=== PATIENT | male | born 1950 | race Caucasian/White ===

== ENCOUNTER → 2017-07-15 10:23 | Outpatient (CLI) | payer OTHER, SELFPAY ==
[2017-07-15 10:31] LABS: Squamous Epithelial Cells - UA 0 SEEN /hpf (0-5)
[2017-07-15 11:38] LABS: Color, Urine Yellow (Yellow); Glucose, Dipstick Normal (Normal); Ketone-Dipstick Negative (Negative); Leukocyte Esterase-Dipstick 25 /ul (Negative); Nitrite-Dipstick Negative (Negative); Occult Blood-Urine 25 /ul (Negative); Protein-Dipstick Negative (Negative); Specific Gravity, Urine 1.025 (1.002-1.030); Urine Bilirubin Dipstick Negative (Negative); Urine Clarity Clear (Clear); Urine Urobilinogen Normal (Normal)
[2017-07-15 11:45] LABS: Bacteria 1+ /hpf (None Seen); Red Blood Cells-Urine 0-5 SEEN /hpf (0-5); White Blood Cells 0-5 SEEN /hpf (0-5)
[2017-07-15 11:46] LABS: Calcium Oxalate Crystals Ur RARE /hpf (<or=2+); Mucous, Urine 1+ /hpf (<or=2+)
[2017-07-15 11:50] LABS: Absolute Lymphocyte Count 2.68 X10^3/ul (0.83-4.51); Absolute Neutrophil Count 5.8 X10^3/uL (2.0-7.7); Basophil# 0.01 X10^3/uL; Basophil% 0.1 % (0-1); Eosinophils% 3.2 % (0-5); Hematocrit 47.1 % (40-54); Hemoglobin 15.8 g/dl (13.0-16.5); Lymphocyte # 2.68 X10^3/ul (4.0); Lymphocyte % 28.5 % (19-41); Mean Corp Hgb Conc 33.5 g/gl (32-36); Mean Corpuscular Hgb 31.8 pg (27.0-32.0); Mean Corpuscular Volume 94.8 fL (80-94); Mean Platelet Vol. 9.3 fl (6.2-12.0); Monocyte# 0.57 X10^3/uL; Monocyte% 6.1 % (0-10); Neutrophil # 5.81 X10^3/uL (2.7-7.7); Neutrophil % 61.9 % (47-70); Platelet Count 250 K/mm3 (150-450); RBC Distribution Width CV 12.6 % (11.6-14.6); Red Blood Count 4.97 M/mm3 (4.6-6.2); White Blood Count 9.4 K/mm3 (4.4-11.0)
[2017-07-15 11:58] LABS: Microalbumin,Random Urine 19.5 mg/L (NO RANGE EST.); Microalbumin:Creatinine Ratio 9.1 mg/g CRE (<30 mg/g CRE)
[2017-07-15 12:02] LABS: Vitamin D,25 Hydroxy 52.3 ng/mL (29.95-100.01)
[2017-07-15 12:03] LABS: POSITIVE COUNT NO; POSITIVE DIFFERENTIAL NO; POSITIVE MORPHOLOGY NO
[2017-07-15 12:05] LABS: AST(SGOT) 16 U/L (15-37); Alanine Aminotransfer ALT/SGPT 26 U/L (16-61); Albumin, Serum 3.5 g/dL (3.2-5.0); Alkaline Phosphatase 49 U/L (45-117); Anion Gap 5 (5-15); BUN 13 mg/dL (7-18); BUN/Creat Ratio 17.7 RATIO (10-20); Calcium,Total 9.4 mg/dL (8.5-10.1); Chloride 100 mmol/L (98-107); Cholesterol 122 mg/dL (200); Creatinine, Serum 0.73 mg/dL (0.70-1.30); EST Glomerular Filtration Rate 113 mL/min (>60); Est Glom Filt Rate - Afr Amer 137 mL/min (>60); Globulin 3.4 g/dL (2.2-4.2); Glucose 110 mg/dL (74-106); High Density Lipoprotein 32 mg/dL; PSA,Total - Annual Screen 0.82 ng/mL (0.00-4.00); Potassium 4.2 mmol/L (3.5-5.1); Protein, Total 6.9 g/dL (6.4-8.2); Sodium Level 140 mmol/L (136-145); Thyroid Stim Hormone (TSH) 2.14 uIU/mL (0.358-3.74); Triglycerides 143 mg/dL; Very Low Density Lipoprotein 29 mg/dL (5-40)
== END ==
PROVIDERS: Family Provider Internal Medicine; PCP Internal Medicine; Visit Provider Internal Medicine
DX: E11.9 Type 2 diabetes mellitus without complications (principal); E55.9 Vitamin D deficiency, unspecified; Z12.5 Encounter for screening for malignant neoplasm of prostate
CPT/HCPCS: 36415; 80053; 80061; 81001; 82043; 82306; 82570; 84153; 84443; 85025; G0103

== ENCOUNTER → 2018-02-11 10:17 | Outpatient (CLI) | payer OTHER, SELFPAY ==
[2018-02-11 10:43] LABS: Absolute Neutrophil Count 5.1 X10^3/uL (2.0-7.7); Basophil# 0.02 X10^3/uL; Basophil% 0.2 % (0-1); Color, Urine Yellow (Yellow); Eosinophil# 0.34 X10^3/uL; Glucose, Dipstick Normal (Normal); Hematocrit 47.4 % (40-54); Hemoglobin 15.8 g/dl (13.0-16.5); Ketone-Dipstick Negative (Negative); Leukocyte Esterase-Dipstick Negative /ul (Negative); Lymphocyte % 30.3 % (19-41); Mean Corp Hgb Conc 33.3 g/gl (32-36); Mean Corpuscular Hgb 31.6 pg (27.0-32.0); Mean Corpuscular Volume 94.8 fL (80-94); Mean Platelet Vol. 8.7 fl (6.2-12.0); Monocyte# 0.53 X10^3/uL; Monocyte% 6.2 % (0-10); Neutrophil # 5.09 X10^3/uL (2.7-7.7); Neutrophil % 59.2 % (47-70); Nitrite-Dipstick Negative (Negative); Occult Blood-Urine 10 /ul (Negative); Platelet Count 184 K/mm3 (150-450); Protein-Dipstick Negative (Negative); RBC Distribution Width CV 13.5 % (11.6-14.6); RBC Distribution Width SD 46.6 fl (35.1-43.9); Specific Gravity, Urine 1.015 (1.002-1.030); Urine Bilirubin Dipstick Negative (Negative); Urine Clarity Clear (Clear); Urine Urobilinogen Normal (Normal); Urine pH 6.5 (5.0 - 8.0); White Blood Count 8.6 K/mm3 (4.4-11.0)
[2018-02-11 10:44] LABS: POSITIVE COUNT NO; POSITIVE DIFFERENTIAL NO; POSITIVE MORPHOLOGY NO
[2018-02-11 11:08] LABS: Microalbumin,Random Urine 5.9 mg/L (NO RANGE EST.); Microalbumin:Creatinine Ratio 5.3 mg/g CRE (<30 mg/g CRE)
[2018-02-11 11:16] LABS: Vitamin D,25 Hydroxy 58.8 ng/mL (29.95-100.01)
[2018-02-11 11:21] LABS: ALB/GLOB Ratio 1.2 RATIO (0.9-2.4); AST(SGOT) 19 U/L (15-37); Alanine Aminotransfer ALT/SGPT 28 U/L (16-61); Albumin, Serum 3.5 g/dL (3.2-5.0); Alkaline Phosphatase 44 U/L (45-117); Anion Gap 4 (5-15); BUN 12 mg/dL (7-18); BUN/Creat Ratio 16.1 RATIO (10-20); Calcium,Total 8.3 mg/dL (8.5-10.1); Chloride 107 mmol/L (98-107); Cholesterol 134 mg/dL (200); Creatinine, Serum 0.75 mg/dL (0.70-1.30); EST Glomerular Filtration Rate 111 mL/min (>60); Est Glom Filt Rate - Afr Amer 134 mL/min (>60); Glucose 100 mg/dL (74-106); High Density Lipoprotein 35 mg/dL; Potassium 4.5 mmol/L (3.5-5.1); Protein, Total 6.5 g/dL (6.4-8.2); Sodium Level 141 mmol/L (136-145); Thyroid Stim Hormone (TSH) 1.87 uIU/mL (0.358-3.74); Triglycerides 126 mg/dL; Very Low Density Lipoprotein 25 mg/dL (5-40)
== END ==
PROVIDERS: Family Provider Internal Medicine; PCP Internal Medicine; Referring Provider Internal Medicine; Visit Provider Internal Medicine
DX: I10 Essential (primary) hypertension (principal); E11.9 Type 2 diabetes mellitus without complications; E78.5 Hyperlipidemia, unspecified; E55.9 Vitamin D deficiency, unspecified
CPT/HCPCS: 36415; 80053; 80061; 81002; 82043; 82306; 82570; 83036; 84443; 85025

== ENCOUNTER → 2018-08-26 15:18 | Outpatient (CLI) | payer OTHER, SELFPAY ==
[2018-08-26 15:27] LABS: Bacteria 0 SEEN /hpf (None Seen); Squamous Epithelial Cells - UA 0 SEEN /hpf (0-5)
[2018-08-26 16:50] LABS: Absolute Lymphocyte Count 2.88 X10^3/ul (0.83-4.51); Absolute Neutrophil Count 4.8 X10^3/uL (2.0-7.7); Basophil# 0.02 X10^3/uL; Basophil% 0.2 % (0-1); Eosinophils% 2.4 % (0-5); Hematocrit 46.1 % (40-54); Hemoglobin 15.9 g/dl (13.0-16.5); Lymphocyte # 2.88 X10^3/ul (4.0); Lymphocyte % 33.8 % (19-41); Mean Corp Hgb Conc 34.5 g/gl (32-36); Mean Corpuscular Hgb 32.2 pg (27.0-32.0); Mean Corpuscular Volume 93.3 fL (80-94); Mean Platelet Vol. 9.1 fl (6.2-12.0); Monocyte# 0.59 X10^3/uL; Monocyte% 6.9 % (0-10); Neutrophil # 4.81 X10^3/uL (2.7-7.7); Neutrophil % 56.6 % (47-70); Platelet Count 232 K/mm3 (150-450); RBC Distribution Width CV 13.6 % (11.6-14.6); RBC Distribution Width SD 45.2 fl (35.1-43.9); Red Blood Count 4.94 M/mm3 (4.6-6.2); White Blood Count 8.5 K/mm3 (4.4-11.0)
[2018-08-26 16:51] LABS: POSITIVE COUNT NO; POSITIVE DIFFERENTIAL NO; POSITIVE MORPHOLOGY NO
[2018-08-26 17:08] LABS: Color, Urine Yellow (Yellow); Glucose, Dipstick Normal (Normal); Ketone-Dipstick 15 mg/dl (Negative); Leukocyte Esterase-Dipstick 25 /ul (Negative); Nitrite-Dipstick Negative (Negative); Occult Blood-Urine 25 /ul (Negative); Protein-Dipstick 15 mg/dl (Negative); Urine Bilirubin Dipstick Negative (Negative); Urine Clarity Clear (Clear); Urine Urobilinogen 1 mg/dl (Normal)
[2018-08-26 17:14] LABS: Microalbumin,Random Urine 31.1 mg/L (NO RANGE EST.); Microalbumin:Creatinine Ratio 13.9 mg/g CRE (<30 mg/g CRE)
[2018-08-26 17:29] LABS: ALB/GLOB Ratio 1.2 RATIO (0.9-2.4); AST(SGOT) 22 U/L (15-37); Alanine Aminotransfer ALT/SGPT 31 U/L (16-61); Albumin, Serum 3.7 g/dL (3.2-5.0); Alkaline Phosphatase 43 U/L (45-117); Anion Gap 6 (5-15); BUN 14 mg/dL (7-18); BUN/Creat Ratio 19.8 RATIO (10-20); Calcium,Total 8.4 mg/dL (8.5-10.1); Chloride 107 mmol/L (98-107); Creatinine, Serum 0.71 mg/dL (0.70-1.30); EST Glomerular Filtration Rate 117 mL/min (>60); Est Glom Filt Rate - Afr Amer 142 mL/min (>60); Globulin 3.2 g/dL (2.2-4.2); Glucose 91 mg/dL (74-106); Mucous, Urine 2+ /hpf (<or=2+); Potassium 3.9 mmol/L (3.5-5.1); Protein, Total 6.9 g/dL (6.4-8.2); Red Blood Cells-Urine 0-5 SEEN /hpf (0-5); Sodium Level 140 mmol/L (136-145); Thyroid Stim Hormone (TSH) 1.55 uIU/mL (0.358-3.74); White Blood Cells 0-5 SEEN /hpf (0-5)
[2018-08-26 17:32] LABS: Vitamin D,25 Hydroxy 64.8 ng/mL (29.95-100.01)
[2018-08-28 16:07] LABS: CHOLESTEROL TOTAL 170 mg/dL (100-199); HDL-C 41 mg/dL (>39); SMALL LDL-P 578 nmol/L (<=527); TRIGLYCERIDES 140 mg/dL (0-149)
[2018-08-29 11:56] LABS: INSULIN RESISTANCE SCORE 66 (<=45); LDL SIZE 20.3 nm (>20.5); LDL-C 101 mg/dL (0-99); LDL-P 1101 nmol/L (<1000)
== END ==
PROVIDERS: Family Provider Internal Medicine; PCP Internal Medicine; Referring Provider Internal Medicine; Visit Provider Internal Medicine
DX: I10 Essential (primary) hypertension (principal); E11.9 Type 2 diabetes mellitus without complications; E78.5 Hyperlipidemia, unspecified; E55.9 Vitamin D deficiency, unspecified
CPT/HCPCS: 36415; 80053; 80061; 81001; 82043; 82306; 82570; 83704; 84443; 85025

== ENCOUNTER 2019-03-28 19:12 | Emergency (ER) | payer OTHER, SELFPAY ==
[2019-03-28 19:14] VITALS: BP 167/95; PULSE 95; RESP 14; TEMP 36.4; O2SAT 97; O2SAT 98; BMI 27.7
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
--- NOTE | 2019-03-28 19:22 | ED.RN ---
family contacted left message at this time
[2019-03-28 19:24] VITALS: PULSE 98; RESP 17; O2SAT 98
[2019-03-28 19:27] LABS: Absolute Lymphocyte Count 8.03 X10^3/uL (0.83-4.51); Absolute Neutrophil Count 6.1 X10^3/uL (2.0-7.7); Basophil# 0.06 X10^3/uL; Basophil% 0.4 % (0-1); Eosinophil# 0.31 X10^3/uL; Hematocrit 46.5 % (40-54); Hemoglobin 15.8 g/dL (13.0-16.5); Lymphocyte # 8.03 X10^3/ul (4.0); Lymphocyte % 51.3 % (19-41); Mean Corpuscular Hgb 32.6 pg (27.0-32.0); Mean Corpuscular Volume 96.1 fL (80-94); Mean Platelet Vol. 8.8 fl (6.2-12.0); Monocyte# 1.09 X10^3/uL; NRBC Flagged by Analyzer 0 % (0-5); Neutrophil # 6.08 X10^3/uL (2.7-7.7); Neutrophil % 38.8 % (47-70); POSITIVE DIFFERENTIAL YES; POSITIVE MORPHOLOGY YES; Platelet Count 287 K/mm3 (150-450); RBC Distribution Width CV 12.8 % (11.6-14.6); RBC Distribution Width SD 45.4 fl (35.1-43.9); Red Blood Count 4.84 M/mm3 (4.6-6.2); White Blood Count 15.7 K/mm3 (4.4-11.0)
[2019-03-28] MEDS: 0.9% Normal Saline 1,000 ML 1000 ML IV (19:28)
[2019-03-28] MEDS: fentaNYL 100 MCG/2 ML Ampul 50 MCG IV (19:28)
[2019-03-28 19:29] LABS: Differential Indicated SCAN CRITERIA MET
[2019-03-28] MEDS: Diphth,Pertuss(Acell),Tet Vac 0.5 ML Vial IM (19:29)
[2019-03-28] MEDS: Ondansetron 4 MG/2 ML Vial IV (19:29)
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
[2019-03-28 19:40] VITALS: BP 195/100; PULSE 105; RESP 22; O2SAT 97
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
[2019-03-28 19:48] LABS: Differential Comment SCANNED
[2019-03-28 19:59] LABS: ALB/GLOB Ratio 1.3 RATIO (0.9-2.4); AST(SGOT) 88 U/L (15-37); Alanine Aminotransfer ALT/SGPT 82 U/L (16-61); Albumin, Serum 3.9 g/dL (3.2-5.0); Alkaline Phosphatase 52 U/L (45-117); Anion Gap 6 (5-15); BUN 18 mg/dL (7-18); BUN/Creat Ratio 18.5 RATIO (10-20); Calcium,Total 9.1 mg/dL (8.5-10.1); Chloride 107 mmol/L (98-107); Creatinine, Serum 0.97 mg/dL (0.70-1.30); EST Glomerular Filtration Rate 81 mL/min (>60); Est Glom Filt Rate - Afr Amer 98 mL/min (>60); Estimated Creatinine Clearance 76.55 ml/min; Glucose 150 mg/dL (74-106); Potassium 3.7 mmol/L (3.5-5.1); Protein, Total 6.9 g/dL (6.4-8.2); Sodium Level 141 mmol/L (136-145)
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
--- NOTE | 2019-03-28 20:04 | ED.RN ---
All belongings given to , Ar. Cell phone was on found in belongings or on pt.
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
== END 2019-03-28 20:04 | disposition short-term general hospital (02) ==
PROVIDERS: Emergency Provider Emergency Medicine; Family Provider Internal Medicine; PCP Internal Medicine
DX: S82.251A Displaced comminuted fracture of shaft of right tibia, initial encounter for closed fracture (principal); S06.9X9A Unspecified intracranial injury with loss of consciousness of unspecified duration, initial encounter; S00.01XA Abrasion of scalp, initial encounter; V03.00XA Pedestrian on foot injured in collision with car, pick-up truck or van in nontraffic accident, initial encounter; Y93.01 Activity, walking, marching and hiking; Y92.481 Parking lot as the place of occurrence of the external cause; Y99.9 Unspecified external cause status; E11.9 Type 2 diabetes mellitus without complications; I10 Essential (primary) hypertension; E78.5 Hyperlipidemia, unspecified; Z79.01 Long term (current) use of anticoagulants; Z79.84 Long term (current) use of oral hypoglycemic drugs; Z79.899 Other long term (current) drug therapy; F17.200 Nicotine dependence, unspecified, uncomplicated
CPT/HCPCS: 29515; 70450; 71045; 72125; 72170; 73590; 80053; 85025; 90715; 96361; 96374; 96375; 99285; J7030; A4216; J2405

== ENCOUNTER 2019-03-31 15:30 | Inpatient (IN) | payer OTHER, MEDICARE, SELFPAY ==
[2019-03-31 15:45] VITALS: BP 147/88; PULSE 85; RESP 16; TEMP 36.6; O2SAT 96; BMI 25.5
[2019-03-31 17:46] LABS: Bedside Glucose 151 mg/dL (70-110)
--- NOTE | 2019-03-31 19:34 | NURSING ---
Pt states he took scopolamine patch off once he got here.
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
[2019-03-31 22:00] VITALS: BP 137/83; PULSE 88; RESP 18; TEMP 36.6; O2SAT 97
[2019-03-31] MEDS: MELATONIN 3 MG TABLET PO (22:09)
[2019-03-31] MEDS: BACITRACIN/POLYMYXIN B 15 GM Tube 1 APPLIC TOPICAL (22:10)
[2019-03-31] MEDS: Famotidine 20 MG Tablet PO (22:10)
[2019-03-31] MEDS: Senna/Docusate Sodium 1 Tablet 2 TABLET PO (22:11)
[2019-03-31] MEDS: oxyCODONE 5 MG Tablet PO (22:11)
[2019-03-31] MEDS: Pravastatin 20 MG Tablet 10 MG PO (22:11)
[2019-03-31 22:26] LABS: Bedside Glucose 118 mg/dL (70-110)
--- NOTE | 2019-04-01 03:26 | NURSING ---
Reviewed and agree with LPNs handoff
[2019-04-01 05:53] LABS: Absolute Lymphocyte Count 2.29 X10^3/uL (0.83-4.51); Absolute Neutrophil Count 4.1 X10^3/uL (2.0-7.7); Basophil# 0.04 X10^3/uL; Basophil% 0.6 % (0-1); Eosinophil# 0.17 X10^3/uL; Eosinophils% 2.3 % (0-5); Hematocrit 25.9 % (40-54); Hemoglobin 8.3 g/dL (13.0-16.5); Lymphocyte # 2.29 X10^3/ul (4.0); Lymphocyte % 31.6 % (19-41); Mean Corpuscular Hgb 31.7 pg (27.0-32.0); Mean Corpuscular Volume 98.9 fL (80-94); Mean Platelet Vol. 8.8 fl (6.2-12.0); Monocyte# 0.61 X10^3/uL; Monocyte% 8.4 % (0-10); NRBC Flagged by Analyzer 0.3 % (0-5); Neutrophil % 56.7 % (47-70); Platelet Count 188 K/mm3 (150-450); RBC Distribution Width CV 13.3 % (11.6-14.6); RBC Distribution Width SD 48.3 fl (35.1-43.9); Red Blood Count 2.62 M/mm3 (4.6-6.2); White Blood Count 7.2 K/mm3 (4.4-11.0)
[2019-04-01] MEDS: oxyCODONE 5 MG Tablet PO (06:11)
[2019-04-01] MEDS: Enoxaparin 40 MG/0.4 ML Syringe SC (06:11)
[2019-04-01] MEDS: Magnesium Hydroxide 30 ML UDC PO (06:12)
[2019-04-01 06:15] LABS: Bedside Glucose 125 mg/dL (70-110)
[2019-04-01 06:19] LABS: Anion Gap 6 (5-15); BUN 11 mg/dL (7-18); BUN/Creat Ratio 20.2 RATIO (10-20); Calcium,Total 7.6 mg/dL (8.5-10.1); Chloride 109 mmol/L (98-107); Creatinine, Serum 0.54 mg/dL (0.70-1.30); EST Glomerular Filtration Rate 158 mL/min (>60); Est Glom Filt Rate - Afr Amer 192 mL/min (>60); Estimated Creatinine Clearance 74.25 ml/min; Glucose 123 mg/dL (74-106); Potassium 3.8 mmol/L (3.5-5.1); Sodium Level 144 mmol/L (136-145)
[2019-04-01 06:40] VITALS: O2SAT 98
[2019-04-01] MEDS: Famotidine 20 MG Tablet PO ×2 (08:05→21:29)
[2019-04-01] MEDS: Lisinopril 20 MG Tablet PO (08:05)
[2019-04-01] MEDS: LINAGLIPTIN 5 MG TABLET PO (08:05)
[2019-04-01] MEDS: metFORMIN HCl 500 MG Tablet PO ×2 (08:05→16:47)
[2019-04-01] MEDS: Senna/Docusate Sodium 1 Tablet 2 TABLET PO ×2 (08:05→21:39)
[2019-04-01 08:07] VITALS: BP 140/77; PULSE 80; RESP 18; TEMP 36.9; O2SAT 97
[2019-04-01] MEDS: BACITRACIN/POLYMYXIN B 15 GM Tube 1 APPLIC TOPICAL ×2 (09:09→21:39)
[2019-04-01 11:21] LABS: Bedside Glucose 110 mg/dL (70-110)
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
--- NOTE | 2019-04-01 16:08 | CHAPLAIN ---
Type of Pastoral Visit _x__ Initial Visit ___ Follow-up Visit ___ On-call Visit ___ General Patient Visit ___ Spiritual Assessment ___ Family Conference ___ Bereavement ___ Rapid Response ___ Code Blue ___ Other (describe below) Pastoral Care Referral From _x__ Patient ___ Family ___ Nurse ___ Physician ___ Marble Cutter ___ Bulker ___ Other (describe below) Sacrament/Intervention _x__ Active listening ___ Anointing ___ Restoration ___ Bereavement ___ Communion ___ Elvia exploration ___ _x__ Life review ___ Prayer ___ Reconciliation ___ Sacrament of Sick _x__ Supportive presence ___ Wedding ___ Other (describe below) Pastoral Comments
[2019-04-01 17:06] LABS: Bedside Glucose 122 mg/dL (70-110)
[2019-04-01 20:33] VITALS: BP 139/83; PULSE 90; RESP 16; TEMP 36.7; O2SAT 98
[2019-04-01] MEDS: MELATONIN 3 MG TABLET PO (21:28)
[2019-04-01] MEDS: Pravastatin 20 MG Tablet 10 MG PO (21:39)
[2019-04-01] MEDS: Bisacodyl 10 MG Suppository RECTAL (21:40)
[2019-04-01 21:46] LABS: Bedside Glucose 121 mg/dL (70-110)
--- NOTE | 2019-04-02 05:08 | NURSING ---
Reviewed and agree with LPNs handoff
[2019-04-02] MEDS: Enoxaparin 40 MG/0.4 ML Syringe SC (06:09)
[2019-04-02] MEDS: oxyCODONE 5 MG Tablet PO (06:09)
[2019-04-02 06:41] LABS: Bedside Glucose 120 mg/dL (70-110)
[2019-04-02 07:09] VITALS: O2SAT 94
[2019-04-02 07:31] VITALS: BP 153/80; PULSE 83; RESP 18; TEMP 36.8; O2SAT 100
[2019-04-02] MEDS: Famotidine 20 MG Tablet PO ×2 (09:20→21:45)
[2019-04-02] MEDS: Lisinopril 20 MG Tablet PO (09:20)
[2019-04-02] MEDS: metFORMIN HCl 500 MG Tablet PO ×2 (09:20→17:27)
[2019-04-02] MEDS: BACITRACIN/POLYMYXIN B 15 GM Tube 1 APPLIC TOPICAL ×2 (09:20→21:46)
[2019-04-02] MEDS: LINAGLIPTIN 5 MG TABLET PO (09:20)
[2019-04-02] MEDS: Senna/Docusate Sodium 1 Tablet 2 TABLET PO ×2 (09:21→21:47)
[2019-04-02 11:26] LABS: Bedside Glucose 131 mg/dL (70-110)
[2019-04-02] MEDS: Acetaminophen 500 MG Tablet 1000 MG PO ×2 (13:00→21:45)
[2019-04-02 16:06] LABS: Bedside Glucose 105 mg/dL (70-110)
[2019-04-02 19:36] VITALS: BP 100/86; PULSE 87; RESP 16; TEMP 36.7; O2SAT 99
[2019-04-02 21:11] LABS: Bedside Glucose 106 mg/dL (70-110)
[2019-04-02] MEDS: MELATONIN 3 MG TABLET PO (21:45)
[2019-04-02] MEDS: Pravastatin 20 MG Tablet 10 MG PO (21:46)
[2019-04-03] MEDS: Enoxaparin 40 MG/0.4 ML Syringe SC (06:16)
[2019-04-03 06:46] LABS: Bedside Glucose 118 mg/dL (70-110)
[2019-04-03 07:10] VITALS: O2SAT 98
[2019-04-03] MEDS: Senna/Docusate Sodium 1 Tablet 2 TABLET PO ×2 (07:49→20:56)
[2019-04-03] MEDS: LINAGLIPTIN 5 MG TABLET PO (07:49)
[2019-04-03] MEDS: Famotidine 20 MG Tablet PO ×2 (07:49→20:56)
[2019-04-03] MEDS: Lisinopril 20 MG Tablet PO (07:49)
[2019-04-03] MEDS: metFORMIN HCl 500 MG Tablet PO ×2 (07:49→17:16)
[2019-04-03] MEDS: BACITRACIN/POLYMYXIN B 15 GM Tube 1 APPLIC TOPICAL ×2 (07:50→20:55)
[2019-04-03 07:53] VITALS: BP 133/71; PULSE 79; RESP 16; TEMP 36.6; O2SAT 98
[2019-04-03] MEDS: Acetaminophen 500 MG Tablet 1000 MG PO ×2 (11:17→21:06)
[2019-04-03 11:31] LABS: Bedside Glucose 98 mg/dL (70-110)
[2019-04-03 16:51] LABS: Bedside Glucose 127 mg/dL (70-110)
[2019-04-03 19:00] VITALS: BP 119/85; BP 122/70; BP 135/68; PULSE 100; PULSE 89; PULSE 90
[2019-04-03 19:41] VITALS: BP 122/70; PULSE 89; RESP 16; TEMP 36.7; O2SAT 98
[2019-04-03 20:51] LABS: Bedside Glucose 108 mg/dL (70-110)
[2019-04-03] MEDS: MELATONIN 3 MG TABLET PO (20:56)
[2019-04-03] MEDS: Pravastatin 20 MG Tablet 10 MG PO (20:56)
[2019-04-03] MEDS: Bisacodyl 10 MG Suppository RECTAL (20:57)
[2019-04-03] MEDS: Meclizine 12.5 MG Tablet PO (20:57)
[2019-04-03 21:00] VITALS: PULSE 89; RESP 16; O2SAT 98
--- NOTE | 2019-04-04 02:10 | NURSING ---
Reviewed and agree with CLOTH LAYER documentation and charting.
[2019-04-04] MEDS: Enoxaparin 40 MG/0.4 ML Syringe SC (05:02)
[2019-04-04] MEDS: oxyCODONE 5 MG Tablet PO (05:02)
[2019-04-04 06:15] LABS: Bedside Glucose 115 mg/dL (70-110)
[2019-04-04 06:28] LABS: Absolute Lymphocyte Count 1.64 X10^3/uL (0.83-4.51); Absolute Neutrophil Count 4.3 X10^3/uL (2.0-7.7); Basophil# 0.03 X10^3/uL; Basophil% 0.4 % (0-1); Eosinophil# 0.28 X10^3/uL; Hematocrit 27.6 % (40-54); Lymphocyte # 1.64 X10^3/ul (4.0); Lymphocyte % 23.2 % (19-41); Mean Corp Hgb Conc 32.6 g/dL (32-36); Mean Corpuscular Volume 98.2 fL (80-94); Mean Platelet Vol. 8.3 fl (6.2-12.0); Monocyte# 0.73 X10^3/uL; Monocyte% 10.3 % (0-10); NRBC Flagged by Analyzer 0.7 % (0-5); Neutrophil # 4.34 X10^3/uL (2.7-7.7); Neutrophil % 61.4 % (47-70); POSITIVE MORPHOLOGY YES; Platelet Count 292 K/mm3 (150-450); RBC Distribution Width CV 13.5 % (11.6-14.6); RBC Distribution Width SD 47.1 fl (35.1-43.9); Red Blood Count 2.81 M/mm3 (4.6-6.2); White Blood Count 7.1 K/mm3 (4.4-11.0)
[2019-04-04 07:03] LABS: Differential Indicated SCAN CRITERIA MET
[2019-04-04 07:24] LABS: Hypochromasia RARE; Platelet Estimate ADEQUATE (ADEQ); Polychromasia RARE; Reactive Lymphocyte RARE
[2019-04-04] MEDS: LINAGLIPTIN 5 MG TABLET PO (07:54)
[2019-04-04] MEDS: Lisinopril 20 MG Tablet PO (07:54)
[2019-04-04] MEDS: Senna/Docusate Sodium 1 Tablet 2 TABLET PO ×2 (07:54→20:15)
[2019-04-04] MEDS: metFORMIN HCl 500 MG Tablet PO ×2 (07:55→17:05)
[2019-04-04] MEDS: Famotidine 20 MG Tablet PO ×2 (07:55→20:15)
[2019-04-04] MEDS: BACITRACIN/POLYMYXIN B 15 GM Tube 1 APPLIC TOPICAL ×2 (07:56→20:16)
[2019-04-04 08:37] VITALS: BP 121/65; PULSE 81; RESP 16; TEMP 36.6; O2SAT 98
[2019-04-04] MEDS: Meclizine 12.5 MG Tablet PO ×2 (09:32→20:15)
[2019-04-04 12:15] LABS: Bedside Glucose 115 mg/dL (70-110)
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
--- NOTE | 2019-04-04 13:17 | PCM.RU.PYE ---
Admission Information Status Changes from Prescreening?: No changes Identified Actual Problem List:: Falls, Mobility Impaired, Self Care Deficit Potential Problem List:: DVT, Bleeding, Infection, UTI, Aspiration, Falls, Skin Integrity, Depression Risk of Complications DVT: LMWH, MIHAI Hose, Sequential Compression Device Bleeding: Monitor Lab Values, Nursing to Teach Precautions for anti-coagulation therapy., Wound, if applicable, to be assessed every shift., Stroke patients assessed for lethargy or change in status. Infection: Clinical Staff to Monitor for S/S of infection:, S/S of infection include fever, redness, warmth, etc. Urinary Tract Infection: Monitor for frequency, burning, discomfort, or incontinence., Nursing will obtain urine sample for urinalysis and C&S when ordered. Aspiration: Clinical staff will monitor for coughing, drooling, congestion., Speech will evaluate swallowing and dsyphasia., Nursing will monitor patient swallowing during meals. Falls: Patient will be evaluated for Fall Precautions, Patient will be placed on Fall Precautions as indicated per protocol. Skin Breakdown: Nursing will assess skin daily using assessment tool., Nursing will place on Skin Breakdown Precautions as indicated. Pain: Clinical staff will assess patient's pain level per protocol., Medications will be given, if needed, and the pain level reassessed., Other methods: Massage, distraction, decrease stimulus, etc. used PRN. Plan of Care Patient requires physician specializing in physical medicine and rehab oversight to provide close medical supervision of rehab issues including: Pain Management, Sleep Problems, Bowel and Bladder, Medical and co-morbidity Management, DVT prophylaxis, Rehabilitation Leadership, Coordination of treatment team Patient needs Physical Therapy: For a minimum of 1 hour, At least 5 out of 7 days Patient needs Physical Therapy to improve:: Mobility, Mobility, Mobility, Strengthening, Transfers, Stretching, ROM, Endurance, Stairs, Gait, Balance Patient needs Occupational Therapy: For a minimum of 1 hour, At least 5 out of 7 days Patient needs Occupational Therapy to improve ADL's incl.: Eating, Grooming, Bathing, Dressing, Toileting, Toilet transfers, Community Reintegration, Higher functioning activities, Household tasks, Adaptive Equipment, Splinting, Other activities as determined Patient requires speech therapy: For a minimum of 1 hour, At least 5 out of 7 days Patient requires speech therapy for: Swallowing, Cognition, Language Skills, Compensatory Strategies Patient requires / Rehabilitation Nursing for: Pain Issues, Identifying and preventing risk factors, Monitoring and reporting current medical conditions, Assisting with ambulation, transfer, and all ADL's, Teaching patients about disease process and medications, Family teaching, Providing safe environment, Bowel and Bladder Issues, Skin integrity, Medication Management Patient needs Polytechnic Registrar/ Case Management for: Discharge Planning, Arranging Home Equipment or Services, Family Interventions Patient needs Dietary and Nutrition Services for: Adequate Nutrition, Nutritional Supplements, Nutritional Education Goals Patient will remain: free from falls, or injury at time of discharge. Patient will perform bed mobility at: MOD I level of assist. Patient will complete transfers from bed to chair at: MOD I level of assist. Patient will ambulate: 100 feet, with MOD I assist, with LRD Patient will complete upper body dressing at: MOD I level of assist. Patient will complete lower body dressing at: MOD I level of assist. Patient will complete toileting at: MOD I level of assist. Patient will perform bathing at: MOD I level of assist. Patient will complete grooming at: MOD I level of assist. Patient will complete home management skills at: MOD I level of assist. Patient will achieve: 12 stairs, at MOD I assist Patient will have pain level of: of 3 or less Patient's skin will: remain intact, free from infection. Patient will receive: adequate nutrition. Discharge Planning Pt Prognosis for Sig. Practical Improv. w/in Reasonable Time: Good Estimated Length of stay (days): 16 Anticipated D/C Destination: Home with Outpt Therapy Was Preadmission Assessment Accurate?: Yes
--- NOTE | 2019-04-04 16:47 | CASEMGMT ---
Social Work Spoke with patient about DME needs, ramp and discharge plans. Pt is NWB to right LE for 4-6 weeks and will be discharging home at w/c level. Therapy will work with pt on making that a safe transition. LATRICE collaborating with Oliver [facility], [place] [phone], to get DME and ramp paid for and ordered for pt at [place]. [place] will be requesting for extension for pt to DC mid-next week, if pt is ready. Coordinating to get proper paperwork in order and DME in place. Will continue to follow. LIBRADO FontanezW
[2019-04-04 17:16] LABS: Bedside Glucose 85 mg/dL (70-110)
[2019-04-04 19:37] VITALS: BP 121/68; PULSE 85; RESP 16; TEMP 36.7; O2SAT 95
[2019-04-04 20:00] VITALS: PULSE 85; RESP 16
[2019-04-04] MEDS: Pravastatin 20 MG Tablet 10 MG PO (20:15)
[2019-04-04] MEDS: MELATONIN 3 MG TABLET PO (20:15)
[2019-04-04] MEDS: Acetaminophen 500 MG Tablet 1000 MG PO (20:16)
[2019-04-04 21:20] LABS: Bedside Glucose 129 mg/dL (70-110)
--- NOTE | 2019-04-05 02:05 | NURSING ---
Reviewed and agree with COMPUTING TUTOR documentation and charting.
[2019-04-05] MEDS: Bisacodyl 10 MG Suppository RECTAL (04:31)
[2019-04-05] MEDS: Enoxaparin 40 MG/0.4 ML Syringe SC (06:20)
[2019-04-05 06:45] LABS: Bedside Glucose 122 mg/dL (70-110)
[2019-04-05 07:20] VITALS: BP 110/68; PULSE 85; RESP 16; TEMP 36.6; O2SAT 98
[2019-04-05] MEDS: BACITRACIN/POLYMYXIN B 15 GM Tube 1 APPLIC TOPICAL ×2 (07:54→21:47)
[2019-04-05] MEDS: Famotidine 20 MG Tablet PO ×2 (07:55→21:48)
[2019-04-05] MEDS: Senna/Docusate Sodium 1 Tablet 2 TABLET PO ×2 (07:55→21:48)
[2019-04-05] MEDS: LINAGLIPTIN 5 MG TABLET PO (07:55)
[2019-04-05] MEDS: Lisinopril 20 MG Tablet PO (07:55)
[2019-04-05] MEDS: metFORMIN HCl 500 MG Tablet PO ×2 (07:55→16:53)
[2019-04-05] MEDS: Meclizine 12.5 MG Tablet PO (08:32)
[2019-04-05] MEDS: oxyCODONE 5 MG Tablet PO (08:32)
[2019-04-05 11:51] LABS: Bedside Glucose 113 mg/dL (70-110)
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
[2019-04-05 16:01] LABS: Albumin, Serum 3.4 g/dL (3.2-5.0); Calcium,Total 8.9 mg/dL (8.5-10.1)
--- NOTE | 2019-04-05 19:25 | NURSING ---
Pt ambulating around unit in wheelchair with visitors.
[2019-04-05 21:45] VITALS: BP 129/68; PULSE 96; RESP 18; TEMP 36.6; O2SAT 96
[2019-04-05] MEDS: MELATONIN 3 MG TABLET PO (21:48)
[2019-04-05] MEDS: Pravastatin 20 MG Tablet 10 MG PO (21:48)
--- NOTE | 2019-04-06 02:54 | NURSING ---
Reviewed and agree with BAKING POWDER MIXER documentation and charting.
[2019-04-06] MEDS: Bisacodyl 10 MG Suppository RECTAL (05:09)
[2019-04-06] MEDS: Acetaminophen 500 MG Tablet 1000 MG PO ×2 (05:11→21:59)
[2019-04-06] MEDS: Enoxaparin 40 MG/0.4 ML Syringe SC (05:11)
[2019-04-06] MEDS: LINAGLIPTIN 5 MG TABLET PO ×3 (08:25)
[2019-04-06] MEDS: BACITRACIN/POLYMYXIN B 15 GM Tube 1 APPLIC TOPICAL ×2 (08:25→21:58)
[2019-04-06] MEDS: Senna/Docusate Sodium 1 Tablet 2 TABLET PO ×2 (08:25→21:59)
[2019-04-06] MEDS: Famotidine 20 MG Tablet PO ×2 (08:25→21:58)
[2019-04-06] MEDS: Lisinopril 20 MG Tablet PO (08:25)
[2019-04-06] MEDS: metFORMIN HCl 500 MG Tablet PO ×2 (08:25→17:03)
[2019-04-06] MEDS: Meclizine 12.5 MG Tablet PO (08:26)
[2019-04-06 09:02] VITALS: BP 123/69; PULSE 75; RESP 16; TEMP 36.7; O2SAT 97
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
[2019-04-06] MEDS: Polyethylene Glycol 3350 17 GM PACKET PO (14:54)
[2019-04-06 20:13] VITALS: BP 111/60; PULSE 89; RESP 16; TEMP 36.9; O2SAT 99
[2019-04-06] MEDS: MELATONIN 3 MG TABLET PO (21:58)
[2019-04-06] MEDS: Pravastatin 20 MG Tablet 10 MG PO (21:59)
--- NOTE | 2019-04-07 00:48 | NURSING ---
REVIEWED AND AGREE WITH PHARMACY GRADUATE INTERN'S FUNCTIONAL ASSESSMENT AND HANDOFF CHARTING.
[2019-04-07] MEDS: Enoxaparin 40 MG/0.4 ML Syringe SC (06:19)
[2019-04-07] MEDS: Acetaminophen 500 MG Tablet 1000 MG PO ×3 (06:19→22:03)
[2019-04-07 07:00] VITALS: BP 144/78; PULSE 79; RESP 16; TEMP 36.5; O2SAT 97
[2019-04-07] MEDS: Famotidine 20 MG Tablet PO ×2 (07:51→21:59)
[2019-04-07] MEDS: metFORMIN HCl 500 MG Tablet PO ×2 (07:51→17:52)
[2019-04-07] MEDS: Senna/Docusate Sodium 1 Tablet 2 TABLET PO ×2 (07:51→22:00)
[2019-04-07] MEDS: Lisinopril 20 MG Tablet PO (07:51)
[2019-04-07] MEDS: Polyethylene Glycol 3350 17 GM PACKET PO (07:51)
[2019-04-07] MEDS: BACITRACIN/POLYMYXIN B 15 GM Tube 1 APPLIC TOPICAL ×2 (07:51→21:59)
--- NOTE | 2019-04-07 09:52 | CASEMGMT ---
Social Work IDT met with patient and for Team Meeting. Discussed patient's progress in therapy. Pt is NWB to left LE. Pt is min to CGA for sit to stand, CGA hopping 80 ft with FWW, 12 steps going backward SBA, SBA for all ADLs. PT completed car transfer is CGA to SBA. Stitches in head to be removed on this day. Pt is under worker's comp insurance. [employer] has been collaborating with [employer] to get all DME and HHC approved - submitted for ramp, transport w/c, tub bench, FWW, hospital bed and HHC PT/OT3x/wk and SN 1x/wk for 6-8 weeks. Submitting update on progress on this day and requesting DC 04/13 to allow DME and ramp to be in placed to ensure pt safety returning home. Will continue to follow. Nicki Lee, [employer]
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
[2019-04-07] MEDS: LINAGLIPTIN 5 MG TABLET PO (13:35)
[2019-04-07] MEDS: Capsaicin 0.025% 1 APPLIC Tube TOPICAL (13:35)
[2019-04-07] MEDS: Meclizine 12.5 MG Tablet PO (21:58)
[2019-04-07] MEDS: APIXABAN 2.5 MG TABLET PO (21:58)
[2019-04-07] MEDS: Pravastatin 20 MG Tablet 10 MG PO (21:59)
[2019-04-07] MEDS: MELATONIN 3 MG TABLET PO (21:59)
[2019-04-07 22:00] VITALS: BP 115/66; PULSE 91; RESP 18; TEMP 36.7; O2SAT 97
--- NOTE | 2019-04-08 01:37 | NURSING ---
REVIEWED AND AGREE WITH SILK FOLDER'S FUNCTIONAL AND HANDOFF CHARTING.
[2019-04-08 07:16] VITALS: BP 121/68; PULSE 89; RESP 16; TEMP 36.6; O2SAT 97
[2019-04-08] MEDS: BACITRACIN/POLYMYXIN B 15 GM Tube 1 APPLIC TOPICAL ×2 (07:57→22:16)
[2019-04-08] MEDS: metFORMIN HCl 500 MG Tablet PO ×2 (07:58→16:57)
[2019-04-08] MEDS: Senna/Docusate Sodium 1 Tablet 2 TABLET PO ×2 (07:58→22:16)
[2019-04-08] MEDS: LINAGLIPTIN 5 MG TABLET PO (07:58)
[2019-04-08] MEDS: Lisinopril 20 MG Tablet PO (07:58)
[2019-04-08] MEDS: Famotidine 20 MG Tablet PO ×2 (07:58→22:16)
[2019-04-08] MEDS: APIXABAN 2.5 MG TABLET PO ×2 (07:58→22:15)
[2019-04-08] MEDS: Polyethylene Glycol 3350 17 GM PACKET PO (07:58)
[2019-04-08] MEDS: Acetaminophen 500 MG Tablet 1000 MG PO ×2 (07:59→16:57)
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
[2019-04-08 17:08] LABS: Vitamin D 1,25-Dihydroxy 25.2 pg/mL (19.9-79.3)
[2019-04-08 21:49] VITALS: BP 135/71; PULSE 87; RESP 16; TEMP 36.7; O2SAT 99
[2019-04-08] MEDS: Pravastatin 20 MG Tablet 10 MG PO (22:16)
[2019-04-08] MEDS: MELATONIN 3 MG TABLET PO (22:16)
[2019-04-09] MEDS: Acetaminophen 500 MG Tablet 1000 MG PO ×3 (03:51→21:58)
[2019-04-09 08:00] VITALS: BP 149/98; PULSE 72; RESP 18; TEMP 36.6; O2SAT 100
[2019-04-09] MEDS: APIXABAN 2.5 MG TABLET PO ×2 (08:04→20:32)
[2019-04-09] MEDS: metFORMIN HCl 500 MG Tablet PO ×2 (08:04→16:28)
[2019-04-09] MEDS: Lisinopril 20 MG Tablet PO (08:05)
[2019-04-09] MEDS: Polyethylene Glycol 3350 17 GM PACKET PO (08:11)
[2019-04-09] MEDS: LINAGLIPTIN 5 MG TABLET PO (08:11)
[2019-04-09] MEDS: Senna/Docusate Sodium 1 Tablet 2 TABLET PO ×2 (08:11→20:31)
[2019-04-09] MEDS: Famotidine 20 MG Tablet PO ×2 (08:11→20:32)
[2019-04-09] MEDS: BACITRACIN/POLYMYXIN B 15 GM Tube 1 APPLIC TOPICAL ×2 (08:16→20:33)
[2019-04-09 18:35] VITALS: BP 126/62; PULSE 80; RESP 16; TEMP 36.6; O2SAT 98
[2019-04-09] MEDS: Pravastatin 20 MG Tablet 10 MG PO (20:32)
[2019-04-09] MEDS: MELATONIN 3 MG TABLET PO (20:32)
[2019-04-10] MEDS: Acetaminophen 500 MG Tablet 1000 MG PO ×3 (07:07→21:20)
[2019-04-10 07:10] LABS: Bedside Glucose 112 mg/dL (70-110)
[2019-04-10 07:38] VITALS: BP 123/75; PULSE 81; RESP 16; TEMP 36.8; O2SAT 98
[2019-04-10] MEDS: LINAGLIPTIN 5 MG TABLET PO (09:01)
[2019-04-10] MEDS: Senna/Docusate Sodium 1 Tablet 2 TABLET PO ×2 (09:01→21:20)
[2019-04-10] MEDS: BACITRACIN/POLYMYXIN B 15 GM Tube 1 APPLIC TOPICAL ×2 (09:01→21:21)
[2019-04-10] MEDS: metFORMIN HCl 500 MG Tablet PO ×2 (09:01→16:15)
[2019-04-10] MEDS: APIXABAN 2.5 MG TABLET PO ×2 (09:01→21:21)
[2019-04-10] MEDS: Famotidine 20 MG Tablet PO ×2 (09:01→21:21)
[2019-04-10] MEDS: Lisinopril 20 MG Tablet PO (09:01)
[2019-04-10] MEDS: Pravastatin 20 MG Tablet 10 MG PO (21:20)
[2019-04-10] MEDS: MELATONIN 3 MG TABLET PO (21:21)
[2019-04-10 22:00] VITALS: BP 108/69; PULSE 85; RESP 16; TEMP 36.6; O2SAT 100
[2019-04-11 07:37] VITALS: BP 127/80; PULSE 87; RESP 16; TEMP 36.5; O2SAT 99
[2019-04-11] MEDS: BACITRACIN/POLYMYXIN B 15 GM Tube 1 APPLIC TOPICAL ×2 (07:57→21:48)
[2019-04-11] MEDS: metFORMIN HCl 500 MG Tablet PO ×2 (07:57→17:56)
[2019-04-11] MEDS: APIXABAN 2.5 MG TABLET PO ×2 (07:57→21:47)
[2019-04-11] MEDS: Famotidine 20 MG Tablet PO ×2 (07:57→21:48)
[2019-04-11] MEDS: LINAGLIPTIN 5 MG TABLET PO (07:57)
[2019-04-11] MEDS: Senna/Docusate Sodium 1 Tablet 2 TABLET PO ×2 (07:57→21:48)
[2019-04-11] MEDS: Polyethylene Glycol 3350 17 GM PACKET PO (07:57)
[2019-04-11] MEDS: Lisinopril 20 MG Tablet PO (07:57)
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
[2019-04-11] MEDS: Acetaminophen 500 MG Tablet 1000 MG PO ×2 (14:30→21:48)
[2019-04-11 21:23] VITALS: BP 124/66; PULSE 87; RESP 17; TEMP 36.4; O2SAT 99
[2019-04-11] MEDS: Pravastatin 20 MG Tablet 10 MG PO (21:47)
[2019-04-11] MEDS: MELATONIN 3 MG TABLET PO (21:48)
[2019-04-11 22:00] VITALS: PULSE 87; RESP 17; O2SAT 99
[2019-04-12] MEDS: Acetaminophen 500 MG Tablet 1000 MG PO ×2 (03:45→21:50)
[2019-04-12] MEDS: Lisinopril 20 MG Tablet PO (08:26)
[2019-04-12] MEDS: LINAGLIPTIN 5 MG TABLET PO ×2 (08:26)
[2019-04-12] MEDS: Senna/Docusate Sodium 1 Tablet 2 TABLET PO (08:26)
[2019-04-12] MEDS: metFORMIN HCl 500 MG Tablet PO ×2 (08:26→17:07)
[2019-04-12] MEDS: Famotidine 20 MG Tablet PO ×2 (08:27→21:49)
[2019-04-12] MEDS: BACITRACIN/POLYMYXIN B 15 GM Tube 1 APPLIC TOPICAL ×2 (08:27→21:49)
[2019-04-12] MEDS: APIXABAN 2.5 MG TABLET PO ×2 (08:27→21:49)
[2019-04-12 08:34] VITALS: BP 118/74; PULSE 89; RESP 18; TEMP 36.7; O2SAT 97
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
--- NOTE | 2019-04-12 17:04 | CASEMGMT ---
Social Work Spoke with worker's doroteo C.M. whom stated the ramp will be in place tomorrow, but unsure if DME will be delivered. Pt has 's appt tomorrow and needs DME to go home safely. Spoke with pt and and requesting to DC 04/15 once all DME is in place. C.M. agreeable. Plan: DC home 04/15 with DME and [facility] PT/OT/SN. Nicki Lee, [employer]
[2019-04-12] MEDS: MELATONIN 3 MG TABLET PO (21:48)
[2019-04-12] MEDS: Pravastatin 20 MG Tablet 10 MG PO (21:49)
[2019-04-12] MEDS: Senna/Docusate Sodium 1 Tablet PO (21:50)
[2019-04-12 21:59] VITALS: BP 116/62; PULSE 88; RESP 16; TEMP 36.8; O2SAT 97
[2019-04-12 22:00] VITALS: PULSE 88; RESP 16; O2SAT 97
[2019-04-13] MEDS: Polyethylene Glycol 3350 17 GM PACKET PO (05:19)
[2019-04-13] MEDS: BACITRACIN/POLYMYXIN B 15 GM Tube 1 APPLIC TOPICAL (05:24)
[2019-04-13] MEDS: Senna/Docusate Sodium 1 Tablet PO (05:25)
[2019-04-13] MEDS: Lisinopril 20 MG Tablet PO (05:25)
[2019-04-13] MEDS: Famotidine 20 MG Tablet PO (05:25)
[2019-04-13] MEDS: metFORMIN HCl 500 MG Tablet PO ×2 (05:25→16:15)
[2019-04-13] MEDS: APIXABAN 2.5 MG TABLET PO (05:25)
[2019-04-13] MEDS: Ondansetron ODT 4 MG Tablet PO (07:21)
[2019-04-13] MEDS: Acetaminophen 500 MG Tablet 1000 MG PO ×2 (07:21→16:18)
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
[2019-04-13 10:00] VITALS: BP 120/70; PULSE 72; RESP 14; TEMP 36.3; O2SAT 94
--- NOTE | 2019-04-13 13:39 | CASEMGMT ---
Social Work Received call from worker's comp [employer] Grover that DME is scheduled to be delivered to patient's house on this date and insurance is not agreeable to paying additional time. Spoke with IDT, pt and - all agreeable to DC home on this date after DME is in place. Plan: DC home 04/13. LIBRADO FontanezW
--- NOTE | 2019-04-13 17:18 | PCM.DC ---
- Discharge Diagnoses Current Active Problems: Current Active and Chronic Problems Debility (Acute) HTN (hypertension) (Chronic) HLD (hyperlipidemia) (Chronic) Diabetes II (Chronic) Fracture of right tibia and fibula (Acute) with ORIF Tobacco dependence Macrocytic anemia - likely due to recent acute blood loss related to fracture, surgery to repair fracture, ecchymosis and lacerations You will use the following diet at home:: Calorie/Carbohydrate Controlled (specify 1200, 1400, etc), Cardiac - low fat and low salt along with carb control Your food should be the consistency of: Regular Your liquids should be the consistency of: Regular/Thin Discharge Activity: May Not Drive, Use Walker, - - activity as instructed by PT and OT Weight Bearing Status: No weight bearing - Right leg Call your doctor if your incision/area has: Continuous Slow Oozing, Sudden Increased Bleeding, Increased Pain/ Swelling, Increased Redness, Foul Smelling Discharge, Swelling at the incision site Call your doctor if you observe: Fever of 101 or Higher, Numbness or Tingling, Change in Color, Inability to urinate, Inability to have a bowel movement, Shortness of breath, Dizziness, Fainting spells, Swelling in the ankles, Chest pain, Calf discomfort, Uncontrolled pain Cleanse incision/area with: Soap & Water Additional Instructions: 1. My cell phone number is [phone]. Please feel free to call me over the next 5 days if you have problems or questions since most physician offices will not be open and neither are the insurance company offices. 2. If you need to take the Oxycodone it may bind you up again so you may need a stool softener......I recommend Miralax, Citracil or Metamucil. Whole grains, fruit, vegetables and prune juice also help. 3. Pleasure to meet you Naeem and Happy Thanksgiving to you and Ar. Allergies/Adverse Reactions: Allergies No Known Allergies Allergy (Verified 03/28/19 19:13) Medications to take at Discharge Lisinopril 1 tab PO DAILY 03/28/19 Metformin HCl 500 mg PO DAILY 03/28/19 Sitagliptin Phosphate [Januvia] 1 tab PO BID 03/28/19 Acetaminophen [Tylenol] 2 tab PO TID PRN 03/31/19 Bacitracin/Polymyxin B Ointmen [Polysporin Ointment] 1 applic TOPICAL BID 03/31/19 Famotidine [Pepcid] 20 mg PO BID 03/31/19 Melatonin/Pyridoxine HCl (B6) [Melatonin 3 mg Tablet] 3 mg PO QHS 03/31/19 Ondansetron HCl [Zofran] 4 mg PO Q6H PRN PRN 03/31/19 Pravastatin [Pravachol] 10 mg PO QHS 03/31/19 Apixaban [Eliquis] 2.5 mg PO BID #28 tab 04/13/19 Meclizine HCl [Antivert] 12.5 mg PO TID PRN PRN #20 tab 04/13/19 Oxycodone [Oxyir] 5 mg PO Q4H PRN PRN 7 Days #20 tab 04/13/19 The following prescriptions were given: Meclizine HCl [Antivert] 12.5 mg PO TID PRN PRN #20 tab PRN Reason: Dizziness Transmission Status: Received by [facility] Apixaban [Eliquis] 2.5 mg PO BID #28 tab Transmission Status: Received by [facility] Oxycodone [Oxyir] 5 mg PO Q4H PRN PRN 7 Days #20 tab PRN Reason: pain Transmission Status: Received by [facility] Primary Care Physician: Antonia Ibrahim DO [Primary Care Provider] - Please follow up with your Primary Care Physician in: 1 week Test Results: Test results from this visit will be discussed in further detail at your follow-up appointment, if applicable. Please Follow Up With: Orthopedics - Dr. Wahl When: as arranged with them Proposed Discharge Date: 04/13/19
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
[2019-04-13 18:00] VITALS: BP 120/68; PULSE 82; RESP 18; TEMP 36.8; O2SAT 100
--- NOTE | 2019-04-13 18:12 | NURSING ---
discharged home with family. Discharged instructions and medications reviewed with pt and family. denies questions or concerns
== END 2019-04-13 18:00 | disposition home health service (06) | DRG 561 ==
PROVIDERS: Family Medicine; Admitting Provider Psychiatry & Neurology Neurology; Family Provider Internal Medicine; PCP Internal Medicine; Referring Provider Psychiatry & Neurology Neurology; Visit Provider Internal Medicine
DX: S82.201D Unspecified fracture of shaft of right tibia, subsequent encounter for closed fracture with routine healing (principal); S82.401D Unspecified fracture of shaft of right fibula, subsequent encounter for closed fracture with routine healing; V03.10XD Pedestrian on foot injured in collision with car, pick-up truck or van in traffic accident, subsequent encounter; E11.9 Type 2 diabetes mellitus without complications; E78.5 Hyperlipidemia, unspecified; I10 Essential (primary) hypertension; F17.290 Nicotine dependence, other tobacco product, uncomplicated; D50.0 Iron deficiency anemia secondary to blood loss (chronic); S01.01XD Laceration without foreign body of scalp, subsequent encounter
CPT/HCPCS: 36415; 80048; 82040; 82310; 82652; 82962; 85025; 92523; 97110; 97116; 97162; 97166; 97530; 97535; 97542; 97802; 99406

== ENCOUNTER → 2019-04-27 10:24 | Outpatient (CLI) | payer OTHER, SELFPAY ==
[2019-03-31 15:45] VITALS: BMI 25.5
[2019-04-27 10:34] LABS: Bacteria 0 SEEN /hpf (None Seen); White Blood Cells 0 SEEN /hpf (0-5)
[2019-04-27 11:11] LABS: Color, Urine Yellow (Yellow); Glucose, Dipstick Normal (Normal); Ketone-Dipstick Negative (Negative); Leukocyte Esterase-Dipstick Negative /ul (Negative); Nitrite-Dipstick Negative (Negative); Occult Blood-Urine 10 /ul (Negative); Protein-Dipstick Negative (Negative); Urine Bilirubin Dipstick Negative (Negative); Urine Clarity Sl. Cloudy (Clear); Urine Urobilinogen Normal (Normal)
[2019-04-27 11:13] LABS: Absolute Lymphocyte Count 2.04 X10^3/uL (0.83-4.51); Basophil# 0.05 X10^3/uL; Basophil% 0.7 % (0-1); Eosinophil# 0.79 X10^3/uL; Eosinophils% 10.6 % (0-5); Hematocrit 38.4 % (40-54); Hemoglobin 12.1 g/dL (13.0-16.5); Lymphocyte # 2.04 X10^3/ul (4.0); Lymphocyte % 27.4 % (19-41); Mean Corp Hgb Conc 31.5 g/dL (32-36); Mean Corpuscular Volume 98.5 fL (80-94); Mean Platelet Vol. 8.6 fl (6.2-12.0); Monocyte# 0.55 X10^3/uL; Monocyte% 7.4 % (0-10); NRBC Flagged by Analyzer 0 % (0-5); Neutrophil % 53.6 % (47-70); Platelet Count 325 K/mm3 (150-450); RBC Distribution Width CV 13.8 % (11.6-14.6); RBC Distribution Width SD 49.5 fl (35.1-43.9); White Blood Count 7.5 K/mm3 (4.4-11.0)
[2019-04-27 11:23] LABS: Mucous, Urine 2+ /hpf (<or=2+); Red Blood Cells-Urine 0-5 SEEN /hpf (0-5); Squamous Epithelial Cells - UA 0-5 SEEN /hpf (0-5)
[2019-04-27 11:29] LABS: Microalbumin,Random Urine 6.7 mg/L (NO RANGE EST.); Microalbumin:Creatinine Ratio 5.9 mg/g CRE (<30 mg/g CRE)
[2019-04-27 11:42] LABS: Vitamin D,25 Hydroxy 42.1 ng/mL (29.95-100.01)
[2019-04-27 11:52] LABS: ALB/GLOB Ratio 1.2 RATIO (0.9-2.4); AST(SGOT) 19 U/L (15-37); Alanine Aminotransfer ALT/SGPT 33 U/L (16-61); Albumin, Serum 3.7 g/dL (3.2-5.0); Alkaline Phosphatase 111 U/L (45-117); Anion Gap 5 (5-15); BUN 12 mg/dL (7-18); BUN/Creat Ratio 18.9 RATIO (10-20); Calcium,Total 8.8 mg/dL (8.5-10.1); Chloride 102 mmol/L (98-107); Creatinine, Serum 0.64 mg/dL (0.70-1.30); EST Glomerular Filtration Rate 132 mL/min (>60); Est Glom Filt Rate - Afr Amer 160 mL/min (>60); Globulin 3.1 g/dL (2.2-4.2); Glucose 115 mg/dL (74-106); Potassium 4.2 mmol/L (3.5-5.1); Protein, Total 6.8 g/dL (6.4-8.2); Sodium Level 139 mmol/L (136-145); Thyroid Stim Hormone (TSH) 1.88 uIU/mL (0.358-3.74)
[2019-04-28 16:07] LABS: CHOLESTEROL TOTAL 135 mg/dL (100-199); HDL-C 38 mg/dL (>39); HDL-P TOTAL 28.7 umol/L (>=30.5); SMALL LDL-P 607 nmol/L (<=527); TRIGLYCERIDES 163 mg/dL (0-149)
[2019-04-28 17:01] LABS: INSULIN RESISTANCE SCORE 45 (<=45); LDL SIZE 19.8 nm (>20.5); LDL-C 64 mg/dL (0-99); LDL-P 810 nmol/L (<1000)
== END ==
PROVIDERS: Family Provider Internal Medicine; PCP Internal Medicine; Referring Provider Internal Medicine; Visit Provider Internal Medicine
DX: E11.9 Type 2 diabetes mellitus without complications (principal); E55.9 Vitamin D deficiency, unspecified
CPT/HCPCS: 36415; 80053; 80061; 81001; 82043; 82306; 82570; 83704; 84443; 85025

== ENCOUNTER 2019-07-29 10:30 | Outpatient (RCR) | payer OTHER, SELFPAY ==
[2019-03-31 15:45] VITALS: BMI 25.5
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
--- NOTE | 2019-10-07 13:56 | HP.PT.NRP ---
LETY STOUT was seen in my office for initial evaluation on 06/22/19. The following Plan of Care was established for this patient: Initial Frequency: 3x /Week Initial Duration: 4 Weeks Patient/Client Instruction: Educate patient on: Condition, Plan of Care For the Purpose of:: To decrease pain, To increase ROM, To improve muscle performance and motor function, To improve ability to perform ADL's, To increase tolerance to activity/condition/position, To improve performance and independence with ADL's, To improve ability of physical actions for home/community/work/leisure, To improve gait and locomotor functions, To improve endurance, To improve balance, To improve safety with gait, To reduce risk of recurrence, To improve ability to perform tasks related to life management Therapeutic Exercise to Include: Strength training, Endurance training, Balance training, Flexibilty training, Gait and locomotor training, Active ROM For the Purpose of:: To decrease pain, To increase ROM, To improve muscle performance and motor function, To improve ability to perform ADL's, To increase tolerance to activity/condition/position, To improve performance and independence with ADL's, To improve ability of physical actions for home/community/work/leisure, To improve gait and locomotor functions, To increase flexibility/ROM, To assume or resume ADL's, To reduce risk of recurrence, To improve ability to perform tasks related to life management TENS: Yes IF ES: Yes Cryotherapy (ice pack, ice massage): Yes Vasopneumatic device: Yes For the Purpose of:: To decrease pain, To increase ROM, To improve nutrient delivery to tissue, To improve health of tissue, To decrease soft tissue restriction This patient was last seen in our office 07/29/19. Pertinent comments regarding their Physical therapy will appear below: Patient had ankle fx with s/p ORIF with tx focusing on ROM,strengthneing ankle but cont to wear Boot with gait ,patient stop coming to be due to COVID 19.Patient was to see DR for progression to shoe. At this point I will be discontinuing this patient from physical therapy. I would be happy to see this patient again in the future if found appropriate by the physician. Thank you! Feng Mosqueda, PT, Cert MDT, OCS
== END 2019-07-29 19:00 | disposition home or self-care (01) ==
LOC: PT 10:30
PROVIDERS: PCP Internal Medicine
DX: S82.201D Unspecified fracture of shaft of right tibia, subsequent encounter for closed fracture with routine healing (principal); S82.401D Unspecified fracture of shaft of right fibula, subsequent encounter for closed fracture with routine healing; Z98.890 Other specified postprocedural states; Z87.81 Personal history of (healed) traumatic fracture
CPT/HCPCS: 97110; 97162

== ENCOUNTER → 2019-10-31 08:34 | Outpatient (CLI) | payer OTHER, SELFPAY ==
[2019-03-31 15:45] VITALS: BMI 25.5
[2019-10-31 09:14] LABS: Bacteria 0 SEEN /hpf (None Seen); Squamous Epithelial Cells - UA 0 SEEN /hpf (0-5); White Blood Cells 0 SEEN /hpf (0-5)
[2019-10-31 09:46] LABS: Color, Urine Yellow (Yellow); Glucose, Dipstick Normal (Normal); Ketone-Dipstick Negative (Negative); Leukocyte Esterase-Dipstick Negative /ul (Negative); Nitrite-Dipstick Negative (Negative); Occult Blood-Urine 10 /ul (Negative); Protein-Dipstick Negative (Negative); Specific Gravity, Urine 1.015 (1.002-1.030); Urine Bilirubin Dipstick Negative (Negative); Urine Clarity Sl. Cloudy (Clear); Urine Urobilinogen Normal (Normal)
[2019-10-31 09:49] LABS: Absolute Lymphocyte Count 2.66 X10^3/uL (0.83-4.51); Absolute Neutrophil Count 4.1 X10^3/uL (2.0-7.7); Basophil# 0.03 X10^3/uL; Basophil% 0.4 % (0-1); Eosinophil# 0.45 X10^3/uL; Eosinophils% 5.8 % (0-5); Hematocrit 45.3 % (40-54); Hemoglobin 14.5 g/dL (13.0-16.5); Lymphocyte # 2.66 X10^3/ul (4.0); Lymphocyte % 34.1 % (19-41); Mean Corpuscular Hgb 30.3 pg (27.0-32.0); Mean Corpuscular Volume 94.6 fL (80-94); Mean Platelet Vol. 8.9 fl (6.2-12.0); Monocyte# 0.58 X10^3/uL; Monocyte% 7.4 % (0-10); NRBC Flagged by Analyzer 0 % (0-5); Neutrophil # 4.05 X10^3/uL (2.7-7.7); Neutrophil % 51.9 % (47-70); Platelet Count 233 K/mm3 (150-450); RBC Distribution Width CV 14.5 % (11.6-14.6); RBC Distribution Width SD 50.4 fl (35.1-43.9); Red Blood Count 4.79 M/mm3 (4.6-6.2); White Blood Count 7.8 K/mm3 (4.4-11.0)
[2019-10-31 09:54] LABS: Mucous, Urine 1+ /hpf (<or=2+); Red Blood Cells-Urine 0-5 SEEN /hpf (0-5)
[2019-10-31 10:12] LABS: Microalbumin,Random Urine 12.9 mg/L (NO RANGE EST.); Microalbumin:Creatinine Ratio 6.9 mg/g CRE (<30 mg/g CRE)
[2019-10-31 10:43] LABS: ALB/GLOB Ratio 1.1 RATIO (0.9-2.4); AST(SGOT) 20 U/L (15-37); Alanine Aminotransfer ALT/SGPT 24 U/L (16-61); Albumin, Serum 3.4 g/dL (3.2-5.0); Alkaline Phosphatase 89 U/L (45-117); Anion Gap 4 (5-15); BUN 13 mg/dL (7-18); BUN/Creat Ratio 18.4 RATIO (10-20); Calcium,Total 8.4 mg/dL (8.5-10.1); Chloride 108 mmol/L (98-107); Cholesterol 140 mg/dL (200); Creatinine, Serum 0.71 mg/dL (0.70-1.30); EST Glomerular Filtration Rate 117 mL/min (>60); Est Glom Filt Rate - Afr Amer 142 mL/min (>60); Globulin 3.1 g/dL (2.2-4.2); Glucose 107 mg/dL (74-106); High Density Lipoprotein 38 mg/dL; Protein, Total 6.5 g/dL (6.4-8.2); Sodium Level 142 mmol/L (136-145); Thyroid Stim Hormone (TSH) 1.75 uIU/mL (0.358-3.74); Triglycerides 109 mg/dL; Very Low Density Lipoprotein 22 mg/dL (5-40)
[2019-10-31 10:45] LABS: Vitamin D,25 Hydroxy 55.5 ng/mL
== END ==
PROVIDERS: PCP Internal Medicine; Referring Provider Internal Medicine; Visit Provider Internal Medicine
DX: I10 Essential (primary) hypertension (principal); E55.9 Vitamin D deficiency, unspecified; E78.5 Hyperlipidemia, unspecified
CPT/HCPCS: 36415; 80053; 80061; 81001; 82043; 82306; 82570; 84443; 85025

== ENCOUNTER → 2020-03-15 15:31 | Outpatient (CLI) | payer OTHER, SELFPAY ==
[2020-02-09 10:41] VITALS: BMI 25.5
--- NOTE | 2020-03-15 15:34 | US_ITS ---
STUDY: SUPERFICIAL ULTRASOUND - LEFT KNEE REASON FOR EXAM: Male, 69 years old. PAIN POSTERIOR LEFT KNEE TECHNIQUE: A superficial ultrasound was performed with real-time and static hope-scale imaging. COMPARISON: None. FINDINGS: Multiple longitudinal and transverse ultrasound images of the left popliteal fossa demonstrate a cystic mass most consistent with a Johnston''s cyst. 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 MRI may be useful. Electronically Signed: Srikanth Quevedo MD at 16:46 EDT Tel , Service support ,
== END ==
PROVIDERS: PCP Internal Medicine; Referring Provider Internal Medicine; Visit Provider Internal Medicine
DX: M79.605 Pain in left leg (principal)
CPT/HCPCS: 76882

== ENCOUNTER → 2020-05-01 09:56 | Outpatient (CLI) | payer OTHER, SELFPAY ==
[2020-02-09 10:41] VITALS: BMI 25.5
[2020-05-01 10:05] LABS: Bacteria 0 SEEN /hpf (None Seen); Squamous Epithelial Cells - UA 0 SEEN /hpf (0-5); White Blood Cells 0 SEEN /hpf (0-5)
[2020-05-01 10:45] LABS: Absolute Lymphocyte Count 3.14 X10^3/uL (0.83-4.51); Absolute Neutrophil Count 4.3 X10^3/uL (2.0-7.7); Basophil# 0.04 X10^3/uL; Basophil% 0.5 % (0-1); Eosinophils% 5.8 % (0-5); Hematocrit 46.7 % (40-54); Hemoglobin 15.4 g/dL (13.0-16.5); Lymphocyte # 3.14 X10^3/ul (4.0); Lymphocyte % 36.6 % (19-41); Mean Corpuscular Hgb 31.5 pg (27.0-32.0); Mean Corpuscular Volume 95.5 fL (80-94); Mean Platelet Vol. 8.8 fl (6.2-12.0); Monocyte# 0.59 X10^3/uL; Monocyte% 6.9 % (0-10); NRBC Flagged by Analyzer 0 % (0-5); Platelet Count 225 K/mm3 (150-450); RBC Distribution Width CV 13.1 % (11.6-14.6); RBC Distribution Width SD 46.8 fl (35.1-43.9); Red Blood Count 4.89 M/mm3 (4.6-6.2); White Blood Count 8.6 K/mm3 (4.4-11.0)
[2020-05-01 10:46] LABS: Color, Urine Straw (Yellow); Glucose, Dipstick Normal (Normal); Ketone-Dipstick Negative (Negative); Leukocyte Esterase-Dipstick Negative /ul (Negative); Nitrite-Dipstick Negative (Negative); Occult Blood-Urine 10 /ul (Negative); Protein-Dipstick Negative (Negative); Urine Bilirubin Dipstick Negative (Negative); Urine Clarity Sl. Cloudy (Clear); Urine Urobilinogen Normal (Normal)
[2020-05-01 11:05] LABS: Microalbumin,Random Urine 9.1 mg/L (NO RANGE EST.); Microalbumin:Creatinine Ratio 7.7 mg/g CRE (<30 mg/g CRE)
[2020-05-01 11:12] LABS: Mucous, Urine 2+ /hpf (<or=2+)
[2020-05-01 11:13] LABS: Red Blood Cells-Urine 0-5 SEEN /hpf (0-5)
[2020-05-01 11:14] LABS: Vitamin D,25 Hydroxy 45.8 ng/mL
[2020-05-01 11:23] LABS: ALB/GLOB Ratio 1.1 RATIO (0.9-2.4); AST(SGOT) 17 U/L (15-37); Alanine Aminotransfer ALT/SGPT 32 U/L (16-61); Albumin, Serum 3.5 g/dL (3.2-5.0); Alkaline Phosphatase 64 U/L (45-117); Anion Gap 3 (5-15); BUN 18 mg/dL (7-18); Calcium,Total 8.9 mg/dL (8.5-10.1); Chloride 108 mmol/L (98-107); Cholesterol 173 mg/dL (200); Creatinine, Serum 0.82 mg/dL (0.70-1.30); EST Glomerular Filtration Rate 99 mL/min (>60); Est Glom Filt Rate - Afr Amer 119 mL/min (>60); Globulin 3.2 g/dL (2.2-4.2); Glucose 103 mg/dL (74-106); High Density Lipoprotein 44 mg/dL; Potassium 4.1 mmol/L (3.5-5.1); Protein, Total 6.7 g/dL (6.4-8.2); Sodium Level 143 mmol/L (136-145); Thyroid Stim Hormone (TSH) 2.81 uIU/mL (0.358-3.74); Triglycerides 186 mg/dL; Very Low Density Lipoprotein 37 mg/dL (5-40)
[2020-05-04 16:45] LABS: Hemoglobin A1c 6.1 % (3.8-5.6)
== END ==
PROVIDERS: PCP Internal Medicine; Referring Provider Internal Medicine; Visit Provider Internal Medicine
DX: E11.9 Type 2 diabetes mellitus without complications (principal); E55.9 Vitamin D deficiency, unspecified
CPT/HCPCS: 36415; 80053; 80061; 81001; 82043; 82306; 82570; 83036; 84443; 85025

== ENCOUNTER → 2021-01-03 12:34 | Outpatient (CLI) | payer OTHER, SELFPAY ==
[2021-01-03 12:43] LABS: Bacteria 0 SEEN /hpf (None Seen); Mucous, Urine 0 SEEN /hpf (<or=2+); Red Blood Cells-Urine 0 SEEN /hpf (0-5); Squamous Epithelial Cells - UA 0 SEEN /hpf (0-5); White Blood Cells 0 SEEN /hpf (0-5)
[2021-01-03 14:08] LABS: Absolute Neutrophil Count 4.3 X10^3/uL (2.0-7.7); Basophil# 0.04 X10^3/uL; Basophil% 0.5 % (0-1); Eosinophil# 0.32 X10^3/uL; Hematocrit 46.4 % (40-54); Hemoglobin 15.2 g/dL (13.0-16.5); Lymphocyte % 35.9 % (19-41); Mean Corp Hgb Conc 32.8 g/dL (32-36); Mean Corpuscular Hgb 31.3 pg (27.0-32.0); Mean Corpuscular Volume 95.5 fL (80-94); Mean Platelet Vol. 9.1 fl (6.2-12.0); Monocyte# 0.54 X10^3/uL; Monocyte% 6.7 % (0-10); NRBC Flagged by Analyzer 0 % (0-5); Neutrophil # 4.26 X10^3/uL (2.7-7.7); Neutrophil % 52.7 % (47-70); Platelet Count 247 K/mm3 (150-450); RBC Distribution Width CV 13.1 % (11.6-14.6); RBC Distribution Width SD 46.4 fl (35.1-43.9); Red Blood Count 4.86 M/mm3 (4.6-6.2); White Blood Count 8.1 K/mm3 (4.4-11.0)
[2021-01-03 14:17] LABS: Color, Urine Yellow (Yellow); Glucose, Dipstick Normal (Normal); Ketone-Dipstick Negative (Negative); Leukocyte Esterase-Dipstick Negative /ul (Negative); Nitrite-Dipstick Negative (Negative); Occult Blood-Urine Negative /ul (Negative); Protein-Dipstick Negative (Negative); Specific Gravity, Urine 1.015 (1.002-1.030); Urine Bilirubin Dipstick Negative (Negative); Urine Clarity Clear (Clear); Urine Urobilinogen Normal (Normal)
[2021-01-03 14:31] LABS: Microalbumin,Random Urine 8.3 mg/L (NO RANGE EST.)
[2021-01-03 14:35] LABS: Vitamin D,25 Hydroxy 77.6 ng/mL
[2021-01-03 14:46] LABS: ALB/GLOB Ratio 1.1 RATIO (0.9-2.4); AST(SGOT) 26 U/L (15-37); Alanine Aminotransfer ALT/SGPT 38 U/L (16-61); Albumin, Serum 3.5 g/dL (3.2-5.0); Alkaline Phosphatase 53 U/L (45-117); Anion Gap 3 (5-15); BUN 12 mg/dL (7-18); BUN/Creat Ratio 16.8 RATIO (10-20); Calcium,Total 8.3 mg/dL (8.5-10.1); Chloride 104 mmol/L (98-107); Cholesterol 156 mg/dL (200); Creatinine, Serum 0.72 mg/dL (0.70-1.30); EST Glomerular Filtration Rate 115 mL/min (>60); Est Glom Filt Rate - Afr Amer 139 mL/min (>60); Globulin 3.3 g/dL (2.2-4.2); Glucose 106 mg/dL (74-106); High Density Lipoprotein 41 mg/dL; PSA,Total - Annual Screen 0.84 ng/mL (0.00-4.00); Potassium 4.4 mmol/L (3.5-5.1); Protein, Total 6.8 g/dL (6.4-8.2); Sodium Level 137 mmol/L (136-145); Thyroid Stim Hormone (TSH) 2.16 uIU/mL (0.358-3.74); Triglycerides 153 mg/dL; Very Low Density Lipoprotein 31 mg/dL (5-40)
== END ==
PROVIDERS: PCP Internal Medicine; Referring Provider Internal Medicine; Visit Provider Internal Medicine
DX: E11.9 Type 2 diabetes mellitus without complications (principal); I10 Essential (primary) hypertension; E55.9 Vitamin D deficiency, unspecified; Z12.5 Encounter for screening for malignant neoplasm of prostate
CPT/HCPCS: 36415; 80053; 80061; 81001; 82043; 82306; 82570; 84153; 84443; 85025; G0103

== ENCOUNTER 2021-08-05 11:51 | Outpatient (CLI) | payer OTHER, SELFPAY ==
[2021-08-05 11:59] LABS: Bacteria 0 SEEN /hpf (None Seen); Mucous, Urine 0 SEEN /hpf (<or=2+); Squamous Epithelial Cells - UA 0 SEEN /hpf (0-5)
[2021-08-05 12:17] LABS: Absolute Lymphocyte Count 3.32 X10^3/uL (0.83-4.51); Absolute Neutrophil Count 4.9 X10^3/uL (2.0-7.7); Basophil# 0.05 X10^3/uL; Basophil% 0.5 % (0-1); Eosinophil# 0.34 X10^3/uL; Eosinophils% 3.6 % (0-5); Hematocrit 44.8 % (40-54); Hemoglobin 15.7 g/dL (13.0-16.5); Lymphocyte # 3.32 X10^3/ul (0.83-4.51); Lymphocyte % 35.4 % (19-41); Mean Corpuscular Hgb 32.6 pg (27.0-32.0); Mean Corpuscular Volume 92.9 fL (80-94); Mean Platelet Vol. 8.6 fl (6.2-12.0); Monocyte# 0.73 X10^3/uL; Monocyte% 7.8 % (0-10); NRBC Flagged by Analyzer 0 % (0-5); Neutrophil # 4.94 X10^3/uL (2.7-7.7); Neutrophil % 52.6 % (47-70); POSITIVE MORPHOLOGY YES; Platelet Count 232 K/mm3 (150-450); RBC Distribution Width CV 13.6 % (11.6-14.6); RBC Distribution Width SD 46.2 fl (35.1-43.9); Red Blood Count 4.82 M/mm3 (4.6-6.2); White Blood Count 9.4 K/mm3 (4.4-11.0)
[2021-08-05 12:18] LABS: Color, Urine Yellow (Yellow); Differential Indicated SCAN CRITERIA MET; Glucose, Dipstick Normal (Normal); Ketone-Dipstick Negative (Negative); Leukocyte Esterase-Dipstick 25 /ul (Negative); Nitrite-Dipstick Negative (Negative); Occult Blood-Urine 25 /ul (Negative); Protein-Dipstick Negative (Negative); Urine Bilirubin Dipstick Negative (Negative); Urine Clarity Sl. Cloudy (Clear); Urine Urobilinogen Normal (Normal); Urine pH 6.5 (5.0 - 8.0)
[2021-08-05 12:24] LABS: Red Blood Cells-Urine 0-5 SEEN /hpf (0-5); White Blood Cells 0-5 SEEN /hpf (0-5)
[2021-08-05 12:48] LABS: Reactive Lymphocyte RARE
[2021-08-05 12:51] LABS: Microalbumin,Random Urine 7.5 mg/L (NO RANGE EST.)
[2021-08-05 13:00] LABS: Vitamin D,25 Hydroxy 82.3 ng/mL
[2021-08-05 13:05] LABS: ALB/GLOB Ratio 1.2 RATIO (0.9-2.4); AST(SGOT) 25 U/L (15-37); Alanine Aminotransfer ALT/SGPT 36 U/L (16-61); Albumin, Serum 3.5 g/dL (3.2-5.0); Alkaline Phosphatase 49 U/L (45-117); Anion Gap 1 (5-15); BUN 12 mg/dL (7-18); Calcium,Total 8.7 mg/dL (8.5-10.1); Chloride 108 mmol/L (98-107); Cholesterol 129 mg/dL (200); Creatinine, Serum 0.92 mg/dL (0.70-1.30); EST Glomerular Filtration Rate 86 mL/min (>60); Est Glom Filt Rate - Afr Amer 103 mL/min (>60); Glucose 120 mg/dL (74-106); High Density Lipoprotein 34 mg/dL; Protein, Total 6.5 g/dL (6.4-8.2); Sodium Level 140 mmol/L (136-145); Thyroid Stim Hormone (TSH) 3.71 uIU/mL (0.358-3.74); Triglycerides 155 mg/dL; Very Low Density Lipoprotein 31 mg/dL (5-40)
== END 2021-08-05 23:59 | disposition home or self-care (01) ==
LOC: LAB 11:55
PROVIDERS: PCP Internal Medicine; Visit Provider Internal Medicine
DX: E78.5 Hyperlipidemia, unspecified (principal); E11.9 Type 2 diabetes mellitus without complications; E55.9 Vitamin D deficiency, unspecified
CPT/HCPCS: 36415; 80053; 80061; 81001; 82043; 82306; 82570; 84443; 85025

== ENCOUNTER → 2022-03-11 | Outpatient (CLI) | payer OTHER, SELFPAY ==
[2022-03-11 15:12] LABS: Color, Urine Yellow (Yellow); Glucose, Dipstick Normal (Normal); Ketone-Dipstick Negative (Negative); Leukocyte Esterase-Dipstick Negative /ul (Negative); Nitrite-Dipstick Negative (Negative); Occult Blood-Urine 25 /ul (Negative); Protein-Dipstick 15 mg/dl (Negative); Specific Gravity, Urine 1.015 (1.002-1.030); Urine Bilirubin Dipstick Negative (Negative); Urine Clarity Sl. Cloudy (Clear); Urine Urobilinogen Normal (Normal); Urine pH 6.5 (5.0 - 8.0)
[2022-03-11 15:13] LABS: Absolute Lymphocyte Count 1.89 X10^3/uL (0.83-4.51); Absolute Neutrophil Count 5.9 X10^3/uL (2.0-7.7); Basophil# 0.04 X10^3/uL; Basophil% 0.5 % (0-1); Eosinophil# 0.14 X10^3/uL; Eosinophils% 1.6 % (0-5); Hematocrit 45.9 % (40-54); Hemoglobin 15.3 g/dL (13.0-16.5); Lymphocyte # 1.89 X10^3/ul (0.83-4.51); Mean Corp Hgb Conc 33.3 g/dL (32-36); Mean Corpuscular Hgb 31.5 pg (27.0-32.0); Mean Corpuscular Volume 94.4 fL (80-94); Mean Platelet Vol. 9.2 fl (6.2-12.0); Monocyte# 0.56 X10^3/uL; Monocyte% 6.5 % (0-10); NRBC Flagged by Analyzer 0 % (0-5); Neutrophil # 5.92 X10^3/uL (2.7-7.7); Neutrophil % 69.1 % (47-70); Platelet Count 259 K/mm3 (150-450); RBC Distribution Width CV 13.5 % (11.6-14.6); Red Blood Count 4.86 M/mm3 (4.6-6.2); White Blood Count 8.6 K/mm3 (4.4-11.0)
[2022-03-11 15:48] LABS: ALB/GLOB Ratio 1.2 RATIO (0.9-2.4); AST(SGOT) 20 U/L (15-37); Alanine Aminotransfer ALT/SGPT 33 U/L (16-61); Albumin, Serum 3.7 g/dL (3.2-5.0); Alkaline Phosphatase 49 U/L (45-117); Anion Gap 0 (5-15); BUN 14 mg/dL (7-18); BUN/Creat Ratio 18.1 RATIO (10-20); Calcium,Total 8.7 mg/dL (8.5-10.1); Chloride 107 mmol/L (98-107); Cholesterol 153 mg/dL (200); Creatinine, Serum 0.77 mg/dL (0.70-1.30); EST Glomerular Filtration Rate 105 mL/min (>60); Est Glom Filt Rate - Afr Amer 127 mL/min (>60); Glucose 132 mg/dL (74-106); High Density Lipoprotein 46 mg/dL; PSA,Total - Annual Screen 0.93 ng/mL (0.00-4.00); Potassium 4.1 mmol/L (3.5-5.1); Protein, Total 6.7 g/dL (6.4-8.2); Sodium Level 137 mmol/L (136-145); Thyroid Stim Hormone (TSH) 1.74 uIU/mL (0.358-3.74); Triglycerides 121 mg/dL; Very Low Density Lipoprotein 24 mg/dL (5-40)
[2022-03-11 16:00] LABS: Microalbumin,Random Urine 24.1 mg/L (NO RANGE EST.); Microalbumin:Creatinine Ratio 19.9 mg/g CRE (<30 mg/g CRE)
[2022-03-11 17:54] LABS: Hepatitis C Antibody Non-Reactive (Nonreactive); Vitamin D,25 Hydroxy 51.1 ng/mL
== END | disposition home or self-care (01) ==
LOC: LAB 13:52
PROVIDERS: PCP Internal Medicine; Referring Provider Internal Medicine; Visit Provider Internal Medicine
DX: E87.5 Hyperkalemia (principal); E11.9 Type 2 diabetes mellitus without complications; I10 Essential (primary) hypertension; E55.9 Vitamin D deficiency, unspecified; Z12.5 Encounter for screening for malignant neoplasm of prostate
CPT/HCPCS: 36415; 80053; 80061; 81002; 82043; 82306; 82570; 84153; 84443; 85025; 86803; G0103

== ENCOUNTER → 2022-09-30 | Outpatient (CLI) | payer OTHER, SELFPAY ==
[2022-09-30 14:19] LABS: Bacteria 0 SEEN /hpf (None Seen); Mucous, Urine 0 SEEN /hpf (<or=2+); Red Blood Cells-Urine 0 SEEN /hpf (0-5); White Blood Cells 0 SEEN /hpf (0-5)
[2022-09-30 15:26] LABS: Color, Urine Yellow (Yellow); Glucose, Dipstick Normal (Normal); Ketone-Dipstick Negative (Negative); Leukocyte Esterase-Dipstick Negative /ul (Negative); Nitrite-Dipstick Negative (Negative); Occult Blood-Urine Negative /ul (Negative); Protein-Dipstick Negative (Negative); Urine Bilirubin Dipstick Negative (Negative); Urine Clarity Sl. Cloudy (Clear); Urine Urobilinogen Normal (Normal)
[2022-09-30 15:29] LABS: Absolute Lymphocyte Count 3.03 X10^3/uL (0.83-4.51); Absolute Neutrophil Count 4.6 X10^3/uL (2.0-7.7); Basophil# 0.03 X10^3/uL; Basophil% 0.4 % (0-1); Eosinophils% 2.4 % (0-5); Hematocrit 48.3 % (40-54); Lymphocyte # 3.03 X10^3/ul (0.83-4.51); Lymphocyte % 35.9 % (19-41); Mean Corp Hgb Conc 33.1 g/dL (32-36); Mean Corpuscular Hgb 31.6 pg (27.0-32.0); Mean Corpuscular Volume 95.3 fL (80-94); Mean Platelet Vol. 9.1 fl (6.2-12.0); Monocyte# 0.52 X10^3/uL; Monocyte% 6.2 % (0-10); NRBC Flagged by Analyzer 0 % (0-5); Neutrophil # 4.64 X10^3/uL (2.7-7.7); Neutrophil % 54.9 % (47-70); Platelet Count 255 K/mm3 (150-450); RBC Distribution Width CV 13.3 % (11.6-14.6); RBC Distribution Width SD 47.1 fl (35.1-43.9); Red Blood Count 5.07 M/mm3 (4.6-6.2); White Blood Count 8.4 K/mm3 (4.4-11.0)
[2022-09-30 15:46] LABS: Microalbumin,Random Urine 5.1 mg/L (NO RANGE EST.); Microalbumin:Creatinine Ratio 6.2 mg/g CRE (<30 mg/g CRE)
[2022-09-30 16:27] LABS: Vitamin D,25 Hydroxy 107.2 ng/mL
[2022-09-30 16:39] LABS: ALB/GLOB Ratio 1.2 RATIO (0.9-2.4); AST(SGOT) 25 U/L (15-37); Alanine Aminotransfer ALT/SGPT 33 U/L (16-61); Albumin, Serum 3.7 g/dL (3.2-5.0); Alkaline Phosphatase 49 U/L (45-117); Anion Gap 4 (5-15); BUN 11 mg/dL (7-18); BUN/Creat Ratio 14.3 RATIO (10-20); Calcium,Total 9.1 mg/dL (8.5-10.1); Chloride 105 mmol/L (98-107); Cholesterol 134 mg/dL (200); Creatinine, Serum 0.77 mg/dL (0.70-1.30); EST Glomerular Filtration Rate 105 mL/min (>60); Est Glom Filt Rate - Afr Amer 127 mL/min (>60); Glucose 112 mg/dL (74-106); High Density Lipoprotein 38 mg/dL; Potassium 4.1 mmol/L (3.5-5.1); Protein, Total 6.7 g/dL (6.4-8.2); Sodium Level 139 mmol/L (136-145); Thyroid Stim Hormone (TSH) 1.92 uIU/mL (0.358-3.74); Triglycerides 127 mg/dL; Very Low Density Lipoprotein 25 mg/dL (5-40)
[2022-09-30 16:44] LABS: Squamous Epithelial Cells - UA 0-5 SEEN /hpf (0-5)
== END | disposition home or self-care (01) ==
LOC: LAB 14:16
PROVIDERS: PCP Internal Medicine; Referring Provider Internal Medicine; Visit Provider Internal Medicine
DX: E55.9 Vitamin D deficiency, unspecified (principal); E78.5 Hyperlipidemia, unspecified; I10 Essential (primary) hypertension
CPT/HCPCS: 36415; 80053; 80061; 81001; 82043; 82306; 82570; 84443; 85025

== ENCOUNTER → 2023-02-06 | Outpatient (CLI) | payer OTHER, SELFPAY ==
[2023-02-06 15:00] LABS: PSA,Total - Annual Screen 1.17 ng/mL (0.00-4.00)
== END | disposition home or self-care (01) ==
LOC: LAB 13:53
PROVIDERS: PCP Internal Medicine; Referring Provider Internal Medicine; Visit Provider Internal Medicine
DX: Z12.5 Encounter for screening for malignant neoplasm of prostate (principal)
CPT/HCPCS: 36415; 84153; G0103

== ENCOUNTER → 2023-05-22 | Outpatient (CLI) | payer OTHER, SELFPAY ==
[2023-05-22 11:55] LABS: Bacteria 0 SEEN /hpf (None Seen); Mucous, Urine 0 SEEN /hpf (<or=2+); Red Blood Cells-Urine 0 SEEN /hpf (0-5); White Blood Cells 0 SEEN /hpf (0-5)
[2023-05-22 12:17] LABS: Absolute Lymphocyte Count 3.25 X10^3/uL (0.83-4.51); Absolute Neutrophil Count 4.9 X10^3/uL (2.0-7.7); Basophil# 0.04 X10^3/uL; Basophil% 0.4 % (0-1); Color, Urine Yellow (Yellow); Eosinophil# 0.34 X10^3/uL; Eosinophils% 3.7 % (0-5); Glucose, Dipstick Normal (Normal); Hematocrit 46.4 % (40-54); Hemoglobin 15.2 g/dL (13.0-16.5); Ketone-Dipstick Negative (Negative); Leukocyte Esterase-Dipstick Negative /ul (Negative); Lymphocyte # 3.25 X10^3/ul (0.83-4.51); Lymphocyte % 35.5 % (19-41); Mean Corp Hgb Conc 32.8 g/dL (32-36); Mean Corpuscular Hgb 31.3 pg (27.0-32.0); Mean Corpuscular Volume 95.7 fL (80-94); Mean Platelet Vol. 8.6 fl (6.2-12.0); Monocyte# 0.63 X10^3/uL; Monocyte% 6.9 % (0-10); NRBC Flagged by Analyzer 0 % (0-5); Neutrophil # 4.87 X10^3/uL (2.7-7.7); Neutrophil % 53.2 % (47-70); Nitrite-Dipstick Negative (Negative); Occult Blood-Urine 10 /ul (Negative); Platelet Count 248 K/mm3 (150-450); Protein-Dipstick Negative (Negative); RBC Distribution Width CV 13.2 % (11.6-14.6); RBC Distribution Width SD 46.4 fl (35.1-43.9); Red Blood Count 4.85 M/mm3 (4.6-6.2); Specific Gravity, Urine 1.015 (1.002-1.030); Urine Bilirubin Dipstick Negative (Negative); Urine Clarity Clear (Clear); Urine Urobilinogen Normal (Normal); Urine pH 6.5 (5.0 - 8.0); White Blood Count 9.2 K/mm3 (4.4-11.0)
[2023-05-22 12:26] LABS: Squamous Epithelial Cells - UA 0-5 SEEN /hpf (0-5)
[2023-05-22 12:36] LABS: Microalbumin,Random Urine 8.3 mg/L (NO RANGE EST.)
[2023-05-22 12:37] LABS: Hemoglobin A1c 6.1 % (3.8-5.6)
[2023-05-22 13:13] LABS: Vitamin D,25 Hydroxy 114.3 ng/mL
[2023-05-22 13:17] LABS: ALB/GLOB Ratio 1.1 RATIO (0.9-2.4); AST(SGOT) 20 U/L (15-37); Alanine Aminotransfer ALT/SGPT 35 U/L (16-61); Albumin, Serum 3.7 g/dL (3.2-5.0); Alkaline Phosphatase 47 U/L (45-117); Anion Gap 4 (5-15); BUN 15 mg/dL (7-18); BUN/Creat Ratio 18.9 RATIO (10-20); Calcium,Total 8.5 mg/dL (8.5-10.1); Chloride 107 mmol/L (98-107); Cholesterol 151 mg/dL (200); EST Glomerular Filtration Rate 101 mL/min (>60); Est Glom Filt Rate - Afr Amer 122 mL/min (>60); Globulin 3.3 g/dL (2.2-4.2); Glucose 124 mg/dL (74-106); High Density Lipoprotein 42 mg/dL; Potassium 4.1 mmol/L (3.5-5.1); Sodium Level 141 mmol/L (136-145); Thyroid Stim Hormone (TSH) 2.01 uIU/mL (0.358-3.74); Triglycerides 155 mg/dL; Very Low Density Lipoprotein 31 mg/dL (5-40)
== END | disposition home or self-care (01) ==
PROVIDERS: PCP Internal Medicine; Referring Provider Internal Medicine; Visit Provider Internal Medicine
DX: I10 Essential (primary) hypertension (principal); E11.9 Type 2 diabetes mellitus without complications; E55.9 Vitamin D deficiency, unspecified
CPT/HCPCS: 36415; 80053; 80061; 81001; 82043; 82306; 82570; 83036; 84443; 85025; 87086

== ENCOUNTER → 2023-12-30 | Outpatient (CLI) | payer OTHER, SELFPAY ==
[2023-12-30 13:38] LABS: Bacteria 0 SEEN /hpf (None Seen); Mucous, Urine 0 SEEN /hpf (<or=2+); Red Blood Cells-Urine 0 SEEN /hpf (0-5); Squamous Epithelial Cells - UA 0 SEEN /hpf (0-5); White Blood Cells 0 SEEN /hpf (0-5)
[2023-12-30 14:04] LABS: Hemoglobin 15.6 g/dL (13.0-16.5); Mean Corp Hgb Conc 33.9 g/dL (32-36); Mean Corpuscular Hgb 32.4 pg (27.0-32.0); Mean Corpuscular Volume 95.4 fL (80-94); Mean Platelet Vol. 8.8 fl (6.2-12.0); Platelet Count 242 K/mm3 (150-450); RBC Distribution Width CV 13.4 % (11.6-14.6); RBC Distribution Width SD 47.3 fl (35.1-43.9); Red Blood Count 4.82 M/mm3 (4.6-6.2); White Blood Count 9.7 K/mm3 (4.4-11.0)
[2023-12-30 14:06] LABS: Color, Urine Yellow (Yellow); Glucose, Dipstick Normal (Normal); Ketone-Dipstick Negative (Negative); Leukocyte Esterase-Dipstick Negative /ul (Negative); Nitrite-Dipstick Negative (Negative); Occult Blood-Urine Negative /ul (Negative); Protein-Dipstick Negative (Negative); Urine Bilirubin Dipstick Negative (Negative); Urine Clarity Clear (Clear); Urine Urobilinogen Normal (Normal)
[2023-12-30 14:13] LABS: Amorphous Sediment 2+
[2023-12-30 14:25] LABS: Vitamin D,25 Hydroxy 101.8 ng/mL
[2023-12-30 14:27] LABS: Microalbumin,Random Urine < 5.0 mg/L (NO RANGE EST.)
[2023-12-30 14:35] LABS: ALB/GLOB Ratio 1.2 RATIO (0.9-2.4); AST(SGOT) 22 U/L (15-37); Alanine Aminotransfer ALT/SGPT 39 U/L (16-61); Albumin, Serum 3.6 g/dL (3.2-5.0); Alkaline Phosphatase 42 U/L (45-117); Anion Gap 4 (5-15); BUN 11 mg/dL (7-18); BUN/Creat Ratio 12.5 RATIO (10-20); Calcium,Total 8.9 mg/dL (8.5-10.1); Chloride 105 mmol/L (98-107); Cholesterol 157 mg/dL (200); Creatinine, Serum 0.88 mg/dL (0.70-1.30); EST Glomerular Filtration Rate 90 mL/min (>60); Est Glom Filt Rate - Afr Amer 109 mL/min (>60); Globulin 3.1 g/dL (2.2-4.2); Glucose 122 mg/dL (74-106); High Density Lipoprotein 39 mg/dL; Potassium 4.3 mmol/L (3.5-5.1); Protein, Total 6.7 g/dL (6.4-8.2); Sodium Level 140 mmol/L (136-145); Triglycerides 157 mg/dL; Very Low Density Lipoprotein 31 mg/dL (5-40)
[2024-01-01 16:10] LABS: PSA, Total 0.8 ng/mL (0.0-4.0)
== END | disposition home or self-care (01) ==
LOC: LAB 13:19
PROVIDERS: PCP Internal Medicine; Referring Provider Internal Medicine; Visit Provider Internal Medicine
DX: E78.5 Hyperlipidemia, unspecified (principal); E11.9 Type 2 diabetes mellitus without complications; E55.9 Vitamin D deficiency, unspecified; Z12.5 Encounter for screening for malignant neoplasm of prostate
CPT/HCPCS: 36415; 80053; 80061; 81001; 82043; 82306; 82570; 84153; 84443; 85027

== ENCOUNTER → 2024-02-25 | Outpatient (CLI) | payer OTHER, SELFPAY ==
[2024-02-25 15:42] LABS: Absolute Lymphocyte Count 2.64 X10^3/uL (0.83-4.51); Absolute Neutrophil Count 5.6 X10^3/uL (2.0-7.7); Basophil# 0.04 X10^3/uL; Basophil% 0.4 % (0-1); Eosinophil# 0.17 X10^3/uL; Eosinophils% 1.9 % (0-5); Hematocrit 43.8 % (40-54); Hemoglobin 14.5 g/dL (13.0-16.5); Lymphocyte # 2.64 X10^3/ul (0.83-4.51); Lymphocyte % 29.5 % (19-41); Mean Corp Hgb Conc 33.1 g/dL (32-36); Mean Corpuscular Hgb 31.8 pg (27.0-32.0); Mean Corpuscular Volume 96.1 fL (80-94); Mean Platelet Vol. 8.5 fl (6.2-12.0); Monocyte# 0.46 X10^3/uL; Monocyte% 5.1 % (0-10); NRBC Flagged by Analyzer 0 % (0-5); Neutrophil # 5.61 X10^3/uL (2.7-7.7); Neutrophil % 62.9 % (47-70); Platelet Count 233 K/mm3 (150-450); RBC Distribution Width CV 13.1 % (11.6-14.6); RBC Distribution Width SD 46.5 fl (35.1-43.9); Red Blood Count 4.56 M/mm3 (4.6-6.2); White Blood Count 8.9 K/mm3 (4.4-11.0)
[2024-02-25 15:57] LABS: ALB/GLOB Ratio 1.2 RATIO (0.9-2.4); AST(SGOT) 20 U/L (15-37); Alanine Aminotransfer ALT/SGPT 36 U/L (16-61); Albumin, Serum 3.6 g/dL (3.2-5.0); Alkaline Phosphatase 51 U/L (45-117); Anion Gap 3 (5-15); BUN 15 mg/dL (7-18); BUN/Creat Ratio 16.3 RATIO (10-20); Calcium,Total 9.4 mg/dL (8.5-10.1); Chloride 110 mmol/L (98-107); Creatinine, Serum 0.92 mg/dL (0.70-1.30); EST Glomerular Filtration Rate 85 mL/min (>60); Est Glom Filt Rate - Afr Amer 103 mL/min (>60); Globulin 3.1 g/dL (2.2-4.2); Glucose 113 mg/dL (74-106); Potassium 4.1 mmol/L (3.5-5.1); Protein, Total 6.7 g/dL (6.4-8.2); Sodium Level 143 mmol/L (136-145)
[2024-03-09 10:42] LABS: Miscellaneous Lab Procedure E
== END | disposition home or self-care (01) ==
LOC: LABSPEC 15:13 → LAB 15:14
PROVIDERS: PCP Internal Medicine; Referring Provider Nurse Practitioner Family; Visit Provider Nurse Practitioner Family
DX: R19.7 Diarrhea, unspecified (principal)
CPT/HCPCS: 36415; 80053; 83630; 83993; 85025; 87177; 87209; 87493

== ENCOUNTER → 2024-03-22 | Outpatient (CLI) | payer OTHER, SELFPAY ==
[2024-03-22 14:56] LABS: Cholesterol 186 mg/dL (200); High Density Lipoprotein 43 mg/dL; Triglycerides 170 mg/dL; Very Low Density Lipoprotein 34 mg/dL (5-40)
[2024-03-22 14:58] LABS: Vitamin B12 > 2000 pg/mL (211-911)
== END | disposition home or self-care (01) ==
LOC: LAB 13:37
PROVIDERS: PCP Internal Medicine; Referring Provider Internal Medicine; Visit Provider Internal Medicine
DX: E78.5 Hyperlipidemia, unspecified (principal); D75.89 Other specified diseases of blood and blood-forming organs
CPT/HCPCS: 36415; 80061; 82607

== ENCOUNTER → 2024-11-04 | Outpatient (CLI) | payer OTHER, SELFPAY ==
[2024-11-04 12:08] LABS: Bacteria 0 SEEN /hpf (None Seen); Mucous, Urine 0 SEEN /hpf (<or=2+); Squamous Epithelial Cells - UA 0 SEEN /hpf (0-5); White Blood Cells 0 SEEN /hpf (0-5)
[2024-11-04 12:36] LABS: Color, Urine Yellow (Yellow); Glucose, Dipstick Normal (Normal); Ketone-Dipstick Negative (Negative); Leukocyte Esterase-Dipstick Negative /ul (Negative); Nitrite-Dipstick Negative (Negative); Occult Blood-Urine 10 /ul (Negative); Protein-Dipstick Negative (Negative); Specific Gravity, Urine 1.015 (1.002-1.030); Urine Bilirubin Dipstick Negative (Negative); Urine Clarity Clear (Clear); Urine Urobilinogen Normal (Normal)
[2024-11-04 12:43] LABS: Absolute Lymphocyte Count 1.95 X10^3/uL (0.83-4.51); Absolute Neutrophil Count 5.6 X10^3/uL (2.0-7.7); Basophil# 0.05 X10^3/uL; Basophil% 0.6 % (0-1); Eosinophil# 0.19 X10^3/uL; Eosinophils% 2.3 % (0-5); Hematocrit 44.1 % (40-54); Hemoglobin 15.3 g/dL (13.0-16.5); Lymphocyte # 1.95 X10^3/ul (0.83-4.51); Lymphocyte % 23.6 % (19-41); Mean Corp Hgb Conc 34.7 g/dL (32-36); Mean Corpuscular Hgb 32.6 pg (27.0-32.0); Mean Platelet Vol. 9.3 fl (6.2-12.0); Monocyte# 0.51 X10^3/uL; Monocyte% 6.2 % (0-10); NRBC Flagged by Analyzer 0 % (0-5); Neutrophil # 5.55 X10^3/uL (2.7-7.7); Neutrophil % 67.1 % (47-70); Platelet Count 238 K/mm3 (150-450); RBC Distribution Width CV 13.9 % (11.6-14.6); RBC Distribution Width SD 47.7 fl (35.1-43.9); Red Blood Count 4.69 M/mm3 (4.6-6.2); White Blood Count 8.3 K/mm3 (4.4-11.0)
[2024-11-04 12:51] LABS: Red Blood Cells-Urine 0-5 SEEN /hpf (0-5)
[2024-11-04 13:33] LABS: Microalbumin,Random Urine < 12.0 mg/L (NO RANGE EST.); Microalbumin:Creatinine Ratio UNABLE TO CALCULATE mg/g CRE
[2024-11-04 15:45] LABS: ALB/GLOB Ratio 1.8 RATIO (0.9-2.4); AST(SGOT) 27 U/L (<=37); Alanine Aminotransfer ALT/SGPT 30 U/L (<=46); Albumin, Serum 4.2 g/dL (3.4-4.8); Alkaline Phosphatase 45 U/L (40-129); Anion Gap 11 (5-15); BUN 15 mg/dL (4-19); BUN/Creat Ratio 19.2 RATIO (10-20); Calcium,Total 9.2 mg/dL (7.6-11.0); Carbon Dioxide 26.2 mmol/L (21.0-32.0); Chloride 105 mmol/L (98-108); Cholesterol 143 mg/dL (<=200); Creatinine, Serum 0.77 mg/dL (0.70-1.20); EST Glomerular Filtration Rate 93 (>60); Globulin 2.3 g/dL (2.2-4.2); Glucose 125 mg/dL (70-99); High Density Lipoprotein 43 mg/dL; Low Density Lipoprotein Calc. 83 mg/dL; Protein, Total 6.5 g/dL (5.9-8.4); Sodium Level 142 mmol/L (133-145); Triglycerides 88 mg/dL; Very Low Density Lipoprotein 18 mg/dL (5-40); cholesterol:hdl ratio screen 3.36
== END | disposition home or self-care (01) ==
LOC: LAB 11:59
PROVIDERS: PCP Internal Medicine; Referring Provider Internal Medicine; Visit Provider Internal Medicine
DX: E11.9 Type 2 diabetes mellitus without complications (principal); E55.9 Vitamin D deficiency, unspecified; E78.5 Hyperlipidemia, unspecified
CPT/HCPCS: 36415; 80053; 80061; 81001; 82043; 82306; 82570; 84443; 85025

== ENCOUNTER → 2024-11-30 | Outpatient (CLI) | payer OTHER, SELFPAY ==
--- NOTE | 2024-11-30 18:37 | CT_ITS ---
PROCEDURE: LOW DOSE CT LUNG SCREENING 11/30/2024 REASON FOR EXAM: SMOKER TECHNIQUE: LOW DOSE CT LUNG SCREENING Coronal and Sagittal reconstruction series were provided. One or more dose reduction techniques were used (e.g., Automated exposure control, adjustment of the mA and/or kV according to patient size, use of iterative reconstruction technique). REFERENCE LINK: [facility] Lung-RADS RADIATION DOSE SUMMARY: CTDlvol: 3 mGy DLP: 117 mGycm COMPARISON: No FINDINGS: Central airways are patent. Mild bronchial wall thickening. Moderate emphysema. Small apical scarring. Slight dependent atelectasis. No consolidation, effusion, or pneumothorax. On the left, series 2, image 154, 6 mm pleural-based noncalcified lower lobe nodular density. On the right, calcified lower lobe nodule. Series 2, image 47, 4 mm noncalcified apical nodular, favoring nodular scarring. Unremarkable base of neck and axilla. Thoracic spine degeneration. Normal esophagus. Normal heart size. No acute vascular pathology. No acute chest wall findings. Diverticulosis. No acute upper abdominal findings. CT/Low Dose CT Lung Screening IMPRESSION: Bilateral noncalcified lung nodules. Lung-RADS Category: 3 Other Significant Findings: Reading Location: [facility]
--- NOTE | 2024-11-30 18:37 | CT_ITS ---
PROCEDURE: LOW DOSE CT LUNG SCREENING 11/30/2024 REASON FOR EXAM: SMOKER TECHNIQUE: LOW DOSE CT LUNG SCREENING Coronal and Sagittal reconstruction series were provided. One or more dose reduction techniques were used (e.g., Automated exposure control, adjustment of the mA and/or kV according to patient size, use of iterative reconstruction technique). REFERENCE LINK: [email or web address] Lung-RADS RADIATION DOSE SUMMARY: CTDlvol: 3 mGy DLP: 117 mGycm COMPARISON: No FINDINGS: Central airways are patent. Mild bronchial wall thickening. Moderate emphysema. Small apical scarring. Slight dependent atelectasis. No consolidation, effusion, or pneumothorax. On the left, series 2, image 154, 6 mm pleural-based noncalcified lower lobe nodular density. On the right, calcified lower lobe nodule. Series 2, image 47, 4 mm noncalcified apical nodular, favoring nodular scarring. Unremarkable base of neck and axilla. Thoracic spine degeneration. Normal esophagus. Normal heart size. No acute vascular pathology. No acute chest wall findings. Diverticulosis. No acute upper abdominal findings. CT/Low Dose CT Lung Screening IMPRESSION: Bilateral noncalcified lung nodules. Lung-RADS Category: 3 Other Significant Findings: Reading Location: [facility]
== END | disposition home or self-care (01) ==
PROVIDERS: PCP Internal Medicine; Referring Provider Internal Medicine; Visit Provider Internal Medicine
DX: Z12.2 Encounter for screening for malignant neoplasm of respiratory organs (principal); R91.8 Other nonspecific abnormal finding of lung field; F17.200 Nicotine dependence, unspecified, uncomplicated
CPT/HCPCS: 71271

== ENCOUNTER 2024-12-15 12:19 | Outpatient (CLI) | payer OTHER, SELFPAY ==
--- OUTSIDE RECORDS SUMMARY | 2024-12-06 21:27 | XMS RPT_ITS | CCD ---
Author Organization [facility] Care Team Providers Care Publicity Expert Name Role Phone Antonia Jeffers Unavailable Cyrus Miramontes Unavailable Dov Ace Unavailable Osmani Olivo Unavailable Reji Patel Unavailable Mi Burrell Unavailable Carol, Antonette Unavailable Unavailable Messenger, Verna Unavailable Unavailable Unavailable Unavailable Jennifer Pina Unavailable Unavailable Antonia Jeffers Unavailable Cyrus Miramontes Unavailable Dov Ace Unavailable Osmani Olivo Unavailable Reji Patle Unavailable Mi Burrell Unavailable Gravius, Antonette Unavailable Unavailable Messenger, Verna Unavailable Unavailable Unavailable Unavailable Gravius, Antonette Unavailable Unavailable Messenger, Verna Unavailable Unavailable Unavailable Unavailable Michelet Oropeza Unavailable Toya Heart Unavailable Unavailable Matthieu Hanson Unavailable Unavailable Unavailable Primary Care Provider Unavailabl e Michelet Oropeza Unavailable Antonia Jeffers DO Unavailable Michelet Oropeza MD Unavailable Dr. Cyrus Miramontes Unavailable Dr. Dov Ace Unavailable Osmani Olivo MD Unavailable Dr. Reji Patel Unavailable Mi Burrell MD Unavailable Gravius ELECTRICAL ENGINEERING DRAFTING OFFICER, Antonette Unavailable Unavailable Cross PLUG MACHINE OPERATOR, Toya Unavailable Unavailable Valentin PLUG MACHINE OPERATOR, Matthieu Unavailable Unavailable Unavailable Unavailable Rancho Leann Ashlyn Unavailable Patrice DOJanisAntonia Unavailable Chava PLUG MACHINE OPERATOR, Esmer Unavailable Unavailable Patrice DOJanisAntonia Unavailable Johnna BURGOS, Michelet Gomez Unavailable Dr. Cyrus Miramontes Unavailable Dr. Dov Ace Unavailable HornLeann Ashlyn Unavailable Jovana OGLDBERG MD, Osmani Nuno Unavailable Dr. Reji Patel Unavailable Mi Burrell MD Unavailable Chava PLUG MACHINE OPERATOR, Esmer Unavailable Unavailable Gravius ELECTRICAL ENGINEERING DRAFTING OFFICER, Antonette Unavailable Unavailable Cross PLUG MACHINE OPERATOR, Toya Unavailable Unavailable Valentin PLUG MACHINE OPERATOR, Matthieu Unavailable Unavailable Unavailable Unavailable Antonia Jeffers DO Unavailable Maryjo Tsang MA Unavailable Unavailable Antonia Jeffers DO Primary Care Provider [facility], Kayela Unavailable Unavailable ANTONIA JEFFERS Primary Care Unavailab angel luis Mckeon MD, Dr. Kirit Roth Unavailable [facility], Alexa Unavailable Unavailable Antonia Jeffers DO Attending Unavailable Mi Burrell MD Referring Unavailable Antonia Jeffers DO Consulting Unavailable Dennehotso PLUG MACHINE OPERATOR, Jorden Unavailable Unavailable Josh PLUG MACHINE OPERATOR, LIUDMILA Unavailable Unavailable Patrice MEJIA, Dr. Knight Primary Care Provider Dr. Antonia Jeffers DO Attending Provider Patrice MEIJA, Dr. Knight Referring Provider Antonia Jeffers Primary Care Unavailable Patrice, Antonia Attending Unavailable Patrice, Antonia Referring Unavailable Patrice, Antonia Primary Care Unavailable Patrice, Antonia Attending Unavailable Patrice, Antonia Referring Unavailable Patrice, Antonia Primary Care Unavailable Patrice, Antonia Attending Unavailable Patrice, Antonia Referring Unavailable Patrice, Antonia Primary Care Unavailable Laura Schwartz Attending Unavailable EfrenChloeyn Referring Unavailable Patrice, Antonia Referring Unavailable Patrice, Antonia Primary Care Unavailable Patrice, Antonia Attending Unavailable Allergies Allergy Classification Reported Allergen(s) Allergy Type Date of Onset Reaction(s) Facility Dust (4 sources) Dust; Translations: [Dust] Substance [facility]ergy [facility] Work Phone: Pollen (4 sources) Pollen; Translations: [Pollens] Substance Allergy [facility]; [facility] Work Phone: (20 sources) Dust; Translations: [Dust] allergy to substance [facility] Work Phone: (20 sources) Pollen; Translations: [Pollens] allergy to substance [facility] Work Phone: (1 source) Tree and shrub pollen Drug allergy (disorder) 1 [facility] Medications Current Medications Medication Drug Class(es) Dates Sig (Normalized) Sig (Original) calcium ascorbate 500 mg oral tablet (5 sources) Start: 02-09-2020 take 1 tablet by mouth once daily Ascorbate Calcium (Vitamin C) 500 mg tablet Active 500 mg PO DAILY February 09, 2020 12:00am calcium carbonate 1250 mg oral tablet (14 sources) Start: 01-04-2021 take 1 tablet by mouth once daily Calcium Carbonate (Calcium 500) 500 mg calcium (1,250 mg) tablet Active 500 mg PO DAILY January 04, 2021 12:00am End: 05-09-2008 cholecalciferol 0.01 mg oral capsule (5 sources) Vitamin D Start: 02-09-2020 take 1 capsule by mouth once daily Cholecalciferol (Vitamin D3) 10 mcg (400 unit) capsule Active 10 ug PO DAILY February 09, 2020 12:00am Justxayhz-Qivtebgi-Ixa b-Hb112 (Bio-Immunex) 500 mg capsule (5 sources) Start: 02-09-2020 take 1 capsule by mouth once daily Ccuqtnxip-Zzyvofvq-Nra b-Hb112 (Bio-Immunex) 500 mg capsule Active 1 CAP PO daily February 09, 2020 10:45am Start: 02-09-2020 take 1 capsule by mo uth once daily Jmdbmdoqa-Qgtzchpt-Whxn-Hb112 (Bio-Immun ex) 500 mg capsule Active 1 NMA PO daily February 09, 2020 12:00am Start: 02-09-2020 take 1 capsule by mo uth once daily Pvtwomkyb-Odieptec-Unyc-Hb112 (Bio-Immun ex) 500 mg capsule Active 1 CAP PO daily February 08, 2020 11:00pm Start: 02-09-2020 take 1 capsule by mo uth once daily Ofcquddio-Fxlfqbgf-Fqiq-Hb112 (Bio-Immun ex) 500 mg capsule Active 1 CAP PO daily February 09, 2020 12:00am docusate sodium 100 mg oral capsule (2 sources) Start: 03-29-2019 take 1 capsule by mouth twice daily docusate sodium (COLACE, DULCOLAX) 100 MG CAPS Take 100 mg by mouth 2 times daily 0 03/31/2019 Active glucagon (rdna) 1 mg injection (1 source) Antihypoglycemic Agent Start: 03-29-2019 take 1 mL intravenous route every hour 1 mg, Intramuscular, PRN, Low blood sugar, Blood glucose less than 70 mg/dL and patient NOT ALERT or NPO and does not have IV access., Starting Thu03/29/19 at 0105 After administration, attempt intravenous access and start D5W at 100 mL/hr. Repeat blood glucose in 15 minutes x2 and notify provider. glucose 0.4 mg/mg oral gel (3 sources) Start: 03-29-2019 15 g, Oral, PRN, Low blood sugar, Starting Thu03/29/19 at 0105 If blood glucose less than 50 mg/dL and patient ALERT and TOLERATING PO, give 2 tubes glucose gel. If blood glucose less than 70 mg/dL and patient ALERT and TOLERATING PO, give 1 tube glucose gel. Repea t blood glucose in 15 minutes. If blood glucose is less than 70 mg/dL, repeat treatment and recheck blood glucose in 15 minutes x2 and notify provider. Start: 03-29-2019 12.5 g, Intrav enous, PRN, Low blood sugar, Blood glucose less than 70 mg/dL and patient NOT ALERT or NPO., Starting Thu03/29/19 at 0105 If patient does not respond within 5 minutes, repeat dose x1. Start D5W at 100 mL/hour until ordering provider can be reached. Repeat blood glucose in 15 minutes. If blood glucose is less than 70 mg/dL, repeat treatment and recheck blood glucose in 15 minutes x2. If using Glucostabilizer, dose as instructed per system. Start: 03-29-2019 100 mL/hr, Int ravenous, at 100 mL/hr, PRN, Low blood sugar, Starting Thu03/29/19 at 0105 Start infusion following administration of dextrose 50% or glucagon. insulin lispro 100 unt/ml injectable solution (2 sources) Insulin Analog Start: 03-30-2019 insulin lispro (HUMALOG) injection vial 0-6 Units Start: 03-29-2019 End: 03-29-2019 0-6 Units, Subcutaneous, FILEMON RY 6 HOURS, First dose on Thu03/29/19 at 0130 Corrective Low Dose Algorithm Glucose: Dose: 70- 139 No Insulin 140-199 1 Unit 200-249 2 Units 250-299 3 Units 300- 349 4 Units 350-399 5 Units Over 399 6 Units linagliptin 5 mg oral tablet (1 source) Dipeptidyl Peptidase 4 Inhibitor Start: 03-31-2019 linagliptin (TRADJENTA) tablet 5 mg lisinopril 20 mg oral tablet (20 sources) Angiotensin Converting Enzyme Inhibitor Start: 12-30-2019 take 1 tablet by mouth twice daily Lisinopril 20 mg tablet Active 20 mg PO TWICE A DAY February 09, 2020 10:32am BP Start: 08-04-2019 take 1 tablet by minal th twice daily Prinivil 20 MG Oral Tablet 1 Tablet bid for 0 days Quantity: 60 {Tablet} Refills: 3 Ordered: 04-Aug-2019 Antonia Jeffers DO, DO, Kathleen Start : 04-Aug-2019 Active Start: 03-28-2019 End: 02-09-2020 Lisinopril 20 MG tablet Disc ontinued 1 {tbl} PO DAILY March 28, 2019 1:00am February 09, 2020 10:35am BP Start: 12-07-2018 take 1 tablet by minal th twice daily lisinopril (PRINIVIL;ZESTRIL) 20 MG tablet Take 1 tablet by mouth 2 times daily 30 tablet 0 03/31/2019 Active Start: 08-30-2018 take 1 tablet by minal th twice daily Prinivil 20 MG Oral Tablet 1 Tablet bid for 0 days Quantity: 60 {Tablet} Refills: 3 Ordered: 30-Aug-2018 Antonette Medina Start : 30-Aug-2018 Active Start: 05-04-2018 take 1 tablet by minal th twice daily Prinivil 20 MG Oral Tablet 1 Tablet bid for 0 days Quantity: 60 {Tablet} Refills: 3 Ordered: 04-May-2018 Antonia Jeffers DO, DO, Kathleen Start : 04-May-2018 Active End: 03-31-2019 LISINOPRIL PO Take by mouth 2 times daily 0 03/31/2019 Discontinued (Stop Taking at Discharge) Comment on above: Take 20 mg by mouth twice daily. Melatonin (1 source) Start: 9 melatonin ER tablet 2 mg polyethylene glycol 3350 [id number] mg powder for oral solution (2 sources) Osmotic Laxative Start: 9 End: 9 take 17 g by mouth once daily polyethylene glycol (GLYCOLAX) packet Take 17 g by mouth daily 527 g 1 04/01/2019 05/01/2019 Active pravastatin sodium 40 mg oral tablet (20 sources) HMG-CoA Reductase Inhibitor Start: 0 take 1 tablet by mouth once daily Pravastatin 40 mg tablet Active 40 mg PO DAILY February 09, 2020 12:00am Start: 12-09-2019 take 1 tablet by minal th once daily Pravachol 40 MG Oral Tablet 1 Tablet daily for 0 days Quantity: 30 {Tablet} Refills: 3 Ordered: 09-Dec-2019 Areli Najera CNP Start : 09-Dec-2019 Active Start: 03-31-2019 End: 02-09-2020 take 10 mg by mouth at bedtime Pravastatin 20 MG table t Discontinued 10 mg PO AT BEDTIME March 31, 2019 1:00am February 09, 2020 9:55am Check with primary doctor Start: 03-31-2019 End: 02-09-2020 take 10 mg by mouth at bedtime Pravastatin Discontinue d 10 MG PO AT BEDTIME March 31, 2019 12:00am February 09, 2020 8:55am Start: 03-29-2019 pravastatin (P RAVACHOL) 10 mg tablet Take 10 mg by mouth. 0 03/31/2019 Active Start: 08-30-2018 take 1 tablet by minal th once daily Pravachol 40 MG Oral Tablet 1 Tablet daily for 0 days Quantity: 30 {Tablet} Refills: 3 Ordered: 30-Aug-2018 Antonette Medina CMA Start : 30-Aug-2018 Active Start: 05-04-2018 take 1 tablet by minal th once daily Pravachol 40 MG Oral Tablet 1 Tablet daily for 0 days Quantity: 30 {Tablet} Refills: 3 Ordered: 04-May-2018 Antonia Jeffers DO, DO, Kathleen Start : 04-May-2018 Active End: 03-31-2019 PRAVASTATIN SODIUM PO Take b y mouth 0 03/31/2019 Discontinued (Stop Taking at Discharge) Comment on above: Take 10 mg by mouth. 72 hr scopolamine 0.0139 mg/hr transdermal system (1 source) Anticholinergic Start: 9 scopolamine (TRANSDERM-SCOP) transdermal patch 1 patch sennosides, skilled nursing 8.6 mg oral tablet (2 sources) Start: 9 End: 9 take 1 tablet by mouth once daily senna (SENOKOT) 8.6 MG tablet Take 1 tablet by mouth nightly 30 tablet 0 03/31/2019 04/30/2019 Active 3 ml sodium chloride 9 mg/ml injection (3 sources) Start: 9 10 mL, Intravenous, EVERY 12 HOURS SCHEDULED (2 times per day), First dose on Thu03/29/19 at 0900 Start: 03-29-2019 take 10 mL intraveno us route once as needed 10 mL, Intravenous, PRN, Line Care, After every IV line use, Starting Thu03/29/19 at 0105 Start: 03-28-2019 End: 03-30-2019 0.9 % sodium chloride infusi on Completed/Discontinued Medications Medication Drug Class(es) Dates Sig (Normalized) Sig (Original) acetaminophen 500 mg oral tablet (7 sources) Start: 03-31-2019 End: 01-04-2021 Acetaminophen 500 MG tablet Discontinued 2 {tbl} PO THREE TIMES A DAY as needed for pain March 31, 2019 1:00am January 04, 2021 12:43pm Start: 03-29-2019 acetaminophen (TYLENOL) tablet 1,000 mg Start: 03-29-2019 End: 03-29-2019 take 650 mg by mouth every four hours as needed for pain, then take 4000 mg by mouth every twenty-four hours as needed for pain 650 mg, Oral, EVERY 4 HOURS PRN, Pain Mild (1-3), Starting Thu03/29/19 at 0105 Maximum dose of acetaminophen is 4000 mg from all sources in 24 hours. [id number] 200 actuat albuter ol 0.09 mg/actuat metered dose inhaler (20 sources) beta2-Adrenergic Agonist Start: 04-22-2016 End: 02-02-2020 Start: 04-22-2016 End: 02-02-2020 take 2 puff(s) by inhalation three times daily ProAir HFA 108 (90 Base) MCG/ACT Inhalation Aerosol Solution 2 (two) Puff Puff tid for 0 days Quantity: 1 {Inhaler} Refills: 0 Ordered: 02-Feb-2020 Toya Heart LPN Start : 22-Apr-2016 End : 02-Feb-2020 Inactive Start: 04-22-2016 End: 02-02-2020 take 2 puff(s) by inhalation three times daily ProAir HFA 108 (90 Base) MCG/ACT Inhalation Aerosol Solution 2 (two) Puff Puff tid for 0 days Quantity: 1 {Inhaler} Refills: 0 Ordered: 02-Feb-2020 Toya Heart LPN Start : 22-Apr-2016 End : 02-Feb-2020 Inactive Start: 04-22-2016 ProAir HFA 108 (90 Base) MCG/ACT Inhalation Aerosol Solution 2 (two) Puff Puff tid for 0 days Quantity: 1 {Inhaler} Refills: 0 Ordered: 11-Jun-2016 Alexa Rivera Start : 22-Apr-2016 Active amoxicillin 875 mg / clavula viraj 125 mg oral tablet (20 sources) Penicillin-class Antibacterial Start: 10-20-2011 End: 10-30-2011 Start: 10-20-2011 End: 10-30-2011 take 1 tablet by mouth twice daily AUGMENTIN, 875-125MG (Oral Tablet) 1 Tablet bid for 10 days Quantity: 20 {Tablet} Refills: 0 Ordered: 20-Oct-2011 Mi Burrell MD Start : 20-Oct-2011 End : 30-Oct-2011 Inactive apixaban 2.5 mg oral tablet (5 sources) Factor Xa Inhibitor Start: 04-13-2019 End: 02-09-2020 take 1 tablet by mouth twice daily Apixaban 2.5 MG tablet Discontinued 2.5 mg PO TWICE A DAY 28 0 April 13, 2019 1:00am February 09, 2020 10:31am ascorbic acid 1000 mg oral tablet (20 sources) Vitamin C End: 11-17-2006 aspirin 81 mg chewable tablet (20 sources) Platelet Aggregation Inhibitor, Nonsteroidal Anti-inflammatory Drug atorvastatin 10 mg oral tablet (20 sources) HMG-CoA Reductase Inhibitor Start: 11-10-2011 End: 11-10-2011 azithromycin 250 mg oral tablet (20 sources) Macrolide Antimicrobial Start: 05-24-2021 End: 08-07-2021 Start: 07-10-2017 End: 07-17-2017 Start: 04-22-2016 End: 06-11-2016 Zithromax Z-Oleksandr 250 MG Oral Tablet 1 (one) Tablet Tablet TAD for 0 days Quantity: 1 {Package} Refills: 0 Ordered: 11-Jun-2016 Alexa Rivera CMA Start : 22-Apr-2016 End : 11-Jun-2016 Inactive Comment on above: dispense one package bacitracin 0.5 unt/mg / polymyxin b 10 unt/mg topical ointment (7 sources) Polymyxin-class Antibacterial Start: 03-31-2019 End: 04-10-2019 bacitracin-polymyxin b (POLYSPORIN) [id number] UNIT/GM ophthalmic ointment Every 12 hours. 0 03/31/2019 04/10/2019 Active Start: 03-31-2019 End: 02-09-2020 Bacitracin-Polymyxin B 1 CYRIL LIC ointment Discontinued 1 NMA TOPICAL TWICE A DAY March 31, 2019 1:00am February 09, 2020 10:31am laceration scaple Start: 03-31-2019 End: 02-09-2020 Bacitracin-Polymyxin B Disco ntinued 1 APPLIC TOPICAL TWICE A DAY March 31, 2019 12:00am February 09, 2020 9:31am scaple Start: 03-28-2019 bacitracin-radha ymyxin b (POLYSPORIN) ophthalmic ointment benzonatate 100 mg oral capsule (20 sources) Non-narcotic Antitussive Start: 04-22-2016 End: 06-11-2016 biotin 1 mg oral capsule (14 sources) Start: 02-09-2020 End: 01-04-2021 take 1 capsule by mouth once daily Biotin 1 mg capsule Discontinued 1 mg PO DAILY February 09, 2020 12:00am January 04, 2021 12:43pm Biotin 100 MG/GM Oral Powder (20 sources) Biotin 100 MG/GM Oral Powder 1 daily (100 MG/GM) Inactive Biotin 100 MG/GM Oral Powder 1 daily (100 MG/GM) Active Calcium (20 sources) Phosphate Binder, Calcium End: 05-09-2008 End: 05-09-2008 take 1 tablet by mouth once daily CALCIUM, 500MG (Oral Tablet) 1 qd for 0 days Refills: 0 Ordered: 09-May-2008 LIUDMILA Moreno LPN End : 09-May-2008 Inactive End: 05-09-2008 take 1 tablet by mouth once daily CALCIUM, 500MG (Oral Tablet) 1 qd for 0 days Refills: 0 Ordered: 09-May-2008 LIUDMILA Moreno End : 09-May-2008 Inactive calcium citrate 1190 mg / ch olecalciferol 0.005 mg oral tablet (20 sources) Vitamin D Start: 05-15-2014 Start: 05-15-2014 take 2 tablets by mo [facility] once daily CITRACAL/VITAMIN D, [id number] (Oral Tablet) 2 (two) Tablet Daily for 90 days Refills: 0 Ordered: 15-May-2014 Areli Najera Start : 15-May-2014 Active calcium citrate 1190 mg / vitamin d 200 unt oral tablet (17 sources) Start: 05-15-2014 take 2 tablets by mouth once daily CITRACAL/VITAMIN D, [id number] (Oral Tablet) 2 (two) Tablet Daily for 90 days Refills: 0 Ordered: 15-May-2014 Areli Najera CNP Start : 15-May-2014 Active ceFAZolin 2000 mg injection (1 source) Cephalosporin Antibacterial Start: 03-29-2019 End: 03-30-2019 2 g, Intravenous, EVERY 8 HOURS, 2 doses, First dose on Tu03/29/19 at 2200, Last dose on Thu03/30/19 at 0600 clarithromycin 500 mg oral tablet (20 sources) Macrolide Antimicrobial Start: 07-27-2009 0.4 ml enoxaparin sodium 100 mg/ml prefilled syringe (7 sources) Low Molecular Weight Heparin Start: 03-31-2019 enoxaparin (LOVENOX) 30 MG/0.3ML injection Inject 0.3 mLs into the skin 2 times daily Please continue at facility and on discharge to home. Must be continued while he is non weightbearing to RLE 0 03/31/2019 Active Start: 03-31-2019 End: 04-13-2019 inject 40 mg by subcutaneous injection once daily Enoxaparin 40 MG/0.4 ML syringe Discontinued 40 mg SQ DAILY March 31, 2019 1:00am April 13, 2019 6:09pm Check with primary doctor Start: 03-30-2019 enoxaparin (LO VENOX) injection 30 mg famotidine 20 mg oral tablet (5 sources) Histamine-2 Receptor Antagonist Start: 03-31-2019 End: 02-09-2020 take 1 tablet by mouth twice daily Famotidine 20 MG tablet Discontinued 20 mg PO TWICE A DAY March 31, 2019 1:00am February 09, 2020 10:31am Check with primary doctor 2 ml fentaNYL 0.05 mg/ml injection (1 source) Opioid Agonist Start: 03-29-2019 End: 03-29-2019 fentaNYL (SUBLIMAZE) 100 MCG/2ML injection Fenugreek Seed Extract (3 sources) Start: 02-09-2020 End: 01-04-2021 Fenugreek Seed Extract Discontinued MG PO February 09, 2020 10:46am January 04, 2021 12:43pm Start: 02-09-2020 End: 01-04-2021 Fenugreek Seed Extract Disco ntinued MG PO February 08, 2020 11:00pm January 04, 2021 11:43am Start: 02-09-2020 End: 01-04-2021 Fenugreek Seed Extract Disco ntinued MG PO February 09, 2020 12:00am January 04, 2021 12:43pm Fenugreek Seed Extract 500 m g capsule (2 sources) Start: 02-09-2020 End: 01-04-2021 Fenugreek Seed Extract 500 m g capsule Discontinued mg PO February 09, 2020 12:00am January 04, 2021 12:43pm fenugreek seed meal (20 sources) take 1 mg by mouth once daily Fe nugreek 500 MG Oral Capsule daily (500 MG) Active fexofenadine hydrochloride 1 80 mg oral tablet (20 sources) Histamine-1 Receptor Antagonist Start: 05-30-2015 End: 07-16-2015 fluvoxaMINE maleate 50 mg or al tablet (17 sources) Serotonin Reuptake Inhibitor Start: 05-24-2021 End: 06-03-2021 Glucosamine Chondr 500 Compl ex (6 sources) Start: 05-09-2008 Start: 05-09-2008 take 2 capsules by m outh once daily GLUCOSAMINE CHONDR 500 COMPLEX (Oral Capsule) 2 (two) Capsule qd for 0 days Refills: 0 Ordered: 11-Jun-2016 Alexa Rivera Start : 09-May-2008 Active GLUCOSAMINE CHONDR 500 COMPL EX (Oral Capsule) (20 sources) Start: 05-09-2008 GLUCOSAMINE CH ONDR 500 COMPLEX (Oral Capsule) 2 (two) Capsule qd for 0 days Refills: 0 Ordered: 11-Jun-2016 Alexa Rivera CMA Start : 09-May-2008 Active Start: 05-09-2008 GLUCOSAMINE CH ONDR 500 COMPLEX (Oral Capsule) 2 (two) Capsule qd for 0 days Refills: 0 Ordered: 11-Jun-2016 Alexa Rivera Start : 09-May-2008 Active Glucosamine-Chondroitin Complx (9 sources) Start: 05-09-2008 hydroCHLOROthiazide 25 mg oral tablet (20 sources) Thiazide Diuretic Start: 12-31-2010 End: 05-20-2011 meclizine hydrochloride 12.5 mg oral tablet (5 sources) Antiemetic Start: 04-13-2019 End: 02-09-2020 take 1 tablet by mouth three times daily as needed for dizziness Meclizine 12.5 MG tablet Discontinued 12.5 mg PO 3 TIMES DAILY NEEDED as needed for Dizziness 20 0 April 13, 2019 1:00am February 09, 2020 10:32am melatonin 3 mg / vitamin b6 10 mg oral tablet (5 sources) Start: 03-31-2019 End: 01-04-2021 Melatonin-Pyrido xine Hcl (B6) 1 EACH tablet Discontinued 3 mg PO AT BEDTIME March 31, 2019 1:00am January 04, 2021 12:43pm sleep metaxalone 800 mg oral tablet (20 sources) Start: 11-10-2008 End: 12-01-2008 metFORMIN hydrochloride 500 mg oral tablet (20 sources) Biguanide Start: 02-20-2023 Start: 10-31-2022 Start: 06-06-2022 Start: 01-13-2022 take 1 tablet by minal th twice daily metFORMIN (GLUCOPHAGE) 500 mg tablet Take 500 mg by mouth twice daily. 0 03/25/2022 Active Start: 08-07-2021 take 1 tablet by minal th twice daily metFORMIN HCl 500 MG Oral Tablet 1 Tablet bid for 0 days Quantity: 60 {Tablet} Refills: 3 Ordered: 07-Aug-2021 Antonette Medina CMA Start : 07-Aug-2021 Active Start: 01-22-2021 take 1 tablet by minal twice daily metFORMIN HCl 500 MG Oral Tablet 1 Tablet bid for 0 days Quantity: 60 {Tablet} Refills: 3 Ordered: 22-Jan-2021 Antonia Jeffers DO, DO, Kathleen Start : 22-Jan-2021 Active Start: 10-22-2020 take 1 tablet by minal th twice daily metFORMIN HCl 500 MG Oral Tablet 1 Tablet bid for 0 days Quantity: 60 {Tablet} Refills: 3 Ordered: 22-Oct-2020 Antonia Jeffers DO, DO, Kathleen Start : 22-Oct-2020 Active Start: 01-06-2020 take 1 tablet by minal th twice daily Metformin 500 mg tablet Active 500 mg PO TWICE A DAY February 09, 2020 10:32am Check with primary doctor Start: 12-09-2019 take 1 tablet by minal th twice daily metFORMIN HCl 500 MG Oral Tablet 1 Tablet bid for 0 days Quantity: 60 {Tablet} Refills: 3 Ordered: 09-Dec-2019 Areli Najera CNP Start : 09-Dec-2019 Active Start: 03-28-2019 End: 02-09-2020 take 1 tablet by mouth once daily Metformin 500 MG tablet Discontinued 500 mg PO DAILY March 28, 2019 1:00am February 09, 2020 10:35am Check with primary doctor Start: 08-30-2018 take 1 tablet by minal th twice daily at mealtime metFORMIN (GLUCOPHAGE) 500 MG tablet Take 1 tablet by mouth 2 times daily (with meals) 60 tablet 3 03/31/2019 Active Start: 05-17-2018 take 1 tablet by minal th twice daily MetFORMIN HCl 500 MG Oral Tablet 1 Tablet bid for 0 days Quantity: 60 {Tablet} Refills: 3 Ordered: 17-May-2018 Antonia Jeffers DO, DO, Kathleen Start : 17-May-2018 Active Start: 01-27-2018 take 1 tablet by minal th twice daily MetFORMIN HCl 500 MG Oral Tablet 1 Tablet bid for 0 days Quantity: 60 {Tablet} Refills: 3 Ordered: 27-Jan-2018 Antonia Jeffers DO, DO, Kathleen Start : 27-Jan-2018 Active End: 03-31-2019 METFORMIN HCL PO Take by minal th 2 times daily 0 03/31/2019 Discontinued (Stop Taking at Discharge) Comment on above: Take 500 mg by mouth twice daily. 2 ml midazolam 1 mg/ml injection (1 source) Benzodiazepine Start: 03-29-2019 End: 03-29-2019 midazolam (VERSED) 2 MG/2ML injection 1 ml morphine sulfate 10 mg/ml cartridge (1 source) Opioid Agonist Start: 03-28-2019 End: 03-29-2019 morphine (PF) injection 6 mg Multi-Vitamins (15 sources) Start: 05-09-2008 End: 05-09-2008 Start: 05-09-2008 End: 05-09-2008 take 1 tablet intravenous route once daily MULTI-VITAMINS (IV Injectable) 1 tab qd for 0 days Refills: 0 Ordered: 09-May-2008 LIUDMILA Moreno Start : 09-May-2008 End : 09-May-2008 Discontinued Comments: This order discontinued per [facility]. Comment on above: This order discontinued per [facility]. MULTI-VITAMINS (IV Injectable) (20 sources) Start: 8 End: 8 inject 1 tablet intravenous route once daily MULTI-VITAMINS (IV Injectable) 1 tab qd for 0 days Refills: 0 Ordered: 09-May-2008 LIUDMILA Moreno LPN Start : 09-May-2008 End : 09-May-2008 Discontinued Comments: This order discontinued per [facility]. Start: 05-09-2008 End: 05-09-2008 inject 1 tablet intravenous route once daily MULTI-VITAMINS (IV Injectable) 1 tab qd for 0 days Refills: 0 Ordered: 09-May-2008 LIUDMILA Moreno Start : 09-May-2008 End : 09-May-2008 Discontinued Comments: This order discontinued per [facility]. Comment on above: This order discontin ued per -[facility]. Multivitamin preparation (20 sources) take 1 tablet by mouth once nga y MULTI-VITAMIN (Oral Tablet) 1 qd Inactive take 1 tablet by mouth once nga y MULTI-VITAMIN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 Bilirubin Test strip Ql (U)O rdered By: Antonia Jeffers on 11-04-2024 Bilirubin Ql (U) Negative Negative [facility] Bilirubin, totalOrdered By: Antonia Jeffers on 11-04-2024 Bilirubin [Mass/Vol] 0.30 mg/dL 0.00-1.30 [facility] CBC W/Diff, Automatedon 10-17 Absolute Lymph 1.95 X10 3/uL Normal 0.83-4.51 [facility] Comment on above: Performed By: #### L 400.0001, L502.0250, L500.4050, L506.1001, L500.4100, L100.0100, L501.9520 #### [facility] [address] [place], [place] [address]carol. [place], [place], [id number] Absolute Neut 5.6 X10 3/uL Normal 2.0-7.7 [facility] Comment on above: Performed By: #### L 400.0001, L502.0250, L500.4050, L506.1001, L500.4100, L100.0100, L501.9520 #### [facility] [address] [place], [address] Basophils/100 WBC (Bld) 0.6 % Normal 0-1 [facility] Comment on above: Performed By: #### L 400.0001, L502.0250, L500.4050, L506.1001, L500.4100, L100.0100, L501.9520 #### [facility] [address] [place], [address] Eosinophils/100 WBC (Bld) 2.3 % Normal 0-5 [facility] Comment on above: Performed By: #### L 400.0001, L502.0250, L500.4050, L506.1001, L500.4100, L100.0100, L501.9520 #### [facility] [address] [place], [address] Erythrocyte distribution width (RBC) [Ratio] 13.9 % Normal 11.6-14.6 [facility] Comment on above: Performed By: #### L 400.0001, L502.0250, L500.4050, L506.1001, L500.4100, L100.0100, L501.9520 #### [facility] [address] [place], [address] Hematocrit (Bld) [Volume fraction] 44.1 % Normal 40-54 [facility] Comment on above: Performed By: #### L 400.0001, L502.0250, L500.4050, L506.1001, L500.4100, L100.0100, L501.9520 #### [facility] [address] [place], [address] Hemoglobin (Bld) [Mass/Vol] 15.3 g/dL Normal 13.0-16.5 [facility] Comment on above: Performed By: #### L 400.0001, L502.0250, L500.4050, L506.1001, L500.4100, L100.0100, L501.9520 #### [facility] [address] [place], [address] IG% 0.200 Normal 0.0-0.9 [facility] Comment on above: Result Comment: IG% - Immature Granulocytes (promyelocytes, myelocytes and metamyelocytes) > 1% indicates that a LEFT SHIFT is Present. Performed By: #### L 400.0001, L502.0250, L500.4050, L506.1001, L500.4100, L100.0100, L501.9520 #### [facility] [address] [place], [address] Lymphocytes/100 WBC (Bld) 23.6 % Normal 19-41 [facility] Comment on above: Performed By: #### L 400.0001, L502.0250, L500.4050, L506.1001, L500.4100, L100.0100, L501.9520 #### [facility] [address] [place], [address] MCH (RBC) [Entitic mass] 32.6 pg High 27.0-32.0 [facility] Comment on above: Performed By: #### L 400.0001, L502.0250, L500.4050, L506.1001, L500.4100, L100.0100, L501.9520 #### [facility] [address] [place], [address] MCHC (RBC) [Mass/Vol] 34.7 g/dL Normal 32-36 [facility] Comment on above: Performed By: #### L 400.0001, L502.0250, L500.4050, L506.1001, L500.4100, L100.0100, L501.9520 #### [facility] [address] [place], [address] MCV (RBC) [Entitic vol] 94.0 fL Normal 80-94 [facility] Comment on above: Performed By: #### L 400.0001, L502.0250, L500.4050, L506.1001, L500.4100, L100.0100, L501.9520 #### [facility] [address] [place], [address] Monocytes/100 WBC (Bld) 6.2 % Normal 0-10 [facility] Comment on above: Performed By: #### L 400.0001, L502.0250, L500.4050, L506.1001, L500.4100, L100.0100, L501.9520 #### [facility] [address] [place], [address] Neutrophils/100 WBC (Bld) 67.1 % Normal 47-70 [facility] Comment on above: Performed By: #### L 400.0001, L502.0250, L500.4050, L506.1001, L500.4100, L100.0100, L501.9520 #### [facility] [address] [place], [address] Nucleated RBC (Bld) [#/Vol] 0 10*3/uL Normal 0-5 [facility] Comment on above: Performed By: #### L 400.0001, L502.0250, L500.4050, L506.1001, L500.4100, L100.0100, L501.9520 #### [facility] [address] [place], [address] Platelet mean volume (Bld) [Entitic vol] 9.3 fL Normal 6.2-12.0 [facility] Comment on above: Performed By: #### L 400.0001, L502.0250, L500.4050, L506.1001, L500.4100, L100.0100, L501.9520 #### [facility] [address] [place], [address] Platelets (Bld) [#/Vol] 238 10*3/uL Normal 150-450 [facility] Comment on above: Performed By: #### L 400.0001, L502.0250, L500.4050, L506.1001, L500.4100, L100.0100, L501.9520 #### [facility] [address] [place], [address] RBC (Bld) [#/Vol] 4.69 10*6/uL Normal 4.6-6.2 [facility] Comment on above: Performed By: #### L 400.0001, L502.0250, L500.4050, L506.1001, L500.4100, L100.0100, L501.9520 #### [facility] [address] [place], [address] RDW SD 47.7 fl High 35.1-43.9 [facility] Comment on above: Performed By: #### L 400.0001, L502.0250, L500.4050, L506.1001, L500.4100, L100.0100, L501.9520 #### [facility] [address] [place], [address] WBC (Bld) [#/Vol] 8.3 10*3/uL Normal 4.4-11.0 [facility] Comment on above: Performed By: #### L 400.0001, L502.0250, L500.4050, L506.1001, L500.4100, L100.0100, L501.9520 #### [facility] [address] [place], [address] Calculated very low density lipoprotein (VLDL) cholesterol measurementOrdered By: Antonia Jeffers on 11-04-2024 Calculated very low density lipoprotein (VLDL) cholesterol measurement 18 mg/dL 5-40 [facility] Carbon dioxide, total [Moles /volume] in Central venous bloodOrdered By: Antonia Jeffers on 11-04-2024 CO2 [Moles/Vol] 26.2 mmol/L 21.0-32.0 [facility] Chloride assayOrdered By: Augusto Jeffers on 11-04-2024 Chloride [Moles/Vol] 105 mmol/L 98-108 [facility] Comprehensive Metabolic Prof ilon 11-04-2024 Albumin [Mass/Vol] 4.2 g/dL Normal 3.4-4.8 [facility] Comment on above: Performed By: #### L 400.0001, L502.0250, L500.4050, L506.1001, L500.4100, L100.0100, L501.9520 #### [facility] [address] [facility] [place], [address] Albumin/Globulin [Mass ratio] 1.8 {ratio} Normal 0.9-2.4 [facility] Comment on above: Performed By: #### L 400.0001, L502.0250, L500.4050, L506.1001, L500.4100, L100.0100, L501.9520 #### [facility] [address] [place], [address] ALK PHOS 45 U/L Normal 40-129 [facility] Comment on above: Performed By: #### L 400.0001, L502.0250, L500.4050, L506.1001, L500.4100, L100.0100, L501.9520 #### [facility] [address] [place], [address] ALT [Catalytic activity/Vol] 30 U/L Normal <=46 [facility] Comment on above: Performed By: #### L 400.0001, L502.0250, L500.4050, L506.1001, L500.4100, L100.0100, L501.9520 #### [facility] [address] [place], [address] AST [Catalytic activity/Vol] 27 U/L Normal <=37 [facility] Comment on above: Performed By: #### L 400.0001, L502.0250, L500.4050, L506.1001, L500.4100, L100.0100, L501.9520 #### [facility] [address] [place], [address] Bilirubin [Mass/Vol] 0.30 mg/dL Normal 0.00-1.30 [facility] Comment on above: Performed By: #### L 400.0001, L502.0250, L500.4050, L506.1001, L500.4100, L100.0100, L501.9520 #### [facility] [address] [place], [address] BUN/CRE 19.2 RATIO Normal 10-20 [facility] Comment on above: Performed By: #### L 400.0001, L502.0250, L500.4050, L506.1001, L500.4100, L100.0100, L501.9520 #### [facility] [address] [place], [address] Calcium [Mass/Vol] 9.2 mg/dL Normal 7.6-11.0 [facility] Comment on above: Performed By: #### L 400.0001, L502.0250, L500.4050, L506.1001, L500.4100, L100.0100, L501.9520 #### [facility] [address] [place], [address] Chloride [Moles/Vol] 105 mmol/L Normal 98-108 [facility] Comment on above: Performed By: #### L 400.0001, L502.0250, L500.4050, L506.1001, L500.4100, L100.0100, L501.9520 #### [facility] [address] [place], [address] CO2 [Moles/Vol] 26.2 mmol/L Normal 21.0-32.0 [facility] Comment on above: Performed By: #### L 400.0001, L502.0250, L500.4050, L506.1001, L500.4100, L100.0100, L501.9520 #### [facility] [address] [place], [address] Creatinine [Mass/Vol] 0.77 mg/dL Normal 0.70-1.20 [facility] Comment on above: Performed By: #### L 400.0001, L502.0250, L500.4050, L506.1001, L500.4100, L100.0100, L501.9520 #### [facility] [address] [place], [address] GAP 11 Normal 5-15 [facility] Comment on above: Performed By: #### L 400.0001, L502.0250, L500.4050, L506.1001, L500.4100, L100.0100, L501.9520 #### [facility] [address] [place], [address] GFR/1.73 sq M.predicted among non-blacks MDRD (S/P/Bld) [Vol rate/Area] 93 mL/min/{1.73_m2} Normal >60 [facility] Comment on above: Result Comment: mL/m in/1.73m2 CKD-EPI Creatinine Equation (2020) Performed By: #### L 400.0001, L502.0250, L500.4050, L506.1001, L500.4100, L100.0100, L501.9520 #### [facility] [address] [place], [address] Globulin (S) [Mass/Vol] 2.3 g/dL Normal 2.2-4.2 [facility] Comment on above: Performed By: #### L 400.0001, L502.0250, L500.4050, L506.1001, L500.4100, L100.0100, L501.9520 #### [facility] [address] [place], [address] Glucose [Mass/Vol] 125 mg/dL High 70-99 [facility] Comment on above: Performed By: #### L 400.0001, L502.0250, L500.4050, L506.1001, L500.4100, L100.0100, L501.9520 #### [facility] [address] [place], [address] Potassium [Moles/Vol] 4.0 mmol/L Normal 3.3-5.1 [facility] Comment on above: Performed By: #### L 400.0001, L502.0250, L500.4050, L506.1001, L500.4100, L100.0100, L501.9520 #### [facility] [address] [place], [address] Sodium [Moles/Vol] 142 mmol/L Normal 133-145 [facility] Comment on above: Performed By: #### L 400.0001, L502.0250, L500.4050, L506.1001, L500.4100, L100.0100, L501.9520 #### [facility] [address] [place], [address] T PROT 6.5 g/dL Normal 5.9-8.4 [facility] Comment on above: Performed By: #### L 400.0001, L502.0250, L500.4050, L506.1001, L500.4100, L100.0100, L501.9520 #### [facility] [address] [place], [address] Urea nitrogen [Mass/Vol] 15 mg/dL Normal 4-19 [facility] Comment on above: Performed By: #### L 400.0001, L502.0250, L500.4050, L506.1001, L500.4100, L100.0100, L501.9520 #### [facility] [address] [place], [place], [address] Eosinophil percentageOrdered By: Antonia Jeffers on 11-04-2024 Eosinophils/100 WBC (Bld) 2.3 % 0-5 [facility] Erythrocyte distribution wid th ratioOrdered By: Antonia Jeffers on 11-04-2024 Erythrocyte distribution width (RBC) [Ratio] 13.9 % 11.6-14.6 [facility] Erythrocyte distribution wid th standard deviationOrdered By: Antonia Jeffers on 11-04-2024 Erythrocyte distribution width (RBC) [Ratio] 47.7 fl High 35.1-43.9 [facility] Glomerular filtration rate ( GFR) estimation/1.73 sq m using serum, plasma, or whole bOrdered By: Antonia Jeffers on 11-04-2024 GFR/1.73 sq M.predicted among non-blacks MDRD (S/P/Bld) [Vol rate/Area] 93 mL/min/{1.73_m2} >60 [facility] Comment on above: mL/min/1.73m2 CKD-EP I Creatinine Equation (2020) Hematocrit Auto (Bld) [Volum e fraction]Ordered By: Antonia Jeffers on 11-04-2024 Hematocrit (Bld) [Volume fraction] 44.1 % 40-54 [facility] Hemoglobin measurementOrdere d By: Antonia Jeffers on 11-04-2024 Hemoglobin (Bld) [Mass/Vol] 15.3 g/dL 13.0-16.5 [facility] Immature granulocytes/100 WB C Auto (Bld)Ordered By: Antonia Jeffers on 11-04-2024 Immature granulocytes/100 WBC (Bld) 0.200 % 0.0-0.9 [facility] Comment on above: IG% - Immature Granu locytes (promyelocytes, myelocytes and metamyelocytes) > 1% indicates that a LEFT SHIFT is Present. Ketones Test strip Ql (U)Ord ered By: Antonia Jeffers on 11-04-2024 Ketones Ql (U) Negative Negative [facility] LDL calc ser/plasOrdered By: Antonia Jeffers on 11-04-2024 Cholesterol in LDL [Mass/Vol] 83 mg/dL [facility] Comment on above: Ikuatfsldg=434-097 m g/dL & Higher Kcci=014 mg/dL or greater Laboratory - Chemistry and C hemistry - challengeOrdered By: Antonia Jeffers on 11-04-2024 AST [Catalytic activity/Vol] 27 U/L <38 [facility] Lipid Profileon 11-04-2024 CHOL:HDL 3.36 Normal [facility] Comment on above: Performed By: #### L 400.0001, L502.0250, L500.4050, L506.1001, L500.4100, L100.0100, L501.9520 #### [facility] [address] [place], [address] Cholesterol [Mass/Vol] 143 mg/dL Normal <=200 [facility] Comment on above: Result Comment: Chol esterol level, Desirable <200 mg/dL Borderline high cholesterol 200-239 mg/dL High cholesterol >=240 mg/dL Recommendations of the NCEP Adult Treatment Panel for the following risk-cutoff thresholds for the [place] population. Performed By: #### L 400.0001, L502.0250, L500.4050, L506.1001, L500.4100, L100.0100, L501.9520 #### [facility] [address] [place], [address] Cholesterol in HDL [Mass/Vol] 43 mg/dL Normal [facility] Comment on above: Result Comment: [place]ior onal Cholesterol Education Program (NCEP) guidelines: <40 mg/dL: Low HDL-cholesterol (major risk factor for CHD) >= 60 mg/dL: High HDL-cholesterol (negative risk factor for CHD) HDL-cholesterol is affected by a number of factors, e.g. smoking, exercise, hormones, sex and age. Performed By: #### L 400.0001, L502.0250, L500.4050, L506.1001, L500.4100, L100.0100, L501.9520 #### [facility] [address] [place], [address] Cholesterol in LDL [Mass/Vol] 83 mg/dL Normal [facility] Comment on above: Result Comment: Bord pnctjo=651-624 mg/dL Higher Mkbd=982 mg/dL or greater Performed By: #### L 400.0001, L502.0250, L500.4050, L506.1001, L500.4100, L100.0100, L501.9520 #### [facility] [address] [place], [address] Cholesterol in VLDL [Mass/Vol] 18 mg/dL Normal 5-40 [facility] Comment on above: Performed By: #### L 400.0001, L502.0250, L500.4050, L506.1001, L500.4100, L100.0100, L501.9520 #### [facility] [address] [place], [address] Triglyceride [Mass/Vol] 88 mg/dL Normal [facility] Comment on above: Result Comment: The drugs N-Acetylcysteine and Metamizole may falsely depress this assay. Normal range: <150 mg/dL Borderline High: 150-199 mg/dL High: 200-499 mg/dL Very High: >500 mg/dL Performed By: #### L 400.0001, L502.0250, L500.4050, L506.1001, L500.4100, L100.0100, L501.9520 #### [facility] [address] [place], [address] MCV (mean corpuscular volume ) determinationOrdered By: Antonia Jeffers on 11-04-2024 MCV (RBC) [Entitic vol] 94.0 fL 80-94 [facility] Mean corpuscular hemoglobin (MCH) determinationOrdered By: Antonia eJffers on 11-04-2024 MCH (RBC) [Entitic mass] 32.6 pg High 27.0-32.0 [facility] Mean corpuscular hemoglobin concentration (MCHC) determinationOrdered By: Antonia Jeffers on 11-04-2024 MCHC (RBC) [Mass/Vol] 34.7 g/dL 32-36 [facility] Mean platelet volume determi nationOrdered By: Antonia Jeffers on 11-04-2024 Platelet mean volume (Bld) [Entitic vol] 9.3 fL 6.2-12.0 [facility] Microalb:Creat Ratio,Random URon 11-04-2024 Creatinine [Mass/Vol] 72.70 mg/dL Normal 39.00-259.00 [facility] Comment on above: Performed By: #### L 400.0001, L502.0250, L500.4050, L506.1001, L500.4100, L100.0100, L501.9520 #### [facility] [address] [place], [address] MALB:CREAT UNABLE TO CALCULATE Normal [facility] Comment on above: Performed By: #### L 400.0001, L502.0250, L500.4050, L506.1001, L500.4100, L100.0100, L501.9520 #### [facility] [address] [place], [address] MICROALBUMIN,UR < 12.0 Normal NO RANGE EST. [facility] Comment on above: Performed By: #### L 400.0001, L502.0250, L500.4050, L506.1001, L500.4100, L100.0100, L501.9520 #### [facility] [place], [address] Microalbumin/creat ratio urO rdered By: Antonia Jeffers on 11-04-2024 Urine microalbumin/creatini ne ratio measurement UNABLE TO CALCULATE mg/g CRE [facility] Microscopic analysis of urin e for red blood cells (RBC)Ordered By: Antonia Jeffers on 11-04-2024 Microscopic analysis of urine for red blood cells (RBC) 0-5 SEEN /hpf 0-5 [facility] Monocyte percentageOrdered B y: Antonia Jeffers on 11-04-2024 Monocytes/100 WBC (Bld) 6.2 % 0-10 [facility] Mucus LM Ql (Urine sed)Order ed By: Antonia Jeffers on 11-04-2024 Mucus Ql (Urine sed) 0 SEEN /hpf [facility] Neutrophil percentageOrdered By: Antonia Jeffesr on 11-04-2024 Neutrophils/100 WBC (Bld) 67.1 % 47-70 [facility] Nitrite Test strip Ql (U)Ord ered By: Antonia Jeffers on 11-04-2024 Nitrite Ql (U) Negative Negative [facility] Nucleated red blood cell per centageOrdered By: Antonia Jeffers on 11-04-2024 Nucleated RBC/100 WBC (Bld) [Ratio] 0 % 0-5 [facility] Platelet countOrdered By: Augusto Jeffers on 11-04-2024 Platelets (Bld) [#/Vol] 238 10*3/uL 150-450 [facility] Potassium measurement (mass/ volume)Ordered By: Antonia Jeffers on 11-04-2024 Potassium (Unsp spec) [Mass/Vol] 4.0 mmol/L 3.3-5.1 [facility] Protein Test strip Ql (U)Ord ered By: Antonia Jeffers on 11-04-2024 Protein Ql (U) Negative Negative [facility] RBC Auto (Bld) [#/Vol]Ordere d By: Antonia Jeffers on 11-04-2024 RBC (Bld) [#/Vol] 4.69 10*6/uL 4.6-6.2 [facility] Random urine creatinine lucero urement (mass/volume)Ordered By: Antonia Jeffers on 11-04-2024 Creatinine Unsp time (U) [Mass/Vol] 72.70 mg/dL 39.00-259.00 [facility] Screening total cholesterol/ high density lipoprotein (HDL) cholesterol ratioOrdered By: Antonia Jeffers on 11-04-2024 Cholesterol.total/Cho lesterol in HDL [Mass ratio] 3.36 {ratio} [facility] Serum creatinine measurement (mass/volume)Ordered By: Antonia Jeffers on 11-04-2024 Creatinine [Mass/Vol] 0.77 mg/dL 0.70-1.20 [facility] Serum globulin measurementOr dered By: Antonia Jeffers on 11-04-2024 Globulin (S) [Mass/Vol] 2.3 g/dL 2.2-4.2 [facility] Serum glucose measurement (m ass/volume)Ordered By: Antonia Jeffers on 11-04-2024 Glucose [Mass/Vol] 125 mg/dL High 70-99 [facility] Serum or plasma alanine hughes otransferase (ALT) measurementOrdered By: Antonia Jeffers on 11-04-2024 ALT [Catalytic activity/Vol] 30 U/L <47 [facility] Serum or plasma albumin lucero urement (mass/volume)Ordered By: Antonia Jeffers on 11-04-2024 Albumin [Mass/Vol] 4.2 g/dL 3.4-4.8 [facility] Serum or plasma albumin/glob ulin mass ratioOrdered By: Antonia Jeffers on 11-04-2024 Albumin/Globulin [Mass ratio] 1.8 {ratio} 0.9-2.4 [facility] Serum or plasma alkaline juan sphatase measurementOrdered By: Antonia Jeffers on 11-04-2024 ALP [Catalytic activity/Vol] 45 U/L 40-129 [facility] Serum or plasma calcium lucero urement (mass/volume)Ordered By: Antonia Jeffers on 11-04-2024 Calcium [Mass/Vol] 9.2 mg/dL 7.6-11.0 [facility] Serum or plasma cholesterol in HDL measurement (mass/volume)Ordered By: Antonia Jeffers on 11-04-2024 Cholesterol in HDL [Mass/Vol] 43 mg/dL >40 [facility] Comment on above: National Cholesterol Education Program (NCEP) guidelines:<40 mg/dL: Low HDL-cholesterol (major risk factor for CHD)>= 60 mg/dL: High HDL-cholesterol (negative risk factor for CHD)HDL-cholesterol is affected by a number of factors, e.g. smoking, exercise, hormones, sex and age. Serum or plasma cholesterol measurement (mass/volume)Ordered By: Antonia Jeffers on 11-04-2024 Cholesterol [Mass/Vol] 143 mg/dL <201 [facility] Comment on above: Cholesterol level, D esirable <200 mg/dLBorderline high cholesterol 200-239 mg/dLHigh cholesterol >=240 mg/dLRecommendations of the NCEP Adult Treatment Panel for the following risk-cutoff thresholds for the [place] population. Serum or plasma urea nitroge n measurement (mass/volume)Ordered By: Antonia Jeffers on 11-04-2024 Urea nitrogen [Mass/Vol] 15 mg/dL 4-19 [facility] Sodium levelOrdered By: Yelena Jeffers on 11-04-2024 Sodium [Moles/Vol] 142 mmol/L 133-145 [facility] Squamous epithelial cells de tection in urine sediment by light microscopyOrdered By: Antonia Jeffers on 11-04-2024 Epithelial cells.squamous LM Ql (Urine sed) 0 SEEN /hpf 0-5 [facility] TSH DL <= 0.005 mIU/L QnOrde red By: Antonia Jeffers on 11-04-2024 TSH Qn 2.030 uIU/mL 0.300-4.200 [facility] Thyroid Stim Hormone (TSH)on 11-04-2024 TSH 2.030 uIU/mL Normal 0.300-4.200 [facility] Comment on above: Performed By: #### L 400.0001, L502.0250, L500.4050, L506.1001, L500.4100, L100.0100, L501.9520 #### [facility] [address] [place], [address] Total proteinOrdered By: Janis Jeffers on 11-04-2024 Protein [Mass/Vol] 6.5 g/dL 5.9-8.4 [facility] Triglycerides measurementOrd ered By: Antonia Jeffers on 11-04-2024 Triglyceride [Mass/Vol] 88 mg/dL <199 [facility] Comment on above: The drugs N-Acetylcy steine and Metamizole may falsely depress this assay. Normal range: <150 mg/dLBorderline High: 150-199 mg/dLHigh: 200-499 mg/dLVery High: >500 mg/dL Urinalysis, Completeon 11-04 RBC 0-5 SEEN Normal 0-5 [facility] Comment on above: Order Comment: Urine , Random Performed By: #### L 400.0001, L502.0250, L500.4050, L506.1001, L500.4100, L100.0100, L501.9520 #### [facility] [address] [place], [address] BACTERIA 0 SEEN Normal None Seen [facility] Comment on above: Order Comment: Urine , Random Performed By: #### L 400.0001, L502.0250, L500.4050, L506.1001, L500.4100, L100.0100, L501.9520 #### [facility] [address] [place], [address] EPI,SQUAMOUS 0 SEEN Normal 0-5 [facility] Comment on above: Order Comment: Urine , Random Performed By: #### L 400.0001, L502.0250, L500.4050, L506.1001, L500.4100, L100.0100, L501.9520 #### [facility] [address] [place], [address] Mucus Ql (Urine sed) 0 SEEN Normal [facility] Comment on above: Order Comment: Urine , Random Performed By: #### L 400.0001, L502.0250, L500.4050, L506.1001, L500.4100, L100.0100, L501.9520 #### [facility] [address] [place], [place], [id number] WBC 0 SEEN Normal 0-5 [facility] Comment on above: Order Comment: Urine , Random Performed By: #### L 400.0001, L502.0250, L500.4050, L506.1001, L500.4100, L100.0100, L501.9520 #### [facility] [address] [place], [place], [id number] Urine albumin measurement wi detection limit of 20 mg/L or less (mass/volume)Ordered By: Antonia Jeffers on 11-04-2024 Albumin DL <= 20 mg/L (U) [Mass/Vol] < 12.0 mg/L NO RANGE EST. [facility] Urine clarityOrdered By: Janis Jeffers on 11-04-2024 Clarity (U) Clear Clear [facility] Urine color determinationOrd ered By: Antonia Jeffers on 11-04-2024 Color (U) Yellow Yellow [facility] Urine glucose detectionOrder ed By: Antonia Jeffers on 11-04-2024 Glucose Ql (U) Normal mg/dl Normal [facility] Urine leukocyte esterase det ection by dipstickOrdered By: Antonia Jeffers on 11-04-2024 Leukocyte esterase Test strip Ql (U) Negative Negative [facility] Urine pHOrdered By: Antonia Jeffers on 11-04-2024 pH (U) 6.0 [pH] 5.0 - 8.0 [facility] Urine sediment bacteria coun t by microscopy (number/high power field)Ordered By: Antonia Jeffers on 11-04-2024 Bacteria LM.HPF (Urine sed) [#/Area] 0 /[HPF] None Seen [facility] Urine specific gravity measu rementOrdered By: Antonia Jeffers on 11-04-2024 Specific gravity (U) [Rel density] 1.015 1.002-1.030 [facility] Urine urobilinogen measureme ntOrdered By: Antonia Jeffers on 11-04-2024 Urobilinogen Ql (U) Normal mg/dl Normal [facility] Vitamin D,25 Hydroxyon 11-04 Vitamin D 25-OH 63.0 ng/mL Normal 30-100 [facility] Comment on above: Result Comment: Jasmin min D Status Deficiency: <20 ng/mL (50nmol/L) Insufficiency: 20-30 ng/mL (50-75 nmol/L) Sufficiency: 30-100 ng/mL (75-250 nmol/L) Toxicity: >100 ng/mL (>250 nmol/L) Performed By: #### L 400.0001, L502.0250, L500.4050, L506.1001, L500.4100, L100.0100, L501.9520 #### [facility] [address] [place], [address] White blood cell (WBC) count Ordered By: Antonia Jeffers on 11-04-2024 WBC (Bld) [#/Vol] 8.3 10*3/uL 4.4-11.0 [facility] White blood cell countOrdere d By: Antonia Jeffers on 11-04-2024 White blood cell count 0 SEEN /hpf 0-5 [facility] Lipid Profileon 03-22-2024 Cholesterol [Mass/Vol] 186 mg/dL Normal 200 [facility] Comment on above: Result Comment: <200 mg/dL Desirable 200-240 mg/dL Borderline >240 mg/dL High Risk Performed By: #### L 500.4100, L503.0105 #### [facility] [address] [place], [address] Cholesterol in HDL [Mass/Vol] 43 mg/dL Normal [facility] Comment on above: Result Comment: The drugs N-Acetylcysteine and Metamizole may falsely depress this assay. Reference Range HDL <40 mg/dL Low HDL Cholesterol HDL >or= 60 mg/dL High HDL Cholesterol Performed By: #### L 500.4100, L503.0105 #### [facility] [address] [place], [address] Cholesterol in LDL [Mass/Vol] 109 mg/dL Normal 0-130 [facility] Comment on above: Performed By: #### L 500.4100, L503.0105 #### [facility] [address] [place], [address] Cholesterol in VLDL [Mass/Vol] 34 mg/dL Normal 5-40 [facility] Comment on above: Performed By: #### L 500.4100, L503.0105 #### [facility] [address] [place], [address] Triglyceride [Mass/Vol] 170 mg/dL Normal [facility] Comment on above: Result Comment: The drugs N-Acetylcysteine and Metamizole may falsely depress this assay. Serum Triglycerides Reference Interval Normal <150 mg/dL Borderline high 150 - 199 mg/dL High 200 - 499 mg/dL Very High > or = 500 mg/dL Performed By: #### L 500.4100, L503.0105 #### [facility] [address] [place], [address] Vitamin B12on 03-22-2024 Cobalamin (Vitamin B12) [Mass/Vol] pg/mL High 211-911 [facility] Comment on above: Performed By: #### L 500.4100, L503.0105 #### [facility] [address] [place], [address] Calprotectin, Stoolon [address] Normal [facility] Comment on above: Result Comment: TEST RESULTS LIMITS Calprotectin, Fecal 19 ug/g 0-120 Concentration Interpretation Follow-Up < 5 - 50 ug/g Normal None >50 -120 ug/g Borderline Re-evaluate in 4-6 weeks >120 ug/g Abnormal Repeat as clinically indicated TESTING PERFORMED AT [facility]. ORIGINAL REPORT ON FILE IN LAB CONTAINS ADDITIONAL TEST SITE INFORMATION. Performed By: #### L 400.0001, L502.0250, L500.4050, L506.1001, L500.4100, L100.0100, L501.9520 #### [facility] [address] [place], [place], [id number] Miscellaneous Lab Procedureo n 03-09-2024 [facility] LAB TEST E Normal [facility] Comment on above: Order Comment: STOOL CULTURE [id number] Result Comment: Stoo l Culture Final Report Salmonella/Shigella Screen No Salmonella/Shigella isolated. Campylobacter Culture No Campylobacter isolated. E coli Shiga Toxin EIA Negative TESTING PERFORMED AT [facility]. ORIGINAL REPORT ON FILE IN LAB CONTAINS ADDITIONAL TEST SITE INFORMATION. Performed By: #### L 500.4100, L503.0105 #### [facility] [address] [place], [place], [address] Ova and Parasites 8623on OP OVA AND PARASITES EX AM, ROUTINE These results were obtained using wet preparation(s) and trichrome stained smear. This test does not include testing for Crytosporidium parvum, Cyclospora, or Microsporidia. One negative specimen does not rule out the possibility of a parasitic infection. TESTING PERFORMED AT [facility]. ORIGINAL REPORT ON FILE IN LAB CONTAINS ADDITIONAL TEST SITE INFORMATION. Ova/Parasite Exam NO OVA, CYSTS, OR PARASITES FOUND. Normal [facility] Comment on above: Performed By: #### L 400.0001, L502.0250, L500.4050, L506.1001, L500.4100, L100.0100, L501.9520 #### [facility] [address] [place], [address] (257) CBC W/Diff, Automatedon 10-1 0-2024 Absolute Lymph 2.64 X10 3/uL Normal 0.83-4.51 [facility] Comment on above: Performed By: #### L 400.0001, L502.0250, L500.4050, L506.1001, L500.4100, L100.0100, L501.9520 #### [facility] [address] [place], [address] (729) Absolute Neut 5.6 X10 3/uL Normal 2.0-7.7 [facility] Comment on above: Performed By: #### L 400.0001, L502.0250, L500.4050, L506.1001, L500.4100, L100.0100, L501.9520 #### [facility] [address] [place], [place], [phone] (667 Basophils/100 WBC (Bld) 0.4 % Normal 0-1 [facility] Comment on above: Performed By: #### L 400.0001, L502.0250, L500.4050, L506.1001, L500.4100, L100.0100, L501.9520 #### [facility] [address], [address] Eosinophils/100 WBC (Bld) 1.9 % Normal 0-5 [facility] Comment on above: Performed By: #### L 400.0001, L502.0250, L500.4050, L506.1001, L500.4100, L100.0100, L501.9520 #### [facility] [address], [address] Erythrocyte distribution width (RBC) [Ratio] 13.1 % Normal 11.6-14.6 [facility] Comment on above: Performed By: #### L 400.0001, L502.0250, L500.4050, L506.1001, L500.4100, L100.0100, L501.9520 #### [facility] [address], [address] Hematocrit (Bld) [Volume fraction] 43.8 % Normal 40-54 [facility] Comment on above: Performed By: #### L 400.0001, L502.0250, L500.4050, L506.1001, L500.4100, L100.0100, L501.9520 #### [facility] [address], [address] Hemoglobin (Bld) [Mass/Vol] 14.5 g/dL Normal 13.0-16.5 [facility] Comment on above: Performed By: #### L 400.0001, L502.0250, L500.4050, L506.1001, L500.4100, L100.0100, L501.9520 #### [facility] [address] [place], [address] IG% 0.200 Normal 0.0-0.9 [facility] Comment on above: Result Comment: IG% - Immature Granulocytes (promyelocytes, myelocytes and metamyelocytes) > 1% indicates that a LEFT SHIFT is Present. Performed By: #### L 400.0001, L502.0250, L500.4050, L506.1001, L500.4100, L100.0100, L501.9520 #### [facility] [address] [place], [address] Lymphocytes/100 WBC (Bld) 29.5 % Normal 19-41 [facility] Comment on above: Performed By: #### L 400.0001, L502.0250, L500.4050, L506.1001, L500.4100, L100.0100, L501.9520 #### [facility] [address] [place], [address] MCH (RBC) [Entitic mass] 31.8 pg Normal 27.0-32.0 [facility] Comment on above: Performed By: #### L 400.0001, L502.0250, L500.4050, L506.1001, L500.4100, L100.0100, L501.9520 #### [facility] [address] [place], [address] MCHC (RBC) [Mass/Vol] 33.1 g/dL Normal 32-36 [facility] Comment on above: Performed By: #### L 400.0001, L502.0250, L500.4050, L506.1001, L500.4100, L100.0100, L501.9520 #### [facility] [address] [place], [address] MCV (RBC) [Entitic vol] 96.1 fL High 80-94 [facility] Comment on above: Performed By: #### L 400.0001, L502.0250, L500.4050, L506.1001, L500.4100, L100.0100, L501.9520 #### [facility] [address] [place], [address] Monocytes/100 WBC (Bld) 5.1 % Normal 0-10 [facility] Comment on above: Performed By: #### L 400.0001, L502.0250, L500.4050, L506.1001, L500.4100, L100.0100, L501.9520 #### [facility] [address] [place], [address] Neutrophils/100 WBC (Bld) 62.9 % Normal 47-70 [facility] Comment on above: Performed By: #### L 400.0001, L502.0250, L500.4050, L506.1001, L500.4100, L100.0100, L501.9520 #### [facility] [address] [place], [address] Nucleated RBC (Bld) [#/Vol] 0 10*3/uL Normal 0-5 [facility] Comment on above: Performed By: #### L 400.0001, L502.0250, L500.4050, L506.1001, L500.4100, L100.0100, L501.9520 #### [facility] [address] [place], [address] Platelet mean volume (Bld) [Entitic vol] 8.5 fL Normal 6.2-12.0 [facility] Comment on above: Performed By: #### L 400.0001, L502.0250, L500.4050, L506.1001, L500.4100, L100.0100, L501.9520 #### [facility] [address] [place], [address] Platelets (Bld) [#/Vol] 233 10*3/uL Normal 150-450 [facility] Comment on above: Performed By: #### L 400.0001, L502.0250, L500.4050, L506.1001, L500.4100, L100.0100, L501.9520 #### [facility] [address] [place], [address] RBC (Bld) [#/Vol] 4.56 10*6/uL Low 4.6-6.2 [facility] Comment on above: Performed By: #### L 400.0001, L502.0250, L500.4050, L506.1001, L500.4100, L100.0100, L501.9520 #### [facility] [address] [place], [address] RDW SD 46.5 fl High 35.1-43.9 [facility] Comment on above: Performed By: #### L 400.0001, L502.0250, L500.4050, L506.1001, L500.4100, L100.0100, L501.9520 #### [facility] [address] [place], [address] WBC (Bld) [#/Vol] 8.9 10*3/uL Normal 4.4-11.0 [facility] Comment on above: Performed By: #### L 400.0001, L502.0250, L500.4050, L506.1001, L500.4100, L100.0100, L501.9520 #### [facility] [address] [place], [address] CDIFF (PCR)on 02-25-2024 CDIFF Pending 027 027 NAP1-B1 Presumptive Negative *for epidemiolologic???use C. Diff PCR Negative- No toxigenic C. Diff Detected Normal [facility] Comment on above: Performed By: #### L 500.4100, L503.0105 #### [facility] [address] [place], [address] Comprehensive Metabolic Prof ilon 10-10-2024 Albumin [Mass/Vol] 3.6 g/dL Normal 3.2-5.0 [facility] Comment on above: Performed By: #### L 400.0001, L502.0250, L500.4050, L506.1001, L500.4100, L100.0100, L501.9520 #### [facility] [address] [place], [address] Albumin/Globulin [Mass ratio] 1.2 {ratio} Normal 0.9-2.4 [facility] Comment on above: Performed By: #### L 400.0001, L502.0250, L500.4050, L506.1001, L500.4100, L100.0100, L501.9520 #### [facility] [address] [place], [address] ALK P 51 U/L Normal 45-117 [facility] Comment on above: Performed By: #### L 400.0001, L502.0250, L500.4050, L506.1001, L500.4100, L100.0100, L501.9520 #### [facility] [address] [place], [address] ALT [Catalytic activity/Vol] 36 U/L Normal 16-61 [facility] Comment on above: Performed By: #### L 400.0001, L502.0250, L500.4050, L506.1001, L500.4100, L100.0100, L501.9520 #### [facility] [address] [place], [address] AST [Catalytic activity/Vol] 20 U/L Normal 15-37 [facility] Comment on above: Performed By: #### L 400.0001, L502.0250, L500.4050, L506.1001, L500.4100, L100.0100, L501.9520 #### [facility] [address] [place], [address] Bilirubin [Mass/Vol] 0.40 mg/dL Normal 0.20-1.00 [facility] Comment on above: Result Comment: For patients on eltrombopag therapy, use of Dimension [place] TBIL is not recommended. Performed By: #### L 400.0001, L502.0250, L500.4050, L506.1001, L500.4100, L100.0100, L501.9520 #### [facility] [address] [place], [address] BUN/CRE 16.3 RATIO Normal 10-20 [facility] Comment on above: Performed By: #### L 400.0001, L502.0250, L500.4050, L506.1001, L500.4100, L100.0100, L501.9520 #### [facility] [address] [place], [address] CA,Total 9.4 mg/dL Normal 8.5-10.1 [facility] Comment on above: Performed By: #### L 400.0001, L502.0250, L500.4050, L506.1001, L500.4100, L100.0100, L501.9520 #### [facility] [address] [place], [address] Chloride [Moles/Vol] 110 mmol/L High 98-107 [facility] Comment on above: Performed By: #### L 400.0001, L502.0250, L500.4050, L506.1001, L500.4100, L100.0100, L501.9520 #### [facility] [address] [place], [address] CO2 [Moles/Vol] 31.0 mmol/L Normal 21.0-32.0 [facility] Comment on above: Performed By: #### L 400.0001, L502.0250, L500.4050, L506.1001, L500.4100, L100.0100, L501.9520 #### [facility] [address] [place], [place], [id number] Creatinine [Mass/Vol] 0.92 mg/dL Normal 0.70-1.30 [facility] Comment on above: Result Comment: The validity of the calculated GFR GFRAA in patients over 70 years has not been determined. Clinical correlation is essential. Performed By: #### L 400.0001, L502.0250, L500.4050, L506.1001, L500.4100, L100.0100, L501.9520 #### [facility] [address] [place], [place], [id number] EST GFR - AA 103 mL/min Normal >60 [facility] Comment on above: Result Comment: Afri can [place] GFR Calc Performed By: #### L 400.0001, L502.0250, L500.4050, L506.1001, L500.4100, L100.0100, L501.9520 #### [facility] [address] [place], [place], [id number] GAP 3 Low 5-15 [facility] Comment on above: Performed By: #### L 400.0001, L502.0250, L500.4050, L506.1001, L500.4100, L100.0100, L501.9520 #### [facility] [address] [place], [place], [id number] GFR/1.73 sq M.predicted among non-blacks MDRD (S/P/Bld) [Vol rate/Area] 85 mL/min/{1.73_m2} Normal >60 [facility] Comment on above: Result Comment: Non- GFR Calc Performed By: #### L 400.0001, L502.0250, L500.4050, L506.1001, L500.4100, L100.0100, L501.9520 #### [facility] [address] [place], [address] Globulin (S) [Mass/Vol] 3.1 g/dL Normal 2.2-4.2 [facility] Comment on above: Performed By: #### L 400.0001, L502.0250, L500.4050, L506.1001, L500.4100, L100.0100, L501.9520 #### [facility] [address] [place], [address] Glucose [Mass/Vol] 113 mg/dL High 74-106 [facility] Comment on above: Result Comment: Fast ing Glucose result from 100 to 125 mg/dL suggests IMPAIRED HOMEOSTASIS per A.D.A. criteria. Performed By: #### L 400.0001, L502.0250, L500.4050, L506.1001, L500.4100, L100.0100, L501.9520 #### [facility] [address] [place], [address] Potassium [Moles/Vol] 4.1 mmol/L Normal 3.5-5.1 [facility] Comment on above: Performed By: #### L 400.0001, L502.0250, L500.4050, L506.1001, L500.4100, L100.0100, L501.9520 #### [facility] [address] [place], [address] Sodium [Moles/Vol] 143 mmol/L Normal 136-145 [facility] Comment on above: Performed By: #### L 400.0001, L502.0250, L500.4050, L506.1001, L500.4100, L100.0100, L501.9520 #### [facility] [address] [place], [address] T PROT 6.7 g/dL Normal 6.4-8.2 [facility] Comment on above: Performed By: #### L 400.0001, L502.0250, L500.4050, L506.1001, L500.4100, L100.0100, L501.9520 #### [facility] [address] [place], [address] Urea nitrogen [Mass/Vol] 15 mg/dL Normal 7-18 [facility] Comment on above: Performed By: #### L 400.0001, L502.0250, L500.4050, L506.1001, L500.4100, L100.0100, L501.9520 #### [facility] [address] [place], [address] Stool Lactoferrin/WBCon 02-15 WBCST Normal Reference Ran ge = Negative Fecal WBC Lactoferrin Negative: No Fecal WBC Lactoferrin present Normal [facility] Comment on above: Performed By: #### L 500.4100, L503.0105 #### [facility] [address] [place], [address] PSA Total (Rflx Free)on 12-16 COMMENT Comment Normal . [facility] Comment on above: Result Comment: The percent free PSA is performed on a reflex basis only when the total PSA is between 4.0 and 10.0 ng/mL. Performed at: [address] [id number] Care Consultant: Cyrus Bean PhD, Phone: [phone] Performed By: #### L 500.4100, L503.0105 #### [facility] [address] [place], [address] PSA, TOTAL 0.8 ng/mL Normal 0.0-4.0 [facility] Comment on above: Result Comment: Beveryl rdz ECLIA methodology. According to the [place] [employer], Serum PSA should decrease and remain at undetectable levels after radical prostatectomy. The AUA defines biochemical recurrence as an initial PSA value 0.2 ng/mL or greater followed by a subsequent confirmatory PSA value 0.2 ng/mL or greater. Values obtained with different assay methods or kits cannot be used interchangeably. Results cannot be interpreted as absolute evidence of the presence or absence of malignant disease. Performed By: #### L 500.4100, L503.0105 #### [facility] [address] [place], [address] CBC-Complete Blood Cnt No Di ffon 12-30-2023 Erythrocyte distribution width (RBC) [Ratio] 13.4 % Normal 11.6-14.6 [facility] Comment on above: Performed By: #### L 500.4100, L500.4050, L3110.0100, L506.1000, L502.0250, L100.0500, L501.9520, L400.0001 #### [facility] [address] [facility] [place], [address] Hematocrit (Bld) [Volume fraction] 46.0 % Normal 40-54 [facility] Comment on above: Performed By: #### L 500.4100, L500.4050, L3110.0100, L506.1000, L502.0250, L100.0500, L501.9520, L400.0001 #### [facility] [address], [address] Hemoglobin (Bld) [Mass/Vol] 15.6 g/dL Normal 13.0-16.5 [facility] Comment on above: Performed By: #### L 500.4100, L500.4050, L3110.0100, L506.1000, L502.0250, L100.0500, L501.9520, L400.0001 #### [facility] [address] [place], [address] MCH (RBC) [Entitic mass] 32.4 pg High 27.0-32.0 [facility] Comment on above: Performed By: #### L 500.4100, L500.4050, L3110.0100, L506.1000, L502.0250, L100.0500, L501.9520, L400.0001 #### [facility] [address] [place], [address] MCHC (RBC) [Mass/Vol] 33.9 g/dL Normal 32-36 [facility] Comment on above: Performed By: #### L 500.4100, L500.4050, L3110.0100, L506.1000, L502.0250, L100.0500, L501.9520, L400.0001 #### [facility] [address] [place], [address] MCV (RBC) [Entitic vol] 95.4 fL High 80-94 [facility] Comment on above: Performed By: #### L 500.4100, L500.4050, L3110.0100, L506.1000, L502.0250, L100.0500, L501.9520, L400.0001 #### [facility] [address] [place], [address] Platelet mean volume (Bld) [Entitic vol] 8.8 fL Normal 6.2-12.0 [facility] Comment on above: Performed By: #### L 500.4100, L500.4050, L3110.0100, L506.1000, L502.0250, L100.0500, L501.9520, L400.0001 #### [facility] [address] [place], [address] Platelets (Bld) [#/Vol] 242 10*3/uL Normal 150-450 [facility] Comment on above: Performed By: #### L 500.4100, L500.4050, L3110.0100, L506.1000, L502.0250, L100.0500, L501.9520, L400.0001 #### [facility] [address] [place], [address] RBC (Bld) [#/Vol] 4.82 10*6/uL Normal 4.6-6.2 [facility] Comment on above: Performed By: #### L 500.4100, L500.4050, L3110.0100, L506.1000, L502.0250, L100.0500, L501.9520, L400.0001 #### [facility] [address] [place], [address] RDW SD 47.3 fl High 35.1-43.9 [facility] Comment on above: Performed By: #### L 500.4100, L500.4050, L3110.0100, L506.1000, L502.0250, L100.0500, L501.9520, L400.0001 #### [facility] [address] [place], [address] WBC (Bld) [#/Vol] 9.7 10*3/uL Normal 4.4-11.0 [facility] Comment on above: Performed By: #### L 500.4100, L500.4050, L3110.0100, L506.1000, L502.0250, L100.0500, L501.9520, L400.0001 #### [facility] [address] [place], [address] Comprehensive Metabolic Prof [facility] 12-30-2023 Albumin [Mass/Vol] 3.6 g/dL Normal 3.2-5.0 [facility] Comment on above: Performed By: #### L 500.4100, L503.0105 #### [facility] [address] [place], [address] Albumin/Globulin [Mass ratio] 1.2 {ratio} Normal 0.9-2.4 [facility] Comment on above: Performed By: #### L 500.4100, L503.0105 #### [facility] [address] [place], [address] ALK P 42 U/L Low 45-117 [facility] Comment on above: Performed By: #### L 500.4100, L503.0105 #### [facility] [address] [place], [address] ALT [Catalytic activity/Vol] 39 U/L Normal 16-61 [facility] Comment on above: Performed By: #### L 500.4100, [id number] #### [facility] [address] [place], [address] AST [Catalytic activity/Vol] 22 U/L Normal 15-37 [facility] Comment on above: Performed By: #### L 500.4100, [id number] #### [facility] [address] [place], [address] Bilirubin [Mass/Vol] 0.50 mg/dL Normal 0.20-1.00 [facility] Comment on above: Result Comment: For patients on eltrombopag therapy, use of Dimension [place] TBIL is not recommended. Performed By: #### L 500.4100, [id number] #### [facility] [address] [place], [address] BUN/CRE 12.5 RATIO Normal 10-20 [facility] Comment on above: Performed By: #### L 500.4100, [id number] #### [facility] [address] [place], [address] CA,Total 8.9 mg/dL Normal 8.5-10.1 [facility] Comment on above: Performed By: #### L 500.4100, [id number] #### [facility] [address] [place], [address] Chloride [Moles/Vol] 105 mmol/L Normal 98-107 [facility] Comment on above: Performed By: #### L 500.4100, [id number] #### [facility] [address] [place], [address] CO2 [Moles/Vol] 31.0 mmol/L Normal 21.0-32.0 [facility] Comment on above: Performed By: #### L 500.4100, [id number] #### [facility] [address] [place], [address] Creatinine [Mass/Vol] 0.88 mg/dL Normal 0.70-1.30 [facility] Comment on above: Result Comment: The validity of the calculated GFR GFRAA in patients over 70 years has not been determined. Clinical correlation is essential. Performed By: #### L 500.4100, L503.0105 #### [facility] [address] [place], [address] EST GFR - AA 109 mL/min Normal >60 [facility] Comment on above: Result Comment: Afri can [place] GFR Calc Performed By: #### L 500.4100, [id number] #### [facility] [address] [place], [address] GAP 4 Low 5-15 [facility] Comment on above: Performed By: #### L 500.4100, [id number] #### [facility] [address] [place], [address] GFR/1.73 sq M.predicted among non-blacks MDRD (S/P/Bld) [Vol rate/Area] 90 mL/min/{1.73_m2} Normal >60 [facility] Comment on above: Result Comment: Non- GFR Calc Performed By: #### L 500.4100, [id number] #### [facility] [address] [place], [address] Globulin (S) [Mass/Vol] 3.1 g/dL Normal 2.2-4.2 [facility] Comment on above: Performed By: #### L 500.4100, [id number] #### [facility] [address] [place], [address] Glucose [Mass/Vol] 122 mg/dL High 74-106 [facility] Comment on above: Result Comment: Fast ing Glucose result from 100 to 125 mg/dL suggests IMPAIRED HOMEOSTASIS per A.D.A. criteria. Performed By: #### L 500.4100, [id number] #### [facility] [address] [place], [address] Potassium [Moles/Vol] 4.3 mmol/L Normal 3.5-5.1 [facility] Comment on above: Performed By: #### L 500.4100, [id number] #### [facility] [address] [place], [address] Sodium [Moles/Vol] 140 mmol/L Normal 136-145 [facility] Comment on above: Performed By: #### L 500.4100, [id number] #### [facility] [address] [place], [address] T PROT 6.7 g/dL Normal 6.4-8.2 [facility] Comment on above: Performed By: #### L 500.4100, [id number] #### [facility] [address] [place], [address] Urea nitrogen [Mass/Vol] 11 mg/dL Normal 7-18 [facility] Comment on above: Performed By: #### L 500.4100, [id number] #### [facility] [address] [place], [address] Lipid Profileon 12-30-2023 Cholesterol [Mass/Vol] 157 mg/dL Normal 200 [facility] Comment on above: Result Comment: <200 mg/dL Desirable 200-240 mg/dL Borderline >240 mg/dL High Risk Performed By: #### L 500.4100, [id number] #### [facility] [address] [place], [address] Cholesterol in HDL [Mass/Vol] 39 mg/dL Low [facility] Comment on above: Result Comment: The drugs N-Acetylcysteine and Metamizole may falsely depress this assay. Reference Range HDL <40 mg/dL Low HDL Cholesterol HDL >or= 60 mg/dL High HDL Cholesterol Performed By: #### L 500.4100, [id number] #### [facility] [address] [place], [address] Cholesterol in LDL [Mass/Vol] 87 mg/dL Normal 0-130 [facility] Comment on above: Performed By: #### L 500.4100, [id number] #### [facility] [address] [place], [address] Cholesterol in VLDL [Mass/Vol] 31 mg/dL Normal 5-40 [facility] Comment on above: Performed By: #### L 500.4100, [id number] #### [facility] [address] [place], [address] Triglyceride [Mass/Vol] 157 mg/dL Normal [facility] Comment on above: Result Comment: The drugs N-Acetylcysteine and Metamizole may falsely depress this assay. Serum Triglycerides Reference Interval Normal <150 mg/dL Borderline high 150 - 199 mg/dL High 200 - 499 mg/dL Very High > or = 500 mg/dL Performed By: #### L 500.4100, L503.0105 #### [facility] [address] [place], [address] Microalb:Creat Ratio,Random URon 12-30-2023 Creatinine [Mass/Vol] 88.80 mg/dL Normal NO RAN GE EST. [facility] Comment on above: Performed By: #### L 500.4100, L503.0105 #### [facility] [address] [place], [address] MALB:CRE TNP Normal <30 mg/g CRE [facility] Comment on above: Performed By: #### L 500.4100, [id number] #### [facility] [address] [place], [address] MICROALBUMIN,UR < 5.0 Normal NO RANGE EST. [facility] Comment on above: Performed By: #### L 500.4100, [id number] #### [facility] [address] [place], [address] Thyroid Stim Hormone (TSH)on 12-30-2023 TSH 1.810 uIU/mL Normal 0.358-3.740 [facility] Comment on above: Performed By: #### L 500.4100, [id number] #### [facility] [address] [place], [address] Urinalysis, Completeon 12-29 AMORPHOUS 2+ Normal [facility] Comment on above: Order Comment: Urine , Random Performed By: #### L 500.4100, [id number] #### [facility] [address] [place], [address] BACTERIA 0 SEEN Normal None Seen [facility] Comment on above: Order Comment: Urine , Random Performed By: #### L 500.4100, [id number] #### [facility] [address] [place], [address] EPI,SQUAMOUS 0 SEEN Normal 0-5 [facility] Comment on above: Order Comment: Urine , Random Performed By: #### L 500.4100, [id number] #### [facility] [address] [place], [address] Mucus Ql (Urine sed) 0 SEEN Normal [facility] Comment on above: Order Comment: Urine , Random Performed By: #### L 500.4100, [id number] #### [facility] [address] [place], [address] RBC 0 SEEN Normal 0-5 [facility] Comment on above: Order Comment: Urine , Random Performed By: #### L 500.4100, [id number] #### [facility] [address] [place], [address] WBC 0 SEEN Normal 0-5 [facility] Comment on above: Order Comment: Urine , Random Performed By: #### L 500.4100, [id number] #### [facility] [address] [place], [address] Vitamin D,25 Hydroxyon 12-29 Vitamin D 25-OH 101.8 ng/mL Normal [facility] Comment on above: Result Comment: Jasmin min D 25(OH) Status Range Deficiency <20 ng/mL (50nmol/L) Insufficiency 20 - 30 ng/mL (50 - 75 nmol/L) Sufficiency 30 - 100 ng/mL (75 - 250 nmol/L) Toxicity >100 ng/mL (>250 nmol/L) Evidence suggests that patients undergoing fluorescein dye angiography can retain small amounts of fluorescein in the body for up to 48 to 72 hours post-treatment. In the cases of patients with renal insufficiency, retention could be much longer. Samples containing fluorescein can produce falsely elevated values when tested with the Advia Centaur Vitamin D assay. With fluorescein interference, observed Vitamin D values can be as high as >150 ng/mL (>375 nmol/L). Samples should be resubmitted post fluorescein clearance to ensure there is no interference with Vitamin D test results. Performed By: #### L 500.4100, L503.0105 #### [facility] [address] [place], [address] Absolute lymphocyte countOrd ered By: Antonia Jeffers on 05-22-2023 Lymphocytes Auto (Unsp spec) [#/Vol] 3.25 10*3/uL 0.83-4.51 [facility] Basophil percentageOrdered B y: Antonia Jeffers on 05-22-2023 Basophil percentage 0 SEEN /hpf 0-5 [facility] Basophils/100 WBC (Bld) 0.4 % 0-1 [facility] Bilirubin [Mass/Vol] 0.40 mg/dL 0.20-1.00 [facility] Comment on above: For patients on eltr ombopag therapy, use of Dimension [place] TBIL is not recommended. Chloride [Moles/Vol] 107 mmol/L 98-107 [facility] Cholesterol [Mass/Vol] 151 mg/dL <200 [facility] Comment on above: <200 mg/dL Desirable 200-240 mg/dL Borderline >240 mg/dL High Risk Eosinophils/100 WBC (Bld) 3.7 % 0-5 [facility] Glucose [Mass/Vol] 124 mg/dL 74-106 [facility] Comment on above: Fasting Glucose resu lt from 100 to 125 mg/dL suggests IMPAIRED HOMEOSTASIS per A.D.A. criteria. Neutrophils (Bld) [#/Vol] 4.9 10*3/uL 2.0-7.7 [facility] Neutrophils/100 WBC (Bld) 53.2 % 47-70 [facility] Potassium [Moles/Vol] 4.1 mmol/L 3.5-5.1 [facility] Protein [Mass/Vol] 7.0 g/dL 6.4-8.2 [facility] Sodium [Moles/Vol] 141 mmol/L 136-145 [facility] Triglyceride [Mass/Vol] 155 mg/dL <199 [facility] Comment on above: The drugs N-Acetylcy steine and Metamizole may falsely depress this assay.Serum Triglycerides Reference Interval Normal <150 mg/dL Borderline high 150 - 199 mg/dL High 200 - 499 mg/dL Very High > or = 500 mg/dL WBC (Bld) [#/Vol] 9.2 10*3/uL 4.4-11.0 [facility] Bilirubin Test strip Ql (U)O rdered By: Antonia Jeffers on 05-22-2023 Bilirubin Ql (U) Negative Negative [facility] Blood erythrocytes count (nu mber/volume)Ordered By: Antonia Jeffers on 05-22-2023 RBC (Bld) [#/Vol] 4.85 10*6/uL 4.6-6.2 [facility] Blood hemoglobin measurement (mass/volume)Ordered By: Antonia Jeffers on 05-22-2023 Hemoglobin (Bld) [Mass/Vol] 15.2 g/dL 13.0-16.5 [facility] Blood lymphocytes/100 leukoc ytesOrdered By: Antonia Jeffers on 05-22-2023 Lymphocytes/100 WBC (Bld) 35.5 % 19-41 [facility] Blood monocytes/100 leukocyt esOrdered By: Antonia Jeffers on 05-22-2023 Monocytes/100 WBC (Bld) 6.9 % 0-10 [facility] Blood platelet mean volumeOr dered By: Antonia Jeffers on 05-22-2023 Platelet mean volume (Bld) [Entitic vol] 8.6 fL 6.2-12.0 [facility] Determination of erythrocyte mean corpuscular volume (MCV)Ordered By: Antonia Jeffers on 05-22-2023 MCV (RBC) [Entitic vol] 95.7 fL 80-94 [facility] Hematocrit Auto (Bld) [Volum e fraction]Ordered By: Antonia Jeffers on 05-22-2023 Hematocrit (Bld) [Volume fraction] 46.4 % 40-54 [facility] Ketones Test strip Ql (U)Ord ered By: Antonia Jeffers on 05-22-2023 Ketones Ql (U) Negative Negative [facility] - Chemistry and C hemistry - challengeOrdered By: Antonia Jeffers on 05-22-2023 ALP [Catalytic activity/Vol] 47 U/L 45-117 [facility] ALT [Catalytic activity/Vol] 35 U/L 16-61 [facility] CO2 [Moles/Vol] 30.0 mmol/L 21.0-32.0 [facility] Globulin (S) [Mass/Vol] 3.3 g/dL 2.2-4.2 [facility] Urea nitrogen/Creatinine [Mass ratio] 18.9 mg/mg 10-20 [facility] - Hematology and Cell countsOrdered By: Antonia Jeffers on 05-22-2023 Erythrocyte distribution width (RBC) [Entitic vol] 46.4 fL 35.1-43.9 [facility] Erythrocyte distribution width (RBC) [Ratio] 13.2 % 11.6-14.6 [facility] Immature granulocytes/100 WBC (Bld) 0.300 % 0.0-0.9 [facility] Comment on above: IG% - Immature Granu locytes (promyelocytes, myelocytes and metamyelocytes) > 1% indicates that a LEFT SHIFT is Present. MCH (RBC) [Entitic mass] 31.3 pg 27.0-32.0 [facility] Nucleated RBC/100 WBC (Bld) [Ratio] 0 % 0-5 [facility] MCHC Auto (RBC) [Mass/Vol]Or dered By: Antonia Jeffers on 05-22-2023 MCHC (RBC) [Mass/Vol] 32.8 g/dL 32-36 [facility] Mucus LM Ql (Urine sed)Order ed By: Antonia Jeffers on 05-22-2023 Mucus Ql (Urine sed) 0 SEEN /hpf [facility] Nitrite Test strip Ql (U)Ord ered By: Antonia Jeffers on 05-22-2023 Nitrite Ql (U) Negative Negative [facility] No Panel InformationOrdered By: Antonia Jeffers on 05-22-2023 Estimated GFR (MDRD) Amer 122 mL/min >60 [facility] Comment on above: GFR Calc Estimated GFR (MDRD) Non-Af Amer 101 mL/min >60 [facility] Comment on above: Non- GFR Calc Thyroid Stimulating Hormone (TSH) 2.01 uIU/mL 0.358-3.74 [facility] Urine Microalbumin/Creatini ne Ratio 7.0 mg/g CRE <30 [facility] Vitamin D 25-Hydroxy 114.3 ng/mL [facility] Comment on above: Vitamin D 25(OH) Sta tus Range Deficiency <20 ng/mL (50nmol/L) Insufficiency 20 - 30 ng/mL (50 - 75 nmol/L) Sufficiency 30 - 100 ng/mL (75 - 250 nmol/L) Toxicity >100 ng/mL (>250 nmol/L)Evidence suggests that patients undergoing fluorescein dye angiography can retain small amounts of fluorescein in the body for up to 48 to 72 hours post-treatment. In the cases of patients with renal insufficiency, retention could be much longer. Samples containing fluorescein can produce falsely elevated values when tested with the Advia Centaur Vitamin D assay. With fluorescein interference, observed Vitamin D values can be as high as >150 ng/mL (>375 nmol/L). Samples should be resubmitted post fluorescein clearance to ensure there is no interference with Vitamin D test results. Platelets bldOrdered By: Janis Jeffers on 05-22-2023 Platelets (Bld) [#/Vol] 248 10*3/uL 150-450 [facility] Protein Test strip Ql (U)Ord ered By: Antonia Jeffers on 05-22-2023 Protein Ql (U) Negative Negative [facility] Serum or plasma albumin lucero urement (mass/volume)Ordered By: Antonia Jeffers on 05-22-2023 Albumin [Mass/Vol] 3.7 g/dL 3.2-5.0 [facility] Serum or plasma albumin/glob ulin mass ratioOrdered By: Antonia Jeffers on 05-22-2023 Albumin/Globulin [Mass ratio] 1.1 {ratio} 0.9-2.4 [facility] Serum or plasma calcium lucero urement (mass/volume)Ordered By: Antonia Jeffers on 05-22-2023 Calcium [Mass/Vol] 8.5 mg/dL 8.5-10.1 [facility] Serum or plasma cholesterol in HDL measurement (mass/volume)Ordered By: Antonia Jeffers on 05-22-2023 Cholesterol in HDL [Mass/Vol] 42 mg/dL >40 [facility] Comment on above: The drugs N-Acetylcy steine and Metamizole may falsely depress this assay. Reference Range HDL <40 mg/dL Low HDL Cholesterol HDL >or= 60 mg/dL High HDL Cholesterol Serum or plasma cholesterol in VLDL measurement (mass/volume)Ordered By: Antonia Jeffers on 05-22-2023 Cholesterol in VLDL [Mass/Vol] 31 mg/dL 5-40 [facility] Serum or plasma creatinine m easurement (mass/volume)Ordered By: Antonia Jeffers on 05-22-2023 Creatinine [Mass/Vol] 0.80 mg/dL 0.70-1.30 [facility] Comment on above: The validity of the calculated GFR & GFRAA in patients over 70 years has not been determined. Clinical correlation is essential. Serum or plasma low density lipoprotein (LDL) cholesterol measurement (mass/volume)Ordered By: Antonia Jeffers on 05-22-2023 Cholesterol in LDL [Mass/Vol] 78 mg/dL 0-130 [facility] Serum or plasma urea nitroge n measurement (mass/volume)Ordered By: Antonia Jeffers on 05-22-2023 Urea nitrogen [Mass/Vol] 15 mg/dL 7-18 [facility] Squamous epithelial cells de tection in urine sediment by light microscopyOrdered By: Antonia Jeffers on 05-22-2023 Epithelial cells.squamous LM Ql (Urine sed) 0-5 SEEN /hpf 0-5 [facility] Thin prep Papanicolaou smear with manual screeningOrdered By: Antonia Jeffers on 05-22-2023 Thin prep Papanicolaou smear with manual screening 20 U/L 15-37 [facility] Thin prep Papanicolaou smear with manual screening 4 5-15 [facility] Thin prep Papanicolaou smear with manual screening 8.3 mg/L NO RANGE EST. [facility] Urine blood detectionOrdered By: Antonia Jeffers on 05-22-2023 RBC Ql (U) 10 /ul Negative [facility] RBC Ql (U) 0 SEEN /hpf 0-5 [facility] Urine clarityOrdered By: Janis Jeffers on 05-22-2023 Clarity (U) Clear Clear [facility] Urine color determinationOrd ered By: Antonia Jeffers on 05-22-2023 Color (U) Yellow Yellow [facility] Urine creatinine measurement (mass/volume)Ordered By: Antonia Jeffers on 05-22-2023 Creatinine (U) [Mass/Vol] 118.00 mg/dL NO RANGE EST. [facility] Urine glucose detectionOrder ed By: Antonia Jeffers on 05-22-2023 Glucose Ql (U) Normal mg/dl Normal [facility] Urine leukocyte esterase det ection by dipstickOrdered By: Antonia Jeffers on 05-22-2023 Leukocyte esterase Test strip Ql (U) Negative Negative [facility] Urine pHOrdered By: Antonia Jeffers on 05-22-2023 pH (U) 6.5 [pH] 5.0 - 8.0 [facility] Urine sediment bacteria coun t by microscopy (number/high power field)Ordered By: Antonia Jeffers on 05-22-2023 Bacteria LM.HPF (Urine sed) [#/Area] 0 /[HPF] None Seen [facility] Urine specific gravity measu rementOrdered By: Antonia Jeffers on 05-22-2023 Specific gravity (U) [Rel density] 1.015 1.002-1.030 [facility] Urobilinogen Auto test strip Ql (U)Ordered By: Antonia Jeffers on 05-22-2023 Urobilinogen Ql (U) Normal mg/dl Normal [facility] Whole blood hemoglobin A1c/t otal hemoglobin ratio (mass fraction)Ordered By: Antonia Jeffers on 05-22-2023 HbA1c (Bld) [Mass fraction] 6.1 % 3.8-5.6 [facility] Comment on above: Normal < 5.7 % Predi abetic 5.7 - 6.4 % Diabetic >or= 6.5 % Please note range changes. Blood Glucose , Office ([phone])Ordered By: LIUDMILA Moreno on 02-20-2023 Glucose Glucometer (BldC) [Moles/Vol] 89 1 Normal [facility] Work Phone: HGB A1C ([phone])Ordered By: Carol Moreno on 02-20-2023 HbA1c (Bld) [Mass fraction] 6.3 % Normal 4.6 - 7.1 [facility] Work Phone: No Panel InformationOrdered By: Antonia Jeffers on 02-06-2023 Prostate Specific Antigen Screen 1.17 ng/mL 0.00-4.00 [facility] Comment on above: This test was perfor med using the TPSA assay method for the[employer]lowtorchMod[employer] chemistry system. Values obtained with differentassay methods cannot be used interchangably.When changing PSA assays in the course of monitoring apatient, additional sequential testing should be carriedout to confirm baseline values. Blood Glucose , Office ([phone])Ordered By: Jorden Lacy on 10-01-2022 Glucose Glucometer (BldC) [Moles/Vol] 122 1 Normal [facility]; [facility] Work Phone: HgA1C , Office ([phone])Ordere d By: Jorden Lacy on 10-01-2022 HbA1c (Bld) [Mass fraction] 6.6 % Normal 4.6 - 7.1 [facility] Work Phone: Blood Glucose , Office ([phone])Ordered By: Alexa Rivera on 06-27-2022 Glucose Glucometer (BldC) [Moles/Vol] 123 1 Normal [facility]; [facility] Work Phone: HgA1C , Office ([phone])Ordere d By: Antonia Jeffers on 06-27-2022 HbA1c (Bld) [Mass fraction] 6.5 % Normal 4.6 - 7.1 [facility] Work Phone: INHOUSE COVID 19 (ONLY) RAPI D ([id number])Ordered By: Mulugeta Robbins on 03-28-2022 INHOUSE COVID 19 (ONLY) RAPID ([id number]) Negative Normal [facility] Work Phone: Inhouse FLU A+B DIRECT AG, ( RAPID) ([id number])Ordered By: Mulugeta Robbins on 03-28-2022 FLUAV+FLUBV Ag Ql (Unsp spec) Negative Normal [facility]; [facility] Work Phone: CNOVon 03-27-2022 CNOV Office Visit (UCWSTR ) FERNY STOUT ([id number]) 1950 M Date Time Provider Department 03/27/22 5:45 PM [facility]IN [facility]ICH[facility]ON [facility] During your visit today, we recorded the following information about you: Temperature Pulse Respiration Blood pressure 98.2 degrees 81/minute 18/minute 144/84 Weight 87.5 kg Kirstin Richardson APRN.CNP 03/27/2022 6:19 PM Signed Subjective HPI HPI Ferny Stout is a 71 year old male who presents today for CC of diarrhea X1 2 days ago, upper abd discomfort 4/10. This started 2 days ago. Has tried nothing for relief. Symptoms are worsened by nothing. Risk factors lifted heavy books few days ago. Denies vomiting, blood in stool, fever. No sick exposures. Hx of appendix removal. .Patient presents with: Diarrhea: Diarrhea and stomach cramping x 2 days History reviewed. No pertinent past medical history. No past surgical history on file. ALLERGIES Patient has no known allergies. MEDICATIONS lisinopril (ZESTRIL, PRINIVIL) 20 mg tablet Take 20 mg by mouth twice daily. metFORMIN (GLUCOPHAGE) 500 mg tablet Take 500 mg by mouth twice daily. pravastatin (PRAVACHOL) 10 mg tablet Take 10 mg by mouth. JANUVIA 100 mg tablet Take 100 mg by mouth once daily. No family history on file. Social History Tobacco Use Smoking status: Every Day Types: Cigarettes Smokeless tobacco: Never ROS Objective Blood pressure 144/84, pulse 81, temperature 36.8 ?C (98.2 ?F), temperature source Tympanic, resp. rate 18, weight 87.5 kg (192 lb 12.8 oz), SpO2 96 %. Physical Exam Constitutional: General: He is not in acute distress. Appearance: He is not toxic-appearing or diaphoretic. HENT: Head: Normocephalic and atraumatic. Cardiovascular: Rate and Rhythm: Normal rate and regular rhythm. Heart sounds: Normal heart sounds, S1 normal and S2 normal. Pulmonary: Effort: Pulmonary effort is normal. Breath sounds: Normal breath sounds. Abdominal: General: Abdomen is flat. Bowel sounds are normal. Palpations: Abdomen is soft. There is no hepatomegaly or splenomegaly. Tenderness: There is abdominal tenderness (slight) in the right upper quadrant, epigastric area and left upper quadrant. There is no guarding. Neurological: Mental Status: He is alert and oriented to person, place, and time. Gait: Gait is intact. ASSESSMENT/PLAN: 1. Upper abdominal pain - ICD9: 789.09, ICD10: R10.10 Stable tonight, discussed bland diet, push fluids, f/u with pcp in AM. Go to ER for severe/worsening s/s tonight. Kirstin Richardson APRN.MANAGER VIDEO Allergies As of Date: 03/27/2022 (No Known Allergies) Date Reviewed: 03/27/2022 Reviewed by: Kirstin Richardson APRN.MANAGER VIDEO - Fully Assessed Reason for Visit: Diarrhea [35] Cmt: Diarrhea and stomach cramping x 2 days Primary Visit Diagnosis:Upper abdominal pain [R10.10] Prescriptions as of 03/27/2022 - lisinopril (ZESTRIL, PRINIVIL) 20 mg tablet Take 20 mg by mouth twice daily. - metFORMIN (GLUCOPHAGE) 500 mg tablet Take 500 mg by mouth twice daily. - pravastatin (PRAVACHOL) 10 mg tablet Take 10 mg by mouth. - JANUVIA 100 mg tablet Take 100 mg by mouth once daily. Problem List As Of Date: 03/27/2022 (None) Encounter Status:Closed by KIRSTIN RICHARDSON on 03/27/22 Normal [facility] Blood Glucose , Office [phone] By: Antonia Jeffers on 03-14-2022 Glucose Glucometer (BldC) [Moles/Vol] 93 1 Normal [facility] Work Phone: HgA1C , Office [phone])Ordere d By: Antonia Jeffers on 03-14-2022 HbA1c (Bld) [Mass fraction] 6.5 % Normal 4.6 - 7.1 [facility] Work Phone: Absolute lymphocyte counton 03-11-2022 Lymphocytes Auto (Unsp spec) [#/Vol] 1.89 10*3/uL 0.83-4.51 [facility] Work Phone: Basophil percentageon 2021 Basophils/100 WBC (Bld) 0.5 % 0-1 [facility] Work Phone: Bilirubin [Mass/Vol] 0.30 mg/dL 0.20-1.00 [facility] Work Phone: Comment on above: For patients on eltr ombopag therapy, use of Dimension [place] TBIL is not recommended. Chloride [Moles/Vol] 107 mmol/L 98-107 [facility] Work Phone: Cholesterol [Mass/Vol] 153 mg/dL <200 [facility] Work Phone: Comment on above: <200 mg/dL Desirable 200-240 mg/dL Borderline >240 mg/dL High Risk Eosinophils/100 WBC (Bld) 1.6 % 0-5 [facility] Work Phone: Glucose [Mass/Vol] 132 mg/dL 74-106 [facility] Work Phone: Comment on above: Fasting Glucose resu lt greater than or equal to 126 mg/dL suggests DIABETES MELLITUS per A.D.A. criteria. Neutrophils (Bld) [#/Vol] 5.9 10*3/uL 2.0-7.7 [facility] Work Phone: Neutrophils/100 WBC (Bld) 69.1 % 47-70 [facility] Work Phone: Potassium [Moles/Vol] 4.1 mmol/L 3.5-5.1 [facility] Work Phone: Protein [Mass/Vol] 6.7 g/dL 6.4-8.2 [facility] Work Phone: Sodium [Moles/Vol] 137 mmol/L 136-145 [facility] Work Phone: Triglyceride [Mass/Vol] 121 mg/dL <199 [facility] Work Phone: Comment on above: The drugs N-Acetylcy steine and Metamizole may falsely depress this assay.Serum Triglycerides Reference Interval Normal <150 mg/dL Borderline high 150 - 199 mg/dL High 200 - 499 mg/dL Very High > or = 500 mg/dL WBC (Bld) [#/Vol] 8.6 10*3/uL 4.4-11.0 [facility] Work Phone: Bilirubin Test strip Ql (U)o n 03-11-2022 Bilirubin Ql (U) Negative Negative [facility] Work Phone: Blood erythrocytes count (nu mber/volume)on 03-11-2022 RBC (Bld) [#/Vol] 4.86 10*6/uL 4.6-6.2 [facility] Work Phone: Blood hemoglobin measurement (mass/volume)on 03-11-2022 Hemoglobin (Bld) [Mass/Vol] 15.3 g/dL 13.0-16.5 [facility] Work Phone: Blood lymphocytes/100 leukoc yteson 03-11-2022 Lymphocytes/100 WBC (Bld) 22.0 % 19-41 [facility] Work Phone: Blood monocytes/100 leukocyt eson 03-11-2022 Monocytes/100 WBC (Bld) 6.5 % 0-10 [facility] Work Phone: Blood platelet mean volumeon 03-11-2022 Platelet mean volume (Bld) [Entitic vol] 9.2 fL 6.2-12.0 [facility] Work Phone: Determination of erythrocyte mean corpuscular volume (MCV)on 03-11-2022 MCV (RBC) [Entitic vol] 94.4 fL 80-94 [facility] Work Phone: Hematocrit Auto (Bld) [Volum e fraction]on 03-11-2022 Hematocrit (Bld) [Volume fraction] 45.9 % 40-54 [facility] Work Phone: Ketones Test strip Ql (U)on 03-11-2022 Ketones Ql (U) Negative Negative [facility] Work Phone: Laboratory - Chemistry and C hemistry - challengeon 03-11-2022 ALP [Catalytic activity/Vol] 49 U/L 45-117 [facility] Work Phone: ALT [Catalytic activity/Vol] 33 U/L 16-61 [facility] Work Phone: CO2 [Moles/Vol] 30.0 mmol/L 21.0-32.0 [facility] Work Phone: Globulin (S) [Mass/Vol] 3.0 g/dL 2.2-4.2 [facility] Work Phone: Urea nitrogen/Creatinine [Mass ratio] 18.1 mg/mg 10-20 [facility] Work Phone: Laboratory - Hematology and Cell countson 03-11-2022 Erythrocyte distribution width (RBC) [Entitic vol] 47.0 fL 35.1-43.9 [facility] Work Phone: Erythrocyte distribution width (RBC) [Ratio] 13.5 % 11.6-14.6 [facility] Work Phone: Immature granulocytes/100 WBC (Bld) 0.300 % 0.0-0.9 [facility] Work Phone: Comment on above: IG% - Immature Granu locytes (promyelocytes, myelocytes and metamyelocytes) > 1% indicates that a LEFT SHIFT is Present. MCH (RBC) [Entitic mass] 31.5 pg 27.0-32.0 [facility] Work Phone: Nucleated RBC/100 WBC (Bld) [Ratio] 0 % 0-5 [facility] Work Phone: MCHC Auto (RBC) [Mass/Vol]on 03-11-2022 MCHC (RBC) [Mass/Vol] 33.3 g/dL 32-36 [facility] Work Phone: Nitrite Test strip Ql (U)on 03-11-2022 Nitrite Ql (U) Negative Negative [facility] Work Phone: No Panel Informationon 03-11 Estimated GFR (MDRD) Amer 127 mL/min >60 [facility] Work Phone: Comment on above: GFR Calc Estimated GFR (MDRD) Non-Af Amer 105 mL/min >60 [facility] Work Phone: Comment on above: Non- GFR Calc Hepatitis C Antibody Non-Reactive Nonreactive [facility] Work Phone: Comment on above: Non Reactive: < 0.8 Equivocal: >/= 0.8 to < 1.0 Reactive: >/= 1.0The [facility] recommends that a reactive/equivocal HCV antibody result be followed up by the HCV Nucleic Acid Amplificationtest ([id number]) Prostate Specific Antigen Screen 0.93 ng/mL 0.00-4.00 [facility] Work Phone: Comment on above: This test was perfor med using the TPSA assay method for [employer] chemistry system. Values obtained with differentassay methods cannot be used interchangably.When changing PSA assays in the course of monitoring apatient, additional sequential testing should be carriedout to confirm baseline values. Thyroid Stimulating Hormone (TSH) 1.74 uIU/mL 0.358-3.74 [facility] Work Phone: Urine Microalbumin/Creatini ne Ratio 19.9 mg/g CRE <30 [facility] Work Phone: Vitamin D 25-Hydroxy 51.1 ng/mL [facility] Work Phone: Comment on above: Vitamin D 25(OH) Sta tus Range Deficiency <20 ng/mL (50nmol/L) Insufficiency 20 - 30 ng/mL (50 - 75 nmol/L) Sufficiency 30 - 100 ng/mL (75 - 250 nmol/L) Toxicity >100 ng/mL (>250 nmol/L) Platelets bldon 03-11-2022 Platelets (Bld) [#/Vol] 259 10*3/uL 150-450 [facility] Work Phone: Protein Test strip Ql (U)on 03-11-2022 Protein Ql (U) 15 mg/dl Negative [facility] Work Phone: Serum or plasma albumin lucero urement (mass/volume)on 03-11-2022 Albumin [Mass/Vol] 3.7 g/dL 3.2-5.0 [facility] Work Phone: Serum or plasma albumin/glob ulin mass ratioon 03-11-2022 Albumin/Globulin [Mass ratio] 1.2 {ratio} 0.9-2.4 [facility] Work Phone: Serum or plasma calcium lucero urement (mass/volume)on 03-11-2022 Calcium [Mass/Vol] 8.7 mg/dL 8.5-10.1 [facility] Work Phone: Serum or plasma cholesterol in HDL measurement (mass/volume)on 03-11-2022 Cholesterol in HDL [Mass/Vol] 46 mg/dL >40 [facility] Work Phone: Comment on above: The drugs N-Acetylcy steine and Metamizole may falsely depress this assay. Reference Range HDL <40 mg/dL Low HDL Cholesterol HDL >or= 60 mg/dL High HDL Cholesterol Serum or plasma cholesterol in VLDL measurement (mass/volume)on 03-11-2022 Cholesterol in VLDL [Mass/Vol] 24 mg/dL 5-40 [facility] Work Phone: Serum or plasma creatinine m easurement (mass/volume)on 03-11-2022 Creatinine [Mass/Vol] 0.77 mg/dL 0.70-1.30 [facility] Work Phone: Comment on above: The validity of the calculated GFR & GFRAA in patients over 70 years has not been determined. Clinical correlation is essential. Serum or plasma low density lipoprotein (LDL) cholesterol measurement (mass/volume)on 03-11-2022 Cholesterol in LDL [Mass/Vol] 83 mg/dL 0-130 [facility] Work Phone: Serum or plasma urea nitroge n measurement (mass/volume)on 03-11-2022 Urea nitrogen [Mass/Vol] 14 mg/dL 7-18 [facility] Work Phone: Thin prep Papanicolaou smear with manual screeningon 03-11-2022 Thin prep Papanicolaou smear with manual screening 20 U/L 15-37 [facility] Work Phone: Thin prep Papanicolaou smear with manual screening 0 5-15 [facility] Work Phone: Thin prep Papanicolaou smear with manual screening 24.1 mg/L NO RANGE EST. [facility] Work Phone: Urine blood detectionon 02-16 RBC Ql (U) 25 /ul Negative [facility] Work Phone: Urine clarityon 03-11-2022 Clarity (U) Sl. Cloudy Clear [facility] Work Phone: Urine color determinationon 03-11-2022 Color (U) Yellow Yellow [facility] Work Phone: Urine creatinine measurement (mass/volume)on 03-11-2022 Creatinine (U) [Mass/Vol] 121.00 mg/dL NO RANGE EST. [facility] Work Phone: Urine glucose detectionon Glucose Ql (U) Normal mg/dl Normal [facility] Work Phone: Urine leukocyte esterase det ection by dipstickon 03-11-2022 Leukocyte esterase Test strip Ql (U) Negative Negative [facility] Work Phone: Urine pHon 03-11-2022 pH (U) 6.5 [pH] 5.0 - 8.0 [facility] Work Phone: Urine specific gravity measu rementon 03-11-2022 Specific gravity (U) [Rel density] 1.015 1.002-1.030 [facility] Work Phone: Urobilinogen Auto test strip Ql (U)on 03-11-2022 Urobilinogen Ql (U) Normal mg/dl Normal [facility] Work Phone: Blood Glucose , Office [phone])Ordered By: Esmer Larsen on 11-11-2021 Glucose Glucometer (BldC) [Moles/Vol] 110 1 Normal [facility] Work Phone: HgA1C , Office ([phone])Ordere d By: Esmer Larsen on 11-11-2021 HbA1c (Bld) [Mass fraction] 6.5 % Normal 4.6 - 7.1 [facility] Work Phone: Blood Glucose , Office [phone])Ordered By: Antonette Medina on 08-07-2021 Glucose Glucometer (BldC) [Moles/Vol] 125 1 Normal [facility] Work Phone: HgA1C , Office ([phone])Ordere d By: Antonette Medina on 08-07-2021 HbA1c (Bld) [Mass fraction] 6.4 % Normal 4.6 - 7.1 [facility] Work Phone: Absolute lymphocyte counton 08-05-2021 Lymphocytes Auto (Unsp spec) [#/Vol] 3.32 10*3/uL 0.83-4.51 [facility] Work Phone: Basophil percentageon 2021 Basophil percentage 0-5 SEEN /hpf [facility] Work Phone: Basophils/100 WBC (Bld) 0.5 % 0-1 [facility] Work Phone: Bilirubin [Mass/Vol] 0.40 mg/dL 0.20-1.00 [facility] Work Phone: Comment on above: For patients on eltr ombopag therapy, use of Dimension [place] TBIL is not recommended. Chloride [Moles/Vol] 108 mmol/L 98-107 [facility] Work Phone: Cholesterol [Mass/Vol] 129 mg/dL <200 [facility] Work Phone: Comment on above: <200 mg/dL Desirable 200-240 mg/dL Borderline >240 mg/dL High Risk Eosinophils/100 WBC (Bld) 3.6 % 0-5 [facility] Work Phone: Glucose [Mass/Vol] 120 mg/dL 74-106 [facility] Work Phone: Comment on above: Fasting Glucose resu lt from 100 to 125 mg/dL suggests IMPAIRED HOMEOSTASIS per A.D.A. criteria. Neutrophils (Bld) [#/Vol] 4.9 10*3/uL 2.0-7.7 [facility] Work Phone: Neutrophils/100 WBC (Bld) 52.6 % 47-70 [facility] Work Phone: Potassium [Moles/Vol] 4.0 mmol/L 3.5-5.1 [facility] Work Phone: Protein [Mass/Vol] 6.5 g/dL 6.4-8.2 [facility] Work Phone: Sodium [Moles/Vol] 140 mmol/L 136-145 [facility] Work Phone: Triglyceride [Mass/Vol] 155 mg/dL [facility] Work Phone: Comment on above: The drugs N-Acetylcy steine and Metamizole may falsely depress this assay.Serum Triglycerides Reference Interval Normal <150 mg/dL Borderline high 150 - 199 mg/dL High 200 - 499 mg/dL Very High > or = 500 mg/dL WBC (Bld) [#/Vol] 9.4 10*3/uL 4.4-11.0 [facility] Work Phone: Bilirubin Test strip Ql (U)o n 08-05-2021 Bilirubin Ql (U) Negative Negative [facility] Work Phone: Blood erythrocytes count (nu mber/volume)on 08-05-2021 RBC (Bld) [#/Vol] 4.82 10*6/uL 4.6-6.2 [facility] Work Phone: Blood hemoglobin measurement (mass/volume)on 08-05-2021 Hemoglobin (Bld) [Mass/Vol] 15.7 g/dL 13.0-16.5 [facility] Work Phone: Blood lymphocytes/100 leukoc yteson 08-05-2021 Lymphocytes/100 WBC (Bld) 35.4 % 19-41 [facility] Work Phone: Blood monocytes/100 leukocyt eson 08-05-2021 Monocytes/100 WBC (Bld) 7.8 % 0-10 [facility] Work Phone: Blood platelet mean volumeon 08-05-2021 Platelet mean volume (Bld) [Entitic vol] 8.6 fL 6.2-12.0 [facility] Work Phone: Determination of erythrocyte mean corpuscular volume (MCV)on 08-05-2021 MCV (RBC) [Entitic vol] 92.9 fL 80-94 [facility] Work Phone: Hematocrit Auto (Bld) [Volum e fraction]on 08-05-2021 Hematocrit (Bld) [Volume fraction] 44.8 % 40-54 [facility] Work Phone: Ketones Test strip Ql (U)on 08-05-2021 Ketones Ql (U) Negative Negative [facility] Work Phone: Laboratory - Chemistry and C hemistry - challengeon 08-05-2021 ALP [Catalytic activity/Vol] 49 U/L 45-117 [facility] Work Phone: ALT [Catalytic activity/Vol] 36 U/L 16-61 [facility] Work Phone: CO2 [Moles/Vol] 31.0 mmol/L 21.0-32.0 [facility] Work Phone: Globulin (S) [Mass/Vol] 3.0 g/dL 2.2-4.2 [facility] Work Phone: Urea nitrogen/Creatinine [Mass ratio] 13.0 mg/mg 10-20 [facility] Work Phone: Laboratory - Hematology and Cell countson 08-05-2021 Erythrocyte distribution width (RBC) [Entitic vol] 46.2 fL 35.1-43.9 [facility] Work Phone: Erythrocyte distribution width (RBC) [Ratio] 13.6 % 11.6-14.6 [facility] Work Phone: Immature granulocytes/100 WBC (Bld) 0.100 % 0.0-0.9 [facility] Work Phone: Comment on above: IG% - Immature Granu locytes (promyelocytes, myelocytes and metamyelocytes) > 1% indicates that a LEFT SHIFT is Present. MCH (RBC) [Entitic mass] 32.6 pg 27.0-32.0 [facility] Work Phone: Nucleated RBC/100 WBC (Bld) [Ratio] 0 % 0-5 [facility] Work Phone: MCHC Auto (RBC) [Mass/Vol]on 08-05-2021 MCHC (RBC) [Mass/Vol] 35.0 g/dL 32-36 [facility] Work Phone: Mucus LM Ql (Urine sed)on Mucus Ql (Urine sed) 0 SEEN /hpf [facility] Work Phone: Nitrite Test strip Ql (U)on 08-05-2021 Nitrite Ql (U) Negative Negative [facility] Work Phone: No Panel Informationon 08-05 Estimated GFR (MDRD) Amer 103 mL/min >60 [facility] Work Phone: Comment on above: GFR Calc Estimated GFR (MDRD) Non-Af Amer 86 mL/min >60 [facility] Work Phone: Comment on above: Non- GFR Calc Reactive Lymphocytes RARE [facility] Work Phone: Thyroid Stimulating Hormone (TSH) 3.71 uIU/mL 0.358-3.74 [facility] Work Phone: Urine Microalbumin/Creatini ne Ratio 6.0 mg/g CRE <30 [facility] Work Phone: Vitamin D 25-Hydroxy 82.3 ng/mL [facility] Work Phone: Comment on above: Vitamin D 25(OH) Sta tus Range Deficiency <20 ng/mL (50nmol/L) Insufficiency 20 - 30 ng/mL (50 - 75 nmol/L) Sufficiency 30 - 100 ng/mL (75 - 250 nmol/L) Toxicity >100 ng/mL (>250 nmol/L) Platelets bldon 08-05-2021 Platelets (Bld) [#/Vol] 232 10*3/uL 150-450 [facility] Work Phone: Protein Test strip Ql (U)on 08-05-2021 Protein Ql (U) Negative Negative [facility] Work Phone: Serum or plasma albumin lucero urement (mass/volume)on 08-05-2021 Albumin [Mass/Vol] 3.5 g/dL 3.2-5.0 [facility] Work Phone: Serum or plasma albumin/glob ulin mass ratioon 08-05-2021 Albumin/Globulin [Mass ratio] 1.2 {ratio} 0.9-2.4 [facility] Work Phone: Serum or plasma calcium lucero urement (mass/volume)on 08-05-2021 Calcium [Mass/Vol] 8.7 mg/dL 8.5-10.1 [facility] Work Phone: Serum or plasma cholesterol in HDL measurement (mass/volume)on 08-05-2021 Cholesterol in HDL [Mass/Vol] 34 mg/dL [facility] Work Phone: Comment on above: The drugs N-Acetylcy steine and Metamizole may falsely depress this assay. Reference Range HDL <40 mg/dL Low HDL Cholesterol HDL >or= 60 mg/dL High HDL Cholesterol Serum or plasma cholesterol in VLDL measurement (mass/volume)on 08-05-2021 Cholesterol in VLDL [Mass/Vol] 31 mg/dL 5-40 [facility] Work Phone: Serum or plasma creatinine m easurement (mass/volume)on 08-05-2021 Creatinine [Mass/Vol] 0.92 mg/dL 0.70-1.30 [facility] Work Phone: Comment on above: The validity of the calculated GFR & GFRAA in patients over 70 years has not been determined. Clinical correlation is essential. Serum or plasma low density lipoprotein (LDL) cholesterol measurement (mass/volume)on 08-05-2021 Cholesterol in LDL [Mass/Vol] 64 mg/dL 0-130 [facility] Work Phone: Serum or plasma urea nitroge n measurement (mass/volume)on 08-05-2021 Urea nitrogen [Mass/Vol] 12 mg/dL 7-18 [facility] Work Phone: Squamous epithelial cells de tection in urine sediment by light microscopyon 08-05-2021 Epithelial cells.squamous LM Ql (Urine sed) 0 SEEN /hpf [facility] Work Phone: Thin prep Papanicolaou smear with manual screeningon 08-05-2021 Thin prep Papanicolaou smear with manual screening 25 U/L 15-37 [facility] Work Phone: Thin prep Papanicolaou smear with manual screening 1 5-15 [facility] Work Phone: Thin prep Papanicolaou smear with manual screening 7.5 mg/L NO RANGE EST. [facility] Work Phone: Urine blood detectionon - RBC Ql (U) 25 /ul Negative [facility] Work Phone: RBC Ql (U) 0-5 SEEN /hpf [facility] Work Phone: Urine clarityon 08-05-2021 Clarity (U) Sl. Cloudy Clear [facility] Work Phone: Urine color determinationon 08-05-2021 Color (U) Yellow Yellow [facility] Work Phone: Urine creatinine measurement (mass/volume)on 08-05-2021 Creatinine (U) [Mass/Vol] 125.00 mg/dL NO RANGE EST. [facility] Work Phone: Urine glucose detectionon Glucose Ql (U) Normal mg/dl Normal [facility] Work Phone: Urine leukocyte esterase det ection by dipstickon 08-05-2021 Leukocyte esterase Test strip Ql (U) 25 /ul Negative [facility] Work Phone: Urine pHon 08-05-2021 pH (U) 6.5 [pH] [facility] Work Phone: Urine sediment bacteria coun t by microscopy (number/high power field)on 08-05-2021 Bacteria LM.HPF (Urine sed) [#/Area] 0 /[HPF] None Seen [facility] Work Phone: Urine specific gravity measu rementon 08-05-2021 Specific gravity (U) [Rel density] 1.010 [facility] Work Phone: Urobilinogen Auto test strip Ql (U)on 08-05-2021 Urobilinogen Ql (U) Normal mg/dl Normal [facility] Work Phone: Blood Glucose , Office ([phone])on 05-08-2021 Glucose Glucometer (BldC) [Moles/Vol] 88 1 Normal [facility] Work Phone: HgA1C , Office ([phone])on HbA1c (Bld) [Mass fraction] 6.5 % Normal 4.6 - 7.1 [facility] Work Phone: Blood Glucose , Office ([phone])Ordered By: Antonette Medina on 01-07-2021 Glucose Glucometer (BldC) [Moles/Vol] 115 1 Normal [facility] Work Phone: HgA1C , Office ([phone])Ordere d By: Antonette Medina on 01-07-2021 HbA1c (Bld) [Mass fraction] 6.3 % Normal 4.6 - 7.1 [facility] Work Phone: Blood Glucose , Office ([phone])Ordered By: Antonette Medina on 09-03-2020 Glucose Glucometer (BldC) [Moles/Vol] 181 1 Normal [facility] Work Phone: HgA1C , Office ([phone])Ordere d By: Antonette Carol on 09-03-2020 HbA1c (Bld) [Mass fraction] 6.1 % Normal 4.6 - 7.1 [facility] Work Phone: Blood Glucose , Office ([phone])Ordered By: Toya Heart on 02-02-2020 Glucose Glucometer (BldC) [Moles/Vol] 119 1 Normal [facility] Work Phone: HgA1C , Office ([phone])Ordere d By: Toya Heart on 02-02-2020 HbA1c (Bld) [Mass fraction] 6.2 % Normal 4.6 - 7.1 [facility] Work Phone: Blood Glucose , Office ([phone])Ordered By: Antonette Medina on 11-02-2019 Glucose Glucometer (BldC) [Moles/Vol] 77 1 Normal [facility] Work Phone: HgA1C , Office ([phone])Ordere d By: Verna Canchola on 11-02-2019 HbA1c (Bld) [Mass fraction] 6.0 % Normal 4.6 - 7.1 [facility] Work Phone: Blood Glucose , Office ([phone])Ordered By: Antonette Medina on 04-28-2019 Glucose Glucometer (BldC) [Moles/Vol] 104 1 Normal [facility] Work Phone: HgA1C , Office ([phone])Ordere d By: Antonia Jeffers on 04-28-2019 HbA1c (Bld) [Mass fraction] 5.0 % Normal 4.6 - 7.1 [facility] Work Phone: Basic Metabolic Panelon 03-18 Calcium [Mass/Vol] 7.6 mg/dL Low 8.4-10.4 [facility] Comment on above: Performed By: #### P T, LACT3, BMP3, HEMOG #### [address] Anion gap [Moles/Vol] 1 Normal [facility] Comment on above: Performed By: #### P T, LACT3, BMP3, HEMOG #### [facility] [address], [place] CO2 [Moles/Vol] 29 mmol/L Normal 22-30 [facility] Comment on above: Performed By: #### P T, LACT3, BMP3, HEMOG #### [place] [address] [address], [place] Creatinine [Mass/Vol] 0.61 mg/dL Normal 0.52-1.25 [facility] Comment on above: Performed By: #### P T, LACT3, BMP3, HEMOG #### [facility] [address] [place] [id number] GFR/1.73 sq M predicted among blacks MDRD (S/P/Bld) [Vol rate/Area] mL/min/{1.73_m2} Normal >60 [facility] Comment on above: Performed By: #### P T, LACT3, BMP3, HEMOG #### [place] [address] [address], [place] GFR/1.73 sq M predicted among non-blacks MDRD (S/P/Bld) [Vol rate/Area] mL/min/{1.73_m2} Normal >60 [facility] Comment on above: Result Comment: Sour ce- MDRD equation with creatinine calibration to IDMS(NKDEP) eGFR not recommended for drug dose adjustment Performed By: #### P T, LACT3, BMP3, HEMOG #### [place] [address] [address], [place] Glucose [Mass/Vol] 152 mg/dL High 70-100 [facility] Comment on above: Performed By: #### P T, LACT3, BMP3, HEMOG #### [address] [address] [address], [place] Urea nitrogen [Mass/Vol] 17 mg/dL Normal 7-20 [facility] Comment on above: Performed By: #### P T, LACT3, BMP3, HEMOG #### [address] [place] [address] Chloride [Moles/Vol] 108 mmol/L High 98-107 [facility] Comment on above: Performed By: #### P T, LACT3, BMP3, HEMOG #### [address] [address] [address], [place] Potassium [Moles/Vol] 3.7 mmol/L Normal 3.5-5.1 [facility] Comment on above: Performed By: #### P T, LACT3, BMP3, HEMOG #### [facility] [address] [place] [address] Sodium [Moles/Vol] 138 mmol/L Normal 135-145 [facility] Comment on above: Performed By: #### P T, LACT3, BMP3, HEMOG #### [facility] [address] [place] [address] Anion gap [Moles/Vol] 1 mmol/L [place], [place] Calcium [Mass/Vol] 7.6 mg/dL Low 8.4 - 10. 4 mg/dL [place] Chloride [Moles/Vol] 108 mmol/L High 98 - 10 7 mmol/L [place] CO2 [Moles/Vol] 29 mmol/L 22 - 30 mmol/L [place] Creatinine [Mass/Vol] 0.61 mg/dL 0.52 - 1.25 mg/dL [place] EGFR IF NonAfrican [place]ian >60.0 >60 mL/min [place] Comment on above: Source- MDRD equatio n with creatinine calibration to IDMS(NKDEP) eGFR not recommended for drug dose adjustment GFR/1.73 sq M predicted among blacks MDRD (S/P/Bld) [Vol rate/Area] mL/min/{1.73_m2} >60 mL/min [place] Glucose [Mass/Vol] 152 mg/dL High 70 - 100 mg/dL [place] Interpretation and review of laboratory results Abnormal [place] Potassium [Moles/Vol] 3.7 mmol/L 3.5 - 5.1 mmol/L [place] Sodium [Moles/Vol] 138 mmol/L 135 - 145 mmol/L [place] Urea nitrogen [Mass/Vol] 17 mg/dL 7 - 20 mg/dL [place] Test Performed by [facility], [address] [place] [address] [place], [place] CBCon 03-31-2019 Erythrocyte distribution width (RBC) [Ratio] 13.5 % 11.5 - 14.5 % [place] Hematocrit (Bld) [Volume fraction] 23.9 % Low 40 - 52 % [place] Hemoglobin (Bld) [Mass/Vol] 8.3 g/dL Low 13 - 18 g/dL [place] Interpretation and review of laboratory results Abnormal [place] MCH (RBC) [Entitic mass] 33.3 pg 26 - 34 pg [place] MCHC (RBC) [Mass/Vol] 34.6 % 32 - 36 % [place] MCV (RBC) [Entitic vol] 96.3 fL 80 - 98 fL [place] Platelet mean volume (Bld) [Entitic vol] 7.0 fL Low 7.4 - 10.4 fL [place] Platelets (Bld) [#/Vol] 176 10*3/uL 140 - 440 10*3/uL [place] RBC (Bld) [#/Vol] 2.49 10*6/uL Low 4.4 - 5.9 10*6/uL [place] WBC (Bld) [#/Vol] 8.5 10*3/uL 3.6 - 10.7 10*3/uL [place] Test Performed by [facility], [address] [place] [id number] [place] [address] Glucose,Bedsideon 03-31-2019 Glucose [Mass/Vol] 124 mg/dL High 70-100 [facility] Comment on above: Result Comment: Test performed by glucose meter. Results may be 10%-15% lower than serum/plasma values. (CLIA ID [id number]) Performed By: #### P T, LACT3, BMP3, HEMOG #### [address] [address] Glucose [Mass/Vol] 138 mg/dL High 70-100 [facility] Comment on above: Result Comment: Test performed by glucose meter. Results may be 10%-15% lower than serum/plasma values. (CLIA ID [id number]) Performed By: #### P T, LACT3, BMP3, HEMOG #### [address] [address] [address], [place] Hemogramon 03-31-2019 Erythrocyte distribution width (RBC) [Ratio] 13.5 % Normal 11.5-14.5 [facility] Comment on above: Performed By: #### P T, LACT3, BMP3, HEMOG #### [address] [address] [address] Hematocrit (Bld) [Volume fraction] 23.9 % Low 40.0-52.0 [facility] Comment on above: Performed By: #### P T, LACT3, BMP3, HEMOG #### [address] [address] [address] Hemoglobin (Bld) [Mass/Vol] 8.3 g/dL Low 13.0-18.0 [facility] Comment on above: Performed By: #### P T, LACT3, BMP3, HEMOG #### [address] [address] [address] MCH (RBC) [Entitic mass] 33.3 pg Normal 26.0-34.0 [facility] Comment on above: Performed By: #### P T, LACT3, BMP3, HEMOG #### [address] [address] MCHC (RBC) [Mass/Vol] 34.6 % Normal 32.0-36.0 [facility] Comment on above: Performed By: #### P T, LACT3, BMP3, HEMOG #### [address] [address] MCV (RBC) [Entitic vol] 96.3 fL Normal 80.0-98.0 [facility] Comment on above: Performed By: #### P T, LACT3, BMP3, HEMOG #### [address] [address] [address] Platelet mean volume (Bld) [Entitic vol] 7.0 fL Low 7.4-10.4 [facility] Comment on above: Performed By: #### P T, LACT3, BMP3, HEMOG #### [facility] [address], [place] Platelets (Bld) [#/Vol] 176 10*3/uL Normal 140-440 [facility] Comment on above: Performed By: #### P T, LACT3, BMP3, HEMOG #### [facility] [address], [place] RBC (Bld) [#/Vol] 2.49 10*6/uL Low 4.40-5.90 [facility] Comment on above: Performed By: #### P T, LACT3, BMP3, HEMOG #### [facility] [address], [place] WBC (Bld) [#/Vol] 8.5 10*3/uL Normal 3.6-10.7 [facility] Comment on above: Performed By: #### P T, LACT3, BMP3, HEMOG #### [facility] [address], [place] POCT Glucoseon 03-31-2019 Glucose [Mass/Vol] 124 mg/dL High 70 - 100 mg/dL [place] Comment on above: Test performed by gl ucose meter. Results may be 10%-15% lower than serum/plasma values. (CLIA ID [id number]) Interpretation and review of laboratory results Abnormal [facility] [place] [employer] [facility] Test Performed by [facility], [address] [place] [address] [place], [place] Glucose [Mass/Vol] 138 mg/dL High 70 - 100 mg/dL [place] Comment on above: Test performed by gl ucose meter. Results may be 10%-15% lower than serum/plasma values. (CLIA ID [id number]) Interpretation and review of laboratory results Abnormal [facility] [place] [place] Test Performed by [facility], [facility] [place] [address] [place] VL DUP LOWER EXTREMITY VENOU S BILATERALon 03-31-2019 [facility] -- Lower Extremity Venous Duplex Report Ordering Physician: Delia Mathew Coremaker Pipe: Yari Sellers [facility], T Interpreting Physician: Jarad Santamaria -- Location: [facility] -- Indications: Edema right calf. Edema left calf. Trauma patient. -- Conclusions 1. There is no evidence of acute deep or superficial venous thrombosis noted in the right lower extremity. 2. There is no evidence of acute deep or superficial venous thrombosis noted in the left lower extremity. 3. Large complex fluid collection seen medially in the left popliteal fossa. 4. Limited study below knee on right -- Study data: Complete lower extremity venous duplex evaluation. Grayscale 2D imaging, color Doppler imaging, and spectral Doppler analysis. Location: Vascular laboratory. Procedure: A vascular evaluation was performed. Images were obtained using a Adiana E9 vascular ultrasound machine. -- Venous flow and imaging: + +----- ---------+ -------+ -+ +Location +Overall +Properties +Comments + + +----- ---------+ -------+ -+ +R CFV +Patent +Normal phasicity; + + + + +spontaneous; normal + + + + +augmentation; + + + + +compressible + + + +----- ---------+ -------+ -+ +R saphenofemoral+Patent +Compressible + + +junction + + + + + +----- ---------+ -------+ -+ +R profunda +Patent +Normal phasicity; + + +femoral + +spontaneous; normal + + + + +augmentation + + + +----- ---------+ -------+ -+ +R FV - prox. +Patent +Compressible + + + +----- ---------+ -------+ -+ +R FV - mid +Patent +Normal phasicity; + + + + +spontaneous; normal + + + + +augmentation; + + + + +compressible + + + +----- ---------+ -------+ -+ +R FV - distal +Patent +Compressible + + + +----- ---------+ -------+ -+ +R popliteal +Patent +Normal phasicity; + + + + +spontaneous; normal + + + + +augmentation; + + + + +compressible + + + +----- ---------+ -------+ -+ +R gastrocnemius +Patent +Compressible + + + +----- ---------+ -------+ -+ +R PTV +Not visualized+ --------+Not seen due to + + + + +cast. + + +----- ---------+ -------+ -+ +R peroneal +Not visualized+ --------+Not seen due to + + + + +cast. + + +----- ---------+ -------+ -+ +R soleol +Not visualized+ --------+Not seen due to + + + + +cast. + + +----- ---------+ -------+ -+ +R GSV +Patent +Compressible + + + +----- ---------+ -------+ -+ +L CFV +Patent +Normal phasicity; + + + + +spontaneous; normal + + + + +augmentation; + + + + +compressible + + + +----- ---------+ -------+ -+ +L saphenofemoral+Patent +Compressible + + +junction + + + + + +----- ---------+ -------+ -+ +L profunda +Patent +Normal phasicity; + + +femoral + +spontaneous; normal + + + + +augmentation + + + +----- ---------+ -------+ -+ +L FV - prox. +Patent +Compressible + + + +----- ---------+ -------+ -+ +L FV - mid +Patent +Normal phasicity; + + + + +spontaneous; normal + + + + +augmentation; + + + + +compressible + + + +----- ---------+ -------+ -+ +L FV - distal +Patent +Compressible + + + +----- ---------+ -------+ -+ +L popliteal +Patent +Normal phasicity; +Large complex + + + +spontaneous; normal +fluid collection+ + + +augmentation; +seen medially in+ + + +compressible +the left + + + + +popliteal fossa.+ + +----- ---------+ -------+ -+ +L gastrocnemius +Patent +Compressible + + + +----- ---------+ -------+ -+ +L PTV +Patent +Compressible + + + +----- ---------+ -------+ -+ +L peroneal +Patent +Compressible + + + +----- ---------+ -------+ -+ +L soleol +Patent +Compressible + + + +----- ---------+ -------+ -+ +L GSV +Patent +Compressible + + + +----- ---------+ -------+ -+ Prepared and electronically signed by Jarad Santamaria 03/31/2019 13:11 [facility] [place], Ruel Banuelos Incoming Cardiology Results From Monique/Dianelys - 03/31/2019 1:11 PM EST [facility] -- Lower Extremity Venous Duplex Report Ordering Physician: Delia Mathew Coremaker Pipe: Yari Sellers RDMS, RVT Interpreting Physician: Jarad Santamaria -- Location: [facility] -- Indications: Edema right calf. Edema left calf. Trauma patient. -- Conclusions 1. There is no evidence of acute deep or superficial venous thrombosis noted in the right lower extremity. 2. There is no evidence of acute deep or superficial venous thrombosis noted in the left lower extremity. 3. Large complex fluid collection seen medially in the left popliteal fossa. 4. Limited study below knee on right -- Study data: Complete lower extremity venous duplex evaluation. Grayscale 2D imaging, color Doppler imaging, and spectral Doppler analysis. Location: Vascular laboratory. Procedure: A vascular evaluation was performed. Images were obtained using a Adiana E9 vascular ultrasound machine. -- Venous flow and imaging: + +----- ---------+ -------+ -+ +Location +Overall +Properties +Comments + + +----- ---------+ -------+ -+ +R CFV +Patent +Normal phasicity; + + + + +spontaneous; normal + + + + +augmentation; + + + + +compressible + + + +----- ---------+ -------+ -+ +R saphenofemoral+Patent +Compressible + + +junction + + + + + +----- ---------+ -------+ -+ +R profunda +Patent +Normal phasicity; + + +femoral + +spontaneous; normal + + + + +augmentation + + + +----- ---------+ -------+ -+ +R FV - prox. +Patent +Compressible + + + +----- ---------+ -------+ -+ +R FV - mid +Patent +Normal phasicity; + + + + +spontaneous; normal + + + + +augmentation; + + + + +compressible + + + +----- ---------+ -------+ -+ +R FV - distal +Patent +Compressible + + + +----- ---------+ -------+ -+ +R popliteal +Patent +Normal phasicity; + + + + +spontaneous; normal + + + + +augmentation; + + + + +compressible + + + +----- ---------+ -------+ -+ +R gastrocnemius +Patent +Compressible + + + +----- ---------+ -------+ -+ +R PTV +Not visualized+ --------+Not seen due to + + + + +cast. + + +----- ---------+ -------+ -+ +R peroneal +Not visualized+ --------+Not seen due to + + + + +cast. + + +----- ---------+ -------+ -+ +R soleol +Not visualized+ --------+Not seen due to + + + + +cast. + + +----- ---------+ -------+ -+ +R GSV +Patent +Compressible + + + +----- ---------+ -------+ -+ +L CFV +Patent +Normal phasicity; + + + + +spontaneous; normal + + + + +augmentation; + + + + +compressible + + + +----- ---------+ -------+ -+ +L saphenofemoral+Patent +Compressible + + +junction + + + + + +----- ---------+ -------+ -+ +L profunda +Patent +Normal phasicity; + + +femoral + +spontaneous; normal + + + + +augmentation + + + +----- ---------+ -------+ -+ +L FV - prox. +Patent +Compressible + + + +----- ---------+ -------+ -+ +L FV - mid +Patent +Normal phasicity; + + + + +spontaneous; normal + + + + +augmentation; + + + + +compressible + + + +----- ---------+ -------+ -+ +L FV - distal +Patent +Compressible + + + +----- ---------+ -------+ -+ +L popliteal +Patent +Normal phasicity; +Large complex + + + +spontaneous; normal +fluid collection+ + + +augmentation; +seen medially in+ + + +compressible +the left + + + + +popliteal fossa.+ + +----- ---------+ -------+ -+ +L gastrocnemius +Patent +Compressible + + + +----- ---------+ -------+ -+ +L PTV +Patent +Compressible + + + +----- ---------+ -------+ -+ +L peroneal +Patent +Compressible + + + +----- ---------+ -------+ -+ +L soleol +Patent +Compressible + + + +----- ---------+ -------+ -+ +L GSV +Patent +Compressible + + + +----- ---------+ -------+ -+ Prepared and electronically signed by Jarad Santamaria 03/31/2019 13:11 [place] VL Venous Duplex US Lower Ex t Bilateralon 03-31-2019 VL Venous Duplex US Lower Ext Bilateral Patient Name: FERNY STOUT Ultrasound Exam Date/Time 03/31/2019 09:21:46 EST Exam VL Venous Duplex US Lower Ext Bilateral Ordering Physician DELIA MATHEW Accession Number [id number] CPT4 Codes [id number] () Reason For Exam edema Report [facility] -- Lower Extremity Venous Duplex Report Ordering Physician: Delia Mathew Coremaker Pipe: Yari Sellers RDMS, RVT Interpreting Physician: Jarad Santamaria -- Location: [facility] -- Indications: Edema right calf. Edema left calf. Trauma patient. -- Conclusions 1. There is no evidence of acute deep or superficial venous thrombosis noted in the right lower extremity. 2. There is no evidence of acute deep or superficial venous thrombosis noted in the left lower extremity. 3. Large complex fluid collection seen medially in the left popliteal fossa. 4. Limited study below knee on right -- Study data: Complete lower extremity venous duplex evaluation. Grayscale 2D imaging, color Doppler imaging, and spectral Doppler analysis. Location: Vascular laboratory. Procedure: A vascular evaluation was performed. Images were obtained using a Adiana E9 vascular ultrasound machine. -- Venous flow and imaging: + +----- ---------+ -------+ -+ +Location +Overall +Properties +Comments + + +----- ---------+ -------+ -+ +R CFV +Patent +Normal phasicity; + + + + +spontaneous; normal + + + + +augmentation; + + + + +compressible + + + +----- ---------+ -------+ -+ +R saphenofemoral+Patent +Compressible + + +junction + + + + + +----- ---------+ -------+ -+ +R profunda +Patent +Normal phasicity; + + +femoral + +spontaneous; normal + + + + +augmentation + + + +----- ---------+ -------+ -+ +R FV - prox. +Patent +Compressible + + + +----- ---------+ -------+ -+ +R FV - mid +Patent +Normal phasicity; + + + + +spontaneous; normal + + + + +augmentation; + + + + +compressible + + + +----- ---------+ -------+ -+ +R FV - distal +Patent +Compressible + + + +----- ---------+ -------+ -+ +R popliteal +Patent +Normal phasicity; + + + + +spontaneous; normal + + + + +augmentation; + + + + +compressible + + + +----- ---------+ -------+ -+ +R gastrocnemius +Patent +Compressible + + + +----- ---------+ -------+ -+ +R PTV +Not visualized+ --------+Not seen due to + + + + +cast. + + +----- ---------+ -------+ -+ +R peroneal +Not visualized+ --------+Not seen due to + + + + +cast. + + +----- ---------+ -------+ -+ +R soleol +Not visualized+ --------+Not seen due to + + + + +cast. + + +----- ---------+ -------+ -+ +R GSV +Patent +Compressible + + + +----- ---------+ -------+ -+ +L CFV +Patent +Normal phasicity; + + + + +spontaneous; normal + + + + +augmentation; + + + + +compressible + + + +----- ---------+ -------+ -+ +L saphenofemoral+Patent +Compressible + + +junction + + + + + +----- ---------+ -------+ -+ +L profunda +Patent +Normal phasicity; + + +femoral + +spontaneous; normal + + + + +augmentation + + + +----- ---------+ -------+ -+ +L FV - prox. +Patent +Compressible + + + +----- ---------+ -------+ -+ +L FV - mid +Patent +Normal phasicity; + + + + +spontaneous; normal + + + + +augmentation; + + + + +compressible + + + +----- ---------+ -------+ -+ +L FV - distal +Patent +Compressible + + + +----- ---------+ -------+ -+ +L popliteal +Patent +Normal phasicity; +Large complex + + + +spontaneous; normal +fluid collection+ + + +augmentation; +seen medially in+ + + +compressible +the left + + + + +popliteal fossa.+ + +----- ---------+ -------+ -+ +L gastrocnemius +Patent +Compressible + + + +----- ---------+ -------+ -+ +L PTV +Patent +Compressible + + + +----- ---------+ -------+ -+ +L peroneal +Patent +Compressible + + + +----- ---------+ -------+ -+ +L soleol +Patent +Compressible + + + +----- ---------+ -------+ -+ +L GSV +Patent +Compressible + + + +----- ---------+ -------+ -+ Prepared and electronically signed by Jarad Santamaria 03/31/2019 13:11 Final Dictated: 03/31/2019 1:11 pm Dictating Physician: JARAD SANTAMARIA Signed Date and Time: 03/31/2019 1:11 pm Signed by: JARAD SANTAMARIA Normal [facility] Basic Metabolic Panelon 03-18 Anion gap [Moles/Vol] 2 Normal [facility] Comment on above: Performed By: #### P T, LACT3, BMP3, HEMOG #### [facility] [address] [place] [address] Calcium [Mass/Vol] 7.5 mg/dL Low 8.4-10.4 [facility] Comment on above: Performed By: #### P T, LACT3, BMP3, HEMOG #### [facility] [address] [place] [address] CO2 [Moles/Vol] 27 mmol/L Normal 22-30 [facility] Comment on above: Performed By: #### P T, LACT3, BMP3, HEMOG #### [facility] [address] [place] [address] Creatinine [Mass/Vol] 0.65 mg/dL Normal 0.52-1.25 [facility] Comment on above: Performed By: #### P T, LACT3, BMP3, HEMOG #### [facility] [address] [place] [address] GFR/1.73 sq M predicted among blacks MDRD (S/P/Bld) [Vol rate/Area] mL/min/{1.73_m2} Normal >60 [facility] Comment on above: Performed By: #### P T, LACT3, BMP3, HEMOG #### [address] [place] [address] GFR/1.73 sq M predicted among non-blacks MDRD (S/P/Bld) [Vol rate/Area] mL/min/{1.73_m2} Normal >60 [facility] Comment on above: Result Comment: Sour ce- MDRD equation with creatinine calibration to IDMS(NKDEP) eGFR not recommended for drug dose adjustment Performed By: #### P T, LACT3, BMP3, HEMOG #### [address] Glucose [Mass/Vol] 196 mg/dL High 70-100 [facility] Comment on above: Performed By: #### P T, LACT3, BMP3, HEMOG #### [address] [address] Urea nitrogen [Mass/Vol] 18 mg/dL Normal 7-20 [facility] Comment on above: Performed By: #### P T, LACT3, BMP3, HEMOG #### [address] [place] [address] Chloride [Moles/Vol] 109 mmol/L High 98-107 [facility] Comment on above: Performed By: #### P T, LACT3, BMP3, HEMOG #### [address] [place] [address] Potassium [Moles/Vol] 4.0 mmol/L Normal 3.5-5.1 [facility] Comment on above: Performed By: #### P T, LACT3, BMP3, HEMOG #### [facility] [address] [place] [address] Sodium [Moles/Vol] 138 mmol/L Normal 135-145 [facility] Comment on above: Performed By: #### P T, LACT3, BMP3, HEMOG #### [facility] [address] [place] [address] Anion gap [Moles/Vol] 2 mmol/L [place] Calcium [Mass/Vol] 7.5 mg/dL Low 8.4 - 10. 4 mg/dL [place] Chloride [Moles/Vol] 109 mmol/L High 98 - 10 7 mmol/L [place] CO2 [Moles/Vol] 27 mmol/L 22 - 30 mmol/L [place] Creatinine [Mass/Vol] 0.65 mg/dL 0.52 - 1.25 mg/dL [place] EGFR IF NonAfrican [place] >60.0 >60 mL/min [place] Comment on above: Source- MDRD equatio n with creatinine calibration to IDMS(NKDEP) eGFR not recommended for drug dose adjustment GFR/1.73 sq M predicted among blacks MDRD (S/P/Bld) [Vol rate/Area] mL/min/{1.73_m2} >60 mL/min [place] Glucose [Mass/Vol] 196 mg/dL High 70 - 100 mg/dL [place] Interpretation and review of laboratory results Abnormal [place] Potassium [Moles/Vol] 4.0 mmol/L 3.5 - 5.1 mmol/L [place] Sodium [Moles/Vol] 138 mmol/L 135 - 145 mmol/L [place] Urea nitrogen [Mass/Vol] 18 mg/dL 7 - 20 mg/dL [place] Test Performed by [facility], [address] [place] [address] [place] CBCon 03-30-2019 Erythrocyte distribution width (RBC) [Ratio] 13.1 % 11.5 - 14.5 % [place] Hematocrit (Bld) [Volume fraction] 27.9 % Low 40 - 52 % [place] Hemoglobin (Bld) [Mass/Vol] 9.6 g/dL Low 13 - 18 g/dL [place] Comment on above: repeated Interpretation and review of laboratory results Abnormal [place] MCH (RBC) [Entitic mass] 33.2 pg 26 - 34 pg [place] MCHC (RBC) [Mass/Vol] 34.4 % 32 - 36 % [place] MCV (RBC) [Entitic vol] 96.6 fL 80 - 98 fL [place] Platelet mean volume (Bld) [Entitic vol] 7.7 fL 7.4 - 10.4 fL [place] Platelets (Bld) [#/Vol] 201 10*3/uL 140 - 440 10*3/uL [place] RBC (Bld) [#/Vol] 2.89 10*6/uL Low 4.4 - 5.9 10*6/uL [place] WBC (Bld) [#/Vol] 8.5 10*3/uL 3.6 - 10.7 10*3/uL [place] Test Performed by [facility], [address] [place] [id number] [place] [address] Glucose,Bedsideon 03-30-2019 Glucose [Mass/Vol] 144 mg/dL High 70-100 [facility] Comment on above: Result Comment: Test performed by glucose meter. Results may be 10%-15% lower than serum/plasma values. (CLIA ID [id number]) Performed By: #### P T, LACT3, BMP3, HEMOG #### [address] [address] Glucose [Mass/Vol] 168 mg/dL High 70-100 [facility] Comment on above: Result Comment: Test performed by glucose meter. Results may be 10%-15% lower than serum/plasma values. (CLIA ID [id number]) Performed By: #### P T, LACT3, BMP3, HEMOG #### [address] Glucose [Mass/Vol] 135 mg/dL High 70-100 [facility] Comment on above: Result Comment: Test performed by glucose meter. Results may be 10%-15% lower than serum/plasma values. (CLIA ID [id number]) Performed By: #### P T, LACT3, BMP3, HEMOG #### [address] [place] Glucose [Mass/Vol] 164 mg/dL High 70-100 [facility] Comment on above: Result Comment: Test performed by glucose meter. Results may be 10%-15% lower than serum/plasma values. (CLIA ID [id number]) Performed By: #### P T, LACT3, BMP3, HEMOG #### [address] Hemogramon 03-30-2019 Erythrocyte distribution width (RBC) [Ratio] 13.1 % Normal 11.5-14.5 [facility] Comment on above: Performed By: #### P T, LACT3, BMP3, HEMOG #### [address] [place] Hematocrit (Bld) [Volume fraction] 27.9 % Low 40.0-52.0 [facility] Comment on above: Performed By: #### P T, LACT3, BMP3, HEMOG #### [address] [place] Hemoglobin (Bld) [Mass/Vol] 9.6 g/dL Low 13.0-18.0 [facility] Comment on above: Result Comment: repe ated Performed By: #### P T, LACT3, BMP3, HEMOG #### [address] [place] MCH (RBC) [Entitic mass] 33.2 pg Normal 26.0-34.0 [facility] Comment on above: Performed By: #### P T, LACT3, BMP3, HEMOG #### [address] MCHC (RBC) [Mass/Vol] 34.4 % Normal 32.0-36.0 [facility] Comment on above: Performed By: #### P T, LACT3, BMP3, HEMOG #### [address] MCV (RBC) [Entitic vol] 96.6 fL Normal 80.0-98.0 [facility] Comment on above: Performed By: #### P T, LACT3, BMP3, HEMOG #### [address] Platelet mean volume (Bld) [Entitic vol] 7.7 fL Normal 7.4-10.4 [facility] Comment on above: Performed By: #### P T, LACT3, BMP3, HEMOG #### [address] Platelets (Bld) [#/Vol] 201 10*3/uL Normal 140-440 [facility] Comment on above: Performed By: #### P T, LACT3, BMP3, HEMOG #### [address] RBC (Bld) [#/Vol] 2.89 10*6/uL Low 4.40-5.90 [facility] Comment on above: Performed By: #### P T, LACT3, BMP3, HEMOG #### [address] WBC (Bld) [#/Vol] 8.5 10*3/uL Normal 3.6-10.7 [facility] Comment on above: Performed By: #### P T, LACT3, BMP3, HEMOG #### [address] Otheron 03-30-2019 Test Performed by [facility], [address] [place] [address] [facility] [place], [place] POCT Glucoseon 03-30-2019 Glucose [Mass/Vol] 144 mg/dL High 70 - 100 mg/dL [facility]- [place], [place] Comment on above: Test performed by gl ucose meter. Results may be 10%-15% lower than serum/plasma values. (CLIA ID [id number]) Interpretation and review of laboratory results Abnormal [facility] [place] [place] Test Performed by [facility], [address] [place] [address] [facility] [place] Glucose [Mass/Vol] 168 mg/dL High 70 - 100 mg/dL [facility] [place] Comment on above: Test performed by gl ucose meter. Results may be 10%-15% lower than serum/plasma values. (CLIA ID [id number]) Interpretation and review of laboratory results Abnormal [facility] [place] Test Performed by [facility], [address] [place] [address] [facility], [place] Glucose [Mass/Vol] 135 mg/dL High 70 - 100 mg/dL [facility]- [place], [place] Comment on above: Test performed by gl ucose meter. Results may be 10%-15% lower than serum/plasma values. (CLIA ID [id number]) Interpretation and review of laboratory results Abnormal [facility] [place] [place] Test Performed by [facility], [address] [place] [address] [facility]- [place], [place] Glucose [Mass/Vol] 164 mg/dL High 70 - 100 mg/dL [facility] [place] Comment on above: Test performed by gl ucose meter. Results may be 10%-15% lower than serum/plasma values. (CLIA ID [id number]) Interpretation and review of laboratory results Abnormal [facility] [employer] [place], [place] TSH without Reflexon 019 Interpretation and review of laboratory results Abnormal [facility] [place] TSH Qn 0.371 u[IU]/mL Low 0.465 - 4.68 u[IU]/mL [facility] [employer]- [place], [place] Test Performed by [facility], [address] [place] [address] [facility], [place] Thyroid Stim. Hormoneon 03-18 Thyroid Stim. Hormone 0.371 u[IU]/mL Low 0.465-4.68 0 [facility] Comment on above: Performed By: #### P T, LACT3, BMP3, HEMOG #### [facility] [address] [place] [address] Vit D 25-OH, Totalon 019 Vit D 25-OH, Total 67 ng/mL Normal 30-100 [facility] Comment on above: Result Comment: Ther apy is based on measurement of Total 25- OHD with the following classification levels: Less than 20 ng/mL: Indicative of Vit D deficiency 20-30 ng/mL: Suggests Vit D insufficiency Optimal: Greater than or equal to 30 ng/mL Test performed by [employer] Competitive Immunoassay, measuring Total Vitamin D, not individual fractions. Performed By: #### P T, LACT3, BMP3, HEMOG #### [facility] [address] [place] [address] Vitamin B12on 03-30-2019 Cobalamin (Vitamin B12) [Mass/Vol] 477 pg/mL Normal 239-931 [place], [place] Comment on above: Performed By: #### P T, LACT3, BMP3, HEMOG #### [facility] [address] [place] [address] Vitamin D 25 Hydroxyon 03-30 Vit D, 25-Hydroxy 67 ng/mL 30 - 100 ng/mL [facility], [place] Comment on above: Therapy is based on measurement of Total 25-OHD with the following classification levels: Less than 20 ng/mL: Indicative of Vit D deficiency 20-30 ng/mL: Suggests Vit D insufficiency Optimal: Greater than or equal to 30 ng/mL Test performed by [employer] Competitive Immunoassay, measuring Total Vitamin D, not individual fractions. Test Performed by [facility], [address], [place], [place] [address] [facility], [place] Add on test from HISon 03-29 Add on test from HIS Accepted Normal [facility] Comment on above: Result Comment: Spec imen available & acceptable for analysis. Performed By: #### A DDON #### [facility] [address] [place] [address] Basic Metabolic Panelon 03-18 Calcium [Mass/Vol] 8.3 mg/dL Low 8.4-10.4 [place] Comment on above: Performed By: #### P T, LACT3, BMP3, HEMOG #### [place] [address] [address], [place] Glucose [Mass/Vol] 158 mg/dL High 70-100 [place] Comment on above: Performed By: #### P T, LACT3, BMP3, HEMOG #### [place] [address] [address], [place] Urea nitrogen [Mass/Vol] 18 mg/dL Normal 7-20 [place] Comment on above: Performed By: #### P T, LACT3, BMP3, HEMOG #### [place] [address] [address], [place] Anion gap [Moles/Vol] 6 Normal [facility] Comment on above: Performed By: #### P T, LACT3, BMP3, HEMOG #### [place] [address] [address], [place] CO2 [Moles/Vol] 26 mmol/L Normal 22-30 [place], [place] Comment on above: Performed By: #### P T, LACT3, BMP3, HEMOG #### [place] [address] [address], [place] Creatinine [Mass/Vol] 0.63 mg/dL Normal 0.52-1.25 [place], [place] Comment on above: Performed By: #### P T, LACT3, BMP3, HEMOG #### [place] [address] [address], [place] GFR/1.73 sq M predicted among blacks MDRD (S/P/Bld) [Vol rate/Area] mL/min/{1.73_m2} Normal >60 [place], [place] Comment on above: Performed By: #### P T, LACT3, BMP3, HEMOG #### [place] [address] [address], [place] GFR/1.73 sq M predicted among non-blacks MDRD (S/P/Bld) [Vol rate/Area] mL/min/{1.73_m2} Normal >60 [facility] Comment on above: Result Comment: Sour ce- MDRD equation with creatinine calibration to IDMS(NKDEP) eGFR not recommended for drug dose adjustment Performed By: #### P T, LACT3, BMP3, HEMOG #### [facility] [address], [place] Potassium [Moles/Vol] 4.3 mmol/L Normal 3.5-5.1 [place], [place] Comment on above: Performed By: #### P T, LACT3, BMP3, HEMOG #### [place] [address] [address], [place] Chloride [Moles/Vol] 108 mmol/L High 98-107 [place], [place] Comment on above: Performed By: #### P T, LACT3, BMP3, HEMOG #### [place] [address] [address], [place] Sodium [Moles/Vol] 140 mmol/L Normal 135-145 [place] Comment on above: Performed By: #### P T, LACT3, BMP3, HEMOG #### [place] [address] [address], [place] Anion gap [Moles/Vol] 6 mmol/L [place], [place] EGFR IF NonAfrican Burundian >60.0 >60 mL/min [place], [place] Comment on above: Source- MDRD equatio n with creatinine calibration to IDMS(NKDEP) eGFR not recommended for drug dose adjustment Anion gap [Moles/Vol] 7 Normal [facility] Comment on above: Performed By: #### P T, LACT3, BMP3, HEMOG #### [facility] [address], [place] Calcium [Mass/Vol] 8.1 mg/dL Low 8.4-10.4 [facility] Comment on above: Performed By: #### P T, LACT3, BMP3, HEMOG #### [place] [address] [address], [place] CO2 [Moles/Vol] 25 mmol/L Normal 22-30 [facility] Comment on above: Performed By: #### P T, LACT3, BMP3, HEMOG #### [place] [address] [address], [place] Glucose [Mass/Vol] 160 mg/dL High 70-100 [facility] Comment on above: Performed By: #### P T, LACT3, BMP3, HEMOG #### [place] [address] [address], [place] Urea nitrogen [Mass/Vol] 19 mg/dL Normal 7-20 [facility] Comment on above: Performed By: #### P T, LACT3, BMP3, HEMOG #### [place] [address] [place], [place] Creatinine [Mass/Vol] 0.71 mg/dL Normal 0.52-1.25 [facility] Comment on above: Performed By: #### P T, LACT3, BMP3, HEMOG #### [place] [address] [address] [place], [place] GFR/1.73 sq M predicted among blacks MDRD (S/P/Bld) [Vol rate/Area] mL/min/{1.73_m2} Normal >60 [facility] Comment on above: Performed By: #### P T, LACT3, BMP3, HEMOG #### [place] [address] [address] [place], [place] GFR/1.73 sq M predicted among non-blacks MDRD (S/P/Bld) [Vol rate/Area] mL/min/{1.73_m2} Normal >60 [facility] Comment on above: Result Comment: Sour ce- MDRD equation with creatinine calibration to IDMS(NKDEP) eGFR not recommended for drug dose adjustment Performed By: #### P T, LACT3, BMP3, HEMOG #### [place] [address] [address] [place], [place] Potassium [Moles/Vol] 4.1 mmol/L Normal 3.5-5.1 [facility] Comment on above: Performed By: #### P T, LACT3, BMP3, HEMOG #### [facility] [address] [place] [address] Sodium [Moles/Vol] 142 mmol/L Normal 135-145 [facility] Comment on above: Performed By: #### P T, LACT3, BMP3, HEMOG #### [facility] [address] [place] [address] Chloride [Moles/Vol] 111 mmol/L High 98-107 [facility] Comment on above: Performed By: #### P T, LACT3, BMP3, HEMOG #### [facility] [address] [place] [address] [facility]Con 03-29-2019 Erythrocyte distribution width (RBC) [Ratio] 13.0 % 11.5 - 14.5 % [place] Hematocrit (Bld) [Volume fraction] 38.9 % Low 40 - 52 % [place] Hemoglobin (Bld) [Mass/Vol] 13.2 g/dL 13 - 18 g/dL [place] Interpretation and review of laboratory results Abnormal [place] MCH (RBC) [Entitic mass] 32.7 pg 26 - 34 pg [place] MCHC (RBC) [Mass/Vol] 34.1 % 32 - 36 % [place] MCV (RBC) [Entitic vol] 96.1 fL 80 - 98 fL [place] Platelet mean volume (Bld) [Entitic vol] 7.0 fL Low 7.4 - 10.4 fL [place] Platelets (Bld) [#/Vol] 257 10*3/uL 140 - 440 10*3/uL [place] RBC (Bld) [#/Vol] 4.05 10*6/uL Low 4.4 - 5.9 10*6/uL [place] WBC (Bld) [#/Vol] 12.4 10*3/uL High 3.6 - 10.7 10*3/uL [place] Test Performed by [facility], [address] [place] [address] [facility] [place], [place] CR Ankle 3+ Views Righton CR Ankle 3+ Views Right Patient Name: FERNY STOUT Diagnostic Radiology Exam Date/Time 03/28/2019 23:33:09 EST Exam CR Ankle 3+ Views Right Ordering Physician [id number] DAMIEN, RANDY Accession Number [id number] CPT4 Codes 61504 () Reason For Exam pain Report RIGHT ANKLE: Indication: Traumatic fracture of the tibia and fibula. Views: Oblique and lateral (AP view included with right knee images) Comparison: Right knee same day; CT of the right lower extremity same day FINDINGS AND IMPRESSION: Casting material limits evaluation. The ankle mortise appears intact. Previously described complex fractures involving the tibia and fibula shaft(s) with surrounding soft tissue edema and swelling. Report Dictated on Final Dictated: 03/28/2019 11:47 pm Dictating Physician: MD RUSH JENNIFER R Signed Date and Time: 03/28/2019 11:49 pm Signed by: MD RUSH JENNIFER R Transcribed Date and Time: 03/28/2019 11:47 Normal [facility] CR Chest Portableon 03-29-20 19 CR Chest Portable Patient Name: FERNY STOUT Diagnostic Radiology Exam Date/Time 03/28/2019 23:36:40 EST Exam CR Chest Portable Ordering Physician [id number] DAMIEN, RANDY Accession Number [id number] CPT4 Codes 22907 () Reason For Exam pre-op Report CHEST PORTABLE: Indication: Preop Views: Portable frontal Comparison: None Time: 23:13 on 03/28/2019 FINDINGS: The trachea is midline. The cardiomediastinal silhouette is within normal limits. The lung volumes are low without confluent consolidation, pneumothorax, or pleural effusion. A right lower lung 5 mm nodule is present, possibly representing a calcified granuloma, recommend comparison to prior exams if available. IMPRESSION: No acute radiographic cardiopulmonary process. Report Dictated on Final Dictated: 03/28/2019 11:26 pm Dictating Physician: MD RUSH JENNIFER R Signed Date and Time: 03/28/2019 11:28 pm Signed by: MD RUSH JENNIFER R Transcribed Date and Time: 03/28/2019 11:26 Normal [facility] CR Knee 3 Views Righton 03-18 CR Knee 3 Views Right Patient Name: FERNY STOUT Diagnostic Radiology Exam Date/Time 03/28/2019 23:33:09 EST Exam CR Knee 3 Views Right Ordering Physician [id number] -GRACIELA, RANDY Accession Number [id number] CPT4 Codes 07795 () Reason For Exam pain Report RIGHT KNEE: Indication: Traumatic fracture of the tibia and fibula. Views: Lateral and AP Comparison: CT right lower extremity same day FINDINGS AND IMPRESSION: The tibial plateau appears smooth. The medial and femoral condyle appear intact. There is no sizable joint effusion. Previously described complex fractures involving the tibia and fibula shaft(s) with surrounding soft tissue edema and swelling. Report Dictated on Final Dictated: 03/28/2019 11:46 pm Dictating Physician: MD RUSH JENNIFER R Signed Date and Time: 03/28/2019 11:47 pm Signed by: MD RUSH JENNIFER R Transcribed Date and Time: 03/28/2019 11:46 Normal [facility] CR Tibia/Fibula 2 Views Righ ton 03-29-2019 CR Tibia/Fibula 2 Views Right Patient Name: FERNY STOUT Diagnostic Radiology Exam Date/Time 03/29/2019 20:09:46 EST Exam CR Tibia/Fibula 2 Views Right Ordering Physician MD RENEE ANDREW P. Accession Number [id number] CPT4 Codes 18857 () Reason For Exam post op Report RIGHT TIBIA AND FIBULA: Indication: Postop Views: AP and Lateral Comparison: CT right lower extremity prior day FINDINGS AND IMPRESSION: There has been interval placement of an intramedullary alena which traverses the complex tibial shaft fractures with 2 proximal transverse stabilization screws and 2 distal transverse stabilization screws. Postsurgical skin angelia are present. There is improved anatomical alignment of the transverse mid fibular shaft fracture with half shaft width overlap. Report Dictated on Final Dictated: 03/29/2019 8:56 pm Dictating Physician: MD RUSH JENNIFER R Signed Date and Time: 03/29/2019 8:59 pm Signed by: MD RUSH JENNIFER R Transcribed Date and Time: 03/29/2019 8:56 Normal [facility] CT Low Ext w/o Contrast Righ ton 03-29-2019 CT Low Ext w/o Contrast Right Patient Name: FERNY STOUT CT Exam Date/Time 03/28/2019 22:49:[address] Low Ext w/o Contrast Right Ordering Physician [id number] -GRACIELA, RANDY Accession Number [id number] CPT4 Codes 50538 () Reason For Exam tib fib fracture Report CT RIGHT LOWER EXTREMITY Indication: Trauma, tib-fib fracture Comparison: Imported right tibia-fibula radiograph dated 03/28/2019 at 7:33PM Technique: Multiple axial [address] images were obtained from the level of the distal femur to the level of the foot/toes without IV contrast and with coronal and sagittal reconstructs. FINDINGS: Traumatic multi-partate complex fracture through the proximal and mid shaft of the tibia. The distal tibia appears intact. Traumatic transverse fracture through the mid shaft of the fibula with fracture fragment overlap one shaft width (approximately 1.6 cm on coronal view). The ankle mortise appears intact. The talar dome appears smooth. The calcaneus appears intact with calcaneal spurring. The metatarsals visualized appear intact. IMPRESSION: Traumatic complex fracture of the shaft of the tibia. Traumatic transverse fracture with overlap of the shaft of the fibula. Report Dictated on Final Dictated: 03/28/2019 11:07 pm Dictating Physician: MD RUSH JENNIFER R Signed Date and Time: 03/28/2019 11:17 pm Signed by: MD RUSH JENNIFER R Transcribed Date and Time: 03/28/2019 11:07 Normal [facility] EKG 12 Leadon 03-29-2019 [facility] Incoming Cardiology Results From [facility] - 03/29/2019 11:50 AM EST [facility] Test Date: 2019-03-28 Pat Name: Ferny Stout Department: [facility] Room: 1328 Gender: M Machine I Cutter: KENNY : 1950 Requested By: Order Number: [id number] Reading MD: Nico Madera Measurements Intervals [place] Rate: 103 P: 65 MT: 181 QRS: 57 QRSD: 88 T: 97 QT: 340 QTc: 445 Interpretive Statements Sinus tachycardia Probable left atrial enlargement Anteroseptal infarct, age indeterminate Electronically Signed On 03-29-2019 11:49:31 EST by Nico ActiveO, [place] [facility] [place] Test Date: 2019-03-28 Pat Name: Ferny Stout Department: [facility] Room: 1328 Gender: M Machine I Cutter: KENNY : 1950 Requested By: Order Number: [id number] Reading MD: Nico Madera Measurements Intervals [place] Rate: 103 P: 65 MT: 181 QRS: 57 QRSD: 88 T: 97 QT: 340 QTc: 445 Interpretive Statements Sinus tachycardia Probable left atrial enlargement Anteroseptal infarct, age indeterminate Electronically Signed On 03-29-2019 11:49:31 EST by [facility] [place] Glucose,Bedsideon 03-29-2019 Glucose [Mass/Vol] 141 mg/dL High 70-100 [facility] Comment on above: Result Comment: Test performed by glucose meter. Results may be 10%-15% lower than serum/plasma values. (CLIA ID [id number]) Performed By: #### P T, LACT3, BMP3, HEMOG #### [employer] [address] [place] [address] Glucose [Mass/Vol] 113 mg/dL High 70-100 [facility] Comment on above: Result Comment: Test performed by glucose meter. Results may be 10%-15% lower than serum/plasma values. (CLIA ID [id number]) Performed By: #### P T, LACT3, BMP3, HEMOG #### [facility] [address] [place] [address] Glucose [Mass/Vol] 132 mg/dL High 70-100 [facility] Comment on above: Result Comment: Test performed by glucose meter. Results may be 10%-15% lower than serum/plasma values. (CLIA ID [id number]) Performed By: #### P T, LACT3, BMP3, HEMOG #### [place] [address] [address], [place] Glucose [Mass/Vol] 141 mg/dL High 70-100 [facility] Comment on above: Result Comment: Test performed by glucose meter. Results may be 10%-15% lower than serum/plasma values. (CLIA ID [id number]) Performed By: #### P T, LACT3, BMP3, HEMOG #### [place] [address] [address], [place] Glucose [Mass/Vol] 168 mg/dL High 70-100 [facility] Comment on above: Result Comment: Test performed by glucose meter. Results may be 10%-15% lower than serum/plasma values. (CLIA ID [id number]) Performed By: #### P T, LACT3, BMP3, HEMOG #### [place] [address] [address] [place], [place] Hemogramon 03-29-2019 Erythrocyte distribution width (RBC) [Ratio] 13.0 % Normal 11.5-14.5 [facility] Comment on above: Performed By: #### P T, LACT3, BMP3, HEMOG #### [place] [address] [address] [place], [place] Hematocrit (Bld) [Volume fraction] 38.9 % Low 40.0-52.0 [facility] Comment on above: Performed By: #### P T, LACT3, BMP3, HEMOG #### [place] [address] [address] [place], [place] Hemoglobin (Bld) [Mass/Vol] 13.2 g/dL Normal 13.0-18.0 [facility] Comment on above: Performed By: #### P T, LACT3, BMP3, HEMOG #### [place] [address] [address] [place], [place] MCH (RBC) [Entitic mass] 32.7 pg Normal 26.0-34.0 [facility] Comment on above: Performed By: #### P T, LACT3, BMP3, HEMOG #### [place] [address] [address] [place], [place] MCHC (RBC) [Mass/Vol] 34.1 % Normal 32.0-36.0 [facility] Comment on above: Performed By: #### P T, LACT3, BMP3, HEMOG #### [place] [address] [address] [place], [place] MCV (RBC) [Entitic vol] 96.1 fL Normal 80.0-98.0 [facility] Comment on above: Performed By: #### P T, LACT3, BMP3, HEMOG #### [place] [address] [address] [place], [place] Platelet mean volume (Bld) [Entitic vol] 7.0 fL Low 7.4-10.4 [facility] Comment on above: Performed By: #### P T, LACT3, BMP3, HEMOG #### [place] [address] [address] [place], [place] Platelets (Bld) [#/Vol] 257 10*3/uL Normal 140-440 [facility] Comment on above: Performed By: #### P T, LACT3, BMP3, HEMOG #### [place] [address] [address] [place], [place] RBC (Bld) [#/Vol] 4.05 10*6/uL Low 4.40-5.90 [facility] Comment on above: Performed By: #### P T, LACT3, BMP3, HEMOG #### [place] [address] [address] [place], [place] WBC (Bld) [#/Vol] 12.4 10*3/uL High 3.6-10.7 [facility] Comment on above: Performed By: #### P T, LACT3, BMP3, HEMOG #### [place] [address] [address] [place], [place] LACTIC ACID, PLASMAon 11-12- 2019 Lactate [Moles/Vol] 1.2 mmol/L 0.7 - 2 mmol/L [facility]- [place], [place] Test Performed by [facility], [address] [place] [address] [facility], [place] Lactic Acidon 03-29-2019 Lactate [Moles/Vol] 1.2 mmol/L Normal 0.7-2.0 [facility] Comment on above: Performed By: #### P T, LACT3, BMP3, HEMOG #### [facility] [address] [place] [address] Lactate [Moles/Vol] 1.7 mmol/L Normal 0.7-2.0 [facility] Comment on above: Performed By: #### P T, LACT3, BMP3, HEMOG #### [facility] [address] [place] [address] Otheron 03-29-2019 Interpretation and review of laboratory results Abnormal [facility] [employer]- [place] Test Performed by [facility], [facility] [place] [address] [facility], [place] POCT Glucoseon 03-29-2019 Glucose [Mass/Vol] 141 mg/dL High 70 - 100 mg/dL [place] Comment on above: Test performed by gl ucose meter. Results may be 10%-15% lower than serum/plasma values. (CLIA ID [id number]) Interpretation and review of laboratory results Abnormal [facility] [employer] [place] Test Performed by [facility] [place], [facility] [place] [address] [facility], [place] Glucose [Mass/Vol] 113 mg/dL High 70 - 100 mg/dL [facility], [place] Comment on above: Test performed by gl ucose meter. Results may be 10%-15% lower than serum/plasma values. (CLIA ID [id number]) Interpretation and review of laboratory results Abnormal [facility] [place] [place] Test Performed by [employer] [facility], [address] [place] [address] [facility], [place] Glucose [Mass/Vol] 132 mg/dL High 70 - 100 mg/dL [facility], [place] Comment on above: Test performed by gl ucose meter. Results may be 10%-15% lower than serum/plasma values. (CLIA ID [id number]) Interpretation and review of laboratory results Abnormal [place] Test Performed by [facility], [facility] [place], [place] [address] [place] [address] Glucose [Mass/Vol] 141 mg/dL High 70 - 100 mg/dL [place] Comment on above: Test performed by gl ucose meter. Results may be 10%-15% lower than serum/plasma values. (CLIA ID [id number]) Glucose [Mass/Vol] 168 mg/dL High 70 - 100 mg/dL [place] Comment on above: Test performed by gl ucose meter. Results may be 10%-15% lower than serum/plasma values. (CLIA ID [id number]) Interpretation and review of laboratory results Abnormal [place] Test Performed by [facility], [facility] [place] [address] [place] Prothrombin Timeon 9 INR Coag (PPP) [Relative time] 1.1 Normal 0.9-1.1 [facility] Comment on above: Result Comment: Zak mmended Anticoagulant Therapy: SEE BELOW ----- INR of 2.0 - 3.0 : - Prophylaxis of Venous Thrombosis (high-risk surgery) - Treatment of Venous Thrombosis - Treatment of Pulmonary Embolism (Includes tissue heart valves, Acute Myocardial Infarction to prevent systemic embolism, Valvular Heart Disease, and Atrial Fibrillation) ----- INR of 2.5 - 3.5 : - Mechanical Prosthetic Valves (high risk) - If oral anticoagulant therapy is used to prevent Myocardial Infarction Performed By: #### P T, LACT3, BMP3, HEMOG #### [facility] [employer] [place] [address] [address], [place] PT Coag (PPP) [Time] 11.1 s Normal 9.0-12.0 [facility] Comment on above: Result Comment: . Performed By: #### P T, LACT3, BMP3, HEMOG #### [facility] [employer] [place] [address] [address], [place] TS GELon 03-29-2019 TS GEL ABO Group: O Rh, Gel: POS Antibody Screen Gel: NEG Normal [facility] Comment on above: Performed By: #### T SGL #### [address] [address] XR TIBIA FIBULA RIGHT (2 VIE WS)on 03-29-2019 Patient Name: FERNY STOUT ---Diagnostic Radiology--- Exam Date/Time 03/29/2019 20:09:46 EST Exam CR Tibia/Fibula 2 Views Right Ordering Physician MD [place], MELBA Johnson Accession Number [id number] CPT4 Codes 28289 () Reason For Exam post op Report RIGHT TIBIA AND FIBULA: Indication: Postop Views: AP and Lateral Comparison: CT right lower extremity prior day FINDINGS AND IMPRESSION: There has been interval placement of an intramedullary alena which traverses the complex tibial shaft fractures with 2 proximal transverse stabilization screws and 2 distal transverse stabilization screws. Postsurgical skin angelia are present. There is improved anatomical alignment of the transverse mid fibular shaft fracture with half shaft width overlap. Report Dictated on --- Final --- Dictated: 03/29/2019 8:56 pm Dictating Physician: MD RUSH JENNIFER R Signed Date and Time: 03/29/2019 8:59 pm Signed by: MD RUSH JENNIFER R Transcribed Date and Time: 03/29/2019 8:56 [facility]- [place], [facility], [facility] Incoming Radiology Results From [facility] - 03/29/2019 9:01 PM EST Patient Name: FERNY STOUT ---Diagnostic Radiology--- Exam Date/Time 03/29/2019 20:09:46 EST Exam CR Tibia/Fibula 2 Views Right Ordering Physician MD GEORGIA, MELBA Johnson Accession Number [id number] CPT4 Codes 05151 () Reason For Exam post op Report RIGHT TIBIA AND FIBULA: Indication: Postop Views: AP and Lateral Comparison: CT right lower extremity prior day FINDINGS AND IMPRESSION: There has been interval placement of an intramedullary alena which traverses the complex tibial shaft fractures with 2 proximal transverse stabilization screws and 2 distal transverse stabilization screws. Postsurgical skin angelia are present. There is improved anatomical alignment of the transverse mid fibular shaft fracture with half shaft width overlap. Report Dictated on --- Final --- Dictated: 03/29/2019 8:56 pm Dictating Physician: MD RUSH JENNIFER R Signed Date and Time: 03/29/2019 8:59 pm Signed by: MD RUSH JENNIFER R Transcribed Date and Time: 03/29/2019 8:56 [place], [place] Add On Lab Teston 03-28-2019 Sodium [Moles/Vol] Accepted [place] Comment on above: Specimen available & acceptable for analysis. Test Performed by [address] [address] [place] Basic Metabolic Panelon 03-18 Anion gap [Moles/Vol] 7 mmol/L [place] Calcium [Mass/Vol] 8.1 mg/dL Low 8.4 - 10. 4 mg/dL [place] Chloride [Moles/Vol] 111 mmol/L High 98 - 10 7 mmol/L [place] CO2 [Moles/Vol] 25 mmol/L 22 - 30 mmol/L [place] Creatinine [Mass/Vol] 0.71 mg/dL 0.52 - 1.25 mg/dL [place] EGFR IF NonAfrican Burundian >60.0 >60 mL/min [place] Comment on above: Source- MDRD equatio n with creatinine calibration to IDFL(NKDEP) eGFR not recommended for drug dose adjustment GFR/1.73 sq M predicted among blacks MDRD (S/P/Bld) [Vol rate/Area] mL/min/{1.73_m2} >60 mL/min [place] Glucose [Mass/Vol] 160 mg/dL High 70 - 100 mg/dL [place] Interpretation and review of laboratory results Abnormal [place] Potassium [Moles/Vol] 4.1 mmol/L 3.5 - 5.1 mmol/L [place] Sodium [Moles/Vol] 142 mmol/L 135 - 145 mmol/L [place] Urea nitrogen [Mass/Vol] 19 mg/dL 7 - 20 mg/dL [place] Test Performed by [facility], [address] [place] [address] [place] CBCon 03-28-2019 Erythrocyte distribution width (RBC) [Ratio] 13.5 % 11.5 - 14.5 % [place] Hematocrit (Bld) [Volume fraction] 41.5 % 40 - 52 % [place] Hemoglobin (Bld) [Mass/Vol] 14.0 g/dL 13 - 18 g/dL [place] Interpretation and review of laboratory results Abnormal [place] MCH (RBC) [Entitic mass] 32.1 pg 26 - 34 pg [place] MCHC (RBC) [Mass/Vol] 33.6 % 32 - 36 % [place] MCV (RBC) [Entitic vol] 95.4 fL 80 - 98 fL [place] Platelet mean volume (Bld) [Entitic vol] 7.2 fL Low 7.4 - 10.4 fL [place] Platelets (Bld) [#/Vol] 276 10*3/uL 140 - 440 10*3/uL [place] RBC (Bld) [#/Vol] 4.35 10*6/uL Low 4.4 - 5.9 10*6/uL [place] WBC (Bld) [#/Vol] 16.3 10*3/uL High 3.6 - 10.7 10*3/uL [place] Test Performed by [facility], [address] [place] [address] [place] CT LOWER EXTREMITY RIGHT WO CONTRASTon 03-28-2019 Patient Name: FERNY STOUT ---CT--- Exam Date/Time 03/28/2019 22:49:[address] Low Ext w/o Contrast Right Ordering Physician [id number] DAMIEN, RANDY Accession Number [id number] CPT4 Codes 50307 () Reason For Exam tib fib fracture Report CT RIGHT LOWER EXTREMITY Indication: Trauma, tib-fib fracture Comparison: Imported right tibia-fibula radiograph dated 03/28/2019 at 7:33PM Technique: Multiple axial [address] images were obtained from the level of the distal femur to the level of the foot/toes without IV contrast and with coronal and sagittal reconstructs. FINDINGS: Traumatic multi-partate complex fracture through the proximal and mid shaft of the tibia. The distal tibia appears intact. Traumatic transverse fracture through the mid shaft of the fibula with fracture fragment overlap one shaft width (approximately 1.6 cm on coronal view). The ankle mortise appears intact. The talar dome appears smooth. The calcaneus appears intact with calcaneal spurring. The metatarsals visualized appear intact. IMPRESSION: Traumatic complex fracture of the shaft of the tibia. Traumatic transverse fracture with overlap of the shaft of the fibula. Report Dictated on --- Final --- Dictated: 03/28/2019 11:07 pm Dictating Physician: MD RUSH JENNIFER R Signed Date and Time: 03/28/2019 11:17 pm Signed by: MD RUSH JENNIFER R Transcribed Date and Time: 03/28/2019 11:07 [place] Nathalia Ca Incoming Radiology Results From [facility] - 03/28/2019 11:19 PM EST Patient Name: FERNY STOUT ---CT--- Exam Date/Time 03/28/2019 22:49:[address] Low Ext w/o Contrast Right Ordering Physician [id number] -GRACIELA, RANDY Accession Number [id number] CPT4 Codes 54028 () Reason For Exam tib fib fracture Report CT RIGHT LOWER EXTREMITY Indication: Trauma, tib-fib fracture Comparison: Imported right tibia-fibula radiograph dated 03/28/2019 at 7:33PM Technique: Multiple axial [address] images were obtained from the level of the distal femur to the level of the foot/toes without IV contrast and with coronal and sagittal reconstructs. FINDINGS: Traumatic multi-partate complex fracture through the proximal and mid shaft of the tibia. The distal tibia appears intact. Traumatic transverse fracture through the mid shaft of the fibula with fracture fragment overlap one shaft width (approximately 1.6 cm on coronal view). The ankle mortise appears intact. The talar dome appears smooth. The calcaneus appears intact with calcaneal spurring. The metatarsals visualized appear intact. IMPRESSION: Traumatic complex fracture of the shaft of the tibia. Traumatic transverse fracture with overlap of the shaft of the fibula. Report Dictated on --- Final --- Dictated: 03/28/2019 11:07 pm Dictating Physician: MD RUSH JENNIFER R Signed Date and Time: 03/28/2019 11:17 pm Signed by: MD RUSH JENNIFER R Transcribed Date and Time: 03/28/2019 11:07 [place] Hemogramon 03-28-2019 Erythrocyte distribution width (RBC) [Ratio] 13.5 % Normal 11.5-14.5 [facility] Comment on above: Performed By: #### P T, LACT3, BMP3, HEMOG #### [address] Hematocrit (Bld) [Volume fraction] 41.5 % Normal 40.0-52.0 [facility] Comment on above: Performed By: #### P T, LACT3, BMP3, HEMOG #### [address] Hemoglobin (Bld) [Mass/Vol] 14.0 g/dL Normal 13.0-18.0 [facility] Comment on above: Performed By: #### P T, LACT3, BMP3, HEMOG #### [address] MCH (RBC) [Entitic mass] 32.1 pg Normal 26.0-34.0 [facility] Comment on above: Performed By: #### P T, LACT3, BMP3, HEMOG #### [address] MCHC (RBC) [Mass/Vol] 33.6 % Normal 32.0-36.0 [facility] Comment on above: Performed By: #### P T, LACT3, BMP3, HEMOG #### [place] [address] [address] [place], [place] MCV (RBC) [Entitic vol] 95.4 fL Normal 80.0-98.0 [facility] Comment on above: Performed By: #### P T, LACT3, BMP3, HEMOG #### [place] [address] [address] [place], [place] Platelet mean volume (Bld) [Entitic vol] 7.2 fL Low 7.4-10.4 [facility] Comment on above: Performed By: #### P T, LACT3, BMP3, HEMOG #### [place] [address] [address] [place], [place] Platelets (Bld) [#/Vol] 276 10*3/uL Normal 140-440 [facility] Comment on above: Performed By: #### P T, LACT3, BMP3, HEMOG #### [place] [address] [place], [place] RBC (Bld) [#/Vol] 4.35 10*6/uL Low 4.40-5.90 [facility] Comment on above: Performed By: #### P T, LACT3, BMP3, HEMOG #### [place] [address] [address] [place], [place] WBC (Bld) [#/Vol] 16.3 10*3/uL High 3.6-10.7 [facility] Comment on above: Performed By: #### P T, LACT3, BMP3, HEMOG #### [place] [address] [address] [place], [place] Lactic Acid, Plasmaon 2018 Lactate [Moles/Vol] 1.7 mmol/L 0.7 - 2 mmol/L [place] Test Performed by [place] [address] [place], [place] [id number] [place] [address] Protime-INRon 03-28-2019 INR Coag (PPP) [Relative time] 1.1 {INR} [place] Comment on above: Recommended Anticoag ulant Therapy: SEE BELOW ----- INR of 2.0 - 3.0 : - Prophylaxis of Venous Thrombosis (high-risk surgery) - Treatment of Venous Thrombosis - Treatment of Pulmonary Embolism (Includes tissue heart valves, Acute Myocardial Infarction to prevent systemic embolism, Valvular Heart Disease, and Atrial Fibrillation) ----- INR of 2.5 - 3.5 : - Mechanical Prosthetic Valves (high risk) - If oral anticoagulant therapy is used to prevent Myocardial Infarction PT Coag (PPP) [Time] 11.1 s 9 - 12 s [place] Comment on above: . Test Performed by [facility], [facility] [place] [address] [place] TYPE AND SCREENon 03-28-2019 Sodium [Moles/Vol] Positive [place] Comment on above: Test Performed by [facility], [facility] [place] [address] Sodium [Moles/Vol] Negative [place] Comment on above: Test Performed by [facility], [facility] [place] [address] Sodium [Moles/Vol] O [place] Test Performed by [facility], [facility] [place] [address] [place] XR ANKLE RIGHT (MIN 3 VIEWS) on 03-28-2019 Patient Name: FERNY STOUT ---Diagnostic Radiology--- Exam Date/Time 03/28/2019 23:33:09 EST Exam CR Ankle 3+ Views Right Ordering Physician [id number] RANDY QUEZADA Accession Number [id number] CPT4 Codes 98129 () Reason For Exam pain Report RIGHT ANKLE: Indication: Traumatic fracture of the tibia and fibula. Views: Oblique and lateral (AP view included with right knee images) Comparison: Right knee same day; CT of the right lower extremity same day FINDINGS AND IMPRESSION: Casting material limits evaluation. The ankle mortise appears intact. Previously described complex fractures involving the tibia and fibula shaft(s) with surrounding soft tissue edema and swelling. Report Dictated on --- Final --- Dictated: 03/28/2019 11:47 pm Dictating Physician: MD RUSH JENNIFER R Signed Date and Time: 03/28/2019 11:49 pm Signed by: MD RUSH JENNIFER R Transcribed Date and Time: 03/28/2019 11:47 [place] [facility], [facility] Results From [facility] - 03/28/2019 11:51 PM EST Patient Name: FERNY STOUT ---Diagnostic Radiology--- Exam Date/Time 03/28/2019 23:33:09 EST Exam CR Ankle 3+ Views Right Ordering Physician [id number] DAMIEN, RANDY Accession Number [id number] CPT4 Codes 27467 () Reason For Exam pain Report RIGHT ANKLE: Indication: Traumatic fracture of the tibia and fibula. Views: Oblique and lateral (AP view included with right knee images) Comparison: Right knee same day; CT of the right lower extremity same day FINDINGS AND IMPRESSION: Casting material limits evaluation. The ankle mortise appears intact. Previously described complex fractures involving the tibia and fibula shaft(s) with surrounding soft tissue edema and swelling. Report Dictated on --- Final --- Dictated: 03/28/2019 11:47 pm Dictating Physician: MD RUSH JENNIFER R Signed Date and Time: 03/28/2019 11:49 pm Signed by: MD RUSH JENNIFER R Transcribed Date and Time: 03/28/2019 11:47 [facility]20 [place], [facility] Incoming Radiology Results From [facility] - 03/28/2019 11:37 PM EST Patient Name: FERNY STOUT ---Diagnostic Radiology--- Exam Date/Time 03/28/2019 23:36:40 EST Exam CR Chest Portable Ordering Physician [id number] DAMIEN, RANDY Accession Number [id number] CPT4 Codes 47722 () Reason For Exam pre-op Report CHEST PORTABLE: Indication: Preop Views: Portable frontal Comparison: None Time: 23:13 on 03/28/2019 FINDINGS: The trachea is midline. The cardiomediastinal silhouette is within normal limits. The lung volumes are low without confluent consolidation, pneumothorax, or pleural effusion. A right lower lung 5 mm nodule is present, possibly representing a calcified granuloma, recommend comparison to prior exams if available. IMPRESSION: No acute radiographic cardiopulmonary process. Report Dictated on --- Final --- Dictated: 03/28/2019 11:26 pm Dictating Physician: MD RUSH JENNIFER R Signed Date and Time: 03/28/2019 11:28 pm Signed by: MD RUSH JENNIFER R Transcribed Date and Time: 03/28/2019 11:26 [place] Patient Name: FERNY STOUT ---Diagnostic Radiology--- Exam Date/Time 03/28/2019 23:36:40 EST Exam CR Chest Portable Ordering Physician [id number] QUEZADA, RANDY Accession Number [id number] CPT4 Codes 44947 () Reason For Exam pre-op Report CHEST PORTABLE: Indication: Preop Views: Portable frontal Comparison: None Time: 23:13 on 03/28/2019 FINDINGS: The trachea is midline. The cardiomediastinal silhouette is within normal limits. The lung volumes are low without confluent consolidation, pneumothorax, or pleural effusion. A right lower lung 5 mm nodule is present, possibly representing a calcified granuloma, recommend comparison to prior exams if available. IMPRESSION: No acute radiographic cardiopulmonary process. Report Dictated on --- Final --- Dictated: 03/28/2019 11:26 pm Dictating Physician: MD RUSH JENNIFER R Signed Date and Time: 03/28/2019 11:28 pm Signed by: MD RUSH JENNIFER R Transcribed Date and Time: 03/28/2019 11:26 [place] XR KNEE RIGHT (3 VIEWS)on Patient Name: FERNY STOUT ---Diagnostic Radiology--- Exam Date/Time 03/28/2019 23:33:09 EST Exam CR Knee 3 Views Right Ordering Physician [id number] DAMIEN, RANDY Accession Number [id number] CPT4 Codes 50222 () Reason For Exam pain Report RIGHT KNEE: Indication: Traumatic fracture of the tibia and fibula. Views: Lateral and AP Comparison: CT right lower extremity same day FINDINGS AND IMPRESSION: The tibial plateau appears smooth. The medial and femoral condyle appear intact. There is no sizable joint effusion. Previously described complex fractures involving the tibia and fibula shaft(s) with surrounding soft tissue edema and swelling. Report Dictated on --- Final --- Dictated: 03/28/2019 11:46 pm Dictating Physician: MD RUSH JENNIFER R Signed Date and Time: 03/28/2019 11:47 pm Signed by: MD RUSH JENNIFER R Transcribed Date and Time: 03/28/2019 11:46 [place], [facility] Incoming Radiology Results From [facility] - 03/28/2019 11:49 PM EST Patient Name: FERNY STOUT ---Diagnostic Radiology--- Exam Date/Time 03/28/2019 23:33:09 EST Exam CR Knee 3 Views Right Ordering Physician [id number] -GRACIELA, RANDY Accession Number [id number] CPT4 Codes 25027 () Reason For Exam pain Report RIGHT KNEE: Indication: Traumatic fracture of the tibia and fibula. Views: Lateral and AP Comparison: CT right lower extremity same day FINDINGS AND IMPRESSION: The tibial plateau appears smooth. The medial and femoral condyle appear intact. There is no sizable joint effusion. Previously described complex fractures involving the tibia and fibula shaft(s) with surrounding soft tissue edema and swelling. Report Dictated on --- Final --- Dictated: 03/28/2019 11:46 pm Dictating Physician: MD RUSH JENNIFER R Signed Date and Time: 03/28/2019 11:47 pm Signed by: MD RUSH JENNIFER R Transcribed Date and Time: 03/28/2019 11:46 [facility], [place] Blood Glucose , Office ([phone])Ordered By: Verna Canchola on 12-23-2018 Glucose Glucometer (BldC) [Moles/Vol] 98 1 Normal [facility] Work Phone: HgA1C , Office ([phone])Ordere d By: Telma Lafleur on 12-23-2018 HbA1c (Bld) [Mass fraction] 6.4 % Normal 4.6 - 7.1 [facility] Work Phone: Blood Glucose , Office ([phone])Ordered By: Antonette Medina on 08-30-2018 Glucose Glucometer molar conc (BldC) 111 1 Normal [facility] Work Phone: HgA1C , Office ([phone])Ordere d By: Antonette Medina on 08-30-2018 Hemoglobin A1c/Hemoglobin.total mass fraction (Bld) 6.3 % Normal 4.6 - 7.1 [facility] Work Phone: CBC W/Diff, AutomatedOrdered By: Quality Compliance Coordinator on 08-26-2018 Absolute Neut 4.8 {X10_3/uL} Normal 2.0-7.7 Compreh ens[facility] Work Phone: Comment on above: [facility] [address] [place], [place], [phone] Basophils/100 WBC (Bld) 0.2 % Normal 0-1 [facility] Work Phone: Comment on above: [facility] [address] [place], [place], [phone] Eosinophils/100 WBC (Bld) 2.4 % Normal 0-5 [facility] Work Phone: Comment on above: [facility] [address] [place], [place], [phone] Erythrocyte distribution width Ratio (RBC) 13.6 % Normal 11.6-14.6 [facility] Work Phone: Comment on above: [facility] [address] [place], [place], [phone] Hematocrit Volume Fraction (Bld) 46.1 % Normal 40-54 [facility] Work Phone: Comment on above: [facility] [address] [place], [place], [phone] Hemoglobin mass conc (Bld) 15.9 g/dL Normal 13.0-16.5 [facility] Work Phone: Comment on above: [facility] [address] [place], [address] IM GRAN % 0.100 % Normal 0.0-0.9 [facility] Work Phone: Comment on above: IG% - Immature Granu locytes (promyelocytes, myelocytes andmetamyelocytes) > 1% indicates that a LEFT SHIFT is Present. [facility] [address] [place], [address] Lymphocytes #/vol (Bld) 2.88 {X10_3/ul} Normal 0.83-4.51 [facility] Work Phone: Comment on above: [facility] [address] [place], [address] Lymphocytes/100 WBC (Bld) 33.8 % Normal 19-41 [facility] Work Phone: Comment on above: [facility] [address] [place], [address] MCH Entitic mass (RBC) 32.2 pg Abnormal 27.0-32.0 [facility] Work Phone: Comment on above: [facility] [address] [place], [address] MCHC mass conc (RBC) 34.5 {g/gl} Normal 32-36 [facility] prehensive Internal Medicine Work Phone: Comment on above: [facility] [address] [place], [address] MCV Entitic volume (RBC) 93.3 fL Normal 80-94 [facility] Work Phone: Comment on above: [facility] [address] [place], [address] Monocytes/100 WBC (Bld) 6.9 % Normal 0-10 [facility] Work Phone: Comment on above: [facility] [address] [place], [address] Neutrophils/100 WBC (Bld) 56.6 % Normal 47-70 [facility] Work Phone: Comment on above: [facility] [address] [place], [address] Platelet mean volume Entitic volume (Bld) 9.1 fL Normal 6.2-12.0 [facility] Work Phone: Comment on above: [facility] [address] [place], [address] Platelets #/vol (Bld) 232 10*3/uL Normal 150-450 Co [facility] Work Phone: Comment on above: [facility] [address] [place], [address] RBC #/vol (Bld) 4.94 {M/mm3} Normal 4.6-6.2 Com[facility]h [facility] Work Phone: Comment on above: [facility] [address] [place], [address] RDW SD 45.2 fL Abnormal 35.1-43.9 [facility] Work Phone: Comment on above: [facility] [address] [place], [address] WBC #/vol (Bld) 8.5 10*3/uL Normal 4.4-11.0 Comprehe ns[facility] Work Phone: Comment on above: [facility] [address] [place], [address] Comprehensive Metabolic Prof ilOrdered By: Quality Compliance Coordinator on 08-26-2018 Comprehensive metabolic 2000 panel 6.9 g/dL Normal 6.4-8.2 [facility] Work Phone: Comment on above: [facility] [address] [place], [address] Comprehensive metabolic 2000 panel 31 U/L Normal 16-61 Comprehensi [facility] Work Phone: Comment on above: [facility] [address] [place], [address] Comprehensive metabolic 2000 panel 8.4 mg/dL Abnormal 8.5-10.1 Compre[facility]si [facility] Work Phone: Comment on above: [facility] [address] [place], [place], [phone] Comprehensive metabolic 2000 panel 1.2 {RATIO} Normal 0.9-2.4 Comprehensi ve [facility] Work Phone: Comment on above: [facility] [address] [place], [address] Comprehensive metabolic 2000 panel 0.50 mg/dL Normal 0.20-1.00 Comprehensi ve [facility] Work Phone: Comment on above: [facility] [address] [place], [address] Comprehensive metabolic 2000 panel 43 U/L Abnormal 45-117 Compre[facility]si [facility] Work Phone: Comment on above: [facility] [address] [place], [address] Comprehensive metabolic 2000 panel 140 mmol/L Normal 136-145 Compre[facility]si [facility] Work Phone: Comment on above: [facility] [address] [place], [place], [phone] Comprehensive metabolic 2000 panel 19.8 {RATIO} Normal 10-20 [facility]si [facility] Work Phone: Comment on above: [facility] [address] [place], [address] Comprehensive metabolic 2000 panel 3.7 g/dL Normal 3.2-5.0 Compre[facility]si ve [facility] Work Phone: Comment on above: [facility] [address] [place], [place], [phone] Comprehensive metabolic 2000 panel 142 mL/min Normal Comprehensi [facility] Work Phone: Comment on above: GFR Calc [facility] [address] [place], [place], [address] Comprehensive metabolic 2000 panel 22 U/L Normal 15-37 [facility] Work Phone: Comment on above: [facility] [address] [place], [place], [phone] Comprehensive metabolic 2000 panel 117 mL/min Normal [facility] Work Phone: Comment on above: Non- GFR Calc [facility] [address] [place], [place], [phone] Comprehensive metabolic 2000 panel 0.71 mg/dL Normal 0.70-1.30 [facility] Work Phone: Comment on above: The validity of the calculated GFR AND GFRAA in patients over70 years has not been determined. Clinical correlation isessential. [facility] [address] [place], [address] Comprehensive metabolic 2000 panel 14 mg/dL Normal 7-18 Compre[facility]si [facility] Work Phone: Comment on above: [facility] [address] [place], [place], [phone] Comprehensive metabolic 2000 panel 91 mg/dL Normal 74-106 Compre[facility]si [facility] Work Phone: Comment on above: Please note revised GLUCOSE reference range nozyqrtau82/02/2018. [facility] [address] [place], [place], [phone] Comprehensive metabolic 2000 panel 6 1 Normal 5-15 Comprehensi ve [facility] Work Phone: Comment on above: [facility] [address] [place], [place], [phone] Comprehensive metabolic 2000 panel 27.0 mmol/L Normal 21.0-32.0 Comprehensi ve Internal Medicine Work Phone: Comment on above: [facility] [address] [place], [place], [phone] Comprehensive metabolic 2000 panel 3.2 g/dL Normal 2.2-4.2 Comprehensi ve Internal Medicine Work Phone: Comment on above: [facility] [address] [place], [place], [phone] Comprehensive metabolic 2000 panel 107 mmol/L Normal 98-107 Comprehensi ve Internal Medicine Work Phone: Comment on above: [facility] [address] [place], [place], [phone] Comprehensive metabolic 2000 panel 3.9 mmol/L Normal 3.5-5.1 Comprehensi ve Internal Medicine Work Phone: Comment on above: [facility] [address] [place], [place], [id number] MicroalbOrdered By: Tammy granados on 08-26-2018 Microalb 31.1 mg/L Normal Comprehensive Internal Medicine Work Phone: Comment on above: [facility] [address] [place], [place], [phone] Microalb 13.9 {mg/g_CRE} Normal Comprehen sive Internal Medicine Work Phone: Comment on above: [facility] [address] [place], [place], [phone] Microalb 223.00 mg/dL Normal Comprehensiv e Internal Medicine Work Phone: Comment on above: [facility] [address] [place], [address] NMR LipoprofileOrdered By: Gifty packer Paid Search Specialist on 08-26-2018 NMR Lipoprofile 578 nmol/L Abnormal [facility] Internal Medicine Work Phone: Comment on above: [facility] (refer to re port for specific site)refer to report for address and phone number NMR Lipoprofile 20.3 nm Abnormal [facility] Internal Medicine Work Phone: Comment on above: INTERPRETATIVE INFORMATION PARTICLE CONCENTRATION AND SIZE <--Lower CVD Risk Higher CVD Risk--> LDL AND HDL PARTICLES Percentile in Reference Population HDL-P (total) High 75th 50th 25th Low >34.9 34.9 30.5 26.7 <26.7 Small LDL-P Low 25th 50th 75th High <117 117 527 839 >839 LDL Size <-Large (Pattern A)-> <-Small (Pattern B)-> 23.0 20.6 20.5 19.0 Small LDL-P and LDL Size are associated with CVD risk, butnot after LDL-P is taken into account.These assays were developed and their performancecharacteristics determined by [employer]. These assayshave not been cleared by the [place] Food and DrugAdministration. The clinical utility of these laboratoryvalues have not been fully established. [facility] (refer to re port for specific site)refer to report for address and phone number NMR Lipoprofile 140 mg/dL Normal 0-149 [facility] Internal Medicine Work Phone: Comment on above: [facility] (refer to re port for specific site)refer to report for address and phone number NMR Lipoprofile 66 1 Abnormal [facility] Work Phone: Comment on above: INSULIN RESISTANCE Marcos OVALLE <--Insulin Sensitive Insulin Resistant--> Percentile in Reference PopulationInsulin Resistance ScoreLP-IR Score Low 25th 50th 75th High <27 27 45 63 >63LP-IR Score is inaccurate if patient is non-fasting.The LP-IR score is a laboratory developed index that hasbeen associated with insulin resistance and diabetes riskand should be used as one component of a physician'sclinical assessment. The LP-IR score listed above has notbeen cleared by the [place] Food and Drug Administration.Performed at: - [facility] [address] [id number] Director: Blanca Morfin MD, Phone: [phone] [facility] (refer to re port for specific site)refer to report for address and phone number NMR Lipoprofile 31.0 umol/L Normal Comprehe [facility] Internal Medicine Work Phone: Comment on above: [facility] (refer to re port for specific site)refer to report for address and phone number NMR Lipoprofile 1101 nmol/L Abnormal Comprehe [facility] Internal Medicine Work Phone: Comment on above: Low < 1000 Moderate 1000 - 1299 Borderline-High 1300 - 1599 High 1600 - 2000 Very High > 2000 [facility] (refer to re port for specific site)refer to report for address and phone number NMR Lipoprofile 41 mg/dL Normal [facility] Internal Medicine Work Phone: Comment on above: [facility] (refer to re port for specific site)refer to report for address and phone number NMR Lipoprofile 101 mg/dL Abnormal 0-99 [facility] Internal Medicine Work Phone: Comment on above: Optimal < 100 Above optimal 100 - 129 Borderline 130 - 159 High 160 - 189 Very high > 189LDL-C is inaccurate if patient is non-fasting. [facility] (refer to re port for specific site)refer to report for address and phone number NMR Lipoprofile 170 mg/dL Normal 100-199 [facility] Internal Medicine Work Phone: Comment on above: [facility] (refer to re port for specific site)refer to report for address and phone number Thyroid Stim Hormone (TSH)Or dered By: Quality Compliance Coordinator on 08-26-2018 Thyrotropin Qn 1.55 {uIU/mL} Normal 0.358-3.74 Compreh ensive Internal Medicine Work Phone: Comment on above: [facility] [address] [place], [place], [phone] Urinalysis, CompleteOrdered By: Quality Compliance Coordinator on 08-26-2018 Protein mass conc (U) 15 mg/dL Abnormal Com prehensive Internal Medicine Work Phone: Comment on above: How was Urine Obtain ed? [facility] [address] [place], [place], [phone] RBC #/vol (U) 0-5 SEEN Normal 0-5 Comprehensi ve Internal Medicine Work Phone: Comment on above: How was Urine Obtain ed? [facility] [address] [place], [place], [phone] Urinalysis complete panel - Urine Normal Normal Comprehensive Internal Medicine Work Phone: Comment on above: How was Urine Obtain ed? [facility] [address] [place], [place], [phone] Urinalysis complete panel - Urine 2+ Normal [facility] Internal Medicine Work Phone: Comment on above: How was Urine Obtain ed? [facility] [address] [place], [place], [phone] Urinalysis complete panel - Urine 0 SEEN Normal 0-5 [facility] Internal Medicine Work Phone: Comment on above: How was Urine Obtain ed? [facility] [address] [place], [place], [phone] Urinalysis complete panel - Urine 0-5 SEEN Normal 0-5 [facility] Internal Medicine Work Phone: Comment on above: How was Urine Obtain ed? [facility] [address] [place], [address] Urinalysis complete panel - Urine 25 /ul Abnormal [facility] Internal Medicine Work Phone: Comment on above: How was Urine Obtain ed? [facility] [address] [place], [address] Urinalysis complete panel - Urine Negative Normal [facility] Internal Medicine Work Phone: Comment on above: How was Urine Obtain ed? [facility] [address] [place], [address] Urinalysis complete panel - Urine 1 mg/dL Abnormal [facility] Internal Medicine Work Phone: Comment on above: How was Urine Obtain ed? [facility] [address] [place], [address] Urinalysis complete panel - Urine 6.0 1 Normal 5.0 - 8.0 Comprehensive Internal Medicine Work Phone: Comment on above: How was Urine Obtain ed? [facility] [address] [place], [address] Urinalysis complete panel - Urine 1.020 1 Normal 1.002-1.030 Comprehensive Internal Medicine Work Phone: Comment on above: How was Urine Obtain ed? [facility] [address] [place], [address] Urinalysis complete panel - Urine 15 mg/dL Abnormal [facility] Internal Medicine Work Phone: Comment on above: How was Urine Obtain ed? [facility] [address] [place], [address] Urinalysis complete panel - Urine Yellow Normal Comprehensive Internal Medicine Work Phone: Comment on above: How was Urine Obtain ed? [facility] [address] [place], [phone] Urinalysis complete panel - Urine Clear Normal Comprehensive Internal Medicine Work Phone: Comment on above: How was Urine Obtain ed? [facility] [address] [place], [phone] Vitamin D,25 HydroxyOrdered By: Quality Compliance Coordinator on 08-26-2018 Vitamin D,25 Hydroxy 64.8 ng/mL Normal 29.95-100.01 Co mprehensive Internal Medicine Work Phone: Comment on above: Vitamin D 25(OH) Sta tus Range Deficiency <20 ng/mL (50nmol/L) Insufficiency 20 - 30 ng/mL (50 - 75 nmol/L) Sufficiency 30 - 100 ng/mL (75 - 250 nmol/L) Toxicity >100 ng/mL (>250 nmol/L) [facility] [address] [place], [address] Blood Glucose , Office ([phone])Ordered By: Antonette Medina on 05-17-2018 Glucose Glucometer molar conc (BldC) 129 1 Normal Comprehensive Internal Medicine Work Phone: HgA1C , Office ([phone])Ordere d By: Antonette Medina on 05-17-2018 Hemoglobin A1c/Hemoglobin.total mass fraction (Bld) 6.4 % Normal 4.6 - 7.1 Comprehensiv e Internal Medicine Work Phone: CBC W/Diff, AutomatedOrdered By: Quality Compliance Coordinator on 02-11-2018 Absolute Neut 5.1 {X10_3/uL} Normal 2.0-7.7 Compreh ensive Internal Medicine Work Phone: Comment on above: [facility] [address] [place], [address] Basophils/100 WBC (Bld) 0.2 % Normal 0-1 Comprehensive Internal Medicine Work Phone: Comment on above: [facility] [address] [place], [address] Eosinophils/100 WBC (Bld) 4.0 % Normal 0-5 Comprehensive Internal Medicine Work Phone: Comment on above: [facility] [address] [place], [place], [phone] Erythrocyte distribution width Ratio (RBC) 13.5 % Normal 11.6-14.6 Comprehensive Internal Medicine Work Phone: Comment on above: [facility] [address] [place], [place], [phone] Hematocrit Volume Fraction (Bld) 47.4 % Normal 40-54 [facility] Internal Medicine Work Phone: Comment on above: [facility] [address] [place], [place], [phone] Hemoglobin mass conc (Bld) 15.8 g/dL Normal 13.0-16.5 Comprehensive Internal Medicine Work Phone: Comment on above: [facility] [address] [place], [place], [address] IM GRAN % 0.100 % Normal 0.0-0.9 Comprehensive Internal Medicine Work Phone: Comment on above: IG% - Immature Granu locytes (promyelocytes, myelocytes andmetamyelocytes) > 1% indicates that a LEFT SHIFT is Present. [facility] [address] [place], [place], [phone] Lymphocytes #/vol (Bld) 2.60 {X10_3/ul} Normal 0.83-4.51 [facility] Internal Medicine Work Phone: Comment on above: [facility] [address] [place], [address] Lymphocytes/100 WBC (Bld) 30.3 % Normal 19-41 [facility] Internal Medicine Work Phone: Comment on above: [facility] [address] [place], [place], [address] MCH Entitic mass (RBC) 31.6 pg Normal 27.0-32.0 Comprehensive Internal Medicine Work Phone: Comment on above: [facility] [address] [place], [address] MCHC mass conc (RBC) 33.3 {g/gl} Normal 32-36 Com prehensive Internal Medicine Work Phone: Comment on above: [facility] [address] [place], [address] MCV Entitic volume (RBC) 94.8 fL Abnormal 80-94 [facility] Internal Medicine Work Phone: Comment on above: [facility] [address] [place], [address] Monocytes/100 WBC (Bld) 6.2 % Normal 0-10 [facility] Internal Medicine Work Phone: Comment on above: [facility] [address] [place], [address] Neutrophils/100 WBC (Bld) 59.2 % Normal 47-70 [facility] Internal Medicine Work Phone: Comment on above: [facility] [address] [place], [address] Platelet mean volume Entitic volume (Bld) 8.7 fL Normal 6.2-12.0 Comprehensi Internal Medicine Work Phone: Comment on above: [facility] [address] [place], [address] Platelets #/vol (Bld) 184 10*3/uL Normal 150-[address] [facility] Work Phone: Comment on above: [facility] [address] [place], [address] RBC #/vol (Bld) 5.00 {M/mm3} Normal 4.6-6.2 Compreh ensive Internal Medicine Work Phone: Comment on above: [facility] [address] [place], [address] RDW SD 46.6 fL Abnormal 35.1-43.9 Comprehensive Internal Medicine Work Phone: Comment on above: [facility] [address] [place], [address] WBC #/vol (Bld) 8.6 10*3/uL Normal 4.4-11.0 Comprehe nsive Internal Medicine Work Phone: Comment on above: [facility] [address] [place], [address] CBC W/Diff, Automated 8.6 K/mm3 Normal 4.4-11.0 Com prehensive Internal Medicine Work Phone: CBC W/Diff, Automated 15.8 g/dL Normal 13.0-16.5 Com prehensive Internal Medicine Work Phone: CBC W/Diff, Automated 184 K/mm3 Normal 150-450 Com prehensive Internal Medicine Work Phone: CBC W/Diff, Automated 8.7 fL Normal 6.2-12.0 Com prehensive Internal Medicine Work Phone: CBC W/Diff, Automated 59.2 % Normal 47-70 Com prehensive Internal Medicine Work Phone: CBC W/Diff, Automated 5.00 {M/mm3} Normal 4.6-6.2 C omprehensive Internal Medicine Work Phone: CBC W/Diff, Automated 30.3 % Normal 19-41 Com prehensive Internal Medicine Work Phone: CBC W/Diff, Automated 6.2 % Normal 0-10 Com prehensive Internal Medicine Work Phone: CBC W/Diff, Automated 4.0 % Normal 0-5 Com prehensive Internal Medicine Work Phone: CBC W/Diff, Automated 94.8 fL Abnormal 80-94 Com prehensive Internal Medicine Work Phone: CBC W/Diff, Automated 31.6 pg Normal 27.0-32.0 Com prehensive Internal Medicine Work Phone: CBC W/Diff, Automated 33.3 {g/gl} Normal 32-36 Co mprehensive Internal Medicine Work Phone: CBC W/Diff, Automated 47.4 % Normal 40-54 Com prehensive Internal Medicine Work Phone: CBC W/Diff, Automated 13.5 % Normal 11.6-14.6 Com prehensive Internal Medicine Work Phone: CBC W/Diff, Automated 46.6 fL Abnormal 35.1-43.9 Com prehensive Internal Medicine Work Phone: CBC W/Diff, Automated 0.2 % Normal 0-1 Com prehensive Internal Medicine Work Phone: CBC W/Diff, Automated 0.100 % Normal 0.0-0.9 Com prehensive Internal Medicine Work Phone: Comment on above: IG% - Immature Granu locytes (promyelocytes, myelocytes andmetamyelocytes) > 1% indicates that a LEFT SHIFT is Present. CBC W/Diff, Automated 5.1 {X10_3/uL} Normal 2.0-7.7 Comprehensive Internal Medicine Work Phone: CBC W/Diff, Automated 2.60 {X10_3/ul} Normal 0.83-4.51 Comprehensive Internal Medicine Work Phone: Comprehensive Metabolic Prof ilOrdered By: Quality Compliance Coordinator on 02-11-2018 Comprehensive metabolic 2000 panel 4.5 mmol/L Normal 3.5-5.1 Comprehensi ve Internal Medicine Work Phone: Comment on above: [facility] [address] [place], [place], [phone] Comprehensive metabolic 2000 panel 134 mL/min Normal Comprehensi ve Internal Medicine Work Phone: Comment on above: GFR Calc [facility] [address] [place], [place], [address] Comprehensive metabolic 2000 panel 4 1 Abnormal 5-15 Comprehensi ve Internal Medicine Work Phone: Comment on above: [facility] [address] [place], [place], [address] Comprehensive metabolic 2000 panel 111 mL/min Normal Comprehensi ve Internal Medicine Work Phone: Comment on above: Non- GFR Calc [facility] [address] [place], [place], [address] Comprehensive metabolic 2000 panel 0.75 mg/dL Normal 0.70-1.30 Comprehensi ve Internal Medicine Work Phone: Comment on above: The validity of the calculated GFR AND GFRAA in patients over70 years has not been determined. Clinical correlation isessential. [facility] [address] [place], [place], [address] Comprehensive metabolic 2000 panel 141 mmol/L Normal 136-145 Comprehensi ve Internal Medicine Work Phone: Comment on above: [facility] [address] [place], [place], [address] Comprehensive metabolic 2000 panel 0.40 mg/dL Normal 0.20-1.00 Comprehensi ve Internal Medicine Work Phone: Comment on above: [facility] [address] [place], [place], [phone] Comprehensive metabolic 2000 panel 30.0 mmol/L Normal 21.0-32.0 Comprehensi ve Internal Medicine Work Phone: Comment on above: [facility] [address] [place], [place], [address] Comprehensive metabolic 2000 panel 100 mg/dL Normal 74-106 Comprehensi ve Internal Medicine Work Phone: Comment on above: Fasting Glucose resu lt from 100 to 125 mg/dLsuggests IMPAIRED HOMEOSTASIS per A.D.A. criteria.Please note revised GLUCOSE reference range fforthuco35/02/2018. [facility] [address] [place], [place], [phone] Comprehensive metabolic 2000 panel 28 U/L Normal 16-61 Comprehensi ve Internal Medicine Work Phone: Comment on above: [facility] [address] [place], [place], [address] Comprehensive metabolic 2000 panel 44 U/L Abnormal 45-117 Comprehensi ve Internal Medicine Work Phone: Comment on above: [facility] [address] [place], [place], [address] Comprehensive metabolic 2000 panel 19 U/L Normal 15-37 Comprehensi ve Internal Medicine Work Phone: Comment on above: [facility] [address] [place], [place], [address] Comprehensive metabolic 2000 panel 8.3 mg/dL Abnormal 8.5-10.1 Comprehensi ve Internal Medicine Work Phone: Comment on above: [facility] [address] [place], [place], [address] Comprehensive metabolic 2000 panel 107 mmol/L Normal 98-107 Comprehensi ve Internal Medicine Work Phone: Comment on above: [facility] [address] [place], [place], [address] Comprehensive metabolic 2000 panel 12 mg/dL Normal 7-18 Comprehensi ve Internal Medicine Work Phone: Comment on above: [facility] [address] [place], [address] Comprehensive metabolic 2000 panel 3.0 g/dL Normal 2.2-4.2 Comprehensi ve Internal Medicine Work Phone: Comment on above: [facility] [address] [place], [address] Comprehensive metabolic 2000 panel 3.5 g/dL Normal 3.2-5.0 Comprehensi ve Internal Medicine Work Phone: Comment on above: [facility] [address] [place], [address] Comprehensive metabolic 2000 panel 16.1 {RATIO} Normal 10-20 Comprehensi ve Internal Medicine Work Phone: Comment on above: [facility] [address] [place], [place], [address] Comprehensive metabolic 2000 panel 6.5 g/dL Normal 6.4-8.2 Comprehensi ve Internal Medicine Work Phone: Comment on above: [facility] [address] [place], [place], [address] Comprehensive metabolic 2000 panel 1.2 {RATIO} Normal 0.9-2.4 Comprehensi ve Internal Medicine Work Phone: Comment on above: [facility] [address] [place], [place], [address] Hemoglobin H0gJzguoce By: Sy [place] Paid Search Specialist on 02-11-2018 Hemoglobin A1c/Hemoglobin.total mass fraction (Bld) 6.0 % Normal 4.2-6.3 Comprehensiv e Internal Medicine Work Phone: Comment on above: [facility] [address] [place], [address] Lipid ProfileOrdered By: [facility] Paid Search Specialist on 02-11-2018 Cholesterol in HDL mass conc 35 mg/dL Abnormal Comprehensive Internal Medicine Work Phone: Comment on above: The drugs N-Acetylcy steine and Metamizole may falselydepress this assay. Reference Range HDL <40 mg/dL Low HDL Cholesterol HDL >or= 60 mg/dL High HDL Cholesterol [facility] [address] [place], [place], [address] Cholesterol in LDL mass conc 74 mg/dL Normal 0-130 Comprehensive Internal Medicine Work Phone: Comment on above: [facility] [address] [place], [address] Cholesterol in VLDL mass conc 25 mg/dL Normal 5-40 Comprehensive Internal Medicine Work Phone: Comment on above: [facility] [address] [place], [address] Cholesterol mass conc 134 mg/dL Normal Com prehensive Internal Medicine Work Phone: Comment on above: <200 mg/dL Desirable 200-240 mg/dL Borderline >240 mg/dL High Risk [facility] [address] [place], [place], [address] Triglyceride mass conc 126 mg/dL Normal [facility] Medicine Work Phone: Comment on above: The drugs N-Acetylcy steine and Metamizole may falselydepress this assay.Serum Triglycerides Reference Interval Normal <150 mg/dL Borderline high 150 - 199 mg/dL High 200 - 499 mg/dL Very High > or = 500 mg/dL [facility] [address] [place], [place], [address] Lipid Profile 74 mg/dL Normal 0-130 Comprehensi ve Internal Medicine Work Phone: Lipid Profile 35 mg/dL Abnormal Comprehensi ve Internal Medicine Work Phone: Comment on above: The drugs N-Acetylcy steine and Metamizole may falselydepress this assay. Reference Range HDL <40 mg/dL Low HDL Cholesterol HDL >or= 60 mg/dL High HDL Cholesterol Lipid Profile 126 mg/dL Normal Comprehensi ve Internal Medicine Work Phone: Comment on above: The drugs N-Acetylcy steine and Metamizole may falselydepress this assay.Serum Triglycerides Reference Interval Normal <150 mg/dL Borderline high 150 - 199 mg/dL High 200 - 499 mg/dL Very High > or = 500 mg/dL Lipid Profile 134 mg/dL Normal Comprehensi ve Internal Medicine Work Phone: Comment on above: <200 mg/dL Desirable 200-240 mg/dL Borderline >240 mg/dL High Risk Lipid Profile 25 mg/dL Normal 5-40 Comprehensi ve Internal Medicine Work Phone: MicroalbOrdered By: Tammy granados on 02-11-2018 Microalb 5.3 {mg/g_CRE} Normal Comprehens kaitlin Internal Medicine Work Phone: Comment on above: [facility] [address] [place], [phone] Microalb 5.9 mg/L Normal [facility] Medicine Work Phone: Comment on above: [facility] [address] [place], [phone] Microalb 112.00 mg/dL Normal Comprehensiv e Internal Medicine Work Phone: Comment on above: [facility] [address] [place], [phone] Thyroid Stim Hormone (TSH)Or dered By: Quality Compliance Coordinator on 02-11-2018 Thyrotropin Qn 1.87 {uIU/mL} Normal 0.358-3.74 Compreh ensive Internal Medicine Work Phone: Comment on above: [facility] [address] [place], [phone] Urinalysis, Routine (Dipstic k)Ordered By: Quality Compliance Coordinator on 02-11-2018 Urinalysis, Routine (Dipstick) Negative Normal [facility] Medicine Work Phone: Comment on above: How was Urine Obtain ed? [facility] [address] [place], [address] Urinalysis, Routine (Dipstick) 10 /ul Abnormal Comprehensive Internal Medicine Work Phone: Comment on above: How was Urine Obtain ed? [facility] [address] [place], [phone] Urinalysis, Routine (Dipstick) Normal Normal [facility] Medicine Work Phone: Comment on above: How was Urine Obtain ed? [facility] [address] [place], [address] Urinalysis, Routine (Dipstick) 6.5 1 Normal 5.0 - 8.0 Comprehensive Internal Medicine Work Phone: Comment on above: How was Urine Obtain ed? [facility] [address] [place], [phone] Urinalysis, Routine (Dipstick) 1.015 1 Normal 1.002-1.030 Comprehensive Internal Medicine Work Phone: Comment on above: How was Urine Obtain ed? [facility] [address] [place], [phone] Urinalysis, Routine (Dipstick) Clear Normal Comprehensive [facility] Medicine Work Phone: Comment on above: How was Urine Obtain ed? [facility] [address] [place], [phone] Urinalysis, Routine (Dipstick) Yellow Normal [facility] Work Phone: Comment on above: How was Urine Obtain ed? [facility] [address] [place], [phone] Vitamin D,25 HydroxyOrdered By: Quality Compliance Coordinator on 02-11-2018 Vitamin D,25 Hydroxy 58.8 ng/mL Normal 29.95-100.01 [facility] Work Phone: Comment on above: Vitamin D 25(OH) Sta tus Range Deficiency <20 ng/mL (50nmol/L) Insuffciency 20 - 30 ng/mL (50 - 75 nmol/L) Sufficiency 30 - 100 ng/mL (75 - 250 nmol/L) Toxicity >100 ng/mL (>250 nmol/L) [facility] [address] [place], [id number] Blood Glucose , Office ([phone])Ordered By: Darlene Hanson on 07-17-2017 Glucose Glucometer molar conc (BldC) 119 1 Normal [facility] Work Phone: HgA1C , Office ([phone])Ordere d By: Darlene Hanson on 07-17-2017 Hemoglobin A1c/Hemoglobin.total mass fraction (Bld) 6.3 % Normal 4.6 - 7.1 Comprehensiv e Internal Medicine Work Phone: CBC W/Diff, AutomatedOrdered By: Quality Compliance Coordinator on 07-15-2017 Absolute Neut 5.8 {X10_3/uL} Normal 2.0-7.7 Compreh ensive Internal Medicine Work Phone: Comment on above: [facility] [address] [place], [address] Basophils/100 WBC (Bld) 0.1 % Normal 0-1 [facility] Work Phone: Comment on above: [facility] [address] [place], [address] Eosinophils/100 WBC (Bld) 3.2 % Normal 0-5 [facility] Work Phone: Comment on above: [facility] [address] [place], [place], [phone] Erythrocyte distribution width Ratio (RBC) 12.6 % Normal 11.6-14.6 [facility] Work Phone: Comment on above: [facility] [address] [place], [address] Hematocrit Volume Fraction (Bld) 47.1 % Normal 40-54 [facility] Work Phone: Comment on above: [facility] [address] [place], [address] Hemoglobin mass conc (Bld) 15.8 g/dL Normal 13.0-16.5 [facility] Work Phone: Comment on above: [facility] [address] [place], [place], [phone](989 IM GRAN % 0.200 % Normal 0.0-0.9 [facility] Work Phone: Comment on above: IG% - Immature Granu locytes (promyelocytes, myelocytes andmetamyelocytes) > 1% indicates that a LEFT SHIFT is Present. [facility] [address] [place], [address] Lymphocytes #/vol (Bld) 2.68 {X10_3/ul} Normal 0.83-4.51 [facility] Work Phone: Comment on above: [facility] [address] [place], [address] Lymphocytes/100 WBC (Bld) 28.5 % Normal 19-41 [facility] Work Phone: Comment on above: [facility] [address] [place], [address] MCH Entitic mass (RBC) 31.8 pg Normal 27.0-32.0 [facility] Work Phone: Comment on above: [facility] [address] [place], [address] MCHC mass conc (RBC) 33.5 {g/gl} Normal 32-36 Com prehensive Internal Medicine Work Phone: Comment on above: [facility] [address] [place], [address] MCV Entitic volume (RBC) 94.8 fL Abnormal 80-94 [facility] Work Phone: Comment on above: [facility] [address] [place], [address] Monocytes/100 WBC (Bld) 6.1 % Normal 0-10 [facility] Work Phone: Comment on above: [facility] [address] [place], [address] Neutrophils/100 WBC (Bld) 61.9 % Normal 47-70 [facility] Work Phone: Comment on above: [facility] [address] [place], [address] Platelet mean volume Entitic volume (Bld) 9.3 fL Normal 6.2-12.0 Comprehensi ve Internal Medicine Work Phone: Comment on above: [facility] [address] [place], [address] Platelets #/vol (Bld) 250 10*3/uL Normal 150-450 Co mprehensive Internal Medicine Work Phone: Comment on above: [facility] [address] [place], [address] RBC #/vol (Bld) 4.97 {M/mm3} Normal 4.6-6.2 Compreh ensive Internal Medicine Work Phone: Comment on above: [facility] [address] [place], [address] RDW SD 43.0 fL Normal 35.1-43.9 [facility] Work Phone: Comment on above: [facility] [address] [place], [address] WBC #/vol (Bld) 9.4 10*3/uL Normal 4.4-11.0 Comprehe nsive Internal Medicine Work Phone: Comment on above: [facility] [address] [place], [address] CBC W/Diff, Automated 12.6 % Normal 11.6-14.6 Com prehensive Internal Medicine Work Phone: CBC W/Diff, Automated 5.8 {X10_3/uL} Normal 2.0-7.7 [facility] Work Phone: CBC W/Diff, Automated 33.5 {g/gl} Normal 32-36 Co mprehensive Internal Medicine Work Phone: CBC W/Diff, Automated 31.8 pg Normal 27.0-32.0 Com prehensive Internal Medicine Work Phone: CBC W/Diff, Automated 94.8 fL Abnormal 80-94 Com prehensive Internal Medicine Work Phone: CBC W/Diff, Automated 6.1 % Normal 0-10 Com prehensive Internal Medicine Work Phone: CBC W/Diff, Automated 47.1 % Normal 40-54 Com prehensive Internal Medicine Work Phone: CBC W/Diff, Automated 28.5 % Normal 19-41 Com prehensive Internal Medicine Work Phone: CBC W/Diff, Automated 15.8 g/dL Normal 13.0-16.5 [facility] prehensive Internal Medicine Work Phone: CBC W/Diff, Automated 4.97 {M/mm3} Normal 4.6-6.2 C omprehensive Internal Medicine Work Phone: CBC W/Diff, Automated 9.4 K/mm3 Normal 4.4-11.0 Com prehensive Internal Medicine Work Phone: CBC W/Diff, Automated 61.9 % Normal 47-70 [facility] prehensive Internal Medicine Work Phone: CBC W/Diff, Automated 0.200 % Normal 0.0-0.9 [facility] prehensive Internal Medicine Work Phone: Comment on above: IG% - Immature Granu locytes (promyelocytes, myelocytes andmetamyelocytes) > 1% indicates that a LEFT SHIFT is Present. CBC W/Diff, Automated 0.1 % Normal 0-1 [facility] prehensive Internal Medicine Work Phone: CBC W/Diff, Automated 3.2 % Normal 0-5 [facility] prehensive Internal Medicine Work Phone: CBC W/Diff, Automated 2.68 {X10_3/ul} Normal 0.83-4.51 [facility] Internal Medicine Work Phone: CBC W/Diff, Automated 9.3 fL Normal 6.2-12.0 [facility] prehensive Internal Medicine Work Phone: CBC W/Diff, Automated 250 K/mm3 Normal 150-450 [facility] prehensive Internal Medicine Work Phone: CBC W/Diff, Automated 43.0 fL Normal 35.1-43.9 [facility] prehensive Internal Medicine Work Phone: Comprehensive Metabolic Prof ilOrdered By: Quality Compliance Coordinator on 07-15-2017 Comprehensive metabolic 2000 panel 110 mg/dL Abnormal 74-106 Comprehensi ve Internal Medicine Work Phone: Comment on above: Fasting Glucose resu lt from 100 to 125 mg/dLsuggests IMPAIRED HOMEOSTASIS per A.D.A. criteria.Please note revised GLUCOSE reference range [id number]/02/2018. [facility] [address] [place], [place], [address] Comprehensive metabolic 2000 panel 49 U/L Normal 45-117 Comprehensi ve Internal Medicine Work Phone: Comment on above: [facility] [address] [place], [place], [phone] Comprehensive metabolic 2000 panel 140 mmol/L Normal 136-145 Comprehensi ve Internal Medicine Work Phone: Comment on above: [facility] [address] [place], [place], [address] Comprehensive metabolic 2000 panel 4.2 mmol/L Normal 3.5-5.1 Comprehensi ve Internal Medicine Work Phone: Comment on above: [facility] [address] [place], [place], [phone] Comprehensive metabolic 2000 panel 100 mmol/L Normal 98-107 Comprehensi ve Internal Medicine Work Phone: Comment on above: [facility] [address] [place], [place], [address] Comprehensive metabolic 2000 panel 35.0 mmol/L Abnormal 21.0-32.0 Comprehensi ve Internal Medicine Work Phone: Comment on above: [facility] [address] [place], [place], [address] Comprehensive metabolic 2000 panel 16 U/L Normal 15-37 Comprehensi ve Internal Medicine Work Phone: Comment on above: [facility] [address] [place], [address] Comprehensive metabolic 2000 panel 5 1 Normal 5-15 Comprehensi ve Internal Medicine Work Phone: Comment on above: [facility] [address] [place], [place], [phone] Comprehensive metabolic 2000 panel 26 U/L Normal 16-61 Comprehensi ve Internal Medicine Work Phone: Comment on above: Please note revised ALT reference range [id number]/28/2018. [facility] [address] [place], [place], [address] Comprehensive metabolic 2000 panel 9.4 mg/dL Normal 8.5-10.1 Comprehensi ve Internal Medicine Work Phone: Comment on above: [facility] [address] [place], [place], [phone] Comprehensive metabolic 2000 panel 1.0 {RATIO} Normal 0.9-2.4 Comprehensi ve Internal Medicine Work Phone: Comment on above: [facility] [address] [place], [place], [address] Comprehensive metabolic 2000 panel 3.4 g/dL Normal 2.2-4.2 Comprehensi ve Internal Medicine Work Phone: Comment on above: [facility] [address] [place], [place], [phone] Comprehensive metabolic 2000 panel 3.5 g/dL Normal 3.2-5.0 Comprehensi ve Internal Medicine Work Phone: Comment on above: [facility] [address] [place], [place], [phone] Comprehensive metabolic 2000 panel 0.40 mg/dL Normal 0.20-1.00 Comprehensi ve Internal Medicine Work Phone: Comment on above: [facility] [address] [place], [place], [address] Comprehensive metabolic 2000 panel 6.9 g/dL Normal 6.4-8.2 Comprehensi ve Internal Medicine Work Phone: Comment on above: [facility] [address] [place], [place], [address] Comprehensive metabolic 2000 panel 17.7 {RATIO} Normal 10-20 Comprehensi ve Internal Medicine Work Phone: Comment on above: [facility] [address] [place], [place], [phone] Comprehensive metabolic 2000 panel 137 mL/min Normal Comprehensi ve Internal Medicine Work Phone: Comment on above: GFR Calc [facility] [address] [place], [place], [address] Comprehensive metabolic 2000 panel 113 mL/min Normal Comprehensi ve Internal Medicine Work Phone: Comment on above: Non- GFR Calc [facility] [address] [place], [place], [address] Comprehensive metabolic 2000 panel 0.73 mg/dL Normal 0.70-1.30 Comprehensi ve Internal Medicine Work Phone: Comment on above: The validity of the calculated GFR AND GFRAA in patients over70 years has not been determined. Clinical correlation isessential. [facility] [address] [place], [place], [phone] Comprehensive metabolic 2000 panel 13 mg/dL Normal 7-18 Comprehensi ve Internal Medicine Work Phone: Comment on above: [facility] [address] [place], [place], [address] Lipid ProfileOrdered By: Martinez tem Paid Search Specialist on 07-15-2017 Cholesterol in HDL mass conc 32 mg/dL Abnormal [facility] Work Phone: Comment on above: The drugs N-Acetylcy steine and Metamizole may falselydepress this assay. Reference Range HDL <40 mg/dL Low HDL Cholesterol HDL >or= 60 mg/dL High HDL Cholesterol [facility] [address] [place], [place], [phone] Cholesterol in LDL mass conc 61 mg/dL Normal 0-130 [facility] Work Phone: Comment on above: [facility] [address] [place], [address] Cholesterol in VLDL mass conc 29 mg/dL Normal 5-40 [facility] Work Phone: Comment on above: [facility] [address] [place], [address] Cholesterol mass conc 122 mg/dL Normal Com prehensive Internal Medicine Work Phone: Comment on above: <200 mg/dL Desirable 200-240 mg/dL Borderline >240 mg/dL High Risk [facility] [address] [place], [place], [phone] Triglyceride mass conc 143 mg/dL Normal [facility] Work Phone: Comment on above: The drugs N-Acetylcy steine and Metamizole may falselydepress this assay.Serum Triglycerides Reference Interval Normal <150 mg/dL Borderline high 150 - 199 mg/dL High 200 - 499 mg/dL Very High > or = 500 mg/dL [facility] [address] [place], [address] Lipid Profile 29 mg/dL Normal 5-40 Comprehensi ve Internal Medicine Work Phone: Lipid Profile 61 mg/dL Normal 0-130 Comprehensi ve Internal Medicine Work Phone: Lipid Profile 32 mg/dL Abnormal Comprehensi ve Internal Medicine Work Phone: Comment on above: The drugs N-Acetylcy steine and Metamizole may falselydepress this assay. Reference Range HDL <40 mg/dL Low HDL Cholesterol HDL >or= 60 mg/dL High HDL Cholesterol Lipid Profile 143 mg/dL Normal Comprehensi ve Internal Medicine Work Phone: Comment on above: The drugs N-Acetylcy steine and Metamizole may falselydepress this assay.Serum Triglycerides Reference Interval Normal <150 mg/dL Borderline high 150 - 199 mg/dL High 200 - 499 mg/dL Very High > or = 500 mg/dL Lipid Profile 122 mg/dL Normal Comprehensi ve Internal Medicine Work Phone: Comment on above: <200 mg/dL Desirable 200-240 mg/dL Borderline >240 mg/dL High Risk MicroalbOrdered By: Tammy granados on 07-15-2017 Microalb 9.1 {mg/g_CRE} Normal Comprehens kaitlin Internal Medicine Work Phone: Comment on above: [facility] [address] [place], [place], [phone] ; fu 3-2 KF Microalb 19.5 mg/L Normal [facility] Work Phone: Comment on above: [facility] [address] [place], [place], [address] ; fu 3-2 KF Microalb 214.00 mg/dL Normal Comprehensiv e Internal Medicine Work Phone: Comment on above: [facility] [address] [place], [place], [phone] ; fu 3-2 KF PSA,Total - Annual ScreenOrd ered By: Quality Compliance Coordinator on 07-15-2017 Prostate specific Ag mass conc 0.82 ng/mL Normal 0.00-4.00 [facility] Work Phone: Comment on above: This test was perfor med using the TPSA assay method for the[facility] chemistry system. Values obtained with differentassay methods cannot be used interchangably.When changing PSA assays in the course of monitoring apatient, additional sequential testing should be carriedout to confirm baseline values. [facility] [address] [place], [place], [phone] Thyroid Stim Hormone (TSH)Or dered By: Quality Compliance Coordinator on 07-15-2017 Thyrotropin Qn 2.14 {uIU/mL} Normal 0.358-3.74 Compreh ensive Internal Medicine Work Phone: Comment on above: [facility] [address] [place], [place], [address] Urinalysis, CompleteOrdered By: Quality Compliance Coordinator on 07-15-2017 Protein mass conc (U) Negative Normal Com prehensive Internal Medicine Work Phone: Comment on above: How was Urine Obtain ed? [facility] [address] [place], [place], [phone] RBC #/vol (U) 0-5 SEEN Normal 0-5 Comprehensi ve Internal Medicine Work Phone: Comment on above: How was Urine Obtain ed? [facility] [address] [place], [place], [phone] RBC Test strip #/vol (U) 0-5 SEEN Normal 0-5 [facility] Work Phone: Urinalysis complete panel - Urine 0 SEEN Normal 0-5 [facility] Work Phone: Comment on above: How was Urine Obtain ed? [facility] [address] [place], [place], [phone] Urinalysis complete panel - Urine 0-5 SEEN Normal 0-5 [facility] Work Phone: Comment on above: How was Urine Obtain ed? [facility] [address] [place], [place], [phone] Urinalysis complete panel - Urine 25 /ul Abnormal [facility] Work Phone: Comment on above: How was Urine Obtain ed? [facility] [address] [place], [address] Urinalysis complete panel - Urine Negative Normal [facility] Work Phone: Comment on above: How was Urine Obtain ed? [facility] [address] [place], [place], [phone] Urinalysis complete panel - Urine Normal Normal [facility] Work Phone: Comment on above: How was Urine Obtain ed? [facility] [address] [place], [address] Urinalysis complete panel - Urine 6.0 1 Normal 5.0 - 8.0 [facility] Work Phone: Comment on above: How was Urine Obtain ed? [facility] [address] [place], [address] Urinalysis complete panel - Urine 1.025 1 Normal 1.002-1.030 [facility] Work Phone: Comment on above: How was Urine Obtain ed? [facility] [address] [place], [address] Urinalysis complete panel - Urine Clear Normal [facility] Work Phone: Comment on above: How was Urine Obtain ed? [facility] [address] [place], [address] Urinalysis complete panel - Urine Yellow Normal [facility] Work Phone: Comment on above: How was Urine Obtain ed? [facility] [address] [place], [address] Urinalysis complete panel - Urine RARE Normal [facility] Work Phone: Comment on above: How was Urine Obtain ed? [facility] [address], [address] Urinalysis complete panel - Urine 1+ Normal [facility] Work Phone: Comment on above: How was Urine Obtain ed? [facility] [address] [place], [id number] Vitamin D,25 HydroxyOrdered By: Quality Compliance Coordinator on 07-15-2017 Vitamin D,25 Hydroxy 52.3 ng/mL Normal 29.95-100.01 [facility] Internal Medicine Work Phone: Comment on above: Vitamin D 25(OH) Sta tus Range Deficiency <20 ng/mL (50nmol/L) Insuffciency 20 - 30 ng/mL (50 - 75 nmol/L) Sufficiency 30 - 100 ng/mL (75 - 250 nmol/L) Toxicity >100 ng/mL (>250 nmol/L) [facility] [address] [place], [place], [address] Blood Glucose , Office ([phone])Ordered By: Verna Canchola on 04-17-2017 Glucose Glucometer molar conc (BldC) 101 1 Normal [facility] Work Phone: HgA1C , Office ([phone])Ordere d By: Verna Canchola on 04-17-2017 Hemoglobin A1c/Hemoglobin.total mass fraction (Bld) 6.5 % Normal 4.6 - 7.1 Comprehensiv e Internal Medicine Work Phone: PSA (PROSTATE SPECIFIC ANTIG EN) (V76.44)Ordered By: Quality Compliance Coordinator on 04-17-2017 Prostate specific Ag mass conc 0.7 ng/mL Normal 0.0-4.0 [facility] Work Phone: Comment on above: Saurav ECLIA methodol ogy. .According to the [place] [employer], Serum PSA shoulddecrease and remain at undetectable levels after radicalprostatectomy. The AUA defines biochemical recurrence as an initialPSA value 0.2 ng/mL or greater followed by a subsequent confirmatoryPSA value 0.2 ng/mL or greater.Values obtained with different assay methods or kits cannot be usedinterchangeably. Results cannot be interpreted as absolute evidenceof the presence or absence of malignant disease. PATIENT NOT FASTINGP ERFORMED BY: [facility]CoPres[facility] HospitalBkiwxi8346 [facility] [id number] Basic Metabolic Profile (BMP )Ordered By: Quality Compliance Coordinator on 04-13-2017 Basic metabolic 2000 panel 20.3 {RATIO} Abnormal 10-20 [facility] Work Phone: Comment on above: [facility] [address] [place], [place], [phone] Basic metabolic 2000 panel 0.69 mg/dL Abnormal 0.70-1.30 [facility] Work Phone: Comment on above: The validity of the calculated GFR AND GFRAA in patients over70 years has not been determined. Clinical correlation isessential. [facility] [address] [place], [address] Basic metabolic 2000 panel 8.8 mg/dL Normal 8.5-10.1 [facility] Work Phone: Comment on above: [facility] [address] [place], [address] Basic metabolic 2000 panel 143 mmol/L Normal 136-145 [facility] Work Phone: Comment on above: [facility] [address] [place], [place], [address] Basic metabolic 2000 panel 121 mL/min Normal [facility] Work Phone: Comment on above: Non- GFR Calc [facility] [address] [place], [address] Basic metabolic 2000 panel 4.0 mmol/L Normal 3.5-5.1 [facility] Work Phone: Comment on above: [facility] [address] [place], [place], [address] Basic metabolic 2000 panel 106 mmol/L Normal 98-107 [facility] Work Phone: Comment on above: [facility] [address] [place], [address] Basic metabolic 2000 panel 30.0 mmol/L Normal 21.0-32.0 [facility] Work Phone: Comment on above: [facility] [address] [place], [place], [phone] Basic metabolic 2000 panel 7 1 Normal 5-15 [facility] Work Phone: Comment on above: [facility] [address] [place], [place], [address] Basic metabolic 2000 panel 147 mL/min Normal [facility] Work Phone: Comment on above: GFR Calc [facility] [address] [place], [place], [address] Basic metabolic 2000 panel 14 mg/dL Normal 7-18 [facility] Work Phone: Comment on above: [facility] [address] [place], [place], [address] Basic metabolic 2000 panel 97 mg/dL Normal 70-110 [facility] Work Phone: Comment on above: [facility] [address] [place], [place], [phone] Lipid ProfileOrdered By: Martinez tem Paid Search Specialist on 04-13-2017 Cholesterol in HDL mass conc 48 mg/dL Normal [facility] Work Phone: Comment on above: The drugs N-Acetylcy steine and Metamizole may falselydepress this assay. Reference Range HDL <40 mg/dL Low HDL Cholesterol HDL >or= 60 mg/dL High HDL Cholesterol [facility] [address] [place], [place], [address] Cholesterol in LDL mass conc 82 mg/dL Normal 0-130 [facility] Work Phone: Comment on above: [facility] [address] [place], [place], [address] Cholesterol in VLDL mass conc 19 mg/dL Normal 5-40 [facility] Work Phone: Comment on above: [facility] [address] [place], [place], [address] Cholesterol mass conc 149 mg/dL Normal Com prehensive Internal Medicine Work Phone: Comment on above: <200 mg/dL Desirable 200-240 mg/dL Borderline >240 mg/dL High Risk [facility] [address] [place], [place], [phone] Triglyceride mass conc 94 mg/dL Normal [facility] Work Phone: Comment on above: The drugs N-Acetylcy steine and Metamizole may falselydepress this assay.Serum Triglycerides Reference Interval Normal <150 mg/dL Borderline high 150 - 199 mg/dL High 200 - 499 mg/dL Very High > or = 500 mg/dL [facility] [address] [place], [id number] Lipid Profile 82 mg/dL Normal 0-130 Comprehensi ve Internal Medicine Work Phone: Lipid Profile 48 mg/dL Normal Comprehensi ve Internal Medicine Work Phone: Comment on above: The drugs N-Acetylcy steine and Metamizole may falselydepress this assay. Reference Range HDL <40 mg/dL Low HDL Cholesterol HDL >or= 60 mg/dL High HDL Cholesterol Lipid Profile 94 mg/dL Normal Comprehensi ve Internal Medicine Work Phone: Comment on above: The drugs N-Acetylcy steine and Metamizole may falselydepress this assay.Serum Triglycerides Reference Interval Normal <150 mg/dL Borderline high 150 - 199 mg/dL High 200 - 499 mg/dL Very High > or = 500 mg/dL Lipid Profile 149 mg/dL Normal Comprehensi ve Internal Medicine Work Phone: Comment on above: <200 mg/dL Desirable 200-240 mg/dL Borderline >240 mg/dL High Risk Lipid Profile 19 mg/dL Normal 5-40 Comprehensi ve Internal Medicine Work Phone: Liver ProfileOrdered By: Martinez tem Paid Search Specialist on 04-13-2017 Albumin mass conc 3.7 g/dL Normal 3.4-5.0 Compreh ensive Internal Medicine Work Phone: Comment on above: Please note revised Albumin AND Globulin reference rangeeffective 2017. [facility] [address] [place], [place], [address] ALP enzyme act/vol 46 U/L Normal 45-117 Compre hensive Internal Medicine Work Phone: Comment on above: [facility] [address] [place], [place], [phone] ALT enzyme act/vol 34 U/L Normal 12-78 [facility] Internal Medicine Work Phone: Comment on above: [facility] [address] [place], [place], [phone] enzyme act/vol 26 U/L Normal 15-37 [facility] Internal Medicine Work Phone: Comment on above: [facility] [address] [place], [place], [id number] Bilirubin mass conc 0.50 mg/dL Normal 0.20-1.00 Compr [facility] Internal Medicine Work Phone: Comment on above: [facility] [address] [place], [address] Bilirubin.direct mass conc 0.14 mg/dL Normal 0.00-0.30 [facility] Work Phone: Comment on above: [facility] [address] [place], [address] Globulin Calculated mass conc (S) 3.1 g/dL Normal 2.2-4.2 [facility] Work Phone: Globulin mass conc (S) 3.1 g/dL Normal 2.2-4.2 [facility] Work Phone: Comment on above: [facility] [address] [place], [place], [phone] Protein mass conc 6.8 g/dL Normal 6.4-8.2 [facility] Internal Medicine Work Phone: Comment on above: [facility] [address] [place], [place], [phone] Blood Glucose , Office ([phone])Ordered By: Verna Canchola on 10-09-2016 Glucose Glucometer molar conc (BldC) 176 1 Normal [facility] Work Phone: HgA1C , Office ([phone])Ordere d By: Verna Canchola on 10-09-2016 Hemoglobin A1c/Hemoglobin.total mass fraction (Bld) 6.5 % Normal 4.6 - 7.1 Comprehensiv e Internal Medicine Work Phone: CBC W/Diff, AutomatedOrdered By: Quality Compliance Coordinator on 10-07-2016 Absolute Neut 5.8 {X10_3/uL} Normal 2.0-7.7 Compreh ensive Internal Medicine Work Phone: Comment on above: [facility] [address] [place], [place], [phone] ; fu 5-25 kf Basophils/100 WBC (Bld) 0.3 % Normal 0-1 [facility] Work Phone: Comment on above: [facility] [address] [place], [place], [phone] ; fu 5-25 kf Eosinophils/100 WBC (Bld) 3.3 % Normal 0-5 [facility] Work Phone: Comment on above: [facility] [address] [place], [place], [address] ; fu 5-25 kf Erythrocyte distribution width Ratio (RBC) 13.8 % Normal 11.6-14.6 [facility] Work Phone: Comment on above: [facility] [address] [place], [place], [address] ; fu 5-25 kf Hematocrit Volume Fraction (Bld) 47.3 % Normal 40-54 [facility] Work Phone: Comment on above: [facility] [address] [place], [place], [address] ; fu 5-25 kf Hemoglobin mass conc (Bld) 16.2 g/dL Normal 13.0-16.5 [facility] Work Phone: Comment on above: [facility] [address] [place], [place], [address] ; fu 5-25 kf IM GRAN % 0.100 % Normal 0.0-0.9 [facility] Work Phone: Comment on above: IG% - Immature Granu locytes (promyelocytes, myelocytes andmetamyelocytes) > 1% indicates that a LEFT SHIFT is Present. [facility] [address] [place], [place], [address] ; fu 5-25 kf Lymphocytes #/vol (Bld) 2.07 {X10_3/ul} Normal 0.83-4.51 [facility] Work Phone: Comment on above: [facility] [address] [place], [place], [phone] ; fu 5-25 kf Lymphocytes/100 WBC (Bld) 23.8 % Normal 19-41 [facility] Work Phone: Comment on above: [facility] [address] [place], [place], [address] ; fu 5-25 kf MCH Entitic mass (RBC) 32.0 pg Normal 27.0-32.0 [facility] Work Phone: Comment on above: [facility] [address] [place], [place], [phone] ; fu 5-25 kf MCHC mass conc (RBC) 34.2 {g/gl} Normal 32-36 [facility] prehensive Internal Medicine Work Phone: Comment on above: [facility] [address] [place], [place], [address] ; fu 5-25 kf MCV Entitic volume (RBC) 93.3 fL Normal 80-94 [facility] Work Phone: Comment on above: [facility] [address] [place], [place], [address] ; fu 5-25 kf Monocytes/100 WBC (Bld) 6.0 % Normal 0-10 [facility] Work Phone: Comment on above: [facility] [address] [place], [place], [phone] ; fu 5-25 kf Neutrophils/100 WBC (Bld) 66.5 % Normal 47-70 [facility] Work Phone: Comment on above: [facility] [address] [place], [place], [address] ; fu 5-25 kf Platelet mean volume Entitic volume (Bld) 8.6 fL Normal 6.2-12.0 Comprehensi ve Internal Medicine Work Phone: Comment on above: [facility] [address] [place], [place], [phone] ; fu 5-25 kf Platelets #/vol (Bld) 210 10*3/uL Normal 150-450 Co mprehensive Internal Medicine Work Phone: Comment on above: [facility] [address] [place], [place], [address] ; fu 5-25 kf RBC #/vol (Bld) 5.07 {M/mm3} Normal 4.6-6.2 Compreh ensive Internal Medicine Work Phone: Comment on above: [facility] [address] [place], [place], [address] ; fu 5-25 kf RDW SD 45.2 fL Abnormal 35.1-43.9 [facility] Work Phone: Comment on above: [facility] [address] [place], [place], [address] ; fu 5-25 kf WBC #/vol (Bld) 8.7 10*3/uL Normal 4.4-11.0 Comprehe nsive Internal Medicine Work Phone: Comment on above: [facility] [address] [place], [place], [address] ; fu 5-25 kf CBC W/Diff, Automated 0.100 % Normal 0.0-0.9 Com prehensive Internal Medicine Work Phone: Comment on above: IG% - Immature Granu locytes (promyelocytes, myelocytes andmetamyelocytes) > 1% indicates that a LEFT SHIFT is Present. CBC W/Diff, Automated 0.3 % Normal 0-1 [facility] prehensive Internal Medicine Work Phone: CBC W/Diff, Automated 3.3 % Normal 0-5 [facility] prehensive Internal Medicine Work Phone: CBC W/Diff, Automated 6.0 % Normal 0-10 [facility] prehensive Internal Medicine Work Phone: CBC W/Diff, Automated 23.8 % Normal 19-41 [facility] prehensive Internal Medicine Work Phone: CBC W/Diff, Automated 66.5 % Normal 47-70 [facility] prehensive Internal Medicine Work Phone: CBC W/Diff, Automated 8.6 fL Normal 6.2-12.0 [facility] prehensive Internal Medicine Work Phone: CBC W/Diff, Automated 210 K/mm3 Normal 150-450 [facility] prehensive Internal Medicine Work Phone: CBC W/Diff, Automated 45.2 fL Abnormal 35.1-43.9 [facility] prehensive Internal Medicine Work Phone: CBC W/Diff, Automated 13.8 % Normal 11.6-14.6 [facility] Work Phone: CBC W/Diff, Automated 34.2 {g/gl} Normal 32-36 [facility] Work Phone: CBC W/Diff, Automated 32.0 pg Normal 27.0-32.0 [facility] prehensive Internal Medicine Work Phone: CBC W/Diff, Automated 93.3 fL Normal 80-94 [facility] prehensive Internal Medicine Work Phone: CBC W/Diff, Automated 47.3 % Normal 40-54 [facility] prehensive Internal Medicine Work Phone: CBC W/Diff, Automated 16.2 g/dL Normal 13.0-16.5 [facility] prehensive Internal Medicine Work Phone: CBC W/Diff, Automated 5.07 {M/mm3} Normal 4.6-6.2 C omprehensive Internal Medicine Work Phone: CBC W/Diff, Automated 8.7 K/mm3 Normal 4.4-11.0 Com prehensive Internal Medicine Work Phone: CBC W/Diff, Automated 2.07 {X10_3/ul} Normal 0.83-4.51 [facility] Work Phone: CBC W/Diff, Automated 5.8 {X10_3/uL} Normal 2.0-7.7 [facility] Work Phone: Comprehensive Metabolic Prof ilOrdered By: Quality Compliance Coordinator on 10-07-2016 Comprehensive metabolic 2000 panel 8.5 mg/dL Normal 8.5-10.1 Comprehensi ve Internal Medicine Work Phone: Comment on above: [facility] [address] [place], [place], [phone] Comprehensive metabolic 2000 panel 113 mg/dL Abnormal 70-110 Comprehensi ve Internal Medicine Work Phone: Comment on above: Fasting Glucose resu lt from 110 to <126 mg/dLsuggests IMPAIRED HOMEOSTASIS per A.D.A. criteria. [facility] [address] [place], [place], [phone] Comprehensive metabolic 2000 panel 108 mL/min Normal Comprehensi ve Internal Medicine Work Phone: Comment on above: Non- GFR Calc [facility] [address] [place], [place], [address] Comprehensive metabolic 2000 panel 131 mL/min Normal Comprehensi ve Internal Medicine Work Phone: Comment on above: GFR Calc [facility] [address] [place], [place], [phone] Comprehensive metabolic 2000 panel 12 mg/dL Normal 7-18 Comprehensi ve Internal Medicine Work Phone: Comment on above: [facility] [address] [place], [place], [address] Comprehensive metabolic 2000 panel 15.7 {RATIO} Normal 10-20 Comprehensi ve Internal Medicine Work Phone: Comment on above: [facility] [address] [place], [place], [address] Comprehensive metabolic 2000 panel 6.7 g/dL Normal 6.4-8.2 Comprehensi ve Internal Medicine Work Phone: Comment on above: [facility] [address] [place], [place], [phone] Comprehensive metabolic 2000 panel 3.6 g/dL Normal 3.4-5.0 Comprehensi ve Internal Medicine Work Phone: Comment on above: [facility] [address] [place], [place], [address] Comprehensive metabolic 2000 panel 3.1 g/dL Normal 2.3-3.5 Comprehensi ve Internal Medicine Work Phone: Comment on above: [facility] [address] [place], [place], [address] Comprehensive metabolic 2000 panel 1.2 {RATIO} Normal 0.9-2.4 Comprehensi ve Internal Medicine Work Phone: Comment on above: [facility] [address] [place], [place], [address] Comprehensive metabolic 2000 panel 0.76 mg/dL Normal 0.70-1.30 Comprehensi ve Internal Medicine Work Phone: Comment on above: The validity of the calculated GFR AND GFRAA in patients over70 years has not been determined. Clinical correlation isessential. [facility] [address] [place], [place], [phone] Comprehensive metabolic 2000 panel 18 U/L Normal 15-37 Comprehensi ve Internal Medicine Work Phone: Comment on above: [facility] [address] [place], [place], [address] Comprehensive metabolic 2000 panel 50 U/L Normal 45-117 Comprehensi ve Internal Medicine Work Phone: Comment on above: [facility] [address] [place], [place], [address] Comprehensive metabolic 2000 panel 35 U/L Normal 12-78 Comprehensi ve Internal Medicine Work Phone: Comment on above: [facility] [address] [place], [place], [address] Comprehensive metabolic 2000 panel 0.40 mg/dL Normal 0.20-1.00 Comprehensi ve Internal Medicine Work Phone: Comment on above: [facility] [address] [place], [place], [address] Comprehensive metabolic 2000 panel 141 mmol/L Normal 136-145 Comprehensi ve Internal Medicine Work Phone: Comment on above: [facility] [address] [place], [place], [address] Comprehensive metabolic 2000 panel 4.4 mmol/L Normal 3.5-5.1 Comprehensi ve Internal Medicine Work Phone: Comment on above: [facility] [address] [place], [place], [address] Comprehensive metabolic 2000 panel 106 mmol/L Normal 98-107 Comprehensi ve Internal Medicine Work Phone: Comment on above: [facility] [address] [place], [place], [address] Comprehensive metabolic 2000 panel 31.0 mmol/L Normal 21.0-32.0 Comprehensi ve Internal Medicine Work Phone: Comment on above: [facility] [address] [place], [place], [address] Comprehensive metabolic 2000 panel 4 1 Abnormal 5-15 Comprehensi ve Internal Medicine Work Phone: Comment on above: [facility] [address] [place], [place], [address] Lipid ProfileOrdered By: Martinez tem Paid Search Specialist on 10-07-2016 Cholesterol in HDL mass conc 41 mg/dL Normal [facility] Work Phone: Comment on above: The drugs N-Acetylcy steine and Metamizole may falsely deressthis assay. Reference Range HDL <40 mg/dL Low HDL Cholesterol HDL >or= 60 mg/dL High HDL Cholesterol [facility] [address] [place], [address] Cholesterol in LDL mass conc 101 mg/dL Normal 0-130 [facility] Work Phone: Comment on above: [facility] [address] [place], [place], [address] Cholesterol in VLDL mass conc 38 mg/dL Normal 5-40 [facility] Work Phone: Comment on above: [facility] [address] [place], [place], [address] Cholesterol mass conc 180 mg/dL Normal Com prehensive Internal Medicine Work Phone: Comment on above: <200 mg/dL Desirable 200-240 mg/dL Borderline >240 mg/dL High Risk [facility] [address] [place], [place], [address] Triglyceride mass conc 190 mg/dL Normal [facility] Work Phone: Comment on above: The drugs N-Acetylcy steine and Metamizole may falsely deressthis assay.Serum Triglycerides Reference Interval Normal <150 mg/dL Borderline high 150 - 199 mg/dL High 200 - 499 mg/dL Very High > or = 500 mg/dL [facility] [address] [place], [place], [address] Lipid Profile 180 mg/dL Normal Comprehensi ve Internal Medicine Work Phone: Comment on above: <200 mg/dL Desirable 200-240 mg/dL Borderline >240 mg/dL High Risk Lipid Profile 101 mg/dL Normal 0-130 Comprehensi ve Internal Medicine Work Phone: Lipid Profile 41 mg/dL Normal Comprehensi ve Internal Medicine Work Phone: Comment on above: The drugs N-Acetylcy steine and Metamizole may falsely deressthis assay. Reference Range HDL <40 mg/dL Low HDL Cholesterol HDL >or= 60 mg/dL High HDL Cholesterol Lipid Profile 190 mg/dL Normal Comprehensi ve Internal Medicine Work Phone: Comment on above: The drugs N-Acetylcy steine and Metamizole may falsely deressthis assay.Serum Triglycerides Reference Interval Normal <150 mg/dL Borderline high 150 - 199 mg/dL High 200 - 499 mg/dL Very High > or = 500 mg/dL Lipid Profile 38 mg/dL Normal 5-40 Comprehensi ve Internal Medicine Work Phone: MicroalbOrdered By: Tammy granados on 10-07-2016 Microalb Test not performed Normal [facility] Work Phone: Comment on above: [facility] [address] [place], [place], [phone] Microalb < 5.0 Normal [facility] Work Phone: Comment on above: [facility] [address] [place], [place], [address] Microalb 66.40 mg/dL Normal [facility] Work Phone: Comment on above: [facility] [address] [place], [place], [address] Thyroid Stim Hormone (TSH)Or dered By: Quality Compliance Coordinator on 10-07-2016 Thyrotropin Qn 1.67 {uIU/mL} Normal 0.358-3.74 Compreh ensive Internal Medicine Work Phone: Comment on above: [facility] [address] [place], [place], [address] Urinalysis, CompleteOrdered By: Quality Compliance Coordinator on 10-07-2016 Protein mass conc (U) Negative Normal Com prehensive Internal Medicine Work Phone: Comment on above: How was Urine Obtain ed? [facility] [address] [place], [address] RBC #/vol (U) 0 SEEN Normal 0-5 Comprehensi ve Internal Medicine Work Phone: Comment on above: How was Urine Obtain ed? [facility] [address] [place], [address] RBC Test strip #/vol (U) 0 SEEN Normal 0-5 [facility] Work Phone: Urinalysis complete panel - Urine 0 SEEN Normal 0-5 [facility] Work Phone: Comment on above: How was Urine Obtain ed? [facility] [address] [place], [address] Urinalysis complete panel - Urine 0-5 SEEN Normal 0-5 [facility] Work Phone: Comment on above: How was Urine Obtain ed? [facility] [address] [place], [address] Urinalysis complete panel - Urine 25 /ul Abnormal [facility] Work Phone: Comment on above: How was Urine Obtain ed? [facility] [address] [place], [address] Urinalysis complete panel - Urine Negative Normal [facility] Work Phone: Comment on above: How was Urine Obtain ed? [facility] [address] [place], [address] Urinalysis complete panel - Urine Normal Normal [facility] Work Phone: Comment on above: How was Urine Obtain ed? [facility] [address] [place], [address] Urinalysis complete panel - Urine 8.0 1 Normal 5.0 - 8.0 [facility] Work Phone: Comment on above: How was Urine Obtain ed? [facility] [address] [place], [address] Urinalysis complete panel - Urine 1.010 1 Normal 1.002-1.030 [facility] Work Phone: Comment on above: How was Urine Obtain ed? [facility] [address] [place], [address] Urinalysis complete panel - Urine Clear Normal [facility] Work Phone: Comment on above: How was Urine Obtain ed? [facility] [address] [place], [address] Urinalysis complete panel - Urine Yellow Normal [facility] Work Phone: Comment on above: How was Urine Obtain ed? [facility] [address] [place], [place], [address] Vitamin D,25 HydroxyOrdered By: Quality Compliance Coordinator on 10-07-2016 Vitamin D,25 Hydroxy 49.8 ng/mL Normal Comp rehensive Internal Medicine Work Phone: Comment on above: Vitamin D 25(OH) Sta tus Range Deficiency <20 ng/mL (50nmol/L) Insuffciency 20 - 30 ng/mL (50 - 75 nmol/L) Sufficiency 30 - 100 ng/mL (75 - 250 nmol/L) Toxicity >100 ng/mL (>250 nmol/L) [facility] [address] [place], [place], [phone] HgA1C , Office ([phone])Ordere d By: Antonia Jeffers on 06-11-2016 Hemoglobin A1c/Hemoglobin.total mass fraction (Bld) 6.2 % Normal 4.6 - 7.1 Comprehensiv e Internal Medicine Work Phone: Blood Glucose , Office ([phone])Ordered By: Verna Canchola on 03-10-2016 Glucose Glucometer molar conc (BldC) 121 1 Normal [facility] Work Phone: HgA1C , Office ([phone])Ordere d By: Verna Canchola on 03-10-2016 Hemoglobin A1c/Hemoglobin.total mass fraction (Bld) 6.0 % Normal 4.6 - 7.1 Comprehensiv e Internal Medicine Work Phone: CBC W/Diff, AutomatedOrdered By: Quality Compliance Coordinator on 03-03-2016 Absolute Neut 4.3 {X10_3/uL} Normal 2.0-7.7 Compreh ensive Internal Medicine Work Phone: Comment on above: [facility] [address] [place], [place], [phone] Basophils/100 WBC (Bld) 0.3 % Normal 0-1 [facility] Work Phone: Comment on above: [facility] [address] [place], [address] Eosinophils/100 WBC (Bld) 4.4 % Normal 0-5 [facility] Work Phone: Comment on above: [facility] [address] [place], [place], [address] Erythrocyte distribution width Ratio (RBC) 13.2 % Normal 11.6-14.6 [facility] Work Phone: Comment on above: [facility] [address] [place], [address] Hematocrit Volume Fraction (Bld) 46.1 % Normal 40-54 [facility] Work Phone: Comment on above: [facility] [address] [place], [place], [phone] Hemoglobin mass conc (Bld) 15.7 g/dL Normal 13.0-16.5 [facility] Work Phone: Comment on above: [facility] [address] [place], [address] IM GRAN % 0.000 % Normal 0.0-0.9 [facility] Work Phone: Comment on above: IG% - Immature Granu locytes (promyelocytes, myelocytes andmetamyelocytes) > 1% indicates that a LEFT SHIFT is Present. [facility] [address] [place], [place], [phone] Lymphocytes #/vol (Bld) 2.15 {X10_3/ul} Normal 0.83-4.51 [facility] Work Phone: Comment on above: [facility] [address] [place], [address] Lymphocytes/100 WBC (Bld) 29.4 % Normal 19-41 [facility] Work Phone: Comment on above: [facility] [address] [place], [address] MCH Entitic mass (RBC) 32.6 pg Abnormal 27.0-32.0 [facility] Work Phone: Comment on above: [facility] [address] [place], [address] MCHC mass conc (RBC) 34.1 {g/gl} Normal 32-36 [facility] prehensive Internal Medicine Work Phone: Comment on above: [facility] [address] [place], [address] MCV Entitic volume (RBC) 95.8 fL Abnormal 80-94 [facility] Work Phone: Comment on above: [facility] [address] [place], [address] Monocytes/100 WBC (Bld) 7.0 % Normal 0-10 [facility] Work Phone: Comment on above: [facility] [address] [place], [address] Neutrophils/100 WBC (Bld) 58.9 % Normal 47-70 [facility] Work Phone: Comment on above: [facility] [address] [place], [address] Platelet mean volume Entitic volume (Bld) 8.8 fL Normal 6.2-12.0 Comprehensi ve Internal Medicine Work Phone: Comment on above: [facility] [address] [place], [address] Platelets #/vol (Bld) 182 10*3/uL Normal 150-450 Co mprehensive Internal Medicine Work Phone: Comment on above: [facility] [address] [place], [address] RBC #/vol (Bld) 4.81 {M/mm3} Normal 4.6-6.2 Compreh ensive Internal Medicine Work Phone: Comment on above: [facility] [address] [place], [address] RDW SD 46.3 fL Abnormal 35.1-43.9 [facility] Work Phone: Comment on above: [facility] [address] [place], [address] WBC #/vol (Bld) 7.3 10*3/uL Normal 4.4-11.0 Comprehe nsive Internal Medicine Work Phone: Comment on above: [facility] [address] [place], [address] CBC W/Diff, Automated 13.2 % Normal 11.6-14.6 [facility] prehensive Internal Medicine Work Phone: CBC W/Diff, Automated 2.15 {X10_3/ul} Normal 0.83-4.51 [facility] Work Phone: CBC W/Diff, Automated 4.3 {X10_3/uL} Normal 2.0-7.7 [facility] Work Phone: CBC W/Diff, Automated 0.000 % Normal 0.0-0.9 [facility] prehensive Internal Medicine Work Phone: Comment on above: IG% - Immature Granu locytes (promyelocytes, myelocytes andmetamyelocytes) > 1% indicates that a LEFT SHIFT is Present. CBC W/Diff, Automated 0.3 % Normal 0-1 Com prehensive Internal Medicine Work Phone: CBC W/Diff, Automated 4.4 % Normal 0-5 [facility] prehensive Internal Medicine Work Phone: CBC W/Diff, Automated 7.0 % Normal 0-10 [facility] prehensive Internal Medicine Work Phone: CBC W/Diff, Automated 29.4 % Normal 19-41 [facility] prehensive Internal Medicine Work Phone: CBC W/Diff, Automated 58.9 % Normal 47-70 [facility] prehensive Internal Medicine Work Phone: CBC W/Diff, Automated 8.8 fL Normal 6.2-12.0 [facility] prehensive Internal Medicine Work Phone: CBC W/Diff, Automated 182 K/mm3 Normal 150-450 [facility] prehensive Internal Medicine Work Phone: CBC W/Diff, Automated 46.3 fL Abnormal 35.1-43.9 [facility] Work Phone: CBC W/Diff, Automated 34.1 {g/gl} Normal 32-36 [facility] Work Phone: CBC W/Diff, Automated 32.6 pg Abnormal 27.0-32.0 [facility] prehensive Internal Medicine Work Phone: CBC W/Diff, Automated 95.8 fL Abnormal 80-94 [facility] prehensive Internal Medicine Work Phone: CBC W/Diff, Automated 46.1 % Normal 40-54 [facility] prehensive Internal Medicine Work Phone: CBC W/Diff, Automated 15.7 g/dL Normal 13.0-16.5 [facility] prehensive Internal Medicine Work Phone: CBC W/Diff, Automated 4.81 {M/mm3} Normal 4.6-6.2 C omprehensive Internal Medicine Work Phone: CBC W/Diff, Automated 7.3 K/mm3 Normal 4.4-11.0 Com prehensive Internal Medicine Work Phone: Comprehensive Metabolic Prof ilOrdered By: Quality Compliance Coordinator on 03-03-2016 Comprehensive metabolic 2000 panel 2 1 Abnormal 5-15 Comprehensi ve Internal Medicine Work Phone: Comment on above: [facility] [address] [place], [place], [address] Comprehensive metabolic 2000 panel 30 U/L Normal 12-78 Comprehensi ve Internal Medicine Work Phone: Comment on above: [facility] [address] [place], [place], [address] Comprehensive metabolic 2000 panel 44 U/L Abnormal 50-136 Comprehensi ve Internal Medicine Work Phone: Comment on above: [facility] [address] [place], [place], [address] Comprehensive metabolic 2000 panel 22 U/L Normal 15-37 Comprehensi ve Internal Medicine Work Phone: Comment on above: [facility] [address] [place], [place], [address] Comprehensive metabolic 2000 panel 1.3 {RATIO} Normal 0.9-2.4 Comprehensi ve Internal Medicine Work Phone: Comment on above: [facility] [address] [place], [place], [address] Comprehensive metabolic 2000 panel 8.4 mg/dL Abnormal 8.5-10.1 Comprehensi ve Internal Medicine Work Phone: Comment on above: [facility] [address] [place], [place], [address] Comprehensive metabolic 2000 panel 107 mmol/L Normal 98-107 Comprehensi ve Internal Medicine Work Phone: Comment on above: [place] [facility] [address] [place], [place], [address] Comprehensive metabolic 2000 panel 2.8 g/dL Normal 2.3-3.5 Comprehensi ve Internal Medicine Work Phone: Comment on above: [facility] [address] [place], [place], [address] Comprehensive metabolic 2000 panel 3.9 mmol/L Normal 3.5-5.1 Comprehensi ve Internal Medicine Work Phone: Comment on above: [facility] sp[facility] [address] [place], [place], [phone] Comprehensive metabolic 2000 panel 30.0 mmol/L Normal 21.0-32.0 Comprehensi ve Internal Medicine Work Phone: Comment on above: [facility] [address] [place], [place], [phone] Comprehensive metabolic 2000 panel 139 mmol/L Normal 136-145 Comprehensi ve Internal Medicine Work Phone: Comment on above: [facility] [address] [place], [place], [phone] Comprehensive metabolic 2000 panel 3.7 g/dL Normal 3.4-5.0 Comprehensi ve Internal Medicine Work Phone: Comment on above: [facility] [address] [place], [place], [phone] Comprehensive metabolic 2000 panel 6.5 g/dL Normal 6.4-8.2 Comprehensi ve Internal Medicine Work Phone: Comment on above: [facility] [address] [place], [place], [phone] Comprehensive metabolic 2000 panel 14.4 {RATIO} Normal 10-20 Comprehensi ve Internal Medicine Work Phone: Comment on above: [facility] sp[facility] [address] [place], [place], [phone] Comprehensive metabolic 2000 panel 146 mL/min Normal Comprehensi ve Internal Medicine Work Phone: Comment on above: [facility]c [facility] [address] [place], [place], [phone] Comprehensive metabolic 2000 panel 121 mL/min Normal Comprehensi ve Internal Medicine Work Phone: Comment on above: Non- [facility] Calc [facility] [address] [place], [place], [phone] Comprehensive metabolic 2000 panel 0.69 mg/dL Abnormal 0.70-1.30 Comprehensi ve Internal Medicine Work Phone: Comment on above: The validity of the calculated GFR AND GFRAA in patients over70 years has not been determined. Clinical correlation isessential. [facility] [address] [place], [place], [phone] Comprehensive metabolic 2000 panel 10 mg/dL Normal 7-18 Comprehensi ve Internal Medicine Work Phone: Comment on above: [facility] [address] [place], [place], [address] Comprehensive metabolic 2000 panel 105 mg/dL Normal 70-110 Comprehensi ve Internal Medicine Work Phone: Comment on above: [facility] [address] [place], [place], [phone] Comprehensive metabolic 2000 panel 0.50 mg/dL Normal 0.20-1.00 Comprehensi ve Internal Medicine Work Phone: Comment on above: [facility] [address] [place], [place], [phone] Lipid ProfileOrdered By: Martinez tem Paid Search Specialist on 03-03-2016 Cholesterol in HDL mass conc 45 mg/dL Normal [facility] Work Phone: Comment on above: The drugs N-Acetylcy steine and Metamizole may falsely deressthis assay. Reference Range HDL <40 mg/dL Low HDL Cholesterol HDL >or= 60 mg/dL High HDL Cholesterol [facility] [address] [place], [address] Cholesterol in LDL mass conc 80 mg/dL Normal 0-130 [facility] Work Phone: Comment on above: [facility] [address] [place], [address] Cholesterol in VLDL mass conc 24 mg/dL Normal 5-40 [facility] Work Phone: Comment on above: [facility] [address] [place], [address] Cholesterol mass conc 149 mg/dL Normal Com prehensive Internal Medicine Work Phone: Comment on above: <200 mg/dL Desirable 200-240 mg/dL Borderline >240 mg/dL High Risk [facility] [address] [place], [place], [phone] Triglyceride mass conc 122 mg/dL Normal [facility] Work Phone: Comment on above: The drugs N-Acetylcy steine and Metamizole may falsely deressthis assay.Serum Triglycerides Reference Interval Normal <150 mg/dL Borderline high 150 - 199 mg/dL High 200 - 499 mg/dL Very High > or = 500 mg/dL [facility] [address] [place], [place], [phone] Lipid Profile 24 mg/dL Normal 5-40 Comprehensi ve Internal Medicine Work Phone: Lipid Profile 80 mg/dL Normal 0-130 Comprehensi ve Internal Medicine Work Phone: Lipid Profile 45 mg/dL Normal Comprehensi ve Internal Medicine Work Phone: Comment on above: The drugs N-Acetylcy steine and Metamizole may falsely deressthis assay. Reference Range HDL <40 mg/dL Low HDL Cholesterol HDL >or= 60 mg/dL High HDL Cholesterol Lipid Profile 122 mg/dL Normal Comprehensi ve Internal Medicine Work Phone: Comment on above: The drugs N-Acetylcy steine and Metamizole may falsely deressthis assay.Serum Triglycerides Reference Interval Normal <150 mg/dL Borderline high 150 - 199 mg/dL High 200 - 499 mg/dL Very High > or = 500 mg/dL Lipid Profile 149 mg/dL Normal Comprehensi ve Internal Medicine Work Phone: Comment on above: <200 mg/dL Desirable 200-240 mg/dL Borderline >240 mg/dL High Risk MicroalbOrdered By: Tammy granados on 03-03-2016 Microalb 5.9 {mg/g_CRE} Normal Comprehens kaitlin Internal Medicine Work Phone: Comment on above: [facility] [address] [place], [place], [phone] Microalb 7.7 mg/L Normal [facility] Work Phone: Comment on above: [facility] [address] [place], [place], [phone] Microalb 131.00 mg/dL Normal Comprehensiv e Internal Medicine Work Phone: Comment on above: [facility] [address] [place], [place], [phone] PSA,Total - Annual ScreenOrd ered By: Quality Compliance Coordinator on 03-03-2016 Prostate specific Ag mass conc 0.68 ng/mL Normal 0.00-4.00 [facility] Work Phone: Comment on above: This test was perfor med using the TPSA assay method for the[facility] chemistry system. Values obtained with differentassay methods cannot be used interchangably.When changing PSA assays in the course of monitoring apatient, additional sequential testing should be carriedout to confirm baseline values. [facility] [address] [place], [place], [phone] Thyroid Stim Hormone (TSH)Or dered By: Quality Compliance Coordinator on 03-03-2016 Thyrotropin Qn 1.15 {uIU/mL} Normal 0.358-3.74 Compreh ensive Internal Medicine Work Phone: Comment on above: [facility] [address] [place], [place], [phone] Urinalysis, Routine (Dipstic k)Ordered By: Quality Compliance Coordinator on 03-03-2016 Urinalysis, Routine (Dipstick) Yellow Normal [facility] Work Phone: Comment on above: How was Urine Obtain ed? [facility] [address] [place], [address] Urinalysis, Routine (Dipstick) Negative Normal [facility] Work Phone: Comment on above: How was Urine Obtain ed? [facility] [address] [place], [address] Urinalysis, Routine (Dipstick) 10 /ul Abnormal [facility] Work Phone: Comment on above: How was Urine Obtain ed? [facility] [address] [place], [address] Urinalysis, Routine (Dipstick) Normal Normal [facility] Work Phone: Comment on above: How was Urine Obtain ed? [facility] [address] [place], [address] Urinalysis, Routine (Dipstick) 8.0 1 Normal 5.0 - 8.0 [facility] Work Phone: Comment on above: How was Urine Obtain ed? [facility] [address] [place], [address] Urinalysis, Routine (Dipstick) 1.015 1 Normal 1.002-1.030 [facility] Work Phone: Comment on above: How was Urine Obtain ed? [facility] [address] [place], [address] Urinalysis, Routine (Dipstick) Clear Normal [facility] Work Phone: Comment on above: How was Urine Obtain ed? [facility]AN [facility] [address] [place], [phone] Vitamin D,25 HydroxyOrdered By: Quality Compliance Coordinator on 03-03-2016 Vitamin D,25 Hydroxy 30.3 ng/mL Normal Comp rehensive Internal Medicine Work Phone: Comment on above: Vitamin D 25(OH) Sta tus Range Deficiency <20 ng/mL (50nmol/L) Insuffciency 20 - 30 ng/mL (50 - 75 nmol/L) Sufficiency 30 - 100 ng/mL (75 - 250 nmol/L) Toxicity >100 ng/mL (>250 nmol/L) [facility] [address] [place], [phone] HgA1C , Office ([phone])Ordere d By: Silke Chavez on 07-16-2015 Hemoglobin A1c/Hemoglobin.total mass fraction (Bld) 6.4 % Normal 4.6 - 7.1 Comprehensiv e Internal Medicine Work Phone: CBC W/Diff, AutomatedOrdered By: Quality Compliance Coordinator on 07-13-2015 Absolute Neut 6.1 {X10_3/uL} Normal 2.0-7.7 Compreh ensive Internal Medicine Work Phone: Comment on above: [facility] [address] [place], [address] Basophils/100 WBC (Bld) 0.2 % Normal 0-1 [facility] Work Phone: Comment on above: [facility] [address] [place], [phone] Eosinophils/100 WBC (Bld) 2.7 % Normal 0-5 [facility] Work Phone: Comment on above: [facility] [address] [place], [phone] Erythrocyte distribution width Ratio (RBC) 13.0 % Normal 11.6-14.6 [facility] Work Phone: Comment on above: [facility] [address] [place], [place], [phone] Hematocrit Volume Fraction (Bld) 47.9 % Normal 40-54 [facility] Work Phone: Comment on above: [facility] [address] [place], [place], [phone] Hemoglobin mass conc (Bld) 16.3 g/dL Normal 13.0-16.5 [facility] Work Phone: Comment on above: [facility] [address] [place], [place], [phone] IM GRAN % 0.200 % Normal 0.0-0.9 [facility] Work Phone: Comment on above: IG% - Immature Granu locytes (promyelocytes, myelocytes andmetamyelocytes) > 1% indicates that a LEFT SHIFT is Present. [facility] [address] [place], [place], [phone] Lymphocytes #/vol (Bld) 1.71 {X10_3/ul} Normal 0.83-4.51 [facility] Work Phone: Comment on above: [facility] [address] [place], [address] Lymphocytes/100 WBC (Bld) 19.5 % Normal 19-41 [facility] Work Phone: Comment on above: [place] [address] [place], [address] MCH Entitic mass (RBC) 32.5 pg Abnormal 27.0-32.0 [facility] Work Phone: Comment on above: [facility] [address] [place], [address] MCHC mass conc (RBC) 34.0 {g/gl} Normal 32-36 Com prehensive Internal Medicine Work Phone: Comment on above: [place] [facility] [address] [place], [address] MCV Entitic volume (RBC) 95.6 fL Abnormal 80-94 [facility] Work Phone: Comment on above: [facility] [address] [place], [address] Monocytes/100 WBC (Bld) 7.7 % Normal 0-10 [facility] Work Phone: Comment on above: [facility] [address] [place], [address] Neutrophils/100 WBC (Bld) 69.7 % Normal 47-70 [facility] Work Phone: Comment on above: [facility] [address] [place], [address] Platelet mean volume Entitic volume (Bld) 8.8 fL Normal 6.2-12.0 Comprehensi Internal Medicine Work Phone: Comment on above: [facility] [address] [place], [address] Platelets #/vol (Bld) 265 10*3/uL Normal 150-450 [facility] Internal Medicine Work Phone: Comment on above: [facility] [address] [place], [address] RBC #/vol (Bld) 5.01 {M/mm3} Normal 4.6-6.2 [facility] Work Phone: Comment on above: [facility] [address] [place], [address] RDW SD 45.0 fL Abnormal 35.1-43.9 [facility] Internal Medicine Work Phone: Comment on above: [facility] [address] [place], [address] WBC #/vol (Bld) 8.8 10*3/uL Normal 4.4-11.0 Comprehe nsive Internal Medicine Work Phone: Comment on above: [facility] [address] [place], [address] CBC W/Diff, Automated 6.1 {X10_3/uL} Normal 2.0-7.7 [facility] Work Phone: CBC W/Diff, Automated 0.200 % Normal 0.0-0.9 Com prehensive Internal Medicine Work Phone: Comment on above: IG% - Immature Granu locytes (promyelocytes, myelocytes andmetamyelocytes) > 1% indicates that a LEFT SHIFT is Present. CBC W/Diff, Automated 0.2 % Normal 0-1 Com prehensive Internal Medicine Work Phone: CBC W/Diff, Automated 2.7 % Normal 0-5 Com prehensive Internal Medicine Work Phone: CBC W/Diff, Automated 7.7 % Normal 0-10 [facility] prehensive Internal Medicine Work Phone: CBC W/Diff, Automated 19.5 % Normal 19-41 Com prehensive Internal Medicine Work Phone: CBC W/Diff, Automated 69.7 % Normal 47-70 [facility] prehensive Internal Medicine Work Phone: CBC W/Diff, Automated 8.8 fL Normal 6.2-12.0 [facility] prehensive Internal Medicine Work Phone: CBC W/Diff, Automated 265 K/mm3 Normal 150-450 [facility] prehensive Internal Medicine Work Phone: CBC W/Diff, Automated 45.0 fL Abnormal 35.1-43.9 Com prehensive Internal Medicine Work Phone: CBC W/Diff, Automated 13.0 % Normal 11.6-14.6 [facility] prehensive Internal Medicine Work Phone: CBC W/Diff, Automated 34.0 {g/gl} Normal 32-36 [facility] Work Phone: CBC W/Diff, Automated 32.5 pg Abnormal 27.0-32.0 Com prehensive Internal Medicine Work Phone: CBC W/Diff, Automated 95.6 fL Abnormal 80-94 Com prehensive Internal Medicine Work Phone: CBC W/Diff, Automated 47.9 % Normal 40-54 Com prehensive Internal Medicine Work Phone: CBC W/Diff, Automated 16.3 g/dL Normal 13.0-16.5 Com prehensive Internal Medicine Work Phone: CBC W/Diff, Automated 5.01 {M/mm3} Normal 4.6-6.2 C omprehensive Internal Medicine Work Phone: CBC W/Diff, Automated 8.8 K/mm3 Normal 4.4-11.0 Com prehensive Internal Medicine Work Phone: CBC W/Diff, Automated 1.71 {X10_3/ul} Normal 0.83-4.51 [facility] Work Phone: Comprehensive Metabolic Prof ilOrdered By: Quality Compliance Coordinator on 07-13-2015 Comprehensive metabolic 2000 panel 0.85 mg/dL Normal 0.70-1.30 Comprehensi ve Internal Medicine Work Phone: Comment on above: The validity of the calculated GFR AND GFRAA in patients over70 years has not been determined. Clinical correlation isessential. [facility] [address] [place], [place], [phone] ; [address] 2[address]29 Comprehensive metabolic 2000 panel 96 mL/min Normal Comprehensi ve Internal Medicine Work Phone: Comment on above: Non- [facility] Calc [facility] [address] [place], [place], [phone] ; apt. 2-29 Comprehensive metabolic 2000 panel 116 mL/min Normal Comprehensi ve Internal Medicine Work Phone: Comment on above: [facility] Calc [facility] [address] [place], [place], [phone] ; apt. 2-29 Comprehensive metabolic 2000 panel 16.5 {RATIO} Normal 10-20 Comprehensi ve Internal Medicine Work Phone: Comment on above: [facility] [address] [place], [address] ; [address] 2-29 Comprehensive metabolic 2000 panel 7.1 g/dL Normal 6.4-8.2 Comprehensi ve Internal Medicine Work Phone: Comment on above: [facility] [address] [place], [address] ; apt[address] 2-29 Comprehensive metabolic 2000 panel 3.7 g/dL Normal 3.4-5.0 Comprehensi ve Internal Medicine Work Phone: Comment on above: [facility] [address] [place], [address] ; [address] 2-29 Comprehensive metabolic 2000 panel 3.4 g/dL Normal 2.3-3.5 Comprehensi ve Internal Medicine Work Phone: Comment on above: [facility] [address] [place], [address] ; [address] 2-29 Comprehensive metabolic 2000 panel 1.1 {RATIO} Normal 0.9-2.4 Comprehensi ve Internal Medicine Work Phone: Comment on above: [facility] [address] [place], [address] ; [address] Comprehensive metabolic 2000 panel 8.7 mg/dL Normal 8.5-10.1 Comprehensi ve Internal Medicine Work Phone: Comment on above: [facility] [address] [place], [address] ; [address] 2-29 Comprehensive metabolic 2000 panel 22 U/L Normal 15-37 Comprehensi ve Internal Medicine Work Phone: Comment on above: [facility] [address] [place], [address] ; [address] 2[address]29 Comprehensive metabolic 2000 panel 51 U/L Normal 50-136 Comprehensi ve Internal Medicine Work Phone: Comment on above: [facility] [address] [place], [address] ; [address] 2-29 Comprehensive metabolic 2000 panel 112 mg/dL Abnormal 70-110 Comprehensi ve Internal Medicine Work Phone: Comment on above: Fasting Glucose resu lt from 110 to <126 mg/dLsuggests IMPAIRED HOMEOSTASIS per A.D.A. criteria. [facility] [address] [place], [address] ; [address] Comprehensive metabolic 2000 panel 34 U/L Normal 12-78 Comprehensi ve Internal Medicine Work Phone: Comment on above: [facility] [address] [place], [address] ; apt[address] 2-29 Comprehensive metabolic 2000 panel 0.40 mg/dL Normal 0.20-1.00 Comprehensi ve Internal Medicine Work Phone: Comment on above: [facility] [address] [place], [address] ; [address] 2-29 Comprehensive metabolic 2000 panel 141 mmol/L Normal 136-145 Comprehensi ve Internal Medicine Work Phone: Comment on above: [facility] [address] [place], [address] ; [address]-29 Comprehensive metabolic 2000 panel 14 mg/dL Normal 7-18 Comprehensi ve Internal Medicine Work Phone: Comment on above: [facility] [address] [place], [address] ; [address] 2-29 Comprehensive metabolic 2000 panel 4.2 mmol/L Normal 3.5-5.1 Comprehensi ve Internal Medicine Work Phone: Comment on above: [facility] [address] [place], [address] ; [address] 2-29 Comprehensive metabolic 2000 panel 105 mmol/L Normal 98-107 Comprehensi ve Internal Medicine Work Phone: Comment on above: [facility] [address] [place], [place], [phone] ; [address]-29 Comprehensive metabolic 2000 panel 32.0 mmol/L Normal 21.0-32.0 Comprehensi ve Internal Medicine Work Phone: Comment on above: [facility] [address] [place], [address] ; [address] 2-29 Comprehensive metabolic 2000 panel 4 1 Abnormal 5-15 Comprehensi ve Internal Medicine Work Phone: Comment on above: [facility] [address] [place], [place], [phone] ; [address]. 2-29 Lipid ProfileOrdered By: Martinez tem Paid Search Specialist on 07-13-2015 Cholesterol in HDL mass conc 50 mg/dL Normal [facility] Work Phone: Comment on above: Reference Range HDL <40 mg/dL Low HDL Cholesterol HDL >or= 60 mg/dL High HDL Cholesterol [facility] [address] [place], [id number] Cholesterol in LDL mass conc 76 mg/dL Normal 0-130 [facility] Work Phone: Comment on above: [facility] [address] [place], [place], [id number] Cholesterol in VLDL mass conc 21 mg/dL Normal 5-40 [facility] Work Phone: Comment on above: [facility] [address] [place], [place], [id number] Cholesterol mass conc 147 mg/dL Normal Com prehensive Internal Medicine Work Phone: Comment on above: <200 mg/dL Desirable 200-240 mg/dL Borderline >240 mg/dL High Risk [facility] [address] [place], [place], [id number] Triglyceride mass conc 105 mg/dL Normal [facility] Work Phone: Comment on above: Serum Triglycerides Reference Interval Normal <150 mg/dL Borderline high 150 - 199 mg/dL High 200 - 499 mg/dL Very High > or = 500 mg/dL [facility] [address] [place], [address] Lipid Profile 21 mg/dL Normal 5-40 Comprehensi ve Internal Medicine Work Phone: Lipid Profile 76 mg/dL Normal 0-130 Comprehensi ve Internal Medicine Work Phone: Lipid Profile 50 mg/dL Normal Comprehensi ve Internal Medicine Work Phone: Comment on above: Reference Range HDL <40 mg/dL Low HDL Cholesterol HDL >or= 60 mg/dL High HDL Cholesterol Lipid Profile 105 mg/dL Normal Comprehensi ve Internal Medicine Work Phone: Comment on above: Serum Triglycerides Reference Interval Normal <150 mg/dL Borderline high 150 - 199 mg/dL High 200 - 499 mg/dL Very High > or = 500 mg/dL Lipid Profile 147 mg/dL Normal Comprehensi ve Internal Medicine Work Phone: Comment on above: <200 mg/dL Desirable 200-240 mg/dL Borderline >240 mg/dL High Risk Urinalysis, CompleteOrdered By: Quality Compliance Coordinator on 07-13-2015 Protein mass conc (U) Negative Normal Com prehensive Internal Medicine Work Phone: Comment on above: How was Urine Obtain ed? [facility] [address] [place], [address] RBC #/vol (U) 0 SEEN Normal 0-5 Comprehensi ve Internal Medicine Work Phone: Comment on above: How was Urine Obtain ed? [facility] [address], [address] RBC Test strip #/vol (U) 0 SEEN Normal 0-5 [facility] Work Phone: Urinalysis complete panel - Urine Yellow Normal [facility] Work Phone: Comment on above: How was Urine Obtain ed? [facility] [address], [address] Urinalysis complete panel - Urine 0 SEEN Normal [facility] Work Phone: Comment on above: How was Urine Obtain ed? [facility] [address], [address] Urinalysis complete panel - Urine 25 /ul Abnormal [facility] Work Phone: Comment on above: How was Urine Obtain ed? [facility] [address], [address] Urinalysis complete panel - Urine Negative Normal [facility] Work Phone: Comment on above: How was Urine Obtain ed? [facility] [address] [place], [address] Urinalysis complete panel - Urine Normal Normal [facility] Work Phone: Comment on above: How was Urine Obtain ed? [facility] [address] [place], [address] Urinalysis complete panel - Urine 6.5 1 Normal 5.0 - 8.0 [facility] Work Phone: Comment on above: How was Urine Obtain ed? [facility] [address], [address] Urinalysis complete panel - Urine 1.010 1 Normal 1.002-1.030 [facility] Work Phone: Comment on above: How was Urine Obtain ed? [facility] [address], [address] Urinalysis complete panel - Urine Clear Normal [facility] Work Phone: Comment on above: How was Urine Obtain ed? [facility] [address] [place], [place], [id number] Blood Glucose , Office ([phone])Ordered By: Jennifer Pina on 12-26-2014 Glucose Glucometer molar conc (BldC) 110 1 Normal [facility] Work Phone: HgA1C , Office ([phone])Ordere d By: Jennifer Pina on 12-26-2014 Hemoglobin A1c/Hemoglobin.total mass fraction (Bld) 6.2 % Normal 4.6 - 7.1 Comprehensiv e Internal Medicine Work Phone: CBC W/Diff, AutomatedOrdered By: Quality Compliance Coordinator on 12-22-2014 Absolute Neut 4.6 {X10_3/uL} Normal 2.0-7.7 Compreh ensive Internal Medicine Work Phone: Comment on above: Test performed at:[facility] [address] [place] [address] ; fu 12-26-14 will review then Basophils/100 WBC (Bld) 0.4 % Normal 0-1 [facility] Work Phone: Comment on above: Test performed at:[facility] [address] [place] [address] ; fu 12-26-14 will review then Eosinophils/100 WBC (Bld) 3.1 % Normal 0-5 [facility] Work Phone: Comment on above: Test performed at:[facility] [address] [place], [place] [id number] ; fu 12-26-14 will review then Erythrocyte distribution width Ratio (RBC) 13.2 % Normal 11.6-14.6 [facility] Work Phone: Comment on above: Test performed at:[facility] [address] [place] [address] ; fu 12-26-14 will review then Hematocrit Volume Fraction (Bld) 46.8 % Normal 40-54 [facility] Work Phone: Comment on above: Test performed at:[facility] [address] [place] [address] ; fu 12-26-14 will review then Hemoglobin mass conc (Bld) 15.6 g/dL Normal 13.0-16.5 [facility] Work Phone: Comment on above: Test performed at:[facility] [address] [place] [address] ; fu 12-26-14 will review then IM GRAN % 0.100 % Normal 0.0-0.9 [facility] Work Phone: Comment on above: IG% - Immature Granu locytes (promyelocytes, myelocytes andmetamyelocytes) > 1% indicates that a LEFT SHIFT is Present. Test performed at:[facility] [address] [address] ; fu 12-26-14 will review then Lymphocytes #/vol (Bld) 1.84 {X10_3/ul} Normal 0.83-4.51 [facility] Work Phone: Comment on above: Test performed at:[facility] [address] [place] [address] ; fu 12-26-14 will review then Lymphocytes/100 WBC (Bld) 26.0 % Normal 19-41 [facility] Work Phone: Comment on above: Test performed at:[facility] [address] [place], [place] [id number] ; fu 12-26-14 will review then MCH Entitic mass (RBC) 32.0 pg Normal 27.0-32.0 [facility] Work Phone: Comment on above: Test performed at:[facility] [address] [place] [address] ; fu 12-26-14 will review then MCHC mass conc (RBC) 33.3 {g/gl} Normal 32-36 [facility] prehensive Internal Medicine Work Phone: Comment on above: Test performed at:[facility] [address] [place] [address] ; fu 12-26-14 will review then MCV Entitic volume (RBC) 95.9 fL Abnormal 80-94 [facility] Work Phone: Comment on above: Test performed at:[facility] [address] [place] [address] ; fu 12-26-14 will review then Monocytes/100 WBC (Bld) 5.6 % Normal 0-10 [facility] Work Phone: Comment on above: Test performed at:[facility] [address] [place] [address] ; fu 12-26-14 will review then Neutrophils/100 WBC (Bld) 64.8 % Normal 47-70 [facility] Work Phone: Comment on above: Test performed at:[facility] [address] [place] [address] ; fu 12-26-14 will review then Platelet mean volume Entitic volume (Bld) 9.0 fL Normal 6.2-12.0 Comprehensi Internal Medicine Work Phone: Comment on above: Test performed at:[facility] [address] [place] [address] ; fu 12-26-14 will review then Platelets #/vol (Bld) 201 10*3/uL Normal 150-450 Co mprensive Internal Medicine Work Phone: Comment on above: Test performed at:[facility] [address] [place] [address] ; fu 12-26-14 will review then RBC #/vol (Bld) 4.88 {M/mm3} Normal 4.6-6.2 Compreh ensive Internal Medicine Work Phone: Comment on above: Test performed at:[facility] [address] [place] [address] ; fu 12-26-14 will review then RDW SD 46.4 fL Abnormal 35.1-43.9 [facility] Work Phone: Comment on above: Test performed at:[facility] [address] [place] [address] ; fu 12-26-14 will review then WBC #/vol (Bld) 7.1 10*3/uL Normal 4.4-11.0 [facility] Work Phone: Comment on above: Test performed at:[facility] [address] [place] [address] ; fu 12-26-14 will review then CBC W/Diff, Automated 46.4 fL Abnormal 35.1-43.9 [facility] prehensive Internal Medicine Work Phone: CBC W/Diff, Automated 1.84 {X10_3/ul} Normal 0.83-4.51 [facility] Work Phone: CBC W/Diff, Automated 4.6 {X10_3/uL} Normal 2.0-7.7 [facility] Work Phone: CBC W/Diff, Automated 0.100 % Normal 0.0-0.9 [facility] prehensive Internal Medicine Work Phone: Comment on above: IG% - Immature Granu locytes (promyelocytes, myelocytes andmetamyelocytes) > 1% indicates that a LEFT SHIFT is Present. CBC W/Diff, Automated 0.4 % Normal 0-1 [facility] prehensive Internal Medicine Work Phone: CBC W/Diff, Automated 7.1 K/mm3 Normal 4.4-11.0 [facility] prehensive Internal Medicine Work Phone: CBC W/Diff, Automated 4.88 {M/mm3} Normal 4.6-6.2 C omprehensive Internal Medicine Work Phone: CBC W/Diff, Automated 15.6 g/dL Normal 13.0-16.5 [facility] prehensive Internal Medicine Work Phone: CBC W/Diff, Automated 46.8 % Normal 40-54 Com prehensive Internal Medicine Work Phone: CBC W/Diff, Automated 95.9 fL Abnormal 80-94 Com prehensive Internal Medicine Work Phone: CBC W/Diff, Automated 32.0 pg Normal 27.0-32.0 Com prehensive Internal Medicine Work Phone: CBC W/Diff, Automated 33.3 {g/gl} Normal 32-36 [facility] Work [facility]: CBC W/Diff, Automated 13.2 % Normal 11.6-14.6 Com prehensive Internal Medicine Work Phone: CBC W/Diff, Automated 3.1 % Normal 0-5 Com prehensive Internal Medicine Work Phone: CBC W/Diff, Automated 201 K/mm3 Normal 150-450 Com prehensive Internal Medicine Work Phone: CBC W/Diff, Automated 9.0 fL Normal 6.2-12.0 [facility] prehensive Internal Medicine Work Phone: CBC W/Diff, Automated 64.8 % Normal 47-70 [facility] prehensive Internal Medicine Work Phone: CBC W/Diff, Automated 26.0 % Normal 19-41 [facility] prehensive Internal Medicine Work Phone: CBC W/Diff, Automated 5.6 % Normal 0-10 Com prehensive Internal Medicine Work Phone: Comprehensive Metabolic Prof ilOrdered By: Quality Compliance Coordinator on 12-22-2014 Comprehensive metabolic 2000 panel 159 mL/min Normal Comprehensi ve Internal Medicine Work Phone: Comment on above: Test performed at:[facility] [address] [facility] [place] [address] Comprehensive metabolic 2000 panel 3.7 g/dL Normal 3.4-5.0 Comprehensi ve Internal Medicine Work Phone: Comment on above: Test performed at:[facility] [address] [place] [address] Comprehensive metabolic 2000 panel 2.8 g/dL Normal 2.3-3.5 Comprehensi ve Internal Medicine Work Phone: Comment on above: Test performed at:[facility] [address] [place], [place] [id number] Comprehensive metabolic 2000 panel 1.3 {RATIO} Normal 0.9-2.4 Comprehensi ve Internal Medicine Work Phone: Comment on above: Test performed at:[facility] [address] [place] [address] Comprehensive metabolic 2000 panel 5 1 Normal 5-15 Comprehensi ve Internal Medicine Work Phone: Comment on above: Test performed at:[facility] [address] [address] Comprehensive metabolic 2000 panel 30.0 mmol/L Normal 21.0-32.0 Comprehensi ve Internal Medicine Work Phone: Comment on above: Test performed at:[facility] [address] [place] [address] Comprehensive metabolic 2000 panel 105 mmol/L Normal 98-107 Comprehensi ve Internal Medicine Work Phone: Comment on above: Test performed at:[facility] [address] [address] Comprehensive metabolic 2000 panel 4.0 mmol/L Normal 3.5-5.1 Comprehensi ve Internal Medicine Work Phone: Comment on above: Test performed at:[facility] [address] [place] [address] Comprehensive metabolic 2000 panel 34 U/L Normal 15-37 Comprehensi ve Internal Medicine Work Phone: Comment on above: Test performed at:[facility] [address] [place] [address] Comprehensive metabolic 2000 panel 21.5 {RATIO} Abnormal 10-20 Comprehensi ve Internal Medicine Work Phone: Comment on above: Test performed at:[facility] [address] [place], [place] [id number] Comprehensive metabolic 2000 panel 6.5 g/dL Normal 6.4-8.2 Comprehensi ve Internal Medicine Work Phone: Comment on above: Test performed at:[facility] [address] [place], [place] [id number] Comprehensive metabolic 2000 panel 140 mmol/L Normal 136-145 Comprehensi ve Internal Medicine Work Phone: Comment on above: Test performed at:[facility] [address] [place], [place] [id number] Comprehensive metabolic 2000 panel 131 mL/min Normal Comprehensi ve Internal Medicine Work Phone: Comment on above: Test performed at:[facility] [address] [place], [place] [id number] Comprehensive metabolic 2000 panel 8.6 mg/dL Normal 8.5-10.1 Comprehensi ve Internal Medicine Work Phone: Comment on above: Test performed at:[facility] [address] [place] [address] Comprehensive metabolic 2000 panel 92 mg/dL Normal 70-110 Comprehensi ve Internal Medicine Work Phone: Comment on above: Test performed at:[facility] [address] [place], [place] [id number] Comprehensive metabolic 2000 panel 0.40 mg/dL Normal 0.20-1.00 Comprehensi ve Internal Medicine Work Phone: Comment on above: Test performed at:[facility] [address] [place] [address] Comprehensive metabolic 2000 panel 14 mg/dL Normal 7-18 Comprehensi ve Internal Medicine Work Phone: Comment on above: Test performed at:[facility] [address] [place], [place] [id number] Comprehensive metabolic 2000 panel 41 U/L Normal 12-78 Comprehensi ve Internal Medicine Work Phone: Comment on above: Test performed at:[facility] [address] [place], [place] [id number] Comprehensive metabolic 2000 panel 44 U/L Abnormal 50-136 Comprehensi ve Internal Medicine Work Phone: Comment on above: Test performed at:[facility] [address] [place] [address] Comprehensive metabolic 2000 panel 0.65 mg/dL Abnormal 0.70-1.30 Comprehensi ve Internal Medicine Work Phone: Comment on above: Please note revised CREATININE reference range [id number]/22/2015. Test performed at:[facility] [address] [place] [address] Lipid ProfileOrdered By: Martinez tem Paid Search Specialist on 12-22-2014 Cholesterol in HDL mass conc 45 mg/dL Normal [facility] Work Phone: Comment on above: Reference Range HDL <40 mg/dL Low HDL Cholesterol HDL >or= 60 mg/dL High HDL Cholesterol Test performed at:[facility] [address] [place] [address] Cholesterol in LDL mass conc 61 mg/dL Normal 0-130 [facility] Work Phone: Comment on above: Test performed at:[facility] [address] [address] Cholesterol in VLDL mass conc 19 mg/dL Normal 5-40 [facility] Work Phone: Comment on above: Test performed at:[facility] [address] [place] [address] Cholesterol mass conc 125 mg/dL Normal Com prehensive Internal Medicine Work Phone: Comment on above: <200 mg/dL Desirable 200-240 mg/dL Borderline >240 mg/dL High Risk Test performed at:[facility] [address] [place] [address] Triglyceride mass conc 93 mg/dL Normal [facility] Work Phone: Comment on above: Serum Triglycerides Reference Interval Normal <150 mg/dL Borderline high 150 - 199 mg/dL High 200 - 499 mg/dL Very High > or = 500 mg/dL Test performed at:[facility] [address] [address] Lipid Profile 125 mg/dL Normal Comprehensi ve Internal Medicine Work Phone: Comment on above: <200 mg/dL Desirable 200-240 mg/dL Borderline >240 mg/dL High Risk Lipid Profile 93 mg/dL Normal Comprehensi ve Internal Medicine Work Phone: Comment on above: Serum Triglycerides Reference Interval Normal <150 mg/dL Borderline high 150 - 199 mg/dL High 200 - 499 mg/dL Very High > or = 500 mg/dL Lipid Profile 45 mg/dL Normal Comprehensi ve Internal Medicine Work Phone: Comment on above: Reference Range HDL <40 mg/dL Low HDL Cholesterol HDL >or= 60 mg/dL High HDL Cholesterol Lipid Profile 61 mg/dL Normal 0-130 Comprehensi ve Internal Medicine Work Phone: Lipid Profile 19 mg/dL Normal 5-40 Comprehensi ve Internal Medicine Work Phone: MicroalbOrdered By: Tammy granados on 12-22-2014 Microalb 134.00 mg/dL Normal Comprehensiv e Internal Medicine Work Phone: Comment on above: Test performed at:[facility] [address] [address] Microalb 11.4 mg/L Normal [facility] Work Phone: Comment on above: Test performed at:[facility] [address] [address] Microalb 8.0 {mg/g_CRE} Normal Comprehens kaitlin Internal Medicine Work Phone: Comment on above: Test performed at:[facility] [address] [place] [address] Urinalysis, CompleteOrdered By: Quality Compliance Coordinator on 12-22-2014 Protein mass conc (U) Negative Normal Com prehensive Internal Medicine Work Phone: Comment on above: How was Urine Obtain ed? Urine, RandomTest performed at:[facility] [address] [place] [address] RBC #/vol (U) 0-5 SEEN Normal 0-5 Comprehensi ve Internal Medicine Work Phone: Comment on above: How was Urine Obtain ed? Urine, RandomTest performed at:[facility] [address] [place] [address] RBC Test strip #/vol (U) 0-5 SEEN Normal 0-5 [facility] Work Phone: Urinalysis complete panel - Urine RARE Normal [facility] Work Phone: Comment on above: How was Urine Obtain ed? Urine, RandomTest performed at:[facility] [address] [place] [address] Urinalysis complete panel - Urine Normal Normal [facility] Work Phone: Comment on above: How was Urine Obtain ed? Urine, RandomTest performed at:[facility] [address] [place] [address] Urinalysis complete panel - Urine Negative Normal [facility] Work Phone: Comment on above: How was Urine Obtain ed? Urine, RandomTest performed at:[facility] [address] [place] [address] Urinalysis complete panel - Urine 1.010 1 Normal 1.002-1.030 [facility] Work Phone: Comment on above: How was Urine Obtain ed? Urine, RandomTest performed at:[facility] [address] [place] [address] Urinalysis complete panel - Urine 7.0 1 Normal 5.0 - 8.0 [facility] Work Phone: Comment on above: How was Urine Obtain ed? Urine, RandomTest performed at:[facility] [address] [place] [address] Urinalysis complete panel - Urine 10 /ul Abnormal [facility] Work Phone: Comment on above: How was Urine Obtain ed? Urine, RandomTest performed at:[facility] [address] [place] [address] Urinalysis complete panel - Urine Clear Normal [facility] Work Phone: Comment on above: How was Urine Obtain ed? Urine, RandomTest performed at:[facility] [address] [place] [address] Urinalysis complete panel - Urine 0 SEEN Normal 0-5 [facility] Work Phone: Comment on above: How was Urine Obtain ed? Urine, RandomTest performed at:[facility] [address] [place] [address] Urinalysis complete panel - Urine Yellow Normal [facility] Work Phone: Comment on above: How was Urine Obtain ed? Urine, RandomTest performed at:[facility] [address] [place] [address] Blood Glucose , Office ([phone])Ordered By: Silke Chavez on 08-29-2014 Glucose Glucometer molar conc (BldC) 144 1 Normal [facility] Work Phone: HgA1C , Office ([phone])Ordere d By: Silke Chavez on 08-29-2014 Hemoglobin A1c/Hemoglobin.total mass fraction (Bld) 6.5 % Normal 4.6 - 7.1 Comprehensiv e Internal Medicine Work Phone: CBC W/Diff, AutomatedOrdered By: Quality Compliance Coordinator on 08-28-2014 Absolute Neut 7.7 {X10_3/uL} Normal 2.0-7.7 Compreh ensive Internal Medicine Work Phone: Comment on above: Test performed at:[facility] [address] [place] [address] Basophils/100 WBC (Bld) 0.2 % Normal 0-1 [facility] Work Phone: Comment on above: Test performed at:[facility] [address] [place] [address] Eosinophils/100 WBC (Bld) 1.1 % Normal 0-5 [facility] Work Phone: Comment on above: Test performed at:[facility] [address] [place] [address] Erythrocyte distribution width Ratio (RBC) 13.3 % Normal 11.6-14.6 [facility] Work Phone: Comment on above: Test performed at:[facility] [address] [place] [address] Hematocrit Volume Fraction (Bld) 48.9 % Normal 40-54 [facility] Work Phone: Comment on above: Test performed at:[facility] [address] [place] [address] Hemoglobin mass conc (Bld) 16.3 g/dL Normal 13.0-16.5 [facility] Work Phone: Comment on above: Test performed at:[facility] [address] [place] [address] IM GRAN % 0.200 % Normal 0.0-0.9 [facility] Work Phone: Comment on above: IG% - Immature Granu locytes (promyelocytes, myelocytes andmetamyelocytes) > 1% indicates that a LEFT SHIFT is Present. Test performed at:[facility] [address] [place] [address] Lymphocytes #/vol (Bld) 1.24 {X10_3/ul} Normal 0.83-4.51 [facility] Work Phone: Comment on above: Test performed at:[facility] [address] [place] [address] Lymphocytes/100 WBC (Bld) 12.9 % Abnormal 19-41 [facility] Work Phone: Comment on above: Test performed at:[facility] [address] [place] [address] MCH Entitic mass (RBC) 32.1 pg Abnormal 27.0-32.0 [facility] Work Phone: Comment on above: Test performed at:[facility] [address] [place] [address] MCHC mass conc (RBC) 33.3 {g/gl} Normal 32-36 [facility] prehensive Internal Medicine Work Phone: Comment on above: Test performed at:[facility] [address] [place] [address] MCV Entitic volume (RBC) 96.4 fL Abnormal 80-94 Comprehensive Internal Medicine Work Phone: Comment on above: Test performed at:[facility] [address] [place] [address] Monocytes/100 WBC (Bld) 5.3 % Normal 0-10 [facility] Medicine Work Phone: Comment on above: Test performed at:[facility] [address] [place] [address] Neutrophils/100 WBC (Bld) 80.3 % Abnormal 47-70 [facility] Medicine Work Phone: Comment on above: Test performed at:[facility] [address] [place] [address] Platelet mean volume Entitic volume (Bld) 9.1 fL Normal 6.2-12.0 Comprehensi Internal Medicine Work Phone: Comment on above: Test performed at:[facility] [address] [place] [address] Platelets #/vol (Bld) 210 10*3/uL Normal 150-450 Co mprehensive Internal Medicine Work Phone: Comment on above: Test performed at:[facility] [address] [place] [address] RBC #/vol (Bld) 5.07 {M/mm3} Normal 4.6-6.2 Compreh ensive Internal Medicine Work Phone: Comment on above: Test performed at:[facility] [address] [place] [address] RDW SD 47.1 fL Abnormal 35.1-43.9 [facility] Medicine Work Phone: Comment on above: Test performed at:[facility] [address] [place] [address] WBC #/vol (Bld) 9.6 10*3/uL Normal 4.4-11.0 Comprehe nsive Internal Medicine Work Phone: Comment on above: Test performed at:[facility] [address] [place] [address] CBC W/Diff, Automated 210 K/mm3 Normal 150-450 Com prehensive Internal Medicine Work Phone: CBC W/Diff, Automated 33.3 {g/gl} Normal 32-36 Co mprehensive Internal Medicine Work Phone: CBC W/Diff, Automated 32.1 pg Abnormal 27.0-32.0 Com prehensive Internal Medicine Work Phone: CBC W/Diff, Automated 96.4 fL Abnormal 80-94 Com prehensive Internal Medicine Work Phone: CBC W/Diff, Automated 48.9 % Normal 40-54 Com prehensive Internal Medicine Work Phone: CBC W/Diff, Automated 16.3 g/dL Normal 13.0-16.5 Com prehensive Internal Medicine Work Phone: CBC W/Diff, Automated 5.07 {M/mm3} Normal 4.6-6.2 C omprehensive Internal Medicine Work Phone: CBC W/Diff, Automated 13.3 % Normal 11.6-14.6 Com prehensive Internal Medicine Work Phone: CBC W/Diff, Automated 1.24 {X10_3/ul} Normal 0.83-4.51 [facility] Internal Medicine Work Phone: CBC W/Diff, Automated 7.7 {X10_3/uL} Normal 2.0-7.7 [facility] Internal Medicine Work Phone: CBC W/Diff, Automated 0.200 % Normal 0.0-0.9 [facility] prehensive Internal Medicine Work Phone: Comment on above: IG% - Immature Granu locytes (promyelocytes, myelocytes andmetamyelocytes) > 1% indicates that a LEFT SHIFT is Present. CBC W/Diff, Automated 0.2 % Normal 0-1 Com prehensive Internal Medicine Work Phone: CBC W/Diff, Automated 1.1 % Normal 0-5 Com prehensive Internal Medicine Work Phone: CBC W/Diff, Automated 5.3 % Normal 0-10 [facility] prehensive Internal Medicine Work Phone: CBC W/Diff, Automated 12.9 % Abnormal 19-41 [facility] prehensive Internal Medicine Work Phone: CBC W/Diff, Automated 80.3 % Abnormal 47-70 [facility] prehensive Internal Medicine Work Phone: CBC W/Diff, Automated 9.1 fL Normal 6.2-12.0 [facility] prehensive Internal Medicine Work Phone: CBC W/Diff, Automated 9.6 K/mm3 Normal 4.4-11.0 [facility] prehensive Internal Medicine Work Phone: CBC W/Diff, Automated 47.1 fL Abnormal 35.1-43.9 [facility] prehensive Internal Medicine Work Phone: Comprehensive Metabolic Prof ilOrdered By: Quality Compliance Coordinator on 08-28-2014 Comprehensive metabolic 2000 panel 32.0 mmol/L Normal 21.0-32.0 Comprehensi ve Internal Medicine Work Phone: Comment on above: Test performed at:[facility] [address] [place] [address] Comprehensive metabolic 2000 panel 1 1 Abnormal 5-15 Comprehensi ve Internal Medicine Work Phone: Comment on above: Test performed at:[facility] [address] [place] [address] Comprehensive metabolic 2000 panel 109 mL/min Normal Comprehensi ve Internal Medicine Work Phone: Comment on above: Test performed at:[facility] [address] [place] [address] Comprehensive metabolic 2000 panel 47 U/L Abnormal 50-136 Comprehensi ve Internal Medicine Work Phone: Comment on above: Test performed at:[facility] [address] [place] [address] Comprehensive metabolic 2000 panel 90 mL/min Normal Comprehensi ve Internal Medicine Work Phone: Comment on above: Test performed at:[facility] [address] [place] [address] Comprehensive metabolic 2000 panel 0.9 mg/dL Normal 0.8-1.3 Comprehensi ve Internal Medicine Work Phone: Comment on above: Test performed at:[facility] [address] [place] [address] Comprehensive metabolic 2000 panel 15 mg/dL Normal 7-18 Comprehensi ve Internal Medicine Work Phone: Comment on above: Test performed at:[facility] [address] [place] [address] Comprehensive metabolic 2000 panel 113 mg/dL Abnormal 70-110 Comprehensi ve Internal Medicine Work Phone: Comment on above: Fasting Glucose resu lt from 110 to <126 mg/dLsuggests IMPAIRED HOMEOSTASIS per A.D.A. criteria. Test performed at:[facility] [address] [place], [place] [address] Comprehensive metabolic 2000 panel 139 mmol/L Normal 136-145 Comprehensi ve Internal Medicine Work Phone: Comment on above: Test performed at:[facility] [address] [place], [place] [id number] Comprehensive metabolic 2000 panel 1.4 {RATIO} Normal 0.9-2.4 Comprehensi ve Internal Medicine Work Phone: Comment on above: Test performed at:[facility] [address] [place], [place] [id number] Comprehensive metabolic 2000 panel 2.7 g/dL Normal 2.7-4.2 Comprehensi ve Internal Medicine Work Phone: Comment on above: Test performed at:[facility] [address] [place], [place] [id number] Comprehensive metabolic 2000 panel 8.6 mg/dL Normal 8.5-10.1 Comprehensi ve Internal Medicine Work Phone: Comment on above: Test performed at:[facility] [address] [place], [place] [id number] Comprehensive metabolic 2000 panel 33 U/L Normal 12-78 Comprehensi ve Internal Medicine Work Phone: Comment on above: Test performed at:[facility] [address] [place] [address] Comprehensive metabolic 2000 panel 23 U/L Normal 15-37 Comprehensi ve Internal Medicine Work Phone: Comment on above: Test performed at:[facility] [address] [place] [address] Comprehensive metabolic 2000 panel 0.50 mg/dL Normal 0.00-4.00 Comprehensi ve Internal Medicine Work Phone: Comment on above: Test performed at:[facility] [address] [place] [address] Comprehensive metabolic 2000 panel 3.7 g/dL Normal 3.4-5.0 Comprehensi ve Internal Medicine Work Phone: Comment on above: Test performed at:[facility] [address] [place] [address] Comprehensive metabolic 2000 panel 4.0 mmol/L Normal 3.5-5.1 Comprehensi ve Internal Medicine Work Phone: Comment on above: Test performed at:[facility] [address] [place] [address] Comprehensive metabolic 2000 panel 6.4 g/dL Normal 6.4-8.2 Comprehensi ve Internal Medicine Work Phone: Comment on above: Test performed at:[facility] [address] [place] [address] Comprehensive metabolic 2000 panel 106 mmol/L Normal 98-107 Comprehensi ve Internal Medicine Work Phone: Comment on above: Test performed at:[facility] [address] [place] [address] Comprehensive metabolic 2000 panel 16.7 {RATIO} Normal 10-20 Comprehensi ve Internal Medicine Work Phone: Comment on above: Test performed at:[facility] [address] [place] [address] Lipid ProfileOrdered By: Martinez tem Paid Search Specialist on 08-28-2014 Cholesterol in HDL mass conc 45 mg/dL Normal Comprehensive Internal Medicine Work Phone: Comment on above: Reference Range HDL <40 mg/dL Low HDL Cholesterol HDL >or= 60 mg/dL High HDL Cholesterol Test performed at:[facility] [address] [place] [address] Cholesterol in LDL mass conc 70 mg/dL Normal 0-130 [facility] Medicine Work Phone: Comment on above: Test performed at:[facility] [address] [place] [address] Cholesterol in VLDL mass conc 17 mg/dL Normal 5-40 [facility] Internal Medicine Work Phone: Comment on above: Test performed at:[facility] [address] [place] [address] Cholesterol mass conc 132 mg/dL Normal Com prehensive Internal Medicine Work Phone: Comment on above: <200 mg/dL Desirable 200-240 mg/dL Borderline >240 mg/dL High Risk Test performed at:[facility] [address] [place] [address] Triglyceride mass conc 85 mg/dL Normal 0-199 [facility] Medicine Work Phone: Comment on above: Serum Triglycerides Reference Interval Normal <150 mg/dL Borderline high 150 - 199 mg/dL High 200 - 499 mg/dL Very High > or = 500 mg/dL Test performed at:[facility] [address] [place], [place] [id number] Lipid Profile 132 mg/dL Normal Comprehensi ve Internal Medicine Work Phone: Comment on above: <200 mg/dL Desirable 200-240 mg/dL Borderline >240 mg/dL High Risk Lipid Profile 85 mg/dL Normal 0-199 Comprehensi ve Internal Medicine Work Phone: Comment on above: Serum Triglycerides Reference Interval Normal <150 mg/dL Borderline high 150 - 199 mg/dL High 200 - 499 mg/dL Very High > or = 500 mg/dL Lipid Profile 45 mg/dL Normal Comprehensi ve Internal Medicine Work Phone: Comment on above: Reference Range HDL <40 mg/dL Low HDL Cholesterol HDL >or= 60 mg/dL High HDL Cholesterol Lipid Profile 70 mg/dL Normal 0-130 Comprehensi ve Internal Medicine Work Phone: Lipid Profile 17 mg/dL Normal 5-40 Comprehensi ve Internal Medicine Work Phone: MicroalbOrdered By: Tammy granados on 08-28-2014 Microalb 208.2 mg/dL Normal [facility] Medicine Work Phone: Comment on above: Test performed at:[facility] [address] [place] [address] Microalb 214.0 mg/L Normal [facility] Medicine Work Phone: Comment on above: Test performed at:[facility] [address] [place] [address] Microalb 102.7 {mg/g_CRE} Abnormal Comprehe nsive Internal Medicine Work Phone: Comment on above: Test performed at:[facility] [address] [place] [address] PSA,Total - Annual ScreenOrd ered By: Quality Compliance Coordinator on 08-28-2014 Prostate specific Ag mass conc 0.65 ng/mL Normal 0.00-4.00 [facility] Medicine Work Phone: Comment on above: This test was perfor med using the TPSA assay method for [employer] chemistry system. Values obtained with differentassay methods cannot be used interchangably.When changing PSA assays in the course of monitoring apatient, additional sequential testing should be carriedout to confirm baseline values. Test performed at:[facility] [address] [place] [address] Urinalysis, Routine (Dipstic k)Ordered By: Quality Compliance Coordinator on 08-28-2014 Urinalysis, Routine (Dipstick) 1.010 1 Normal 1.002-1.030 [facility] Medicine Work Phone: Comment on above: How was Urine Obtain ed? Urine, RandomTest performed at:[facility] [address] [place] [address] Urinalysis, Routine (Dipstick) 25 /ul Abnormal Comprehensive Internal Medicine Work Phone: Comment on above: How was Urine Obtain ed? Urine, RandomTest performed at:[facility] [address] [place] [address] Urinalysis, Routine (Dipstick) 10 /ul Abnormal [facility] Medicine Work Phone: Comment on above: How was Urine Obtain ed? Urine, RandomTest performed at:[facility] [address] [address] Urinalysis, Routine (Dipstick) Negative Normal [facility] Medicine Work Phone: Comment on above: How was Urine Obtain ed? Urine, RandomTest performed at:[facility] [address] [address] Urinalysis, Routine (Dipstick) 1 mg/dL Abnormal [facility] Medicine Work Phone: Comment on above: How was Urine Obtain ed? Urine, RandomTest performed at:[facility] [address] [place] [address] Urinalysis, Routine (Dipstick) 30 mg/dL Abnormal [facility] Medicine Work Phone: Comment on above: How was Urine Obtain ed? Urine, RandomTest performed at:[facility] [address] [place] [address] Urinalysis, Routine (Dipstick) 7.0 1 Normal 5.0 - 8.0 [facility] Medicine Work Phone: Comment on above: How was Urine Obtain ed? Urine, RandomTest performed at:[facility] [address] [place] [address] Urinalysis, Routine (Dipstick) Normal Normal [facility] Work Phone: Comment on above: How was Urine Obtain ed? Urine, RandomTest performed at:[facility] [address] [place] [address] Urinalysis, Routine (Dipstick) Sl. Cloudy Normal Comprehensive [facility] Medicine Work Phone: Comment on above: How was Urine Obtain ed? Urine, RandomTest performed at:[facility] [address] [place] [address] Urinalysis, Routine (Dipstick) Yellow Normal [facility] Medicine Work Phone: Comment on above: How was Urine Obtain ed? Urine, RandomTest performed at:[facility] [address] [place] [address] Platelet CountOrdered By: Sy stem Paid Search Specialist on 06-02-2014 Platelets #/vol (Bld) 186 10*3/uL Normal 150-450 Co mprehensive Internal Medicine Work Phone: Comment on above: TESTING PERFORMED ON SODIUM CITRATE TUBE (BLUE) DO NOT SPIN RUN ON B LUE!!!DO NOT SPIN RUN ON BLUE!!!Test performed at:[facility] [address] [place], [place] [address] Platelet Count 186 K/mm3 Normal 150-450 Comprehens kaitlin Internal Medicine Work Phone: Comment on above: TESTING PERFORMED ON SODIUM CITRATE TUBE (BLUE) Rapid Flu (03392 x 2)Ordered By: Alexa Rivera on 05-15-2014 FLUAV Ag IA Ql (Throat) Negative Normal [facility] Work Phone: FLUAV Ag IA Ql (Throat) Negative Normal [facility]; [facility] Medicine Work Phone: Blood Glucose , Office ([phone])Ordered By: Jennifer Pina on 04-27-2014 Glucose Glucometer molar conc (dC) 106 1 Normal Comprehensive Internal Medicine Work Phone: HIV-1 ANTIBODY ([phone])Ordere d By: Quality Compliance Coordinator on 04-27-2014 HIV 1+O+2 Ab Ql Non Reactive Normal Compreh ensive Internal Medicine Work Phone: Comment on above: PATIENT NOT FASTINGP ERFORMED BY: [place] [address]iq[address]79 [facility] [id number] HIV 1+O+2 Ab Ql Non-Reactive Normal Compreh ensive Internal Medicine; Comprehensive Internal Medicine Work Phone: Comment on above: PATIENT NOT FASTINGP ERFORMED BY: JB TherapeuticsCoCoupFlip70 [facility] [id number] HIV 1+O+2 Ab Qn <1.00 Normal Comprehen sive Internal Medicine Work Phone: Comment on above: Index Value: Specime n reactivity relative to the negative cutoff. PATIENT NOT FASTINGP ERFORMED BY: CB [facility] [address] [place] [id number] HgA1C , Office ([id number])Ordere d By: Jennifer Pina on 04-27-2014 Hemoglobin A1c/Hemoglobin.total mass fraction (Bld) 6.7 % Normal 4.6 - 7.1 Comprehensiv e Internal Medicine Work Phone: Metabolic Panel, Comprehensi ve ([phone])Ordered By: Quality Compliance Coordinator on 04-27-2014 Albumin mass conc 3.9 g/dL Normal 3.6-4.8 Compreh ensive Internal Medicine Work Phone: Comment on above: PATIENT NOT FASTINGP ERFORMED BY: CB [facility] [address]oc[address] [place] [id number] Information: [id number] Albumin/Globulin mass ratio 1.9 {ratio} Normal 1.1-2.5 [facility] Work Phone: Comment on above: PATIENT NOT FASTINGP ERFORMED BY: CB [facility] [address]kr[address] [place] [id number] Information: [id number] ALP [Catalytic activity/Vol] 37 U/L Abnormal 39-117 [facility]; [facility] Medicine Work Phone: Comment on above: PATIENT NOT FASTINGP ERFORMED BY: CB [facility] [address] [place] [id number] Information: [id number] ALP enzyme act/vol 37 [iU]/L Abnormal 39-117 Compre hensive Internal Medicine Work Phone: Comment on above: PATIENT NOT FASTINGP ERFORMED BY: CB [facility] [address] [place] [id number] Information: [id number] ALT [Catalytic activity/Vol] 22 U/L Normal 0-44 [facility]; [facility] Work Phone: Comment on above: PATIENT NOT FASTINGP ERFORMED BY: CB [facility] F[address]lsg[address] [place] [id number] Information: [id number] ALT enzyme act/vol 22 [iU]/L Normal 0-44 [facility] Internal Medicine Work Phone: Comment on above: PATIENT NOT FASTINGP ERFORMED BY: DOUGIE LabComary OglesbyMmeysd[address] [place] [id number] Information: [id number] AST [Catalytic activity/Vol] 26 U/L Normal 0-40 [facility]; [facility] Work Phone: Comment on above: PATIENT NOT FASTINGP ERFORMED BY: LabCoEast Orange General HospitalZjahlu0637 [address] [facility] [id number] Information: [id number] AST enzyme act/vol 26 [iU]/L Normal 0-40 [facility] Internal Medicine Work Phone: Comment on above: PATIENT NOT FASTINGP ERFORMED BY: LabChristopher [place] [id number] [facility] [id number] Information: [id number] Bilirubin mass conc 0.4 mg/dL Normal 0.0-1.2 Compr [facility] Internal Medicine Work Phone: Comment on above: PATIENT NOT FASTINGP ERFORMED BY: [facility] Jnjhui5768 [facility] [id number] Information: [id number] Calcium mass conc 9.0 mg/dL Normal 8.6-10.2 Compreh ensive Internal Medicine Work Phone: Comment on above: PATIENT NOT FASTINGP ERFORMED BY: [facility] [address]lbso[address] [facility] [place] [id number] Information: [id number] Chloride molar conc 102 mmol/L Normal 97-108 Compr [facility] Internal Medicine Work Phone: Comment on above: PATIENT NOT FASTINGP ERFORMED BY: [facility] [address] [facility] [place] [id number] Information: [id number] CO2 molar conc 27 mmol/L Normal 18-29 Comprehens kaitlin Internal Medicine Work Phone: Comment on above: PATIENT NOT FASTINGP ERFORMED BY: DOUGIE VerasComary OglesbyXvqggh7937 [facility] [id number] Information: [id number] Creatinine mass conc 0.70 mg/dL Abnormal 0.76-1.27 Comp rehensive Internal Medicine Work Phone: Comment on above: PATIENT NOT FASTINGP ERFORMED BY: DOUGIE VerasCo Jvurer4021 [facility] [id number] Information: [id number] GFR/1.73 sq M predicted among blacks CKD-EPI vol rate/area (S/P/Bld) 115 mL/min/1.73 Normal Comprehensiv e Internal Medicine Work Phone: Comment on above: PATIENT NOT FASTINGP ERFORMED BY: DOUGIE [facility]daUniversity [facility] Oeyigy3054 [facility] [id number] Information: [id number] GFR/1.73 sq M predicted among non-blacks CKD-EPI vol rate/area (S/P/Bld) 100 mL/min/1.73 Normal Comprehensive Internal Medicine Work Phone: Comment on above: PATIENT NOT FASTINGP ERFORMED BY: DOUGIE Lin Zyrtsz6765 [facility] [id number] Information: [id number] Globulin Calculated mass conc (S) 2.1 g/dL Normal 1.5-4.5 [facility] Work Phone: Globulin mass conc (S) 2.1 g/dL Normal 1.5-4.5 [facility] Work Phone: Comment on above: PATIENT NOT FASTINGP ERFORMED BY: DOUGIE LabCo Eqmfry7673 [facility] [id number] Information: [id number] Glucose mass conc 93 mg/dL Normal 65-99 Compreh ensive Internal Medicine Work Phone: Comment on above: PATIENT NOT FASTINGP ERFORMED BY: [facility]6370 [facility] [id number] Information: [id number] Potassium molar conc 4.7 mmol/L Normal 3.5-5.2 Comp rehensive Internal Medicine Work Phone: Comment on above: PATIENT NOT FASTINGP ERFORMED BY: [facility]6370 [facility] [id number] Information: [id number] Protein mass conc 6.0 g/dL Normal 6.0-8.5 Compreh ensive Internal Medicine Work Phone: Comment on above: PATIENT NOT FASTINGP ERFORMED BY: LabChrist[place] 0675770 [facility] [id number] Information: [id number] Sodium molar conc 143 mmol/L Normal 134-144 Compreh ensive Internal Medicine Work Phone: Comment on above: PATIENT NOT FASTINGP ERFORMED BY: [facility]6370 [facility] [id number] Information: [id number] Urea nitrogen mass conc 19 mg/dL Normal 8-27 [facility] Work Phone: Comment on above: PATIENT NOT FASTINGP ERFORMED BY: [facility] HospitalCoCharles Ville 7759770 [facility] [id number] Information: [id number] Urea nitrogen/Creatinine mass ratio 27 mg/mg Abnormal 10-22 [facility] Work Phone: Comment on above: PATIENT NOT FASTINGP ERFORMED BY: [place] 9202570 [facility] [id number] Information: [id number] Platelet Count, Citrated (85 049)Ordered By: Quality Compliance Coordinator on 04-27-2014 Platelets #/vol (Bld) 114 {X10E3/uL} Abnormal 150-379 [facility] Work Phone: Comment on above: Actual platelet coun t may be somewhat higher than reported due toaggregation of platelets in this sample. PATIENT NOT FASTINGP ERFORMED BY: [facility]6370 [facility] [id number] Information: [id number] ORDER NO DRAW F EE Platelets (Bld) [#/Vol] 114 10*3/uL Abnormal 150-379 [facility]; [facility] Work Phone: Comment on above: Actual platelet coun t may be somewhat higher than reported due toaggregation of platelets in this sample. PATIENT NOT FASTINGP ERFORMED BY: [facility]6370 [facility] [id number] Information: [id number],2ND ORDER NO DRAW F EE Platelets Auto #/vol (Bld) 114 {X10E3/uL} Abnormal 150-379 [facility] Work Phone: Comment on above: Actual platelet coun t may be somewhat higher than reported due toaggregation of platelets in this sample. T4, FREE (THYROXINE) (89555) Ordered By: Quality Compliance Coordinator on 04-27-2014 T4 free mass conc 1.24 ng/dL Normal 0.82-1.77 Compreh ensive Internal Medicine Work Phone: Comment on above: PATIENT NOT FASTINGP ERFORMED BY: [facility]6370 [facility] [id number] TSH (73921)Ordered By: Syste m Paid Search Specialist on 04-27-2014 Thyrotropin Qn 1.620 {uIU/mL} Normal 0.450-4.500 Compr ehensive Internal Medicine Work Phone: Comment on above: PATIENT NOT FASTINGP ERFORMED BY: [facility]6370 [facility] [id number] CBC W/Diff, AutomatedOrdered By: Quality Compliance Coordinator on 04-25-2014 Absolute Neut 7.4 {X10_3/uL} Normal 2.0-7.7 Compreh ensive Internal Medicine Work Phone: Comment on above: Test performed at:[facility] [address] [place] [address] Basophils/100 WBC (Bld) 0.2 % Normal 0-1 [facility] Work Phone: Comment on above: Test performed at:[facility] [address] [place] [address] Eosinophils/100 WBC (Bld) 0.3 % Normal 0-5 Comprehensive Internal Medicine Work Phone: Comment on above: Test performed at:[facility] [address] [place] [address] Erythrocyte distribution width Ratio (RBC) 14.0 % Normal 11.6-14.6 [facility] Work Phone: Comment on above: Test performed at:[facility] [address] [place] [address] Hematocrit Volume Fraction (Bld) 48.7 % Normal 40-54 [facility] Work Phone: Comment on above: Test performed at:[facility] [address] [place] [address] Hemoglobin mass conc (Bld) 16.6 g/dL Abnormal 13.0-16.5 [facility] Work Phone: Comment on above: Test performed at:[facility] [address] [place] [address] IM GRAN % 0.200 % Normal 0.0-0.9 [facility] Work Phone: Comment on above: IG% - Immature Granu locytes (promyelocytes, myelocytes andmetamyelocytes) > 1% indicates that a LEFT SHIFT is Present. Test performed at:[facility] [address] [place] [address] Lymphocytes #/vol (Bld) 1.15 {X10_3/ul} Normal 0.83-4.51 [facility] Work Phone: Comment on above: Test performed at:[facility] [address] [place] [address] Lymphocytes/100 WBC (Bld) 12.4 % Abnormal 19-41 [facility] Work Phone: Comment on above: Test performed at:[facility] [address] [address] MCH Entitic mass (RBC) 32.2 pg Abnormal 27.0-32.0 [facility] Work Phone: Comment on above: Test performed at:[facility] [address] [address] MCHC mass conc (RBC) 34.1 {g/gl} Normal 32-36 Com prehensive Internal Medicine Work Phone: Comment on above: Test performed at:[facility] [address] [address] MCV Entitic volume (RBC) 94.4 fL Abnormal 80-94 [facility] Work Phone: Comment on above: Test performed at:[facility] [address] [address] Monocytes/100 WBC (Bld) 7.5 % Normal 0-10 [facility] Work Phone: Comment on above: Test performed at:[facility] [address] [place] [address] Neutrophils/100 WBC (Bld) 79.4 % Abnormal 47-70 [facility] Work Phone: Comment on above: Test performed at:[facility] [address] [address] Platelet mean volume Entitic volume (Bld) 9.2 fL Normal 6.2-12.0 Comprehensi ve Internal Medicine Work Phone: Comment on above: Test performed at:[facility] [address] [address] Platelets #/vol (Bld) 144 10*3/uL Abnormal 150-450 [facility] Work Phone: Comment on above: Test performed at:[facility] [address] [place] [address] RBC #/vol (Bld) 5.16 {M/mm3} Normal 4.6-6.2 Compreh ensive Internal Medicine Work Phone: Comment on above: Test performed at:[facility] [address] [place] [address] RDW SD 47.7 fL Abnormal 35.1-43.9 [facility] Work Phone: Comment on above: Test performed at:[facility] [address] [place] [address] WBC #/vol (Bld) 9.3 10*3/uL Normal 4.4-11.0 Comprehe nsive Internal Medicine Work Phone: Comment on above: Test performed at:[facility] [address] [place] [address] CBC W/Diff, Automated 9.3 K/mm3 Normal 4.4-11.0 Com prehensive Internal Medicine Work Phone: CBC W/Diff, Automated 5.16 {M/mm3} Normal 4.6-6.2 C omprehensive Internal Medicine Work Phone: CBC W/Diff, Automated 16.6 g/dL Abnormal 13.0-16.5 Com prehensive Internal Medicine Work Phone: CBC W/Diff, Automated 48.7 % Normal 40-54 Com prehensive Internal Medicine Work Phone: CBC W/Diff, Automated 94.4 fL Abnormal 80-94 Com prehensive Internal Medicine Work Phone: CBC W/Diff, Automated 32.2 pg Abnormal 27.0-32.0 Com prehensive Internal Medicine Work Phone: CBC W/Diff, Automated 34.1 {g/gl} Normal 32-36 Co mprehensive [facility] Work Phone: CBC W/Diff, Automated 14.0 % Normal 11.6-14.6 Com prehensive Internal Medicine Work Phone: CBC W/Diff, Automated 47.7 fL Abnormal 35.1-43.9 Com prehensive Internal Medicine Work Phone: CBC W/Diff, Automated 9.2 fL Normal 6.2-12.0 Com prehensive Internal Medicine Work Phone: CBC W/Diff, Automated 79.4 % Abnormal 47-70 Com prehensive Internal Medicine Work Phone: CBC W/Diff, Automated 12.4 % Abnormal 19-41 Com prehensive Internal Medicine Work Phone: CBC W/Diff, Automated 7.5 % Normal 0-10 Com prehensive Internal Medicine Work Phone: CBC W/Diff, Automated 0.3 % Normal 0-5 Com prehensive Internal Medicine Work Phone: CBC W/Diff, Automated 0.2 % Normal 0-1 Com prehensive Internal Medicine Work Phone: CBC W/Diff, Automated 0.200 % Normal 0.0-0.9 [facility] prehensive Internal Medicine Work Phone: Comment on above: IG% - Immature Granu locytes (promyelocytes, myelocytes andmetamyelocytes) > 1% indicates that a LEFT SHIFT is Present. CBC W/Diff, Automated 7.4 {X10_3/uL} Normal 2.0-7.7 [facility] Work Phone: CBC W/Diff, Automated 1.15 {X10_3/ul} Normal 0.83-4.51 [facility] Work Phone: CBC W/Diff, Automated 144 K/mm3 Abnormal 150-450 Com prehensive Internal Medicine Work Phone: Lipid ProfileOrdered By: Martinez tem Paid Search Specialist on 04-25-2014 Cholesterol in HDL mass conc 47 mg/dL Normal [facility] Work Phone: Comment on above: Reference Range HDL <40 mg/dL Low HDL Cholesterol HDL >or= 60 mg/dL High HDL Cholesterol Test performed at:[facility] [address] [place], [place] [id number] Cholesterol in LDL mass conc 50 mg/dL Normal 0-130 [facility] Work Phone: Comment on above: Test performed at:[facility] [address] [place] [address] Cholesterol in VLDL mass conc 17 mg/dL Normal 5-40 [facility] Work Phone: Comment on above: Test performed at:[facility] [address] [place], [place] [id number] Cholesterol mass conc 114 mg/dL Normal Com prehensive Internal Medicine Work Phone: Comment on above: <200 mg/dL Desirable 200-240 mg/dL Borderline >240 mg/dL High Risk Test performed at:[facility] [address] [place], [place] [phone] Triglyceride mass conc 83 mg/dL Normal 0-199 [facility] Work Phone: Comment on above: Serum Triglycerides Reference Interval Normal <150 mg/dL Borderline high 150 - 199 mg/dL High 200 - 499 mg/dL Very High > or = 500 mg/dL Test performed at:[facility] [address] [place] [address] Lipid Profile 83 mg/dL Normal 0-199 Comprehensi ve Internal Medicine Work Phone: Comment on above: Serum Triglycerides Reference Interval Normal <150 mg/dL Borderline high 150 - 199 mg/dL High 200 - 499 mg/dL Very High > or = 500 mg/dL Lipid Profile 114 mg/dL Normal Comprehensi ve Internal Medicine Work Phone: Comment on above: <200 mg/dL Desirable 200-240 mg/dL Borderline >240 mg/dL High Risk Lipid Profile 47 mg/dL Normal Comprehensi ve Internal Medicine Work Phone: Comment on above: Reference Range HDL <40 mg/dL Low HDL Cholesterol HDL >or= 60 mg/dL High HDL Cholesterol Lipid Profile 17 mg/dL Normal 5-40 Comprehensi ve Internal Medicine Work Phone: MicroalbOrdered By: Tammy granados on 04-25-2014 Microalb 249.6 mg/dL Normal [facility] Work Phone: Comment on above: Test performed at:[facility] [address] [place], [place] [id number] Microalb 72.3 mg/L Normal [facility] Work Phone: Comment on above: Test performed at:[facility] [address] [place], [place] [id number] Microalb 28.9 {mg/g_CRE} Normal [facility] Work Phone: Comment on above: Test performed at:[facility] [address] [place], [place] [id number] Urinalysis, Routine (Dipstic k)Ordered By: Quality Compliance Coordinator on 04-25-2014 Urinalysis, Routine (Dipstick) Normal Normal [facility] Work Phone: Comment on above: How was Urine Obtain ed? CLEAN CATCHTest performed at:[facility] [address] [place] [address] Urinalysis, Routine (Dipstick) Negative Normal [facility] Work Phone: Comment on above: How was Urine Obtain ed? CLEAN CATCHTest performed at:[facility] [address] [place] [address] Urinalysis, Routine (Dipstick) 50 /ul Abnormal [facility] Work Phone: Comment on above: How was Urine Obtain ed? CLEAN CATCHTest performed at:[facility] [address] [place] [address] Urinalysis, Routine (Dipstick) 30 mg/dL Abnormal [facility] Work Phone: Comment on above: How was Urine Obtain ed? CLEAN CATCHTest performed at:[facility] [address] [place] [address] Urinalysis, Routine (Dipstick) 1.020 1 Normal 1.002-1.030 [facility] Work Phone: Comment on above: How was Urine Obtain ed? CLEAN CATCHTest performed at:[facility] [address] [place] [address] Urinalysis, Routine (Dipstick) 50 mg/dL Abnormal [facility] Work Phone: Comment on above: How was Urine Obtain ed? CLEAN CATCHTest performed at:[facility] [address] [place] [address] Urinalysis, Routine (Dipstick) Clear Normal [facility] Work Phone: Comment on above: How was Urine Obtain ed? CLEAN CATCHTest performed at:[facility] [address] [place] [address] Urinalysis, Routine (Dipstick) Yellow Normal [facility] Work Phone: Comment on above: How was Urine Obtain ed? CLEAN CATCHTest performed at:[facility] [address] [place], [place] [id number] Urinalysis, Routine (Dipstick) 6.0 1 Normal 5.0 - 8.0 [facility] Work Phone: Comment on above: How was Urine Obtain ed? CLEAN CATCHTest performed at:[facility] [address] [place], [place] [id number] Blood Glucose , Office ([phone])Ordered By: LIUDMILA Moreno on 12-09-2013 Glucose Glucometer molar conc (BldC) 123 1 Normal [facility] Work Phone: HgA1C , Office ([phone])Ordere d By: LIUDMILA Moreno on 12-09-2013 Hemoglobin A1c/Hemoglobin.total mass fraction (Bld) 6.7 % Normal 4.6 - 7.1 Comprehensiv e [facility] Work Phone: LIPIDOrdered By: Tammy felix on 12-06-2013 LIPID 96 mg/dL Normal 0-199 [facility] Work Phone: Comment on above: Serum Triglycerides Reference IntervalNormal <150 mg/dLBorderline high 150 - 199 mg/dLHigh 200 - 499 mg/dLVery High > or = 500 mg/dL LIPID 140 mg/dL Normal [facility] Work Phone: Comment on above: <200 mg/dL Desirable 200-240 mg/dL Borderline>240 mg/dL High Risk LIPID 41 mg/dL Normal [facility] Work Phone: Comment on above: Reference RangeHDL < 40 mg/dL Low HDL CholesterolHDL >or= 60 mg/dL High HDL Cholesterol LIPID 80 mg/dL Normal 0-130 [facility] Work Phone: LIPID 19 mg/dL Normal 5-40 [facility] Work Phone: PSAOrdered By: System [employer] r on 12-06-2013 PSA 0.58 ng/mL Normal 0.00-4.00 [facility] Work Phone: Comment on above: This test was perfor med using the TPSA assay method for [employer] chemistry system. Values obtained with differentassay methods cannot be used interchangably.When changing PSA assays in the course of monitoring apatient, additional sequential testing should be carriedout to confirm baseline values. Blood Glucose , Office ([phone])Ordered By: LIUDMILA Moreno on 08-05-2013 Glucose Glucometer molar conc (BldC) 167 1 Normal [facility] Work Phone: HgA1C , Office ([phone])Ordere d By: LIUDMILA Moreno on 08-05-2013 Hemoglobin A1c/Hemoglobin.total mass fraction (Bld) 6.2 % Normal 4.6 - 7.1 Comprehensiv e [facility] Work Phone: CBCDOrdered By: System [employer] er on 08-01-2013 CBCD 22.8 % Normal 19-41 [facility] Work Phone: CBCD 6.4 % Normal 0-10 [facility] Work Phone: CBCD 2.4 % Normal 0-5 [facility] Work Phone: CBCD 0.3 % Normal 0-1 [facility] Work Phone: CBCD 0.100 % Normal 0.0-0.9 [facility] Work Phone: Comment on above: IG% - Immature Granu locytes (promyelocytes, myelocytes andmetamyelocytes) > 1% indicates that a LEFT SHIFT is Present. CBCD 5.4 {X10_3/uL} Normal 2.0-7.7 Comprehens kaitlin [facility] Work Phone: CBCD 16.2 g/dL Normal 13.0-16.5 [facility] Work Phone: CBCD 4.98 {M/mm3} Normal 4.6-6.2 Comprehensiv e [facility] Work Phone: CBCD 7.9 K/mm3 Normal 4.4-11.0 [facility] Work Phone: CBCD 14.0 % Normal 11.6-14.6 [facility] Work Phone: CBCD 94.2 fL Abnormal 80-94 [facility] Work Phone: CBCD 34.5 {g/gl} Normal 32-36 [facility] Work Phone: CBCD 47.9 fL Abnormal 35.1-43.9 [facility] Work Phone: CBCD 189 K/mm3 Normal 150-450 [facility] Work Phone: CBCD 9.2 fL Normal 6.2-12.0 [facility] Work Phone: CBCD 68.0 % Normal 47-70 [facility] Work Phone: CBCD 46.9 % Normal 40-54 [facility] Work Phone: CBCD 32.5 pg Abnormal 27.0-32.0 [facility] Work Phone: CMPOrdered By: System Manage r on 08-01-2013 Albumin mass conc 3.6 g/dL Normal 3.4-5.0 Compreh ensive Internal Medicine Work Phone: Albumin/Globulin mass ratio 1.2 {RATIO} Normal 0.9-2.4 [facility] Internal Medicine Work Phone: ALP enzyme act/vol 40 U/L Abnormal 50-136 [facility] Internal Medicine Work Phone: ALT enzyme act/vol 34 U/L Normal 12-78 [facility] Internal Medicine Work Phone: AST enzyme act/vol 28 U/L Normal 15-37 [facility] Internal Medicine Work Phone: Comment on above: Specimen slightly he molyzed. Results may be affected. Bilirubin mass conc 0.40 mg/dL Normal 0.00-1.00 [facility] Internal Medicine Work Phone: Calcium mass conc 8.6 mg/dL Normal 8.5-10.1 [facility] Internal Medicine Work Phone: Chloride molar conc 106 mmol/L Normal 98-107 [facility] Internal Medicine Work Phone: CO2 molar conc 32.0 mmol/L Normal 21.0-32.0 [facility] Internal Medicine Work Phone: Urea nitrogen mass conc 12 mg/dL Normal 7-18 [facility] Internal Medicine Work Phone: Urea nitrogen/Creatinine mass ratio 17.1 {RATIO} Normal 10-20 [facility] Internal Medicine Work Phone: CMP 2 1 Abnormal 5-15 [facility] Work Phone: CMP 4.2 mmol/L Normal 3.5-5.1 [facility] Medicine Work Phone: Comment on above: Specimen slightly he molyzed. Results may be affected. CMP 140 mmol/L Normal 136-145 [facility] Work Phone: CMP 102 mg/dL Normal 70-110 [facility] Work Phone: CMP 0.7 mg/dL Abnormal 0.8-1.3 [facility] Work Phone: CMP 121 mL/min Normal [facility] Work Phone: CMP 147 mL/min Normal [facility] Internal Medicine Work Phone: CMP 6.5 g/dL Normal 6.4-8.2 [facility] Work Phone: CMP 2.9 g/dL Normal 2.7-4.2 [facility] Work Phone: LIPIDOrdered By: Tammy felix on 08-01-2013 LIPID 127 mg/dL Normal 0-199 [facility] Work Phone: Comment on above: Serum Triglycerides Reference IntervalNormal <150 mg/dLBorderline high 150 - 199 mg/dLHigh 200 - 499 mg/dLVery High > or = 500 mg/dL LIPID 159 mg/dL Normal [facility] Work Phone: Comment on above: <200 mg/dL Desirable 200-240 mg/dL Borderline>240 mg/dL High Risk LIPID 25 mg/dL Normal 5-40 [facility] Work Phone: LIPID 97 mg/dL Normal 0-130 [facility] Work Phone: LIPID 37 mg/dL Abnormal [facility] Work Phone: Comment on above: Reference RangeHDL < 40 mg/dL Low HDL CholesterolHDL >or= 60 mg/dL High HDL Cholesterol MIACREOrdered By: Tammy schmidt on 08-01-2013 MIACRE 8.3 {mg/g_CRE} Normal Comprehens k[facility]lin [facility] Work Phone: MIACRE 10.3 mg/L Normal [facility] Work Phone: MIACRE 123.8 mg/dL Normal [facility] Work Phone: Blood Glucose , Office ([phone])Ordered By: LIUDMILA Moreno on 04-08-2013 Glucose Glucometer molar conc (BldC) 137 1 Normal [facility] Work Phone: HgA1C , Office ([phone])Ordere d By: LIUDMILA Moreno on 04-08-2013 Hemoglobin A1c/Hemoglobin.total mass fraction (Bld) 6.0 % Normal 4.6 - 7.1 Comprehensiv e [facility] Work Phone: CAIOOrdered By: System Manag er on 04-06-2013 BALJEET 5.0 mg/dL Normal 4.5-5.6 [facility] Work Phone: Comment on above: Performed at: [address] [id number] Director: Navdeep Galvan MD, Phone: [phone] VITDOrdered By: Tammy Edwards er on 04-06-2013 VITD 38.7 mg/mL Normal [facility] Work Phone: Comment on above: Vitamin D 25(OH) Sta tus RangeDeficiency <20 ng/mL (50nmol/L)Insuffciency 20 - 30 ng/mL (50 - 75 nmol/L)Sufficiency 30 - 100 ng/mL (75 - 250 nmol/L)Toxicity >100 ng/mL (>250 nmol/L) Blood Glucose , Office ([phone])Ordered By: LIUDMILA Moreno on 01-07-2013 Glucose Glucometer molar conc (BldC) 110 1 Normal [facility] Work Phone: HgA1C , Office ([phone])Ordere d By: Mi Burrell on 01-07-2013 Hemoglobin A1c/Hemoglobin.total mass fraction (Bld) 6.5 % Normal 4.6 - 7.1 Comprehensiv e [facility] Medicine Work Phone: Urinalysis, Office ([phone])Or dered By: Cass Ortega on 01-07-2013 Bilirubin Ql (U) Negative Normal Comprehe nsive Internal Medicine Work Phone: Glucose Test strip mass conc (U) Negative Normal [facility] Work Phone: Hemoglobin Ql (U) Negative Normal Compreh ensive [facility] Work Phone: Hemoglobin Test strip Ql (U) Negative Normal [facility] Work Phone: Ketones Ql (U) Negative Normal Comprehens [facility] Work Phone: Leukocyte esterase Test strip Ql (U) Negative Normal [facility] Work Phone: Nitrite Ql (U) Negative Normal Comprehens [facility] Work Phone: Nitrite Test strip Ql (U) Negative Normal [facility] Work Phone: pH (U) 5.0 [pH] Normal [facility] Work Phone: Comment on above: 5.5 pH Test strip (U) 5.0 [pH] Normal Compreh ensive Internal Medicine Work Phone: Comment on above: 5.5 Protein Ql (U) Negative Normal Comprehens k[facility]lin [facility] Work Phone: Protein Test strip Ql (U) Negative Normal [facility] Work Phone: Specific gravity Relative Density (U) 1.020 1 Normal Comprehensi ve Internal Medicine Work Phone: Urobilinogen mass/time (24H U) Normal Normal [facility] Work Phone: Urinalysis, Office ([phone])on 01-07-2013 Bilirubin Ql (U) Negative Normal Comprehe nsive Internal Medicine; [facility] Work Phone: Glucose Test strip (U) [Mass/Vol] Negative Normal [facility]; [facility] Work Phone: Hemoglobin Ql (U) Negative Normal Compreh ensive Internal Medicine; [facility] Work Phone: Ketones Ql (U) Negative Normal Comprehens [facility]; [facility] Work Phone: Leukocyte esterase Test strip Ql (U) Negative Normal [facility]; [facility] Work Phone: Nitrite Ql (U) Negative Normal Comprehens [facility]; [facility] Work Phone: Protein Ql (U) Negative Normal Comprehens [facility]; [facility] Work Phone: CMPOrdered By: System Manage r on 01-04-2013 CMP 3.6 g/dL Normal 3.4-5.0 [facility] Work Phone: CMP 1.3 {RATIO} Normal 0.9-2.4 [facility] Work Phone: CMP 8.4 mg/dL Abnormal 8.5-10.1 [facility] Work Phone: CMP 22 U/L Normal 15-37 [facility] Work Phone: CMP 58 U/L Normal 50-136 [facility] Work Phone: CMP 29.0 mmol/L Normal 21.0-32.0 [facility] Work Phone: CMP 2.8 g/dL Normal 2.7-4.2 [facility] Work Phone: CMP 48 U/L Normal 12-78 [facility] Work Phone: CMP 7 1 Normal 5-15 [facility] Work Phone: CMP 4.1 mmol/L Normal 3.5-5.1 [facility] Work Phone: CMP 103 mmol/L Normal 98-107 [facility] Work Phone: CMP 108 mg/dL Normal 70-110 [facility] Work Phone: CMP 11 mg/dL Normal 7-18 [facility] Work Phone: CMP 0.9 mg/dL Normal 0.8-1.3 [facility] Work Phone: CMP 91 mL/min Normal [facility] Work Phone: CMP 110 mL/min Normal [facility] Work Phone: CMP 12.2 {RATIO} Normal 10-20 Comprehensiv e [facility] Medicine Work Phone: CMP 6.4 g/dL Normal 6.4-8.2 [facility] Work Phone: CMP 0.30 mg/dL Normal 0.00-1.00 [facility] Work Phone: CMP 139 mmol/L Normal 136-145 [facility] Work Phone: LIPIDOrdered By: Tammy felix on 01-04-2013 LIPID 168 mg/dL Normal [facility] Work Phone: Comment on above: <200 mg/dL Desirable 200-240 mg/dL Borderline>240 mg/dL High Risk LIPID 64 mg/dL Abnormal 5-40 [facility] Work Phone: LIPID 80 mg/dL Normal 0-130 [facility] Work Phone: LIPID 24 mg/dL Abnormal [facility] Work Phone: Comment on above: Reference RangeHDL < 40 mg/dL Low HDL CholesterolHDL >or= 60 mg/dL High HDL Cholesterol LIPID 318 mg/dL Abnormal [facility] Work Phone: Comment on above: Serum Triglycerides Reference IntervalNormal <150 mg/dLBorderline high 150 - 199 mg/dLHigh 200 - 499 mg/dLVery High > or = 500 mg/dL Blood Glucose , Office ([phone])Ordered By: LIUDMILA Moreno on 10-08-2012 Glucose Glucometer molar conc (BldC) 148 1 Normal [facility] Work Phone: HgA1C , Office ([phone])Ordere d By: LIUDMILA Moreno on 10-08-2012 Hemoglobin A1c/Hemoglobin.total mass fraction (Bld) 6.7 % Normal 4.6 - 7.1 Comprehensiv e Internal Medicine Work Phone: Urinalysis, Office ([phone])Or dered By: Verna Canchola on 10-08-2012 Bilirubin Ql (U) Negative Normal Comprehe nsive Internal Medicine Work Phone: Bilirubin Ql (U) Negative Normal Comprehe nsive Internal Medicine; [facility] Work Phone: Glucose Test strip (U) [Mass/Vol] Negative Normal [facility]; [facility] Work Phone: Glucose Test strip mass conc (U) Negative Normal [facility] Work Phone: Hemoglobin Ql (U) Non Hemolyzed Trace Normal [facility] Work Phone: Hemoglobin Test strip Ql (U) Non Hemolyzed Trace Normal Comprehensiv e Internal Medicine Work Phone: Ketones Ql (U) Negative Normal Comprehens [facility] Work Phone: Ketones Ql (U) Negative Normal Comprehens [facility]; [facility] Work Phone: Leukocyte esterase Test strip Ql (U) Negative Normal [facility] Work Phone: Leukocyte esterase Test strip Ql (U) Negative Normal [facility]; [facility] Work Phone: Nitrite Ql (U) Negative Normal Comprehens [facility] Work Phone: Nitrite Ql (U) Negative Normal [facility]; [facility] Work Phone: Nitrite Test strip Ql (U) Negative Normal [facility] Work Phone: pH (U) 5.0 [pH] Normal [facility] Work Phone: pH Test strip (U) 5.0 [pH] Normal Compreh ensive [facility] Work Phone: Protein Ql (U) Negative Normal [facility] Work Phone: Protein Ql (U) Negative Normal [facility]; [facility] Work Phone: Protein Test strip Ql (U) Negative Normal [facility] Work Phone: Specific gravity Relative Density (U) 1.025 1 Normal Comprehensi ve [facility] Work Phone: Urobilinogen mass/time (24H U) Normal Normal [facility] Work Phone: CBCMDOrdered By: Tammy felix on 10-05-2012 CBCMD 0.3 % Normal 0-1 [facility] Work Phone: CBCMD 3.2 % Normal 0-5 [facility] Work Phone: CBCMD 7.0 % Normal 0-10 [facility] Work Phone: CBCMD 38.8 % Normal 19-41 [facility] Work Phone: CBCMD 50.6 % Normal 47-70 [facility] Work Phone: CBCMD 8.7 fL Normal 6.2-12.0 [facility] Work Phone: CBCMD 215 K/mm3 Normal 150-450 [facility] Work Phone: CBCMD 13.9 % Normal 11.6-14.6 [facility] Work Phone: CBCMD 45.5 fL Abnormal 35.1-43.9 [facility] Work Phone: CBCMD 0.10 % Abnormal 0.0-0.0 [facility] Work Phone: CBCMD 31.6 pg Normal 27.0-32.0 [facility] Work Phone: CBCMD 34.2 g/dL Normal 32-36 [facility] Work Phone: CBCMD 92.3 fL Normal 80-94 [facility] Work Phone: CBCMD 46.8 % Normal 40-54 [facility] Work Phone: CBCMD 16.0 g/dL Normal 13.0-16.5 [facility] Work Phone: CBCMD 5.07 {M/mm3} Normal 4.6-6.2 Comprehens[facility] e [facility] Work Phone: CBCMD 7.7 {k/mm3} Normal 4.4-11.0 [facility] Work Phone: CBCMD 3.9 3/uL Normal 2.0-7.7 [facility] Work Phone: CMPOrdered By: System Manage r on 10-05-2012 CMP 24 U/L Normal 15-37 [facility] Work Phone: CMP 1.2 {RATIO} Normal 0.9-2.4 [facility] Work Phone: CMP 8.8 mg/dL Normal 8.5-10.1 [facility] Work Phone: CMP 3.1 g/dL Normal 2.7-4.2 [facility] Work Phone: CMP 3.6 g/dL Normal 3.4-5.0 [facility] Work Phone: CMP 15.6 {RATIO} Normal 10-20 Comprehens[facility] e [facility] Work Phone: CMP 6.7 g/dL Normal 6.4-8.2 [facility] Work Phone: CMP 110 mL/min Normal [facility] Work Phone: CMP 91 mL/min Normal [facility] Work Phone: CMP 0.9 mg/dL Normal 0.8-1.3 [facility] Work Phone: CMP 14 mg/dL Normal 7-18 [facility] Work Phone: CMP 118 mg/dL Abnormal 70-110 [facility] Work Phone: Comment on above: Fasting Glucose resu lt from 110 to <126 mg/dLsuggests IMPAIRED HOMEOSTASIS per A.D.A. criteria. CMP 0.40 mg/dL Normal 0.00-1.00 [facility] Work Phone: CMP 143 mmol/L Normal 136-145 [facility] Work Phone: CMP 6 1 Normal 5.0 - 8.0 [facility] Work Phone: CMP 107 mmol/L Normal 98-107 [facility] Work Phone: CMP 30.0 mmol/L Normal 21.0-32.0 [facility] Work Phone: CMP 4.3 mmol/L Normal 3.5-5.1 [facility] Work Phone: CMP 57 U/L Normal 50-136 [facility] Work Phone: CMP 49 U/L Normal 12-78 [facility] Work Phone: LIPIDOrdered By: Tammy felix on 10-05-2012 LIPID 27 mg/dL Abnormal [facility] Work Phone: Comment on above: Reference RangeHDL < 40 mg/dL Low HDL CholesterolHDL >or= 60 mg/dL High HDL Cholesterol LIPID 107 mg/dL Normal 0-130 [facility] Work Phone: LIPID 50 mg/dL Abnormal 5-40 [facility] Work Phone: LIPID 184 mg/dL Normal [facility] Work Phone: Comment on above: <200 mg/dL Desirable 200-240 mg/dL Borderline>240 mg/dL High Risk LIPID 252 mg/dL Abnormal [facility] Work Phone: Comment on above: Serum Triglycerides Reference IntervalNormal <150 mg/dLBorderline high 150 - 199 mg/dLHigh 200 - 499 mg/dLVery High > or = 500 mg/dL MIACREOrdered By: System Man ager on 10-05-2012 MIACRE 7.6 {mg/g_CRE} Normal [facility] Work Phone: MIACRE 15.4 mg/L Normal [facility] Work Phone: MIACRE 201.4 mg/dL Normal [facility] Work Phone: PSAOrdered By: System Manage r on 10-05-2012 PSA 0.48 ng/mL Normal 0.00-4.00 [facility] Work Phone: UAOrdered By: Quality Compliance Coordinator on 10-05-2012 UA Negative Normal [facility] Work Phone: UA 10 /ul Abnormal [facility] Work Phone: UA Normal Normal [facility] Work Phone: UA 1.020 1 Normal 1.002-1.030 [facility] Work Phone: UA Clear Normal [facility] Work Phone: UA Yellow Normal [facility] Work Phone: VITDOrdered By: System Manag er on 10-05-2012 VITD 18.7 ng/mL Normal [facility] Work Phone: Comment on above: Vitamin D 25(OH) Sta tus RangeDeficiency <20 ng/mL (50nmol/L)Insufficiency 20 - 30 ng/mL (50 - 75 nmol/L)Sufficiency 30 - 100 ng/mL (75 - 250 nmol/L)Toxicity >100 ng/mL (250 nmol/L)Effective 2012 [id number] By: System [employer] r on 10-16-2011 Hemoglobin A1c/Hemoglobin.total mass fraction (Bld) 6.8 % Abnormal 4.2-6.3 Comprehens[facility] e [facility] Work Phone: CBCMDOrdered By: System Marya elvira on 10-16-2011 Eosinophils/100 WBC (Bld) 2 % Normal 0-5 [facility] Work Phone: Eosinophils/100 WBC Auto (Bld) 2 % Normal 0-5 [facility] Work Phone: Erythrocyte distribution width Auto Ratio (RBC) 13.5 % Normal 11.6-14.6 [facility] Work Phone: Erythrocyte distribution width Ratio (RBC) 13.5 % Normal 11.6-14.6 [facility] Work Phone: Hematocrit Auto Volume Fraction (Bld) 42.0 % Normal 40-54 [facility] Work Phone: Hematocrit Volume Fraction (Bld) 42.0 % Normal 40-54 [facility] Work Phone: Hemoglobin mass conc (Bld) 14.8 g/dL Normal 14.0-18.0 [facility] Work Phone: Lymphocytes/100 WBC (Bld) 41 % Normal 19-41 [facility] Work Phone: MCH Auto Entitic mass (RBC) 32.9 pg Abnormal 27.0-32.0 [facility] Work Phone: MCH Entitic mass (RBC) 32.9 pg Abnormal 27.0-32.0 [facility] Work Phone: MCHC Auto mass conc (RBC) 35.1 g/dL Normal 32-36 [facility] Work Phone: MCHC mass conc (RBC) 35.1 g/dL Normal 32-36 Comp rehensive [facility] Work Phone: MCV Auto Entitic volume (RBC) 93.6 fL Normal 80-94 [facility] Work Phone: MCV Entitic volume (RBC) 93.6 fL Normal 80-94 [facility] Work Phone: Neutrophils #/vol (Bld) 3.1 3/uL Normal 2.0-7.7 [facility] Work Phone: Neutrophils Auto #/vol (Bld) 3.1 3/uL Normal 2.0-7.7 [facility] Work Phone: Platelets #/vol (Bld) 226 10*3/uL Normal 150-450 Co m[facility] Work Phone: Platelets Auto #/vol (Bld) 226 10*3/uL Normal 150-450 [facility] Work Phone: RBC #/vol (Bld) 4.48 {M/mm3} Abnormal 4.6-6.2 Compre[facility] Work Phone: RBC (Bld) [#/Vol] NORM C+C Normal Compreh [facility]ive [facility] Work Phone: RBC (Bld) [#/Vol] 4.48 10*6/uL Abnormal 4.6-6.2 Compr ehensive [facility]; [facility] Work Phone: RBC Auto #/vol (Bld) 4.48 {M/mm3} Abnormal 4.6-6.2 Co [facility] Work Phone: WBC #/vol (Bld) 6.7 10*3/uL Normal 4.4-11.0 Comprehe nsive [facility] Work Phone: WBC Auto #/vol (Bld) 6.7 10*3/uL Normal 4.4-11.0 Com prehensive [facility] Work Phone: CBCMD NORM C+C Normal [facility] Work Phone: CBCMD ADEQUATE Normal [facility] Work Phone: CBCMD 4 % Normal 0-10 [facility] Work Phone: CBCMD 41 % Normal 19-41 [facility] Work Phone: CBCMD 53 % Normal 47-70 [facility] Work Phone: CBCMD 100 1 Normal [facility] Work Phone: CMPOrdered By: System Manage r on 10-16-2011 Albumin mass conc 3.7 g/dL Normal 3.4-5.0 Compreh ensive [facility] Work Phone: Albumin/Globulin mass ratio 1.3 {RATIO} Normal 0.9-2.4 [facility] Work Phone: ALP enzyme act/vol 51 U/L Normal 50-136 [facility] Work Phone: ALT enzyme act/vol 46 U/L Normal 12-78 [facility] Work Phone: Anion gap 3 molar conc 7 mmol/L Normal 5-15 [facility] Work Phone: Anion gap molar conc 7 mmol/L Normal 5-15 [facility] Work Phone: AST enzyme act/vol 23 U/L Normal 15-37 [facility] Work Phone: Bilirubin mass conc 0.40 mg/dL Normal 0.00-1.00 [facility] Work Phone: Calcium mass conc 8.1 mg/dL Abnormal 8.5-10.1 [facility] Work Phone: Chloride molar conc 103 mmol/L Normal 98-107 [facility] Work Phone: CO2 molar conc 30.0 mmol/L Normal 21.0-32.0 [facility] Work Phone: Creatinine mass conc 0.8 mg/dL Normal 0.8-1.3 [facility] Work Phone: GFR/1.73 sq M predicted among blacks MDRD vol rate/area (S/P/Bld) 126 mL/min/{1.73_m2} Normal [facility] Work Phone: GFR/1.73 sq M.predicted MDRD (S/P/Bld) [Vol rate/Area] 104 mL/min/{1.73_m2} Normal [facility] Work Phone: GFR/1.73 sq M.predicted MDRD vol rate/area 104 mL/min/{1.73_m2} Normal [facility] Internal Medicine Work Phone: Globulin Calculated mass conc (S) 2.8 g/dL Normal 2.7-4.2 [facility] Work Phone: Globulin mass conc (S) 2.8 g/dL Normal 2.7-4.2 [facility] Work Phone: Glucose mass conc 119 mg/dL Abnormal 70-110 Compreh ensive [facility] Work Phone: Comment on above: Fasting Glucose resu lt from 110 to <126 mg/dL suggests IMPAIRED HOMEOSTASIS per A.D.A. criteria. Potassium molar conc 4.3 mmol/L Normal 3.5-5.1 Comp rehensive [facility] Medicine Work Phone: Protein mass conc 6.5 g/dL Normal 6.4-8.2 Compreh ensive [facility] Work Phone: Sodium molar conc 140 mmol/L Normal 136-145 Compreh ensive [facility] Work Phone: Urea nitrogen mass conc 13 mg/dL Normal 7-18 [facility] Work Phone: Urea nitrogen/Creatinine [Mass ratio] 16.3 mg/mg Normal 10-20 [facility]; [facility] Work Phone: Urea nitrogen/Creatinine mass ratio 16.3 {RATIO} Normal 10-20 [facility] Work Phone: LIPIDOrdered By: System Marya felix on 10-16-2011 Cholesterol in HDL mass conc 30 mg/dL Abnormal [facility] Work Phone: Comment on above: Reference Range HDL <40 mg/dL Low HDL Cholesterol HDL >or= 60 mg/dL High HDL Cholesterol Cholesterol in LDL mass conc 69 mg/dL Normal 0-130 [facility] Work Phone: Cholesterol in VLDL mass conc 38 mg/dL Normal 5-40 [facility] Work Phone: Cholesterol mass conc 137 mg/dL Normal Com prehensive [facility] Medicine Work Phone: Comment on above: <200 mg/dL Desirable 200-240 mg/dL Borderline >240 mg/dL High Risk Triglyceride mass conc 191 mg/dL Normal [facility] Work Phone: Comment on above: Serum Triglycerides Reference Interval Normal <150 mg/dL Borderline high 150 - 199 mg/dL High 200 - 499 mg/dL Very High > or = 500 mg/dL MIACREOrdered By: System Man ager on 10-16-2011 Creatinine [Mass/Vol] 5.9 {mg/g_CRE} Normal [facility] Work Phone: MIACRE 5.9 {mg/g_CRE} Normal [facility] Work Phone: MIACRE 163.3 mg/dL Normal [facility] Work Phone: MIACRE 9.7 mg/L Normal [facility] Work Phone: PSAOrdered By: System Manage r on 10-16-2011 Prostate specific Ag mass conc 0.47 ng/mL Normal 0.00-4.00 [facility] Work Phone: Comment on above: NEW TEST ASSAY METHO D OCTOBER 06, 2011This test was performed using the TPSA assay method for [employer] chemistry system. Values obtained with differentassay methods cannot be used interchangably.When changing PSA assays in the course of monitoring apatient, additional sequential testing should be carriedout to confirm baseline values. UACOrdered By: System Manage r on 10-16-2011 RBC (U) [#/Vol] 0-5 SEEN Normal 0-5 [facility] Work Phone: WBC (U) [#/Vol] 0-5 SEEN Normal 0-5 [facility] Work Phone: UAC 0 SEEN Normal [facility] Work Phone: UAC 0-5 SEEN Normal 0-5 [facility] Work Phone: UAC RARE Normal [facility] Work Phone: UAC Negative Normal [facility] Work Phone: UAC 0.2 EU/dl Normal 0.2 - 1.0 [facility] Work Phone: UAC 6.0 1 Normal 5.0-8.0 [facility] Work Phone: UAC 1.025 1 Normal 1.002-1.030 [facility] Work Phone: UAC CLEAR Normal [facility] Work Phone: UAC YELLOW Normal [facility] Work Phone: UAC Negative Normal [facility]; [facility] Work Phone: CBCD,SMEAR DIFFOrdered By: Gifty packer Paid Search Specialist on 05-09-2011 Eosinophils/100 WBC (Bld) 3 % Normal 0-5 [facility] Work Phone: Eosinophils/100 WBC Auto (Bld) 3 % Normal 0-5 [facility] Work Phone: Erythrocyte distribution width Auto Ratio (RBC) 14.3 % Normal 11.6-14.6 [facility] Work Phone: Erythrocyte distribution width Ratio (RBC) 14.3 % Normal 11.6-14.6 [facility] Work Phone: Hematocrit Auto Volume Fraction (Bld) 43.4 % Normal 40-54 Comprehens [facility] Work Phone: Hematocrit Volume Fraction (Bld) 43.4 % Normal 40-54 [facility] Work Phone: Hemoglobin mass conc (Bld) 14.8 g/dL Normal 14.0-18.0 [facility] Work Phone: MCH Auto Entitic mass (RBC) 31.2 pg Normal 27.0-32.0 [facility] Work Phone: MCH Entitic mass (RBC) 31.2 pg Normal 27.0-32.0 [facility] Work Phone: MCHC Auto mass conc (RBC) 34.2 g/dL Normal 32-36 [facility] Work Phone: MCHC mass conc (RBC) 34.2 g/dL Normal 32-36 Comp rehensive [facility] Medicine Work Phone: MCV Auto Entitic volume (RBC) 91.4 fL Normal 80-94 [facility] Work Phone: MCV Entitic volume (RBC) 91.4 fL Normal 80-94 [facility] Work Phone: Neutrophils #/vol (Bld) 3.5 3/uL Normal 2.0-7.7 [facility] Work Phone: Neutrophils Auto #/vol (Bld) 3.5 3/uL Normal 2.0-7.7 [facility] Work Phone: Platelets #/vol (Bld) 229 10*3/uL Normal 150-450 [facility] Work Phone: Platelets Auto #/vol (Bld) 229 10*3/uL Normal 150-450 [facility] Work Phone: RBC #/vol (Bld) 4.75 {M/mm3} Normal 4.6-6.2 Compreh ensive [facility] Work Phone: RBC Auto #/vol (Bld) 4.75 {M/mm3} Normal 4.6-6.2 [facility] Work Phone: WBC #/vol (Bld) 5.7 10*3/uL Normal 4.4-11.0 [facility] Work Phone: WBC Auto #/vol (Bld) 5.7 10*3/uL Normal 4.4-11.0 Com [facility] Work Phone: CBCD,SMEAR DIFF 16 % Abnormal 19-41 Compre[facility] Work Phone: CBCD,SMEAR DIFF 1 % Normal 0-5 [facility] Work Phone: CBCD,SMEAR DIFF 69 % Normal 47-70 [facility] Work Phone: CBCD,SMEAR DIFF 100 1 Normal [facility] Work Phone: CBCD,SMEAR DIFF 11 % Abnormal 0-10 [facility] Work Phone: COMP METABOLICOrdered By: Sy stem Paid Search Specialist on 05-09-2011 Albumin mass conc 3.8 g/dL Normal 3.4-5.0 Compreh ensive [facility] Medicine Work Phone: Albumin/Globulin mass ratio 1.4 {RATIO} Normal 0.9-2.4 [facility] Internal [facility] Work Phone: ALP enzyme act/vol 45 U/L Abnormal 50-136 [facility] Work Phone: ALT enzyme act/vol 39 U/L Normal 12-78 [facility] Internal [facility] Work Phone: Anion gap 3 molar conc 7 mmol/L Normal 5-15 [facility] Work Phone: Anion gap molar conc 7 mmol/L Normal 5-15 [facility] Phone: AST enzyme act/vol 26 U/L Normal 15-37 [facility] Internal [facility] Work Phone: Bilirubin mass conc 0.50 mg/dL Normal 0.00-1.00 Compr [facility] Internal Medicine Work Phone: Calcium mass conc 8.0 mg/dL Abnormal 8.5-10.1 [facility] Work Phone: Chloride molar conc 104 mmol/L Normal 98-107 Com[facility] Internal Medicine Work Phone: CO2 molar conc 31.0 mmol/L Normal 21.0-32.0 [facility] Work Phone: Creatinine mass conc 0.9 mg/dL Normal 0.8-1.3 [facility] Internal Medicine Work Phone: GFR/1.73 sq M predicted among blacks MDRD vol rate/area (S/P/Bld) 110 mL/min/{1.73_m2} Normal Compreh ensive Internal Medicine Work Phone: GFR/1.73 sq M.predicted MDRD vol rate/area 91 mL/min/{1.73_m2} Normal Comprehensiv e Internal Medicine Work Phone: Globulin Calculated mass conc (S) 2.8 g/dL Normal 2.7-4.2 [facility] Internal Medicine Work Phone: Globulin mass conc (S) 2.8 g/dL Normal 2.7-4.2 [facility] Work Phone: Glucose mass conc 99 mg/dL Normal 70-110 Compreh ensive [facility] Medicine Work Phone: Potassium molar conc 3.8 mmol/L Normal 3.5-5.1 Comp rehensive Internal Medicine Work Phone: Protein mass conc 6.6 g/dL Normal 6.4-8.2 Compreh ensive [facility] Work Phone: Sodium molar conc 142 mmol/L Normal 136-145 Compreh ensive [facility] Work Phone: Urea nitrogen mass conc 16 mg/dL Normal 7-18 [facility] Work Phone: Urea nitrogen/Creatinine mass ratio 17.8 {RATIO} Normal 10-20 [facility] Work Phone: COMPLETE UAOrdered By: Bogdan Walter on 05-09-2011 COMPLETE UA SeeNote Normal [facility] Work Phone: Comment on above: Result: NEGATIVE Result: ADEQUATE Result: 0-5 SEEN Result: NORM C+C COMPLETE UA 1+ Abnormal [facility] Work Phone: COMPLETE UA 0 SEEN Normal 0-5 [facility] Work Phone: COMPLETE UA 0.2 EU/dl Normal 0.2 - 1.0 [facility] Work Phone: COMPLETE UA 6.0 1 Normal 5.0-8.0 [facility] Work Phone: COMPLETE UA 1.025 1 Normal 1.002-1.030 Comprehensiv e Internal Medicine Work Phone: COMPLETE UA CLEAR Normal [facility] Work Phone: COMPLETE UA STRAW Normal [facility] Work Phone: LIPIDOrdered By: Tammy felix on 05-09-2011 Cholesterol in HDL mass conc 38 mg/dL Abnormal [facility] Work Phone: Comment on above: Reference Range HDL <40 mg/dL Low HDL Cholesterol HDL >or= 60 mg/dL High HDL Cholesterol Cholesterol in LDL mass conc 60 mg/dL Normal 0-130 [facility] Work Phone: Cholesterol in VLDL mass conc 18 mg/dL Normal 5-40 [facility] Work Phone: Cholesterol mass conc 116 mg/dL Normal Com prehensive Internal Medicine Work Phone: Comment on above: <200 mg/dL Desirable 200-240 mg/dL Borderline >240 mg/dL High Risk Triglyceride mass conc 92 mg/dL Normal [facility] Work Phone: Comment on above: Serum Triglycerides Reference Interval Normal <150 mg/dL Borderline high 150 - 199 mg/dL High 200 - 499 mg/dL Very High > or = 500 mg/dL MICROALBOrdered By: Tammy granados on 05-09-2011 MICROALB 7.4 {mg/g_CRE} Normal Comprehens [facility] Work Phone: MICROALB 14.5 mg/L Normal [facility] Work Phone: MICROALB 195.6 mg/dL Normal [facility] Work Phone: Blood Glucose , Office [phone])Ordered By: LIUDMILA Moreno on 12-31-2010 Glucose Glucometer molar conc (BldC) 113 1 Normal [facility] Work Phone: HgA1C , Office ([phone])Ordere d By: Mi Burrell on 12-31-2010 Hemoglobin A1c/Hemoglobin.total mass fraction (Bld) 7.2 % Abnormal 4.6 - 7.1 Comprehensiv e Internal Medicine Work Phone: CBCD,SMEAR DIFFOrdered By: Gifty ystem Paid Search Specialist on 12-27-2010 Eosinophils/100 WBC (Bld) 3 % Normal 0-5 [facility] Work Phone: Eosinophils/100 WBC Auto (Bld) 3 % Normal 0-5 [facility] Work Phone: Erythrocyte distribution width Auto Ratio (RBC) 13.7 % Normal 11.6-14.6 [facility] Work Phone: Erythrocyte distribution width Ratio (RBC) 13.7 % Normal 11.6-14.6 [facility] Work Phone: Hematocrit Auto Volume Fraction (Bld) 40.9 % Normal 40-54 Comprehens [facility] Work Phone: Hematocrit Volume Fraction (Bld) 40.9 % Normal 40-54 [facility] Work Phone: Hemoglobin mass conc (Bld) 13.9 g/dL Abnormal 14.0-18.0 [facility] Work Phone: MCH Auto Entitic mass (RBC) 31.0 pg Normal 27.0-32.0 [facility] Work Phone: MCH Entitic mass (RBC) 31.0 pg Normal 27.0-32.0 [facility] Work Phone: MCHC Auto mass conc (RBC) 34.0 g/dL Normal 32-36 [facility] Work Phone: MCHC mass conc (RBC) 34.0 g/dL Normal 32-36 [facility] Internal [facility] Work Phone: MCV Auto Entitic volume (RBC) 91.3 fL Normal 80-94 [facility] Work Phone: MCV Entitic volume (RBC) 91.3 fL Normal 80-94 [facility] Internal Medicine Work Phone: Neutrophils #/vol (Bld) 3.1 3/uL Normal 2.0-7.7 [facility] Internal Medicine Work Phone: Neutrophils Auto #/vol (Bld) 3.1 3/uL Normal 2.0-7.7 [facility] Work Phone: Platelets #/vol (Bld) 223 10*3/uL Normal 150-450 [facility] Internal Medicine Work Phone: Platelets Auto #/vol (Bld) 223 10*3/uL Normal 150-450 [facility] Work Phone: RBC #/vol (Bld) 4.48 {M/mm3} Abnormal 4.6-6.2 Compreh ensive Internal Medicine Work Phone: RBC Auto #/vol (Bld) 4.48 {M/mm3} Abnormal 4.6-6.[address] [facility] Work Phone: WBC #/vol (Bld) 6.2 10*3/uL Normal 4.4-11.0 [facility] Work Phone: WBC Auto #/vol (Bld) 6.2 10*3/uL Normal 4.4-11.0 Com prehensive Internal Medicine Work Phone: CBCD,SMEAR DIFF SeeNote Normal 0-5 [facility] Work Phone: Comment on above: Result: NORM C+C Result: ADEQUATE Result: 0-5 SEEN Result: NEGATIVE CBCD,SMEAR DIFF 1+ [facility] Work Phone: CBCD,SMEAR DIFF 4 % Normal 0-10 [facility] Work Phone: CBCD,SMEAR DIFF 41 % Normal 19-41 [facility] Work Phone: CBCD,SMEAR DIFF 52 % Normal 47-70 [facility] Internal Medicine Work Phone: CBCD,SMEAR DIFF 100 1 Normal [facility] Internal Medicine Work Phone: COMP METABOLICOrdered By: Kentrell stem Paid Search Specialist on 12-27-2010 Albumin mass conc 3.6 g/dL Normal 3.4-5.0 [facility] Internal Medicine Work Phone: Albumin/Globulin mass ratio 1.3 {RATIO} Normal 0.9-2.4 [facility] Internal Medicine Work Phone: ALP enzyme act/vol 43 U/L Abnormal 50-136 [facility] Work Phone: ALT enzyme act/vol 45 U/L Normal 12-78 [facility] Internal Medicine Work Phone: Anion gap 3 molar conc 7 mmol/L Normal 5-15 [facility] Internal Medicine Work Phone: Anion gap molar conc 7 mmol/L Normal 5-15 Comp rehensive Internal Medicine Work Phone: AST enzyme act/vol 18 U/L Normal 15-37 [facility] Internal Medicine Work Phone: Bilirubin mass conc 0.30 mg/dL Normal 0.00-1.00 Compr ehensive Internal Medicine Work Phone: Calcium mass conc 8.5 mg/dL Normal 8.5-10.1 Compreh ensive Internal Medicine Work Phone: Chloride molar conc 105 mmol/L Normal 98-107 Compr ehensive Internal Medicine Work Phone: CO2 molar conc 29.0 mmol/L Normal 21.0-32.0 Comprehen sive Internal Medicine Work Phone: Creatinine mass conc 0.9 mg/dL Normal 0.8-1.3 Comp rehensive Internal Medicine Work Phone: GFR/1.73 sq M predicted among blacks MDRD vol rate/area (S/P/Bld) 110 mL/min/{1.73_m2} Normal Compreh ensive Internal Medicine Work Phone: GFR/1.73 sq M.predicted MDRD vol rate/area 91 mL/min/{1.73_m2} Normal Comprehensiv e Internal Medicine Work Phone: Globulin Calculated mass conc (S) 2.8 g/dL Normal 2.7-4.2 [facility] Work Phone: Globulin mass conc (S) 2.8 g/dL Normal 2.7-4.2 [facility] Work Phone: Glucose mass conc 118 mg/dL Abnormal 70-110 Compreh ensive Internal Medicine Work Phone: Comment on above: Fasting Glucose resu lt from 110 to <126 mg/dL suggests IMPAIRED HOMEOSTASIS per A.D.A. criteria. Potassium molar conc 4.0 mmol/L Normal 3.5-5.1 Comp rehensive Internal Medicine Work Phone: Protein mass conc 6.4 g/dL Normal 6.4-8.2 Compreh ensive Internal Medicine Work Phone: Sodium molar conc 141 mmol/L Normal 136-145 Compreh ensive Internal Medicine Work Phone: Urea nitrogen mass conc 14 mg/dL Normal 7-18 [facility] Work Phone: Urea nitrogen/Creatinine mass ratio 15.6 {RATIO} Normal 10-20 [facility] Work Phone: COMPLETE UAOrdered By: Bogdan Walter on 12-27-2010 COMPLETE UA 0 SEEN Normal [facility] Work Phone: COMPLETE UA 0.2 EU/dl Normal 0.2 - 1.0 [facility] Work Phone: COMPLETE UA 6.0 1 Normal 5.0-8.0 [facility] Work Phone: COMPLETE UA 1.025 1 Normal 1.002-1.030 Comprehensiv e Internal Medicine Work Phone: COMPLETE UA CLEAR Normal [facility] Work Phone: COMPLETE UA YELLOW Normal [facility] Work Phone: LIPIDOrdered By: Tammy felix on 12-27-2010 Cholesterol in HDL mass conc 30 mg/dL Abnormal [facility] Work Phone: Comment on above: Reference Range HDL <40 mg/dL Low HDL Cholesterol HDL >or= 60 mg/dL High HDL Cholesterol Cholesterol in LDL mass conc 72 mg/dL Normal 0-130 [facility] Work Phone: Cholesterol in VLDL mass conc 32 mg/dL Normal 5-40 [facility] Work Phone: Cholesterol mass conc 134 mg/dL Normal Com prehensive Internal Medicine Work Phone: Comment on above: <200 mg/dL Desirable 200-240 mg/dL Borderline >240 mg/dL High Risk Triglyceride mass conc 160 mg/dL Normal [facility] Work Phone: Comment on above: Serum Triglycerides Reference Interval Normal <150 mg/dL Borderline high 150 - 199 mg/dL High 200 - 499 mg/dL Very High > or = 500 mg/dL MICROALBOrdered By: Tammy granados on 12-27-2010 MICROALB 147.2 mg/dL Normal [facility] Work Phone: MICROALB 5.2 {mg/g_CRE} Normal Comprehens kaitlin Internal Medicine Work Phone: MICROALB 7.7 mg/L Normal [facility] Work Phone: Blood Glucose , Office ([phone])Ordered By: Katja Thayer on 08-16-2010 Glucose Glucometer molar conc (BldC) 128 1 Normal [facility] Work Phone: HgA1C , Office ([phone])Ordere d By: Mi Burrell on 08-16-2010 Hemoglobin A1c/Hemoglobin.total mass fraction (Bld) 7.1 % Normal 4.6 - 7.1 Comprehensiv e Internal Medicine Work Phone: CBCD,SMEAR DIFFOrdered By: Gifty ystem Paid Search Specialist on 08-12-2010 Eosinophils/100 WBC (Bld) 4 % Normal 0-5 [facility] Work Phone: Eosinophils/100 WBC Auto (Bld) 4 % Normal 0-5 [facility] Work Phone: Erythrocyte distribution width Auto Ratio (RBC) 13.7 % Normal 11.6-14.6 [facility] Work Phone: Erythrocyte distribution width Ratio (RBC) 13.7 % Normal 11.6-14.6 [facility] Work Phone: Hematocrit Auto Volume Fraction (Bld) 40.7 % Normal 40-54 Comprehens kaitlin Internal Medicine Work Phone: Hematocrit Volume Fraction (Bld) 40.7 % Normal 40-54 [facility] Work Phone: Hemoglobin mass conc (Bld) 14.1 g/dL Normal 14.0-18.0 [facility] Work Phone: MCH Auto Entitic mass (RBC) 31.9 pg Normal 27.0-32.0 [facility] Work Phone: MCH Entitic mass (RBC) 31.9 pg Normal 27.0-32.0 [facility] Work Phone: MCHC Auto mass conc (RBC) 34.6 g/dL Normal 32-36 [facility] Work Phone: MCHC mass conc (RBC) 34.6 g/dL Normal 32-36 Comp rehensive Internal Medicine Work Phone: MCV Auto Entitic volume (RBC) 92.1 fL Normal 80-94 [facility] Internal Medicine Work Phone: MCV Entitic volume (RBC) 92.1 fL Normal 80-94 [facility] Internal Medicine Work Phone: Neutrophils #/vol (Bld) 3.3 3/uL Normal 2.0-7.7 [facility] Internal Medicine Work Phone: Neutrophils Auto #/vol (Bld) 3.3 3/uL Normal 2.0-7.7 [facility] Internal Medicine Work Phone: Platelets #/vol (Bld) 309 10*3/uL Normal 150-450 [facility] Internal Medicine Work Phone: Platelets Auto #/vol (Bld) 309 10*3/uL Normal 150-450 [facility] Internal Medicine Work Phone: RBC #/vol (Bld) 4.42 {M/mm3} Abnormal 4.6-6.2 [facility]pre[facility] Internal Medicine Work Phone: RBC Auto #/vol (Bld) 4.42 {M/mm3} Abnormal 4.6-6.2 [facility] Internal Medicine Work Phone: WBC #/vol (Bld) 6.6 10*3/uL Normal 4.4-11.0 [facility] Work Phone: WBC Auto #/vol (Bld) 6.6 10*3/uL Normal 4.4-11.0 [facility] Internal Medicine Work Phone: CBCD,SMEAR DIFF 1+ Normal [facility] Work Phone: CBCD,SMEAR DIFF SeeNote Normal [facility] Work Phone: Comment on above: Result: NORM C+C Result: ADEQUATE CBCD,SMEAR DIFF 30 % Normal 19-41 [facility] Work Phone: CBCD,SMEAR DIFF 4 % Normal 0-10 [facility] Work Phone: CBCD,SMEAR DIFF 62 % Normal 47-70 [facility] Work Phone: CBCD,SMEAR DIFF 100 1 Normal [facility] Internal Medicine Work Phone: COMP METABOLICOrdered By: Kentrell stem Paid Search Specialist on 08-12-2010 Albumin mass conc 3.5 g/dL Normal 3.4-5.0 [facility] ensive Internal Medicine Work Phone: Albumin/Globulin mass ratio 1.2 {RATIO} Normal 0.9-2.4 [facility] Work Phone: ALP enzyme act/vol 46 U/L Abnormal 50-136 [facility] Internal [facility] Work Phone: ALT enzyme act/vol 54 U/L Normal 12-78 [facility] Internal Medicine Work Phone: Anion gap 3 molar conc 7 mmol/L Normal 5-15 [facility] Work Phone: Anion gap molar conc 7 mmol/L Normal 5-15 Comp rehensive Internal Medicine Work Phone: AST enzyme act/vol 25 U/L Normal 15-37 [facility] Internal Medicine Work Phone: Bilirubin mass conc 0.40 mg/dL Normal 0.00-1.00 [facility] Work Phone: Calcium mass conc 8.6 mg/dL Normal 8.5-10.1 [facility] Work Phone: Chloride molar conc 101 mmol/L Normal 98-107 [facility] Work Phone: CO2 molar conc 30.0 mmol/L Normal 21.0-32.0 [facility] Work Phone: Creatinine mass conc 0.9 mg/dL Normal 0.8-1.3 [facility] Work Phone: GFR/1.73 sq M predicted among blacks MDRD vol rate/area (S/P/Bld) 110 mL/min/{1.73_m2} Normal Compreh ensive Internal Medicine Work Phone: GFR/1.73 sq M.predicted MDRD vol rate/area 91 mL/min/{1.73_m2} Normal Comprehensiv e Internal Medicine Work Phone: Globulin Calculated mass conc (S) 3.0 g/dL Normal 2.7-4.2 [facility] Work Phone: Globulin mass conc (S) 3.0 g/dL Normal 2.7-4.2 [facility] Work Phone: Glucose mass conc 129 mg/dL Abnormal 70-110 Compreh ensive Internal Medicine Work Phone: Comment on above: Fasting Glucose resu lt greater than or equal to 126 mg/dL suggests DIABETES MELLITUS per A.D.A. criteria. Potassium molar conc 4.0 mmol/L Normal 3.5-5.1 Comp rehensive Internal Medicine Work Phone: Protein mass conc 6.5 g/dL Normal 6.4-8.2 Compreh ensive Internal Medicine Work Phone: Sodium molar conc 138 mmol/L Normal 136-145 Compreh ensive Internal Medicine Work Phone: Urea nitrogen mass conc 16 mg/dL Normal 7-18 [facility] Work Phone: Urea nitrogen/Creatinine mass ratio 17.8 {RATIO} Normal 10-20 [facility] Work Phone: LIPIDOrdered By: Tammy felix on 08-12-2010 Cholesterol in HDL mass conc 25 mg/dL Abnormal [facility] Work Phone: Comment on above: Reference Range HDL <40 mg/dL Low HDL Cholesterol HDL >or= 60 mg/dL High HDL Cholesterol appt 08/16/10 Cholesterol in LDL mass conc 50 mg/dL Normal 0-130 [facility] Work Phone: Comment on above: appt 08/16/10 Cholesterol in VLDL mass conc 46 mg/dL Abnormal 5-40 [facility] Work Phone: Comment on above: appt 08/16/10 Cholesterol mass conc 121 mg/dL Normal Com prehensive Internal Medicine Work Phone: Comment on above: <200 mg/dL Desirable 200-240 mg/dL Borderline >240 mg/dL High Risk appt 08/16/10 Triglyceride mass conc 230 mg/dL Abnormal [facility] Work Phone: Comment on above: Serum Triglycerides Reference Interval Normal <150 mg/dL Borderline high 150 - 199 mg/dL High 200 - 499 mg/dL Very High > or = 500 mg/dL appt 08/16/10 MICROALBOrdered By: Tammy granados on 08-12-2010 MICROALB 226.2 mg/dL Normal [facility] Work Phone: MICROALB 6.4 {mg/g_CRE} Normal Comprehens kaitlin Internal Medicine Work Phone: MICROALB 14.6 mg/L Normal [facility] Work Phone: PSA, SCREENOrdered By: Bogdan barroso Paid Search Specialist on 08-12-2010 Prostate specific Ag mass conc 0.4 ng/mL Normal 0.0-4.0 [facility] Work Phone: Comment on above: appt 08/16/10 Blood Glucose , Office ([phone])Ordered By: LIUDMILA Moreno on 12-06-2009 Glucose Glucometer molar conc (BldC) 116 1 Normal [facility] Work Phone: COMP METABOLICOrdered By: Kentrell stem Paid Search Specialist on 11-14-2009 Albumin mass conc 3.7 g/dL Normal 3.4-5.0 Compreh ensive Internal Medicine Work Phone: Albumin/Globulin mass ratio 1.2 {RATIO} Normal 0.9-2.4 [facility] Work Phone: ALP enzyme act/vol 50 U/L Normal 50-136 [facility] Work Phone: ALT enzyme act/vol 42 U/L Normal 12-78 [facility] Work Phone: Anion gap 3 molar conc 8 mmol/L Normal 5-15 [facility] Work Phone: Anion gap molar conc 8 mmol/L Normal 5-15 Comp rehensive Internal Medicine Work Phone: AST enzyme act/vol 23 U/L Normal 15-37 [facility] Work Phone: Bilirubin mass conc 0.40 mg/dL Normal 0.00-1.00 Compr ensive Internal Medicine Work Phone: Calcium mass conc 8.4 mg/dL Abnormal 8.5-10.1 Compreh ensive Internal Medicine Work Phone: Chloride molar conc 101 mmol/L Normal 98-107 Compr ensive Internal Medicine Work Phone: CO2 molar conc 30.0 mmol/L Normal 21.0-32.0 [facility] Work Phone: Creatinine mass conc 0.8 mg/dL Normal 0.8-1.3 [facility] Work Phone: GFR/1.73 sq M predicted among blacks MDRD vol rate/area (S/P/Bld) 127 mL/min/{1.73_m2} Normal Compreh ensive Internal Medicine Work Phone: GFR/1.73 sq M.predicted MDRD vol rate/area 105 mL/min/{1.73_m2} Normal Comprehensi ve Internal Medicine Work Phone: Globulin Calculated mass conc (S) 3.0 g/dL Normal 2.7-4.2 [facility] Work Phone: Globulin mass conc (S) 3.0 g/dL Normal 2.7-4.2 [facility] Internal Medicine Work Phone: Glucose mass conc 112 mg/dL Abnormal 70-110 Compreh ensive Internal Medicine Work Phone: Comment on above: Fasting Glucose resu lt from 110 to <126 mg/dLsuggests IMPAIRED HOMEOSTASIS per A.D.A. criteria. Potassium molar conc 4.0 mmol/L Normal 3.5-5.1 Comp rehensive Internal Medicine Work Phone: Protein mass conc 6.7 g/dL Normal 6.4-8.2 Compreh ensive Internal Medicine Work Phone: Sodium molar conc 139 mmol/L Normal 136-145 Compreh ensive Internal Medicine Work Phone: Urea nitrogen mass conc 15 mg/dL Normal 7-18 [facility] Work Phone: Urea nitrogen/Creatinine mass ratio 18.8 {RATIO} Normal 10-20 [facility] Work Phone: LIPIDOrdered By: Tammy felix on 11-14-2009 Cholesterol in HDL mass conc 32 mg/dL Abnormal [facility] Work Phone: Comment on above: Reference RangeHDL < 40 mg/dL Low HDL CholesterolHDL >or= 60 mg/dL High HDL Cholesterol Cholesterol in LDL mass conc 72 mg/dL Normal 0-130 [facility] Work Phone: Cholesterol in VLDL mass conc 43 mg/dL Abnormal 5-40 [facility] Work Phone: Cholesterol mass conc 147 mg/dL Normal Com prehensive Internal Medicine Work Phone: Comment on above: <200 mg/dL Desirable 200-240 mg/dL Borderline>240 mg/dL High Risk Triglyceride mass conc 213 mg/dL Abnormal [facility] Work Phone: Comment on above: Serum Triglycerides Reference IntervalNormal <150 mg/dLBorderline high 150 - 199 mg/dLHigh 200 - 499 mg/dLVery High > or = 500 mg/dL Rapid Flu ([phone] 2)Ordered By: Verna Canchola on 07-27-2009 FLUAV Ag IA Ql (Throat) Negative Normal [facility] Work Phone: FLUAV Ag IA Ql (Throat) Negative Normal [facility]; [facility] Work Phone: Blood Glucose , Office ([phone])Ordered By: LIUDMILA Moreno on 05-24-2009 Glucose Glucometer molar conc (BldC) 140 1 Normal [facility] Work Phone: HgA1C , Office ([phone])Ordere d By: Mi Burrell on 05-24-2009 Hemoglobin A1c/Hemoglobin.total mass fraction (Bld) 6.2 % Normal 4.6 - 7.1 Comprehensiv e Internal Medicine Work Phone: VERT FX ASSESS/LAT BONE DEN( H)Ordered By: Quality Compliance Coordinator on 12-19-2008 VERT FX ASSESS/LAT BONE DEN(H) See Note Normal [facility] Work Phone: Comment on above: Exam Number: [id number] BONE DENSITOMETRY HISTORYStress fracture/abnormal x-ray. TECHNIQUE Bone densitometry of the lumbar spine and both hips is now beingperformed. The best criteria for evaluation of osteoporosis is theT-value, which represents the comparison of the patient's bone mass cooper expected peak bone mass. For most patients, the mean T-value of F7xvuhipp L4 is used to evaluate the lumbar spine. To evaluate the hip,the lower T-value of the femoral neck or total hip is used. FINDINGSIn this patient, the mean T-value of the lumbar spine is based on L1and L2 due to sclerosis seen at L3 and L3. Based on L1 and L2, themean T-value of the lumbar spine is 2.6. This is above the averagerange. This may represent normal variation for this patient, or besecondary to the presence of sclerosis associated with degenerativechange. Digital lateral view for evaluation of vertebral deformityonly demonstrates slight loss of height of T7,T8, and T9. T-value ofthe left femoral neck is 0.1, which is normal. T-value of the totalleft hip is 0.9, which is normal. T-value of the right femoral neckis 0.5, which is normal. T-value of the total right hip is 0.8, whichis normal. IMPRESSIONBone densitometry of the lumbar spine and both hips is within normallimits. VERTEBRAL FRACTURE ASSESSMENT/ABNORMAL LATERAL BONE DENSITY Computerized analysis of the vertebral bodies from T5 through L4 wasperformed. There is a moderate wedge shape of T8. Although by inspection thereis slight anterior wedging of T7 and T9, the values do not falloutside of the range of normal variation. IMPRESSIONThere is a moderate wedge fracture of T8. Reported By: STEVE SEALS M.D. Exam Number: [id number] BONE DENSITOMETRY HISTORYStress fracture/abnormal x-ray. TECHNIQUE Bone densitometry of the lumbar spine and both hips is now beingperformed. The best criteria for evaluation of osteoporosis is theT-value, which represents the comparison of the patient's bone mass cooper expected peak bone mass. For most patients, the mean T-value of A5rkwqoia L4 is used to evaluate the lumbar spine. To evaluate the hip,the lower T-value of the femoral neck or total hip is used. FINDINGSIn this patient, the mean T-value of the lumbar spine is based on L1and L2 due to sclerosis seen at L3 and L3. Based on L1 and L2, themean T-value of the lumbar spine is 2.6. This is above the averagerange. This may represent normal variation for this patient, or besecondary to the presence of sclerosis associated with degenerativechange. Digital lateral view for evaluation of vertebral deformityonly demonstrates slight loss of height of T7,T8, and T9. T-value ofthe left femoral neck is 0.1, which is normal. T-value of the totalleft hip is 0.9, which is normal. T-value of the right femoral neckis 0.5, which is normal. T-value of the total right hip is 0.8, whichis normal. IMPRESSIONBone densitometry of the lumbar spine and both hips is within normallimits. VERTEBRAL FRACTURE ASSESSMENT/ABNORMAL LATERAL BONE DENSITY Computerized analysis of the vertebral bodies from T5 through L4 wasperformed. There is a moderate wedge shape of T8. Although by inspection thereis slight anterior wedging of T7 and T9, the values do not falloutside of the range of normal variation. IMPRESSIONThere is a moderate wedge fracture of T8. Reported By: STEVE SEALS M.D. CHEST, PA AND LATERAL (MT)Or dered By: Quality Compliance Coordinator on 11-10-2008 CHEST, PA AND LATERAL (MT) See Note Normal [facility] Work Phone: Comment on above: Exam Number: [id number] PA AND LATERAL VIEWS OF THE CHEST AND LUMBOSACRAL SPINE SERIES HISTORYA 58-year-old man with upper back pain and lower back pain. Patientis an ex-smoker. Symptoms for the past 2 weeks. PA AND LATERAL VIEWS OF THE CHEST Comparison August 21, 2006. Calcified granuloma in the right lower lung. Lungs are otherwiseclear. Pleural margins are sharp. Mild degenerative changes of thespine with midthoracic slight wedge-configured vertebral bodies whichare unchanged. IMPRESSION1. Old granulomatous disease. No evidence of acute disease.2. Midthoracic consecutive wedge-configured vertebral bodies whichare unchanged. FIVE VIEWS OF THE LUMBOSACRAL SPINE Mild S-shaped scoliosis. Advanced disc degeneration is noted withvacuum disc phenomenon at L4-5 and L5-S1 with moderate to advanceddisc degeneration elsewhere in the lumbar spine. Diffuse facetsclerosis. Moderate spondylosis. No pars defects identified. SIjoints are normal and symmetric with mild sclerosis bilaterally. IMPRESSIONAdvanced degenerative disc disease, moderate spondylosis, andrelatively advanced lower lumbar facet arthritis. Reported By: LINDA SELLERS M.D. Exam Number: [id number] PA AND LATERAL VIEWS OF THE CHEST AND LUMBOSACRAL SPINE SERIES HISTORYA 58-year-old man with upper back pain and lower back pain. Patientis an ex-smoker. Symptoms for the past 2 weeks. PA AND LATERAL VIEWS OF THE CHEST Comparison August 21, 2006. Calcified granuloma in the right lower lung. Lungs are otherwiseclear. Pleural margins are sharp. Mild degenerative changes of thespine with midthoracic slight wedge-configured vertebral bodies whichare unchanged. IMPRESSION1. Old granulomatous disease. No evidence of acute disease.2. Midthoracic consecutive wedge-configured vertebral bodies whichare unchanged. FIVE VIEWS OF THE LUMBOSACRAL SPINE Mild S-shaped scoliosis. Advanced disc degeneration is noted withvacuum disc phenomenon at L4-5 and L5-S1 with moderate to advanceddisc degeneration elsewhere in the lumbar spine. Diffuse facetsclerosis. Moderate spondylosis. No pars defects identified. SIjoints are normal and symmetric with mild sclerosis bilaterally. IMPRESSIONAdvanced degenerative disc disease, moderate spondylosis, andrelatively advanced lower lumbar facet arthritis. Reported By: LINDA SELLERS M.D. Blood Glucose , Office ([phone])Ordered By: LIUDMILA Moreno on 10-25-2008 Glucose Glucometer molar conc (BldC) 100 1 Normal [facility] Work Phone: HgA1C , Office ([phone])Ordere d By: LIUDMILA Moreno on 10-25-2008 Hemoglobin A1c/Hemoglobin.total mass fraction (Bld) 6.1 % Normal 4.6 - 7.1 Comprehensiv e Internal Medicine Work Phone: COMP METABOLICOrdered By: Sy stem Paid Search Specialist on 10-20-2008 Albumin mass conc 3.5 g/dL Normal 3.4-5.0 Compreh ensive Internal Medicine Work Phone: Albumin/Globulin mass ratio 1.2 {RATIO} Normal 0.9-2.4 [facility] Work Phone: ALP enzyme act/vol 57 U/L Normal 50-136 Compre hensive Internal Medicine Work Phone: ALT enzyme act/vol 47 U/L Normal 30-65 [facility] Work Phone: Anion gap 3 molar conc 4 mmol/L Abnormal 5-15 [facility] Work Phone: Anion gap molar conc 4 mmol/L Abnormal 5-15 Comp rehensive Internal Medicine Work Phone: AST enzyme act/vol 19 U/L Normal 15-37 [facility] Work Phone: Bilirubin mass conc 0.30 mg/dL Normal 0.00-1.00 Compr ehensive Internal Medicine Work Phone: Calcium mass conc 8.7 mg/dL Normal 8.5-10.1 Compreh ensive Internal Medicine Work Phone: Chloride molar conc 103 mmol/L Normal 98-107 Compr ensive Internal Medicine Work Phone: CO2 molar conc 32.0 mmol/L Normal 21.0-32.0 [facility] Work Phone: Creatinine mass conc 1.0 mg/dL Normal 0.8-1.3 [facility] Work Phone: GFR/1.73 sq M predicted among blacks MDRD vol rate/area (S/P/Bld) 98 mL/min/{1.73_m2} Normal Comprehe nsive Internal Medicine Work Phone: GFR/1.73 sq M.predicted MDRD vol rate/area 81 mL/min/{1.73_m2} Normal Comprehensiv e Internal Medicine Work Phone: Globulin Calculated mass conc (S) 2.9 g/dL Normal 2.7-4.2 [facility] Work Phone: Globulin mass conc (S) 2.9 g/dL Normal 2.7-4.2 [facility] Work Phone: Glucose mass conc 122 mg/dL Abnormal 70-110 Compreh ensive Internal Medicine Work Phone: Comment on above: Fasting Glucose resu lt from 110 to <126 mg/dL suggests IMPAIRED HOMEOSTASIS per A.D.A. criteria. Potassium molar conc 4.2 mmol/L Normal 3.5-5.1 Comp rehensive Internal Medicine Work Phone: Protein mass conc 6.4 g/dL Normal 6.4-8.2 Compreh ensive Internal Medicine Work Phone: Sodium molar conc 139 mmol/L Normal 136-145 Compreh ensive Internal Medicine Work Phone: Urea nitrogen mass conc 17 mg/dL Normal 7-18 [facility] Work Phone: Urea nitrogen/Creatinine mass ratio 17.0 {RATIO} Normal 10-20 [facility] Work Phone: LIPIDOrdered By: Tammy felix on 10-20-2008 Cholesterol in HDL mass conc 36 mg/dL Normal Comprehensive Internal Medicine Work Phone: Comment on above: Reference Range HDL <40 mg/dL Low HDL Cholesterol HDL >or= 60 mg/dL High HDL Cholesterol Cholesterol in LDL mass conc 67 mg/dL Normal 0-130 [facility] Work Phone: Cholesterol in VLDL mass conc 33 mg/dL Normal 5-40 [facility] Work Phone: Cholesterol mass conc 136 mg/dL Normal Com prehensive Internal Medicine Work Phone: Comment on above: <200 mg/dL Desirable 200-240 mg/dL Borderline >240 mg/dL High Risk Triglyceride mass conc 163 mg/dL Normal [facility] Work Phone: Comment on above: Serum Triglycerides Reference Interval Normal <150 mg/dL Borderline high 150 - 199 mg/dL High 200 - 499 mg/dL Very High > or = 500 mg/dL Blood Glucose , Office ([phone])Ordered By: LIUDMILA Moreno on 05-09-2008 Glucose Glucometer molar conc (BldC) 111 1 Normal [facility] Work Phone: HgA1C , Office ([id number])Ordere d By: Mi Burrell on 05-09-2008 Hemoglobin A1c/Hemoglobin.total mass fraction (Bld) 5.8 % Normal 4.6 - 7.1 Comprehensiv e Internal Medicine Work Phone: CBCD,SMEAR DIFFOrdered By: Gifty holguintem Paid Search Specialist on 05-02-2008 Eosinophils/100 WBC (Bld) 1 % Normal 0-5 [facility] Work Phone: Eosinophils/100 WBC Auto (Bld) 1 % Normal 0-5 [facility] Work Phone: Erythrocyte distribution width Auto Ratio (RBC) 13.5 % Normal 11.6-14.6 [facility] Work Phone: Erythrocyte distribution width Ratio (RBC) 13.5 % Normal 11.6-14.6 [facility] Work Phone: Hematocrit Auto Volume Fraction (Bld) 43.8 % Normal 40-54 Comprehens [facility] Internal Medicine Work Phone: Hematocrit Volume Fraction (Bld) 43.8 % Normal 40-54 [facility] Work Phone: Hemoglobin mass conc (Bld) 14.9 g/dL Normal 14.0-18.0 [facility] Work Phone: MCH Auto Entitic mass (RBC) 31.6 pg Normal 27.0-32.0 [facility] Work Phone: MCH Entitic mass (RBC) 31.6 pg Normal 27.0-32.0 [facility] Work Phone: MCHC Auto mass conc (RBC) 34.0 g/dL Normal 32-36 [facility] Work Phone: MCHC mass conc (RBC) 34.0 g/dL Normal 32-36 [facility] Work Phone: MCV Auto Entitic volume (RBC) 92.8 fL Normal 80-94 [facility] Work Phone: MCV Entitic volume (RBC) 92.8 fL Normal 80-94 [facility] Work Phone: Platelets #/vol (Bld) 259 10*3/uL Normal 150-450 Co mprehensive [facility] Medicine Work Phone: Platelets Auto #/vol (Bld) 259 10*3/uL Normal 150-450 [facility] Work Phone: RBC #/vol (Bld) 4.71 {M/mm3} Normal 4.6-6.2 Compreh ensive Internal Medicine Work Phone: RBC Auto #/vol (Bld) 4.71 {M/mm3} Normal 4.6-6.2 Co mprehensive [facility] Work Phone: WBC #/vol (Bld) 6.9 10*3/uL Normal 4.4-11.0 [facility] Work Phone: WBC Auto #/vol (Bld) 6.9 10*3/uL Normal 4.4-11.0 Com prehensive Internal Medicine Work Phone: CBCD,SMEAR DIFF 5 % Normal 0-10 Comprehen [facility] Internal Medicine Work Phone: CBCD,SMEAR DIFF 2 % Abnormal 0-1 Comprehen [facility] Internal Medicine Work Phone: CBCD,SMEAR DIFF 100 1 Normal Comprehen [facility] Internal Medicine Work Phone: CBCD,SMEAR DIFF 39 % Normal 19-41 Comprehen [facility] Internal Medicine Work Phone: CBCD,SMEAR DIFF SeeNote [facility] Work Phone: Comment on above: Result: ADEQUATE Result: NORM C+C CBCD,SMEAR DIFF 2+ [facility] Work Phone: CBCD,SMEAR DIFF 53 % Normal 47-70 [facility] Work Phone: COMP METABOLICOrdered By: Kentrell stem Paid Search Specialist on 05-02-2008 Albumin mass conc 3.8 g/dL Normal 3.4-5.0 Compreh [facility] Internal Medicine Work Phone: Albumin/Globulin mass ratio 1.2 {RATIO} Normal 0.9-2.4 [facility] Work Phone: ALP enzyme act/vol 56 U/L Normal 50-136 Compre [facility] Internal Medicine Work Phone: ALT enzyme act/vol 59 U/L Normal 30-65 Compre [facility] Internal Medicine Work Phone: Anion gap 3 molar conc 1 mmol/L Abnormal 5-15 [facility] Work Phone: Anion gap molar conc 1 mmol/L Abnormal 5-15 Comp rehensive Internal Medicine Work Phone: AST enzyme act/vol 27 U/L Normal 15-37 Compre hensive Internal Medicine Work Phone: Bilirubin mass conc 0.34 mg/dL Normal 0.00-1.00 Compr ehensive Internal Medicine Work Phone: Calcium mass conc 8.8 mg/dL Normal 8.5-10.1 Compreh ensive Internal Medicine Work Phone: Chloride molar conc 105 mmol/L Normal 98-107 Compr ensive Internal Medicine Work Phone: CO2 molar conc 34.1 mmol/L Abnormal 21.0-32.0 Comprehen [facility] Work Phone: Creatinine mass conc 0.7 mg/dL Abnormal 0.8-1.3 [facility] Work Phone: Globulin Calculated mass conc (S) 3.1 g/dL Normal 2.7-4.2 [facility] Work Phone: Globulin mass conc (S) 3.1 g/dL Normal 2.7-4.2 [facility] Work Phone: Glucose mass conc 118 mg/dL Abnormal 70-110 [facility] Work Phone: Comment on above: Fasting Glucose resu lt from 110 to <126 mg/dL suggests IMPAIRED HOMEOSTASIS per A.D.A. criteria. Potassium molar conc 4.3 mmol/L Normal 3.5-5.1 Comp rehensive Internal Medicine Work Phone: Protein mass conc 6.9 g/dL Normal 6.4-8.2 [facility] Work Phone: Sodium molar conc 140 mmol/L Normal 136-145 [facility] Work Phone: Urea nitrogen mass conc 16 mg/dL Normal 7-18 [facility] Work Phone: Urea nitrogen/Creatinine mass ratio 22.9 {RATIO} Abnormal - [facility] Work Phone: LIPIDOrdered By: System [employer] on 05-02-2008 Cholesterol in HDL mass conc 35 mg/dL Normal [facility] Work Phone: Comment on above: Reference Range HDL <40 mg/dL Low HDL Cholesterol HDL >or= 60 mg/dL High HDL Cholesterol Cholesterol in LDL mass conc 80 mg/dL Normal 0-130 [facility] Work Phone: Cholesterol in VLDL mass conc 26 mg/dL Normal 5-40 [facility] Work Phone: Cholesterol mass conc 141 mg/dL Normal Com prehensive Internal Medicine Work Phone: Comment on above: <200 mg/dL Desirable 200-240 mg/dL Borderline >240 mg/dL High Risk Triglyceride mass conc 132 mg/dL Normal [facility] Work Phone: Comment on above: Serum Triglycerides Reference Interval Normal <150 mg/dL Borderline high 150 - 199 mg/dL High 200 - 499 mg/dL Very High > or = 500 mg/dL PSA,TOT SCREENOrdered By: [employer] on 05-02-2008 Prostate specific Ag mass conc 0.31 ng/mL Normal 0.00-4.00 [facility] Work Phone: Comment on above: This test was perfor med using the TPSA method for theDimension chemistry system.Values obtained with different assay methods cannot be usedinterchangably.When changing PSA assays in the course of monitoring apatient, additional sequential testing should be carriedout to confirm baseline values. Blood Glucose , Office ([phone])Ordered By: LIUDMILA Moreno on 10-19-2007 Glucose Glucometer molar conc (BldC) 133 1 Normal [facility] Work Phone: HgA1C , Office ([phone])Ordere d By: LIUDMILA Moreno on 10-19-2007 Hemoglobin A1c/Hemoglobin.total mass fraction (Bld) 6.1 % Normal 4.6 - 7.1 Comprehensiv e Internal Medicine Work Phone: LIPIDOrdered By: System Marya [employer] on 10-05-2007 Cholesterol in HDL mass conc 30 mg/dL Abnormal [facility] Work Phone: Comment on above: Reference Range HDL <40 mg/dL Low HDL Cholesterol HDL >or= 60 mg/dL High HDL Cholesterol Cholesterol in LDL mass conc 71 mg/dL Normal 0-130 [facility] Work Phone: Cholesterol in VLDL mass conc 18 mg/dL Normal 5-40 [facility] Work Phone: Cholesterol mass conc 119 mg/dL Normal Com prehensive Internal Medicine Work Phone: Comment on above: <200 mg/dL Desirable 200-240 mg/dL Borderline >240 mg/dL High Risk Triglyceride mass conc 91 mg/dL Normal [facility] Work Phone: Comment on above: Serum Triglycerides Reference Interval Normal <150 mg/dL Borderline high 150 - 199 mg/dL High 200 - 499 mg/dL Very High > or = 500 mg/dL LIVEROrdered By: [employer]ertility [employer]a [employer] on 10-05-2007 Albumin mass conc 3.7 g/dL Normal 3.4-5.0 Compreh ensive Internal Medicine Work Phone: ALP enzyme act/vol 56 U/L Normal 50-136 Compre hensive Internal Medicine Work Phone: ALT enzyme act/vol 56 U/L Normal 30-65 [facility] Work Phone: AST enzyme act/vol 32 U/L Normal 15-37 [facility] Work Phone: Bilirubin mass conc 0.45 mg/dL Normal 0.00-1.00 Compr ehensive Internal Medicine Work Phone: Protein mass conc 6.6 g/dL Normal 6.4-8.2 Compreh ensive Internal Medicine Work Phone: LIVER 0.05 mg/dL Normal 0.00-0.30 [facility] Work Phone: HgA1C , Office ([id number])Ordere d By: LIUDMILA Moreno on 06-24-2007 Hemoglobin A1c/Hemoglobin.total mass fraction (Bld) 5.9 % Normal 4.6 - 7.1 Comprehensiv e Internal Medicine Work Phone: GLUOrdered By: [employer] on 06-10-2007 Glucose mass conc 124 mg/dL Abnormal 70-110 Compreh ensive Internal Medicine Work Phone: Comment on above: Fasting Glucose resu lt from 110 to <126 mg/dL suggests IMPAIRED HOMEOSTASIS per A.D.A. criteria. LIPIDOrdered By: [employer] on 06-10-2007 Cholesterol in HDL mass conc 30 mg/dL Abnormal [facility] Work Phone: Comment on above: Reference Range HDL <40 mg/dL Low HDL Cholesterol HDL >or= 60 mg/dL High HDL Cholesterol Cholesterol in LDL mass conc 111 mg/dL Normal 0-130 [facility] Work Phone: Cholesterol in VLDL mass conc 42 mg/dL Abnormal 5-40 [facility] Work Phone: Cholesterol mass conc 183 mg/dL Normal Com prehensive Internal Medicine Work Phone: Comment on above: <200 mg/dL Desirable 200-240 mg/dL Borderline >240 mg/dL High Risk Triglyceride mass conc 211 mg/dL Abnormal [facility] Work Phone: Comment on above: Serum Triglycerides Reference Interval Normal <150 mg/dL Borderline high 150 - 199 mg/dL High 200 - 499 mg/dL Very High > or = 500 mg/dL LIVEROrdered By: [employer] on 06-10-2007 Albumin mass conc 3.6 g/dL Normal 3.4-5.0 Compreh ensive Internal Medicine Work Phone: ALP enzyme act/vol 53 U/L Normal 50-136 [facility] Work Phone: ALT enzyme act/vol 57 [iU]/L Normal 30-65 [facility] Work Phone: AST enzyme act/vol 24 U/L Normal 15-37 [facility] Work Phone: Bilirubin mass conc 0.35 mg/dL Normal 0.00-1.00 Compr ehensive Internal Medicine Work Phone: Protein mass conc 6.6 g/dL Normal 6.4-8.2 Compreh ensive Internal Medicine Work Phone: LIVER 0.08 mg/dL Normal 0.00-0.30 [facility] Work Phone: CBCDOrdered By: System Manag er on 11-03-2006 Basophils/100 WBC (Bld) 0.4 % Normal 0-1 [facility] Work Phone: Basophils/100 WBC Auto (Bld) 0.4 % Normal 0-1 [facility] Work Phone: Eosinophils/100 WBC (Bld) 3.7 % Normal 0-5 [facility] Work Phone: Eosinophils/100 WBC Auto (Bld) 3.7 % Normal 0-5 [facility] Work Phone: Erythrocyte distribution width Auto Ratio (RBC) 13.6 % Normal 11.6-14.6 [facility] Work Phone: Erythrocyte distribution width Ratio (RBC) 13.6 % Normal 11.6-14.6 [facility] Work Phone: Hematocrit Auto Volume Fraction (Bld) 41.4 % Normal 40-54 Comprehens k[facility]lin Internal Medicine Work Phone: Hematocrit Volume Fraction (Bld) 41.4 % Normal 40-54 [facility] Work Phone: Hemoglobin mass conc (Bld) 14.4 g/dL Normal 14.0-18.0 [facility] Work Phone: Lymphocytes/100 WBC (Bld) 39.7 % Normal 19-41 [facility] Work Phone: Lymphocytes/100 WBC Auto (Bld) 39.7 % Normal 19-41 [facility] Work Phone: MCH Auto Entitic mass (RBC) 31.7 pg Normal 27.0-32.0 [facility] Work Phone: MCH Entitic mass (RBC) 31.7 pg Normal 27.0-32.0 [facility] Work Phone: MCHC Auto mass conc (RBC) 34.9 g/dL Normal 32-36 [facility] Work Phone: MCHC mass conc (RBC) 34.9 g/dL Normal 32-36 Comp rehensive Internal Medicine Work Phone: MCV Auto Entitic volume (RBC) 90.9 fL Normal 80-94 [facility] Work Phone: MCV Entitic volume (RBC) 90.9 fL Normal 80-94 [facility] Work Phone: Monocytes/100 WBC (Bld) 5.3 % Normal 0-10 [facility] Work Phone: Monocytes/100 WBC Auto (Bld) 5.3 % Normal 0-10 [facility] Work Phone: Neutrophils/100 WBC (Bld) 50.9 % Normal 47-70 [facility] Work Phone: Neutrophils/100 WBC Auto (Bld) 50.9 % Normal 47-70 [facility] Work Phone: Platelet mean volume Auto Entitic volume (Bld) 6.9 fL Normal 6.5-12.0 [facility] Work Phone: Platelet mean volume Entitic volume (Bld) 6.9 fL Normal 6.5-12.0 Comprehensi ve Internal Medicine Work Phone: Platelets #/vol (Bld) 270 10*3/uL Normal 150-450 Co mprehensive [facility] Work Phone: Platelets Auto #/vol (Bld) 270 10*3/uL Normal 150-450 [facility] Work Phone: RBC #/vol (Bld) 4.56 {M/mm3} Abnormal 4.6-6.2 Compreh ensive Internal Medicine Work Phone: RBC Auto #/vol (Bld) 4.56 {M/mm3} Abnormal 4.6-6.2 Co mprehensive [facility] Work Phone: WBC #/vol (Bld) 6.0 10*3/uL Normal 4.4-11.0 Comprehe nsive Internal Medicine Work Phone: WBC Auto #/vol (Bld) 6.0 10*3/uL Normal 4.4-11.0 Com prehensive Internal Medicine Work Phone: COMP METABOLICOrdered By: Kentrell stem Paid Search Specialist on 11-03-2006 Albumin mass conc 3.8 g/dL Normal 3.4-5.0 Compreh ensive Internal Medicine Work Phone: Albumin/Globulin mass ratio 1.3 {RATIO} Normal 0.9-2.4 [facility] Work Phone: ALP enzyme act/vol 55 U/L Normal 50-136 Compre [facility] Internal Medicine Work Phone: ALT enzyme act/vol 66 [iU]/L Abnormal 30-65 [facility] Internal Medicine Work Phone: Anion gap 3 molar conc 7 mmol/L Normal 5-15 [facility] Work Phone: Anion gap molar conc 7 mmol/L Normal 5-15 Comp rehensive Internal Medicine Work Phone: AST enzyme act/vol 28 U/L Normal 15-37 [facility] Work Phone: Bilirubin mass conc 0.38 mg/dL Normal 0.00-1.00 Compr ensive Internal Medicine Work Phone: Calcium mass conc 8.3 mg/dL Abnormal 8.5-10.1 Compreh ensive Internal Medicine Work Phone: Chloride molar conc 104 mmol/L Normal 98-107 Compr ensive Internal Medicine Work Phone: CO2 molar conc 30.1 mmol/L Abnormal 22.0-29.0 Comprehen [facility] Internal Medicine Work Phone: Creatinine mass conc 1.0 mg/dL Normal 0.8-1.3 [facility] Work Phone: Globulin Calculated mass conc (S) 2.9 g/dL Normal 2.3-3.5 [facility] Internal Medicine Work Phone: Globulin mass conc (S) 2.9 g/dL Normal 2.3-3.5 [facility] Internal Medicine Work Phone: Glucose mass conc 111 mg/dL Abnormal 70-110 [facility] Work Phone: Comment on above: Fasting Glucose resu lt from 110 to <126 mg/dL suggests IMPAIRED HOMEOSTASIS per A.D.A. criteria. Potassium molar conc 4.2 mmol/L Normal 3.5-5.1 Comp rehensive Internal Medicine Work Phone: Protein mass conc 6.7 g/dL Normal 6.4-8.2 Compreh ensive Internal Medicine Work Phone: Sodium molar conc 141 mmol/L Normal 136-145 Compreh ensive Internal Medicine Work Phone: Urea nitrogen mass conc 8 mg/dL Normal 7-18 [facility] Work Phone: Urea nitrogen/Creatinine mass ratio 8.0 {RATIO} Abnormal 10-20 [facility] Work Phone: LIPIDOrdered By: Tammy felix on 11-03-2006 Cholesterol in HDL mass conc 33 mg/dL Abnormal [facility] Work Phone: Comment on above: Reference Range HDL <40 mg/dL Low HDL Cholesterol HDL >or= 60 mg/dL High HDL Cholesterol Cholesterol in LDL mass conc 73 mg/dL Normal 0-130 [facility] Work Phone: Cholesterol in VLDL mass conc 33 mg/dL Normal 5-40 [facility] Work Phone: Cholesterol mass conc 139 mg/dL Normal Com prehensive Internal Medicine Work Phone: Comment on above: <200 mg/dL Desirable 200-240 mg/dL Borderline >240 mg/dL High Risk Triglyceride mass conc 166 mg/dL Normal [facility] Work Phone: Comment on above: Serum Triglycerides Reference Interval Normal <150 mg/dL Borderline high 150 - 199 mg/dL High 200 - 499 mg/dL Very High > or = 500 mg/dL PSA,TOT SCREENOrdered By: Sy stem Paid Search Specialist on 11-03-2006 Prostate specific Ag mass conc 0.34 ng/mL Normal 0.00-4.00 [facility] Work Phone: Comment on above: This test was perfor med using the TPSA method for theDiBlow[employer]chsi[employer]ulus chemistry system.Values obtained with different assay methods cannot be usedinterchangably.When changing PSA assays in the course of monitoring apatient, additionaly sequential testing should be carriedout to confirm baseline values. CHEST, PA AND LATERALOrdered By: Quality Compliance Coordinator on 08-21-2006 CHEST, PA AND LATERAL See Note Normal Com prehensive Internal Medicine Work Phone: Comment on above: Exam Number: [id number] PA AND LATERAL CHEST For lung nodule. Cardiac configuration is normal. No acute infiltrate, effusion orpneumothorax is identified. A small 6 mm. nodule is seen in the rightlower lung is unchanged in appearance from the previous study of01/21/06 and is thought to be benign. No infiltrate, effusion orpneumothorax is noted. There is spur formation in the mid dorsalspine. IMPRESSION1) No acute change noted in the lungs.2) No change in nodule. Reported By: IVETT WINSLOW M.D. Vital Signs Date Time Vital Sign Value Performing Clinician Facility 02-20-2023 13:19-0400 Body height 182.88 cm LIUDMILA Moreno LPN [facility]; [facility] Work Phone: 02-20-2023 13:19-0400 Body mass index (BMI) [Ratio] 25.23 kg/m2 LIUDMILA Moreno LPN [facility]; [facility] Work Phone: 02-20-2023 13:19-0400 Body surface area Derived from formula 2.07 m2 LIUDMILA Moreno LPN [facility]; [facility] Work Phone: 02-20-2023 13:19-0400 Body temperature 97.6 [degF] LIUDMILA Moreno LPN [facility]; [facility] Work Phone: 02-20-2023 13:19-0400 Body weight 84.37 kg LIUDMILA Moreno LPN [facility]; [facility] Work Phone: 02-20-2023 13:19-0400 Diastolic blood pressure 78 mm[Hg] LIUDMILA Moreno LPN [facility]; [facility] Work Phone: 02-20-2023 13:19-0400 Heart rate 70 /min LIUDMILA Moreno LPN [facility]; [facility] Work Phone: 02-20-2023 13:19-0400 Respiratory rate 18 /min LIUDMILA Moreno [facility]; [facility] Work Phone: 02-20-2023 13:19-0400 SaO2% (BldA) [Mass fraction] 98 % LIUDMILA Moreno [facility]; [facility] Work Phone: 02-20-2023 13:19-0400 Systolic blood pressure 120 mm[Hg] LIUDMILA Moreno [facility]; [facility] Work Phone: 10-01-2022 15:07-0400 Body height 182.88 cm [facility]; [facility] Work Phone: 10-01-2022 15:07-0400 Body mass index (BMI) [Ratio] 26.31 kg/m2 [facility]; [facility] Work Phone: 10-01-2022 15:07-0400 Body surface area Derived from formula 2.1 m2 [facility]; [facility] Work Phone: 10-01-2022 15:07-0400 Body temperature 98.3 [degF] [facility]; [facility] Work Phone: 10-01-2022 15:07-0400 Body weight 88 kg [facility]; [facility] Work Phone: 10-01-2022 15:07-0400 Diastolic blood pressure 80 mm[Hg] [facility]; [facility] Work Phone: 10-01-2022 15:07-0400 Heart rate 73 /min [facility]; [facility] Work Phone: 10-01-2022 15:07-0400 Respiratory rate 18 /min [facility]; [facility] Work Phone: 10-01-2022 15:07-0400 SaO2% (BldA) [Mass fraction] 96 % [facility]; [facility] Work Phone: 10-01-2022 15:07-0400 Systolic blood pressure 138 mm[Hg] [facility]; [facility] Work Phone: 06-27-2022 14:57-0500 Body height 182.88 cm Alexa [facility]; [facility] Work Phone: 06-27-2022 14:57-0500 Body mass index (BMI) [Ratio] 25.71 kg/m2 [facility]; [facility] Work Phone: 06-27-2022 14:57-0500 Body surface area Derived from formula 2.08 m2 [facility] Work Phone: 06-27-2022 14:57-0500 Body temperature 98.2 [degF] [facility] Work Phone: 06-27-2022 14:57-0500 Body [facility] 85.99 [facility] Work Phone: 06-27-2022 14:57-0500 Diastolic blood pressure 72 mm[Hg] [facility]; [facility] Work Phone: 06-27-2022 14:57-0500 Heart rate 66 /min [facility]; [facility] Work Phone: 06-27-2022 14:57-0500 Respiratory rate 16 /min [facility]; [facility] Work Phone: 06-27-2022 14:57-0500 SaO2% (BldA) [Mass fraction] 95 % [facility]; [facility] Work Phone: 02-10-2023 14:57-0500 Systolic blood pressure 128 mm[Hg] Alexa Garcianette [facility]; [facility] Work Phone: 03-28-2022 13:46-0500 Body temperature 97.7 [degF] [facility]; [facility] Work Phone: 03-28-2022 13:46-0500 Diastolic blood pressure 80 mm[Hg] [facility]; [facility] Work Phone: 03-28-2022 13:46-0500 Heart rate 92 /min [facility]; [facility] Work Phone: 03-28-2022 13:46-0500 Respiratory rate 16 /min [facility]; [facility] Work Phone: 03-28-2022 13:46-0500 SaO2% (BldA) [Mass fraction] 95 % [facility]; [facility] Work Phone: 03-28-2022 13:46-0500 Systolic blood pressure 130 mm[Hg] [facility]; [facility] Work Phone: 03-27-2022 17:47-0500 Body temperature 98.2 [degF] Kirstin Richardson HOBBER.MANAGER VIDEO Work Phone: [facility] 03-27-2022 17:47-0500 Body weight 87.45 kg Kirstin Richardson HOBBER.MANAGER VIDEO Work Phone: [facility] 03-27-2022 17:47-0500 Diastolic blood pressure 84 mm[Hg] Kirstin Richardson HOBBER.MANAGER VIDEO Work Phone: [facility] 03-27-2022 17:47-0500 Heart rate 81 /min Kirstin Richardson HOBBER.MANAGER VIDEO Work Phone: [facility] 03-27-2022 17:47-0500 Respiratory rate 18 /min Kirstin Richardson HOBBER.MANAGER VIDEO Work Phone: [facility] 03-27-2022 17:47-0500 SaO2% (BldA) [Mass fraction] 96 % Kirstin Richardson APRN.MANAGER VIDEO Work Phone: [facility] 03-27-2022 17:47-0500 Systolic blood pressure 144 mm[Hg] Kirstin Richardson APRN.MANAGER VIDEO Work Phone: [facility] 03-14-2022 13:20-0400 Body height 182.88 cm Maryjo Tsang MA [facility]; [facility] Work Phone: 03-14-2022 13:20-0400 Body mass index (BMI) [Ratio] 25.3 kg/m2 Maryjo Tsang MA [facility]; [facility] Work Phone: 03-14-2022 13:20-0400 Body surface area Derived from formula 2.07 m2 Maryjo Tsang MA [facility]; [facility] Work Phone: 03-14-2022 13:20-0400 Body temperature 97.2 [degF] Maryjo Tsang MA [facility]; [facility] Work Phone: 03-14-2022 13:20-0400 Body weight 84.62 kg Maryjo Tsang MA [facility]; [facility] Work Phone: 03-14-2022 13:20-0400 Diastolic blood pressure 80 mm[Hg] Maryjo Tsang MA [facility]; [facility] Work Phone: 03-14-2022 13:20-0400 Heart rate 75 /min Maryjo Tsang MA [facility]; [facility] Work Phone: 03-14-2022 13:20-0400 Respiratory rate 16 /min Maryjo Tsang MA [facility]; [facility] Work Phone: 03-14-2022 13:20-0400 SaO2% (BldA) [Mass fraction] 98 % Maryjo Tsang MA [facility]; [facility] Work Phone: 03-14-2022 13:20-0400 Systolic blood pressure 130 mm[Hg] Maryjo Tsang MA [facility]; [facility] Work Phone: 11-11-2021 15:16-0400 Body height 182.88 cm Esmerbradford Larsen HELIO [facility]; [facility] Work Phone: 11-11-2021 15:16-0400 Body mass index (BMI) [Ratio] 25.26 kg/m2 Emser Larsen LPN [facility]; [facility] Work Phone: 11-11-2021 15:16-0400 Body surface area Derived from formula 2.07 m2 Esmer Larsen LPN [facility]; [facility] Work Phone: 11-11-2021 15:16-0400 Body temperature 97 [degF] Esmer Chava HELIO [facility]; [facility] Work Phone: 11-11-2021 15:16-0400 Body weight 84.48 kg Esmer Chava CADET [facility]; [facility] Work Phone: 11-11-2021 15:16-0400 Diastolic blood pressure 82 mm[Hg] Esmer Larsen LPN [facility]; [facility] Work Phone: Comment on above: Patient Position: Sitting; Cuff Location : Left Arm; Cuff Size: Standard 11-11-2021 15:16-0400 Heart rate 74 /min Esmer Larsen LPN [facility]; [facility] Work Phone: Comment on above: Pattern: Regular 11-11-2021 15:16-0400 Respiratory rate 16 /min Esmer Chava LPN [facility]; [facility] Work Phone: Comment on above: Pattern: Unlabored 11-11-2021 15:16-0400 SaO2% (BldA) [Mass fraction] 94 % Esmer Chava LPN [facility]; [facility] Work Phone: Comment on above: Room air 11-11-2021 15:16-0400 Systolic blood pressure 130 mm[Hg] Esmer Larsen LPN [facility]; [facility] Work Phone: Comment on above: Patient Position: Sitting; Cuff Location : Left Arm; Cuff Size: Standard 08-07-2021 15:09-0400 Body height 182.88 cm Antonette Medina [facility]; [facility] Work Phone: 08-07-2021 15:09-0400 Body mass index (BMI) [Ratio] 26.31 kg/m2 Antonette Medina [facility]; [facility] Work Phone: 08-07-2021 15:090400 Body surface area Derived from formula 2.1 m2 Antonette Medina [facility]; [facility] Work Phone: 08-07-2021 15:09-0400 Body temperature 97.3 [degF] Antonette Medina [facility]; [facility] Work Phone: Comment on above: Method: Infrared 08-07-2021 15:09-0400 Body weight 88 kg Antonette Medina [facility]; [facility] Work Phone: 08-07-2021 15:09-0400 Diastolic blood pressure 70 mm[Hg] Antonette Medina [facility]; [facility] Work Phone: Comment on above: Patient Position: Sitting; Cuff Location : Left Arm; Cuff Size: Standard 08-07-2021 15:09-0400 Heart rate 79 /min Antonette Medina [facility]; [facility] Work Phone: Comment on above: Pattern: Regular 08-07-2021 15:09-0400 Respiratory rate 18 /min Antonette Medina [facility]; [facility] Work Phone: Comment on above: Pattern: Unlabored 08-07-2021 15:09-0400 SaO2% (BldA) [Mass fraction] 98 % Antonette Medina [facility]; [facility] Work Phone: Comment on above: Room air 08-07-2021 15:09-0400 Systolic blood pressure 122 mm[Hg] Antonette Medina [facility]; [facility] Work Phone: Comment on above: Patient Position: Sitting; Cuff Location : Left Arm; Cuff Size: Standard 05-24-2021 15:40-0500 Body height 182.88 cm Antonia Patrice DO Work Phone: [facility]; [facility] Work Phone: Comment on above: partial vitals due to virtual wih covid 05-24-2021 15:40-0500 Body mass index (BMI) [Ratio] 14.78 kg/m2 Antonia Patrice DO Work Phone: [facility]; [facility] Work Phone: Comment on above: partial vitals due to virtual wih covid 05-24-2021 15:40-0500 Body surface area Derived from formula 1.65 m2 Antonia Patrice DO Work Phone: [facility]; [facility] Work Phone: Comment on above: partial vitals due to virtual wih covid 05-24-2021 15:40-0500 Body temperature 97.7 [degF] Antonia Patrice DO Work Phone: [facility]; [facility] Work Phone: Comment on above: Method: Oral partial vitals due t o virtual wih covid 05-24-2021 15:40-0500 Body weight 49.44 kg Antonia Patrice DO Work Phone: [facility]; [facility] Work Phone: Comment on above: partial vitals due to virtual wih covid 05-24-2021 15:40-0500 Heart rate 80 /min Antonia Patrice DO Work Phone: [facility]; [facility] Work Phone: Comment on above: Pattern: Regular partial vitals due t o virtual wih covid 05-08-2021 12:14-0500 Body height 182.88 cm Esmer Larsen LPN [facility]; [facility] Work Phone: 05-08-2021 12:14-0500 Body mass index (BMI) [Ratio] 26.45 kg/m2 Esmer Larsen PLUG MACHINE OPERATOR [facility]; [facility] Work Phone: 05-08-2021 12:14-0500 Body surface area Derived from formula 2.11 m2 Esmer Larsen PLUG MACHINE OPERATOR [facility]; [facility] Work Phone: 05-08-2021 12:14-0500 Body temperature 97.9 [degF] Esmer Larsen LPN [facility]; [facility] Work Phone: 05-08-2021 12:14-0500 Body weight 88.45 kg Esmer Larsen PLUG MACHINE OPERATOR [facility]; [facility] Work Phone: 05-08-2021 12:14-0500 Diastolic blood pressure 90 mm[Hg] Esmer Larsen PLUG MACHINE OPERATOR [facility]; [facility] Work Phone: Comment on above: Patient Position: Sitting; Cuff Location : Left Arm; Cuff Size: Standard 05-08-2021 12:14-0500 Heart rate 80 /min Esmer Larsen PLUG MACHINE OPERATOR [facility]; [facility] Work Phone: Comment on above: Pattern: Regular 05-08-2021 12:14-0500 Respiratory rate 16 /min Esmer Larsen LPN [facility]; [facility] Work Phone: Comment on above: Pattern: Unlabored 05-08-2021 12:14-0500 SaO2% (BldA) [Mass fraction] 97 % Esmer Larsen LPN [facility]; [facility] Work Phone: Comment on above: Room air 05-08-2021 12:14-0500 Systolic blood pressure 158 mm[Hg] Esmer Larsen PLUG MACHINE OPERATOR [facility]; [facility] Work Phone: Comment on above: Patient Position: Sitting; Cuff Location : Left Arm; Cuff Size: Standard 01-07-2021 13:14-0400 Body height 182.88 cm Antonette Medina [facility]; [facility] Work Phone: 01-07-2021 13:14-0400 Body mass index (BMI) [Ratio] 25.84 kg/m2 Antonette Medina [facility]; [facility] Work Phone: 01-07-2021 13:14-0400 Body surface area Derived from formula 2.09 m2 Antonette Medina [facility]; [facility] Work Phone: 01-07-2021 13:14-0400 Body temperature 97.2 [degF] Antonette Medina [facility]; [facility] Work Phone: Comment on above: Method: Infrared 01-07-2021 13:14-0400 Body weight 86.41 kg Antonette Medina [facility]; [facility] Work Phone: 01-07-2021 13:14-0400 Diastolic blood pressure 82 mm[Hg] Antonette Medina [facility]; [facility] Work Phone: Comment on above: Patient Position: Sitting; Cuff Location : Left Arm; Cuff Size: Standard 01-07-2021 13:14-0400 Heart rate 82 /min Antonette Medina [facility]; [facility] Work Phone: Comment on above: Pattern: Regular 01-07-2021 13:14-0400 Respiratory rate 16 /min Antonette Medina [facility]; [facility] Work Phone: Comment on above: Pattern: Unlabored 01-07-2021 13:14-0400 SaO2% (BldA) [Mass fraction] 97 % Antonette Medina [facility]; [facility] Work Phone: Comment on above: Room air 01-07-2021 13:14-0400 Systolic blood pressure 123 mm[Hg] Antonette Medina [facility]; [facility] Work Phone: Comment on above: Patient Position: Sitting; Cuff Location : Left Arm; Cuff Size: Standard 09-03-2020 09:36-0400 Body height 182.88 cm Antonette Medina [facility]; [facility] Work Phone: 09-03-2020 09:36-0400 Body mass index (BMI) [Ratio] 25.84 kg/m2 Antonette Medina [facility]; [facility] Work Phone: 09-03-2020 09:36-0400 Body surface area Derived from formula 2.09 m2 Antonette Medina [facility]; [facility] Work Phone: 09-03-2020 09:36-0400 Body temperature 97.3 [degF] Antonette Medina [facility]; [facility] Work Phone: Comment on above: Method: Infrared 09-03-2020 09:36-0400 Body weight 86.41 kg Antonette Medina [facility]; [facility] Work Phone: 09-03-2020 09:36-0400 Diastolic blood pressure 76 mm[Hg] Antonette Medina [facility]; [facility] Work Phone: Comment on above: Patient Position: Sitting; Cuff Location : Left Arm; Cuff Size: Standard 09-03-2020 09:36-0400 Heart rate 76 /min Antonette Medina [facility]; [facility] Work Phone: Comment on above: Pattern: Regular 09-03-2020 09:36-0400 Respiratory rate 18 /min Antonette Medina [facility]; [facility] Work Phone: Comment on above: Pattern: Unlabored 09-03-2020 09:36-0400 SaO2% (BldA) [Mass fraction] 97 % Antonette Medina [facility]; [facility] Work Phone: Comment on above: Room air 09-03-2020 09:36-0400 Systolic blood pressure 120 mm[Hg] Antonette Medina [facility]; [facility] Work Phone: Comment on above: Patient Position: Sitting; Cuff Location : Left Arm; Cuff Size: Standard 05-04-2020 13:36-0500 BMI (Body Mass Index) 25.16 kg/m2 Antoentte Medina [facility]; [facility] Work Phone: 05-04-2020 13:36-0500 Body weight 84.14 kg Antonette Medina CMA [facility]; [facility] Work Phone: 05-04-2020 13:36-0500 BSA (Body Surface Area) 2.06 m2 Antonette Medina CMA [facility]; [facility] Work Phone: 05-04-2020 13:36-0500 Height 182.88 cm Antonette Medina [facility]; [facility] Work Phone: 03-14-2020 12:09-0400 BMI (Body Mass Index) 25.16 kg/m2 Antonette Medina [facility] Work Phone: 03-14-2020 12:09-0400 Body Temperature 97.1 [degF] Antonette Medina [facility] Work Phone: Comment on above: Method: Infrared 03-14-2020 12:09-0400 Body weight 84.14 kg Antonette Medina [facility] Work Phone: 03-14-2020 12:09-0400 BP Diastolic 91 mm[Hg] Antonette Medina [facility] Work Phone: Comment on above: Patient Position: Sitting; Cuff Location : Left Arm; Cuff Size: Standard 03-14-2020 12:09-0400 BP Systolic 148 mm[Hg] Antonette Medina [facility] Work Phone: Comment on above: Patient Position: Sitting; Cuff Location : Left Arm; Cuff Size: Standard 03-14-2020 12:09-0400 BSA (Body Surface Area) 2.06 m2 Antonette Medina [facility] Work Phone: 03-14-2020 12:09-0400 Height 182.88 cm Antonette Medina [facility] Work Phone: 03-14-2020 12:09-0400 Pulse (Heart Rate) 92 /min Antonette Medina [facility] Work Phone: Comment on above: Pattern: Regular 03-14-2020 12:09-0400 Pulse Oximetry 98 % Antonia Jeffers [facility] Work Phone: Comment on above: Room air 03-14-2020 12:09-0400 Respiratory Rate 16 /min Antonette Medina [facility] Work Phone: Comment on above: Pattern: Unlabored 03-14-2020 12:09-0400 SaO2% (BldA) [Mass fraction] 98 % Antonette Medina [facility]; [facility] Work Phone: Comment on above: Room air 02-02-2020 13:31-0400 BMI (Body Mass Index) 24.89 kg/m2 [facility] Comprehen sive Internal Medicine Work Phone: 02-02-2020 13:31-0400 Body Temperature 97.2 [degF] [facility] Work Phone: Comment on above: Method: Thermal Scan 02-02-2020 13:31-0400 Body weight 83.24 kg [facility] Work Phone: 02-02-2020 13:31-0400 BP Diastolic 70 mm[Hg] [facility] Work Phone: Comment on above: Patient Position: Sitting; Cuff Location : Left Arm; Cuff Size: Standard 02-02-2020 13:31-0400 BP Systolic 110 mm[Hg] [facility] Work Phone: Comment on above: Patient Position: Sitting; Cuff Location : Left Arm; Cuff Size: Standard 02-02-2020 13:31-0400 BSA (Body Surface Area) 2.05 m2 [facility] Work Phone: 02-02-2020 13:31-0400 Height 182.88 cm [facility] Work Phone: 02-02-2020 13:31-0400 Pulse (Heart Rate) 77 /min [facility] Comprehensiv e Internal Medicine Work Phone: Comment on above: Pattern: Regular 02-02-2020 13:31-0400 Pulse Oximetry 96 % Antonia Jeffers [facility] Work Phone: Comment on above: Room air 02-02-2020 13:31-0400 Respiratory Rate 16 /min [facility] Work Phone: Comment on above: Pattern: Unlabored 02-02-2020 13:31-0400 SaO2% (BldA) [Mass fraction] 96 % [facility]; [facility] Work Phone: Comment on above: Room air 11-02-2019 12:11-0400 BMI (Body Mass Index) 26.21 kg/m2 Antonette Medina [facility] Internal Medicine Work Phone: 11-02-2019 12:11-0400 Body Temperature 97.5 [degF] Antonette Medina [facility] Work Phone: Comment on above: Method: Temporal 11-02-2019 [id number] Body weight 87.66 kg Antonette Medina [facility] Work Phone: 11-02-2019 12:11-0400 BP Diastolic 64 mm[Hg] Antonette Medina [facility] Work Phone: Comment on above: Patient Position: Sitting; Cuff Location : Left Arm; Cuff Size: Standard 11-02-2019 12:11-0400 BP Systolic 111 mm[Hg] Antonette Medina [facility] Work Phone: Comment on above: Patient Position: Sitting; Cuff Location : Left Arm; Cuff Size: Standard 11-02-2019 12:11-0400 BSA (Body Surface Area) 2.1 m2 Antonette Medina [facility] Work Phone: 11-02-2019 12:11-0400 Height 182.88 cm Antonette Medina [facility] Internal Medicine Work Phone: 11-02-2019 12:11-0400 Pulse (Heart Rate) 79 /min Antonette Medina [facility] Medicine Work Phone: Comment on above: Pattern: Regular 11-02-2019 12:11-0400 Pulse Oximetry 98 % Antonia Jeffers [facility] Work Phone: Comment on above: Room air 11-02-2019 12:11-0400 Respiratory Rate 18 /min Antonette Medina [facility] Work Phone: Comment on above: Pattern: Unlabored 11-02-2019 12:11-0400 SaO2% (BldA) [Mass fraction] 98 % Antonette Medina [facility]; [facility] Work Phone: Comment on above: Room air 04-28-2019 12:58-0500 BMI (Body Mass Index) 26.21 kg/m2 Antonette Medina [facility] Work Phone: 04-28-2019 12:58-0500 Body Temperature 96.6 [degF] Antonette Medina ELECTRICAL ENGINEERING DRAFTING OFFICER [facility] Work Phone: Comment on above: Method: Temporal 04-28-2019 12:58-0500 Body weight 87.66 kg Antonette Medina [facility] Work Phone: 04-28-2019 12:58-0500 BP Diastolic 70 mm[Hg] Antonette Medina [facility] Work Phone: Comment on above: Patient Position: Sitting; Cuff Location : Left Arm; Cuff Size: Standard 04-28-2019 12:58-0500 BP Systolic 130 mm[Hg] Antonette Medina [facility] Work Phone: Comment on above: Patient Position: Sitting; Cuff Location : Left Arm; Cuff Size: Standard 04-28-2019 12:58-0500 BSA (Body Surface Area) 2.1 m2 Antonette Medina [facility] Work Phone: 04-28-2019 12:58-0500 Height 182.88 cm Antonette Medina [facility] Internal Medicine Work Phone: 04-28-2019 12:58-0500 Pulse (Heart Rate) 84 /min Antonette Medina CMA [facility] Internal Medicine Work Phone: Comment on above: Pattern: Regular 04-28-2019 12:58-0500 Pulse Oximetry 97 % Antonia Jeffers [facility] Work Phone: Comment on above: Room air 04-28-2019 12:58-0500 Respiratory Rate 18 /min Antonette Medina CMA [facility] Work Phone: Comment on above: Pattern: Unlabored 04-28-2019 12:58-0500 SaO2% (BldA) [Mass fraction] 97 % Antonette Medina ELECTRICAL ENGINEERING DRAFTING OFFICER [facility]; [facility] Work Phone: Comment on above: Room air 03-31-2019 12:27-0500 Body Temperature 98.01 [degF] [place] 03-31-2019 12:27-0500 BP Diastolic 77 mm[Hg] [place] 03-31-2019 12:27-0500 BP Systolic 142 mm[Hg] [place] 03-31-2019 12:27-0500 Pulse (Heart Rate) 82 /min [place] 03-31-2019 12:27-0500 Pulse Oximetry 100 % [place] 03-31-2019 12:27-0500 Respiratory Rate 18 /min [place] 03-28-2019 21:23-0500 BMI (Body Mass Index) 24.82 kg/m2 [place] 03-28-2019 21:23-0500 Body weight 83.01 kg [place] 03-28-2019 21:23-0500 Height 182.9 cm [place] 12-23-2018 14:11-0400 BMI (Body Mass Index) 26.21 kg/m2 Verna Canchola RN [facility] Work Phone: 12-23-2018 14:11-0400 Body Temperature 97.9 [degF] Verna Canchola RN [facility] Work Phone: Comment on above: Method: Temporal 12-23-2018 14:11-0400 Body weight 87.66 kg Verna Canchola RN [facility] Work Phone: 12-23-2018 14:11-0400 BP Diastolic 78 mm[Hg] Verna Canchola RN [facility] Work Phone: Comment on above: Patient Position: Sitting; Cuff Location : Left Arm; Cuff Size: Large 12-23-2018 14:11-0400 BP Systolic 118 mm[Hg] Verna Canchola RN [facility] Work Phone: Comment on above: Patient Position: Sitting; Cuff Location : Left Arm; Cuff Size: Large 12-23-2018 14:11-0400 BSA (Body Surface Area) 2.1 m2 Verna Canchola RN [facility] Work Phone: 12-23-2018 14:11-0400 Height 182.88 cm Verna Canchola RN [facility] Work Phone: 12-23-2018 14:11-0400 Pulse (Heart Rate) 80 /min Verna Canchola RN [facility] Work Phone: Comment on above: Pattern: Regular 12-23-2018 14:11-0400 Pulse Oximetry 94 % Antonia Patrice [facility] Work Phone: Comment on above: Room air 12-23-2018 14:11-0400 Respiratory Rate 16 /min Verna Canchola RN [facility] Work Phone: Comment on above: Pattern: Unlabored 12-23-2018 14:11-0400 SaO2% (BldA) [Mass fraction] 94 % Verna Canchola RN [facility]; [facility] Work Phone: Comment on above: Room air 08-30-2018 15:03-0400 BMI (Body Mass Index) 26.46 kg/m2 Antonette Medina [facility] Work Phone: 08-30-2018 15:03-0400 Body Temperature 96.9 [degF] Antonette Medina [facility] Work Phone: Comment on above: Method: Axillary 08-30-2018 15:03-0400 Body weight 88.51 kg Antonette Medina [facility] Medicine Work Phone: 08-30-2018 15:03-0400 BP Diastolic 88 mm[Hg] Antonette Medina [employer]LECT[employer] ENGINEERING [employer]FTING OFFICER [facility] Work Phone: Comment on above: Patient Position: Sitting; Cuff Location : Left Arm; Cuff Size: Standard 08-30-2018 15:03-0400 BP Systolic 118 mm[Hg] Antonette Medina [facility] Internal Medicine Work Phone: Comment on above: Patient Position: Sitting; Cuff Location : Left Arm; Cuff Size: Standard 08-30-2018 15:03-0400 BSA (Body Surface Area) 2.11 m2 Antonette Medina [facility] Internal Medicine Work Phone: 08-30-2018 15:03-0400 Height 182.88 cm Antonette Medina [facility] Internal Medicine Work Phone: 08-30-2018 15:03-0400 Pulse (Heart Rate) 76 /min Antonette Medina [facility] Internal Medicine Work Phone: Comment on above: Pattern: Regular 08-30-2018 15:03-0400 Pulse Oximetry 96 % Antonia Jeffers [facility] Internal Medicine Work Phone: Comment on above: Room air 08-30-2018 15:03-0400 Respiratory Rate 16 /min Antonette Medina [facility] Internal Medicine Work Phone: Comment on above: Pattern: Unlabored 08-30-2018 15:03-0400 SaO2% (BldA) [Mass fraction] 96 % Antonette Medina [facility] Internal Medicine; [facility] Work Phone: Comment on above: Room air 08-30-2018 15:03-0400 Weight 88.51 kg Antonia Jeffers [facility] Internal Medicine Work Phone: 05-17-2018 12:59-0500 BMI (Body Mass Index) 25.65 kg/m2 Antonette Medina [facility] Internal Medicine Work Phone: 05-17-2018 12:59-0500 Body Temperature 96.9 [degF] Antonette Medina [facility] Internal Medicine Work Phone: Comment on above: Method: Temporal 05-17-2018 12:59-0500 Body weight 85.79 kg Antonette Medina [facility] Internal Medicine Work Phone: 05-17-2018 12:59-0500 BP Diastolic 80 mm[Hg] Antonette Medina CMA [facility] Work Phone: Comment on above: Patient Position: Sitting; Cuff Location : Left Arm; Cuff Size: Standard 05-17-2018 12:59-0500 BP Systolic 128 mm[Hg] Antonette Medina CMA [facility] Work Phone: Comment on above: Patient Position: Sitting; Cuff Location : Left Arm; Cuff Size: Standard 05-17-2018 12:59-0500 BSA (Body Surface Area) 2.08 m2 Antonette Medina CMA [facility] Internal Medicine Work Phone: 05-17-2018 12:59-0500 Height 182.88 cm Antonette Medina CMA [facility] Internal Medicine Work Phone: 05-17-2018 12:59-0500 Pulse (Heart Rate) 104 /min Antonette Medina CMA [facility] Internal Medicine Work Phone: Comment on above: Pattern: Regular 05-17-2018 12:59-0500 Pulse Oximetry 96 % Antonia Jeffers [facility] Internal Medicine Work Phone: Comment on above: Room air 05-17-2018 12:59-0500 Respiratory Rate 16 /min Antonette Medina CMA [facility] Internal Medicine Work Phone: Comment on above: Pattern: Unlabored 05-17-2018 12:59-0500 SaO2% (BldA) [Mass fraction] 96 % Antonette Medina [facility] Internal Medicine; [facility] Work Phone: Comment on above: Room air 05-17-2018 12:59-0500 Weight 85.79 kg Antonia Jeffers [facility] Internal Medicine Work Phone: 02-12-2018 13:47-0400 BMI (Body Mass Index) 25.65 kg/m2 Antonette Medina [facility] Internal Medicine Work Phone: 02-12-2018 13:47-0400 Body Temperature 96.5 [degF] Antonette Medina CMA [facility] Internal Medicine Work Phone: Comment on above: Method: Temporal 02-12-2018 13:47-0400 Body weight 85.79 kg Antonette Medina [facility] Internal Medicine Work Phone: 02-12-2018 13:47-0400 BP Diastolic 88 mm[Hg] Antonette Medina [facility] Internal Medicine Work Phone: Comment on above: Patient Position: Sitting; Cuff Location : Left Arm; Cuff Size: Standard 02-12-2018 13:47-0400 BP Systolic 124 mm[Hg] Antonette Medina [facility] Internal Medicine Work Phone: Comment on above: Patient Position: Sitting; Cuff Location : Left Arm; Cuff Size: Standard 02-12-2018 13:47-0400 BSA (Body Surface Area) 2.08 m2 Antonette Medina [facility] Internal Medicine Work Phone: 02-12-2018 13:47-0400 Height 182.88 cm Antonette Medina [facility] Internal Medicine Work Phone: 02-12-2018 13:47-0400 Pulse (Heart Rate) 64 /min Antonette Medina [facility] Internal Medicine Work Phone: Comment on above: Pattern: Regular 02-12-2018 13:47-0400 Pulse Oximetry 95 % Antonia Jeffers [facility] Internal Medicine Work Phone: Comment on above: Room air 02-12-2018 13:47-0400 Respiratory Rate 16 /min Antonette Medina [facility] Internal Medicine Work Phone: Comment on above: Pattern: Unlabored 02-12-2018 13:47-0400 SaO2% (BldA) [Mass fraction] 95 % Antonette Medina [facility] Internal Medicine; [facility] Work Phone: Comment on above: Room air 02-12-2018 13:47-0400 Weight 85.79 kg Antonia Jeffers [facility] Internal Medicine Work Phone: 07-17-2017 13:03-0500 BMI (Body Mass Index) 24.97 kg/m2 Verna Canchola RN [facility] Work Phone: 07-17-2017 13:03-0500 Body weight 83.52 kg Verna Canchola RN [facility] Work Phone: 07-17-2017 13:03-0500 BP Diastolic 80 mm[Hg] Verna Canchola RN [facility] Work Phone: Comment on above: Patient Position: Sitting; Cuff Location : Left Arm; Cuff Size: Large 07-17-2017 13:03-0500 BP Systolic 122 mm[Hg] Verna Canchola RN [facility] Work Phone: Comment on above: Patient Position: Sitting; Cuff Location : Left Arm; Cuff Size: Large 07-17-2017 13:03-0500 BSA (Body Surface Area) 2.06 m2 Verna Canchola RN [facility] Work Phone: 07-17-2017 13:03-0500 Height 182.88 cm Verna Canchola RN [facility] Work Phone: 07-17-2017 13:03-0500 Pulse (Heart Rate) 74 /min Vrena Canchola RN [facility] Work Phone: Comment on above: Pattern: Regular 07-17-2017 13:03-0500 Pulse Oximetry 97 % Antonia Jeffers [facility] Work Phone: Comment on above: Room air 07-17-2017 13:03-0500 Respiratory Rate 18 /min Verna Canchola RN [facility] Work Phone: Comment on above: Pattern: Unlabored 07-17-2017 13:03-0500 SaO2% (BldA) [Mass fraction] 97 % Verna Canchola RN [facility]; [facility] Work Phone: Comment on above: Room air 07-17-2017 13:03-0500 Weight 83.52 kg Antoniafrancois Jeffers [facility] Work Phone: 07-10-2017 10:12-0500 BMI (Body Mass Index) 25.79 kg/m2 Verna Canchola RN [facility] Work Phone: 07-10-2017 10:12-0500 Body Temperature 97.5 [degF] Verna Canchola RN [facility] Work Phone: Comment on above: Method: Temporal 07-10-2017 10:12-0500 Body weight 86.24 kg Verna Canchola RN [facility] Work Phone: 07-10-2017 10:12-0500 BP Diastolic 82 mm[Hg] Verna Canchola RN [facility] Work Phone: Comment on above: Patient Position: Sitting; Cuff Location : Left Arm; Cuff Size: Standard 07-10-2017 10:12-0500 BP Systolic 132 mm[Hg] Verna Canchola RN [facility] Work Phone: Comment on above: Patient Position: Sitting; Cuff Location : Left Arm; Cuff Size: Standard 07-10-2017 10:12-0500 BSA (Body Surface Area) 2.09 m2 Verna Canchola RN [facility] Work Phone: 07-10-2017 10:12-0500 Height 182.88 cm Verna Canchola RN [facility] Work Phone: 07-10-2017 10:12-0500 Pulse (Heart Rate) 63 /min Verna Canchola RN [facility] Work Phone: Comment on above: Pattern: Regular 07-10-2017 10:12-0500 Pulse Oximetry 95 % Antonia Jeffers [facility] Work Phone: Comment on above: Room air 07-10-2017 10:12-0500 Respiratory Rate 18 /min Verna Canchola RN [facility] Work Phone: Comment on above: Pattern: Unlabored 07-10-2017 10:12-0500 SaO2% (BldA) [Mass fraction] 95 % Verna Canchola RN [facility]; [facility] Work Phone: Comment on above: Room air 07-10-2017 10:12-0500 Weight 86.24 kg Antonia Jeffers [facility] Work Phone: 04-17-2017 13:01-0500 BMI (Body Mass Index) 25.79 kg/m2 Verna Canchola RN [facility] Work Phone: 04-17-2017 13:01-0500 Body weight 86.24 kg Verna Canchola RN [facility] Work Phone: 04-17-2017 13:01-0500 BP Diastolic 80 mm[Hg] Verna Canchola RN [facility] Work Phone: Comment on above: Patient Position: Sitting; Cuff Location : Left Arm; Cuff Size: Large 04-17-2017 13:01-0500 BP Systolic 122 mm[Hg] Verna Canchola RN [facility] Work Phone: Comment on above: Patient Position: Sitting; Cuff Location : Left Arm; Cuff Size: Large 04-17-2017 13:01-0500 BSA (Body Surface Area) 2.09 m2 Verna Canchola RN [facility] Work Phone: 04-17-2017 13:01-0500 Height 182.88 cm Verna Canchola RN [facility] Work Phone: 04-17-2017 13:01-0500 Pulse (Heart Rate) 72 /min Verna Canchola RN [facility] Work Phone: Comment on above: Pattern: Regular 04-17-2017 13:01-0500 Pulse Oximetry 97 % Antonia Jeffers [facility] Work Phone: Comment on above: Room air 04-17-2017 13:01-0500 Respiratory Rate 18 /min Verna Canchola RN [facility] Work Phone: Comment on above: Pattern: Unlabored 04-17-2017 13:01-0500 SaO2% (BldA) [Mass fraction] 97 % Verna Canchola RN [facility]; [facility] Work Phone: Comment on above: Room air 04-17-2017 13:01-0500 Weight 86.24 kg Antonia Jeffers [facility] Work Phone: 03-27-2017 10:41-0500 BMI (Body Mass Index) 25.63 kg/m2 Verna Canchola RN [facility] Work Phone: 03-27-2017 10:41-0500 Body weight 85.73 kg Verna Canchola RN [facility] Work Phone: 03-27-2017 10:41-0500 BP Diastolic 78 mm[Hg] Verna Canchola RN [facility] Work Phone: Comment on above: Patient Position: Sitting; Cuff Location : Left Arm; Cuff Size: Standard 03-27-2017 10:41-0500 BP Systolic 120 mm[Hg] Verna Canchola RN [facility] Work Phone: Comment on above: Patient Position: Sitting; Cuff Location : Left Arm; Cuff Size: Standard 03-27-2017 10:41-0500 BSA (Body Surface Area) 2.08 m2 Verna Canchola RN [facility] Work Phone: 03-27-2017 10:41-0500 Height 182.88 cm Verna Canchola RN [facility] Work Phone: 03-27-2017 10:41-0500 Pulse (Heart Rate) 74 /min Verna Canchola RN [facility] Work Phone: Comment on above: Pattern: Regular 03-27-2017 10:41-0500 Pulse Oximetry 95 % Antonia Cuevason [facility] Work Phone: Comment on above: Room air 03-27-2017 10:41-0500 Respiratory Rate 18 /min Verna Canchola RN [facility] Work Phone: Comment on above: Pattern: Unlabored 03-27-2017 10:41-0500 SaO2% (BldA) [Mass fraction] 95 % Verna Canchola RN [facility]; [facility] Work Phone: Comment on above: Room air 03-27-2017 10:41-0500 Weight 85.73 kg Antonia Cuevason [facility] Work Phone: 10-09-2016 08:09-0400 BMI (Body Mass Index) 26.38 kg/m2 Verna Canchola RN [facility] Work Phone: 10-09-2016 08:09-0400 Body Temperature 96.8 [degF] Verna Canchola RN [facility] Work Phone: Comment on above: Method: Temporal 10-09-2016 08:09-0400 Body weight 88.23 kg Verna Canchola RN [facility] Work Phone: 10-09-2016 08:09-0400 BP Diastolic 66 mm[Hg] Verna Canchola RN [facility] Work Phone: Comment on above: Patient Position: Sitting; Cuff Location : Left Arm; Cuff Size: Large 10-09-2016 08:09-0400 BP Systolic 120 mm[Hg] Verna Canchola RN [facility] Work Phone: Comment on above: Patient Position: Sitting; Cuff Location : Left Arm; Cuff Size: Large 10-09-2016 08:09-0400 BSA (Body Surface Area) 2.11 m2 Verna Canchola RN [facility] Work Phone: 10-09-2016 08:09-0400 Height 182.88 cm Verna Canchola RN [facility] Work Phone: 10-09-2016 08:09-0400 Pulse (Heart Rate) 79 /min Venra Canchola RN [facility] Work Phone: Comment on above: Pattern: Regular 10-09-2016 08:09-0400 Pulse Oximetry 96 % Antonia Jeffers [facility] Internal Medicine Work Phone: Comment on above: Room air 10-09-2016 08:09-0400 Respiratory Rate 18 /min Verna Canchola RN [facility] Work Phone: Comment on above: Pattern: Unlabored 10-09-2016 08:09-0400 SaO2% (BldA) [Mass fraction] 96 % Verna Canchola RN [facility]; [facility] Work Phone: Comment on above: Room air 10-09-2016 08:09-0400 Weight 88.23 kg Antonia Jeffers [facility] Internal Medicine Work Phone: 06-11-2016 14:00-0500 BMI (Body Mass Index) 25.9 kg/m2 Alexa Kevinnette [facility] Medicine Work Phone: 06-11-2016 14:00-0500 Body weight 86.64 kg Alexa Nicole [facility] Internal Medicine Work Phone: 06-11-2016 14:00-0500 BP Diastolic 70 mm[Hg] Alexa Kevinnette [facility] Internal Medicine Work Phone: Comment on above: Patient Position: Sitting; Cuff Location : Left Arm; Cuff Size: Standard 06-11-2016 14:00-0500 BP Systolic 126 mm[Hg] Alexa Rivera [facility] Internal Medicine Work Phone: Comment on above: Patient Position: Sitting; Cuff Location : Left Arm; Cuff Size: Standard 06-11-2016 14:00-0500 BSA (Body Surface Area) 2.09 m2 Alexa Rivera [facility] Internal Medicine Work Phone: 06-11-2016 14:00-0500 Height 182.88 cm Alexa Rivera [facility] Internal Medicine Work Phone: 06-11-2016 14:00-0500 Pulse (Heart Rate) 71 /min Alexa Rivera [facility] Internal Medicine Work Phone: Comment on above: Pattern: Regular 06-11-2016 14:00-0500 Pulse Oximetry 96 % Antonia Jeffers [facility] Internal Medicine Work Phone: Comment on above: Room air 06-11-2016 14:00-0500 Respiratory Rate 16 /min Alexa Rivera [facility] Internal Medicine Work Phone: Comment on above: Pattern: Unlabored 06-11-2016 14:00-0500 SaO2% (BldA) [Mass fraction] 96 % Alexa Rivera [facility] Internal Medicine; [facility] Work Phone: Comment on above: Room air 06-11-2016 14:00-0500 Weight 86.64 kg Antonia Jeffers [facility] Internal Medicine Work Phone: 04-22-2016 09:54-0500 BMI (Body Mass Index) 25.23 kg/m2 Telma Slarb PLUG MACHINE OPERATOR [facility] Internal Medicine Work Phone: 04-22-2016 09:54-0500 Body Temperature 98.8 [degF] Telma Slarb PLUG MACHINE OPERATOR [facility] Internal Medicine Work Phone: 04-22-2016 09:54-0500 Body weight 84.37 kg Telma Slarb PLUG MACHINE OPERATOR [facility] Internal Medicine Work Phone: 04-22-2016 09:54-0500 BP Diastolic 82 mm[Hg] Telma Slarb [facility] Internal Medicine Work Phone: Comment on above: Patient Position: Sitting; Cuff Location : Left Arm; Cuff Size: Standard 04-22-2016 09:54-0500 BP Systolic 142 mm[Hg] Telma Lafleur PLUG MACHINE OPERATOR [facility] Work Phone: Comment on above: Patient Position: Sitting; Cuff Location : Left Arm; Cuff Size: Standard 04-22-2016 09:54-0500 BSA (Body Surface Area) 2.07 m2 Telma Lafleur PLUG MACHINE OPERATOR [facility] Work Phone: 04-22-2016 09:54-0500 Height 182.88 cm Telma Miquel PLUG MACHINE OPERATOR [facility] Work Phone: 04-22-2016 09:54-0500 Pulse (Heart Rate) 77 /min Telma Lafleur LPN [facility] Internal Medicine Work Phone: Comment on above: Pattern: Regular 04-22-2016 09:54-0500 Pulse Oximetry 97 % Antonia Patrice [facility] Work Phone: Comment on above: Room air 04-22-2016 09:54-0500 Respiratory Rate 17 /min Telma Marcorb PLUG MACHINE OPERATOR [facility] Work Phone: Comment on above: Pattern: Unlabored 04-22-2016 09:54-0500 SaO2% (BldA) [Mass fraction] 97 % Telma Marcorb PLUG MACHINE OPERATOR [facility]; [facility] Work Phone: Comment on above: Room air 04-22-2016 09:54-0500 Weight 84.37 kg Antonia Patrice [facility] Work Phone: 03-10-2016 11:27-0400 BMI (Body Mass Index) 24.82 kg/m2 Verna Canchola RN [facility] Work Phone: 03-10-2016 11:27-0400 Body weight 83.01 kg Verna Canchola RN [facility] Work Phone: 03-10-2016 11:27-0400 BP Diastolic 60 mm[Hg] Verna Canchola RN [facility] Work Phone: Comment on above: Patient Position: Sitting; Cuff Location : Left Arm; Cuff Size: Standard 03-10-2016 11:27-0400 BP Systolic 118 mm[Hg] Verna Canchola RN [facility] Work Phone: Comment on above: Patient Position: Sitting; Cuff Location : Left Arm; Cuff Size: Standard 03-10-2016 11:27-0400 BSA (Body Surface Area) 2.05 m2 Verna Canchola RN [facility] Work Phone: 03-10-2016 11:27-0400 Height 182.88 cm Verna Canchola RN [facility] Work Phone: 03-10-2016 11:27-0400 Pulse (Heart Rate) 84 /min Verna Canchola RN [facility] Work Phone: Comment on above: Pattern: Regular 03-10-2016 11:27-0400 Pulse Oximetry 97 % Antonia Jeffers [facility] Internal Medicine Work Phone: Comment on above: Room air 03-10-2016 11:27-0400 Respiratory Rate 18 /min Verna Canchola RN [facility] Work Phone: Comment on above: Pattern: Unlabored 03-10-2016 11:27-0400 SaO2% (BldA) [Mass fraction] 97 % Verna Canchola RN [facility]; [facility] Work Phone: Comment on above: Room air 03-10-2016 11:27-0400 Weight 83.01 kg Antonia Jeffers [facility] Internal Medicine Work Phone: 07-16-2015 13:55-0500 BMI (Body Mass Index) 23.67 kg/m2 [facility]ke [facility] Internal Medicine Work Phone: 07-16-2015 13:55-0500 Body Temperature 97 [degF] Silke Chavez [facility] Internal Medicine Work Phone: 07-16-2015 13:55-0500 Body weight 79.15 kg Silke Chavez [facility] Internal Medicine Work Phone: 07-16-2015 13:55-0500 BP Diastolic 62 mm[Hg] Silke Chavez [facility] Internal Medicine Work Phone: Comment on above: Patient Position: Sitting; Cuff Location : Left Arm; Cuff Size: Standard 07-16-2015 13:55-0500 BP Systolic 122 mm[Hg] Silke Chavez [facility] Internal Medicine Work Phone: Comment on above: Patient Position: Sitting; Cuff Location : Left Arm; Cuff Size: Standard 07-16-2015 13:55-0500 BSA (Body Surface Area) 2.01 m2 Silke Chavez [facility] Internal Medicine Work Phone: 07-16-2015 13:55-0500 Height 182.88 cm Silke Chavez [facility] Internal Medicine Work Phone: 07-16-2015 13:55-0500 Pulse (Heart Rate) 86 /min Silke Chavez [facility] Internal Medicine Work Phone: Comment on above: Pattern: Regular 07-16-2015 13:55-0500 Pulse Oximetry 98 % Antonia Jeffers [facility] Internal Medicine Work Phone: Comment on above: Room air 07-16-2015 13:55-0500 Respiratory Rate 18 /min Silke Chavez [facility] Internal Medicine Work Phone: Comment on above: Pattern: Unlabored 07-16-2015 13:55-0500 SaO2% (BldA) [Mass fraction] 98 % Silke Chavez [facility] Internal Medicine; [facility] Work Phone: Comment on above: Room air 07-16-2015 13:55-0500 Weight 79.15 kg Antonia Jeffers [facility] Internal Medicine Work Phone: 05-30-2015 08:51-0500 BMI (Body Mass Index) 23.94 kg/m2 Telma Lafleur PLUG MACHINE OPERATOR [facility] Internal Medicine Work Phone: 05-30-2015 08:51-0500 Body Temperature 97.8 [degF] Telma Lafleur LPN [facility] Internal Medicine Work Phone: 05-30-2015 08:51-0500 Body weight 80.06 kg Telma Lafleur LPN [facility] Internal Medicine Work Phone: 05-30-2015 08:51-0500 BP Diastolic 72 mm[Hg] Telma Lafleur LPN [facility] Work Phone: Comment on above: Patient Position: Sitting; Cuff Location : Left Arm; Cuff Size: Standard 05-30-2015 08:51-0500 BP Systolic 116 mm[Hg] Telma Miquel ANDINON [facility] Work Phone: Comment on above: Patient Position: Sitting; Cuff Location : Left Arm; Cuff Size: Standard 05-30-2015 08:51-0500 BSA (Body Surface Area) 2.02 m2 Telma Lafleur LPN [facility] Work Phone: 05-30-2015 08:51-0500 Height 182.88 cm Telma Lafleur LPN [facility] Work Phone: 05-30-2015 08:51-0500 Pulse (Heart Rate) 66 /min Telma Lafleur LPN [facility] Internal Medicine Work Phone: Comment on above: Pattern: Regular 05-30-2015 08:51-0500 Pulse Oximetry 98 % Antonia Jeffers [facility] Work Phone: Comment on above: Room air 05-30-2015 08:51-0500 Respiratory Rate 16 /min Telma Lafleur LPN [facility] Work Phone: Comment on above: Pattern: Unlabored 05-30-2015 08:51-0500 SaO2% (BldA) [Mass fraction] 98 % Telmacorona Lafleur PLUG MACHINE OPERATOR [facility]; [facility] Work Phone: Comment on above: Room air 05-30-2015 08:51-0500 Weight 80.06 kg Antonia Cuevason [facility] Internal Medicine Work Phone: 12-26-2014 10:04-0400 BMI (Body Mass Index) 23.79 kg/m2 Jennifer Pina RN [facility] Internal Medicine Work Phone: 12-26-2014 10:04-0400 Body Temperature 97.3 [degF] Jennifer Pina RN [facility] Work Phone: Comment on above: Method: Temporal 12-26-2014 10:04-0400 Body weight 79.56 kg Jennifer Pina RN [facility] Work Phone: 12-26-2014 10:04-0400 BP Diastolic 68 mm[Hg] Jennifer Pina RN [facility] Work Phone: Comment on above: Patient Position: Sitting; Cuff Location : Left Arm; Cuff Size: Standard 12-26-2014 10:04-0400 BP Systolic 124 mm[Hg] Jennifer Pina RN [facility] Work Phone: Comment on above: Patient Position: Sitting; Cuff Location : Left Arm; Cuff Size: Standard 12-26-2014 10:04-0400 BSA (Body Surface Area) 2.01 m2 Jennifer Pina RN [facility] Work Phone: 12-26-2014 10:04-0400 Height 182.88 cm Jennifer Pina RN [facility] Work Phone: 12-26-2014 10:04-0400 Pulse (Heart Rate) 65 /min Jennifer Pina RN [facility] Work Phone: Comment on above: Pattern: Regular 12-26-2014 10:04-0400 Pulse Oximetry 90 % Antonia Patrice [facility] Work Phone: Comment on above: Room air 12-26-2014 10:04-0400 Respiratory Rate 16 /min Jennifer Pina RN [facility] Work Phone: Comment on above: Pattern: Unlabored 12-26-2014 10:04-0400 SaO2% (BldA) [Mass fraction] 90 % Jennifer Pina RN [facility]; [facility] Work Phone: Comment on above: Room air 12-26-2014 10:04-0400 Weight 79.56 kg Antonia Patrice [facility] Internal Medicine Work Phone: 08-29-2014 10:42-0400 BMI (Body Mass Index) 23.79 kg/m2 Jennifer Pina RN [facility] Internal Medicine Work Phone: 08-29-2014 10:42-0400 Body Temperature 96.9 [degF] Jennifer Pina RN [facility] Work Phone: 08-29-2014 10:42-0400 Body weight 79.56 kg Jennifer Pina RN [facility] Work Phone: 08-29-2014 10:42-0400 BP Diastolic 78 mm[Hg] Jennifer Pina RN [facility] Work Phone: Comment on above: Patient Position: Sitting; Cuff Location : Left Arm; Cuff Size: Standard 08-29-2014 10:42-0400 BP Systolic 126 mm[Hg] Jennifer Pina RN [facility] Work Phone: Comment on above: Patient Position: Sitting; Cuff Location : Left Arm; Cuff Size: Standard 08-29-2014 10:42-0400 BSA (Body Surface Area) 2.01 m2 Jennifer Pina RN [facility] Work Phone: 08-29-2014 10:42-0400 Height 182.88 cm Jennifer Pina RN [facility] Work Phone: 08-29-2014 10:42-0400 Pulse (Heart Rate) 78 /min Jennifer Pina RN [facility] Work Phone: Comment on above: Pattern: Regular 08-29-2014 10:42-0400 Pulse Oximetry 97 % Antonia Patrice [facility] Work Phone: Comment on above: Room air 08-29-2014 10:42-0400 Respiratory Rate 17 /min Jennifer Pina RN [facility] Work Phone: Comment on above: Pattern: Unlabored 08-29-2014 10:42-0400 SaO2% (BldA) [Mass fraction] 97 % Jennifer Pina RN [facility]; [facility] Work Phone: Comment on above: Room air 08-29-2014 10:42-0400 Weight 79.56 kg Antonia Cuevason [facility] Work Phone: 06-08-2014 10:52-0500 Body weight 78.7 kg Telma Lafleur LPN [facility] Work Phone: 06-08-2014 10:52-0500 Weight 78.7 kg Antonia Jeffers [facility] Work Phone: 05-15-2014 14:23-0500 BMI (Body Mass Index) 23.73 kg/m2 [facility] Work Phone: 05-15-2014 14:23-0500 Body Temperature 97.9 [degF] Antonia Jeffers [facility] Work Phone: Comment on above: Method: Oral 05-15-2014 14:23-0500 Body weight 79.38 kg Antonia Jeffers [facility] Work Phone: 05-15-2014 14:23-0500 BP Diastolic 80 mm[Hg] Antonia Jeffers [facility] Work Phone: Comment on above: Patient Position: Sitting; Cuff Location : Left Arm; Cuff Size: Standard 05-15-2014 14:23-0500 BP Systolic 128 mm[Hg] Antonia Jeffers [facility] Work Phone: Comment on above: Patient Position: Sitting; Cuff Location : Left Arm; Cuff Size: Standard 05-15-2014 14:23-0500 BSA (Body Surface Area) 2.01 m2 Antonia Jeffers [facility] Work Phone: 05-15-2014 14:23-0500 Height 182.88 cm Antonia Jeffers [facility] Work Phone: 05-15-2014 14:23-0500 Pulse (Heart Rate) 72 /min Antonia Jeffers [facility] Work Phone: Comment on above: Pattern: Regular 05-15-2014 14:23-0500 Pulse Oximetry 97 % Antonia Jeffers [facility] Work Phone: Comment on above: Room air 05-15-2014 14:23-0500 Respiratory Rate 16 /min Antonia Jeffers [facility] Work Phone: 05-15-2014 14:23-0500 SaO2% (BldA) [Mass fraction] 97 % Antonia Jeffers DO Work Phone: [facility]; [facility] Work Phone: Comment on above: Room air 05-15-2014 14:23-0500 Weight 79.38 kg Antonia Jeffers [facility] Work Phone: 04-27-2014 11:18-0500 BMI (Body Mass Index) 23.73 kg/m2 Jennifer Pina RN [facility] Work Phone: 04-27-2014 11:18-0500 Body Temperature 97.9 [degF] Jennifer Pina RN [facility] Work Phone: Comment on above: Method: Temporal 04-27-2014 11:18-0500 Body weight 79.38 kg Jennifer Pina RN [facility] Work Phone: 04-27-2014 11:18-0500 BP Diastolic 74 mm[Hg] Jennifer Pina RN [facility] Work Phone: Comment on above: Patient Position: Sitting; Cuff Location : Left Arm; Cuff Size: Standard 04-27-2014 11:18-0500 BP Systolic 130 mm[Hg] Jennifer Pina RN [facility] Work Phone: Comment on above: Patient Position: Sitting; Cuff Location : Left Arm; Cuff Size: Standard 04-27-2014 11:18-0500 BSA (Body Surface Area) 2.01 m2 Jennifer Pina RN [facility] Work Phone: 04-27-2014 11:18-0500 Height 182.88 cm Jennifer Pina RN [facility] Work Phone: 04-27-2014 11:18-0500 Pulse (Heart Rate) 72 /min Jennifer Pina RN [facility] Work Phone: Comment on above: Pattern: Regular 04-27-2014 11:18-0500 Respiratory Rate 17 /min Jennifer Pina RN [facility] Work Phone: Comment on above: Pattern: Unlabored 04-27-2014 11:18-0500 Weight 79.38 kg Antonia Jeffers [facility] Work Phone: 12-09-2013 11:13-0400 BMI (Body Mass Index) 25.63 kg/m2 LIUDMILA Moreno LPN [facility] Medicine Work Phone: 12-09-2013 11:13-0400 Body Temperature 97.6 [degF] LIUDMILA Moreno LPN [facility] Work Phone: Comment on above: Method: Oral 12-09-2013 11:130400 Body weight 85.73 kg LIUDMILA Moreno LPN [facility] Work Phone: 12-09-2013 11:13-0400 BP Diastolic 78 mm[Hg] LIUDMILA Moreno LPN [facility] Work Phone: Comment on above: Patient Position: Sitting; Cuff Location : Left Arm; Cuff Size: Standard 12-09-2013 11:130400 BP Systolic 138 mm[Hg] LIUDMILA Moreno LPN [facility] Work Phone: Comment on above: Patient Position: Sitting; Cuff Location : Left Arm; Cuff Size: Standard 12-09-2013 11:13-0400 BSA (Body Surface Area) 2.08 m2 LIUDMILA Mroeno LPN [facility] Work Phone: 12-09-2013 11:130400 Height 182.88 cm LIUDMILA Moreno LPN [facility] Work Phone: 12-09-2013 11:13-0400 Pulse (Heart Rate) 74 /min LIUDMILA Moreno LPN [facility] Work Phone: Comment on above: Pattern: Regular 12-09-2013 11:13-0400 Respiratory Rate 20 /min LIUDMILA Moreno LPN [facility] Work Phone: Comment on above: Pattern: Unlabored 12-09-2013 11:13-0400 Weight 85.73 kg Antonia Jeffers [facility] Work Phone: 08-05-2013 11:11-0400 BMI (Body Mass Index) 26.72 kg/m2 LIUDMILA Moreno LPN [facility] Work Phone: 08-05-2013 11:11-0400 Body Temperature 97.9 [degF] LIUDMILA Moreno LPN [facility] Work Phone: Comment on above: Method: Oral 08-05-2013 11:110400 Body weight 89.36 kg LIUDMILA Moreno LPN [facility] Work Phone: 08-05-2013 11:11-0400 BP Diastolic 78 mm[Hg] LIUDMILA Moreno LPN [facility] Work Phone: Comment on above: Patient Position: Sitting; Cuff Location : Left Arm; Cuff Size: Standard 08-05-2013 11:110400 BP Systolic 112 mm[Hg] LIUDMILA Moreno LPN [facility] Work Phone: Comment on above: Patient Position: Sitting; Cuff Location : Left Arm; Cuff Size: Standard 08-05-2013 11:110400 BSA (Body Surface Area) 2.12 m2 LIUDMILA Moreno LPN [facility] Work Phone: 08-05-2013 11:110400 Height 182.88 cm LIUDMILA Moreno [facility] Work Phone: 08-05-2013 11:11-0400 Pulse (Heart Rate) 70 /min LIUDMILA Moreno [facility] Work Phone: Comment on above: Pattern: Regular 08-05-2013 11:11-0400 Respiratory Rate 18 /min LIUDMILA Moreno LPN [facility] Work Phone: Comment on above: Pattern: Unlabored 08-05-2013 11:11-0400 Weight 89.36 kg Antonia Jeffers [facility] Work Phone: 06-10-2013 09:06-0500 BMI (Body Mass Index) 28.07 kg/m2 LIUDMILA Moreno PLUG MACHINE OPERATOR [facility] Medicine Work Phone: 06-10-2013 09:06-0500 Body Temperature 97.6 [degF] LIUDMILA Moreno LPN [facility] Work Phone: Comment on above: Method: Oral 06-10-2013 09:06-0500 Body weight 93.9 kg LIUDMILA Moreno [facility] Work Phone: 06-10-2013 09:06-0500 BP Diastolic 84 mm[Hg] LIUDMILA Moreno LPN [facility] Work Phone: Comment on above: Patient Position: Sitting; Cuff Location : Left Arm; Cuff Size: Standard 06-10-2013 09:06-0500 BP Systolic 142 mm[Hg] LIUDMILA Moreno LPN [facility] Work Phone: Comment on above: Patient Position: Sitting; Cuff Location : Left Arm; Cuff Size: Standard 06-10-2013 09:06-0500 BSA (Body Surface Area) 2.16 m2 LIUDMILA Moreno LPN [facility] Work Phone: 06-10-2013 09:06-0500 Height 182.88 cm LIUDMILA Moreno PLUG MACHINE OPERATOR [facility] Medicine Work Phone: 06-10-2013 09:06-0500 Pulse (Heart Rate) 74 /min LIUDMILA Moreno [facility] Work Phone: Comment on above: Pattern: Regular 06-10-2013 09:06-0500 Respiratory Rate 18 /min LIUDMILA Moreno [facility] Work Phone: Comment on above: Pattern: Unlabored 06-10-2013 09:06-0500 Weight 93.9 kg Antonia Jeffers [facility] Work Phone: 04-08-2013 11:12-0500 BMI (Body Mass Index) 28.07 kg/m2 LIUDMILA Moreno [facility] Work Phone: 04-08-2013 11:12-0500 Body Temperature 97.6 [degF] LIUDMILA Moreno [facility] Work Phone: Comment on above: Method: Oral 04-08-2013 11:12-0500 Body weight 93.9 kg LIUDMILA Moreno PLUG MACHINE OPERATOR [facility] Work Phone: 04-08-2013 11:12-0500 BP Diastolic 80 mm[Hg] LIUDMILA Moreno PLUG MACHINE OPERATOR [facility] Work Phone: Comment on above: Patient Position: Sitting; Cuff Location : Left Arm; Cuff Size: Standard 04-08-2013 11:12-0500 BP Systolic 122 mm[Hg] LIUDMILA Moreno [facility] Work Phone: Comment on above: Patient Position: Sitting; Cuff Location : Left Arm; Cuff Size: Standard 04-08-2013 11:12-0500 BSA (Body Surface Area) 2.16 m2 LIUDMILA Moreno [facility] Work Phone: 04-08-2013 11:12-0500 Height 182.88 cm LIUDMILA Moreno [facility] Work Phone: 04-08-2013 11:12-0500 Pulse (Heart Rate) 70 /min LIUDMILA Moreno [facility] Work Phone: Comment on above: Pattern: Regular 04-08-2013 11:12-0500 Respiratory Rate 20 /min LIUDMILA Moreno [facility] Work Phone: Comment on above: Pattern: Unlabored 04-08-2013 11:12-0500 Weight 93.9 kg Antonia Jeffers [facility] Work Phone: 01-07-2013 09:32-0400 BMI (Body Mass Index) 30.24 kg/m2 LIUDMILA Moreno [facility] Work Phone: Comment on above: patient was rushing around 01-07-2013 09:32-0400 Body Temperature 97.6 [degF] LIUDMILA Moreno [facility] Work Phone: Comment on above: Method: Oral patient was rushing around 01-07-2013 09:32-0400 Body weight 101.15 kg LIUDMILA Moreno [facility] Work Phone: Comment on above: patient was rushing around 01-07-2013 09:32-0400 BP Diastolic 86 mm[Hg] LIUDMILA Moreno [facility] Work Phone: Comment on above: Patient Position: Sitting; Cuff Location : Left Arm; Cuff Size: Standard patient was rushing around 01-07-2013 09:32-0400 BP Systolic 160 mm[Hg] LIUDMILA Moreno [facility] Work Phone: Comment on above: Patient Position: Sitting; Cuff Location : Left Arm; Cuff Size: Standard patient was rushing around 01-07-2013 09:32-0400 BSA (Body Surface Area) 2.23 m2 LIUDMILA Moreno [facility] Work Phone: Comment on above: patient was rushing around 01-07-2013 09:32-0400 Height 182.88 cm LIUDMILA Moreno [facility] Work Phone: Comment on above: patient was rushing around 01-07-2013 09:32-0400 Pulse (Heart Rate) 70 /min LIUDMILA Moreno [facility] Work Phone: Comment on above: Pattern: Regular patient was rushing around 01-07-2013 09:32-0400 Respiratory Rate 18 /min LIUDMILA Moreno [facility] Work Phone: Comment on above: Pattern: Unlabored patient was rushing around 01-07-2013 09:32-0400 Weight 101.15 kg Antoniaamrita Jeffers [facility] Work Phone: Comment on above: patient was rushing around 10-08-2012 09:50-0400 BMI (Body Mass Index) 30.79 kg/m2 LIUDMILA Moreno [facility] Work Phone: 10-08-2012 09:50-0400 Body Temperature 97.6 [degF] LIUDMILA Moreno [facility] Work Phone: Comment on above: Method: Oral 10-08-2012 09:50-0400 Body weight 102.97 kg LIUDMILA Moreno [facility] Work Phone: 10-08-2012 09:50-0400 BP Diastolic 70 mm[Hg] LIUDMILA Moreno [facility] Work Phone: Comment on above: Patient Position: Sitting; Cuff Location : Left Arm; Cuff Size: Standard 10-08-2012 09:50-0400 BP Systolic 140 mm[Hg] LIUDMILA Moreno [facility] Work Phone: Comment on above: Patient Position: Sitting; Cuff Location : Left Arm; Cuff Size: Standard 10-08-2012 09:50-0400 BSA (Body Surface Area) 2.25 m2 LIUDMILA Moreno LPN [facility] Work Phone: 10-08-2012 09:50-0400 Height 182.88 cm LIUDMILA Moreno LPN [facility] Work Phone: 10-08-2012 09:50-0400 Pulse (Heart Rate) 68 /min LIUDMILA Moreno LPN [facility] Work Phone: Comment on above: Pattern: Regular 10-08-2012 09:50-0400 Respiratory Rate 18 /min LIUDMILA Moreno LPN [facility] Work Phone: Comment on above: Pattern: Unlabored 10-08-2012 09:50-0400 Weight 102.97 kg Antonia Jeffers [facility] Work Phone: 10-20-2011 13:38-0400 BMI (Body Mass Index) 29.84 kg/m2 LIUDMILA Moreno LPN [facility] Work Phone: 10-20-2011 13:38-0400 Body Temperature 98 [degF] LIUDMILA Moreno LPN [facility] Work Phone: Comment on above: Method: Oral 10-20-2011 13:38-0400 Body weight 99.81 kg LIUDMILA Moreno LPN [facility] Work Phone: 10-20-2011 13:38-0400 BP Diastolic 80 mm[Hg] LIUDMILA Moreno PLUG MACHINE OPERATOR [facility] Work Phone: Comment on above: Patient Position: Sitting; Cuff Location : Left Arm; Cuff Size: Standard 10-20-2011 13:38-0400 BP Systolic 138 mm[Hg] LIUDMILA Moreno LPN [facility] Work Phone: Comment on above: Patient Position: Sitting; Cuff Location : Left Arm; Cuff Size: Standard 10-20-2011 13:38-0400 BSA (Body Surface Area) 2.22 m2 LIUDMILA Moreno LPN [facility] Work Phone: 10-20-2011 13:38-0400 Height 182.88 cm LIUDMILA Moreno LPN [facility] Work Phone: 10-20-2011 13:38-0400 Pulse (Heart Rate) 70 /min LIUDMILA Moreno LPN [facility] Work Phone: Comment on above: Pattern: Regular 10-20-2011 13:38-0400 Respiratory Rate 18 /min LIUDMILA Moreno LPN [facility] Work Phone: Comment on above: Pattern: Unlabored 10-20-2011 13:38-0400 Weight 99.81 kg Antonia Jeffers [facility] Work Phone: 06-05-2011 12:49-0500 BMI (Body Mass Index) 28.75 kg/m2 LIUDMILA Moreno LPN [facility] Work Phone: 06-05-2011 12:49-0500 Body Temperature 97.9 [degF] LIUDMILA Moreno LPN [facility] Work Phone: Comment on above: Method: Oral 06-05-2011 12:49-0500 Body weight 96.16 kg LIUDMILA Moreno LPN [facility] Work Phone: 06-05-2011 12:49-0500 BP Diastolic 80 mm[Hg] LIUDMILA Moreno LPN [facility] Work Phone: Comment on above: Patient Position: Sitting; Cuff Location : Left Arm; Cuff Size: Standard 06-05-2011 12:49-0500 BP Systolic 124 mm[Hg] LIUDMILA Moreno LPN [facility] Work Phone: Comment on above: Patient Position: Sitting; Cuff Location : Left Arm; Cuff Size: Standard 06-05-2011 12:49-0500 BSA (Body Surface Area) 2.18 m2 LIUDMILA Moreno LPN [facility] Work Phone: 06-05-2011 12:49-0500 Height 182.88 cm LIUDMILA Moreno LPN [facility] Work Phone: 06-05-2011 12:49-0500 Pulse (Heart Rate) 70 /min LIUDMILA Moreno LPN [facility] Work Phone: Comment on above: Pattern: Regular 06-05-2011 12:49-0500 Respiratory Rate 18 /min LIUDMILA Moreno LPN [facility] Work Phone: Comment on above: Pattern: Unlabored 06-05-2011 12:49-0500 Weight 96.16 kg Antonia Jeffers [facility] Work Phone: 05-20-2011 15:35-0500 BMI (Body Mass Index) 28.75 kg/m2 Laureano Riding [facility] Work Phone: 05-20-2011 15:35-0500 Body Temperature 97.8 [degF] Laureano Riding [facility] Work Phone: 05-20-2011 15:35-0500 Body weight 96.16 kg Laureano Riding [facility] Work Phone: 05-20-2011 15:35-0500 BP Diastolic 82 mm[Hg] Laureano Riding [facility] Work Phone: Comment on above: Patient Position: Sitting; Cuff Location : Left Arm; Cuff Size: Standard 05-20-2011 15:35-0500 BP Systolic 142 mm[Hg] Laureano Riding [facility] Work Phone: Comment on above: Patient Position: Sitting; Cuff Location : Left Arm; Cuff Size: Standard 05-20-2011 15:35-0500 BSA (Body Surface Area) 2.18 m2 Laureano Riding [facility] Work Phone: 05-20-2011 15:35-0500 Height 182.88 cm Laureano Riding [facility] Work Phone: 05-20-2011 15:35-0500 Pulse (Heart Rate) 83 /min Laureano Riding [facility] Work Phone: Comment on above: Pattern: Regular 05-20-2011 15:35-0500 Pulse Oximetry 98 % Antonia Jeffers [facility] Work Phone: Comment on above: Room air 05-20-2011 15:35-0500 SaO2% (BldA) [Mass fraction] 98 % Laureano Riding [facility]; [facility] Work Phone: Comment on above: Room air 05-20-2011 15:35-0500 Weight 96.16 kg Antonia Jeffers [facility] Work Phone: 12-31-2010 13:54-0400 BMI (Body Mass Index) 29.7 kg/m2 LIUDMILA Moreno LPN [facility] Work Phone: 12-31-2010 13:54-0400 Body Temperature 97.6 [degF] LIUDMILA Moreno LPN [facility] Work Phone: Comment on above: Method: Oral 12-31-2010 13:54-0400 Body weight 99.34 kg LIUDMILA Moreno LPN [facility] Work Phone: 12-31-2010 13:54-0400 BP Diastolic 80 mm[Hg] LIUDMILA Moreno LPN [facility] Work Phone: Comment on above: Patient Position: Sitting; Cuff Location : Left Arm; Cuff Size: Standard 12-31-2010 13:54-0400 BP Systolic 120 mm[Hg] LIUDMILA Moreno LPN [facility] Work Phone: Comment on above: Patient Position: Sitting; Cuff Location : Left Arm; Cuff Size: Standard 12-31-2010 13:54-0400 BSA (Body Surface Area) 2.21 m2 LIUDMILA Moreno LPN [facility] Work Phone: 12-31-2010 13:54-0400 Height 182.88 cm LIUDMILA Moreno LPN [facility] Work Phone: 12-31-2010 13:54-0400 Pulse (Heart Rate) 76 /min LIUDMILA Moreno LPN [facility] Work Phone: Comment on above: Pattern: Regular 12-31-2010 13:54-0400 Respiratory Rate 18 /min LIUDMILA Moreno LPN [facility] Work Phone: Comment on above: Pattern: Unlabored 12-31-2010 13:54-0400 Weight 99.34 kg Antonia Jeffers [facility] Work Phone: 08-16-2010 11:37-0400 BMI (Body Mass Index) 30.92 kg/m2 Mi Burrell MD Work Phone: [facility] Work Phone: Comment on above: forget meds this am 08-16-2010 11:37-0400 Body Temperature 98 [degF] Mi Burrell MD Work Phone: [facility] Work Phone: Comment on above: Method: Oral forget meds this am 08-16-2010 11:37-0400 Body weight 103.42 kg Mi Burrell MD Work Phone: [facility] Work Phone: Comment on above: forget meds this am 08-16-2010 11:37-0400 BP Diastolic 82 mm[Hg] Mi Burrell MD Work Phone: [facility] Work Phone: Comment on above: Patient Position: Sitting; Cuff Location : Left Arm; Cuff Size: Standard forget meds this am 08-16-2010 11:37-0400 BP Systolic 136 mm[Hg] Mi Burrell MD Work Phone: [facility] Work Phone: Comment on above: Patient Position: Sitting; Cuff Location : Left Arm; Cuff Size: Standard forget meds this am 08-16-2010 11:37-0400 BSA (Body Surface Area) 2.25 m2 Mi Burrell MD Work Phone: [facility] Work Phone: Comment on above: forget meds this am 08-16-2010 11:37-0400 Height 182.88 cm Mi Burrell MD Work Phone: [facility] Work Phone: Comment on above: forget meds this am 08-16-2010 11:37-0400 Pulse (Heart Rate) 84 /min Mi Burrell MD Work Phone: [facility] Work Phone: Comment on above: Pattern: Regular forget meds this am 08-16-2010 11:37-0400 Respiratory Rate 16 /min Mi Burrell MD Work Phone: [facility] Work Phone: Comment on above: Pattern: Unlabored forget meds this am 08-16-2010 11:37-0400 Weight 103.42 kg Antonia Jeffers [facility] Work Phone: Comment on above: forget meds this am 12-06-2009 12:38-0400 Body weight 97.98 kg LIUDMILA Moreno HELIO [facility] Work Phone: 12-06-2009 12:38-0400 BP Diastolic 74 mm[Hg] LIUDMILA Moreno PLUG MACHINE OPERATOR [facility] Work Phone: Comment on above: Patient Position: Sitting; Cuff Location : Left Arm; Cuff Size: Standard 12-06-2009 12:38-0400 BP Systolic 118 mm[Hg] LIUDMILA Moreno PLUG MACHINE OPERATOR [facility] Work Phone: Comment on above: Patient Position: Sitting; Cuff Location : Left Arm; Cuff Size: Standard 12-06-2009 12:38-0400 Pulse (Heart Rate) 68 /min LIUDMILA Moreno PLUG MACHINE OPERATOR [facility] Work Phone: Comment on above: Pattern: Regular 12-06-2009 12:38-0400 Respiratory Rate 18 /min LIUDMILA Moreno PLUG MACHINE OPERATOR [facility] Work Phone: Comment on above: Pattern: Unlabored 12-06-2009 12:38-0400 Weight 97.98 kg Antonia Jeffers [facility] Work Phone: 10-22-2009 11:32-0400 Body Temperature 98.6 [degF] Katja Thayer RN [facility] Work Phone: Comment on above: Method: Oral 10-22-2009 11:32-0400 BP Diastolic 70 mm[Hg] Katja Thayer RN [facility] Work Phone: Comment on above: Patient Position: Sitting; Cuff Location : Left Arm; Cuff Size: Large 10-22-2009 11:32-0400 BP Systolic 120 mm[Hg] Katja Thayer RN [facility] Work Phone: Comment on above: Patient Position: Sitting; Cuff Location : Left Arm; Cuff Size: Large 10-22-2009 11:32-0400 Pulse (Heart Rate) 72 /min Katja Thayer RN [facility] Work Phone: Comment on above: Pattern: Regular 10-22-2009 11:32-0400 Respiratory Rate 18 /min Katja Thayer RN [facility] Work Phone: Comment on above: Pattern: Unlabored 10-16-2009 14:11-0400 Body weight 98.23 kg [facility] Work Phone: 10-16-2009 14:11-0400 BP Diastolic 80 mm[Hg] Sheila [facility] Work Phone: Comment on above: Patient Position: Sitting; Cuff Location : Left Arm; Cuff Size: Standard 10-16-2009 14:11-0400 BP Systolic 118 mm[Hg] Sheila [facility] Work Phone: Comment on above: Patient Position: Sitting; Cuff Location : Left Arm; Cuff Size: Standard 10-16-2009 14:11-0400 Pulse (Heart Rate) 66 /min [facility] Internal Medicine Work Phone: Comment on above: Pattern: Regular 10-16-2009 14:11-0400 Respiratory Rate 16 /min [facility] Internal Medicine Work Phone: Comment on above: Pattern: Unlabored 10-16-2009 14:11-0400 Weight 98.23 kg Antonia Jeffers [facility] Internal Medicine Work Phone: 07-27-2009 13:35-0500 Body Temperature 99.4 [degF] Sheila [facility] Internal Medicine Work Phone: Comment on above: Method: Oral 07-27-2009 13:35-0500 Body weight 98.23 kg Sheila [facility] Internal Medicine Work Phone: 07-27-2009 13:35-0500 BP Diastolic 68 mm[Hg] Sheila [facility] Internal Medicine Work Phone: Comment on above: Patient Position: Sitting; Cuff Location : Left Arm; Cuff Size: Standard 07-27-2009 13:35-0500 BP Systolic 102 mm[Hg] Sheila Sirl [facility] Work Phone: Comment on above: Patient Position: Sitting; Cuff Location : Left Arm; Cuff Size: Standard 07-27-2009 13:35-0500 Pulse (Heart Rate) 72 /min [facility] Internal Medicine Work Phone: Comment on above: Pattern: Regular 07-27-2009 13:35-0500 Respiratory Rate 18 /min [facility] Internal Medicine Work Phone: Comment on above: Pattern: Unlabored 07-27-2009 13:35-0500 Weight 98.23 kg Antonia Patrice [facility] Internal Medicine Work Phone: 05-24-2009 09:55-0500 Body weight 97.98 kg [facility]A [facility] Work Phone: 05-24-2009 09:55-0500 BP Diastolic 72 mm[Hg] LIUDMILA Moreno [facility] Work Phone: Comment on above: Patient Position: Sitting; Cuff Location : Left Arm; Cuff Size: Standard 05-24-2009 09:55-0500 BP Systolic 108 mm[Hg] LIUDMILA Moreno [facility] Work Phone: Comment on above: Patient Position: Sitting; Cuff Location : Left Arm; Cuff Size: Standard 05-24-2009 09:55-0500 Pulse (Heart Rate) 72 /min LIUDMILA Moreno [facility] Work Phone: Comment on above: Pattern: Regular 05-24-2009 09:55-0500 Respiratory Rate 18 /min LIUDMILA Moreno [facility] Internal Medicine Work Phone: Comment on above: Pattern: Unlabored 05-24-2009 09:55-0500 Weight 97.98 kg Antonia Jeffers [facility] Internal Medicine Work Phone: 12-01-2008 07:57-0400 BMI (Body Mass Index) 28.89 kg/m2 Verna Canchola RN [facility] Work Phone: 12-01-2008 07:57-0400 Body weight 96.62 kg Verna Canchola RN [facility] Work Phone: 12-01-2008 07:57-0400 BP Diastolic 72 mm[Hg] Verna Canchola RN [facility] Work Phone: Comment on above: Patient Position: Sitting; Cuff Location : Left Arm; Cuff Size: Large 12-01-2008 07:57-0400 BP Systolic 118 mm[Hg] Verna Canchola RN [facility] Work Phone: Comment on above: Patient Position: Sitting; Cuff Location : Left Arm; Cuff Size: Large 12-01-2008 07:57-0400 BSA (Body Surface Area) 2.19 m2 Verna Canchola RN [facility] Work Phone: 12-01-2008 07:57-0400 Head Circumference 0 cm Antonia Patrice [facility] Work Phone: 12-01-2008 07:57-0400 Head Occipital-frontal circumference 0 cm Verna Canchola RN [facility]; [facility] Work Phone: 12-01-2008 07:57-0400 Height 182.88 cm Verna Canchola RN [facility] Work Phone: 12-01-2008 07:57-0400 Pulse (Heart Rate) 80 /min Verna Canchola RN [facility] Work Phone: Comment on above: Pattern: Regular 12-01-2008 07:57-0400 Respiratory Rate 18 /min Verna Canchola RN [facility] Work Phone: Comment on above: Pattern: Unlabored 12-01-2008 07:57-0400 Weight 96.62 kg Antonia Patrice [facility] Work Phone: 11-10-2008 09:52-0400 Body weight 0 kg LIUDMILA Moreno LPN [facility] Work Phone: 11-10-2008 09:52-0400 BP Diastolic 80 mm[Hg] LIUDMILA Moreno LPN [facility] Work Phone: Comment on above: Patient Position: Sitting; Cuff Location : Left Arm; Cuff Size: Standard 11-10-2008 09:52-0400 BP Systolic 120 mm[Hg] LIUDMILA Moreno LPN [facility] Work Phone: Comment on above: Patient Position: Sitting; Cuff Location : Left Arm; Cuff Size: Standard 11-10-2008 09:52-0400 Head Circumference 0 cm Antonia Jeffers [facility] Internal Medicine Work Phone: 11-10-2008 09:52-0400 Head Occipital-frontal circumference 0 cm LIUDMILA Moreno LPN [facility] Medicine; [facility] Work Phone: 11-10-2008 09:52-0400 Height 0 cm LIUDMILA Moreno PLUG MACHINE OPERATOR [facility] Work Phone: 11-10-2008 09:52-0400 Pulse (Heart Rate) 70 /min LIUDMILA Moreno [facility] Work Phone: Comment on above: Pattern: Regular 11-10-2008 09:52-0400 Respiratory Rate 16 /min LIUDMILA Moreno PLUG MACHINE OPERATOR [facility] Work Phone: Comment on above: Pattern: Unlabored 11-10-2008 09:52-0400 Weight 0 kg Antonia Jeffers [facility] Internal Medicine Work Phone: 10-25-2008 08:15-0400 Body weight 97.07 kg LIUDMILA Moreno [facility] Work Phone: 10-25-2008 08:15-0400 BP Diastolic 78 mm[Hg] LIUDMILA Moreno [facility] Work Phone: Comment on above: Patient Position: Sitting; Cuff Location : Left Arm; Cuff Size: Standard 10-25-2008 08:15-0400 BP Systolic 118 mm[Hg] LIUDMILA Moreno [facility] Work Phone: Comment on above: Patient Position: Sitting; Cuff Location : Left Arm; Cuff Size: Standard 10-25-2008 08:15-0400 Head Circumference 0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 techniques were used for this CT. COMPARISON: None available. FINDINGS: There is no evidence of fracture or dislocation in the cervical spine. . 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 The dens is intact. Alignment is normal. The vertebral body heights are well-maintained. There are mild degenerative changes in the lower cervical spine with disc space narrowing and small osteophytes. The visualized paraspinal soft tissues are within normal limits. CT/Spine Cervical without Contras IMPRESSION: No fracture or dislocation in the cervical spine. Mild degenerative change. 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 Electronically Signed: Linda Curiel, at 20:04 EST Tel , Service support , CC: Antonia Jeffers DO; Aldo Figueroa MD Dog Raiser: Signed Antonia Jeffers Start: 03-28-2019 End: 03-28-2019 Tibia AND Fibula 2 Views Comments: See Note; NOTES: [facility] Imaging Services [address] [place] [address] Tibia AND Fibula 2 Views MR#: [id number] Acct: [id number] Name: FERNY STOUT Rep #: [id number] : 1950 M 68 From: Linda Curiel MD PCP: Antonia Jeffers DO Status: DEP ER Study: Tibia AND Fibula 2 Views Date of Exam: 03/28/19 Exam# [id number] Ordering Dr: Aldo Figueroa MD STUDY: X-RAY - RIGHT TIBIA AND FIBULA REASON FOR EXAM: Male, 68 years old. Trauma TECHNIQUE: 4 view(s) of the tibia and fibula were obtained. COMPARISON: None. FINDINGS: There is a markedly comminuted fracture of the proximal to mid tibia and a comminuted fracture of the mid fibula. There is diffuse soft tissue swelling. There are no radiodense foreign bodies. RAD/Tibia AND Fibula 2 Views IMPRESSION: Markedly comminuted fracture of the proximal to mid tibia. Comminuted fracture of the mid fibula. Soft tissue swelling. Electronically Signed: Linda Marieexiang, at 20:11 EST Tel , Service support , CC: Antonia Jeffers DO; Aldo Figueroa MD Dog Raiser: Signed Antonia Jeffers Appendectomy Antonette Gravius Comment on above: 1968 Appendectomy Jennifer Pina Comment on above: 1969 Appendectomy Antonette Gravius Comment on above: 1968 Appendectomy Verna Canchola Comment on above: 1968 Appendectomy Antonette Gravius Comment on above: 1968 Appendectomy [facility] Comment on above: 1968 Appendectomy Antonette Gravius Comment on above: 1968 Colonoscopy Antonette Gravius Comment on above: 2003 Colonoscopy Jennifer Pina Comment on above: 2003 Colonoscopy Antonette Gravius Comment on above: 2003 Colonoscopy Verna Canchola Comment on above: 2003 Colonoscopy Antonette Gravius Comment on above: 2003 Colonoscopy [facility] Comment on above: 2003 Colonoscopy Antonette Gravius Comment on above: 2004 ethmoidectomy/polype ctom y-orly 3-07 Antonette Gravius ethmoidectomy/polype ctom y-orly 3-07 Jennifer Pina ethmoidectomy/polype ctom y-orly 3-07 Antonette Gravius ethmoidectomy/polype ctom y-orly 3-07 Verna Canchola ethmoidectomy/polype ctom y-orly 3-07 Antonette Gravius ethmoidectomy/polype ctom y-orly 3-07 [facility] ethmoidectomy/polype ctom y-orly 3-07 Antonette Gravius ethmoidectomy/polype ctom y-orly 3-07 Antonette Gravius ethmoidectomy/polype ctom y-orly 3-07 Antonette Gravius ELECTRICAL ENGINEERING DRAFTING OFFICER ethmoidectomy/polype ctom y-orly 3-07 Matthieu Hanson LPN ethmoidectomy/polype ctom y-orly 3-07 Antonette Gravius ELECTRICAL ENGINEERING DRAFTING OFFICER ethmoidectomy/polype ctom y-orly 3-07 Esmer Larsen LPN H/O: surgery Hx of nasal polypectomy Comment on above: 2004 H/O: vasectomy Hx of vasectomy History of appendectomy Jasm in Gravius Comment on above: 1968 History of appendectomy Jasm in Gravius ELECTRICAL ENGINEERING DRAFTING OFFICER Comment on above: 1968 History of appendectomy Merrick Hanson LPN Comment on above: 1968 History of appendectomy History of append ectomy History of appendectomy Jasm in Gravius ELECTRICAL ENGINEERING DRAFTING OFFICER Comment on above: 1968 History of appendectomy Rubin Larsen LPN Comment on above: 1968 History of appendectomy Jose Tsang MA History of appendectomy Christine matthews Itzel [facility] History of appendectomy Christine matthews Itzel ELECTRICAL ENGINEERING DRAFTING OFFICER History of appendectomy Dako ta Regino PLUG MACHINE OPERATOR History of appendectomy Jose Tsang MA History of repair of inguinal hernia Hx of right inguinal hernia repair Comment on above: 2003 Inguinal Hernia Antonette Gravi Comment on above: Repair 02/20 Inguinal Hernia Jennifer Pina Comment on above: Repair 02/20 Inguinal Hernia Antonette Gravi us Comment on above: Repair 02/20 Inguinal Hernia Verna felix Comment on above: Repair 02/20 Inguinal Hernia Antonette Gravi us Comment on above: Repair 02/20 Inguinal Hernia [facility] Comment on above: Repair 02/20 Inguinal Hernia Antonette Gravi us Comment on above: Repair 02/20 Inguinal Hernia Antonette Gravi Comment on above: Repair 02/20 Inguinal Hernia Antonette Gravi [facility] Comment on above: Repair 02/20 Inguinal Hernia Matthieu Hanson PLUG MACHINE OPERATOR Comment on above: Repair 02/20 Inguinal Hernia Antonette Gravi us [facility] Comment on above: Repair 02/20 Inguinal Hernia Esmer Genoveva n PLUG MACHINE OPERATOR Comment on above: Repair 02/20 Past history of procedure Antonette Gravius Comment on above: 2003 Past history of procedure Antonette Gravius [facility] Comment on above: 2003 Past history of procedure Matthieu Hanson PLUG MACHINE OPERATOR Comment on above: 2003 Past history of procedure Antonette Gravius [facility] Comment on above: 2003 Past history of procedure Esmer Larsen PLUG MACHINE OPERATOR Comment on above: 2003 Past history of procedure Maryjo Tsang MA Past history of procedure Mulugeta Itzel [facility] Past history of procedure Augustokanchancorona Itzel ELECTRICAL ENGINEERING DRAFTING OFFICER Past history of procedure Jorden Regino PLUG MACHINE OPERATOR Past history of procedure Maryjo Tsang MA Vasectomy Antonette Gravius Comment on above: Vasectomy Jennifer Pina Comment on above: Vasectomy Antonette Gravius Comment on above: Vasectomy Verna Canchola Comment on above: Vasectomy Antonette Gravius Comment on above: Vasectomy [facility] Comment on above: Vasectomy Antonette Gravius Comment on above: Vasectomy planned Antonette Gra vius Comment on above: Vasectomy planned Antonette Gra vius ELECTRICAL ENGINEERING DRAFTING OFFICER Comment on above: Vasectomy planned Matthieu Tristan is PLUG MACHINE OPERATOR Comment on above: Vasectomy planned Antonette Gra vius ELECTRICAL ENGINEERING DRAFTING OFFICER Comment on above: Vasectomy planned Esmer Coff man PLUG MACHINE OPERATOR Comment on above: Vasectomy planned Maryjo cuellar MA Vasectomy planned Kayela Rad santiago ELECTRICAL ENGINEERING DRAFTING OFFICER Vasectomy planned Kayela Rad santiago ELECTRICAL ENGINEERING DRAFTING OFFICER Vasectomy planned Jorden Pry or PLUG MACHINE OPERATOR Vasectomy planned Maryjo cuellar MA Esmer Larsen L PN Maryjo Tsang MA Kayela Itzel ELECTRICAL ENGINEERING DRAFTING OFFICER Kayela Itzel ELECTRICAL ENGINEERING DRAFTING OFFICER Kayela Ramah ELECTRICAL ENGINEERING DRAFTING OFFICER Kayela Itzel ELECTRICAL ENGINEERING DRAFTING OFFICER Jorden Dennehotso LP N Jorden Dennehotso LP N Maryjo Tsang MA Plan of Treatment Date Care Activity Detail Author Start: 02-20-2023 25 hydroxy includes fractions if performed [facility]; [facility] Work Phone: Start: 02-20-2023 Assay of thyroid stimulating hormone tsh [facility]; [facility] Work Phone: Start: 02-20-2023 Urnls dip stick/tabl et reagent auto microscopy [facility]; [facility] Work Phone: Start: 02-20-2023 Urine albumin quantitative [facility]; [facility] Work Phone: Start: 02-20-2023 Comprehensive metabo lic panel [facility]; [facility] Work Phone: Start: 02-20-2023 Lipid panel Comprehens [facility]; [facility] Work Phone: Start: 02-20-2023 Blood count complete auto&auto difrntl wbc [facility]; [facility] Work Phone: Start: 02-20-2023 Procedure Education [facility]; [facility] Work Phone: Start: 02-20-2023 Provider Instruction s for Treatment [facility]; [facility] Work Phone: Start: 10-01-2022 Assay of prostate specific antigen total [facility]; [facility] Work Phone: Start: 10-01-2022 Provider Instruction s for Treatment [facility]; [facility] Work Phone: Start: 06-27-2022 25 hydroxy includes fractions if performed [facility]; [facility] Work Phone: Start: 06-27-2022 Assay of thyroid stimulating hormone tsh [facility]; [facility] Work Phone: Start: 06-27-2022 Urnls dip stick/tabl et reagent auto microscopy [facility]; [facility] Work Phone: Start: 06-27-2022 Urine albumin quantitative [facility]; [facility] Work Phone: Start: 06-27-2022 Comprehensive metabo lic panel [facility]; [facility] Work Phone: Start: 06-27-2022 Blood count complete auto&auto difrntl wbc [facility]; [facility] Work Phone: Start: 06-27-2022 Lipid panel Comprehens [facility]; [facility] Work Phone: Start: 06-27-2022 Procedure Education [facility]; [facility] Work Phone: Start: 06-27-2022 Provider Instruction s for Treatment [facility]; [facility] Work Phone: Start: 03-28-2022 Procedure Education [facility]; [facility] Work Phone: Start: 03-14-2022 Procedure Education [facility]; [facility] Work Phone: Start: 03-14-2022 Provider Instruction s for Treatment [facility]; [facility] Work Phone: Start: 01-16-2022 Influenza vaccination INFLUENZA (#1) [facility] Start: 11-11-2021 [facility]; [facility] Work Phone: Start: 11-11-2021 Assay of prostate specific antigen total [facility]; [facility] Work Phone: Start: 11-11-2021 Urnls dip stick/tabl et rgnt auto w/o microscopy [facility]; [facility] Work Phone: Start: 11-11-2021 25 hydroxy includes fractions if performed [facility]; [facility] Work Phone: Start: 11-11-2021 Assay of thyroid stimulating hormone tsh [facility]; [facility] Work Phone: Start: 11-11-2021 Urine albumin quantitative [facility]; [facility] Work Phone: Start: 11-11-2021 Comprehensive metabo lic panel [facility]; [facility] Work Phone: Start: 11-11-2021 Blood count complete auto&auto difrntl wbc [facility]; [facility] Work Phone: Start: 11-11-2021 Lipid panel Comprehens [facility]; [facility] Work Phone: Start: 11-11-2021 Procedure Education [facility]; [facility] Work Phone: Start: 11-11-2021 Provider Instruction s for Treatment [facility]; [facility] Work Phone: Start: 08-07-2021 Procedure Education [facility]; [facility] Work Phone: Start: 08-07-2021 Provider Instruction s for Treatment [facility]; [facility] Work Phone: Start: 05-18-2021 ADVANCE DIRECTIVE DISCUSSION ADVANCE DIRECTIVE DISCUSSION [facility] Start: 05-18-2021 DEPRESSION ASSESSMENT DEPRESSION ASS ESSMENT [facility] Start: 05-08-2021 25 hydroxy includes fractions if performed [facility]; [facility] Work Phone: Start: 05-08-2021 Assay of thyroid stimulating hormone tsh [facility]; [facility] Work Phone: Start: 05-08-2021 Urnls dip stick/tabl et reagent auto microscopy [facility]; [facility] Work Phone: Start: 05-08-2021 Urine albumin quantitative [facility]; [facility] Work Phone: Start: 05-08-2021 Comprehensive metabo lic panel [facility]; [facility] Work Phone: Start: 05-08-2021 Lipid panel [facility]; [facility] Work Phone: Start: 05-08-2021 Blood count complete auto&auto difrntl wbc [facility]; [facility] Work Phone: Start: 05-08-2021 Procedure Education [facility]; [facility] Work Phone: Start: 05-08-2021 Provider Instruction s for Treatment [facility]; [facility] Work Phone: Start: 01-07-2021 Procedure Education [facility]; [facility] Work Phone: Start: 01-07-2021 Provider Instruction s for Treatment [facility]; [facility] Work Phone: Start: 09-03-2020 Procedure Education [facility]; [facility] Work Phone: Start: 09-03-2020 Provider Instruction s for Treatment [facility]; [facility] Work Phone: Start: 09-03-2020 Assay of prostate specific antigen total [facility]; [facility] Work Phone: Start: 09-03-2020 25 hydroxy includes fractions if performed [facility]; [facility] Work Phone: Start: 09-03-2020 Assay of thyroid stimulating hormone tsh [facility]; [facility] Work Phone: Start: 09-03-2020 Urnls dip stick/tabl et reagent auto microscopy [facility]; [facility] Work Phone: Start: 09-03-2020 Urine albumin quantitative [facility]; [facility] Work Phone: Start: 09-03-2020 Comprehensive metabo lic panel [facility]; [facility] Work Phone: Start: 09-03-2020 Lipid panel [facility]; [facility] Work Phone: Start: 09-03-2020 Blood count manual c ell count each [facility]; [facility] Work Phone: Start: 05-04-2020 Procedure Education [facility]; [facility] Work Phone: Start: 05-04-2020 Provider Instruction s for Treatment [facility]; [facility] Work Phone: Start: 05-04-2020 HbA1c (Bld) [Mass fraction] HGB A1C (61692) [facility]; [facility] Work Phone: Start: 05-04-2020 Hemoglobin glycosyla saw a1c [facility]; [facility] Work Phone: Start: 03-14-2020 Procedure Education [facility] Work Phone: Start: 02-02-2020 25 hydroxy includes fractions if performed [facility] Work Phone: Start: 02-02-2020 Assay of thyroid stimulating hormone tsh [facility]; [facility] Work Phone: Start: 02-02-2020 TSH Qn TSH ([id number]) [facility] Work Phone: Start: 02-02-2020 Urnls dip stick/tabl et reagent auto microscopy [facility] Work Phone: Start: 02-02-2020 Urine albumin quantitative [facility] Work Phone: Start: 02-02-2020 Comprehensive metabo lic panel [facility] Work Phone: Start: 02-02-2020 Lipid panel [facility] Work Phone: Start: 02-02-2020 Blood count complete auto&auto difrntl wbc [facility] Work Phone: Start: 02-02-2020 Procedure Education [facility] Work Phone: Start: 02-02-2020 Provider Instruction s for Treatment [facility] Work Phone: Start: 11-02-2019 Procedure Education [facility] Work Phone: Start: 11-02-2019 Provider Instruction s for Treatment [facility] Work Phone: Start: 10-28-2019 Lipoprotein blood qu an numbers & subclasses [facility] Work Phone: Start: 10-28-2019 Assay of thyroid stimulating hormone tsh [facility]; [facility] Work Phone: Start: 10-28-2019 TSH Qn TSH (THYROID STIMULATING HORMONE) ([id number]) [facility] Work Phone: Start: 10-28-2019 25 hydroxy includes fractions if performed [facility] Work Phone: Start: 10-28-2019 Urine albumin quantitative [facility] Work Phone: Start: 10-28-2019 Urnls dip stick/tabl et reagent auto microscopy [facility] Work Phone: Start: 10-28-2019 Blood count manual c ell count each [facility] Work Phone: Start: 10-28-2019 Comprehensive metabo lic panel [facility] Work Phone: Start: 04-28-2019 Procedure Education [facility] Work Phone: Start: 04-28-2019 Provider Instruction s for Treatment [facility] Work Phone: Start: 04-28-2019 Blood count complete auto&auto difrntl wbc [facility] Work Phone: Start: 01-16-2019 Influenza vaccination Flu [facility] (# 1[facility] [place] Start: 12-23-2018 25 hydroxy includes fractions if performed [facility] Work Phone: Start: 12-23-2018 Lipoprotein blood qu an numbers & subclasses [facility] Work Phone: Start: 12-23-2018 Assay of thyroid stimulating hormone tsh [facility]; [facility] Work Phone: Start: 12-23-2018 TSH Qn TSH ([id number]) [facility] Work Phone: Start: 12-23-2018 Urnls dip stick/tabl et reagent auto microscopy [facility] Work Phone: Start: 12-23-2018 Urine albumin quantitative [facility] Work Phone: Start: 12-23-2018 Comprehensive metabo lic panel [facility] Work Phone: Start: 12-23-2018 Blood count complete auto&auto difrntl wbc [facility] Work Phone: Start: 12-23-2018 Provider Instruction s for Treatment [facility] Work Phone: Start: 08-30-2018 Provider Instruction s for Treatment [facility] Work Phone: Start: 05-17-2018 Procedure Education [facility] Work Phone: Start: 05-17-2018 Provider Instruction s for Treatment [facility] Work Phone: Start: 05-17-2018 25 hydroxy includes fractions if performed [facility] Work Phone: Start: 05-17-2018 Assay of thyroid stimulating hormone tsh [facility]; [facility] Work Phone: Start: 05-17-2018 Thyrotropin Qn TSH (81745) [facility] Work Phone: Start: 05-17-2018 Urnls dip stick/tabl et reagent auto microscopy [facility] Work Phone: Start: 05-17-2018 Urine albumin quantitative [facility] Work Phone: Start: 05-17-2018 Comprehensive metabo lic panel [facility] Work Phone: Start: 05-17-2018 Blood count complete auto&auto difrntl wbc [facility] Work Phone: Start: 05-17-2018 Lipoprotein blood qu an numbers & subclasses [facility]; [facility] Work Phone: Start: 05-17-2018 Protein mass conc LIPOPROTEIN, BLD, BY NMR ([id number]) [facility] Work Phone: Start: 02-12-2018 Procedure Education [facility] Work Phone: Start: 02-12-2018 Provider Instruction s for Treatment [facility] Work Phone: Start: 02-11-2018 25 hydroxy includes fractions if performed [facility] Work Phone: Start: 02-11-2018 Hemoglobin A1c/Hemoglobin.total mass fraction (Bld) HGB A1C (60259) [facility] Work Phone: Start: 02-11-2018 Hemoglobin glycosyla saw a1c [facility]; [facility] Work Phone: Start: 02-11-2018 Blood count manual c ell count each [facility] Work Phone: Start: 02-11-2018 Assay of thyroid stimulating hormone tsh [facility]; [facility] Work Phone: Start: 02-11-2018 Thyrotropin Qn TSH ([id number]) [facility] Work Phone: Start: 02-11-2018 Urinalysis qual/semiquant except immunoassays [facility] Work Phone: Start: 02-11-2018 Urine albumin quantitative [facility] Work Phone: Start: 02-11-2018 Lipid panel [facility] Work Phone: Start: 02-11-2018 Comprehensive metabo lic panel [facility] Work Phone: Start: 01-28-2018 Lipid panel [facility] Work Phone: Start: 01-28-2018 Assay of thyroid stimulating hormone tsh [facility]; [facility] Work Phone: Start: 01-28-2018 Thyrotropin Qn TSH (THYROID STIMULATING HORMONE) ([id number]) [facility] Work Phone: Start: 01-28-2018 Comprehensive metabo lic panel [facility] Work Phone: Start: 01-28-2018 Blood count manual c ell count each [facility] Work Phone: Start: 01-28-2018 Urinalysis qual/semiquant except immunoassays [facility] Work Phone: Start: 01-28-2018 Urine albumin quantitative [facility] Work Phone: Start: 01-28-2018 25 hydroxy includes fractions if performed [facility] Work Phone: Start: 07-17-2017 Provider Instruction s for Treatment [facility] Work Phone: Start: 07-10-2017 Provider Instruction s for Treatment [facility] Work Phone: Start: 04-17-2017 Procedure Education [facility] Work Phone: Start: 04-17-2017 Provider Instruction s for Treatment [facility] Work Phone: Start: 04-17-2017 25 hydroxy includes fractions if performed [facility] Work Phone: Start: 04-17-2017 Assay of thyroid stimulating hormone tsh [facility]; [facility] Work Phone: Start: 04-17-2017 Thyrotropin Qn TSH ([id number]) [facility] Work Phone: Start: 04-17-2017 Urnls dip stick/tabl et reagent auto microscopy [facility] Work Phone: Start: 04-17-2017 Urine albumin quantitative [facility] Work Phone: Start: 04-17-2017 Comprehensive metabo lic panel [facility] Work Phone: Start: 04-17-2017 Lipid panel [facility] Work Phone: Start: 04-17-2017 Blood count complete auto&auto difrntl wbc [facility] Work Phone: Start: 03-27-2017 Provider Instruction s for Treatment [facility] Work Phone: Start: 10-09-2016 Procedure Education [facility] Work Phone: Start: 10-09-2016 Provider Instruction s for Treatment [facility] Work Phone: Start: 10-09-2016 Basic metabolic pane l calcium total [facility] Work Phone: Start: 10-09-2016 Hepatic function panel [facility] Work Phone: Start: 10-09-2016 Lipid panel [facility] Work Phone: Start: 06-11-2016 25 hydroxy includes fractions if performed [facility] Work Phone: Start: 06-11-2016 Assay of thyroid stimulating hormone tsh [facility]; [facility] Work Phone: Start: 06-11-2016 Thyrotropin Qn TSH ([id number]) [facility] Work Phone: Start: 06-11-2016 Urnls dip stick/tabl et reagent auto microscopy [facility] Work Phone: Start: 06-11-2016 Urine albumin quantitative [facility] Work Phone: Start: 06-11-2016 Comprehensive metabo lic panel [facility] Work Phone: Start: 06-11-2016 Blood count complete auto&auto difrntl wbc [facility] Work Phone: Start: 06-11-2016 Lipid panel [facility] Work Phone: Start: 06-11-2016 Gluc bld gluc mntr d ev cleared fda spec home use [facility]; [facility] Work Phone: Start: 06-11-2016 Glucose mass conc Blood Glucos e , Office (33533) [facility] Work Phone: Start: 06-11-2016 Procedure Education [facility] Work Phone: Start: 06-11-2016 Provider Instruction s for Treatment [facility] Work Phone: Start: 04-22-2016 Procedure Education [facility] Work Phone: Start: 03-10-2016 Patient Education [facility] Work Phone: Start: 03-10-2016 Provider Instruction s for Treatment [facility] Work Phone: Start: 02-18-2016 Urine albumin quantitative [facility] Work Phone: Start: 02-18-2016 Urinalysis qual/semiquant except immunoassays [facility] Work Phone: Start: 02-18-2016 Blood count complete auto&auto difrntl wbc [facility] Work Phone: Start: 02-18-2016 Lipid panel [facility] Work Phone: Start: 02-18-2016 Assay of thyroid stimulating hormone tsh [facility]; [facility] Work Phone: Start: 02-18-2016 Thyrotropin Qn TSH (THYROID STIMULATING HORMONE) ([id number]) [facility] Work Phone: Start: 02-18-2016 25 hydroxy includes fractions if performed [facility] Work Phone: Start: 02-18-2016 Assay of prostate specific antigen total [facility] Work Phone: Start: 02-18-2016 Protein mass conc PSA (PROSTAT E SPECIFIC ANTIGEN) ([id number]) [facility] Work Phone: Start: 02-18-2016 Comprehensive metabo lic panel [facility] Work Phone: Start: 05-30-2015 Provider Instruction s for Treatment [facility] Work Phone: Start: 12-26-2014 Procedure Education [facility] Work Phone: Start: 12-26-2014 Urnls dip stick/tabl et reagent auto microscopy [facility] Work Phone: Start: 12-26-2014 Comprehensive metabo lic panel [facility] Work Phone: Start: 12-26-2014 Lipid panel [facility] Work Phone: Start: 12-26-2014 Blood count manual c ell count each [facility] Work Phone: Start: 08-29-2014 Procedure Education [facility] Work Phone: Start: 08-29-2014 Urine albumin quantitative [facility] Work Phone: Start: 08-29-2014 Urnls dip stick/tabl et reagent auto microscopy [facility] Work Phone: Start: 08-25-2014 Comprehensive metabo lic panel [facility] Work Phone: Start: 08-25-2014 Lipid panel [facility] Work Phone: Start: 08-25-2014 Blood count manual c ell count each [facility] Work Phone: Start: 08-25-2014 Urine albumin quantitative [facility] Work Phone: Start: 08-25-2014 Urinalysis qual/semiquant except immunoassays [facility] Work Phone: Start: 08-25-2014 Assay of prostate specific antigen total [facility] Work Phone: Start: 08-25-2014 Protein mass conc PSA (PROSTAT E SPECIFIC ANTIGEN) ([id number]) [facility] Work Phone: Start: 2014 Pneumococcal 65+ yea rs Vaccine (1 of 1 - PPSV23) Pneumococcal 65+ years Vaccine (1 of 1 - PPSV23) [place], [place] Start: 05-15-2014 Provider Instruction s for Treatment [facility] Work Phone: Start: 04-28-2014 Blood count platelet automated [facility] Work Phone: Comment on above: recheck before follo w up in 2014 Start: 04-27-2014 Procedure Education [facility] Work Phone: Start: 04-27-2014 Blood count complete auto&auto difrntl wbc [facility] Work Phone: Comment on above: citrate tube Start: 12-09-2013 Procedure Education [facility] Work Phone: Start: 12-09-2013 Blood count manual c ell count each [facility] Work Phone: Start: 12-09-2013 Urine albumin quantitative [facility] Work Phone: Start: 12-09-2013 Urinalysis qual/semiquant except immunoassays [facility] Work Phone: Start: 12-09-2013 Comprehensive metabo lic panel [facility] Work Phone: Start: 12-09-2013 Lipid panel [facility] Work Phone: Start: 08-08-2013 Assay of prostate specific antigen total [facility] Work Phone: Start: 08-08-2013 Protein mass conc PSA (PROSTAT E SPECIFIC ANTIGEN) (V76.44) [facility] Work Phone: Start: 08-05-2013 Assay of prostate specific antigen total [facility] Work Phone: Start: 08-05-2013 Protein mass conc PSA (PROSTAT E SPECIFIC ANTIGEN) (V76.44) [facility] Work Phone: Start: 08-05-2013 Lipid panel [facility] Work Phone: Start: 04-08-2013 Urine albumin quantitative [facility] Work Phone: Start: 04-08-2013 Blood count manual c ell count each [facility] Work Phone: Start: 04-08-2013 Comprehensive metabo lic panel [facility] Work Phone: Start: 04-08-2013 Lipid panel [facility] Work Phone: Start: 01-07-2013 Calcium ionized [facility] Work Phone: Start: 01-07-2013 25 hydroxy includes fractions if performed [facility] Work Phone: Start: 10-08-2012 Patient Education [facility] Work Phone: Start: 10-08-2012 Comprehensive metabo lic panel [facility] Work Phone: Start: 10-08-2012 Lipid panel [facility] Work Phone: Start: 10-05-2012 Comprehensive metabo lic panel [facility] Work Phone: Start: 10-05-2012 Lipid panel [facility] Work Phone: Start: 10-05-2012 Blood count manual c ell count each [facility] Work Phone: Start: 10-05-2012 Urinalysis qual/semiquant except immunoassays [facility] Work Phone: Start: 10-05-2012 Urine albumin quantitative [facility] Work Phone: Start: 10-05-2012 Assay of prostate specific antigen total [facility] Work Phone: Start: 10-05-2012 Protein mass conc PSA (Prostat e Specific Antigen), Screening (02631) [facility] Work Phone: Start: 02-16-2012 Blood count manual c ell count each [facility] Work Phone: Start: 02-16-2012 Urine albumin quantitative [facility] Work Phone: Start: 02-16-2012 Urnls dip stick/tabl et reagent auto microscopy [facility] Work Phone: Start: 10-20-2011 Lipid panel [facility] Work Phone: Start: 10-20-2011 25 hydroxy includes fractions if performed [facility] Work Phone: Start: 10-20-2011 Calcium mass conc Calcium Serum (823 10) [facility] Work Phone: Start: 10-20-2011 Calcium total [facility]; [facility] Work Phone: Start: 06-06-2011 Provider Instruction s for Treatment [facility] Work Phone: Start: 05-20-2011 Hemoglobin A1c/Hemoglobin.total mass fraction (Bld) Hemoglobin Glyclated (HGB A1C) (82046) [facility] Work Phone: Start: 05-20-2011 Hemoglobin glycosyla saw a1c [facility]; [facility] Work Phone: Start: 12-06-2009 Assay of prostate specific antigen total [facility] Work Phone: Start: 12-06-2009 Protein mass conc PSA (PROSTAT E SPECIFIC ANTIGEN) (V76.44) [facility] Work Phone: Start: 12-06-2009 Urine albumin quantitative [facility] Work Phone: Start: 12-06-2009 Comprehensive metabo lic panel [facility] Work Phone: Start: 12-06-2009 Lipid panel [facility] Work Phone: Start: 12-06-2009 Blood count manual c ell count each [facility] Work Phone: Start: 12-06-2009 Hemoglobin A1c/Hemoglobin.total mass fraction (Bld) HgA1C , Office (97175) [facility] Work Phone: Start: 12-06-2009 Hemoglobin glycosyla saw a1c [facility]; [facility] Work Phone: Start: 10-22-2009 Provider Instruction s for Treatment [facility] Work Phone: Start: 05-24-2009 Comprehensive metabo lic panel [facility] Work Phone: Start: 05-24-2009 Lipid panel [facility] Work Phone: Start: 11-10-2008 Provider Instruction s for Treatment [facility] Work Phone: Start: 10-25-2008 Assay of prostate specific antigen total [facility] Work Phone: Start: 10-25-2008 Protein mass conc PSA (PROSTAT E SPECIFIC ANTIGEN) (V76.44) [facility] Work Phone: Start: 10-25-2008 Urine albumin quantitative [facility] Work Phone: Start: 10-25-2008 Comprehensive metabo lic panel [facility] Work Phone: Start: 10-25-2008 Lipid panel [facility] Work Phone: Start: 10-25-2008 Blood count manual c ell count each [facility] Work Phone: Start: 05-09-2008 Comprehensive metabo lic panel [facility] Work Phone: Start: 05-09-2008 Lipid panel [facility] Work Phone: Start: 10-19-2007 Assay of prostate specific antigen total [facility] Work Phone: Start: 10-19-2007 Protein mass conc PSA (PROSTAT E SPECIFIC ANTIGEN) (V76.44) [facility] Work Phone: Start: 10-19-2007 Comprehensive metabo lic panel [facility] Work Phone: Start: 10-19-2007 Lipid panel [facility] Work Phone: Start: 10-19-2007 Blood count manual c ell count each [facility] Work Phone: Comment on above: in six months (appro ximately) Start: 06-24-2007 Hepatic function panel [facility] Work Phone: Start: 06-24-2007 Lipid panel [facility] Work Phone: Start: 11-17-2006 Glucose mass conc Glucose (83729) [facility] Work [facility]: Start: 11-17-2006 Glucose quantitative blood xcpt reagent strip [facility]; [facility] Work Phone: Start: 11-17-2006 Lipid panel [facility] Work Phone: Start: 11-17-2006 Hepatic function panel [facility] Work Phone: Comment on above: in six months (appro ximately) Start: 11-17-2006 Hemoglobin A1c/Hemoglobin.total mass fraction (Bld) HgA1C , Office (06299) [facility] Work Phone: Start: 11-17-2006 Hemoglobin glycosyla saw a1c [facility]; [facility] Work Phone: Start: 08-13-2006 Hemoglobin A1c/Hemoglobin.total mass fraction (Bld) Hemoglobin Glyclated (HGB A1C) (20027) [facility] Internal Medicine Work Phone: Start: 08-13-2006 Hemoglobin glycosyla saw a1c [facility]; [facility] Work Phone: Start: 08-13-2006 Blood count complete automated [facility] Work Phone: Start: 08-13-2006 Comprehensive metabo lic panel [facility] Work Phone: Start: 08-13-2006 Lipid panel Comprehens kaitlin [facility] Work Phone: Comment on above: in six months Start: 08-13-2006 Assay of prostate specific antigen total [facility] Work Phone: Start: 08-13-2006 Protein mass conc PSA (PROSTAT E SPECIFIC ANTIGEN) (65951) [facility] Work Phone: Start: 1999 Colon cancer screen colonoscopy Colon cancer screen colonoscopy [place], [place] Start: 1999 Shingles Vaccine (1 of 2) Shingles Vaccine (1 of 2) [place] Start: 1999 SHINGRIX VACCINE (1 of 2) SHINGRIX VACCINE (1 of 2) [facility] Start: 1994 COLOGUARD (FIT-DNA) COLOGUARD (FIT-D NA) [facility] Start: 1994 Colonoscopy COLONOSCOPY [facility] Start: 1994 COLORECTAL CANCER SCREENING COLORECTAL CANCER SCREENING [facility] Start: [address] COLONOGRAPHY [facility] Start: 1994 DIABETES SCREEN DIABETES SCREEN [facility] Start: 1994 FECAL OCCULT BLOOD FECAL OCCULT BLOO D [facility] Start: 1994 SIGMOIDOSCOPY SIGMOIDOSCOPY [facility] Start: 1984 LIPID SCREEN LIPID SCREEN [facility] Start: 1968 Urine microalbumin profile DTAP,TDAP,TD (1 - Tdap) [facility] Start: 1967 HEPATITIS C SCREENING HEPATITIS C [facility] Start: 1960 DTaP/Tdap/Td vaccine (1 - Tdap) DTaP/Tdap/Td vaccine (1 - Tdap) [place], [place] Start: 1959 Lipid screen Lipid screen [place], [place] Start: 1955 PNEUMOCOCCAL: 65+ (1 - PCV) PNEUMOCOCCAL: 65+ (1 - PCV) [facility] Start: 1949 AAA screen AAA screen [place], [place] Start: 1949 ABDOMINAL AORTIC ANEURYSM SCREENING ABDOMINAL AORTIC ANEURYSM SCREENING [facility] Start: 1949 Creatinine monitoring Creatinine mon shahid [place], [place] Start: 1949 Hepatitis C screen Hepatitis C scree n [place] Start: 1949 Potassium monitoring Potassium monit oring [place] CBC CBC Lab Routine Daily until discontinued starting 03/29/2019, 3 completed [place] Comment on above: Daily until disconti nued starting 03/29/2019, 3 completed End: 03-29-2019 FL Greater Than 1 Hour [place] Greater Than 1 Hour Imaging Routine Once for 1 Occurrences starting 03/29/2019 until 03/29/2019 [place] Comment on above: Once for 1 Occurrenc es starting 03/29/2019 until 03/29/2019 FL Greater Than 1 Hour [place] Greate r Than 1 Hour Imaging Routine 03/29/2019 5:40 PM EST [place] Initiate Oxygen Ther apy Protocol Initiate Oxygen Therapy Protocol Respiratory Care Routine Daily until discontinued starting 03/29/2019 [place] Comment on above: Daily until disconti nued starting 03/29/2019 POCT Glucose [place] Comment on above: As Needed until disc ontinued starting 03/29/2019 4X Daily (AC & HS) u ntil discontinued starting 03/30/2019 VL DUP LOWER EXTREMI TY VENOUS BILATERAL VL DUP LOWER EXTREMITY VENOUS BILATERAL Imaging Routine Every Mo,Th until discontinued starting 03/31/2019, 1 completed [place] Comment on above: Every Mo,Th until di scontinued starting 03/31/2019, 1 completed [facility] Work Phone: [facility] Work Phone: [facility] Work Phone: [facility] Work Phone: [facility] Work Phone[facility] Work Phone: [facility] Work Phone: [facility] Work Phone: [facility] Work Phone: [facility] Work Phone[facility] Work Phone: [facility] Work Phone: [facility] Work Phone: [facility] Work Phone: [facility] Work Phone: [facility] Work Phone: [facility] Work Phone: [facility] Work Phone[facility] Work Phone: [facility] Work Phone: [facility] Work Phone: [facility]; [facility] Work Phone: [facility]; [facility] Work Phone: [facility]; [facility] Work Phone: [facility]; [facility] Work Phone: [facility]; [facility] Work Phone: Immunizations Immunization Date Immunization Notes Care Provider [facility] 10-01-2022 zoster vaccine, live Kathaja valentine Patrice DO Work Phone: [facility]; [facility] Work Phone: 10-01-2022 zoster vaccine recombinant Antonia Patrice DO Work Phone: [facility]; [facility] Work Phone: 03-28-2019 tetanus toxoid, redu mary diphtheria toxoid, and acellular pertussis vaccine, [facility] 08-29-2014 pneumococcal polysaccharide vaccine, 23 valent Antonia Jeffers [facility] Work Phone: Comment on above: Site: Deltoid (Right ) Payers Date Payer Category Payer Self-pay [id number] 2021 Unknown 2021 Unknown [id number] 2018 Unknown [facility] PP [facility] xxxxxxxxx 2018-Present [phone] [address] [place] [address] xxxxxxxxx [id number] 2006 Unknown [id number] 1950 Unknown [id number] Medicare [id number] Unknown [id number] Unknown [id number] Unknown [id number] Unknown [id number] Unknown [id number] Unknown [id number] Social History Date Type Detail Facility Alcohol Use Alcohol Use [facility] Work Phone: Comment on above: Occasional 5 QD [employer]ides Bike , homosexual , partner who is HIV positivepatient got to domestic partner in [place], [place] November 2013 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 mendiolarafa Smokes cigars - Quit in 2005 Start: 03-30-2019 End: 01-04-2021 Tobacco smoking status NHIS Current every day smoker [facility] History of tobacco use Pipe Smoker [place] History of tobacco use Cigar Sm[place] Start: 03-30-2019 Alcohol intake Current drinke r of alcohol (finding) [place] Start: 03-28-2019 History SDOH Alcohol Frequency 4 [place] Start: 1950 Sex Assigned At Not on file M [place] Start: 01-04-2021 End: 01-04-2021 Tobacco smoking status NHIS Unknown if ever smoked [facility] Start: 04-01-2019 None [facility] Start: 04-01-2019 Spouse/ Signif icant Other [facility] Start: 04-01-2019 Cigars;Pipe [facility] Start: 1950 Sex Assigned At Male W [facility] History of tobacco use Cigarette Smoker [facility] Start: 03-27-2022 Tobacco use and exposure Smoke less tobacco non-user [facility] Start: 03-17-2022 End: 03-27-2022 Exposure to SARS-CoV-2 (event) Not sure [facility] Work Phone: Clinical Notes 03-27-2022 to 12-01-2024 Kirstin Richardson APRN.MANAGER VIDEO - 03/27/2022 6:12 PM EST Note Date & Type Note Facility 12-01-2024 Radiology Diagnostic study note [facility] Imaging Services [address] [place], [place] [id number] Low Dose [address] Lung Screening MR#: [id number] Acct: [id number] Name: FERNY STOUT Rep #: [id number] : 1950 M 74 From: Blanche Gong MD PCP: Dr. Antonia Jeffers, DO Status: RE G CLI Study:Low Dose CT Lung Screening Date of Exam : 11/30/24 Exam# [id number] Ordering Dr: Gonzalez Jeffers DO PROCEDURE: LOW DOSE CT LUNG SCREENING 11/30/2024 REASON FOR EXAM: SMOKER TECHNIQUE: LOW DOSE CT LUNG SCREENING Coronal and Sagittal reconstruction series were provided. One or more dose reduction techniques were used (e.g., Automated exposure control, adjustment of the mA and/or kV according to patient size, use of iterative reconstruction technique). REFERENCE LINK: [facility] Lung-RADS RADIATION DOSE SUMMARY: CTDlvol: 3 mGy DLP: 117 mGycm COMPARISON: No FINDINGS: Central airways are patent. Mild bronchial wall thickening. Moderate emphysema. Small apical scarring. Slight dependent atelectasis. No consolidation, effusion, or pneumothorax. On the left, series 2, image 154, 6 mm pleural-based noncalcified lower lobe nodular density. On the right, calcified lower lobe nodule. Series 2, image 47, 4 mm noncalcified apical nodular, favoring nodular scarring. Unremarkable base of neck and axilla. Thoracic spine degeneration. Normal esophagus. Normal heart size. No acute vascular pathology. No acute chest wall findings. Diverticulosis. No acute upper abdominal findings. CT/Low Dose CT Lung Screening IMPRESSION: Bilateral noncalcified lung nodules. Lung-RADS Category: 3 Other Significant Findings: Reading Location: [facility]- CC: Dr. Antonia Jeffers DO ~ Dog Raiser: Signed [facility] 03-27-2022 Note HNO ID: [id number] Author: Kirstin Richardson APRN.MANAGER VIDEO Service: ? Author Type: Nurse Practitioner Type: Progress Notes Filed: 03/27/2022 6:19 PM Note Text: Subjective HPI HPI Ferny Stout is a 71 year old male who presents today for CC of diarrhea X1 2 days ago, upper abd discomfort 4/10. This started 2 days ago. Has tried nothing for relief. Symptoms are worsened by nothing. Risk factors lifted heavy books few days ago. Denies vomiting, blood in stool, fever. No sick exposures. Hx of appendix removal. .Patient presents with: Diarrhea: Diarrhea and stomach cramping x 2 days History reviewed. No pertinent past medical history. No past surgical history on file. ALLERGIES Patient has no known allergies. MEDICATIONS lisinopril (ZESTRIL, PRINIVIL) 20 mg tablet Take 20 mg by mouth twice daily. metFORMIN (GLUCOPHAGE) 500 mg tablet Take 500 mg by mouth twice daily. pravastatin (PRAVACHOL) 10 mg tablet Take 10 mg by mouth. JANUVIA 100 mg tablet Take 100 mg by mouth once daily. No family history on file. Social History Tobacco Use Smoking status: Every Day Types: Cigarettes Smokeless tobacco: Never ROS Objective Blood pressure 144/84, pulse 81, temperature 36.8 ?C (98.2 ?F), temperature source Tympanic, resp. rate 18, weight 87.5 kg (192 lb 12.8 oz), SpO2 96 %. Physical Exam Constitutional: General: He is not in acute distress. Appearance: He is not toxic-appearing or diaphoretic. HENT: Head: Normocephalic and atraumatic. Cardiovascular: Rate and Rhythm: Normal rate and regular rhythm. Heart sounds: Normal heart sounds, S1 normal and S2 normal. Pulmonary: Effort: Pulmonary effort is normal. Breath sounds: Normal breath sounds. Abdominal: General: Abdomen is flat. Bowel sounds are normal. Palpations: Abdomen is soft. There is no hepatomegaly or splenomegaly. Tenderness: There is abdominal tenderness (slight) in the right upper quadrant, epigastric area and left upper quadrant. There is no guarding. Neurological: Mental Status: He is alert and oriented to person, place, and time. Gait: Gait is intact. ASSESSMENT/PLAN: 1. Upper abdominal pain - ICD9: 789.09, ICD10: R10.10 Stable tonight, discussed bland diet, push fluids, f/u with pcp in AM. Go to ER for severe/worsening s/s tonight. Kirstin Richardson APRN.MANAGER VIDEO [facility] 03-27-2022 History of Present illness Narrative Subjective HPI HPI Ferny Stout is a 71 year old male who presents today for CC of diarrhea X1 2 days ago, upper abd discomfort 4/10. This started 2 days ago. Has tried nothing for relief. Symptoms are worsened by nothing. Risk factors lifted heavy books few days ago. Denies vomiting, blood in stool, fever. No sick exposures. Hx of appendix removal. .Patient presents with: Diarrhea: Diarrhea and stomach cramping x 2 days History reviewed. No pertinent past medical history. No past surgical history on file. ALLERGIES Patient has no known allergies. MEDICATIONS lisinopril (ZESTRIL, PRINIVIL) 20 mg tablet Take 20 mg by mouth twice daily. metFORMIN (GLUCOPHAGE) 500 mg tablet Take 500 mg by mouth twice daily. pravastatin (PRAVACHOL) 10 mg tablet Take 10 mg by mouth. JANUVIA 100 mg tablet Take 100 mg by mouth once daily. No family history on file. Social History Tobacco Use Smoking status: Every Day Types: Cigarettes Smokeless tobacco: Never ROS Objective Blood pressure 144/84, pulse 81, temperature 36.8 C (98.2 F), temperature source Tympanic, resp. rate 18, weight 87.5 kg (192 lb 12.8 oz), SpO2 96 %. Physical Exam Constitutional: General: He is not in acute distress. Appearance: He is not toxic-appearing or diaphoretic. HENT: Head: Normocephalic and atraumatic. Cardiovascular: Rate and Rhythm: Normal rate and regular rhythm. Heart sounds: Normal heart sounds, S1 normal and S2 normal. Pulmonary: Effort: Pulmonary effort is normal. Breath sounds: Normal breath sounds. Abdominal: General: Abdomen is flat. Bowel sounds are normal. Palpations: Abdomen is soft. There is no hepatomegaly or splenomegaly. Tenderness: There is abdominal tenderness (slight) in the right upper quadrant, epigastric area and left upper quadrant. There is no guarding. Neurological: Mental Status: He is alert and oriented to person, place, and time. Gait: Gait is intact. ASSESSMENT/PLAN: 1. Upper abdominal pain - ICD9: 789.09, ICD10: R10.10 Stable tonight, discussed bland diet, push fluids, f/u with pcp in AM. Go to ER for severe/worsening s/s tonight. Kirstin Richardson APRN.LINA documented in this encounter [facility] Evaluation note No assessment inform ation available [facility] Work Phone: Evaluation note Diagnosis Upper abdominal pain- Primary Abdominal pain, other specified site [facility] Name Dates Details Patient Instructions Indication:Diabetes mellitus type II, controlled, with no complications Start:03-Sep-2020 Instruction Type:Provider Instructions for Treatment How to Access Health Informa tion Online using Patient Portal and 3rd Libertarian Apps Indication:Diabetes mellitus type II, controlled, with no complications Start:03-Sep-2020 Instruction Type:Patient Education Patient Instructions Indication:BMI 25.0-25.9,adult Start:04-May-2020 Instruction Type:Provider Instructions for Treatment How to Access Health Informa tion Online using Patient Portal and 3rd [employer] Apps Indication:BMI 25.0-25.9,adult Start:04-May-2020 Instruction Type:Patient Education How to access health informa tion online Indication:BMI 25.0-25.9,adult Start:14-Mar-2020 Instruction Type:Patient Education How to access health informa tion online - Detail Indication:BMI 25.0-25.9,adult Start:14-Mar-2020 Instruction Type:Patient Education Patient Instructions Indication:BMI 25.0-25.9,adult Start:14-Mar-2020 Instruction Type:Provider Instructions for Treatment How to access health informa tion online Indication:Non-smoker Start:02-Feb-2020 Instruction Type:Patient Education How to access health informa tion online - Detail Indication:Non-smoker Start:02-Feb-2020 Instruction Type:Patient Education Patient Instructions Indication:Non-smoker Start:02-Feb-2020 Instruction Type:Provider Instructions for Treatment How to access health informa tion online Indication:Non-smoker Start:02-Nov-2019 Instruction Type:Patient Education How to access health informa tion online - Detail Indication:Non-smoker Start:02-Nov-2019 Instruction Type:Patient Education Patient Instructions Indication:Non-smoker Start:02-Nov-2019 Instruction Type:Provider Instructions for Treatment How to access health informa tion online Indication:BMI 26.0-26.9,adult Start:28-Apr-2019 Instruction Type:Patient Education How to access health informa tion online - Detail Indication:BMI 26.0-26.9,adult Start:28-Apr-2019 Instruction Type:Patient Education Patient Instructions Indication:BMI 26.0-26.9,adult Start:28-Apr-2019 Instruction Type:Provider Instructions for Treatment How to access health informa tion online Indication:Diabetes mellitus type II, controlled, with no complications Start:23-Dec-2018 Instruction Type:Patient Education How to access health informa tion online - Detail Indication:Diabetes mellitus type II, controlled, with no complications Start:23-Dec-2018 Instruction Type:Patient Education Patient Instructions Indication:Diabetes mellitus type II, controlled, with no complications Start:23-Dec-2018 Instruction Type:Provider Instructions for Treatment Patient Instructions Indication:Non-smoker Start:30-Aug-2018 Instruction Type:Provider Instructions for Treatment How to access health informa tion online - Detail Indication:Non-smoker Start:30-Aug-2018 Instruction Type:Patient Education How to access health informa tion online Indication:Non-smoker Start:30-Aug-2018 Instruction Type:Patient Education Patient Instructions Indication:Non-smoker Start:30-Aug-2018 Instruction Type:Provider Instructions for Treatment How to access health informa tion online Indication:Diabetes mellitus type II, controlled, with no complications Start:17-May-2018 Instruction Type:Patient Education How to access health informa tion online - Detail Indication:Diabetes mellitus type II, controlled, with no complications Start:17-May-2018 Instruction Type:Patient Education Patient Instructions Indication:Diabetes mellitus type II, controlled, with no complications Start:17-May-2018 Instruction Type:Provider Instructions for Treatment How to access health informa tion online Indication:BMI 25.0-25.9,adult Start:12-Feb-2018 Instruction Type:Patient Education How to access health informa tion online - Detail Indication:BMI 25.0-25.9,adult Start:12-Feb-2018 Instruction Type:Patient Education Patient Instructions Indication:BMI 25.0-25.9,adult Start:12-Feb-2018 Instruction Type:Provider Instructions for Treatment How to access health informa tion online Indication:Diabetes mellitus type II, controlled, with no complications Start:17-Jul-2017 Instruction Type:Patient Education How to access health informa tion online - Detail Indication:Diabetes mellitus type II, controlled, with no complications Start:17-Jul-2017 Instruction Type:Patient Education Patient Instructions Indication:Diabetes mellitus type II, controlled, with no complications Start:17-Jul-2017 Instruction Type:Provider Instructions for Treatment How to access health informa tion online Indication:Non-smoker Start:10-Jul-2017 Instruction Type:Patient Education How to access health informa tion online - Detail Indication:Non-smoker Start:10-Jul-2017 Instruction Type:Patient Education Patient Instructions Indication:Non-smoker Start:10-Jul-2017 Instruction Type:Provider Instructions for Treatment How to access health informa tion online Indication:Diabetes mellitus type II, controlled, with no complications Start:17-Apr-2017 Instruction Type:Patient Education How to access health informa tion online - Detail Indication:Diabetes mellitus type II, controlled, with no complications Start:17-Apr-2017 Instruction Type:Patient Education Patient Instructions Indication:Diabetes mellitus type II, controlled, with no complications Start:17-Apr-2017 Instruction Type:Provider Instructions for Treatment How to access health informa tion online Indication:Tobacco abuse, 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) Start:27-Mar-2017 Instruction Type:Patient Education How to access health informa tion online - Detail Indication:Tobacco abuse, 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) Start:27-Mar-2017 Instruction Type:Patient Education Patient Instructions Indication:Tobacco abuse, 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) Start:27-Mar-2017 Instruction Type:Provider Instructions for Treatment How to access health informa tion online Indication:Diabetes mellitus type II, controlled, with no complications Start:09-Oct-2016 Instruction Type:Patient Education How to access health informa tion online - Detail Indication:Diabetes mellitus type II, controlled, with no complications Start:09-Oct-2016 Instruction Type:Patient Education How to access health informa tion online - Detail Indication:Diabetes mellitus type II, controlled, with no complications Start:09-Oct-2016 Instruction Type:Patient Education Patient Instructions Indication:Diabetes mellitus type II, controlled, with no complications Start:09-Oct-2016 Instruction Type:Provider Instructions for Treatment How to access health informa tion online Indication:Diabetes mellitus type II, controlled, with no complications Start:11-Jun-2016 Instruction Type:Patient Education How to access health informa tion online - Detail Indication:Diabetes mellitus type II, controlled, with no complications Start:11-Jun-2016 Instruction Type:Patient Education Patient Instructions Indication:Diabetes mellitus type II, controlled, with no complications Start:11-Jun-2016 Instruction Type:Provider Instructions for Treatment How to access health informa tion online Indication:Body mass index (BMI) 24.0-24.9, adult Start:22-Apr-2016 Instruction Type:Patient Education How to access health informa tion online - Detail Indication:Body mass index (BMI) 24.0-24.9, adult Start:22-Apr-2016 Instruction Type:Patient Education Patient Instructions Indication:Body mass index (BMI) 24.0-24.9, adult Start:22-Apr-2016 Instruction Type:Provider Instructions for Treatment How to access health informa tion online Indication:Diabetes mellitus type II, controlled, with no complications Start:10-Mar-2016 Instruction Type:Patient Education How to access health informa tion online - Detail Indication:Diabetes mellitus type II, controlled, with no complications Start:10-Mar-2016 Instruction Type:Patient Education Patient Instructions Indication:Diabetes mellitus type II, controlled, with no complications Start:10-Mar-2016 Instruction Type:Provider Instructions for Treatment How to access health informa tion online Indication:Diabetes mellitus type II, controlled, with no complications Start:16-Jul-2015 Instruction Type:Patient Education How to access health informa tion online - Detail Indication:Diabetes mellitus type II, controlled, with no complications Start:16-Jul-2015 Instruction Type:Patient Education Patient Instructions Indication:Diabetes mellitus type II, controlled, with no complications Start:16-Jul-2015 Instruction Type:Provider Instructions for Treatment How to access health informa tion online Indication:Diabetes mellitus type II, controlled, with no complications Start:26-Dec-2014 Instruction Type:Patient Education How to access health informa tion online - Detail Indication:Diabetes mellitus type II, controlled, with no complications Start:26-Dec-2014 Instruction Type:Patient Education Patient Instructions Indication:Diabetes mellitus type II, controlled, with no complications Start:26-Dec-2014 Instruction Type:Provider Instructions for Treatment How to access health informa tion online Indication:Diabetes mellitus type II, controlled, with no complications Start:29-Aug-2014 Instruction Type:Patient Education How to access health informa tion online - Detail Indication:Diabetes mellitus type II, controlled, with no complications Start:29-Aug-2014 Instruction Type:Patient Education Patient Instructions Indication:Diabetes mellitus type II, controlled, with no complications Start:29-Aug-2014 Instruction Type:Provider Instructions for Treatment Weight check (V05.4) Indication:Weight loss Start:08-Jun-2014 Instruction Type:Nursing Car e Education How to access health informa tion online Indication:Diabetes mellitus type II, controlled, with no complications Start:27-Apr-2014 Instruction Type:Patient Education How to access health informa tion online - Detail Indication:Diabetes mellitus type II, controlled, with no complications Start:27-Apr-2014 Instruction Type:Patient Education Patient Instructions Indication:Diabetes mellitus type II, controlled, with no complications Start:27-Apr-2014 Instruction Type:Provider Instructions for Treatment How to access health informa tion online - Detail Indication:Diabetes mellitus type II, controlled, with no complications Start:09-Dec-2013 Instruction Type:Patient Education Patient Instructions Indication:Hypocalcemia Start:07-Jan-2013 Instruction Type:Provider Instructions for Treatment Patient Instructions Indication:Diabetes mellitus type II, controlled, with no complications Start:08-Oct-2012 Instruction Type:Provider Instructions for Treatment [facility]; [facility] Work Phone: Instructions* Name Dates Details Patient Instructions Indication:Diabetes mellitus type II, controlled, with no complications Start:08-May-2021 Instruction Type:Provider Instructions for Treatment How to Access Health Informa tion Online using Patient Portal and 3rd [employer] Apps Indication:Diabetes mellitus type II, controlled, with no complications Start:08-May-2021 Instruction Type:Patient Education Patient Instructions Indication:Diabetes mellitus type II, controlled, with no complications Start:07-Jan-2021 Instruction Type:Provider Instructions for Treatment How to Access Health Informa tion Online using Patient Portal and [employer]rd [employer] Apps Indication:Diabetes mellitus type II, controlled, with no complications Start:07-Jan-2021 Instruction Type:Patient Education Patient Instructions Indication:Diabetes mellitus type II, controlled, with no complications Start:03-Sep-2020 Instruction Type:Provider Instructions for Treatment How to Access Health Informa tion Online using Patient Portal and [employer]rd [employer] Apps Indication:Diabetes mellitus type II, controlled, with no complications Start:03-Sep-2020 Instruction Type:Patient Education Patient Instructions Indication:BMI 25.0-25.9,adult Start:04-May-2020 Instruction Type:Provider Instructions for Treatment How to Access Health Informa tion Online using Patient Portal and [employer]rd [employer] Apps Indication:BMI 25.0-25.9,adult Start:04-May-2020 Instruction Type:Patient Education How to access health informa tion online Indication:BMI 25.0-25.9,adult Start:14-Mar-2020 Instruction Type:Patient Education How to access health informa tion online - Detail Indication:BMI 25.0-25.9,adult Start:14-Mar-2020 Instruction Type:Patient Education Patient Instructions Indication:BMI 25.0-25.9,adult Start:14-Mar-2020 Instruction Type:Provider Instructions for Treatment How to access health informa tion online Indication:Non-smoker Start:02-Feb-2020 Instruction Type:Patient Education How to access health informa tion online - Detail Indication:Non-smoker Start:02-Feb-2020 Instruction Type:Patient Education Patient Instructions Indication:Non-smoker Start:02-Feb-2020 Instruction Type:Provider Instructions for Treatment How to access health informa tion online Indication:Non-smoker Start:02-Nov-2019 Instruction Type:Patient Education How to access health informa tion online - Detail Indication:Non-smoker Start:02-Nov-2019 Instruction Type:Patient Education Patient Instructions Indication:Non-smoker Start:02-Nov-2019 Instruction Type:Provider Instructions for Treatment How to access health informa tion online Indication:BMI 26.0-26.9,adult Start:28-Apr-2019 Instruction Type:Patient Education How to access health informa tion online - Detail Indication:BMI 26.0-26.9,adult Start:28-Apr-2019 Instruction Type:Patient Education Patient Instructions Indication:BMI 26.0-26.9,adult Start:28-Apr-2019 Instruction Type:Provider Instructions for Treatment How to access health informa tion online Indication:Diabetes mellitus type II, controlled, with no complications Start:23-Dec-2018 Instruction Type:Patient Education How to access health informa tion online - Detail Indication:Diabetes mellitus type II, controlled, with no complications Start:23-Dec-2018 Instruction Type:Patient Education Patient Instructions Indication:Diabetes mellitus type II, controlled, with no complications Start:23-Dec-2018 Instruction Type:Provider Instructions for Treatment Patient Instructions Indication:Non-smoker Start:30-Aug-2018 Instruction Type:Provider Instructions for Treatment How to access health informa tion online - Detail Indication:Non-smoker Start:30-Aug-2018 Instruction Type:Patient Education How to access health informa tion online Indication:Non-smoker Start:30-Aug-2018 Instruction Type:Patient Education Patient Instructions Indication:Non-smoker Start:30-Aug-2018 Instruction Type:Provider Instructions for Treatment How to access health informa tion online Indication:Diabetes mellitus type II, controlled, with no complications Start:17-May-2018 Instruction Type:Patient Education How to access health informa tion online - Detail Indication:Diabetes mellitus type II, controlled, with no complications Start:17-May-2018 Instruction Type:Patient Education Patient Instructions Indication:Diabetes mellitus type II, controlled, with no complications Start:17-May-2018 Instruction Type:Provider Instructions for Treatment How to access health informa tion online Indication:BMI 25.0-25.9,adult Start:12-Feb-2018 Instruction Type:Patient Education How to access health informa tion online - Detail Indication:BMI 25.0-25.9,adult Start:12-Feb-2018 Instruction Type:Patient Education Patient Instructions Indication:BMI 25.0-25.9,adult Start:12-Feb-2018 Instruction Type:Provider Instructions for Treatment How to access health informa tion online Indication:Diabetes mellitus type II, controlled, with no complications Start:17-Jul-2017 Instruction Type:Patient Education How to access health informa tion online - Detail Indication:Diabetes mellitus type II, controlled, with no complications Start:17-Jul-2017 Instruction Type:Patient Education Patient Instructions Indication:Diabetes mellitus type II, controlled, with no complications Start:17-Jul-2017 Instruction Type:Provider Instructions for Treatment How to access health informa tion online Indication:Non-smoker Start:10-Jul-2017 Instruction Type:Patient Education How to access health informa tion online - Detail Indication:Non-smoker Start:10-Jul-2017 Instruction Type:Patient Education Patient Instructions Indication:Non-smoker Start:10-Jul-2017 Instruction Type:Provider Instructions for Treatment How to access health informa tion online Indication:Diabetes mellitus type II, controlled, with no complications Start:17-Apr-2017 Instruction Type:Patient Education How to access health informa tion online - Detail Indication:Diabetes mellitus type II, controlled, with no complications Start:17-Apr-2017 Instruction Type:Patient Education Patient Instructions Indication:Diabetes mellitus type II, controlled, with no complications Start:17-Apr-2017 Instruction Type:Provider Instructions for Treatment How to access health informa tion online Indication:Tobacco abuse, 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) Start:27-Mar-2017 Instruction Type:Patient Education How to access health informa tion online - Detail Indication:Tobacco abuse, 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) Start:27-Mar-2017 Instruction Type:Patient Education Patient Instructions Indication:Tobacco abuse, 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) Start:27-Mar-2017 Instruction Type:Provider Instructions for Treatment How to access health informa tion online Indication:Diabetes mellitus type II, controlled, with no complications Start:09-Oct-2016 Instruction Type:Patient Education How to access health informa tion online - Detail Indication:Diabetes mellitus type II, controlled, with no complications Start:09-Oct-2016 Instruction Type:Patient Education How to access health informa tion online - Detail Indication:Diabetes mellitus type II, controlled, with no complications Start:09-Oct-2016 Instruction Type:Patient Education Patient Instructions Indication:Diabetes mellitus type II, controlled, with no complications Start:09-Oct-2016 Instruction Type:Provider Instructions for Treatment How to access health informa tion online Indication:Diabetes mellitus type II, controlled, with no complications Start:11-Jun-2016 Instruction Type:Patient Education How to access health informa tion online - Detail Indication:Diabetes mellitus type II, controlled, with no complications Start:11-Jun-2016 Instruction Type:Patient Education Patient Instructions Indication:Diabetes mellitus type II, controlled, with no complications Start:11-Jun-2016 Instruction Type:Provider Instructions for Treatment How to access health informa tion online Indication:Body mass index (BMI) 24.0-24.9, adult Start:22-Apr-2016 Instruction Type:Patient Education How to access health informa tion online - Detail Indication:Body mass index (BMI) 24.0-24.9, adult Start:22-Apr-2016 Instruction Type:Patient Education Patient Instructions Indication:Body mass index (BMI) 24.0-24.9, adult Start:22-Apr-2016 Instruction Type:Provider Instructions for Treatment How to access health informa tion online Indication:Diabetes mellitus type II, controlled, with no complications Start:10-Mar-2016 Instruction Type:Patient Education How to access health informa tion online - Detail Indication:Diabetes mellitus type II, controlled, with no complications Start:10-Mar-2016 Instruction Type:Patient Education Patient Instructions Indication:Diabetes mellitus type II, controlled, with no complications Start:10-Mar-2016 Instruction Type:Provider Instructions for Treatment How to access health informa tion online Indication:Diabetes mellitus type II, controlled, with no complications Start:16-Jul-2015 Instruction Type:Patient Education How to access health informa tion online - Detail Indication:Diabetes mellitus type II, controlled, with no complications Start:16-Jul-2015 Instruction Type:Patient Education Patient Instructions Indication:Diabetes mellitus type II, controlled, with no complications Start:16-Jul-2015 Instruction Type:Provider Instructions for Treatment How to access health informa tion online Indication:Diabetes mellitus type II, controlled, with no complications Start:26-Dec-2014 Instruction Type:Patient Education How to access health informa tion online - Detail Indication:Diabetes mellitus type II, controlled, with no complications Start:26-Dec-2014 Instruction Type:Patient Education Patient Instructions Indication:Diabetes mellitus type II, controlled, with no complications Start:26-Dec-2014 Instruction Type:Provider Instructions for Treatment How to access health informa tion online Indication:Diabetes mellitus type II, controlled, with no complications Start:29-Aug-2014 Instruction Type:Patient Education How to access health informa tion online - Detail Indication:Diabetes mellitus type II, controlled, with no complications Start:29-Aug-2014 Instruction Type:Patient Education Patient Instructions Indication:Diabetes mellitus type II, controlled, with no complications Start:29-Aug-2014 Instruction Type:Provider Instructions for Treatment Weight check (V05.4) Indication:Weight loss Start:08-Jun-2014 Instruction Type:Nursing Car e Education How to access health informa tion online Indication:Diabetes mellitus type II, controlled, with no complications Start:27-Apr-2014 Instruction Type:Patient Education How to access health informa tion online - Detail Indication:Diabetes mellitus type II, controlled, with no complications Start:27-Apr-2014 Instruction Type:Patient Education Patient Instructions Indication:Diabetes mellitus type II, controlled, with no complications Start:27-Apr-2014 Instruction Type:Provider Instructions for Treatment How to access health informa tion online - Detail Indication:Diabetes mellitus type II, controlled, with no complications Start:09-Dec-2013 Instruction Type:Patient Education Patient Instructions Indication:Hypocalcemia Start:07-Jan-2013 Instruction Type:Provider Instructions for Treatment Patient Instructions Indication:Diabetes mellitus type II, controlled, with no complications Start:08-Oct-2012 Instruction Type:Provider Instructions for Treatment [facility]; [facility] Work Phone: Instructions* Name Dates Details Patient Instructions Indication:Diabetes mellitus type II, controlled, with no complications Start:08-May-2021 Instruction Type:Provider Instructions for Treatment How to Access Health Informa tion Online using Patient Portal and [employer]rd [employer] Apps Indication:Diabetes mellitus type II, controlled, with no complications Start:08-May-2021 Instruction Type:Patient Education Patient Instructions Indication:Diabetes mellitus type II, controlled, with no complications Start:07-Jan-2021 Instruction Type:Provider Instructions for Treatment How to Access Health Informa tion Online using Patient Portal and [employer]rd [employer] Apps Indication:Diabetes mellitus type II, controlled, with no complications Start:07-Jan-2021 Instruction Type:Patient Education Patient Instructions Indication:Diabetes mellitus type II, controlled, with no complications Start:03-Sep-2020 Instruction Type:Provider Instructions for Treatment How to Access Health Informa tion Online using Patient Portal and [employer]rd [employer] Apps Indication:Diabetes mellitus type II, controlled, with no complications Start:03-Sep-2020 Instruction Type:Patient Education Patient Instructions Indication:BMI 25.0-25.9,adult Start:04-May-2020 Instruction Type:Provider Instructions for Treatment How to Access Health Informa tion Online using Patient Portal and [employer]rd [employer] Apps Indication:BMI 25.0-25.9,adult Start:04-May-2020 Instruction Type:Patient Education How to access health informa tion online Indication:BMI 25.0-25.9,adult Start:14-Mar-2020 Instruction Type:Patient Education How to access health informa tion online - Detail Indication:BMI 25.0-25.9,adult Start:14-Mar-2020 Instruction Type:Patient Education Patient Instructions Indication:BMI 25.0-25.9,adult Start:14-Mar-2020 Instruction Type:Provider Instructions for Treatment How to access health informa tion online Indication:Non-smoker Start:02-Feb-2020 Instruction Type:Patient Education How to access health informa tion online - Detail Indication:Non-smoker Start:02-Feb-2020 Instruction Type:Patient Education Patient Instructions Indication:Non-smoker Start:02-Feb-2020 Instruction Type:Provider Instructions for Treatment How to access health informa tion online Indication:Non-smoker Start:02-Nov-2019 Instruction Type:Patient Education How to access health informa tion online - Detail Indication:Non-smoker Start:02-Nov-2019 Instruction Type:Patient Education Patient Instructions Indication:Non-smoker Start:02-Nov-2019 Instruction Type:Provider Instructions for Treatment How to access health informa tion online Indication:BMI 26.0-26.9,adult Start:28-Apr-2019 Instruction Type:Patient Education How to access health informa tion online - Detail Indication:BMI 26.0-26.9,adult Start:28-Apr-2019 Instruction Type:Patient Education Patient Instructions Indication:BMI 26.0-26.9,adult Start:28-Apr-2019 Instruction Type:Provider Instructions for Treatment How to access health informa tion online Indication:Diabetes mellitus type II, controlled, with no complications Start:23-Dec-2018 Instruction Type:Patient Education How to access health informa tion online - Detail Indication:Diabetes mellitus type II, controlled, with no complications Start:23-Dec-2018 Instruction Type:Patient Education Patient Instructions Indication:Diabetes mellitus type II, controlled, with no complications Start:23-Dec-2018 Instruction Type:Provider Instructions for Treatment Patient Instructions Indication:Non-smoker Start:30-Aug-2018 Instruction Type:Provider Instructions for Treatment How to access health informa tion online - Detail Indication:Non-smoker Start:30-Aug-2018 Instruction Type:Patient Education How to access health informa tion online Indication:Non-smoker Start:30-Aug-2018 Instruction Type:Patient Education Patient Instructions Indication:Non-smoker Start:30-Aug-2018 Instruction Type:Provider Instructions for Treatment How to access health informa tion online Indication:Diabetes mellitus type II, controlled, with no complications Start:17-May-2018 Instruction Type:Patient Education How to access health informa tion online - Detail Indication:Diabetes mellitus type II, controlled, with no complications Start:17-May-2018 Instruction Type:Patient Education Patient Instructions Indication:Diabetes mellitus type II, controlled, with no complications Start:17-May-2018 Instruction Type:Provider Instructions for Treatment How to access health informa tion online Indication:BMI 25.0-25.9,adult Start:12-Feb-2018 Instruction Type:Patient Education How to access health informa tion online - Detail Indication:BMI 25.0-25.9,adult Start:12-Feb-2018 Instruction Type:Patient Education Patient Instructions Indication:BMI 25.0-25.9,adult Start:12-Feb-2018 Instruction Type:Provider Instructions for Treatment How to access health informa tion online Indication:Diabetes mellitus type II, controlled, with no complications Start:17-Jul-2017 Instruction Type:Patient Education How to access health informa tion online - Detail Indication:Diabetes mellitus type II, controlled, with no complications Start:17-Jul-2017 Instruction Type:Patient Education Patient Instructions Indication:Diabetes mellitus type II, controlled, with no complications Start:17-Jul-2017 Instruction Type:Provider Instructions for Treatment How to access health informa tion online Indication:Non-smoker Start:10-Jul-2017 Instruction Type:Patient Education How to access health informa tion online - Detail Indication:Non-smoker Start:10-Jul-2017 Instruction Type:Patient Education Patient Instructions Indication:Non-smoker Start:10-Jul-2017 Instruction Type:Provider Instructions for Treatment How to access health informa tion online Indication:Diabetes mellitus type II, controlled, with no complications Start:17-Apr-2017 Instruction Type:Patient Education How to access health informa tion online - Detail Indication:Diabetes mellitus type II, controlled, with no complications Start:17-Apr-2017 Instruction Type:Patient Education Patient Instructions Indication:Diabetes mellitus type II, controlled, with no complications Start:17-Apr-2017 Instruction Type:Provider Instructions for Treatment How to access health informa tion online Indication:Tobacco abuse, 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) Start:27-Mar-2017 Instruction Type:Patient Education How to access health informa tion online - Detail Indication:Tobacco abuse, 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) Start:27-Mar-2017 Instruction Type:Patient Education Patient Instructions Indication:Tobacco abuse, 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) Start:27-Mar-2017 Instruction Type:Provider Instructions for Treatment How to access health informa tion online Indication:Diabetes mellitus type II, controlled, with no complications Start:09-Oct-2016 Instruction Type:Patient Education How to access health informa tion online - Detail Indication:Diabetes mellitus type II, controlled, with no complications Start:09-Oct-2016 Instruction Type:Patient Education How to access health informa tion online - Detail Indication:Diabetes mellitus type II, controlled, with no complications Start:09-Oct-2016 Instruction Type:Patient Education Patient Instructions Indication:Diabetes mellitus type II, controlled, with no complications Start:09-Oct-2016 Instruction Type:Provider Instructions for Treatment How to access health informa tion online Indication:Diabetes mellitus type II, controlled, with no complications Start:11-Jun-2016 Instruction Type:Patient Education How to access health informa tion online - Detail Indication:Diabetes mellitus type II, controlled, with no complications Start:11-Jun-2016 Instruction Type:Patient Education Patient Instructions Indication:Diabetes mellitus type II, controlled, with no complications Start:11-Jun-2016 Instruction Type:Provider Instructions for Treatment How to access health informa tion online Indication:Body mass index (BMI) 24.0-24.9, adult Start:22-Apr-2016 Instruction Type:Patient Education How to access health informa tion online - Detail Indication:Body mass index (BMI) 24.0-24.9, adult Start:22-Apr-2016 Instruction Type:Patient Education Patient Instructions Indication:Body mass index (BMI) 24.0-24.9, adult Start:22-Apr-2016 Instruction Type:Provider Instructions for Treatment How to access health informa tion online Indication:Diabetes mellitus type II, controlled, with no complications Start:10-Mar-2016 Instruction Type:Patient Education How to access health informa tion online - Detail Indication:Diabetes mellitus type II, controlled, with no complications Start:10-Mar-2016 Instruction Type:Patient Education Patient Instructions Indication:Diabetes mellitus type II, controlled, with no complications Start:10-Mar-2016 Instruction Type:Provider Instructions for Treatment How to access health informa tion online Indication:Diabetes mellitus type II, controlled, with no complications Start:16-Jul-2015 Instruction Type:Patient Education How to access health informa tion online - Detail Indication:Diabetes mellitus type II, controlled, with no complications Start:16-Jul-2015 Instruction Type:Patient Education Patient Instructions Indication:Diabetes mellitus type II, controlled, with no complications Start:16-Jul-2015 Instruction Type:Provider Instructions for Treatment How to access health informa tion online Indication:Diabetes mellitus type II, controlled, with no complications Start:26-Dec-2014 Instruction Type:Patient Education How to access health informa tion online - Detail Indication:Diabetes mellitus type II, controlled, with no complications Start:26-Dec-2014 Instruction Type:Patient Education Patient Instructions Indication:Diabetes mellitus type II, controlled, with no complications Start:26-Dec-2014 Instruction Type:Provider Instructions for Treatment How to access health informa tion online Indication:Diabetes mellitus type II, controlled, with no complications Start:29-Aug-2014 Instruction Type:Patient Education How to access health informa tion online - Detail Indication:Diabetes mellitus type II, controlled, with no complications Start:29-Aug-2014 Instruction Type:Patient Education Patient Instructions Indication:Diabetes mellitus type II, controlled, with no complications Start:29-Aug-2014 Instruction Type:Provider Instructions for Treatment Weight check (V05.4) Indication:Weight loss Start:08-Jun-2014 Instruction Type:Nursing Car e Education How to access health informa tion online Indication:Diabetes mellitus type II, controlled, with no complications Start:27-Apr-2014 Instruction Type:Patient Education How to access health informa tion online - Detail Indication:Diabetes mellitus type II, controlled, with no complications Start:27-Apr-2014 Instruction Type:Patient Education Patient Instructions Indication:Diabetes mellitus type II, controlled, with no complications Start:27-Apr-2014 Instruction Type:Provider Instructions for Treatment How to access health informa tion online - Detail Indication:Diabetes mellitus type II, controlled, with no complications Start:09-Dec-2013 Instruction Type:Patient Education Patient Instructions Indication:Hypocalcemia Start:07-Jan-2013 Instruction Type:Provider Instructions for Treatment Patient Instructions Indication:Diabetes mellitus type II, controlled, with no complications Start:08-Oct-2012 Instruction Type:Provider Instructions for Treatment [facility]; [facility] Work Phone: Instructions* Name Dates Details Patient Instructions Indication:BMI 26.0-26.9,adult Start:07-Aug-2021 Instruction Type:Provider Instructions for Treatment How to Access Health Informa tion Online using Patient Portal and [employer]rd [employer] Indication:BMI 26.0-26.9,adult Start:07-Aug-2021 Instruction Type:Patient Education Patient Instructions Indication:Diabetes mellitus type II, controlled, with no complications Start:08-May-2021 Instruction Type:Provider Instructions for Treatment How to Access Health Informa tion Online using Patient Portal and [employer]rd [employer] Apps Indication:Diabetes mellitus type II, controlled, with no complications Start:08-May-2021 Instruction Type:Patient Education Patient Instructions Indication:Diabetes mellitus type II, controlled, with no complications Start:07-Jan-2021 Instruction Type:Provider Instructions for Treatment How to Access Health Informa tion Online using Patient Portal and [employer]rd [employer] Apps Indication:Diabetes mellitus type II, controlled, with no complications Start:07-Jan-2021 Instruction Type:Patient Education Patient Instructions Indication:Diabetes mellitus type II, controlled, with no complications Start:03-Sep-2020 Instruction Type:Provider Instructions for Treatment How to Access Health Informa tion Online using Patient Portal and [employer]rd [employer] Apps Indication:Diabetes mellitus type II, controlled, with no complications Start:03-Sep-2020 Instruction Type:Patient Education Patient Instructions Indication:BMI 25.0-25.9,adult Start:04-May-2020 Instruction Type:Provider Instructions for Treatment How to Access Health Informa tion Online using Patient Portal and [employer]rd [employer] Apps Indication:BMI 25.0-25.9,adult Start:04-May-2020 Instruction Type:Patient Education How to access health informa tion online Indication:BMI 25.0-25.9,adult Start:14-Mar-2020 Instruction Type:Patient Education How to access health informa tion online - Detail Indication:BMI 25.0-25.9,adult Start:14-Mar-2020 Instruction Type:Patient Education Patient Instructions Indication:BMI 25.0-25.9,adult Start:14-Mar-2020 Instruction Type:Provider Instructions for Treatment How to access health informa tion online Indication:Non-smoker Start:02-Feb-2020 Instruction Type:Patient Education How to access health informa tion online - Detail Indication:Non-smoker Start:02-Feb-2020 Instruction Type:Patient Education Patient Instructions Indication:Non-smoker Start:02-Feb-2020 Instruction Type:Provider Instructions for Treatment How to access health informa tion online Indication:Non-smoker Start:02-Nov-2019 Instruction Type:Patient Education How to access health informa tion online - Detail Indication:Non-smoker Start:02-Nov-2019 Instruction Type:Patient Education Patient Instructions Indication:Non-smoker Start:02-Nov-2019 Instruction Type:Provider Instructions for Treatment How to access health informa tion online Indication:BMI 26.0-26.9,adult Start:28-Apr-2019 Instruction Type:Patient Education How to access health informa tion online - Detail Indication:BMI 26.0-26.9,adult Start:28-Apr-2019 Instruction Type:Patient Education Patient Instructions Indication:BMI 26.0-26.9,adult Start:28-Apr-2019 Instruction Type:Provider Instructions for Treatment How to access health informa tion online Indication:Diabetes mellitus type II, controlled, with no complications Start:23-Dec-2018 Instruction Type:Patient Education How to access health informa tion online - Detail Indication:Diabetes mellitus type II, controlled, with no complications Start:23-Dec-2018 Instruction Type:Patient Education Patient Instructions Indication:Diabetes mellitus type II, controlled, with no complications Start:23-Dec-2018 Instruction Type:Provider Instructions for Treatment Patient Instructions Indication:Non-smoker Start:30-Aug-2018 Instruction Type:Provider Instructions for Treatment How to access health informa tion online - Detail Indication:Non-smoker Start:30-Aug-2018 Instruction Type:Patient Education How to access health informa tion online Indication:Non-smoker Start:30-Aug-2018 Instruction Type:Patient Education Patient Instructions Indication:Non-smoker Start:30-Aug-2018 Instruction Type:Provider Instructions for Treatment How to access health informa tion online Indication:Diabetes mellitus type II, controlled, with no complications Start:17-May-2018 Instruction Type:Patient Education How to access health informa tion online - Detail Indication:Diabetes mellitus type II, controlled, with no complications Start:17-May-2018 Instruction Type:Patient Education Patient Instructions Indication:Diabetes mellitus type II, controlled, with no complications Start:17-May-2018 Instruction Type:Provider Instructions for Treatment How to access health informa tion online Indication:BMI 25.0-25.9,adult Start:12-Feb-2018 Instruction Type:Patient Education How to access health informa tion online - Detail Indication:BMI 25.0-25.9,adult Start:12-Feb-2018 Instruction Type:Patient Education Patient Instructions Indication:BMI 25.0-25.9,adult Start:12-Feb-2018 Instruction Type:Provider Instructions for Treatment How to access health informa tion online Indication:Diabetes mellitus type II, controlled, with no complications Start:17-Jul-2017 Instruction Type:Patient Education How to access health informa tion online - Detail Indication:Diabetes mellitus type II, controlled, with no complications Start:17-Jul-2017 Instruction Type:Patient Education Patient Instructions Indication:Diabetes mellitus type II, controlled, with no complications Start:17-Jul-2017 Instruction Type:Provider Instructions for Treatment How to access health informa tion online Indication:Non-smoker Start:10-Jul-2017 Instruction Type:Patient Education How to access health informa tion online - Detail Indication:Non-smoker Start:10-Jul-2017 Instruction Type:Patient Education Patient Instructions Indication:Non-smoker Start:10-Jul-2017 Instruction Type:Provider Instructions for Treatment How to access health informa tion online Indication:Diabetes mellitus type II, controlled, with no complications Start:17-Apr-2017 Instruction Type:Patient Education How to access health informa tion online - Detail Indication:Diabetes mellitus type II, controlled, with no complications Start:17-Apr-2017 Instruction Type:Patient Education Patient Instructions Indication:Diabetes mellitus type II, controlled, with no complications Start:17-Apr-2017 Instruction Type:Provider Instructions for Treatment How to access health informa tion online Indication:Tobacco abuse, 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) Start:27-Mar-2017 Instruction Type:Patient Education How to access health informa tion online - Detail Indication:Tobacco abuse, 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) Start:27-Mar-2017 Instruction Type:Patient Education Patient Instructions Indication:Tobacco abuse, 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) Start:27-Mar-2017 Instruction Type:Provider Instructions for Treatment How to access health informa tion online Indication:Diabetes mellitus type II, controlled, with no complications Start:09-Oct-2016 Instruction Type:Patient Education How to access health informa tion online - Detail Indication:Diabetes mellitus type II, controlled, with no complications Start:09-Oct-2016 Instruction Type:Patient Education How to access health informa tion online - Detail Indication:Diabetes mellitus type II, controlled, with no complications Start:09-Oct-2016 Instruction Type:Patient Education Patient Instructions Indication:Diabetes mellitus type II, controlled, with no complications Start:09-Oct-2016 Instruction Type:Provider Instructions for Treatment How to access health informa tion online Indication:Diabetes mellitus type II, controlled, with no complications Start:11-Jun-2016 Instruction Type:Patient Education How to access health informa tion online - Detail Indication:Diabetes mellitus type II, controlled, with no complications Start:11-Jun-2016 Instruction Type:Patient Education Patient Instructions Indication:Diabetes mellitus type II, controlled, with no complications Start:11-Jun-2016 Instruction Type:Provider Instructions for Treatment How to access health informa tion online Indication:Body mass index (BMI) 24.0-24.9, adult Start:22-Apr-2016 Instruction Type:Patient Education How to access health informa tion online - Detail Indication:Body mass index (BMI) 24.0-24.9, adult Start:22-Apr-2016 Instruction Type:Patient Education Patient Instructions Indication:Body mass index (BMI) 24.0-24.9, adult Start:22-Apr-2016 Instruction Type:Provider Instructions for Treatment How to access health informa tion online Indication:Diabetes mellitus type II, controlled, with no complications Start:10-Mar-2016 Instruction Type:Patient Education How to access health informa tion online - Detail Indication:Diabetes mellitus type II, controlled, with no complications Start:10-Mar-2016 Instruction Type:Patient Education Patient Instructions Indication:Diabetes mellitus type II, controlled, with no complications Start:10-Mar-2016 Instruction Type:Provider Instructions for Treatment How to access health informa tion online Indication:Diabetes mellitus type II, controlled, with no complications Start:16-Jul-2015 Instruction Type:Patient Education How to access health informa tion online - Detail Indication:Diabetes mellitus type II, controlled, with no complications Start:16-Jul-2015 Instruction Type:Patient Education Patient Instructions Indication:Diabetes mellitus type II, controlled, with no complications Start:16-Jul-2015 Instruction Type:Provider Instructions for Treatment How to access health informa tion online Indication:Diabetes mellitus type II, controlled, with no complications Start:26-Dec-2014 Instruction Type:Patient Education How to access health informa tion online - Detail Indication:Diabetes mellitus type II, controlled, with no complications Start:26-Dec-2014 Instruction Type:Patient Education Patient Instructions Indication:Diabetes mellitus type II, controlled, with no complications Start:26-Dec-2014 Instruction Type:Provider Instructions for Treatment How to access health informa tion online Indication:Diabetes mellitus type II, controlled, with no complications Start:29-Aug-2014 Instruction Type:Patient Education How to access health informa tion online - Detail Indication:Diabetes mellitus type II, controlled, with no complications Start:29-Aug-2014 Instruction Type:Patient Education Patient Instructions Indication:Diabetes mellitus type II, controlled, with no complications Start:29-Aug-2014 Instruction Type:Provider Instructions for Treatment Weight check (V05.4) Indication:Weight loss Start:08-Jun-2014 Instruction Type:Nursing Car e Education How to access health informa tion online Indication:Diabetes mellitus type II, controlled, with no complications Start:27-Apr-2014 Instruction Type:Patient Education How to access health informa tion online - Detail Indication:Diabetes mellitus type II, controlled, with no complications Start:27-Apr-2014 Instruction Type:Patient Education Patient Instructions Indication:Diabetes mellitus type II, controlled, with no complications Start:27-Apr-2014 Instruction Type:Provider Instructions for Treatment How to access health informa tion online - Detail Indication:Diabetes mellitus type II, controlled, with no complications Start:09-Dec-2013 Instruction Type:Patient Education Patient Instructions Indication:Hypocalcemia Start:07-Jan-2013 Instruction Type:Provider Instructions for Treatment Patient Instructions Indication:Diabetes mellitus type II, controlled, with no complications Start:08-Oct-2012 Instruction Type:Provider Instructions for Treatment [facility]; [facility] Work Phone: Instructions* Name Dates Details Patient Instructions Indication:Diabetes mellitus type II, controlled, with no complications Start:11-Nov-2021 Instruction Type:Provider Instructions for Treatment How to Access Health Informa tion Online using Patient Portal and [employer]rd [employer] Apps Indication:Diabetes mellitus type II, controlled, with no complications Start:11-Nov-2021 Instruction Type:Patient Education Patient Instructions Indication:BMI 26.0-26.9,adult Start:07-Aug-2021 Instruction Type:Provider Instructions for Treatment How to Access Health Informa tion Online using Patient Portal and [employer]rd [employer] Apps Indication:BMI 26.0-26.9,adult Start:07-Aug-2021 Instruction Type:Patient Education Patient Instructions Indication:Diabetes mellitus type II, controlled, with no complications Start:08-May-2021 Instruction Type:Provider Instructions for Treatment How to Access Health Informa tion Online using Patient Portal and [employer]rd [employer] Apps Indication:Diabetes mellitus type II, controlled, with no complications Start:08-May-2021 Instruction Type:Patient Education Patient Instructions Indication:Diabetes mellitus type II, controlled, with no complications Start:07-Jan-2021 Instruction Type:Provider Instructions for Treatment How to Access Health Informa tion Online using Patient Portal and [employer]rd [employer] Apps Indication:Diabetes mellitus type II, controlled, with no complications Start:07-Jan-2021 Instruction Type:Patient Education Patient Instructions Indication:Diabetes mellitus type II, controlled, with no complications Start:03-Sep-2020 Instruction Type:Provider Instructions for Treatment How to Access Health Informa tion Online using Patient Portal and [employer]rd [employer] Apps Indication:Diabetes mellitus type II, controlled, with no complications Start:03-Sep-2020 Instruction Type:Patient Education Patient Instructions Indication:BMI 25.0-25.9,adult Start:04-May-2020 Instruction Type:Provider Instructions for Treatment How to Access Health Informa tion Online using Patient Portal and [employer]rd [employer] Indication:BMI 25.0-25.9,adult Start:04-May-2020 Instruction Type:Patient Education How to access health informa tion online Indication:BMI 25.0-25.9,adult Start:14-Mar-2020 Instruction Type:Patient Education How to access health informa tion online - Detail Indication:BMI 25.0-25.9,adult Start:14-Mar-2020 Instruction Type:Patient Education Patient Instructions Indication:BMI 25.0-25.9,adult Start:14-Mar-2020 Instruction Type:Provider Instructions for Treatment How to access health informa tion online Indication:Non-smoker Start:02-Feb-2020 Instruction Type:Patient Education How to access health informa tion online - Detail Indication:Non-smoker Start:02-Feb-2020 Instruction Type:Patient Education Patient Instructions Indication:Non-smoker Start:02-Feb-2020 Instruction Type:Provider Instructions for Treatment How to access health informa tion online Indication:Non-smoker Start:02-Nov-2019 Instruction Type:Patient Education How to access health informa tion online - Detail Indication:Non-smoker Start:02-Nov-2019 Instruction Type:Patient Education Patient Instructions Indication:Non-smoker Start:02-Nov-2019 Instruction Type:Provider Instructions for Treatment How to access health informa tion online Indication:BMI 26.0-26.9,adult Start:28-Apr-2019 Instruction Type:Patient Education How to access health informa tion online - Detail Indication:BMI 26.0-26.9,adult Start:28-Apr-2019 Instruction Type:Patient Education Patient Instructions Indication:BMI 26.0-26.9,adult Start:28-Apr-2019 Instruction Type:Provider Instructions for Treatment How to access health informa tion online Indication:Diabetes mellitus type II, controlled, with no complications Start:23-Dec-2018 Instruction Type:Patient Education How to access health informa tion online - Detail Indication:Diabetes mellitus type II, controlled, with no complications Start:23-Dec-2018 Instruction Type:Patient Education Patient Instructions Indication:Diabetes mellitus type II, controlled, with no complications Start:23-Dec-2018 Instruction Type:Provider Instructions for Treatment Patient Instructions Indication:Non-smoker Start:30-Aug-2018 Instruction Type:Provider Instructions for Treatment How to access health informa tion online - Detail Indication:Non-smoker Start:30-Aug-2018 Instruction Type:Patient Education How to access health informa tion online Indication:Non-smoker Start:30-Aug-2018 Instruction Type:Patient Education Patient Instructions Indication:Non-smoker Start:30-Aug-2018 Instruction Type:Provider Instructions for Treatment How to access health informa tion online Indication:Diabetes mellitus type II, controlled, with no complications Start:17-May-2018 Instruction Type:Patient Education How to access health informa tion online - Detail Indication:Diabetes mellitus type II, controlled, with no complications Start:17-May-2018 Instruction Type:Patient Education Patient Instructions Indication:Diabetes mellitus type II, controlled, with no complications Start:17-May-2018 Instruction Type:Provider Instructions for Treatment How to access health informa tion online Indication:BMI 25.0-25.9,adult Start:12-Feb-2018 Instruction Type:Patient Education How to access health informa tion online - Detail Indication:BMI 25.0-25.9,adult Start:12-Feb-2018 Instruction Type:Patient Education Patient Instructions Indication:BMI 25.0-25.9,adult Start:12-Feb-2018 Instruction Type:Provider Instructions for Treatment How to access health informa tion online Indication:Diabetes mellitus type II, controlled, with no complications Start:17-Jul-2017 Instruction Type:Patient Education How to access health informa tion online - Detail Indication:Diabetes mellitus type II, controlled, with no complications Start:17-Jul-2017 Instruction Type:Patient Education Patient Instructions Indication:Diabetes mellitus type II, controlled, with no complications Start:17-Jul-2017 Instruction Type:Provider Instructions for Treatment How to access health informa tion online Indication:Non-smoker Start:10-Jul-2017 Instruction Type:Patient Education How to access health informa tion online - Detail Indication:Non-smoker Start:10-Jul-2017 Instruction Type:Patient Education Patient Instructions Indication:Non-smoker Start:10-Jul-2017 Instruction Type:Provider Instructions for Treatment How to access health informa tion online Indication:Diabetes mellitus type II, controlled, with no complications Start:17-Apr-2017 Instruction Type:Patient Education How to access health informa tion online - Detail Indication:Diabetes mellitus type II, controlled, with no complications Start:17-Apr-2017 Instruction Type:Patient Education Patient Instructions Indication:Diabetes mellitus type II, controlled, with no complications Start:17-Apr-2017 Instruction Type:Provider Instructions for Treatment How to access health informa tion online Indication:Tobacco abuse, 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) Start:27-Mar-2017 Instruction Type:Patient Education How to access health informa tion online - Detail Indication:Tobacco abuse, 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) Start:27-Mar-2017 Instruction Type:Patient Education Patient Instructions Indication:Tobacco abuse, 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) Start:27-Mar-2017 Instruction Type:Provider Instructions for Treatment How to access health informa tion online Indication:Diabetes mellitus type II, controlled, with no complications Start:09-Oct-2016 Instruction Type:Patient Education How to access health informa tion online - Detail Indication:Diabetes mellitus type II, controlled, with no complications Start:09-Oct-2016 Instruction Type:Patient Education How to access health informa tion online - Detail Indication:Diabetes mellitus type II, controlled, with no complications Start:09-Oct-2016 Instruction Type:Patient Education Patient Instructions Indication:Diabetes mellitus type II, controlled, with no complications Start:09-Oct-2016 Instruction Type:Provider Instructions for Treatment How to access health informa tion online Indication:Diabetes mellitus type II, controlled, with no complications Start:11-Jun-2016 Instruction Type:Patient Education How to access health informa tion online - Detail Indication:Diabetes mellitus type II, controlled, with no complications Start:11-Jun-2016 Instruction Type:Patient Education Patient Instructions Indication:Diabetes mellitus type II, controlled, with no complications Start:11-Jun-2016 Instruction Type:Provider Instructions for Treatment How to access health informa tion online Indication:Body mass index (BMI) 24.0-24.9, adult Start:22-Apr-2016 Instruction Type:Patient Education How to access health informa tion online - Detail Indication:Body mass index (BMI) 24.0-24.9, adult Start:22-Apr-2016 Instruction Type:Patient Education Patient Instructions Indication:Body mass index (BMI) 24.0-24.9, adult Start:22-Apr-2016 Instruction Type:Provider Instructions for Treatment How to access health informa tion online Indication:Diabetes mellitus type II, controlled, with no complications Start:10-Mar-2016 Instruction Type:Patient Education How to access health informa tion online - Detail Indication:Diabetes mellitus type II, controlled, with no complications Start:10-Mar-2016 Instruction Type:Patient Education Patient Instructions Indication:Diabetes mellitus type II, controlled, with no complications Start:10-Mar-2016 Instruction Type:Provider Instructions for Treatment How to access health informa tion online Indication:Diabetes mellitus type II, controlled, with no complications Start:16-Jul-2015 Instruction Type:Patient Education How to access health informa tion online - Detail Indication:Diabetes mellitus type II, controlled, with no complications Start:16-Jul-2015 Instruction Type:Patient Education Patient Instructions Indication:Diabetes mellitus type II, controlled, with no complications Start:16-Jul-2015 Instruction Type:Provider Instructions for Treatment How to access health informa tion online Indication:Diabetes mellitus type II, controlled, with no complications Start:26-Dec-2014 Instruction Type:Patient Education How to access health informa tion online - Detail Indication:Diabetes mellitus type II, controlled, with no complications Start:26-Dec-2014 Instruction Type:Patient Education Patient Instructions Indication:Diabetes mellitus type II, controlled, with no complications Start:26-Dec-2014 Instruction Type:Provider Instructions for Treatment How to access health informa tion online Indication:Diabetes mellitus type II, controlled, with no complications Start:29-Aug-2014 Instruction Type:Patient Education How to access health informa tion online - Detail Indication:Diabetes mellitus type II, controlled, with no complications Start:29-Aug-2014 Instruction Type:Patient Education Patient Instructions Indication:Diabetes mellitus type II, controlled, with no complications Start:29-Aug-2014 Instruction Type:Provider Instructions for Treatment Weight check (V05.4) Indication:Weight loss Start:08-Jun-2014 Instruction Type:Nursing Car e Education How to access health informa tion online Indication:Diabetes mellitus type II, controlled, with no complications Start:27-Apr-2014 Instruction Type:Patient Education How to access health informa tion online - Detail Indication:Diabetes mellitus type II, controlled, with no complications Start:27-Apr-2014 Instruction Type:Patient Education Patient Instructions Indication:Diabetes mellitus type II, controlled, with no complications Start:27-Apr-2014 Instruction Type:Provider Instructions for Treatment How to access health informa tion online - Detail Indication:Diabetes mellitus type II, controlled, with no complications Start:09-Dec-2013 Instruction Type:Patient Education Patient Instructions Indication:Hypocalcemia Start:07-Jan-2013 Instruction Type:Provider Instructions for Treatment Patient Instructions Indication:Diabetes mellitus type II, controlled, with no complications Start:08-Oct-2012 Instruction Type:Provider Instructions for Treatment [facility]; [facility] Work Phone: Instructions* Name Dates Details Patient Instructions Indication:Diabetes mellitus type II, controlled, with no complications Start:11-Nov-2021 Instruction Type:Provider Instructions for Treatment How to Access Health Informa tion Online using Patient Portal and [employer]rd [employer] Indication:Diabetes mellitus type II, controlled, with no complications Start:11-Nov-2021 Instruction Type:Patient Education Patient Instructions Indication:BMI 26.0-26.9,adult Start:07-Aug-2021 Instruction Type:Provider Instructions for Treatment How to Access Health Informa tion Online using Patient Portal and [employer]rd [employer] Indication:BMI 26.0-26.9,adult Start:07-Aug-2021 Instruction Type:Patient Education Patient Instructions Indication:Diabetes mellitus type II, controlled, with no complications Start:08-May-2021 Instruction Type:Provider Instructions for Treatment How to Access Health Informa tion Online using Patient Portal and [employer]rd [employer] Apps Indication:Diabetes mellitus type II, controlled, with no complications Start:08-May-2021 Instruction Type:Patient Education Patient Instructions Indication:Diabetes mellitus type II, controlled, with no complications Start:07-Jan-2021 Instruction Type:Provider Instructions for Treatment How to Access Health Informa tion Online using Patient Portal and [employer]rd [employer] Apps Indication:Diabetes mellitus type II, controlled, with no complications Start:07-Jan-2021 Instruction Type:Patient Education Patient Instructions Indication:Diabetes mellitus type II, controlled, with no complications Start:03-Sep-2020 Instruction Type:Provider Instructions for Treatment How to Access Health Informa tion Online using Patient Portal and [employer]rd [employer] Apps Indication:Diabetes mellitus type II, controlled, with no complications Start:03-Sep-2020 Instruction Type:Patient Education Patient Instructions Indication:BMI 25.0-25.9,adult Start:04-May-2020 Instruction Type:Provider Instructions for Treatment How to Access Health Informa tion Online using Patient Portal and [employer]rd [employer] Apps Indication:BMI 25.0-25.9,adult Start:04-May-2020 Instruction Type:Patient Education How to access health informa tion online Indication:BMI 25.0-25.9,adult Start:14-Mar-2020 Instruction Type:Patient Education How to access health informa tion online - Detail Indication:BMI 25.0-25.9,adult Start:14-Mar-2020 Instruction Type:Patient Education Patient Instructions Indication:BMI 25.0-25.9,adult Start:14-Mar-2020 Instruction Type:Provider Instructions for Treatment How to access health informa tion online Indication:Non-smoker Start:02-Feb-2020 Instruction Type:Patient Education How to access health informa tion online - Detail Indication:Non-smoker Start:02-Feb-2020 Instruction Type:Patient Education Patient Instructions Indication:Non-smoker Start:02-Feb-2020 Instruction Type:Provider Instructions for Treatment How to access health informa tion online Indication:Non-smoker Start:02-Nov-2019 Instruction Type:Patient Education How to access health informa tion online - Detail Indication:Non-smoker Start:02-Nov-2019 Instruction Type:Patient Education Patient Instructions Indication:Non-smoker Start:02-Nov-2019 Instruction Type:Provider Instructions for Treatment How to access health informa tion online Indication:BMI 26.0-26.9,adult Start:28-Apr-2019 Instruction Type:Patient Education How to access health informa tion online - Detail Indication:BMI 26.0-26.9,adult Start:28-Apr-2019 Instruction Type:Patient Education Patient Instructions Indication:BMI 26.0-26.9,adult Start:28-Apr-2019 Instruction Type:Provider Instructions for Treatment How to access health informa tion online Indication:Diabetes mellitus type II, controlled, with no complications Start:23-Dec-2018 Instruction Type:Patient Education How to access health informa tion online - Detail Indication:Diabetes mellitus type II, controlled, with no complications Start:23-Dec-2018 Instruction Type:Patient Education Patient Instructions Indication:Diabetes mellitus type II, controlled, with no complications Start:23-Dec-2018 Instruction Type:Provider Instructions for Treatment Patient Instructions Indication:Non-smoker Start:30-Aug-2018 Instruction Type:Provider Instructions for Treatment How to access health informa tion online - Detail Indication:Non-smoker Start:30-Aug-2018 Instruction Type:Patient Education How to access health informa tion online Indication:Non-smoker Start:30-Aug-2018 Instruction Type:Patient Education Patient Instructions Indication:Non-smoker Start:30-Aug-2018 Instruction Type:Provider Instructions for Treatment How to access health informa tion online Indication:Diabetes mellitus type II, controlled, with no complications Start:17-May-2018 Instruction Type:Patient Education How to access health informa tion online - Detail Indication:Diabetes mellitus type II, controlled, with no complications Start:17-May-2018 Instruction Type:Patient Education Patient Instructions Indication:Diabetes mellitus type II, controlled, with no complications Start:17-May-2018 Instruction Type:Provider Instructions for Treatment How to access health informa tion online Indication:BMI 25.0-25.9,adult Start:12-Feb-2018 Instruction Type:Patient Education How to access health informa tion online - Detail Indication:BMI 25.0-25.9,adult Start:12-Feb-2018 Instruction Type:Patient Education Patient Instructions Indication:BMI 25.0-25.9,adult Start:12-Feb-2018 Instruction Type:Provider Instructions for Treatment How to access health informa tion online Indication:Diabetes mellitus type II, controlled, with no complications Start:17-Jul-2017 Instruction Type:Patient Education How to access health informa tion online - Detail Indication:Diabetes mellitus type II, controlled, with no complications Start:17-Jul-2017 Instruction Type:Patient Education Patient Instructions Indication:Diabetes mellitus type II, controlled, with no complications Start:17-Jul-2017 Instruction Type:Provider Instructions for Treatment How to access health informa tion online Indication:Non-smoker Start:10-Jul-2017 Instruction Type:Patient Education How to access health informa tion online - Detail Indication:Non-smoker Start:10-Jul-2017 Instruction Type:Patient Education Patient Instructions Indication:Non-smoker Start:10-Jul-2017 Instruction Type:Provider Instructions for Treatment How to access health informa tion online Indication:Diabetes mellitus type II, controlled, with no complications Start:17-Apr-2017 Instruction Type:Patient Education How to access health informa tion online - Detail Indication:Diabetes mellitus type II, controlled, with no complications Start:17-Apr-2017 Instruction Type:Patient Education Patient Instructions Indication:Diabetes mellitus type II, controlled, with no complications Start:17-Apr-2017 Instruction Type:Provider Instructions for Treatment How to access health informa tion online Indication:Tobacco abuse, 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) Start:27-Mar-2017 Instruction Type:Patient Education How to access health informa tion online - Detail Indication:Tobacco abuse, 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) Start:27-Mar-2017 Instruction Type:Patient Education Patient Instructions Indication:Tobacco abuse, 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) Start:27-Mar-2017 Instruction Type:Provider Instructions for Treatment How to access health informa tion online Indication:Diabetes mellitus type II, controlled, with no complications Start:09-Oct-2016 Instruction Type:Patient Education How to access health informa tion online - Detail Indication:Diabetes mellitus type II, controlled, with no complications Start:09-Oct-2016 Instruction Type:Patient Education How to access health informa tion online - Detail Indication:Diabetes mellitus type II, controlled, with no complications Start:09-Oct-2016 Instruction Type:Patient Education Patient Instructions Indication:Diabetes mellitus type II, controlled, with no complications Start:09-Oct-2016 Instruction Type:Provider Instructions for Treatment How to access health informa tion online Indication:Diabetes mellitus type II, controlled, with no complications Start:11-Jun-2016 Instruction Type:Patient Education How to access health informa tion online - Detail Indication:Diabetes mellitus type II, controlled, with no complications Start:11-Jun-2016 Instruction Type:Patient Education Patient Instructions Indication:Diabetes mellitus type II, controlled, with no complications Start:11-Jun-2016 Instruction Type:Provider Instructions for Treatment How to access health informa tion online Indication:Body mass index (BMI) 24.0-24.9, adult Start:22-Apr-2016 Instruction Type:Patient Education How to access health informa tion online - Detail Indication:Body mass index (BMI) 24.0-24.9, adult Start:22-Apr-2016 Instruction Type:Patient Education Patient Instructions Indication:Body mass index (BMI) 24.0-24.9, adult Start:22-Apr-2016 Instruction Type:Provider Instructions for Treatment How to access health informa tion online Indication:Diabetes mellitus type II, controlled, with no complications Start:10-Mar-2016 Instruction Type:Patient Education How to access health informa tion online - Detail Indication:Diabetes mellitus type II, controlled, with no complications Start:10-Mar-2016 Instruction Type:Patient Education Patient Instructions Indication:Diabetes mellitus type II, controlled, with no complications Start:10-Mar-2016 Instruction Type:Provider Instructions for Treatment How to access health informa tion online Indication:Diabetes mellitus type II, controlled, with no complications Start:16-Jul-2015 Instruction Type:Patient Education How to access health informa tion online - Detail Indication:Diabetes mellitus type II, controlled, with no complications Start:16-Jul-2015 Instruction Type:Patient Education Patient Instructions Indication:Diabetes mellitus type II, controlled, with no complications Start:16-Jul-2015 Instruction Type:Provider Instructions for Treatment How to access health informa tion online Indication:Diabetes mellitus type II, controlled, with no complications Start:26-Dec-2014 Instruction Type:Patient Education How to access health informa tion online - Detail Indication:Diabetes mellitus type II, controlled, with no complications Start:26-Dec-2014 Instruction Type:Patient Education Patient Instructions Indication:Diabetes mellitus type II, controlled, with no complications Start:26-Dec-2014 Instruction Type:Provider Instructions for Treatment How to access health informa tion online Indication:Diabetes mellitus type II, controlled, with no complications Start:29-Aug-2014 Instruction Type:Patient Education How to access health informa tion online - Detail Indication:Diabetes mellitus type II, controlled, with no complications Start:29-Aug-2014 Instruction Type:Patient Education Patient Instructions Indication:Diabetes mellitus type II, controlled, with no complications Start:29-Aug-2014 Instruction Type:Provider Instructions for Treatment Weight check (V05.4) Indication:Weight loss Start:08-Jun-2014 Instruction Type:Nursing Car e Education How to access health informa tion online Indication:Diabetes mellitus type II, controlled, with no complications Start:27-Apr-2014 Instruction Type:Patient Education How to access health informa tion online - Detail Indication:Diabetes mellitus type II, controlled, with no complications Start:27-Apr-2014 Instruction Type:Patient Education Patient Instructions Indication:Diabetes mellitus type II, controlled, with no complications Start:27-Apr-2014 Instruction Type:Provider Instructions for Treatment How to access health informa tion online - Detail Indication:Diabetes mellitus type II, controlled, with no complications Start:09-Dec-2013 Instruction Type:Patient Education Patient Instructions Indication:Hypocalcemia Start:07-Jan-2013 Instruction Type:Provider Instructions for Treatment Patient Instructions Indication:Diabetes mellitus type II, controlled, with no complications Start:08-Oct-2012 Instruction Type:Provider Instructions for Treatment [facility]; [facility] Work Phone: Instructions* Name Dates Details Patient Instructions Indication:Diabetes mellitus type II, controlled, with no complications Start:11-Nov-2021 Instruction Type:Provider Instructions for Treatment How to Access Health Informa tion Online using Patient Portal and [employer]rd [employer] Apps Indication:Diabetes mellitus type II, controlled, with no complications Start:11-Nov-2021 Instruction Type:Patient Education Patient Instructions Indication:BMI 26.0-26.9,adult Start:07-Aug-2021 Instruction Type:Provider Instructions for Treatment How to Access Health Informa tion Online using Patient Portal and 3rd [employer] Apps Indication:BMI 26.0-26.9,adult Start:07-Aug-2021 Instruction Type:Patient Education Patient Instructions Indication:Diabetes mellitus type II, controlled, with no complications Start:08-May-2021 Instruction Type:Provider Instructions for Treatment How to Access Health Informa tion Online using Patient Portal and [employer]rd [employer] Apps Indication:Diabetes mellitus type II, controlled, with no complications Start:08-May-2021 Instruction Type:Patient Education Patient Instructions Indication:Diabetes mellitus type II, controlled, with no complications Start:07-Jan-2021 Instruction Type:Provider Instructions for Treatment How to Access Health Informa tion Online using Patient Portal and [employer]rd [employer] Apps Indication:Diabetes mellitus type II, controlled, with no complications Start:07-Jan-2021 Instruction Type:Patient Education Patient Instructions Indication:Diabetes mellitus type II, controlled, with no complications Start:03-Sep-2020 Instruction Type:Provider Instructions for Treatment How to Access Health Informa tion Online using Patient Portal and [employer]rd [employer] Apps Indication:Diabetes mellitus type II, controlled, with no complications Start:03-Sep-2020 Instruction Type:Patient Education Patient Instructions Indication:BMI 25.0-25.9,adult Start:04-May-2020 Instruction Type:Provider Instructions for Treatment How to Access Health Informa tion Online using Patient Portal and [employer]rd [employer] Apps Indication:BMI 25.0-25.9,adult Start:04-May-2020 Instruction Type:Patient Education How to access health informa tion online Indication:BMI 25.0-25.9,adult Start:14-Mar-2020 Instruction Type:Patient Education How to access health informa tion online - Detail Indication:BMI 25.0-25.9,adult Start:14-Mar-2020 Instruction Type:Patient Education Patient Instructions Indication:BMI 25.0-25.9,adult Start:14-Mar-2020 Instruction Type:Provider Instructions for Treatment How to access health informa tion online Indication:Non-smoker Start:02-Feb-2020 Instruction Type:Patient Education How to access health informa tion online - Detail Indication:Non-smoker Start:02-Feb-2020 Instruction Type:Patient Education Patient Instructions Indication:Non-smoker Start:02-Feb-2020 Instruction Type:Provider Instructions for Treatment How to access health informa tion online Indication:Non-smoker Start:02-Nov-2019 Instruction Type:Patient Education How to access health informa tion online - Detail Indication:Non-smoker Start:02-Nov-2019 Instruction Type:Patient Education Patient Instructions Indication:Non-smoker Start:02-Nov-2019 Instruction Type:Provider Instructions for Treatment How to access health informa tion online Indication:BMI 26.0-26.9,adult Start:28-Apr-2019 Instruction Type:Patient Education How to access health informa tion online - Detail Indication:BMI 26.0-26.9,adult Start:28-Apr-2019 Instruction Type:Patient Education Patient Instructions Indication:BMI 26.0-26.9,adult Start:28-Apr-2019 Instruction Type:Provider Instructions for Treatment How to access health informa tion online Indication:Diabetes mellitus type II, controlled, with no complications Start:23-Dec-2018 Instruction Type:Patient Education How to access health informa tion online - Detail Indication:Diabetes mellitus type II, controlled, with no complications Start:23-Dec-2018 Instruction Type:Patient Education Patient Instructions Indication:Diabetes mellitus type II, controlled, with no complications Start:23-Dec-2018 Instruction Type:Provider Instructions for Treatment Patient Instructions Indication:Non-smoker Start:30-Aug-2018 Instruction Type:Provider Instructions for Treatment How to access health informa tion online - Detail Indication:Non-smoker Start:30-Aug-2018 Instruction Type:Patient Education How to access health informa tion online Indication:Non-smoker Start:30-Aug-2018 Instruction Type:Patient Education Patient Instructions Indication:Non-smoker Start:30-Aug-2018 Instruction Type:Provider Instructions for Treatment How to access health informa tion online Indication:Diabetes mellitus type II, controlled, with no complications Start:17-May-2018 Instruction Type:Patient Education How to access health informa tion online - Detail Indication:Diabetes mellitus type II, controlled, with no complications Start:17-May-2018 Instruction Type:Patient Education Patient Instructions Indication:Diabetes mellitus type II, controlled, with no complications Start:17-May-2018 Instruction Type:Provider Instructions for Treatment How to access health informa tion online Indication:BMI 25.0-25.9,adult Start:12-Feb-2018 Instruction Type:Patient Education How to access health informa tion online - Detail Indication:BMI 25.0-25.9,adult Start:12-Feb-2018 Instruction Type:Patient Education Patient Instructions Indication:BMI 25.0-25.9,adult Start:12-Feb-2018 Instruction Type:Provider Instructions for Treatment How to access health informa tion online Indication:Diabetes mellitus type II, controlled, with no complications Start:17-Jul-2017 Instruction Type:Patient Education How to access health informa tion online - Detail Indication:Diabetes mellitus type II, controlled, with no complications Start:17-Jul-2017 Instruction Type:Patient Education Patient Instructions Indication:Diabetes mellitus type II, controlled, with no complications Start:17-Jul-2017 Instruction Type:Provider Instructions for Treatment How to access health informa tion online Indication:Non-smoker Start:10-Jul-2017 Instruction Type:Patient Education How to access health informa tion online - Detail Indication:Non-smoker Start:10-Jul-2017 Instruction Type:Patient Education Patient Instructions Indication:Non-smoker Start:10-Jul-2017 Instruction Type:Provider Instructions for Treatment How to access health informa tion online Indication:Diabetes mellitus type II, controlled, with no complications Start:17-Apr-2017 Instruction Type:Patient Education How to access health informa tion online - Detail Indication:Diabetes mellitus type II, controlled, with no complications Start:17-Apr-2017 Instruction Type:Patient Education Patient Instructions Indication:Diabetes mellitus type II, controlled, with no complications Start:17-Apr-2017 Instruction Type:Provider Instructions for Treatment How to access health informa tion online Indication:Tobacco abuse, 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) Start:27-Mar-2017 Instruction Type:Patient Education How to access health informa tion online - Detail Indication:Tobacco abuse, 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) Start:27-Mar-2017 Instruction Type:Patient Education Patient Instructions Indication:Tobacco abuse, 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) Start:27-Mar-2017 Instruction Type:Provider Instructions for Treatment How to access health informa tion online Indication:Diabetes mellitus type II, controlled, with no complications Start:09-Oct-2016 Instruction Type:Patient Education How to access health informa tion online - Detail Indication:Diabetes mellitus type II, controlled, with no complications Start:09-Oct-2016 Instruction Type:Patient Education How to access health informa tion online - Detail Indication:Diabetes mellitus type II, controlled, with no complications Start:09-Oct-2016 Instruction Type:Patient Education Patient Instructions Indication:Diabetes mellitus type II, controlled, with no complications Start:09-Oct-2016 Instruction Type:Provider Instructions for Treatment How to access health informa tion online Indication:Diabetes mellitus type II, controlled, with no complications Start:11-Jun-2016 Instruction Type:Patient Education How to access health informa tion online - Detail Indication:Diabetes mellitus type II, controlled, with no complications Start:11-Jun-2016 Instruction Type:Patient Education Patient Instructions Indication:Diabetes mellitus type II, controlled, with no complications Start:11-Jun-2016 Instruction Type:Provider Instructions for Treatment How to access health informa tion online Indication:Body mass index (BMI) 24.0-24.9, adult Start:22-Apr-2016 Instruction Type:Patient Education How to access health informa tion online - Detail Indication:Body mass index (BMI) 24.0-24.9, adult Start:22-Apr-2016 Instruction Type:Patient Education Patient Instructions Indication:Body mass index (BMI) 24.0-24.9, adult Start:22-Apr-2016 Instruction Type:Provider Instructions for Treatment How to access health informa tion online Indication:Diabetes mellitus type II, controlled, with no complications Start:10-Mar-2016 Instruction Type:Patient Education How to access health informa tion online - Detail Indication:Diabetes mellitus type II, controlled, with no complications Start:10-Mar-2016 Instruction Type:Patient Education Patient Instructions Indication:Diabetes mellitus type II, controlled, with no complications Start:10-Mar-2016 Instruction Type:Provider Instructions for Treatment How to access health informa tion online Indication:Diabetes mellitus type II, controlled, with no complications Start:16-Jul-2015 Instruction Type:Patient Education How to access health informa tion online - Detail Indication:Diabetes mellitus type II, controlled, with no complications Start:16-Jul-2015 Instruction Type:Patient Education Patient Instructions Indication:Diabetes mellitus type II, controlled, with no complications Start:16-Jul-2015 Instruction Type:Provider Instructions for Treatment How to access health informa tion online Indication:Diabetes mellitus type II, controlled, with no complications Start:26-Dec-2014 Instruction Type:Patient Education How to access health informa tion online - Detail Indication:Diabetes mellitus type II, controlled, with no complications Start:26-Dec-2014 Instruction Type:Patient Education Patient Instructions Indication:Diabetes mellitus type II, controlled, with no complications Start:26-Dec-2014 Instruction Type:Provider Instructions for Treatment How to access health informa tion online Indication:Diabetes mellitus type II, controlled, with no complications Start:29-Aug-2014 Instruction Type:Patient Education How to access health informa tion online - Detail Indication:Diabetes mellitus type II, controlled, with no complications Start:29-Aug-2014 Instruction Type:Patient Education Patient Instructions Indication:Diabetes mellitus type II, controlled, with no complications Start:29-Aug-2014 Instruction Type:Provider Instructions for Treatment Weight check (V05.4) Indication:Weight loss Start:08-Jun-2014 Instruction Type:Nursing Car e Education How to access health informa tion online Indication:Diabetes mellitus type II, controlled, with no complications Start:27-Apr-2014 Instruction Type:Patient Education How to access health informa tion online - Detail Indication:Diabetes mellitus type II, controlled, with no complications Start:27-Apr-2014 Instruction Type:Patient Education Patient Instructions Indication:Diabetes mellitus type II, controlled, with no complications Start:27-Apr-2014 Instruction Type:Provider Instructions for Treatment How to access health informa tion online - Detail Indication:Diabetes mellitus type II, controlled, with no complications Start:09-Dec-2013 Instruction Type:Patient Education Patient Instructions Indication:Hypocalcemia Start:07-Jan-2013 Instruction Type:Provider Instructions for Treatment Patient Instructions Indication:Diabetes mellitus type II, controlled, with no complications Start:08-Oct-2012 Instruction Type:Provider Instructions for Treatment [facility]; [facility] Work Phone: Instructions* Name Dates Details Patient Instructions Indication:Non-smoker Start:14-Mar-2022 Instruction Type:Provider Instructions for Treatment How to Access Health Informa tion Online using Patient Portal and [employer] Apps Indication:Non-smoker Start:14-Mar-2022 Instruction Type:Patient Education Patient Instructions Indication:Diabetes mellitus type II, controlled, with no complications Start:11-Nov-2021 Instruction Type:Provider Instructions for Treatment How to Access Health Informa tion Online using Patient Portal and [employer] Apps Indication:Diabetes mellitus type II, controlled, with no complications Start:11-Nov-2021 Instruction Type:Patient Education Patient Instructions Indication:BMI 26.0-26.9,adult Start:07-Aug-2021 Instruction Type:Provider Instructions for Treatment How to Access Health Informa tion Online using Patient Portal and [employer] Apps Indication:BMI 26.0-26.9,adult Start:07-Aug-2021 Instruction Type:Patient Education Patient Instructions Indication:Diabetes mellitus type II, controlled, with no complications Start:08-May-2021 Instruction Type:Provider Instructions for Treatment How to Access Health Informa tion Online using Patient Portal and [employer] Apps Indication:Diabetes mellitus type II, controlled, with no complications Start:08-May-2021 Instruction Type:Patient Education Patient Instructions Indication:Diabetes mellitus type II, controlled, with no complications Start:07-Jan-2021 Instruction Type:Provider Instructions for Treatment How to Access Health Informa tion Online using Patient Portal and [employer] Apps Indication:Diabetes mellitus type II, controlled, with no complications Start:07-Jan-2021 Instruction Type:Patient Education Patient Instructions Indication:Diabetes mellitus type II, controlled, with no complications Start:03-Sep-2020 Instruction Type:Provider Instructions for Treatment How to Access Health Informa tion Online using Patient Portal and [employer] Apps Indication:Diabetes mellitus type II, controlled, with no complications Start:03-Sep-2020 Instruction Type:Patient Education Patient Instructions Indication:BMI 25.0-25.9,adult Start:04-May-2020 Instruction Type:Provider Instructions for Treatment How to Access Health Informa tion Online using Patient Portal and [employer] Apps Indication:BMI 25.0-25.9,adult Start:04-May-2020 Instruction Type:Patient Education How to access health informa tion online Indication:BMI 25.0-25.9,adult Start:14-Mar-2020 Instruction Type:Patient Education How to access health informa tion online - Detail Indication:BMI 25.0-25.9,adult Start:14-Mar-2020 Instruction Type:Patient Education Patient Instructions Indication:BMI 25.0-25.9,adult Start:14-Mar-2020 Instruction Type:Provider Instructions for Treatment How to access health informa tion online Indication:Non-smoker Start:02-Feb-2020 Instruction Type:Patient Education How to access health informa tion online - Detail Indication:Non-smoker Start:02-Feb-2020 Instruction Type:Patient Education Patient Instructions Indication:Non-smoker Start:02-Feb-2020 Instruction Type:Provider Instructions for Treatment How to access health informa tion online Indication:Non-smoker Start:02-Nov-2019 Instruction Type:Patient Education How to access health informa tion online - Detail Indication:Non-smoker Start:02-Nov-2019 Instruction Type:Patient Education Patient Instructions Indication:Non-smoker Start:02-Nov-2019 Instruction Type:Provider Instructions for Treatment How to access health informa tion online Indication:BMI 26.0-26.9,adult Start:28-Apr-2019 Instruction Type:Patient Education How to access health informa tion online - Detail Indication:BMI 26.0-26.9,adult Start:28-Apr-2019 Instruction Type:Patient Education Patient Instructions Indication:BMI 26.0-26.9,adult Start:28-Apr-2019 Instruction Type:Provider Instructions for Treatment How to access health informa tion online Indication:Diabetes mellitus type II, controlled, with no complications Start:23-Dec-2018 Instruction Type:Patient Education How to access health informa tion online - Detail Indication:Diabetes mellitus type II, controlled, with no complications Start:23-Dec-2018 Instruction Type:Patient Education Patient Instructions Indication:Diabetes mellitus type II, controlled, with no complications Start:23-Dec-2018 Instruction Type:Provider Instructions for Treatment Patient Instructions Indication:Non-smoker Start:30-Aug-2018 Instruction Type:Provider Instructions for Treatment How to access health informa tion online - Detail Indication:Non-smoker Start:30-Aug-2018 Instruction Type:Patient Education How to access health informa tion online Indication:Non-smoker Start:30-Aug-2018 Instruction Type:Patient Education Patient Instructions Indication:Non-smoker Start:30-Aug-2018 Instruction Type:Provider Instructions for Treatment How to access health informa tion online Indication:Diabetes mellitus type II, controlled, with no complications Start:17-May-2018 Instruction Type:Patient Education How to access health informa tion online - Detail Indication:Diabetes mellitus type II, controlled, with no complications Start:17-May-2018 Instruction Type:Patient Education Patient Instructions Indication:Diabetes mellitus type II, controlled, with no complications Start:17-May-2018 Instruction Type:Provider Instructions for Treatment How to access health informa tion online Indication:BMI 25.0-25.9,adult Start:12-Feb-2018 Instruction Type:Patient Education How to access health informa tion online - Detail Indication:BMI 25.0-25.9,adult Start:12-Feb-2018 Instruction Type:Patient Education Patient Instructions Indication:BMI 25.0-25.9,adult Start:12-Feb-2018 Instruction Type:Provider Instructions for Treatment How to access health informa tion online Indication:Diabetes mellitus type II, controlled, with no complications Start:17-Jul-2017 Instruction Type:Patient Education How to access health informa tion online - Detail Indication:Diabetes mellitus type II, controlled, with no complications Start:17-Jul-2017 Instruction Type:Patient Education Patient Instructions Indication:Diabetes mellitus type II, controlled, with no complications Start:17-Jul-2017 Instruction Type:Provider Instructions for Treatment How to access health informa tion online Indication:Non-smoker Start:10-Jul-2017 Instruction Type:Patient Education How to access health informa tion online - Detail Indication:Non-smoker Start:10-Jul-2017 Instruction Type:Patient Education Patient Instructions Indication:Non-smoker Start:10-Jul-2017 Instruction Type:Provider Instructions for Treatment How to access health informa tion online Indication:Diabetes mellitus type II, controlled, with no complications Start:17-Apr-2017 Instruction Type:Patient Education How to access health informa tion online - Detail Indication:Diabetes mellitus type II, controlled, with no complications Start:17-Apr-2017 Instruction Type:Patient Education Patient Instructions Indication:Diabetes mellitus type II, controlled, with no complications Start:17-Apr-2017 Instruction Type:Provider Instructions for Treatment How to access health informa tion online Indication:Tobacco abuse, 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) Start:27-Mar-2017 Instruction Type:Patient Education How to access health informa tion online - Detail Indication:Tobacco abuse, 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) Start:27-Mar-2017 Instruction Type:Patient Education Patient Instructions Indication:Tobacco abuse, 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) Start:27-Mar-2017 Instruction Type:Provider Instructions for Treatment How to access health informa tion online Indication:Diabetes mellitus type II, controlled, with no complications Start:09-Oct-2016 Instruction Type:Patient Education How to access health informa tion online - Detail Indication:Diabetes mellitus type II, controlled, with no complications Start:09-Oct-2016 Instruction Type:Patient Education How to access health informa tion online - Detail Indication:Diabetes mellitus type II, controlled, with no complications Start:09-Oct-2016 Instruction Type:Patient Education Patient Instructions Indication:Diabetes mellitus type II, controlled, with no complications Start:09-Oct-2016 Instruction Type:Provider Instructions for Treatment How to access health informa tion online Indication:Diabetes mellitus type II, controlled, with no complications Start:11-Jun-2016 Instruction Type:Patient Education How to access health informa tion online - Detail Indication:Diabetes mellitus type II, controlled, with no complications Start:11-Jun-2016 Instruction Type:Patient Education Patient Instructions Indication:Diabetes mellitus type II, controlled, with no complications Start:11-Jun-2016 Instruction Type:Provider Instructions for Treatment How to access health informa tion online Indication:Body mass index (BMI) 24.0-24.9, adult Start:22-Apr-2016 Instruction Type:Patient Education How to access health informa tion online - Detail Indication:Body mass index (BMI) 24.0-24.9, adult Start:22-Apr-2016 Instruction Type:Patient Education Patient Instructions Indication:Body mass index (BMI) 24.0-24.9, adult Start:22-Apr-2016 Instruction Type:Provider Instructions for Treatment How to access health informa tion online Indication:Diabetes mellitus type II, controlled, with no complications Start:10-Mar-2016 Instruction Type:Patient Education How to access health informa tion online - Detail Indication:Diabetes mellitus type II, controlled, with no complications Start:10-Mar-2016 Instruction Type:Patient Education Patient Instructions Indication:Diabetes mellitus type II, controlled, with no complications Start:10-Mar-2016 Instruction Type:Provider Instructions for Treatment How to access health informa tion online Indication:Diabetes mellitus type II, controlled, with no complications Start:16-Jul-2015 Instruction Type:Patient Education How to access health informa tion online - Detail Indication:Diabetes mellitus type II, controlled, with no complications Start:16-Jul-2015 Instruction Type:Patient Education Patient Instructions Indication:Diabetes mellitus type II, controlled, with no complications Start:16-Jul-2015 Instruction Type:Provider Instructions for Treatment How to access health informa tion online Indication:Diabetes mellitus type II, controlled, with no complications Start:26-Dec-2014 Instruction Type:Patient Education How to access health informa tion online - Detail Indication:Diabetes mellitus type II, controlled, with no complications Start:26-Dec-2014 Instruction Type:Patient Education Patient Instructions Indication:Diabetes mellitus type II, controlled, with no complications Start:26-Dec-2014 Instruction Type:Provider Instructions for Treatment How to access health informa tion online Indication:Diabetes mellitus type II, controlled, with no complications Start:29-Aug-2014 Instruction Type:Patient Education How to access health informa tion online - Detail Indication:Diabetes mellitus type II, controlled, with no complications Start:29-Aug-2014 Instruction Type:Patient Education Patient Instructions Indication:Diabetes mellitus type II, controlled, with no complications Start:29-Aug-2014 Instruction Type:Provider Instructions for Treatment Weight check (V05.4) Indication:Weight loss Start:08-Jun-2014 Instruction Type:Nursing Car e Education How to access health informa tion online Indication:Diabetes mellitus type II, controlled, with no complications Start:27-Apr-2014 Instruction Type:Patient Education How to access health informa tion online - Detail Indication:Diabetes mellitus type II, controlled, with no complications Start:27-Apr-2014 Instruction Type:Patient Education Patient Instructions Indication:Diabetes mellitus type II, controlled, with no complications Start:27-Apr-2014 Instruction Type:Provider Instructions for Treatment How to access health informa tion online - Detail Indication:Diabetes mellitus type II, controlled, with no complications Start:09-Dec-2013 Instruction Type:Patient Education Patient Instructions Indication:Hypocalcemia Start:07-Jan-2013 Instruction Type:Provider Instructions for Treatment Patient Instructions Indication:Diabetes mellitus type II, controlled, with no complications Start:08-Oct-2012 Instruction Type:Provider Instructions for Treatment [facility]; [facility] Work Phone: Instructions* Name Dates Details Patient Instructions Indication:Non-smoker Start:14-Mar-2022 Instruction Type:Provider Instructions for Treatment How to Access Health Informa tion Online using Patient Portal and [employer] Apps Indication:Non-smoker Start:14-Mar-2022 Instruction Type:Patient Education Patient Instructions Indication:Diabetes mellitus type II, controlled, with no complications Start:11-Nov-2021 Instruction Type:Provider Instructions for Treatment How to Access Health Informa tion Online using Patient Portal and [employer] Apps Indication:Diabetes mellitus type II, controlled, with no complications Start:11-Nov-2021 Instruction Type:Patient Education Patient Instructions Indication:BMI 26.0-26.9,adult Start:07-Aug-2021 Instruction Type:Provider Instructions for Treatment How to Access Health Informa tion Online using Patient Portal and [employer] Indication:BMI 26.0-26.9,adult Start:07-Aug-2021 Instruction Type:Patient Education Patient Instructions Indication:Diabetes mellitus type II, controlled, with no complications Start:08-May-2021 Instruction Type:Provider Instructions for Treatment How to Access Health Informa tion Online using Patient Portal and [employer] Apps Indication:Diabetes mellitus type II, controlled, with no complications Start:08-May-2021 Instruction Type:Patient Education Patient Instructions Indication:Diabetes mellitus type II, controlled, with no complications Start:07-Jan-2021 Instruction Type:Provider Instructions for Treatment How to Access Health Informa tion Online using Patient Portal and [employer] Apps Indication:Diabetes mellitus type II, controlled, with no complications Start:07-Jan-2021 Instruction Type:Patient Education Patient Instructions Indication:Diabetes mellitus type II, controlled, with no complications Start:03-Sep-2020 Instruction Type:Provider Instructions for Treatment How to Access Health Informa tion Online using Patient Portal and [employer] Apps Indication:Diabetes mellitus type II, controlled, with no complications Start:03-Sep-2020 Instruction Type:Patient Education Patient Instructions Indication:BMI 25.0-25.9,adult Start:04-May-2020 Instruction Type:Provider Instructions for Treatment How to Access Health Informa tion Online using Patient Portal and [employer] Indication:BMI 25.0-25.9,adult Start:04-May-2020 Instruction Type:Patient Education How to access health informa tion online Indication:BMI 25.0-25.9,adult Start:14-Mar-2020 Instruction Type:Patient Education How to access health informa tion online - Detail Indication:BMI 25.0-25.9,adult Start:14-Mar-2020 Instruction Type:Patient Education Patient Instructions Indication:BMI 25.0-25.9,adult Start:14-Mar-2020 Instruction Type:Provider Instructions for Treatment How to access health informa tion online Indication:Non-smoker Start:02-Feb-2020 Instruction Type:Patient Education How to access health informa tion online - Detail Indication:Non-smoker Start:02-Feb-2020 Instruction Type:Patient Education Patient Instructions Indication:Non-smoker Start:02-Feb-2020 Instruction Type:Provider Instructions for Treatment How to access health informa tion online Indication:Non-smoker Start:02-Nov-2019 Instruction Type:Patient Education How to access health informa tion online - Detail Indication:Non-smoker Start:02-Nov-2019 Instruction Type:Patient Education Patient Instructions Indication:Non-smoker Start:02-Nov-2019 Instruction Type:Provider Instructions for Treatment How to access health informa tion online Indication:BMI 26.0-26.9,adult Start:28-Apr-2019 Instruction Type:Patient Education How to access health informa tion online - Detail Indication:BMI 26.0-26.9,adult Start:28-Apr-2019 Instruction Type:Patient Education Patient Instructions Indication:BMI 26.0-26.9,adult Start:28-Apr-2019 Instruction Type:Provider Instructions for Treatment How to access health informa tion online Indication:Diabetes mellitus type II, controlled, with no complications Start:23-Dec-2018 Instruction Type:Patient Education How to access health informa tion online - Detail Indication:Diabetes mellitus type II, controlled, with no complications Start:23-Dec-2018 Instruction Type:Patient Education Patient Instructions Indication:Diabetes mellitus type II, controlled, with no complications Start:23-Dec-2018 Instruction Type:Provider Instructions for Treatment Patient Instructions Indication:Non-smoker Start:30-Aug-2018 Instruction Type:Provider Instructions for Treatment How to access health informa tion online - Detail Indication:Non-smoker Start:30-Aug-2018 Instruction Type:Patient Education How to access health informa tion online Indication:Non-smoker Start:30-Aug-2018 Instruction Type:Patient Education Patient Instructions Indication:Non-smoker Start:30-Aug-2018 Instruction Type:Provider Instructions for Treatment How to access health informa tion online Indication:Diabetes mellitus type II, controlled, with no complications Start:17-May-2018 Instruction Type:Patient Education How to access health informa tion online - Detail Indication:Diabetes mellitus type II, controlled, with no complications Start:17-May-2018 Instruction Type:Patient Education Patient Instructions Indication:Diabetes mellitus type II, controlled, with no complications Start:17-May-2018 Instruction Type:Provider Instructions for Treatment How to access health informa tion online Indication:BMI 25.0-25.9,adult Start:12-Feb-2018 Instruction Type:Patient Education How to access health informa tion online - Detail Indication:BMI 25.0-25.9,adult Start:12-Feb-2018 Instruction Type:Patient Education Patient Instructions Indication:BMI 25.0-25.9,adult Start:12-Feb-2018 Instruction Type:Provider Instructions for Treatment How to access health informa tion online Indication:Diabetes mellitus type II, controlled, with no complications Start:17-Jul-2017 Instruction Type:Patient Education How to access health informa tion online - Detail Indication:Diabetes mellitus type II, controlled, with no complications Start:17-Jul-2017 Instruction Type:Patient Education Patient Instructions Indication:Diabetes mellitus type II, controlled, with no complications Start:17-Jul-2017 Instruction Type:Provider Instructions for Treatment How to access health informa tion online Indication:Non-smoker Start:10-Jul-2017 Instruction Type:Patient Education How to access health informa tion online - Detail Indication:Non-smoker Start:10-Jul-2017 Instruction Type:Patient Education Patient Instructions Indication:Non-smoker Start:10-Jul-2017 Instruction Type:Provider Instructions for Treatment How to access health informa tion online Indication:Diabetes mellitus type II, controlled, with no complications Start:17-Apr-2017 Instruction Type:Patient Education How to access health informa tion online - Detail Indication:Diabetes mellitus type II, controlled, with no complications Start:17-Apr-2017 Instruction Type:Patient Education Patient Instructions Indication:Diabetes mellitus type II, controlled, with no complications Start:17-Apr-2017 Instruction Type:Provider Instructions for Treatment How to access health informa tion online Indication:Tobacco abuse, 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) Start:27-Mar-2017 Instruction Type:Patient Education How to access health informa tion online - Detail Indication:Tobacco abuse, 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) Start:27-Mar-2017 Instruction Type:Patient Education Patient Instructions Indication:Tobacco abuse, 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) Start:27-Mar-2017 Instruction Type:Provider Instructions for Treatment How to access health informa tion online Indication:Diabetes mellitus type II, controlled, with no complications Start:09-Oct-2016 Instruction Type:Patient Education How to access health informa tion online - Detail Indication:Diabetes mellitus type II, controlled, with no complications Start:09-Oct-2016 Instruction Type:Patient Education How to access health informa tion online - Detail Indication:Diabetes mellitus type II, controlled, with no complications Start:09-Oct-2016 Instruction Type:Patient Education Patient Instructions Indication:Diabetes mellitus type II, controlled, with no complications Start:09-Oct-2016 Instruction Type:Provider Instructions for Treatment How to access health informa tion online Indication:Diabetes mellitus type II, controlled, with no complications Start:11-Jun-2016 Instruction Type:Patient Education How to access health informa tion online - Detail Indication:Diabetes mellitus type II, controlled, with no complications Start:11-Jun-2016 Instruction Type:Patient Education Patient Instructions Indication:Diabetes mellitus type II, controlled, with no complications Start:11-Jun-2016 Instruction Type:Provider Instructions for Treatment How to access health informa tion online Indication:Body mass index (BMI) 24.0-24.9, adult Start:22-Apr-2016 Instruction Type:Patient Education How to access health informa tion online - Detail Indication:Body mass index (BMI) 24.0-24.9, adult Start:22-Apr-2016 Instruction Type:Patient Education Patient Instructions Indication:Body mass index (BMI) 24.0-24.9, adult Start:22-Apr-2016 Instruction Type:Provider Instructions for Treatment How to access health informa tion online Indication:Diabetes mellitus type II, controlled, with no complications Start:10-Mar-2016 Instruction Type:Patient Education How to access health informa tion online - Detail Indication:Diabetes mellitus type II, controlled, with no complications Start:10-Mar-2016 Instruction Type:Patient Education Patient Instructions Indication:Diabetes mellitus type II, controlled, with no complications Start:10-Mar-2016 Instruction Type:Provider Instructions for Treatment How to access health informa tion online Indication:Diabetes mellitus type II, controlled, with no complications Start:16-Jul-2015 Instruction Type:Patient Education How to access health informa tion online - Detail Indication:Diabetes mellitus type II, controlled, with no complications Start:16-Jul-2015 Instruction Type:Patient Education Patient Instructions Indication:Diabetes mellitus type II, controlled, with no complications Start:16-Jul-2015 Instruction Type:Provider Instructions for Treatment How to access health informa tion online Indication:Diabetes mellitus type II, controlled, with no complications Start:26-Dec-2014 Instruction Type:Patient Education How to access health informa tion online - Detail Indication:Diabetes mellitus type II, controlled, with no complications Start:26-Dec-2014 Instruction Type:Patient Education Patient Instructions Indication:Diabetes mellitus type II, controlled, with no complications Start:26-Dec-2014 Instruction Type:Provider Instructions for Treatment How to access health informa tion online Indication:Diabetes mellitus type II, controlled, with no complications Start:29-Aug-2014 Instruction Type:Patient Education How to access health informa tion online - Detail Indication:Diabetes mellitus type II, controlled, with no complications Start:29-Aug-2014 Instruction Type:Patient Education Patient Instructions Indication:Diabetes mellitus type II, controlled, with no complications Start:29-Aug-2014 Instruction Type:Provider Instructions for Treatment Weight check (V05.4) Indication:Weight loss Start:08-Jun-2014 Instruction Type:Nursing Car e Education How to access health informa tion online Indication:Diabetes mellitus type II, controlled, with no complications Start:27-Apr-2014 Instruction Type:Patient Education How to access health informa tion online - Detail Indication:Diabetes mellitus type II, controlled, with no complications Start:27-Apr-2014 Instruction Type:Patient Education Patient Instructions Indication:Diabetes mellitus type II, controlled, with no complications Start:27-Apr-2014 Instruction Type:Provider Instructions for Treatment How to access health informa tion online - Detail Indication:Diabetes mellitus type II, controlled, with no complications Start:09-Dec-2013 Instruction Type:Patient Education Patient Instructions Indication:Hypocalcemia Start:07-Jan-2013 Instruction Type:Provider Instructions for Treatment Patient Instructions Indication:Diabetes mellitus type II, controlled, with no complications Start:08-Oct-2012 Instruction Type:Provider Instructions for Treatment [facility]; [facility] Work Phone: Instructions* Name Dates Details Patient Instructions Indication:Non-smoker Start:28-Mar-2022 Instruction Type:Provider Instructions for Treatment How to Access Health Informa tion Online using Patient Portal and [employer]rd [employer] Apps Indication:Non-smoker Start:28-Mar-2022 Instruction Type:Patient Education Patient Instructions Indication:Non-smoker Start:14-Mar-2022 Instruction Type:Provider Instructions for Treatment How to Access Health Informa tion Online using Patient Portal and [employer] Apps Indication:Non-smoker Start:14-Mar-2022 Instruction Type:Patient Education Patient Instructions Indication:Diabetes mellitus type II, controlled, with no complications Start:11-Nov-2021 Instruction Type:Provider Instructions for Treatment How to Access Health Informa tion Online using Patient Portal and [employer]rd [employer] Apps Indication:Diabetes mellitus type II, controlled, with no complications Start:11-Nov-2021 Instruction Type:Patient Education Patient Instructions Indication:BMI 26.0-26.9,adult Start:07-Aug-2021 Instruction Type:Provider Instructions for Treatment How to Access Health Informa tion Online using Patient Portal and [employer]rd [employer] Apps Indication:BMI 26.0-26.9,adult Start:07-Aug-2021 Instruction Type:Patient Education Patient Instructions Indication:Diabetes mellitus type II, controlled, with no complications Start:08-May-2021 Instruction Type:Provider Instructions for Treatment How to Access Health Informa tion Online using Patient Portal and [employer]rd [employer] Apps Indication:Diabetes mellitus type II, controlled, with no complications Start:08-May-2021 Instruction Type:Patient Education Patient Instructions Indication:Diabetes mellitus type II, controlled, with no complications Start:07-Jan-2021 Instruction Type:Provider Instructions for Treatment How to Access Health Informa tion Online using Patient Portal and [employer]rd [employer] Apps Indication:Diabetes mellitus type II, controlled, with no complications Start:07-Jan-2021 Instruction Type:Patient Education Patient Instructions Indication:Diabetes mellitus type II, controlled, with no complications Start:03-Sep-2020 Instruction Type:Provider Instructions for Treatment How to Access Health Informa tion Online using Patient Portal and [employer]rd [employer] Apps Indication:Diabetes mellitus type II, controlled, with no complications Start:03-Sep-2020 Instruction Type:Patient Education Patient Instructions Indication:BMI 25.0-25.9,adult Start:04-May-2020 Instruction Type:Provider Instructions for Treatment How to Access Health Informa tion Online using Patient Portal and [employer]rd [employer] Apps Indication:BMI 25.0-25.9,adult Start:04-May-2020 Instruction Type:Patient Education How to access health informa tion online Indication:BMI 25.0-25.9,adult Start:14-Mar-2020 Instruction Type:Patient Education How to access health informa tion online - Detail Indication:BMI 25.0-25.9,adult Start:14-Mar-2020 Instruction Type:Patient Education Patient Instructions Indication:BMI 25.0-25.9,adult Start:14-Mar-2020 Instruction Type:Provider Instructions for Treatment How to access health informa tion online Indication:Non-smoker Start:02-Feb-2020 Instruction Type:Patient Education How to access health informa tion online - Detail Indication:Non-smoker Start:02-Feb-2020 Instruction Type:Patient Education Patient Instructions Indication:Non-smoker Start:02-Feb-2020 Instruction Type:Provider Instructions for Treatment How to access health informa tion online Indication:Non-smoker Start:02-Nov-2019 Instruction Type:Patient Education How to access health informa tion online - Detail Indication:Non-smoker Start:02-Nov-2019 Instruction Type:Patient Education Patient Instructions Indication:Non-smoker Start:02-Nov-2019 Instruction Type:Provider Instructions for Treatment How to access health informa tion online Indication:BMI 26.0-26.9,adult Start:28-Apr-2019 Instruction Type:Patient Education How to access health informa tion online - Detail Indication:BMI 26.0-26.9,adult Start:28-Apr-2019 Instruction Type:Patient Education Patient Instructions Indication:BMI 26.0-26.9,adult Start:28-Apr-2019 Instruction Type:Provider Instructions for Treatment How to access health informa tion online Indication:Diabetes mellitus type II, controlled, with no complications Start:23-Dec-2018 Instruction Type:Patient Education How to access health informa tion online - Detail Indication:Diabetes mellitus type II, controlled, with no complications Start:23-Dec-2018 Instruction Type:Patient Education Patient Instructions Indication:Diabetes mellitus type II, controlled, with no complications Start:23-Dec-2018 Instruction Type:Provider Instructions for Treatment Patient Instructions Indication:Non-smoker Start:30-Aug-2018 Instruction Type:Provider Instructions for Treatment How to access health informa tion online - Detail Indication:Non-smoker Start:30-Aug-2018 Instruction Type:Patient Education How to access health informa tion online Indication:Non-smoker Start:30-Aug-2018 Instruction Type:Patient Education Patient Instructions Indication:Non-smoker Start:30-Aug-2018 Instruction Type:Provider Instructions for Treatment How to access health informa tion online Indication:Diabetes mellitus type II, controlled, with no complications Start:17-May-2018 Instruction Type:Patient Education How to access health informa tion online - Detail Indication:Diabetes mellitus type II, controlled, with no complications Start:17-May-2018 Instruction Type:Patient Education Patient Instructions Indication:Diabetes mellitus type II, controlled, with no complications Start:17-May-2018 Instruction Type:Provider Instructions for Treatment How to access health informa tion online Indication:BMI 25.0-25.9,adult Start:12-Feb-2018 Instruction Type:Patient Education How to access health informa tion online - Detail Indication:BMI 25.0-25.9,adult Start:12-Feb-2018 Instruction Type:Patient Education Patient Instructions Indication:BMI 25.0-25.9,adult Start:12-Feb-2018 Instruction Type:Provider Instructions for Treatment How to access health informa tion online Indication:Diabetes mellitus type II, controlled, with no complications Start:17-Jul-2017 Instruction Type:Patient Education How to access health informa tion online - Detail Indication:Diabetes mellitus type II, controlled, with no complications Start:17-Jul-2017 Instruction Type:Patient Education Patient Instructions Indication:Diabetes mellitus type II, controlled, with no complications Start:17-Jul-2017 Instruction Type:Provider Instructions for Treatment How to access health informa tion online Indication:Non-smoker Start:10-Jul-2017 Instruction Type:Patient Education How to access health informa tion online - Detail Indication:Non-smoker Start:10-Jul-2017 Instruction Type:Patient Education Patient Instructions Indication:Non-smoker Start:10-Jul-2017 Instruction Type:Provider Instructions for Treatment How to access health informa tion online Indication:Diabetes mellitus type II, controlled, with no complications Start:17-Apr-2017 Instruction Type:Patient Education How to access health informa tion online - Detail Indication:Diabetes mellitus type II, controlled, with no complications Start:17-Apr-2017 Instruction Type:Patient Education Patient Instructions Indication:Diabetes mellitus type II, controlled, with no complications Start:17-Apr-2017 Instruction Type:Provider Instructions for Treatment How to access health informa tion online Indication:Tobacco abuse, 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) Start:27-Mar-2017 Instruction Type:Patient Education How to access health informa tion online - Detail Indication:Tobacco abuse, 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) Start:27-Mar-2017 Instruction Type:Patient Education Patient Instructions Indication:Tobacco abuse, 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) Start:27-Mar-2017 Instruction Type:Provider Instructions for Treatment How to access health informa tion online Indication:Diabetes mellitus type II, controlled, with no complications Start:09-Oct-2016 Instruction Type:Patient Education How to access health informa tion online - Detail Indication:Diabetes mellitus type II, controlled, with no complications Start:09-Oct-2016 Instruction Type:Patient Education How to access health informa tion online - Detail Indication:Diabetes mellitus type II, controlled, with no complications Start:09-Oct-2016 Instruction Type:Patient Education Patient Instructions Indication:Diabetes mellitus type II, controlled, with no complications Start:09-Oct-2016 Instruction Type:Provider Instructions for Treatment How to access health informa tion online Indication:Diabetes mellitus type II, controlled, with no complications Start:11-Jun-2016 Instruction Type:Patient Education How to access health informa tion online - Detail Indication:Diabetes mellitus type II, controlled, with no complications Start:11-Jun-2016 Instruction Type:Patient Education Patient Instructions Indication:Diabetes mellitus type II, controlled, with no complications Start:11-Jun-2016 Instruction Type:Provider Instructions for Treatment How to access health informa tion online Indication:Body mass index (BMI) 24.0-24.9, adult Start:22-Apr-2016 Instruction Type:Patient Education How to access health informa tion online - Detail Indication:Body mass index (BMI) 24.0-24.9, adult Start:22-Apr-2016 Instruction Type:Patient Education Patient Instructions Indication:Body mass index (BMI) 24.0-24.9, adult Start:22-Apr-2016 Instruction Type:Provider Instructions for Treatment How to access health informa tion online Indication:Diabetes mellitus type II, controlled, with no complications Start:10-Mar-2016 Instruction Type:Patient Education How to access health informa tion online - Detail Indication:Diabetes mellitus type II, controlled, with no complications Start:10-Mar-2016 Instruction Type:Patient Education Patient Instructions Indication:Diabetes mellitus type II, controlled, with no complications Start:10-Mar-2016 Instruction Type:Provider Instructions for Treatment How to access health informa tion online Indication:Diabetes mellitus type II, controlled, with no complications Start:16-Jul-2015 Instruction Type:Patient Education How to access health informa tion online - Detail Indication:Diabetes mellitus type II, controlled, with no complications Start:16-Jul-2015 Instruction Type:Patient Education Patient Instructions Indication:Diabetes mellitus type II, controlled, with no complications Start:16-Jul-2015 Instruction Type:Provider Instructions for Treatment How to access health informa tion online Indication:Diabetes mellitus type II, controlled, with no complications Start:26-Dec-2014 Instruction Type:Patient Education How to access health informa tion online - Detail Indication:Diabetes mellitus type II, controlled, with no complications Start:26-Dec-2014 Instruction Type:Patient Education Patient Instructions Indication:Diabetes mellitus type II, controlled, with no complications Start:26-Dec-2014 Instruction Type:Provider Instructions for Treatment How to access health informa tion online Indication:Diabetes mellitus type II, controlled, with no complications Start:29-Aug-2014 Instruction Type:Patient Education How to access health informa tion online - Detail Indication:Diabetes mellitus type II, controlled, with no complications Start:29-Aug-2014 Instruction Type:Patient Education Patient Instructions Indication:Diabetes mellitus type II, controlled, with no complications Start:29-Aug-2014 Instruction Type:Provider Instructions for Treatment Weight check (V05.4) Indication:Weight loss Start:08-Jun-2014 Instruction Type:Nursing Car e Education How to access health informa tion online Indication:Diabetes mellitus type II, controlled, with no complications Start:27-Apr-2014 Instruction Type:Patient Education How to access health informa tion online - Detail Indication:Diabetes mellitus type II, controlled, with no complications Start:27-Apr-2014 Instruction Type:Patient Education Patient Instructions Indication:Diabetes mellitus type II, controlled, with no complications Start:27-Apr-2014 Instruction Type:Provider Instructions for Treatment How to access health informa tion online - Detail Indication:Diabetes mellitus type II, controlled, with no complications Start:09-Dec-2013 Instruction Type:Patient Education Patient Instructions Indication:Hypocalcemia Start:07-Jan-2013 Instruction Type:Provider Instructions for Treatment Patient Instructions Indication:Diabetes mellitus type II, controlled, with no complications Start:08-Oct-2012 Instruction Type:Provider Instructions for Treatment [facility]; [facility] Work Phone: Instructions* Name Dates Details Patient Instructions Indication:Non-smoker Start:28-Mar-2022 Instruction Type:Provider Instructions for Treatment How to Access Health Informa tion Online using Patient Portal and [employer] Apps Indication:Non-smoker Start:28-Mar-2022 Instruction Type:Patient Education Patient Instructions Indication:Non-smoker Start:14-Mar-2022 Instruction Type:Provider Instructions for Treatment How to Access Health Informa tion Online using Patient Portal and [employer] Apps Indication:Non-smoker Start:14-Mar-2022 Instruction Type:Patient Education Patient Instructions Indication:Diabetes mellitus type II, controlled, with no complications Start:11-Nov-2021 Instruction Type:Provider Instructions for Treatment How to Access Health Informa tion Online using Patient Portal and [employer]rd [employer] Apps Indication:Diabetes mellitus type II, controlled, with no complications Start:11-Nov-2021 Instruction Type:Patient Education Patient Instructions Indication:BMI 26.0-26.9,adult Start:07-Aug-2021 Instruction Type:Provider Instructions for Treatment How to Access Health Informa tion Online using Patient Portal and [employer]rd [employer] Apps Indication:BMI 26.0-26.9,adult Start:07-Aug-2021 Instruction Type:Patient Education Patient Instructions Indication:Diabetes mellitus type II, controlled, with no complications Start:08-May-2021 Instruction Type:Provider Instructions for Treatment How to Access Health Informa tion Online using Patient Portal and [employer]rd [employer] Apps Indication:Diabetes mellitus type II, controlled, with no complications Start:08-May-2021 Instruction Type:Patient Education Patient Instructions Indication:Diabetes mellitus type II, controlled, with no complications Start:07-Jan-2021 Instruction Type:Provider Instructions for Treatment How to Access Health Informa tion Online using Patient Portal and [employer] Apps Indication:Diabetes mellitus type II, controlled, with no complications Start:07-Jan-2021 Instruction Type:Patient Education Patient Instructions Indication:Diabetes mellitus type II, controlled, with no complications Start:03-Sep-2020 Instruction Type:Provider Instructions for Treatment How to Access Health Informa tion Online using Patient Portal and [employer]rd [employer] Apps Indication:Diabetes mellitus type II, controlled, with no complications Start:03-Sep-2020 Instruction Type:Patient Education Patient Instructions Indication:BMI 25.0-25.9,adult Start:04-May-2020 Instruction Type:Provider Instructions for Treatment How to Access Health Informa tion Online using Patient Portal and [employer]rd [employer] Apps Indication:BMI 25.0-25.9,adult Start:04-May-2020 Instruction Type:Patient Education How to access health informa tion online Indication:BMI 25.0-25.9,adult Start:14-Mar-2020 Instruction Type:Patient Education How to access health informa tion online - Detail Indication:BMI 25.0-25.9,adult Start:14-Mar-2020 Instruction Type:Patient Education Patient Instructions Indication:BMI 25.0-25.9,adult Start:14-Mar-2020 Instruction Type:Provider Instructions for Treatment How to access health informa tion online Indication:Non-smoker Start:02-Feb-2020 Instruction Type:Patient Education How to access health informa tion online - Detail Indication:Non-smoker Start:02-Feb-2020 Instruction Type:Patient Education Patient Instructions Indication:Non-smoker Start:02-Feb-2020 Instruction Type:Provider Instructions for Treatment How to access health informa tion online Indication:Non-smoker Start:02-Nov-2019 Instruction Type:Patient Education How to access health informa tion online - Detail Indication:Non-smoker Start:02-Nov-2019 Instruction Type:Patient Education Patient Instructions Indication:Non-smoker Start:02-Nov-2019 Instruction Type:Provider Instructions for Treatment How to access health informa tion online Indication:BMI 26.0-26.9,adult Start:28-Apr-2019 Instruction Type:Patient Education How to access health informa tion online - Detail Indication:BMI 26.0-26.9,adult Start:28-Apr-2019 Instruction Type:Patient Education Patient Instructions Indication:BMI 26.0-26.9,adult Start:28-Apr-2019 Instruction Type:Provider Instructions for Treatment How to access health informa tion online Indication:Diabetes mellitus type II, controlled, with no complications Start:23-Dec-2018 Instruction Type:Patient Education How to access health informa tion online - Detail Indication:Diabetes mellitus type II, controlled, with no complications Start:23-Dec-2018 Instruction Type:Patient Education Patient Instructions Indication:Diabetes mellitus type II, controlled, with no complications Start:23-Dec-2018 Instruction Type:Provider Instructions for Treatment Patient Instructions Indication:Non-smoker Start:30-Aug-2018 Instruction Type:Provider Instructions for Treatment How to access health informa tion online - Detail Indication:Non-smoker Start:30-Aug-2018 Instruction Type:Patient Education How to access health informa tion online Indication:Non-smoker Start:30-Aug-2018 Instruction Type:Patient Education Patient Instructions Indication:Non-smoker Start:30-Aug-2018 Instruction Type:Provider Instructions for Treatment How to access health informa tion online Indication:Diabetes mellitus type II, controlled, with no complications Start:17-May-2018 Instruction Type:Patient Education How to access health informa tion online - Detail Indication:Diabetes mellitus type II, controlled, with no complications Start:17-May-2018 Instruction Type:Patient Education Patient Instructions Indication:Diabetes mellitus type II, controlled, with no complications Start:17-May-2018 Instruction Type:Provider Instructions for Treatment How to access health informa tion online Indication:BMI 25.0-25.9,adult Start:12-Feb-2018 Instruction Type:Patient Education How to access health informa tion online - Detail Indication:BMI 25.0-25.9,adult Start:12-Feb-2018 Instruction Type:Patient Education Patient Instructions Indication:BMI 25.0-25.9,adult Start:12-Feb-2018 Instruction Type:Provider Instructions for Treatment How to access health informa tion online Indication:Diabetes mellitus type II, controlled, with no complications Start:17-Jul-2017 Instruction Type:Patient Education How to access health informa tion online - Detail Indication:Diabetes mellitus type II, controlled, with no complications Start:17-Jul-2017 Instruction Type:Patient Education Patient Instructions Indication:Diabetes mellitus type II, controlled, with no complications Start:17-Jul-2017 Instruction Type:Provider Instructions for Treatment How to access health informa tion online Indication:Non-smoker Start:10-Jul-2017 Instruction Type:Patient Education How to access health informa tion online - Detail Indication:Non-smoker Start:10-Jul-2017 Instruction Type:Patient Education Patient Instructions Indication:Non-smoker Start:10-Jul-2017 Instruction Type:Provider Instructions for Treatment How to access health informa tion online Indication:Diabetes mellitus type II, controlled, with no complications Start:17-Apr-2017 Instruction Type:Patient Education How to access health informa tion online - Detail Indication:Diabetes mellitus type II, controlled, with no complications Start:17-Apr-2017 Instruction Type:Patient Education Patient Instructions Indication:Diabetes mellitus type II, controlled, with no complications Start:17-Apr-2017 Instruction Type:Provider Instructions for Treatment How to access health informa tion online Indication:Tobacco abuse, 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) Start:27-Mar-2017 Instruction Type:Patient Education How to access health informa tion online - Detail Indication:Tobacco abuse, 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) Start:27-Mar-2017 Instruction Type:Patient Education Patient Instructions Indication:Tobacco abuse, 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) Start:27-Mar-2017 Instruction Type:Provider Instructions for Treatment How to access health informa tion online Indication:Diabetes mellitus type II, controlled, with no complications Start:09-Oct-2016 Instruction Type:Patient Education How to access health informa tion online - Detail Indication:Diabetes mellitus type II, controlled, with no complications Start:09-Oct-2016 Instruction Type:Patient Education How to access health informa tion online - Detail Indication:Diabetes mellitus type II, controlled, with no complications Start:09-Oct-2016 Instruction Type:Patient Education Patient Instructions Indication:Diabetes mellitus type II, controlled, with no complications Start:09-Oct-2016 Instruction Type:Provider Instructions for Treatment How to access health informa tion online Indication:Diabetes mellitus type II, controlled, with no complications Start:11-Jun-2016 Instruction Type:Patient Education How to access health informa tion online - Detail Indication:Diabetes mellitus type II, controlled, with no complications Start:11-Jun-2016 Instruction Type:Patient Education Patient Instructions Indication:Diabetes mellitus type II, controlled, with no complications Start:11-Jun-2016 Instruction Type:Provider Instructions for Treatment How to access health informa tion online Indication:Body mass index (BMI) 24.0-24.9, adult Start:22-Apr-2016 Instruction Type:Patient Education How to access health informa tion online - Detail Indication:Body mass index (BMI) 24.0-24.9, adult Start:22-Apr-2016 Instruction Type:Patient Education Patient Instructions Indication:Body mass index (BMI) 24.0-24.9, adult Start:22-Apr-2016 Instruction Type:Provider Instructions for Treatment How to access health informa tion online Indication:Diabetes mellitus type II, controlled, with no complications Start:10-Mar-2016 Instruction Type:Patient Education How to access health informa tion online - Detail Indication:Diabetes mellitus type II, controlled, with no complications Start:10-Mar-2016 Instruction Type:Patient Education Patient Instructions Indication:Diabetes mellitus type II, controlled, with no complications Start:10-Mar-2016 Instruction Type:Provider Instructions for Treatment How to access health informa tion online Indication:Diabetes mellitus type II, controlled, with no complications Start:16-Jul-2015 Instruction Type:Patient Education How to access health informa tion online - Detail Indication:Diabetes mellitus type II, controlled, with no complications Start:16-Jul-2015 Instruction Type:Patient Education Patient Instructions Indication:Diabetes mellitus type II, controlled, with no complications Start:16-Jul-2015 Instruction Type:Provider Instructions for Treatment How to access health informa tion online Indication:Diabetes mellitus type II, controlled, with no complications Start:26-Dec-2014 Instruction Type:Patient Education How to access health informa tion online - Detail Indication:Diabetes mellitus type II, controlled, with no complications Start:26-Dec-2014 Instruction Type:Patient Education Patient Instructions Indication:Diabetes mellitus type II, controlled, with no complications Start:26-Dec-2014 Instruction Type:Provider Instructions for Treatment How to access health informa tion online Indication:Diabetes mellitus type II, controlled, with no complications Start:29-Aug-2014 Instruction Type:Patient Education How to access health informa tion online - Detail Indication:Diabetes mellitus type II, controlled, with no complications Start:29-Aug-2014 Instruction Type:Patient Education Patient Instructions Indication:Diabetes mellitus type II, controlled, with no complications Start:29-Aug-2014 Instruction Type:Provider Instructions for Treatment Weight check (V05.4) Indication:Weight loss Start:08-Jun-2014 Instruction Type:Nursing Car e Education How to access health informa tion online Indication:Diabetes mellitus type II, controlled, with no complications Start:27-Apr-2014 Instruction Type:Patient Education How to access health informa tion online - Detail Indication:Diabetes mellitus type II, controlled, with no complications Start:27-Apr-2014 Instruction Type:Patient Education Patient Instructions Indication:Diabetes mellitus type II, controlled, with no complications Start:27-Apr-2014 Instruction Type:Provider Instructions for Treatment How to access health informa tion online - Detail Indication:Diabetes mellitus type II, controlled, with no complications Start:09-Dec-2013 Instruction Type:Patient Education Patient Instructions Indication:Hypocalcemia Start:07-Jan-2013 Instruction Type:Provider Instructions for Treatment Patient Instructions Indication:Diabetes mellitus type II, controlled, with no complications Start:08-Oct-2012 Instruction Type:Provider Instructions for Treatment [facility]; [facility] Work Phone: Instructions* Name Dates Details Patient Instructions Indication:Diabetes mellitus type II, controlled, with no complications Start:27-Jun-2022 Instruction Type:Provider Instructions for Treatment How to Access Health Informa tion Online using Patient Portal and 3rd [employer] Apps Indication:Diabetes mellitus type II, controlled, with no complications Start:27-Jun-2022 Instruction Type:Patient Education Patient Instructions Indication:Non-smoker Start:28-Mar-2022 Instruction Type:Provider Instructions for Treatment How to Access Health Informa tion Online using Patient Portal and 3rd [employer] Apps Indication:Non-smoker Start:28-Mar-2022 Instruction Type:Patient Education Patient Instructions Indication:Non-smoker Start:14-Mar-2022 Instruction Type:Provider Instructions for Treatment How to Access Health Informa tion Online using Patient Portal and [employer]rd [employer] Apps Indication:Non-smoker Start:14-Mar-2022 Instruction Type:Patient Education Patient Instructions Indication:Diabetes mellitus type II, controlled, with no complications Start:11-Nov-2021 Instruction Type:Provider Instructions for Treatment How to Access Health Informa tion Online using Patient Portal and [employer]rd [employer] Apps Indication:Diabetes mellitus type II, controlled, with no complications Start:11-Nov-2021 Instruction Type:Patient Education Patient Instructions Indication:BMI 26.0-26.9,adult Start:07-Aug-2021 Instruction Type:Provider Instructions for Treatment How to Access Health Informa tion Online using Patient Portal and [employer]rd [employer] Apps Indication:BMI 26.0-26.9,adult Start:07-Aug-2021 Instruction Type:Patient Education Patient Instructions Indication:Diabetes mellitus type II, controlled, with no complications Start:08-May-2021 Instruction Type:Provider Instructions for Treatment How to Access Health Informa tion Online using Patient Portal and [employer]rd [employer] Apps Indication:Diabetes mellitus type II, controlled, with no complications Start:08-May-2021 Instruction Type:Patient Education Patient Instructions Indication:Diabetes mellitus type II, controlled, with no complications Start:07-Jan-2021 Instruction Type:Provider Instructions for Treatment How to Access Health Informa tion Online using Patient Portal and 3rd [employer] Apps Indication:Diabetes mellitus type II, controlled, with no complications Start:07-Jan-2021 Instruction Type:Patient Education Patient Instructions Indication:Diabetes mellitus type II, controlled, with no complications Start:03-Sep-2020 Instruction Type:Provider Instructions for Treatment How to Access Health Informa tion Online using Patient Portal and [employer]rd [employer] Apps Indication:Diabetes mellitus type II, controlled, with no complications Start:03-Sep-2020 Instruction Type:Patient Education Patient Instructions Indication:BMI 25.0-25.9,adult Start:04-May-2020 Instruction Type:Provider Instructions for Treatment How to Access Health Informa tion Online using Patient Portal and [employer]rd [employer] Apps Indication:BMI 25.0-25.9,adult Start:04-May-2020 Instruction Type:Patient Education How to access health informa tion online Indication:BMI 25.0-25.9,adult Start:14-Mar-2020 Instruction Type:Patient Education How to access health informa tion online - Detail Indication:BMI 25.0-25.9,adult Start:14-Mar-2020 Instruction Type:Patient Education Patient Instructions Indication:BMI 25.0-25.9,adult Start:14-Mar-2020 Instruction Type:Provider Instructions for Treatment How to access health informa tion online Indication:Non-smoker Start:02-Feb-2020 Instruction Type:Patient Education How to access health informa tion online - Detail Indication:Non-smoker Start:02-Feb-2020 Instruction Type:Patient Education Patient Instructions Indication:Non-smoker Start:02-Feb-2020 Instruction Type:Provider Instructions for Treatment How to access health informa tion online Indication:Non-smoker Start:02-Nov-2019 Instruction Type:Patient Education How to access health informa tion online - Detail Indication:Non-smoker Start:02-Nov-2019 Instruction Type:Patient Education Patient Instructions Indication:Non-smoker Start:02-Nov-2019 Instruction Type:Provider Instructions for Treatment How to access health informa tion online Indication:BMI 26.0-26.9,adult Start:28-Apr-2019 Instruction Type:Patient Education How to access health informa tion online - Detail Indication:BMI 26.0-26.9,adult Start:28-Apr-2019 Instruction Type:Patient Education Patient Instructions Indication:BMI 26.0-26.9,adult Start:28-Apr-2019 Instruction Type:Provider Instructions for Treatment How to access health informa tion online Indication:Diabetes mellitus type II, controlled, with no complications Start:23-Dec-2018 Instruction Type:Patient Education How to access health informa tion online - Detail Indication:Diabetes mellitus type II, controlled, with no complications Start:23-Dec-2018 Instruction Type:Patient Education Patient Instructions Indication:Diabetes mellitus type II, controlled, with no complications Start:23-Dec-2018 Instruction Type:Provider Instructions for Treatment Patient Instructions Indication:Non-smoker Start:30-Aug-2018 Instruction Type:Provider Instructions for Treatment How to access health informa tion online - Detail Indication:Non-smoker Start:30-Aug-2018 Instruction Type:Patient Education How to access health informa tion online Indication:Non-smoker Start:30-Aug-2018 Instruction Type:Patient Education Patient Instructions Indication:Non-smoker Start:30-Aug-2018 Instruction Type:Provider Instructions for Treatment How to access health informa tion online Indication:Diabetes mellitus type II, controlled, with no complications Start:17-May-2018 Instruction Type:Patient Education How to access health informa tion online - Detail Indication:Diabetes mellitus type II, controlled, with no complications Start:17-May-2018 Instruction Type:Patient Education Patient Instructions Indication:Diabetes mellitus type II, controlled, with no complications Start:17-May-2018 Instruction Type:Provider Instructions for Treatment How to access health informa tion online Indication:BMI 25.0-25.9,adult Start:12-Feb-2018 Instruction Type:Patient Education How to access health informa tion online - Detail Indication:BMI 25.0-25.9,adult Start:12-Feb-2018 Instruction Type:Patient Education Patient Instructions Indication:BMI 25.0-25.9,adult Start:12-Feb-2018 Instruction Type:Provider Instructions for Treatment How to access health informa tion online Indication:Diabetes mellitus type II, controlled, with no complications Start:17-Jul-2017 Instruction Type:Patient Education How to access health informa tion online - Detail Indication:Diabetes mellitus type II, controlled, with no complications Start:17-Jul-2017 Instruction Type:Patient Education Patient Instructions Indication:Diabetes mellitus type II, controlled, with no complications Start:17-Jul-2017 Instruction Type:Provider Instructions for Treatment How to access health informa tion online Indication:Non-smoker Start:10-Jul-2017 Instruction Type:Patient Education How to access health informa tion online - Detail Indication:Non-smoker Start:10-Jul-2017 Instruction Type:Patient Education Patient Instructions Indication:Non-smoker Start:10-Jul-2017 Instruction Type:Provider Instructions for Treatment How to access health informa tion online Indication:Diabetes mellitus type II, controlled, with no complications Start:17-Apr-2017 Instruction Type:Patient Education How to access health informa tion online - Detail Indication:Diabetes mellitus type II, controlled, with no complications Start:17-Apr-2017 Instruction Type:Patient Education Patient Instructions Indication:Diabetes mellitus type II, controlled, with no complications Start:17-Apr-2017 Instruction Type:Provider Instructions for Treatment How to access health informa tion online Indication:Tobacco abuse, 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) Start:27-Mar-2017 Instruction Type:Patient Education How to access health informa tion online - Detail Indication:Tobacco abuse, 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) Start:27-Mar-2017 Instruction Type:Patient Education Patient Instructions Indication:Tobacco abuse, 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) Start:27-Mar-2017 Instruction Type:Provider Instructions for Treatment How to access health informa tion online Indication:Diabetes mellitus type II, controlled, with no complications Start:09-Oct-2016 Instruction Type:Patient Education How to access health informa tion online - Detail Indication:Diabetes mellitus type II, controlled, with no complications Start:09-Oct-2016 Instruction Type:Patient Education How to access health informa tion online - Detail Indication:Diabetes mellitus type II, controlled, with no complications Start:09-Oct-2016 Instruction Type:Patient Education Patient Instructions Indication:Diabetes mellitus type II, controlled, with no complications Start:09-Oct-2016 Instruction Type:Provider Instructions for Treatment How to access health informa tion online Indication:Diabetes mellitus type II, controlled, with no complications Start:11-Jun-2016 Instruction Type:Patient Education How to access health informa tion online - Detail Indication:Diabetes mellitus type II, controlled, with no complications Start:11-Jun-2016 Instruction Type:Patient Education Patient Instructions Indication:Diabetes mellitus type II, controlled, with no complications Start:11-Jun-2016 Instruction Type:Provider Instructions for Treatment How to access health informa tion online Indication:Body mass index (BMI) 24.0-24.9, adult Start:22-Apr-2016 Instruction Type:Patient Education How to access health informa tion online - Detail Indication:Body mass index (BMI) 24.0-24.9, adult Start:22-Apr-2016 Instruction Type:Patient Education Patient Instructions Indication:Body mass index (BMI) 24.0-24.9, adult Start:22-Apr-2016 Instruction Type:Provider Instructions for Treatment How to access health informa tion online Indication:Diabetes mellitus type II, controlled, with no complications Start:10-Mar-2016 Instruction Type:Patient Education How to access health informa tion online - Detail Indication:Diabetes mellitus type II, controlled, with no complications Start:10-Mar-2016 Instruction Type:Patient Education Patient Instructions Indication:Diabetes mellitus type II, controlled, with no complications Start:10-Mar-2016 Instruction Type:Provider Instructions for Treatment How to access health informa tion online Indication:Diabetes mellitus type II, controlled, with no complications Start:16-Jul-2015 Instruction Type:Patient Education How to access health informa tion online - Detail Indication:Diabetes mellitus type II, controlled, with no complications Start:16-Jul-2015 Instruction Type:Patient Education Patient Instructions Indication:Diabetes mellitus type II, controlled, with no complications Start:16-Jul-2015 Instruction Type:Provider Instructions for Treatment How to access health informa tion online Indication:Diabetes mellitus type II, controlled, with no complications Start:26-Dec-2014 Instruction Type:Patient Education How to access health informa tion online - Detail Indication:Diabetes mellitus type II, controlled, with no complications Start:26-Dec-2014 Instruction Type:Patient Education Patient Instructions Indication:Diabetes mellitus type II, controlled, with no complications Start:26-Dec-2014 Instruction Type:Provider Instructions for Treatment How to access health informa tion online Indication:Diabetes mellitus type II, controlled, with no complications Start:29-Aug-2014 Instruction Type:Patient Education How to access health informa tion online - Detail Indication:Diabetes mellitus type II, controlled, with no complications Start:29-Aug-2014 Instruction Type:Patient Education Patient Instructions Indication:Diabetes mellitus type II, controlled, with no complications Start:29-Aug-2014 Instruction Type:Provider Instructions for Treatment Weight check (V05.4) Indication:Weight loss Start:08-Jun-2014 Instruction Type:Nursing Car e Education How to access health informa tion online Indication:Diabetes mellitus type II, controlled, with no complications Start:27-Apr-2014 Instruction Type:Patient Education How to access health informa tion online - Detail Indication:Diabetes mellitus type II, controlled, with no complications Start:27-Apr-2014 Instruction Type:Patient Education Patient Instructions Indication:Diabetes mellitus type II, controlled, with no complications Start:27-Apr-2014 Instruction Type:Provider Instructions for Treatment How to access health informa tion online - Detail Indication:Diabetes mellitus type II, controlled, with no complications Start:09-Dec-2013 Instruction Type:Patient Education Patient Instructions Indication:Hypocalcemia Start:07-Jan-2013 Instruction Type:Provider Instructions for Treatment Patient Instructions Indication:Diabetes mellitus type II, controlled, with no complications Start:08-Oct-2012 Instruction Type:Provider Instructions for Treatment [facility]; [facility] Work Phone: Instructions* Name Dates Details Patient Instructions Indication:Diabetes mellitus type II, controlled, with no complications Start:27-Jun-2022 Instruction Type:Provider Instructions for Treatment How to Access Health Informa tion Online using Patient Portal and [employer]rd [employer] Apps Indication:Diabetes mellitus type II, controlled, with no complications Start:27-Jun-2022 Instruction Type:Patient Education Patient Instructions Indication:Non-smoker Start:28-Mar-2022 Instruction Type:Provider Instructions for Treatment How to Access Health Informa tion Online using Patient Portal and [employer]rd [employer] Apps Indication:Non-smoker Start:28-Mar-2022 Instruction Type:Patient Education Patient Instructions Indication:Non-smoker Start:14-Mar-2022 Instruction Type:Provider Instructions for Treatment How to Access Health Informa tion Online using Patient Portal and [employer]rd [employer] Apps Indication:Non-smoker Start:14-Mar-2022 Instruction Type:Patient Education Patient Instructions Indication:Diabetes mellitus type II, controlled, with no complications Start:11-Nov-2021 Instruction Type:Provider Instructions for Treatment How to Access Health Informa tion Online using Patient Portal and [employer]rd [employer] Apps Indication:Diabetes mellitus type II, controlled, with no complications Start:11-Nov-2021 Instruction Type:Patient Education Patient Instructions Indication:BMI 26.0-26.9,adult Start:07-Aug-2021 Instruction Type:Provider Instructions for Treatment How to Access Health Informa tion Online using Patient Portal and [employer]rd [employer] Apps Indication:BMI 26.0-26.9,adult Start:07-Aug-2021 Instruction Type:Patient Education Patient Instructions Indication:Diabetes mellitus type II, controlled, with no complications Start:08-May-2021 Instruction Type:Provider Instructions for Treatment How to Access Health Informa tion Online using Patient Portal and [employer]rd [employer] Apps Indication:Diabetes mellitus type II, controlled, with no complications Start:08-May-2021 Instruction Type:Patient Education Patient Instructions Indication:Diabetes mellitus type II, controlled, with no complications Start:07-Jan-2021 Instruction Type:Provider Instructions for Treatment How to Access Health Informa tion Online using Patient Portal and [employer]rd [employer] Apps Indication:Diabetes mellitus type II, controlled, with no complications Start:07-Jan-2021 Instruction Type:Patient Education Patient Instructions Indication:Diabetes mellitus type II, controlled, with no complications Start:03-Sep-2020 Instruction Type:Provider Instructions for Treatment How to Access Health Informa tion Online using Patient Portal and [employer]rd [employer] Apps Indication:Diabetes mellitus type II, controlled, with no complications Start:03-Sep-2020 Instruction Type:Patient Education Patient Instructions Indication:BMI 25.0-25.9,adult Start:04-May-2020 Instruction Type:Provider Instructions for Treatment How to Access Health Informa tion Online using Patient Portal and [employer]rd [employer] Apps Indication:BMI 25.0-25.9,adult Start:04-May-2020 Instruction Type:Patient Education How to access health informa tion online Indication:BMI 25.0-25.9,adult Start:14-Mar-2020 Instruction Type:Patient Education How to access health informa tion online - Detail Indication:BMI 25.0-25.9,adult Start:14-Mar-2020 Instruction Type:Patient Education Patient Instructions Indication:BMI 25.0-25.9,adult Start:14-Mar-2020 Instruction Type:Provider Instructions for Treatment How to access health informa tion online Indication:Non-smoker Start:02-Feb-2020 Instruction Type:Patient Education How to access health informa tion online - Detail Indication:Non-smoker Start:02-Feb-2020 Instruction Type:Patient Education Patient Instructions Indication:Non-smoker Start:02-Feb-2020 Instruction Type:Provider Instructions for Treatment How to access health informa tion online Indication:Non-smoker Start:02-Nov-2019 Instruction Type:Patient Education How to access health informa tion online - Detail Indication:Non-smoker Start:02-Nov-2019 Instruction Type:Patient Education Patient Instructions Indication:Non-smoker Start:02-Nov-2019 Instruction Type:Provider Instructions for Treatment How to access health informa tion online Indication:BMI 26.0-26.9,adult Start:28-Apr-2019 Instruction Type:Patient Education How to access health informa tion online - Detail Indication:BMI 26.0-26.9,adult Start:28-Apr-2019 Instruction Type:Patient Education Patient Instructions Indication:BMI 26.0-26.9,adult Start:28-Apr-2019 Instruction Type:Provider Instructions for Treatment How to access health informa tion online Indication:Diabetes mellitus type II, controlled, with no complications Start:23-Dec-2018 Instruction Type:Patient Education How to access health informa tion online - Detail Indication:Diabetes mellitus type II, controlled, with no complications Start:23-Dec-2018 Instruction Type:Patient Education Patient Instructions Indication:Diabetes mellitus type II, controlled, with no complications Start:23-Dec-2018 Instruction Type:Provider Instructions for Treatment Patient Instructions Indication:Non-smoker Start:30-Aug-2018 Instruction Type:Provider Instructions for Treatment How to access health informa tion online - Detail Indication:Non-smoker Start:30-Aug-2018 Instruction Type:Patient Education How to access health informa tion online Indication:Non-smoker Start:30-Aug-2018 Instruction Type:Patient Education Patient Instructions Indication:Non-smoker Start:30-Aug-2018 Instruction Type:Provider Instructions for Treatment How to access health informa tion online Indication:Diabetes mellitus type II, controlled, with no complications Start:17-May-2018 Instruction Type:Patient Education How to access health informa tion online - Detail Indication:Diabetes mellitus type II, controlled, with no complications Start:17-May-2018 Instruction Type:Patient Education Patient Instructions Indication:Diabetes mellitus type II, controlled, with no complications Start:17-May-2018 Instruction Type:Provider Instructions for Treatment How to access health informa tion online Indication:BMI 25.0-25.9,adult Start:12-Feb-2018 Instruction Type:Patient Education How to access health informa tion online - Detail Indication:BMI 25.0-25.9,adult Start:12-Feb-2018 Instruction Type:Patient Education Patient Instructions Indication:BMI 25.0-25.9,adult Start:12-Feb-2018 Instruction Type:Provider Instructions for Treatment How to access health informa tion online Indication:Diabetes mellitus type II, controlled, with no complications Start:17-Jul-2017 Instruction Type:Patient Education How to access health informa tion online - Detail Indication:Diabetes mellitus type II, controlled, with no complications Start:17-Jul-2017 Instruction Type:Patient Education Patient Instructions Indication:Diabetes mellitus type II, controlled, with no complications Start:17-Jul-2017 Instruction Type:Provider Instructions for Treatment How to access health informa tion online Indication:Non-smoker Start:10-Jul-2017 Instruction Type:Patient Education How to access health informa tion online - Detail Indication:Non-smoker Start:10-Jul-2017 Instruction Type:Patient Education Patient Instructions Indication:Non-smoker Start:10-Jul-2017 Instruction Type:Provider Instructions for Treatment How to access health informa tion online Indication:Diabetes mellitus type II, controlled, with no complications Start:17-Apr-2017 Instruction Type:Patient Education How to access health informa tion online - Detail Indication:Diabetes mellitus type II, controlled, with no complications Start:17-Apr-2017 Instruction Type:Patient Education Patient Instructions Indication:Diabetes mellitus type II, controlled, with no complications Start:17-Apr-2017 Instruction Type:Provider Instructions for Treatment How to access health informa tion online Indication:Tobacco abuse, 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) Start:27-Mar-2017 Instruction Type:Patient Education How to access health informa tion online - Detail Indication:Tobacco abuse, 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) Start:27-Mar-2017 Instruction Type:Patient Education Patient Instructions Indication:Tobacco abuse, 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) Start:27-Mar-2017 Instruction Type:Provider Instructions for Treatment How to access health informa tion online Indication:Diabetes mellitus type II, controlled, with no complications Start:09-Oct-2016 Instruction Type:Patient Education How to access health informa tion online - Detail Indication:Diabetes mellitus type II, controlled, with no complications Start:09-Oct-2016 Instruction Type:Patient Education How to access health informa tion online - Detail Indication:Diabetes mellitus type II, controlled, with no complications Start:09-Oct-2016 Instruction Type:Patient Education Patient Instructions Indication:Diabetes mellitus type II, controlled, with no complications Start:09-Oct-2016 Instruction Type:Provider Instructions for Treatment How to access health informa tion online Indication:Diabetes mellitus type II, controlled, with no complications Start:11-Jun-2016 Instruction Type:Patient Education How to access health informa tion online - Detail Indication:Diabetes mellitus type II, controlled, with no complications Start:11-Jun-2016 Instruction Type:Patient Education Patient Instructions Indication:Diabetes mellitus type II, controlled, with no complications Start:11-Jun-2016 Instruction Type:Provider Instructions for Treatment How to access health informa tion online Indication:Body mass index (BMI) 24.0-24.9, adult Start:22-Apr-2016 Instruction Type:Patient Education How to access health informa tion online - Detail Indication:Body mass index (BMI) 24.0-24.9, adult Start:22-Apr-2016 Instruction Type:Patient Education Patient Instructions Indication:Body mass index (BMI) 24.0-24.9, adult Start:22-Apr-2016 Instruction Type:Provider Instructions for Treatment How to access health informa tion online Indication:Diabetes mellitus type II, controlled, with no complications Start:10-Mar-2016 Instruction Type:Patient Education How to access health informa tion online - Detail Indication:Diabetes mellitus type II, controlled, with no complications Start:10-Mar-2016 Instruction Type:Patient Education Patient Instructions Indication:Diabetes mellitus type II, controlled, with no complications Start:10-Mar-2016 Instruction Type:Provider Instructions for Treatment How to access health informa tion online Indication:Diabetes mellitus type II, controlled, with no complications Start:16-Jul-2015 Instruction Type:Patient Education How to access health informa tion online - Detail Indication:Diabetes mellitus type II, controlled, with no complications Start:16-Jul-2015 Instruction Type:Patient Education Patient Instructions Indication:Diabetes mellitus type II, controlled, with no complications Start:16-Jul-2015 Instruction Type:Provider Instructions for Treatment How to access health informa tion online Indication:Diabetes mellitus type II, controlled, with no complications Start:26-Dec-2014 Instruction Type:Patient Education How to access health informa tion online - Detail Indication:Diabetes mellitus type II, controlled, with no complications Start:26-Dec-2014 Instruction Type:Patient Education Patient Instructions Indication:Diabetes mellitus type II, controlled, with no complications Start:26-Dec-2014 Instruction Type:Provider Instructions for Treatment How to access health informa tion online Indication:Diabetes mellitus type II, controlled, with no complications Start:29-Aug-2014 Instruction Type:Patient Education How to access health informa tion online - Detail Indication:Diabetes mellitus type II, controlled, with no complications Start:29-Aug-2014 Instruction Type:Patient Education Patient Instructions Indication:Diabetes mellitus type II, controlled, with no complications Start:29-Aug-2014 Instruction Type:Provider Instructions for Treatment Weight check (V05.4) Indication:Weight loss Start:08-Jun-2014 Instruction Type:Nursing Car e Education How to access health informa tion online Indication:Diabetes mellitus type II, controlled, with no complications Start:27-Apr-2014 Instruction Type:Patient Education How to access health informa tion online - Detail Indication:Diabetes mellitus type II, controlled, with no complications Start:27-Apr-2014 Instruction Type:Patient Education Patient Instructions Indication:Diabetes mellitus type II, controlled, with no complications Start:27-Apr-2014 Instruction Type:Provider Instructions for Treatment How to access health informa tion online - Detail Indication:Diabetes mellitus type II, controlled, with no complications Start:09-Dec-2013 Instruction Type:Patient Education Patient Instructions Indication:Hypocalcemia Start:07-Jan-2013 Instruction Type:Provider Instructions for Treatment Patient Instructions Indication:Diabetes mellitus type II, controlled, with no complications Start:08-Oct-2012 Instruction Type:Provider Instructions for Treatment [facility]; [facility] Work Phone: Instructions* Name Dates Details Patient Instructions Indication:Diabetes mellitus type II, controlled, with no complications Start:27-Jun-2022 Instruction Type:Provider Instructions for Treatment How to Access Health Informa tion Online using Patient Portal and 3rd [employer] Apps Indication:Diabetes mellitus type II, controlled, with no complications Start:27-Jun-2022 Instruction Type:Patient Education Patient Instructions Indication:Non-smoker Start:28-Mar-2022 Instruction Type:Provider Instructions for Treatment How to Access Health Informa tion Online using Patient Portal and [employer]rd [employer] Apps Indication:Non-smoker Start:28-Mar-2022 Instruction Type:Patient Education Patient Instructions Indication:Non-smoker Start:14-Mar-2022 Instruction Type:Provider Instructions for Treatment How to Access Health Informa tion Online using Patient Portal and [employer]rd [employer] Apps Indication:Non-smoker Start:14-Mar-2022 Instruction Type:Patient Education Patient Instructions Indication:Diabetes mellitus type II, controlled, with no complications Start:11-Nov-2021 Instruction Type:Provider Instructions for Treatment How to Access Health Informa tion Online using Patient Portal and [employer]rd [employer] Apps Indication:Diabetes mellitus type II, controlled, with no complications Start:11-Nov-2021 Instruction Type:Patient Education Patient Instructions Indication:BMI 26.0-26.9,adult Start:07-Aug-2021 Instruction Type:Provider Instructions for Treatment How to Access Health Informa tion Online using Patient Portal and [employer]rd [employer] Apps Indication:BMI 26.0-26.9,adult Start:07-Aug-2021 Instruction Type:Patient Education Patient Instructions Indication:Diabetes mellitus type II, controlled, with no complications Start:08-May-2021 Instruction Type:Provider Instructions for Treatment How to Access Health Informa tion Online using Patient Portal and [employer]rd [employer] Apps Indication:Diabetes mellitus type II, controlled, with no complications Start:08-May-2021 Instruction Type:Patient Education Patient Instructions Indication:Diabetes mellitus type II, controlled, with no complications Start:07-Jan-2021 Instruction Type:Provider Instructions for Treatment How to Access Health Informa tion Online using Patient Portal and [employer]rd [employer] Apps Indication:Diabetes mellitus type II, controlled, with no complications Start:07-Jan-2021 Instruction Type:Patient Education Patient Instructions Indication:Diabetes mellitus type II, controlled, with no complications Start:03-Sep-2020 Instruction Type:Provider Instructions for Treatment How to Access Health Informa tion Online using Patient Portal and [employer]rd [employer] Apps Indication:Diabetes mellitus type II, controlled, with no complications Start:03-Sep-2020 Instruction Type:Patient Education Patient Instructions Indication:BMI 25.0-25.9,adult Start:04-May-2020 Instruction Type:Provider Instructions for Treatment How to Access Health Informa tion Online using Patient Portal and [employer]rd [employer] Apps Indication:BMI 25.0-25.9,adult Start:04-May-2020 Instruction Type:Patient Education How to access health informa tion online Indication:BMI 25.0-25.9,adult Start:14-Mar-2020 Instruction Type:Patient Education How to access health informa tion online - Detail Indication:BMI 25.0-25.9,adult Start:14-Mar-2020 Instruction Type:Patient Education Patient Instructions Indication:BMI 25.0-25.9,adult Start:14-Mar-2020 Instruction Type:Provider Instructions for Treatment How to access health informa tion online Indication:Non-smoker Start:02-Feb-2020 Instruction Type:Patient Education How to access health informa tion online - Detail Indication:Non-smoker Start:02-Feb-2020 Instruction Type:Patient Education Patient Instructions Indication:Non-smoker Start:02-Feb-2020 Instruction Type:Provider Instructions for Treatment How to access health informa tion online Indication:Non-smoker Start:02-Nov-2019 Instruction Type:Patient Education How to access health informa tion online - Detail Indication:Non-smoker Start:02-Nov-2019 Instruction Type:Patient Education Patient Instructions Indication:Non-smoker Start:02-Nov-2019 Instruction Type:Provider Instructions for Treatment How to access health informa tion online Indication:BMI 26.0-26.9,adult Start:28-Apr-2019 Instruction Type:Patient Education How to access health informa tion online - Detail Indication:BMI 26.0-26.9,adult Start:28-Apr-2019 Instruction Type:Patient Education Patient Instructions Indication:BMI 26.0-26.9,adult Start:28-Apr-2019 Instruction Type:Provider Instructions for Treatment How to access health informa tion online Indication:Diabetes mellitus type II, controlled, with no complications Start:23-Dec-2018 Instruction Type:Patient Education How to access health informa tion online - Detail Indication:Diabetes mellitus type II, controlled, with no complications Start:23-Dec-2018 Instruction Type:Patient Education Patient Instructions Indication:Diabetes mellitus type II, controlled, with no complications Start:23-Dec-2018 Instruction Type:Provider Instructions for Treatment Patient Instructions Indication:Non-smoker Start:30-Aug-2018 Instruction Type:Provider Instructions for Treatment How to access health informa tion online - Detail Indication:Non-smoker Start:30-Aug-2018 Instruction Type:Patient Education How to access health informa tion online Indication:Non-smoker Start:30-Aug-2018 Instruction Type:Patient Education Patient Instructions Indication:Non-smoker Start:30-Aug-2018 Instruction Type:Provider Instructions for Treatment How to access health informa tion online Indication:Diabetes mellitus type II, controlled, with no complications Start:17-May-2018 Instruction Type:Patient Education How to access health informa tion online - Detail Indication:Diabetes mellitus type II, controlled, with no complications Start:17-May-2018 Instruction Type:Patient Education Patient Instructions Indication:Diabetes mellitus type II, controlled, with no complications Start:17-May-2018 Instruction Type:Provider Instructions for Treatment How to access health informa tion online Indication:BMI 25.0-25.9,adult Start:12-Feb-2018 Instruction Type:Patient Education How to access health informa tion online - Detail Indication:BMI 25.0-25.9,adult Start:12-Feb-2018 Instruction Type:Patient Education Patient Instructions Indication:BMI 25.0-25.9,adult Start:12-Feb-2018 Instruction Type:Provider Instructions for Treatment How to access health informa tion online Indication:Diabetes mellitus type II, controlled, with no complications Start:17-Jul-2017 Instruction Type:Patient Education How to access health informa tion online - Detail Indication:Diabetes mellitus type II, controlled, with no complications Start:17-Jul-2017 Instruction Type:Patient Education Patient Instructions Indication:Diabetes mellitus type II, controlled, with no complications Start:17-Jul-2017 Instruction Type:Provider Instructions for Treatment How to access health informa tion online Indication:Non-smoker Start:10-Jul-2017 Instruction Type:Patient Education How to access health informa tion online - Detail Indication:Non-smoker Start:10-Jul-2017 Instruction Type:Patient Education Patient Instructions Indication:Non-smoker Start:10-Jul-2017 Instruction Type:Provider Instructions for Treatment How to access health informa tion online Indication:Diabetes mellitus type II, controlled, with no complications Start:17-Apr-2017 Instruction Type:Patient Education How to access health informa tion online - Detail Indication:Diabetes mellitus type II, controlled, with no complications Start:17-Apr-2017 Instruction Type:Patient Education Patient Instructions Indication:Diabetes mellitus type II, controlled, with no complications Start:17-Apr-2017 Instruction Type:Provider Instructions for Treatment How to access health informa tion online Indication:Tobacco abuse, 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) Start:27-Mar-2017 Instruction Type:Patient Education How to access health informa tion online - Detail Indication:Tobacco abuse, 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) Start:27-Mar-2017 Instruction Type:Patient Education Patient Instructions Indication:Tobacco abuse, 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) Start:27-Mar-2017 Instruction Type:Provider Instructions for Treatment How to access health informa tion online Indication:Diabetes mellitus type II, controlled, with no complications Start:09-Oct-2016 Instruction Type:Patient Education How to access health informa tion online - Detail Indication:Diabetes mellitus type II, controlled, with no complications Start:09-Oct-2016 Instruction Type:Patient Education How to access health informa tion online - Detail Indication:Diabetes mellitus type II, controlled, with no complications Start:09-Oct-2016 Instruction Type:Patient Education Patient Instructions Indication:Diabetes mellitus type II, controlled, with no complications Start:09-Oct-2016 Instruction Type:Provider Instructions for Treatment How to access health informa tion online Indication:Diabetes mellitus type II, controlled, with no complications Start:11-Jun-2016 Instruction Type:Patient Education How to access health informa tion online - Detail Indication:Diabetes mellitus type II, controlled, with no complications Start:11-Jun-2016 Instruction Type:Patient Education Patient Instructions Indication:Diabetes mellitus type II, controlled, with no complications Start:11-Jun-2016 Instruction Type:Provider Instructions for Treatment How to access health informa tion online Indication:Body mass index (BMI) 24.0-24.9, adult Start:22-Apr-2016 Instruction Type:Patient Education How to access health informa tion online - Detail Indication:Body mass index (BMI) 24.0-24.9, adult Start:22-Apr-2016 Instruction Type:Patient Education Patient Instructions Indication:Body mass index (BMI) 24.0-24.9, adult Start:22-Apr-2016 Instruction Type:Provider Instructions for Treatment How to access health informa tion online Indication:Diabetes mellitus type II, controlled, with no complications Start:10-Mar-2016 Instruction Type:Patient Education How to access health informa tion online - Detail Indication:Diabetes mellitus type II, controlled, with no complications Start:10-Mar-2016 Instruction Type:Patient Education Patient Instructions Indication:Diabetes mellitus type II, controlled, with no complications Start:10-Mar-2016 Instruction Type:Provider Instructions for Treatment How to access health informa tion online Indication:Diabetes mellitus type II, controlled, with no complications Start:16-Jul-2015 Instruction Type:Patient Education How to access health informa tion online - Detail Indication:Diabetes mellitus type II, controlled, with no complications Start:16-Jul-2015 Instruction Type:Patient Education Patient Instructions Indication:Diabetes mellitus type II, controlled, with no complications Start:16-Jul-2015 Instruction Type:Provider Instructions for Treatment How to access health informa tion online Indication:Diabetes mellitus type II, controlled, with no complications Start:26-Dec-2014 Instruction Type:Patient Education How to access health informa tion online - Detail Indication:Diabetes mellitus type II, controlled, with no complications Start:26-Dec-2014 Instruction Type:Patient Education Patient Instructions Indication:Diabetes mellitus type II, controlled, with no complications Start:26-Dec-2014 Instruction Type:Provider Instructions for Treatment How to access health informa tion online Indication:Diabetes mellitus type II, controlled, with no complications Start:29-Aug-2014 Instruction Type:Patient Education How to access health informa tion online - Detail Indication:Diabetes mellitus type II, controlled, with no complications Start:29-Aug-2014 Instruction Type:Patient Education Patient Instructions Indication:Diabetes mellitus type II, controlled, with no complications Start:29-Aug-2014 Instruction Type:Provider Instructions for Treatment Weight check (V05.4) Indication:Weight loss Start:08-Jun-2014 Instruction Type:Nursing Car e Education How to access health informa tion online Indication:Diabetes mellitus type II, controlled, with no complications Start:27-Apr-2014 Instruction Type:Patient Education How to access health informa tion online - Detail Indication:Diabetes mellitus type II, controlled, with no complications Start:27-Apr-2014 Instruction Type:Patient Education Patient Instructions Indication:Diabetes mellitus type II, controlled, with no complications Start:27-Apr-2014 Instruction Type:Provider Instructions for Treatment How to access health informa tion online - Detail Indication:Diabetes mellitus type II, controlled, with no complications Start:09-Dec-2013 Instruction Type:Patient Education Patient Instructions Indication:Hypocalcemia Start:07-Jan-2013 Instruction Type:Provider Instructions for Treatment Patient Instructions Indication:Diabetes mellitus type II, controlled, with no complications Start:08-Oct-2012 Instruction Type:Provider Instructions for Treatment [facility]; [facility] Work Phone: Instructions* Name Dates Details Patient Instructions Indication:Diabetes mellitus type II, controlled, with no complications Start:27-Jun-2022 Instruction Type:Provider Instructions for Treatment How to Access Health Informa tion Online using Patient Portal and [employer]rd [employer] Apps Indication:Diabetes mellitus type II, controlled, with no complications Start:27-Jun-2022 Instruction Type:Patient Education Patient Instructions Indication:Non-smoker Start:28-Mar-2022 Instruction Type:Provider Instructions for Treatment How to Access Health Informa tion Online using Patient Portal and [employer]rd [employer] Apps Indication:Non-smoker Start:28-Mar-2022 Instruction Type:Patient Education Patient Instructions Indication:Non-smoker Start:14-Mar-2022 Instruction Type:Provider Instructions for Treatment How to Access Health Informa tion Online using Patient Portal and [employer]rd [employer] Apps Indication:Non-smoker Start:14-Mar-2022 Instruction Type:Patient Education Patient Instructions Indication:Diabetes mellitus type II, controlled, with no complications Start:11-Nov-2021 Instruction Type:Provider Instructions for Treatment How to Access Health Informa tion Online using Patient Portal and [employer]rd [employer] Apps Indication:Diabetes mellitus type II, controlled, with no complications Start:11-Nov-2021 Instruction Type:Patient Education Patient Instructions Indication:BMI 26.0-26.9,adult Start:07-Aug-2021 Instruction Type:Provider Instructions for Treatment How to Access Health Informa tion Online using Patient Portal and [employer]rd [employer] Apps Indication:BMI 26.0-26.9,adult Start:07-Aug-2021 Instruction Type:Patient Education Patient Instructions Indication:Diabetes mellitus type II, controlled, with no complications Start:08-May-2021 Instruction Type:Provider Instructions for Treatment How to Access Health Informa tion Online using Patient Portal and [employer]rd [employer] Apps Indication:Diabetes mellitus type II, controlled, with no complications Start:08-May-2021 Instruction Type:Patient Education Patient Instructions Indication:Diabetes mellitus type II, controlled, with no complications Start:07-Jan-2021 Instruction Type:Provider Instructions for Treatment How to Access Health Informa tion Online using Patient Portal and [employer]rd [employer] Apps Indication:Diabetes mellitus type II, controlled, with no complications Start:07-Jan-2021 Instruction Type:Patient Education Patient Instructions Indication:Diabetes mellitus type II, controlled, with no complications Start:03-Sep-2020 Instruction Type:Provider Instructions for Treatment How to Access Health Informa tion Online using Patient Portal and [employer]rd [employer] Apps Indication:Diabetes mellitus type II, controlled, with no complications Start:03-Sep-2020 Instruction Type:Patient Education Patient Instructions Indication:BMI 25.0-25.9,adult Start:04-May-2020 Instruction Type:Provider Instructions for Treatment How to Access Health Informa tion Online using Patient Portal and [employer]rd [employer] Apps Indication:BMI 25.0-25.9,adult Start:04-May-2020 Instruction Type:Patient Education How to access health informa tion online Indication:BMI 25.0-25.9,adult Start:14-Mar-2020 Instruction Type:Patient Education How to access health informa tion online - Detail Indication:BMI 25.0-25.9,adult Start:14-Mar-2020 Instruction Type:Patient Education Patient Instructions Indication:BMI 25.0-25.9,adult Start:14-Mar-2020 Instruction Type:Provider Instructions for Treatment How to access health informa tion online Indication:Non-smoker Start:02-Feb-2020 Instruction Type:Patient Education How to access health informa tion online - Detail Indication:Non-smoker Start:02-Feb-2020 Instruction Type:Patient Education Patient Instructions Indication:Non-smoker Start:02-Feb-2020 Instruction Type:Provider Instructions for Treatment How to access health informa tion online Indication:Non-smoker Start:02-Nov-2019 Instruction Type:Patient Education How to access health informa tion online - Detail Indication:Non-smoker Start:02-Nov-2019 Instruction Type:Patient Education Patient Instructions Indication:Non-smoker Start:02-Nov-2019 Instruction Type:Provider Instructions for Treatment How to access health informa tion online Indication:BMI 26.0-26.9,adult Start:28-Apr-2019 Instruction Type:Patient Education How to access health informa tion online - Detail Indication:BMI 26.0-26.9,adult Start:28-Apr-2019 Instruction Type:Patient Education Patient Instructions Indication:BMI 26.0-26.9,adult Start:28-Apr-2019 Instruction Type:Provider Instructions for Treatment How to access health informa tion online Indication:Diabetes mellitus type II, controlled, with no complications Start:23-Dec-2018 Instruction Type:Patient Education How to access health informa tion online - Detail Indication:Diabetes mellitus type II, controlled, with no complications Start:23-Dec-2018 Instruction Type:Patient Education Patient Instructions Indication:Diabetes mellitus type II, controlled, with no complications Start:23-Dec-2018 Instruction Type:Provider Instructions for Treatment Patient Instructions Indication:Non-smoker Start:30-Aug-2018 Instruction Type:Provider Instructions for Treatment How to access health informa tion online - Detail Indication:Non-smoker Start:30-Aug-2018 Instruction Type:Patient Education How to access health informa tion online Indication:Non-smoker Start:30-Aug-2018 Instruction Type:Patient Education Patient Instructions Indication:Non-smoker Start:30-Aug-2018 Instruction Type:Provider Instructions for Treatment How to access health informa tion online Indication:Diabetes mellitus type II, controlled, with no complications Start:17-May-2018 Instruction Type:Patient Education How to access health informa tion online - Detail Indication:Diabetes mellitus type II, controlled, with no complications Start:17-May-2018 Instruction Type:Patient Education Patient Instructions Indication:Diabetes mellitus type II, controlled, with no complications Start:17-May-2018 Instruction Type:Provider Instructions for Treatment How to access health informa tion online Indication:BMI 25.0-25.9,adult Start:12-Feb-2018 Instruction Type:Patient Education How to access health informa tion online - Detail Indication:BMI 25.0-25.9,adult Start:12-Feb-2018 Instruction Type:Patient Education Patient Instructions Indication:BMI 25.0-25.9,adult Start:12-Feb-2018 Instruction Type:Provider Instructions for Treatment How to access health informa tion online Indication:Diabetes mellitus type II, controlled, with no complications Start:17-Jul-2017 Instruction Type:Patient Education How to access health informa tion online - Detail Indication:Diabetes mellitus type II, controlled, with no complications Start:17-Jul-2017 Instruction Type:Patient Education Patient Instructions Indication:Diabetes mellitus type II, controlled, with no complications Start:17-Jul-2017 Instruction Type:Provider Instructions for Treatment How to access health informa tion online Indication:Non-smoker Start:10-Jul-2017 Instruction Type:Patient Education How to access health informa tion online - Detail Indication:Non-smoker Start:10-Jul-2017 Instruction Type:Patient Education Patient Instructions Indication:Non-smoker Start:10-Jul-2017 Instruction Type:Provider Instructions for Treatment How to access health informa tion online Indication:Diabetes mellitus type II, controlled, with no complications Start:17-Apr-2017 Instruction Type:Patient Education How to access health informa tion online - Detail Indication:Diabetes mellitus type II, controlled, with no complications Start:17-Apr-2017 Instruction Type:Patient Education Patient Instructions Indication:Diabetes mellitus type II, controlled, with no complications Start:17-Apr-2017 Instruction Type:Provider Instructions for Treatment How to access health informa tion online Indication:Tobacco abuse, 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) Start:27-Mar-2017 Instruction Type:Patient Education How to access health informa tion online - Detail Indication:Tobacco abuse, 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) Start:27-Mar-2017 Instruction Type:Patient Education Patient Instructions Indication:Tobacco abuse, 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) Start:27-Mar-2017 Instruction Type:Provider Instructions for Treatment How to access health informa tion online Indication:Diabetes mellitus type II, controlled, with no complications Start:09-Oct-2016 Instruction Type:Patient Education How to access health informa tion online - Detail Indication:Diabetes mellitus type II, controlled, with no complications Start:09-Oct-2016 Instruction Type:Patient Education How to access health informa tion online - Detail Indication:Diabetes mellitus type II, controlled, with no complications Start:09-Oct-2016 Instruction Type:Patient Education Patient Instructions Indication:Diabetes mellitus type II, controlled, with no complications Start:09-Oct-2016 Instruction Type:Provider Instructions for Treatment How to access health informa tion online Indication:Diabetes mellitus type II, controlled, with no complications Start:11-Jun-2016 Instruction Type:Patient Education How to access health informa tion online - Detail Indication:Diabetes mellitus type II, controlled, with no complications Start:11-Jun-2016 Instruction Type:Patient Education Patient Instructions Indication:Diabetes mellitus type II, controlled, with no complications Start:11-Jun-2016 Instruction Type:Provider Instructions for Treatment How to access health informa tion online Indication:Body mass index (BMI) 24.0-24.9, adult Start:22-Apr-2016 Instruction Type:Patient Education How to access health informa tion online - Detail Indication:Body mass index (BMI) 24.0-24.9, adult Start:22-Apr-2016 Instruction Type:Patient Education Patient Instructions Indication:Body mass index (BMI) 24.0-24.9, adult Start:22-Apr-2016 Instruction Type:Provider Instructions for Treatment How to access health informa tion online Indication:Diabetes mellitus type II, controlled, with no complications Start:10-Mar-2016 Instruction Type:Patient Education How to access health informa tion online - Detail Indication:Diabetes mellitus type II, controlled, with no complications Start:10-Mar-2016 Instruction Type:Patient Education Patient Instructions Indication:Diabetes mellitus type II, controlled, with no complications Start:10-Mar-2016 Instruction Type:Provider Instructions for Treatment How to access health informa tion online Indication:Diabetes mellitus type II, controlled, with no complications Start:16-Jul-2015 Instruction Type:Patient Education How to access health informa tion online - Detail Indication:Diabetes mellitus type II, controlled, with no complications Start:16-Jul-2015 Instruction Type:Patient Education Patient Instructions Indication:Diabetes mellitus type II, controlled, with no complications Start:16-Jul-2015 Instruction Type:Provider Instructions for Treatment How to access health informa tion online Indication:Diabetes mellitus type II, controlled, with no complications Start:26-Dec-2014 Instruction Type:Patient Education How to access health informa tion online - Detail Indication:Diabetes mellitus type II, controlled, with no complications Start:26-Dec-2014 Instruction Type:Patient Education Patient Instructions Indication:Diabetes mellitus type II, controlled, with no complications Start:26-Dec-2014 Instruction Type:Provider Instructions for Treatment How to access health informa tion online Indication:Diabetes mellitus type II, controlled, with no complications Start:29-Aug-2014 Instruction Type:Patient Education How to access health informa tion online - Detail Indication:Diabetes mellitus type II, controlled, with no complications Start:29-Aug-2014 Instruction Type:Patient Education Patient Instructions Indication:Diabetes mellitus type II, controlled, with no complications Start:29-Aug-2014 Instruction Type:Provider Instructions for Treatment Weight check (V05.4) Indication:Weight loss Start:08-Jun-2014 Instruction Type:Nursing Car e Education How to access health informa tion online Indication:Diabetes mellitus type II, controlled, with no complications Start:27-Apr-2014 Instruction Type:Patient Education How to access health informa tion online - Detail Indication:Diabetes mellitus type II, controlled, with no complications Start:27-Apr-2014 Instruction Type:Patient Education Patient Instructions Indication:Diabetes mellitus type II, controlled, with no complications Start:27-Apr-2014 Instruction Type:Provider Instructions for Treatment How to access health informa tion online - Detail Indication:Diabetes mellitus type II, controlled, with no complications Start:09-Dec-2013 Instruction Type:Patient Education Patient Instructions Indication:Hypocalcemia Start:07-Jan-2013 Instruction Type:Provider Instructions for Treatment Patient Instructions Indication:Diabetes mellitus type II, controlled, with no complications Start:08-Oct-2012 Instruction Type:Provider Instructions for Treatment [facility]; [facility] Work Phone: Instructions* Name Dates Details Patient Instructions Indication:Diabetes mellitus type II, controlled, with no complications Start:27-Jun-2022 Instruction Type:Provider Instructions for Treatment How to Access Health Informa tion Online using Patient Portal and 3rd [employer] Apps Indication:Diabetes mellitus type II, controlled, with no complications Start:27-Jun-2022 Instruction Type:Patient Education Patient Instructions Indication:Non-smoker Start:28-Mar-2022 Instruction Type:Provider Instructions for Treatment How to Access Health Informa tion Online using Patient Portal and [employer]rd [employer] Apps Indication:Non-smoker Start:28-Mar-2022 Instruction Type:Patient Education Patient Instructions Indication:Non-smoker Start:14-Mar-2022 Instruction Type:Provider Instructions for Treatment How to Access Health Informa tion Online using Patient Portal and [employer]rd [employer] Apps Indication:Non-smoker Start:14-Mar-2022 Instruction Type:Patient Education Patient Instructions Indication:Diabetes mellitus type II, controlled, with no complications Start:11-Nov-2021 Instruction Type:Provider Instructions for Treatment How to Access Health Informa tion Online using Patient Portal and [employer]rd [employer] Apps Indication:Diabetes mellitus type II, controlled, with no complications Start:11-Nov-2021 Instruction Type:Patient Education Patient Instructions Indication:BMI 26.0-26.9,adult Start:07-Aug-2021 Instruction Type:Provider Instructions for Treatment How to Access Health Informa tion Online using Patient Portal and [employer]rd [employer] Apps Indication:BMI 26.0-26.9,adult Start:07-Aug-2021 Instruction Type:Patient Education Patient Instructions Indication:Diabetes mellitus type II, controlled, with no complications Start:08-May-2021 Instruction Type:Provider Instructions for Treatment How to Access Health Informa tion Online using Patient Portal and [employer]rd [employer] Apps Indication:Diabetes mellitus type II, controlled, with no complications Start:08-May-2021 Instruction Type:Patient Education Patient Instructions Indication:Diabetes mellitus type II, controlled, with no complications Start:07-Jan-2021 Instruction Type:Provider Instructions for Treatment How to Access Health Informa tion Online using Patient Portal and [employer]rd [employer] Apps Indication:Diabetes mellitus type II, controlled, with no complications Start:07-Jan-2021 Instruction Type:Patient Education Patient Instructions Indication:Diabetes mellitus type II, controlled, with no complications Start:03-Sep-2020 Instruction Type:Provider Instructions for Treatment How to Access Health Informa tion Online using Patient Portal and [employer]rd [employer] Apps Indication:Diabetes mellitus type II, controlled, with no complications Start:03-Sep-2020 Instruction Type:Patient Education Patient Instructions Indication:BMI 25.0-25.9,adult Start:04-May-2020 Instruction Type:Provider Instructions for Treatment How to Access Health Informa tion Online using Patient Portal and [employer]rd [employer] Apps Indication:BMI 25.0-25.9,adult Start:04-May-2020 Instruction Type:Patient Education How to access health informa tion online Indication:BMI 25.0-25.9,adult Start:14-Mar-2020 Instruction Type:Patient Education How to access health informa tion online - Detail Indication:BMI 25.0-25.9,adult Start:14-Mar-2020 Instruction Type:Patient Education Patient Instructions Indication:BMI 25.0-25.9,adult Start:14-Mar-2020 Instruction Type:Provider Instructions for Treatment How to access health informa tion online Indication:Non-smoker Start:02-Feb-2020 Instruction Type:Patient Education How to access health informa tion online - Detail Indication:Non-smoker Start:02-Feb-2020 Instruction Type:Patient Education Patient Instructions Indication:Non-smoker Start:02-Feb-2020 Instruction Type:Provider Instructions for Treatment How to access health informa tion online Indication:Non-smoker Start:02-Nov-2019 Instruction Type:Patient Education How to access health informa tion online - Detail Indication:Non-smoker Start:02-Nov-2019 Instruction Type:Patient Education Patient Instructions Indication:Non-smoker Start:02-Nov-2019 Instruction Type:Provider Instructions for Treatment How to access health informa tion online Indication:BMI 26.0-26.9,adult Start:28-Apr-2019 Instruction Type:Patient Education How to access health informa tion online - Detail Indication:BMI 26.0-26.9,adult Start:28-Apr-2019 Instruction Type:Patient Education Patient Instructions Indication:BMI 26.0-26.9,adult Start:28-Apr-2019 Instruction Type:Provider Instructions for Treatment How to access health informa tion online Indication:Diabetes mellitus type II, controlled, with no complications Start:23-Dec-2018 Instruction Type:Patient Education How to access health informa tion online - Detail Indication:Diabetes mellitus type II, controlled, with no complications Start:23-Dec-2018 Instruction Type:Patient Education Patient Instructions Indication:Diabetes mellitus type II, controlled, with no complications Start:23-Dec-2018 Instruction Type:Provider Instructions for Treatment Patient Instructions Indication:Non-smoker Start:30-Aug-2018 Instruction Type:Provider Instructions for Treatment How to access health informa tion online - Detail Indication:Non-smoker Start:30-Aug-2018 Instruction Type:Patient Education How to access health informa tion online Indication:Non-smoker Start:30-Aug-2018 Instruction Type:Patient Education Patient Instructions Indication:Non-smoker Start:30-Aug-2018 Instruction Type:Provider Instructions for Treatment How to access health informa tion online Indication:Diabetes mellitus type II, controlled, with no complications Start:17-May-2018 Instruction Type:Patient Education How to access health informa tion online - Detail Indication:Diabetes mellitus type II, controlled, with no complications Start:17-May-2018 Instruction Type:Patient Education Patient Instructions Indication:Diabetes mellitus type II, controlled, with no complications Start:17-May-2018 Instruction Type:Provider Instructions for Treatment How to access health informa tion online Indication:BMI 25.0-25.9,adult Start:12-Feb-2018 Instruction Type:Patient Education How to access health informa tion online - Detail Indication:BMI 25.0-25.9,adult Start:12-Feb-2018 Instruction Type:Patient Education Patient Instructions Indication:BMI 25.0-25.9,adult Start:12-Feb-2018 Instruction Type:Provider Instructions for Treatment How to access health informa tion online Indication:Diabetes mellitus type II, controlled, with no complications Start:17-Jul-2017 Instruction Type:Patient Education How to access health informa tion online - Detail Indication:Diabetes mellitus type II, controlled, with no complications Start:17-Jul-2017 Instruction Type:Patient Education Patient Instructions Indication:Diabetes mellitus type II, controlled, with no complications Start:17-Jul-2017 Instruction Type:Provider Instructions for Treatment How to access health informa tion online Indication:Non-smoker Start:10-Jul-2017 Instruction Type:Patient Education How to access health informa tion online - Detail Indication:Non-smoker Start:10-Jul-2017 Instruction Type:Patient Education Patient Instructions Indication:Non-smoker Start:10-Jul-2017 Instruction Type:Provider Instructions for Treatment How to access health informa tion online Indication:Diabetes mellitus type II, controlled, with no complications Start:17-Apr-2017 Instruction Type:Patient Education How to access health informa tion online - Detail Indication:Diabetes mellitus type II, controlled, with no complications Start:17-Apr-2017 Instruction Type:Patient Education Patient Instructions Indication:Diabetes mellitus type II, controlled, with no complications Start:17-Apr-2017 Instruction Type:Provider Instructions for Treatment How to access health informa tion online Indication:Tobacco abuse, 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) Start:27-Mar-2017 Instruction Type:Patient Education How to access health informa tion online - Detail Indication:Tobacco abuse, 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) Start:27-Mar-2017 Instruction Type:Patient Education Patient Instructions Indication:Tobacco abuse, 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) Start:27-Mar-2017 Instruction Type:Provider Instructions for Treatment How to access health informa tion online Indication:Diabetes mellitus type II, controlled, with no complications Start:09-Oct-2016 Instruction Type:Patient Education How to access health informa tion online - Detail Indication:Diabetes mellitus type II, controlled, with no complications Start:09-Oct-2016 Instruction Type:Patient Education How to access health informa tion online - Detail Indication:Diabetes mellitus type II, controlled, with no complications Start:09-Oct-2016 Instruction Type:Patient Education Patient Instructions Indication:Diabetes mellitus type II, controlled, with no complications Start:09-Oct-2016 Instruction Type:Provider Instructions for Treatment How to access health informa tion online Indication:Diabetes mellitus type II, controlled, with no complications Start:11-Jun-2016 Instruction Type:Patient Education How to access health informa tion online - Detail Indication:Diabetes mellitus type II, controlled, with no complications Start:11-Jun-2016 Instruction Type:Patient Education Patient Instructions Indication:Diabetes mellitus type II, controlled, with no complications Start:11-Jun-2016 Instruction Type:Provider Instructions for Treatment How to access health informa tion online Indication:Body mass index (BMI) 24.0-24.9, adult Start:22-Apr-2016 Instruction Type:Patient Education How to access health informa tion online - Detail Indication:Body mass index (BMI) 24.0-24.9, adult Start:22-Apr-2016 Instruction Type:Patient Education Patient Instructions Indication:Body mass index (BMI) 24.0-24.9, adult Start:22-Apr-2016 Instruction Type:Provider Instructions for Treatment How to access health informa tion online Indication:Diabetes mellitus type II, controlled, with no complications Start:10-Mar-2016 Instruction Type:Patient Education How to access health informa tion online - Detail Indication:Diabetes mellitus type II, controlled, with no complications Start:10-Mar-2016 Instruction Type:Patient Education Patient Instructions Indication:Diabetes mellitus type II, controlled, with no complications Start:10-Mar-2016 Instruction Type:Provider Instructions for Treatment How to access health informa tion online Indication:Diabetes mellitus type II, controlled, with no complications Start:16-Jul-2015 Instruction Type:Patient Education How to access health informa tion online - Detail Indication:Diabetes mellitus type II, controlled, with no complications Start:16-Jul-2015 Instruction Type:Patient Education Patient Instructions Indication:Diabetes mellitus type II, controlled, with no complications Start:16-Jul-2015 Instruction Type:Provider Instructions for Treatment How to access health informa tion online Indication:Diabetes mellitus type II, controlled, with no complications Start:26-Dec-2014 Instruction Type:Patient Education How to access health informa tion online - Detail Indication:Diabetes mellitus type II, controlled, with no complications Start:26-Dec-2014 Instruction Type:Patient Education Patient Instructions Indication:Diabetes mellitus type II, controlled, with no complications Start:26-Dec-2014 Instruction Type:Provider Instructions for Treatment How to access health informa tion online Indication:Diabetes mellitus type II, controlled, with no complications Start:29-Aug-2014 Instruction Type:Patient Education How to access health informa tion online - Detail Indication:Diabetes mellitus type II, controlled, with no complications Start:29-Aug-2014 Instruction Type:Patient Education Patient Instructions Indication:Diabetes mellitus type II, controlled, with no complications Start:29-Aug-2014 Instruction Type:Provider Instructions for Treatment Weight check (V05.4) Indication:Weight loss Start:08-Jun-2014 Instruction Type:Nursing Car e Education How to access health informa tion online Indication:Diabetes mellitus type II, controlled, with no complications Start:27-Apr-2014 Instruction Type:Patient Education How to access health informa tion online - Detail Indication:Diabetes mellitus type II, controlled, with no complications Start:27-Apr-2014 Instruction Type:Patient Education Patient Instructions Indication:Diabetes mellitus type II, controlled, with no complications Start:27-Apr-2014 Instruction Type:Provider Instructions for Treatment How to access health informa tion online - Detail Indication:Diabetes mellitus type II, controlled, with no complications Start:09-Dec-2013 Instruction Type:Patient Education Patient Instructions Indication:Hypocalcemia Start:07-Jan-2013 Instruction Type:Provider Instructions for Treatment Patient Instructions Indication:Diabetes mellitus type II, controlled, with no complications Start:08-Oct-2012 Instruction Type:Provider Instructions for Treatment [facility]; [facility] Work Phone: Instructions* Name Dates Details Patient Instructions Indication:Diabetes mellitus type II, controlled, with no complications Start:20-Feb-2023 Instruction Type:Provider Instructions for Treatment How to Access Health Informa tion Online using Patient Portal and [employer]rd [employer] Apps Indication:Diabetes mellitus type II, controlled, with no complications Start:20-Feb-2023 Instruction Type:Patient Education Patient Instructions Indication:Diabetes mellitus type II, controlled, with no complications Start:27-Jun-2022 Instruction Type:Provider Instructions for Treatment How to Access Health Informa tion Online using Patient Portal and [employer]rd [employer] Apps Indication:Diabetes mellitus type II, controlled, with no complications Start:27-Jun-2022 Instruction Type:Patient Education Patient Instructions Indication:Non-smoker Start:28-Mar-2022 Instruction Type:Provider Instructions for Treatment How to Access Health Informa tion Online using Patient Portal and [employer]rd [employer] Apps Indication:Non-smoker Start:28-Mar-2022 Instruction Type:Patient Education Patient Instructions Indication:Non-smoker Start:14-Mar-2022 Instruction Type:Provider Instructions for Treatment How to Access Health Informa tion Online using Patient Portal and [employer]rd [employer] Apps Indication:Non-smoker Start:14-Mar-2022 Instruction Type:Patient Education Patient Instructions Indication:Diabetes mellitus type II, controlled, with no complications Start:11-Nov-2021 Instruction Type:Provider Instructions for Treatment How to Access Health Informa tion Online using Patient Portal and [employer]rd [employer] Apps Indication:Diabetes mellitus type II, controlled, with no complications Start:11-Nov-2021 Instruction Type:Patient Education Patient Instructions Indication:BMI 26.0-26.9,adult Start:07-Aug-2021 Instruction Type:Provider Instructions for Treatment How to Access Health Informa tion Online using Patient Portal and [employer]rd [employer] Apps Indication:BMI 26.0-26.9,adult Start:07-Aug-2021 Instruction Type:Patient Education Patient Instructions Indication:Diabetes mellitus type II, controlled, with no complications Start:08-May-2021 Instruction Type:Provider Instructions for Treatment How to Access Health Informa tion Online using Patient Portal and [employer]rd [employer] Apps Indication:Diabetes mellitus type II, controlled, with no complications Start:08-May-2021 Instruction Type:Patient Education Patient Instructions Indication:Diabetes mellitus type II, controlled, with no complications Start:07-Jan-2021 Instruction Type:Provider Instructions for Treatment How to Access Health Informa tion Online using Patient Portal and [employer]rd [employer] Apps Indication:Diabetes mellitus type II, controlled, with no complications Start:07-Jan-2021 Instruction Type:Patient Education Patient Instructions Indication:Diabetes mellitus type II, controlled, with no complications Start:03-Sep-2020 Instruction Type:Provider Instructions for Treatment How to Access Health Informa tion Online using Patient Portal and [employer]rd [employer] Apps Indication:Diabetes mellitus type II, controlled, with no complications Start:03-Sep-2020 Instruction Type:Patient Education Patient Instructions Indication:BMI 25.0-25.9,adult Start:04-May-2020 Instruction Type:Provider Instructions for Treatment How to Access Health Informa tion Online using Patient Portal and [employer]rd [employer] Apps Indication:BMI 25.0-25.9,adult Start:04-May-2020 Instruction Type:Patient Education How to access health informa tion online Indication:BMI 25.0-25.9,adult Start:14-Mar-2020 Instruction Type:Patient Education How to access health informa tion online - Detail Indication:BMI 25.0-25.9,adult Start:14-Mar-2020 Instruction Type:Patient Education Patient Instructions Indication:BMI 25.0-25.9,adult Start:14-Mar-2020 Instruction Type:Provider Instructions for Treatment How to access health informa tion online Indication:Non-smoker Start:02-Feb-2020 Instruction Type:Patient Education How to access health informa tion online - Detail Indication:Non-smoker Start:02-Feb-2020 Instruction Type:Patient Education Patient Instructions Indication:Non-smoker Start:02-Feb-2020 Instruction Type:Provider Instructions for Treatment How to access health informa tion online Indication:Non-smoker Start:02-Nov-2019 Instruction Type:Patient Education How to access health informa tion online - Detail Indication:Non-smoker Start:02-Nov-2019 Instruction Type:Patient Education Patient Instructions Indication:Non-smoker Start:02-Nov-2019 Instruction Type:Provider Instructions for Treatment How to access health informa tion online Indication:BMI 26.0-26.9,adult Start:28-Apr-2019 Instruction Type:Patient Education How to access health informa tion online - Detail Indication:BMI 26.0-26.9,adult Start:28-Apr-2019 Instruction Type:Patient Education Patient Instructions Indication:BMI 26.0-26.9,adult Start:28-Apr-2019 Instruction Type:Provider Instructions for Treatment How to access health informa tion online Indication:Diabetes mellitus type II, controlled, with no complications Start:23-Dec-2018 Instruction Type:Patient Education How to access health informa tion online - Detail Indication:Diabetes mellitus type II, controlled, with no complications Start:23-Dec-2018 Instruction Type:Patient Education Patient Instructions Indication:Diabetes mellitus type II, controlled, with no complications Start:23-Dec-2018 Instruction Type:Provider Instructions for Treatment Patient Instructions Indication:Non-smoker Start:30-Aug-2018 Instruction Type:Provider Instructions for Treatment How to access health informa tion online - Detail Indication:Non-smoker Start:30-Aug-2018 Instruction Type:Patient Education How to access health informa tion online Indication:Non-smoker Start:30-Aug-2018 Instruction Type:Patient Education Patient Instructions Indication:Non-smoker Start:30-Aug-2018 Instruction Type:Provider Instructions for Treatment How to access health informa tion online Indication:Diabetes mellitus type II, controlled, with no complications Start:17-May-2018 Instruction Type:Patient Education How to access health informa tion online - Detail Indication:Diabetes mellitus type II, controlled, with no complications Start:17-May-2018 Instruction Type:Patient Education Patient Instructions Indication:Diabetes mellitus type II, controlled, with no complications Start:17-May-2018 Instruction Type:Provider Instructions for Treatment How to access health informa tion online Indication:BMI 25.0-25.9,adult Start:12-Feb-2018 Instruction Type:Patient Education How to access health informa tion online - Detail Indication:BMI 25.0-25.9,adult Start:12-Feb-2018 Instruction Type:Patient Education Patient Instructions Indication:BMI 25.0-25.9,adult Start:12-Feb-2018 Instruction Type:Provider Instructions for Treatment How to access health informa tion online Indication:Diabetes mellitus type II, controlled, with no complications Start:17-Jul-2017 Instruction Type:Patient Education How to access health informa tion online - Detail Indication:Diabetes mellitus type II, controlled, with no complications Start:17-Jul-2017 Instruction Type:Patient Education Patient Instructions Indication:Diabetes mellitus type II, controlled, with no complications Start:17-Jul-2017 Instruction Type:Provider Instructions for Treatment How to access health informa tion online Indication:Non-smoker Start:10-Jul-2017 Instruction Type:Patient Education How to access health informa tion online - Detail Indication:Non-smoker Start:10-Jul-2017 Instruction Type:Patient Education Patient Instructions Indication:Non-smoker Start:10-Jul-2017 Instruction Type:Provider Instructions for Treatment How to access health informa tion online Indication:Diabetes mellitus type II, controlled, with no complications Start:17-Apr-2017 Instruction Type:Patient Education How to access health informa tion online - Detail Indication:Diabetes mellitus type II, controlled, with no complications Start:17-Apr-2017 Instruction Type:Patient Education Patient Instructions Indication:Diabetes mellitus type II, controlled, with no complications Start:17-Apr-2017 Instruction Type:Provider Instructions for Treatment How to access health informa tion online Indication:Tobacco abuse, 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) Start:27-Mar-2017 Instruction Type:Patient Education How to access health informa tion online - Detail Indication:Tobacco abuse, 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) Start:27-Mar-2017 Instruction Type:Patient Education Patient Instructions Indication:Tobacco abuse, 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) Start:27-Mar-2017 Instruction Type:Provider Instructions for Treatment How to access health informa tion online Indication:Diabetes mellitus type II, controlled, with no complications Start:09-Oct-2016 Instruction Type:Patient Education How to access health informa tion online - Detail Indication:Diabetes mellitus type II, controlled, with no complications Start:09-Oct-2016 Instruction Type:Patient Education How to access health informa tion online - Detail Indication:Diabetes mellitus type II, controlled, with no complications Start:09-Oct-2016 Instruction Type:Patient Education Patient Instructions Indication:Diabetes mellitus type II, controlled, with no complications Start:09-Oct-2016 Instruction Type:Provider Instructions for Treatment How to access health informa tion online Indication:Diabetes mellitus type II, controlled, with no complications Start:11-Jun-2016 Instruction Type:Patient Education How to access health informa tion online - Detail Indication:Diabetes mellitus type II, controlled, with no complications Start:11-Jun-2016 Instruction Type:Patient Education Patient Instructions Indication:Diabetes mellitus type II, controlled, with no complications Start:11-Jun-2016 Instruction Type:Provider Instructions for Treatment How to access health informa tion online Indication:Body mass index (BMI) 24.0-24.9, adult Start:22-Apr-2016 Instruction Type:Patient Education How to access health informa tion online - Detail Indication:Body mass index (BMI) 24.0-24.9, adult Start:22-Apr-2016 Instruction Type:Patient Education Patient Instructions Indication:Body mass index (BMI) 24.0-24.9, adult Start:22-Apr-2016 Instruction Type:Provider Instructions for Treatment How to access health informa tion online Indication:Diabetes mellitus type II, controlled, with no complications Start:10-Mar-2016 Instruction Type:Patient Education How to access health informa tion online - Detail Indication:Diabetes mellitus type II, controlled, with no complications Start:10-Mar-2016 Instruction Type:Patient Education Patient Instructions Indication:Diabetes mellitus type II, controlled, with no complications Start:10-Mar-2016 Instruction Type:Provider Instructions for Treatment How to access health informa tion online Indication:Diabetes mellitus type II, controlled, with no complications Start:16-Jul-2015 Instruction Type:Patient Education How to access health informa tion online - Detail Indication:Diabetes mellitus type II, controlled, with no complications Start:16-Jul-2015 Instruction Type:Patient Education Patient Instructions Indication:Diabetes mellitus type II, controlled, with no complications Start:16-Jul-2015 Instruction Type:Provider Instructions for Treatment How to access health informa tion online Indication:Diabetes mellitus type II, controlled, with no complications Start:26-Dec-2014 Instruction Type:Patient Education How to access health informa tion online - Detail Indication:Diabetes mellitus type II, controlled, with no complications Start:26-Dec-2014 Instruction Type:Patient Education Patient Instructions Indication:Diabetes mellitus type II, controlled, with no complications Start:26-Dec-2014 Instruction Type:Provider Instructions for Treatment How to access health informa tion online Indication:Diabetes mellitus type II, controlled, with no complications Start:29-Aug-2014 Instruction Type:Patient Education How to access health informa tion online - Detail Indication:Diabetes mellitus type II, controlled, with no complications Start:29-Aug-2014 Instruction Type:Patient Education Patient Instructions Indication:Diabetes mellitus type II, controlled, with no complications Start:29-Aug-2014 Instruction Type:Provider Instructions for Treatment Weight check (V05.4) Indication:Weight loss Start:08-Jun-2014 Instruction Type:Nursing Car e Education How to access health informa tion online Indication:Diabetes mellitus type II, controlled, with no complications Start:27-Apr-2014 Instruction Type:Patient Education How to access health informa tion online - Detail Indication:Diabetes mellitus type II, controlled, with no complications Start:27-Apr-2014 Instruction Type:Patient Education Patient Instructions Indication:Diabetes mellitus type II, controlled, with no complications Start:27-Apr-2014 Instruction Type:Provider Instructions for Treatment How to access health informa tion online - Detail Indication:Diabetes mellitus type II, controlled, with no complications Start:09-Dec-2013 Instruction Type:Patient Education Patient Instructions Indication:Hypocalcemia Start:07-Jan-2013 Instruction Type:Provider Instructions for Treatment Patient Instructions Indication:Diabetes mellitus type II, controlled, with no complications Start:08-Oct-2012 Instruction Type:Provider Instructions for Treatment [facility] Work Phone: Instructions* Name Dates Details Patient Instructions Indication:Diabetes mellitus type II, controlled, with no complications Start:20-Feb-2023 Instruction Type:Provider Instructions for Treatment How to Access Health Informa tion Online using Patient Portal and 3rd [employer] Apps Indication:Diabetes mellitus type II, controlled, with no complications Start:20-Feb-2023 Instruction Type:Patient Education Patient Instructions Indication:Diabetes mellitus type II, controlled, with no complications Start:27-Jun-2022 Instruction Type:Provider Instructions for Treatment How to Access Health Informa tion Online using Patient Portal and 3rd [employer] Apps Indication:Diabetes mellitus type II, controlled, with no complications Start:27-Jun-2022 Instruction Type:Patient Education Patient Instructions Indication:Non-smoker Start:28-Mar-2022 Instruction Type:Provider Instructions for Treatment How to Access Health Informa tion Online using Patient Portal and 3rd [employer] Apps Indication:Non-smoker Start:28-Mar-2022 Instruction Type:Patient Education Patient Instructions Indication:Non-smoker Start:14-Mar-2022 Instruction Type:Provider Instructions for Treatment How to Access Health Informa tion Online using Patient Portal and 3rd [employer] Apps Indication:Non-smoker Start:14-Mar-2022 Instruction Type:Patient Education Patient Instructions Indication:Diabetes mellitus type II, controlled, with no complications Start:11-Nov-2021 Instruction Type:Provider Instructions for Treatment How to Access Health Informa tion Online using Patient Portal and 3rd [employer] Apps Indication:Diabetes mellitus type II, controlled, with no complications Start:11-Nov-2021 Instruction Type:Patient Education Patient Instructions Indication:BMI 26.0-26.9,adult Start:07-Aug-2021 Instruction Type:Provider Instructions for Treatment How to Access Health Informa tion Online using Patient Portal and 3rd [employer] Apps Indication:BMI 26.0-26.9,adult Start:07-Aug-2021 Instruction Type:Patient Education Patient Instructions Indication:Diabetes mellitus type II, controlled, with no complications Start:08-May-2021 Instruction Type:Provider Instructions for Treatment How to Access Health Informa tion Online using Patient Portal and 3rd [employer] Apps Indication:Diabetes mellitus type II, controlled, with no complications Start:08-May-2021 Instruction Type:Patient Education Patient Instructions Indication:Diabetes mellitus type II, controlled, with no complications Start:07-Jan-2021 Instruction Type:Provider Instructions for Treatment How to Access Health Informa tion Online using Patient Portal and 3rd [employer] Apps Indication:Diabetes mellitus type II, controlled, with no complications Start:07-Jan-2021 Instruction Type:Patient Education Patient Instructions Indication:Diabetes mellitus type II, controlled, with no complications Start:03-Sep-2020 Instruction Type:Provider Instructions for Treatment How to Access Health Informa tion Online using Patient Portal and 3rd [employer] Apps Indication:Diabetes mellitus type II, controlled, with no complications Start:03-Sep-2020 Instruction Type:Patient Education Patient Instructions Indication:BMI 25.0-25.9,adult Start:04-May-2020 Instruction Type:Provider Instructions for Treatment How to Access Health Informa tion Online using Patient Portal and 3rd [employer] Apps Indication:BMI 25.0-25.9,adult Start:04-May-2020 Instruction Type:Patient Education How to access health informa tion online Indication:BMI 25.0-25.9,adult Start:14-Mar-2020 Instruction Type:Patient Education How to access health informa tion online - Detail Indication:BMI 25.0-25.9,adult Start:14-Mar-2020 Instruction Type:Patient Education Patient Instructions Indication:BMI 25.0-25.9,adult Start:14-Mar-2020 Instruction Type:Provider Instructions for Treatment How to access health informa tion online Indication:Non-smoker Start:02-Feb-2020 Instruction Type:Patient Education How to access health informa tion online - Detail Indication:Non-smoker Start:02-Feb-2020 Instruction Type:Patient Education Patient Instructions Indication:Non-smoker Start:02-Feb-2020 Instruction Type:Provider Instructions for Treatment How to access health informa tion online Indication:Non-smoker Start:02-Nov-2019 Instruction Type:Patient Education How to access health informa tion online - Detail Indication:Non-smoker Start:02-Nov-2019 Instruction Type:Patient Education Patient Instructions Indication:Non-smoker Start:02-Nov-2019 Instruction Type:Provider Instructions for Treatment How to access health informa tion online Indication:BMI 26.0-26.9,adult Start:28-Apr-2019 Instruction Type:Patient Education How to access health informa tion online - Detail Indication:BMI 26.0-26.9,adult Start:28-Apr-2019 Instruction Type:Patient Education Patient Instructions Indication:BMI 26.0-26.9,adult Start:28-Apr-2019 Instruction Type:Provider Instructions for Treatment How to access health informa tion online Indication:Diabetes mellitus type II, controlled, with no complications Start:23-Dec-2018 Instruction Type:Patient Education How to access health informa tion online - Detail Indication:Diabetes mellitus type II, controlled, with no complications Start:23-Dec-2018 Instruction Type:Patient Education Patient Instructions Indication:Diabetes mellitus type II, controlled, with no complications Start:23-Dec-2018 Instruction Type:Provider Instructions for Treatment Patient Instructions Indication:Non-smoker Start:30-Aug-2018 Instruction Type:Provider Instructions for Treatment How to access health informa tion online - Detail Indication:Non-smoker Start:30-Aug-2018 Instruction Type:Patient Education How to access health informa tion online Indication:Non-smoker Start:30-Aug-2018 Instruction Type:Patient Education Patient Instructions Indication:Non-smoker Start:30-Aug-2018 Instruction Type:Provider Instructions for Treatment How to access health informa tion online Indication:Diabetes mellitus type II, controlled, with no complications Start:17-May-2018 Instruction Type:Patient Education How to access health informa tion online - Detail Indication:Diabetes mellitus type II, controlled, with no complications Start:17-May-2018 Instruction Type:Patient Education Patient Instructions Indication:Diabetes mellitus type II, controlled, with no complications Start:17-May-2018 Instruction Type:Provider Instructions for Treatment How to access health informa tion online Indication:BMI 25.0-25.9,adult Start:12-Feb-2018 Instruction Type:Patient Education How to access health informa tion online - Detail Indication:BMI 25.0-25.9,adult Start:12-Feb-2018 Instruction Type:Patient Education Patient Instructions Indication:BMI 25.0-25.9,adult Start:12-Feb-2018 Instruction Type:Provider Instructions for Treatment How to access health informa tion online Indication:Diabetes mellitus type II, controlled, with no complications Start:17-Jul-2017 Instruction Type:Patient Education How to access health informa tion online - Detail Indication:Diabetes mellitus type II, controlled, with no complications Start:17-Jul-2017 Instruction Type:Patient Education Patient Instructions Indication:Diabetes mellitus type II, controlled, with no complications Start:17-Jul-2017 Instruction Type:Provider Instructions for Treatment How to access health informa tion online Indication:Non-smoker Start:10-Jul-2017 Instruction Type:Patient Education How to access health informa tion online - Detail Indication:Non-smoker Start:10-Jul-2017 Instruction Type:Patient Education Patient Instructions Indication:Non-smoker Start:10-Jul-2017 Instruction Type:Provider Instructions for Treatment How to access health informa tion online Indication:Diabetes mellitus type II, controlled, with no complications Start:17-Apr-2017 Instruction Type:Patient Education How to access health informa tion online - Detail Indication:Diabetes mellitus type II, controlled, with no complications Start:17-Apr-2017 Instruction Type:Patient Education Patient Instructions Indication:Diabetes mellitus type II, controlled, with no complications Start:17-Apr-2017 Instruction Type:Provider Instructions for Treatment How to access health informa tion online Indication:Tobacco abuse, 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) Start:27-Mar-2017 Instruction Type:Patient Education How to access health informa tion online - Detail Indication:Tobacco abuse, 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) Start:27-Mar-2017 Instruction Type:Patient Education Patient Instructions Indication:Tobacco abuse, 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) Start:27-Mar-2017 Instruction Type:Provider Instructions for Treatment How to access health informa tion online Indication:Diabetes mellitus type II, controlled, with no complications Start:09-Oct-2016 Instruction Type:Patient Education How to access health informa tion online - Detail Indication:Diabetes mellitus type II, controlled, with no complications Start:09-Oct-2016 Instruction Type:Patient Education How to access health informa tion online - Detail Indication:Diabetes mellitus type II, controlled, with no complications Start:09-Oct-2016 Instruction Type:Patient Education Patient Instructions Indication:Diabetes mellitus type II, controlled, with no complications Start:09-Oct-2016 Instruction Type:Provider Instructions for Treatment How to access health informa tion online Indication:Diabetes mellitus type II, controlled, with no complications Start:11-Jun-2016 Instruction Type:Patient Education How to access health informa tion online - Detail Indication:Diabetes mellitus type II, controlled, with no complications Start:11-Jun-2016 Instruction Type:Patient Education Patient Instructions Indication:Diabetes mellitus type II, controlled, with no complications Start:11-Jun-2016 Instruction Type:Provider Instructions for Treatment How to access health informa tion online Indication:Body mass index (BMI) 24.0-24.9, adult Start:22-Apr-2016 Instruction Type:Patient Education How to access health informa tion online - Detail Indication:Body mass index (BMI) 24.0-24.9, adult Start:22-Apr-2016 Instruction Type:Patient Education Patient Instructions Indication:Body mass index (BMI) 24.0-24.9, adult Start:22-Apr-2016 Instruction Type:Provider Instructions for Treatment How to access health informa tion online Indication:Diabetes mellitus type II, controlled, with no complications Start:10-Mar-2016 Instruction Type:Patient Education How to access health informa tion online - Detail Indication:Diabetes mellitus type II, controlled, with no complications Start:10-Mar-2016 Instruction Type:Patient Education Patient Instructions Indication:Diabetes mellitus type II, controlled, with no complications Start:10-Mar-2016 Instruction Type:Provider Instructions for Treatment How to access health informa tion online Indication:Diabetes mellitus type II, controlled, with no complications Start:16-Jul-2015 Instruction Type:Patient Education How to access health informa tion online - Detail Indication:Diabetes mellitus type II, controlled, with no complications Start:16-Jul-2015 Instruction Type:Patient Education Patient Instructions Indication:Diabetes mellitus type II, controlled, with no complications Start:16-Jul-2015 Instruction Type:Provider Instructions for Treatment How to access health informa tion online Indication:Diabetes mellitus type II, controlled, with no complications Start:26-Dec-2014 Instruction Type:Patient Education How to access health informa tion online - Detail Indication:Diabetes mellitus type II, controlled, with no complications Start:26-Dec-2014 Instruction Type:Patient Education Patient Instructions Indication:Diabetes mellitus type II, controlled, with no complications Start:26-Dec-2014 Instruction Type:Provider Instructions for Treatment How to access health informa tion online Indication:Diabetes mellitus type II, controlled, with no complications Start:29-Aug-2014 Instruction Type:Patient Education How to access health informa tion online - Detail Indication:Diabetes mellitus type II, controlled, with no complications Start:29-Aug-2014 Instruction Type:Patient Education Patient Instructions Indication:Diabetes mellitus type II, controlled, with no complications Start:29-Aug-2014 Instruction Type:Provider Instructions for Treatment Weight check (V05.4) Indication:Weight loss Start:08-Jun-2014 Instruction Type:Nursing Car e Education How to access health informa tion online Indication:Diabetes mellitus type II, controlled, with no complications Start:27-Apr-2014 Instruction Type:Patient Education How to access health informa tion online - Detail Indication:Diabetes mellitus type II, controlled, with no complications Start:27-Apr-2014 Instruction Type:Patient Education Patient Instructions Indication:Diabetes mellitus type II, controlled, with no complications Start:27-Apr-2014 Instruction Type:Provider Instructions for Treatment How to access health informa tion online - Detail Indication:Diabetes mellitus type II, controlled, with no complications Start:09-Dec-2013 Instruction Type:Patient Education Patient Instructions Indication:Hypocalcemia Start:07-Jan-2013 Instruction Type:Provider Instructions for Treatment Patient Instructions Indication:Diabetes mellitus type II, controlled, with no complications Start:08-Oct-2012 Instruction Type:Provider Instructions for Treatment [facility]; [facility] Work Phone: reason for referral (narrative)No reason for referral information availableW[facility]: Family History Unknown Family Member Name Dates Details Family Members In General Comments:Heart/Lung disease, HBP Status:Active Father Comments:CAD-started 42, Status:Active Mother Comments: at 61, thoraci c [place] Status:Active Unknown Family Member Name Dates Details Family Members In General Comments:Heart/Lung disease, HBP Status:Active Father Comments:CAD-started 42, Status:Active Mother Comments: at 61, thoraci c [place] Status:Active Unknown Family Member Name Dates Details Family Members In General Comments:Heart/Lung disease, HBP Status:Active Father Comments:CAD-started 42, Status:Active Mother Comments: at 61, thoraci c [place] Status:Active Unknown Family Member Name Dates Details Family Members In General Comments:Heart/Lung disease, HBP Status:Active Father Comments:CAD-started 42, Status:Active Mother Comments: at 61, thoraci c [place] Status:Active Unknown Family Member Name Dates Details Family Members In General Comments:Heart/Lung disease, HBP Status:Active Father Comments:CAD-started 42, Status:Active Mother Comments: at 61, thoraci c [place] Status:Active Unknown Family Member Name Dates Details Family Members In General Comments:Heart/Lung disease, HBP Status:Active Father Comments:CAD-started 42, Status:Active Mother Comments: at 61, [place]aci [place] Status:Active Unknown Family Member Name Dates Details Family Members In General Comments:Heart/Lung disease, HBP Status:Active Father Comments:CAD-started 42, Status:Active Mother Comments: at 61, [place]aci [place] Status:Active Unknown Family Member Name Dates Details Family Members In General Comments:Heart/Lung disease, HBP Status:Active Father Comments:CAD-started 42, Status:Active Mother Comments: at 61, [place]aci [place] Status:Active Unknown Family Member Name Dates Details Family Members In General Comments:Heart/Lung disease, HBP Status:Active Father Comments:CAD-started 42, Status:Active Mother Comments: at 61, [place] Status:Active Unknown Family Member Name Dates Details Family Members In General Comments:Heart/Lung disease, HBP Status:Active Father Comments:CAD-started 42, Status:Active Mother Comments: at 61, [place] Status:Active Unknown Family Member Name Dates Details Family Members In General Comments:Heart/Lung disease, HBP Status:Active Father Comments:CAD-started 42, Status:Active Mother Comments: at 61, [place] Status:Active Unknown Family Member Name Dates Details Family Members In General Comments:Heart/Lung disease, HBP Status:Active Father Comments:CAD-started 42, Status:Active Mother Comments: at 61, [place] Status:Active Unknown Family Member Name Dates Details Family Members In General Comments:Heart/Lung disease, HBP Status:Active Father Comments:CAD-started 42, Status:Active Mother Comments: at 61, [place] Status:Active Unknown Family Member Name Dates Details Family Members In General Comments:Heart/Lung disease, HBP Status:Active Father Comments:CAD-started 42, Status:Active Mother Comments: at 61, [place] Status:Active Unknown Family Member Name Dates Details Family Members In General Comments:Heart/Lung disease, HBP Status:Active Father Comments:CAD-started 42, Status:Active Mother Comments: at 61, [place] Status:Active Relationship Condition Age at Onset Recorded Date/T yayo father Diabetes mellitus Unknown Cardiac disease Unknown Hypertension Unknown brother Seizure Unknown mother Malignant neoplasm Unknown Unknown Family Member Name Dates Details Family Members In General Comments:Heart/Lung disease, HBP Status:Active Father Comments:CAD-started 42, Status:Active Mother Comments: at 61, [place] Status:Active Unknown Family Member Name Dates Details Family Members In General Comments:Heart/Lung disease, HBP Status:Active Father Comments:CAD-started 42, Status:Active Mother Comments: at 61, [place] Status:Active Unknown Family Member Name Dates Details Family Members In General Comments:Heart/Lung disease, HBP Status:Active Father Comments:CAD-started 42, Status:Active Mother Comments: at 61, [place] Status:Active Unknown Family Member Name Dates Details Family Members In General Comments:Heart/Lung disease, HBP Status:Active Father Comments:CAD-started 42, Status:Active Mother Comments: at 61, [place] Status:Active Unknown Family Member Name Dates Details Family Members In General Comments:Heart/Lung disease, HBP Status:Active Father Comments:CAD-started 42, Status:Active Mother Comments: at 61, [place] Status:Active Unknown Family Member Name Dates Details Family Members In General Comments:Heart/Lung disease, HBP Status:Active Father Comments:CAD-started 42, Status:Active Mother Comments: at 61, [place] Status:Active Unknown Family Member Name Dates Details Family Members In General Comments:Heart/Lung disease, HBP Status:Active Father Comments:CAD-started 42, Status:Active Mother Comments: at 61, [place] Status:Active Unknown Family Member Name Dates Details Family Members In General Comments:Heart/Lung disease, HBP Status:Active Father Comments:CAD-started 42, Status:Active Mother Comments: at 61, [place] Status:Active Unknown Family Member Name Dates Details Family Members In General Comments:Heart/Lung disease, HBP Status:Active Father Comments:CAD-started 42, Status:Active Mother Comments: at 61, [place] Status:Active Unknown Family Member Name Dates Details Family Members In General Comments:Heart/Lung disease, HBP Status:Active Father Comments:CAD-started 42, Status:Active Mother Comments: at 61, [place] Status:Active Unknown Family Member Name Dates Details Family Members In General Comments:Heart/Lung disease, HBP Status:Active Father Comments:CAD-started 42, Status:Active Mother Comments: at 61, [place] Status:Active Unknown Family Member Name Dates Details Family Members In General Comments:Heart/Lung disease, HBP Status:Active Father Comments:CAD-started 42, Status:Active Mother Comments: at 61, [place] Status:Active Unknown Family Member Name Dates Details Family Members In General Comments:Heart/Lung disease, HBP Status:Active Father Comments:CAD-started 42, Status:Active Mother Comments: at 61, [place] Status:Active Unknown Family Member Name Dates Details Family Members In General Comments:Heart/Lung disease, HBP Status:Active Father Comments:CAD-started 42, Status:Active Mother Comments: at 61, [place] Status:Active Unknown Family Member Name Dates Details Family Members In General Comments:Heart/Lung disease, HBP Status:Active Father Comments:CAD-started 42, Status:Active Mother Comments: at 61, [place] Status:Active Instructions Name Dates Details BMI 25.0-25.9,adult : How to access health information online Indication:BMI 25.0-25.9,adult BMI 25.0-25.9,adult : How to access health information online - Detail Indication:BMI 25.0-25.9,adult BMI 25.0-25.9,adult : Patien t Instructions Indication:BMI 25.0-25.9,adult Diabetes mellitus type II, c ontrolled, with no complications : How to access health information online Indication:Diabetes mellitus type II, controlled, with no complications Diabetes mellitus type II, c ontrolled, with no complications : How to access health information online - Detail Indication:Diabetes mellitus type II, controlled, with no complications Diabetes mellitus type II, c ontrolled, with no complications : Patient Instructions Indication:Diabetes mellitus type II, controlled, with no complications Non-smoker : How to access h ealth information online Indication:Non-smoker Non-smoker : How to access h ealth information online - Detail Indication:Non-smoker Non-smoker : Patient Instruc tions Indication:Non-smoker Tobacco abuse, 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) : How to access health information online Indication:Tobacco abuse, 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, 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) : How to access health information online - Detail Indication:Tobacco abuse, 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, 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) : Patient Instructions Indication:Tobacco abuse, 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) Body mass index (BMI) 24.0-2 4.9, adult : How to access health information online Indication:Body mass index (BMI) 24.0-24.9, adult Body mass index (BMI) 24.0-2 4.9, adult : How to access health information online - Detail Indication:Body mass index (BMI) 24.0-24.9, adult Body mass index (BMI) 24.0-2 4.9, adult : Patient Instructions Indication:Body mass index (BMI) 24.0-24.9, adult Weight loss : Weight check ( V05.4) Indication:Weight loss Hypocalcemia : Patient Instr uctions Indication:Hypocalcemia Name Dates Details Diabetes mellitus type II, c ontrolled, with no complications : How to access health information online Indication:Diabetes mellitus type II, controlled, with no complications Diabetes mellitus type II, c ontrolled, with no complications : How to access health information online - Detail Indication:Diabetes mellitus type II, controlled, with no complications Diabetes mellitus type II, c ontrolled, with no complications : Patient Instructions Indication:Diabetes mellitus type II, controlled, with no complications BMI 25.0-25.9,adult : How to access health information online Indication:BMI 25.0-25.9,adult BMI 25.0-25.9,adult : How to access health information online - Detail Indication:BMI 25.0-25.9,adult BMI 25.0-25.9,adult : Patien t Instructions Indication:BMI 25.0-25.9,adult Non-smoker : How to access h ealth information online Indication:Non-smoker Non-smoker : How to access h ealth information online - Detail Indication:Non-smoker Non-smoker : Patient Instruc tions Indication:Non-smoker Tobacco abuse, 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) : How to access health information online Indication:Tobacco abuse, 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, 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) : How to access health information online - Detail Indication:Tobacco abuse, 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, 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) : Patient Instructions Indication:Tobacco abuse, 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) Body mass index (BMI) 24.0-2 4.9, adult : How to access health information online Indication:Body mass index (BMI) 24.0-24.9, adult Body mass index (BMI) 24.0-2 4.9, adult : How to access health information online - Detail Indication:Body mass index (BMI) 24.0-24.9, adult Body mass index (BMI) 24.0-2 4.9, adult : Patient Instructions Indication:Body mass index (BMI) 24.0-24.9, adult Weight loss : Weight check ( V05.4) Indication:Weight loss Hypocalcemia : Patient Instr uctions Indication:Hypocalcemia Name Dates Details Non-smoker : Patient Instruc tions Indication:Non-smoker Non-smoker : How to access h ealth information online - Detail Indication:Non-smoker Non-smoker : How to access h ealth information online Indication:Non-smoker Diabetes mellitus type II, c ontrolled, with no complications : How to access health information online Indication:Diabetes mellitus type II, controlled, with no complications Diabetes mellitus type II, c ontrolled, with no complications : How to access health information online - Detail Indication:Diabetes mellitus type II, controlled, with no complications Diabetes mellitus type II, c ontrolled, with no complications : Patient Instructions Indication:Diabetes mellitus type II, controlled, with no complications BMI 25.0-25.9,adult : How to access health information online Indication:BMI 25.0-25.9,adult BMI 25.0-25.9,adult : How to access health information online - Detail Indication:BMI 25.0-25.9,adult BMI 25.0-25.9,adult : Patien t Instructions Indication:BMI 25.0-25.9,adult Tobacco abuse, 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) : How to access health information online Indication:Tobacco abuse, 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, 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) : How to access health information online - Detail Indication:Tobacco abuse, 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, 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) : Patient Instructions Indication:Tobacco abuse, 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) Body mass index (BMI) 24.0-2 4.9, adult : How to access health information online Indication:Body mass index (BMI) 24.0-24.9, adult Body mass index (BMI) 24.0-2 4.9, adult : How to access health information online - Detail Indication:Body mass index (BMI) 24.0-24.9, adult Body mass index (BMI) 24.0-2 4.9, adult : Patient Instructions Indication:Body mass index (BMI) 24.0-24.9, adult Weight loss : Weight check ( V05.4) Indication:Weight loss Hypocalcemia : Patient Instr uctions Indication:Hypocalcemia Name Dates Details Patient Instructions Indication:Non-smoker Start:30-Aug-2018 Instruction Type:Provider Instructions for Treatment How to access health informa tion online - Detail Indication:Non-smoker Start:30-Aug-2018 Instruction Type:Patient Education How to access health informa tion online Indication:Non-smoker Start:30-Aug-2018 Instruction Type:Patient Education How to access health informa tion online Indication:Diabetes mellitus type II, controlled, with no complications Start:17-May-2018 Instruction Type:Patient Education How to access health informa tion online - Detail Indication:Diabetes mellitus type II, controlled, with no complications Start:17-May-2018 Instruction Type:Patient Education Patient Instructions Indication:Diabetes mellitus type II, controlled, with no complications Start:17-May-2018 Instruction Type:Provider Instructions for Treatment How to access health informa tion online Indication:BMI 25.0-25.9,adult Start:12-Feb-2018 Instruction Type:Patient Education How to access health informa tion online - Detail Indication:BMI 25.0-25.9,adult Start:12-Feb-2018 Instruction Type:Patient Education Patient Instructions Indication:BMI 25.0-25.9,adult Start:12-Feb-2018 Instruction Type:Provider Instructions for Treatment How to access health informa tion online Indication:Diabetes mellitus type II, controlled, with no complications Start:17-Jul-2017 Instruction Type:Patient Education How to access health informa tion online - Detail Indication:Diabetes mellitus type II, controlled, with no complications Start:17-Jul-2017 Instruction Type:Patient Education Patient Instructions Indication:Diabetes mellitus type II, controlled, with no complications Start:17-Jul-2017 Instruction Type:Provider Instructions for Treatment How to access health informa tion online Indication:Non-smoker Start:10-Jul-2017 Instruction Type:Patient Education How to access health informa tion online - Detail Indication:Non-smoker Start:10-Jul-2017 Instruction Type:Patient Education Patient Instructions Indication:Non-smoker Start:10-Jul-2017 Instruction Type:Provider Instructions for Treatment How to access health informa tion online Indication:Diabetes mellitus type II, controlled, with no complications Start:17-Apr-2017 Instruction Type:Patient Education How to access health informa tion online - Detail Indication:Diabetes mellitus type II, controlled, with no complications Start:17-Apr-2017 Instruction Type:Patient Education Patient Instructions Indication:Diabetes mellitus type II, controlled, with no complications Start:17-Apr-2017 Instruction Type:Provider Instructions for Treatment How to access health informa tion online Indication:Tobacco abuse, 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) Start:27-Mar-2017 Instruction Type:Patient Education How to access health informa tion online - Detail Indication:Tobacco abuse, 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) Start:27-Mar-2017 Instruction Type:Patient Education Patient Instructions Indication:Tobacco abuse, 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) Start:27-Mar-2017 Instruction Type:Provider Instructions for Treatment How to access health informa tion online Indication:Diabetes mellitus type II, controlled, with no complications Start:09-Oct-2016 Instruction Type:Patient Education How to access health informa tion online - Detail Indication:Diabetes mellitus type II, controlled, with no complications Start:09-Oct-2016 Instruction Type:Patient Education Patient Instructions Indication:Diabetes mellitus type II, controlled, with no complications Start:09-Oct-2016 Instruction Type:Provider Instructions for Treatment How to access health informa tion online Indication:Diabetes mellitus type II, controlled, with no complications Start:11-Jun-2016 Instruction Type:Patient Education How to access health informa tion online - Detail Indication:Diabetes mellitus type II, controlled, with no complications Start:11-Jun-2016 Instruction Type:Patient Education Patient Instructions Indication:Diabetes mellitus type II, controlled, with no complications Start:11-Jun-2016 Instruction Type:Provider Instructions for Treatment How to access health informa tion online Indication:Body mass index (BMI) 24.0-24.9, adult Start:22-Apr-2016 Instruction Type:Patient Education How to access health informa tion online - Detail Indication:Body mass index (BMI) 24.0-24.9, adult Start:22-Apr-2016 Instruction Type:Patient Education Patient Instructions Indication:Body mass index (BMI) 24.0-24.9, adult Start:22-Apr-2016 Instruction Type:Provider Instructions for Treatment How to access health informa tion online Indication:Diabetes mellitus type II, controlled, with no complications Start:10-Mar-2016 Instruction Type:Patient Education How to access health informa tion online - Detail Indication:Diabetes mellitus type II, controlled, with no complications Start:10-Mar-2016 Instruction Type:Patient Education Patient Instructions Indication:Diabetes mellitus type II, controlled, with no complications Start:10-Mar-2016 Instruction Type:Provider Instructions for Treatment How to access health informa tion online Indication:Diabetes mellitus type II, controlled, with no complications Start:16-Jul-2015 Instruction Type:Patient Education How to access health informa tion online - Detail Indication:Diabetes mellitus type II, controlled, with no complications Start:16-Jul-2015 Instruction Type:Patient Education Patient Instructions Indication:Diabetes mellitus type II, controlled, with no complications Start:16-Jul-2015 Instruction Type:Provider Instructions for Treatment How to access health informa tion online Indication:Diabetes mellitus type II, controlled, with no complications Start:26-Dec-2014 Instruction Type:Patient Education How to access health informa tion online - Detail Indication:Diabetes mellitus type II, controlled, with no complications Start:26-Dec-2014 Instruction Type:Patient Education Patient Instructions Indication:Diabetes mellitus type II, controlled, with no complications Start:26-Dec-2014 Instruction Type:Provider Instructions for Treatment How to access health informa tion online Indication:Diabetes mellitus type II, controlled, with no complications Start:29-Aug-2014 Instruction Type:Patient Education How to access health informa tion online - Detail Indication:Diabetes mellitus type II, controlled, with no complications Start:29-Aug-2014 Instruction Type:Patient Education Patient Instructions Indication:Diabetes mellitus type II, controlled, with no complications Start:29-Aug-2014 Instruction Type:Provider Instructions for Treatment Weight check (V05.4) Indication:Weight loss Start:08-Jun-2014 Instruction Type:Nursing Car e Education How to access health informa tion online Indication:Diabetes mellitus type II, controlled, with no complications Start:27-Apr-2014 Instruction Type:Patient Education How to access health informa tion online - Detail Indication:Diabetes mellitus type II, controlled, with no complications Start:27-Apr-2014 Instruction Type:Patient Education Patient Instructions Indication:Diabetes mellitus type II, controlled, with no complications Start:27-Apr-2014 Instruction Type:Provider Instructions for Treatment How to access health informa tion online - Detail Indication:Diabetes mellitus type II, controlled, with no complications Start:09-Dec-2013 Instruction Type:Patient Education Patient Instructions Indication:Hypocalcemia Start:07-Jan-2013 Instruction Type:Provider Instructions for Treatment Patient Instructions Indication:Diabetes mellitus type II, controlled, with no complications Start:08-Oct-2012 Instruction Type:Provider Instructions for Treatment Name Dates Details How to access health informa tion online Indication:Diabetes mellitus type II, controlled, with no complications Start:23-Dec-2018 Instruction Type:Patient Education How to access health informa tion online - Detail Indication:Diabetes mellitus type II, controlled, with no complications Start:23-Dec-2018 Instruction Type:Patient Education Patient Instructions Indication:Diabetes mellitus type II, controlled, with no complications Start:23-Dec-2018 Instruction Type:Provider Instructions for Treatment Patient Instructions Indication:Non-smoker Start:30-Aug-2018 Instruction Type:Provider Instructions for Treatment How to access health informa tion online - Detail Indication:Non-smoker Start:30-Aug-2018 Instruction Type:Patient Education How to access health informa tion online Indication:Non-smoker Start:30-Aug-2018 Instruction Type:Patient Education How to access health informa tion online Indication:Diabetes mellitus type II, controlled, with no complications Start:17-May-2018 Instruction Type:Patient Education How to access health informa tion online - Detail Indication:Diabetes mellitus type II, controlled, with no complications Start:17-May-2018 Instruction Type:Patient Education Patient Instructions Indication:Diabetes mellitus type II, controlled, with no complications Start:17-May-2018 Instruction Type:Provider Instructions for Treatment How to access health informa tion online Indication:BMI 25.0-25.9,adult Start:12-Feb-2018 Instruction Type:Patient Education How to access health informa tion online - Detail Indication:BMI 25.0-25.9,adult Start:12-Feb-2018 Instruction Type:Patient Education Patient Instructions Indication:BMI 25.0-25.9,adult Start:12-Feb-2018 Instruction Type:Provider Instructions for Treatment How to access health informa tion online Indication:Diabetes mellitus type II, controlled, with no complications Start:17-Jul-2017 Instruction Type:Patient Education How to access health informa tion online - Detail Indication:Diabetes mellitus type II, controlled, with no complications Start:17-Jul-2017 Instruction Type:Patient Education Patient Instructions Indication:Diabetes mellitus type II, controlled, with no complications Start:17-Jul-2017 Instruction Type:Provider Instructions for Treatment How to access health informa tion online Indication:Non-smoker Start:10-Jul-2017 Instruction Type:Patient Education How to access health informa tion online - Detail Indication:Non-smoker Start:10-Jul-2017 Instruction Type:Patient Education Patient Instructions Indication:Non-smoker Start:10-Jul-2017 Instruction Type:Provider Instructions for Treatment How to access health informa tion online Indication:Diabetes mellitus type II, controlled, with no complications Start:17-Apr-2017 Instruction Type:Patient Education How to access health informa tion online - Detail Indication:Diabetes mellitus type II, controlled, with no complications Start:17-Apr-2017 Instruction Type:Patient Education Patient Instructions Indication:Diabetes mellitus type II, controlled, with no complications Start:17-Apr-2017 Instruction Type:Provider Instructions for Treatment How to access health informa tion online Indication:Tobacco abuse, 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) Start:27-Mar-2017 Instruction Type:Patient Education How to access health informa tion online - Detail Indication:Tobacco abuse, 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) Start:27-Mar-2017 Instruction Type:Patient Education Patient Instructions Indication:Tobacco abuse, 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) Start:27-Mar-2017 Instruction Type:Provider Instructions for Treatment How to access health informa tion online Indication:Diabetes mellitus type II, controlled, with no complications Start:09-Oct-2016 Instruction Type:Patient Education How to access health informa tion online - Detail Indication:Diabetes mellitus type II, controlled, with no complications Start:09-Oct-2016 Instruction Type:Patient Education Patient Instructions Indication:Diabetes mellitus type II, controlled, with no complications Start:09-Oct-2016 Instruction Type:Provider Instructions for Treatment How to access health informa tion online Indication:Diabetes mellitus type II, controlled, with no complications Start:11-Jun-2016 Instruction Type:Patient Education How to access health informa tion online - Detail Indication:Diabetes mellitus type II, controlled, with no complications Start:11-Jun-2016 Instruction Type:Patient Education Patient Instructions Indication:Diabetes mellitus type II, controlled, with no complications Start:11-Jun-2016 Instruction Type:Provider Instructions for Treatment How to access health informa tion online Indication:Body mass index (BMI) 24.0-24.9, adult Start:22-Apr-2016 Instruction Type:Patient Education How to access health informa tion online - Detail Indication:Body mass index (BMI) 24.0-24.9, adult Start:22-Apr-2016 Instruction Type:Patient Education Patient Instructions Indication:Body mass index (BMI) 24.0-24.9, adult Start:22-Apr-2016 Instruction Type:Provider Instructions for Treatment How to access health informa tion online Indication:Diabetes mellitus type II, controlled, with no complications Start:10-Mar-2016 Instruction Type:Patient Education How to access health informa tion online - Detail Indication:Diabetes mellitus type II, controlled, with no complications Start:10-Mar-2016 Instruction Type:Patient Education Patient Instructions Indication:Diabetes mellitus type II, controlled, with no complications Start:10-Mar-2016 Instruction Type:Provider Instructions for Treatment How to access health informa tion online Indication:Diabetes mellitus type II, controlled, with no complications Start:16-Jul-2015 Instruction Type:Patient Education How to access health informa tion online - Detail Indication:Diabetes mellitus type II, controlled, with no complications Start:16-Jul-2015 Instruction Type:Patient Education Patient Instructions Indication:Diabetes mellitus type II, controlled, with no complications Start:16-Jul-2015 Instruction Type:Provider Instructions for Treatment How to access health informa tion online Indication:Diabetes mellitus type II, controlled, with no complications Start:26-Dec-2014 Instruction Type:Patient Education How to access health informa tion online - Detail Indication:Diabetes mellitus type II, controlled, with no complications Start:26-Dec-2014 Instruction Type:Patient Education Patient Instructions Indication:Diabetes mellitus type II, controlled, with no complications Start:26-Dec-2014 Instruction Type:Provider Instructions for Treatment How to access health informa tion online Indication:Diabetes mellitus type II, controlled, with no complications Start:29-Aug-2014 Instruction Type:Patient Education How to access health informa tion online - Detail Indication:Diabetes mellitus type II, controlled, with no complications Start:29-Aug-2014 Instruction Type:Patient Education Patient Instructions Indication:Diabetes mellitus type II, controlled, with no complications Start:29-Aug-2014 Instruction Type:Provider Instructions for Treatment Weight check (V05.4) Indication:Weight loss Start:08-Jun-2014 Instruction Type:Nursing Car e Education How to access health informa tion online Indication:Diabetes mellitus type II, controlled, with no complications Start:27-Apr-2014 Instruction Type:Patient Education How to access health informa tion online - Detail Indication:Diabetes mellitus type II, controlled, with no complications Start:27-Apr-2014 Instruction Type:Patient Education Patient Instructions Indication:Diabetes mellitus type II, controlled, with no complications Start:27-Apr-2014 Instruction Type:Provider Instructions for Treatment How to access health informa tion online - Detail Indication:Diabetes mellitus type II, controlled, with no complications Start:09-Dec-2013 Instruction Type:Patient Education Patient Instructions Indication:Hypocalcemia Start:07-Jan-2013 Instruction Type:Provider Instructions for Treatment Patient Instructions Indication:Diabetes mellitus type II, controlled, with no complications Start:08-Oct-2012 Instruction Type:Provider Instructions for Treatment Name Dates Details How to access health informa tion online Indication:Non-smoker Start:02-Nov-2019 Instruction Type:Patient Education How to access health informa tion online - Detail Indication:Non-smoker Start:02-Nov-2019 Instruction Type:Patient Education Patient Instructions Indication:Non-smoker Start:02-Nov-2019 Instruction Type:Provider Instructions for Treatment How to access health informa tion online Indication:BMI 26.0-26.9,adult Start:28-Apr-2019 Instruction Type:Patient Education How to access health informa tion online - Detail Indication:BMI 26.0-26.9,adult Start:28-Apr-2019 Instruction Type:Patient Education Patient Instructions Indication:BMI 26.0-26.9,adult Start:28-Apr-2019 Instruction Type:Provider Instructions for Treatment How to access health informa tion online Indication:Diabetes mellitus type II, controlled, with no complications Start:23-Dec-2018 Instruction Type:Patient Education How to access health informa tion online - Detail Indication:Diabetes mellitus type II, controlled, with no complications Start:23-Dec-2018 Instruction Type:Patient Education Patient Instructions Indication:Diabetes mellitus type II, controlled, with no complications Start:23-Dec-2018 Instruction Type:Provider Instructions for Treatment Patient Instructions Indication:Non-smoker Start:30-Aug-2018 Instruction Type:Provider Instructions for Treatment How to access health informa tion online - Detail Indication:Non-smoker Start:30-Aug-2018 Instruction Type:Patient Education How to access health informa tion online Indication:Non-smoker Start:30-Aug-2018 Instruction Type:Patient Education How to access health informa tion online Indication:Diabetes mellitus type II, controlled, with no complications Start:17-May-2018 Instruction Type:Patient Education How to access health informa tion online - Detail Indication:Diabetes mellitus type II, controlled, with no complications Start:17-May-2018 Instruction Type:Patient Education Patient Instructions Indication:Diabetes mellitus type II, controlled, with no complications Start:17-May-2018 Instruction Type:Provider Instructions for Treatment How to access health informa tion online Indication:BMI 25.0-25.9,adult Start:12-Feb-2018 Instruction Type:Patient Education How to access health informa tion online - Detail Indication:BMI 25.0-25.9,adult Start:12-Feb-2018 Instruction Type:Patient Education Patient Instructions Indication:BMI 25.0-25.9,adult Start:12-Feb-2018 Instruction Type:Provider Instructions for Treatment How to access health informa tion online Indication:Diabetes mellitus type II, controlled, with no complications Start:17-Jul-2017 Instruction Type:Patient Education How to access health informa tion online - Detail Indication:Diabetes mellitus type II, controlled, with no complications Start:17-Jul-2017 Instruction Type:Patient Education Patient Instructions Indication:Diabetes mellitus type II, controlled, with no complications Start:17-Jul-2017 Instruction Type:Provider Instructions for Treatment How to access health informa tion online Indication:Non-smoker Start:10-Jul-2017 Instruction Type:Patient Education How to access health informa tion online - Detail Indication:Non-smoker Start:10-Jul-2017 Instruction Type:Patient Education Patient Instructions Indication:Non-smoker Start:10-Jul-2017 Instruction Type:Provider Instructions for Treatment How to access health informa tion online Indication:Diabetes mellitus type II, controlled, with no complications Start:17-Apr-2017 Instruction Type:Patient Education How to access health informa tion online - Detail Indication:Diabetes mellitus type II, controlled, with no complications Start:17-Apr-2017 Instruction Type:Patient Education Patient Instructions Indication:Diabetes mellitus type II, controlled, with no complications Start:17-Apr-2017 Instruction Type:Provider Instructions for Treatment How to access health informa tion online Indication:Tobacco abuse, 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) Start:27-Mar-2017 Instruction Type:Patient Education How to access health informa tion online - Detail Indication:Tobacco abuse, 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) Start:27-Mar-2017 Instruction Type:Patient Education Patient Instructions Indication:Tobacco abuse, 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) Start:27-Mar-2017 Instruction Type:Provider Instructions for Treatment How to access health informa tion online Indication:Diabetes mellitus type II, controlled, with no complications Start:09-Oct-2016 Instruction Type:Patient Education How to access health informa tion online - Detail Indication:Diabetes mellitus type II, controlled, with no complications Start:09-Oct-2016 Instruction Type:Patient Education Patient Instructions Indication:Diabetes mellitus type II, controlled, with no complications Start:09-Oct-2016 Instruction Type:Provider Instructions for Treatment How to access health informa tion online Indication:Diabetes mellitus type II, controlled, with no complications Start:11-Jun-2016 Instruction Type:Patient Education How to access health informa tion online - Detail Indication:Diabetes mellitus type II, controlled, with no complications Start:11-Jun-2016 Instruction Type:Patient Education Patient Instructions Indication:Diabetes mellitus type II, controlled, with no complications Start:11-Jun-2016 Instruction Type:Provider Instructions for Treatment How to access health informa tion online Indication:Body mass index (BMI) 24.0-24.9, adult Start:22-Apr-2016 Instruction Type:Patient Education How to access health informa tion online - Detail Indication:Body mass index (BMI) 24.0-24.9, adult Start:22-Apr-2016 Instruction Type:Patient Education Patient Instructions Indication:Body mass index (BMI) 24.0-24.9, adult Start:22-Apr-2016 Instruction Type:Provider Instructions for Treatment How to access health informa tion online Indication:Diabetes mellitus type II, controlled, with no complications Start:10-Mar-2016 Instruction Type:Patient Education How to access health informa tion online - Detail Indication:Diabetes mellitus type II, controlled, with no complications Start:10-Mar-2016 Instruction Type:Patient Education Patient Instructions Indication:Diabetes mellitus type II, controlled, with no complications Start:10-Mar-2016 Instruction Type:Provider Instructions for Treatment How to access health informa tion online Indication:Diabetes mellitus type II, controlled, with no complications Start:16-Jul-2015 Instruction Type:Patient Education How to access health informa tion online - Detail Indication:Diabetes mellitus type II, controlled, with no complications Start:16-Jul-2015 Instruction Type:Patient Education Patient Instructions Indication:Diabetes mellitus type II, controlled, with no complications Start:16-Jul-2015 Instruction Type:Provider Instructions for Treatment How to access health informa tion online Indication:Diabetes mellitus type II, controlled, with no complications Start:26-Dec-2014 Instruction Type:Patient Education How to access health informa tion online - Detail Indication:Diabetes mellitus type II, controlled, with no complications Start:26-Dec-2014 Instruction Type:Patient Education Patient Instructions Indication:Diabetes mellitus type II, controlled, with no complications Start:26-Dec-2014 Instruction Type:Provider Instructions for Treatment How to access health informa tion online Indication:Diabetes mellitus type II, controlled, with no complications Start:29-Aug-2014 Instruction Type:Patient Education How to access health informa tion online - Detail Indication:Diabetes mellitus type II, controlled, with no complications Start:29-Aug-2014 Instruction Type:Patient Education Patient Instructions Indication:Diabetes mellitus type II, controlled, with no complications Start:29-Aug-2014 Instruction Type:Provider Instructions for Treatment Weight check (V05.4) Indication:Weight loss Start:08-Jun-2014 Instruction Type:Nursing Car e Education How to access health informa tion online Indication:Diabetes mellitus type II, controlled, with no complications Start:27-Apr-2014 Instruction Type:Patient Education How to access health informa tion online - Detail Indication:Diabetes mellitus type II, controlled, with no complications Start:27-Apr-2014 Instruction Type:Patient Education Patient Instructions Indication:Diabetes mellitus type II, controlled, with no complications Start:27-Apr-2014 Instruction Type:Provider Instructions for Treatment How to access health informa tion online - Detail Indication:Diabetes mellitus type II, controlled, with no complications Start:09-Dec-2013 Instruction Type:Patient Education Patient Instructions Indication:Hypocalcemia Start:07-Jan-2013 Instruction Type:Provider Instructions for Treatment Patient Instructions Indication:Diabetes mellitus type II, controlled, with no complications Start:08-Oct-2012 Instruction Type:Provider Instructions for Treatment Name Dates Details How to access health informa tion online Indication:Non-smoker Start:02-Nov-2019 Instruction Type:Patient Education How to access health informa tion online - Detail Indication:Non-smoker Start:02-Nov-2019 Instruction Type:Patient Education Patient Instructions Indication:Non-smoker Start:02-Nov-2019 Instruction Type:Provider Instructions for Treatment How to access health informa tion online Indication:BMI 26.0-26.9,adult Start:28-Apr-2019 Instruction Type:Patient Education How to access health informa tion online - Detail Indication:BMI 26.0-26.9,adult Start:28-Apr-2019 Instruction Type:Patient Education Patient Instructions Indication:BMI 26.0-26.9,adult Start:28-Apr-2019 Instruction Type:Provider Instructions for Treatment How to access health informa tion online Indication:Diabetes mellitus type II, controlled, with no complications Start:23-Dec-2018 Instruction Type:Patient Education How to access health informa tion online - Detail Indication:Diabetes mellitus type II, controlled, with no complications Start:23-Dec-2018 Instruction Type:Patient Education Patient Instructions Indication:Diabetes mellitus type II, controlled, with no complications Start:23-Dec-2018 Instruction Type:Provider Instructions for Treatment Patient Instructions Indication:Non-smoker Start:30-Aug-2018 Instruction Type:Provider Instructions for Treatment How to access health informa tion online - Detail Indication:Non-smoker Start:30-Aug-2018 Instruction Type:Patient Education How to access health informa tion online Indication:Non-smoker Start:30-Aug-2018 Instruction Type:Patient Education How to access health informa tion online Indication:Diabetes mellitus type II, controlled, with no complications Start:17-May-2018 Instruction Type:Patient Education How to access health informa tion online - Detail Indication:Diabetes mellitus type II, controlled, with no complications Start:17-May-2018 Instruction Type:Patient Education Patient Instructions Indication:Diabetes mellitus type II, controlled, with no complications Start:17-May-2018 Instruction Type:Provider Instructions for Treatment How to access health informa tion online Indication:BMI 25.0-25.9,adult Start:12-Feb-2018 Instruction Type:Patient Education How to access health informa tion online - Detail Indication:BMI 25.0-25.9,adult Start:12-Feb-2018 Instruction Type:Patient Education Patient Instructions Indication:BMI 25.0-25.9,adult Start:12-Feb-2018 Instruction Type:Provider Instructions for Treatment How to access health informa tion online Indication:Diabetes mellitus type II, controlled, with no complications Start:17-Jul-2017 Instruction Type:Patient Education How to access health informa tion online - Detail Indication:Diabetes mellitus type II, controlled, with no complications Start:17-Jul-2017 Instruction Type:Patient Education Patient Instructions Indication:Diabetes mellitus type II, controlled, with no complications Start:17-Jul-2017 Instruction Type:Provider Instructions for Treatment How to access health informa tion online Indication:Non-smoker Start:10-Jul-2017 Instruction Type:Patient Education How to access health informa tion online - Detail Indication:Non-smoker Start:10-Jul-2017 Instruction Type:Patient Education Patient Instructions Indication:Non-smoker Start:10-Jul-2017 Instruction Type:Provider Instructions for Treatment How to access health informa tion online Indication:Diabetes mellitus type II, controlled, with no complications Start:17-Apr-2017 Instruction Type:Patient Education How to access health informa tion online - Detail Indication:Diabetes mellitus type II, controlled, with no complications Start:17-Apr-2017 Instruction Type:Patient Education Patient Instructions Indication:Diabetes mellitus type II, controlled, with no complications Start:17-Apr-2017 Instruction Type:Provider Instructions for Treatment How to access health informa tion online Indication:Tobacco abuse, 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) Start:27-Mar-2017 Instruction Type:Patient Education How to access health informa tion online - Detail Indication:Tobacco abuse, 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) Start:27-Mar-2017 Instruction Type:Patient Education Patient Instructions Indication:Tobacco abuse, 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) Start:27-Mar-2017 Instruction Type:Provider Instructions for Treatment How to access health informa tion online Indication:Diabetes mellitus type II, controlled, with no complications Start:09-Oct-2016 Instruction Type:Patient Education How to access health informa tion online - Detail Indication:Diabetes mellitus type II, controlled, with no complications Start:09-Oct-2016 Instruction Type:Patient Education Patient Instructions Indication:Diabetes mellitus type II, controlled, with no complications Start:09-Oct-2016 Instruction Type:Provider Instructions for Treatment How to access health informa tion online Indication:Diabetes mellitus type II, controlled, with no complications Start:11-Jun-2016 Instruction Type:Patient Education How to access health informa tion online - Detail Indication:Diabetes mellitus type II, controlled, with no complications Start:11-Jun-2016 Instruction Type:Patient Education Patient Instructions Indication:Diabetes mellitus type II, controlled, with no complications Start:11-Jun-2016 Instruction Type:Provider Instructions for Treatment How to access health informa tion online Indication:Body mass index (BMI) 24.0-24.9, adult Start:22-Apr-2016 Instruction Type:Patient Education How to access health informa tion online - Detail Indication:Body mass index (BMI) 24.0-24.9, adult Start:22-Apr-2016 Instruction Type:Patient Education Patient Instructions Indication:Body mass index (BMI) 24.0-24.9, adult Start:22-Apr-2016 Instruction Type:Provider Instructions for Treatment How to access health informa tion online Indication:Diabetes mellitus type II, controlled, with no complications Start:10-Mar-2016 Instruction Type:Patient Education How to access health informa tion online - Detail Indication:Diabetes mellitus type II, controlled, with no complications Start:10-Mar-2016 Instruction Type:Patient Education Patient Instructions Indication:Diabetes mellitus type II, controlled, with no complications Start:10-Mar-2016 Instruction Type:Provider Instructions for Treatment How to access health informa tion online Indication:Diabetes mellitus type II, controlled, with no complications Start:16-Jul-2015 Instruction Type:Patient Education How to access health informa tion online - Detail Indication:Diabetes mellitus type II, controlled, with no complications Start:16-Jul-2015 Instruction Type:Patient Education Patient Instructions Indication:Diabetes mellitus type II, controlled, with no complications Start:16-Jul-2015 Instruction Type:Provider Instructions for Treatment How to access health informa tion online Indication:Diabetes mellitus type II, controlled, with no complications Start:26-Dec-2014 Instruction Type:Patient Education How to access health informa tion online - Detail Indication:Diabetes mellitus type II, controlled, with no complications Start:26-Dec-2014 Instruction Type:Patient Education Patient Instructions Indication:Diabetes mellitus type II, controlled, with no complications Start:26-Dec-2014 Instruction Type:Provider Instructions for Treatment How to access health informa tion online Indication:Diabetes mellitus type II, controlled, with no complications Start:29-Aug-2014 Instruction Type:Patient Education How to access health informa tion online - Detail Indication:Diabetes mellitus type II, controlled, with no complications Start:29-Aug-2014 Instruction Type:Patient Education Patient Instructions Indication:Diabetes mellitus type II, controlled, with no complications Start:29-Aug-2014 Instruction Type:Provider Instructions for Treatment Weight check (V05.4) Indication:Weight loss Start:08-Jun-2014 Instruction Type:Nursing Car e Education How to access health informa tion online Indication:Diabetes mellitus type II, controlled, with no complications Start:27-Apr-2014 Instruction Type:Patient Education How to access health informa tion online - Detail Indication:Diabetes mellitus type II, controlled, with no complications Start:27-Apr-2014 Instruction Type:Patient Education Patient Instructions Indication:Diabetes mellitus type II, controlled, with no complications Start:27-Apr-2014 Instruction Type:Provider Instructions for Treatment How to access health informa tion online - Detail Indication:Diabetes mellitus type II, controlled, with no complications Start:09-Dec-2013 Instruction Type:Patient Education Patient Instructions Indication:Hypocalcemia Start:07-Jan-2013 Instruction Type:Provider Instructions for Treatment Patient Instructions Indication:Diabetes mellitus type II, controlled, with no complications Start:08-Oct-2012 Instruction Type:Provider Instructions for Treatment Name Dates Details How to access health informa tion online Indication:Non-smoker Start:02-Feb-2020 Instruction Type:Patient Education How to access health informa tion online - Detail Indication:Non-smoker Start:02-Feb-2020 Instruction Type:Patient Education Patient Instructions Indication:Non-smoker Start:02-Feb-2020 Instruction Type:Provider Instructions for Treatment How to access health informa tion online Indication:Non-smoker Start:02-Nov-2019 Instruction Type:Patient Education How to access health informa tion online - Detail Indication:Non-smoker Start:02-Nov-2019 Instruction Type:Patient Education Patient Instructions Indication:Non-smoker Start:02-Nov-2019 Instruction Type:Provider Instructions for Treatment How to access health informa tion online Indication:BMI 26.0-26.9,adult Start:28-Apr-2019 Instruction Type:Patient Education How to access health informa tion online - Detail Indication:BMI 26.0-26.9,adult Start:28-Apr-2019 Instruction Type:Patient Education Patient Instructions Indication:BMI 26.0-26.9,adult Start:28-Apr-2019 Instruction Type:Provider Instructions for Treatment How to access health informa tion online Indication:Diabetes mellitus type II, controlled, with no complications Start:23-Dec-2018 Instruction Type:Patient Education How to access health informa tion online - Detail Indication:Diabetes mellitus type II, controlled, with no complications Start:23-Dec-2018 Instruction Type:Patient Education Patient Instructions Indication:Diabetes mellitus type II, controlled, with no complications Start:23-Dec-2018 Instruction Type:Provider Instructions for Treatment Patient Instructions Indication:Non-smoker Start:30-Aug-2018 Instruction Type:Provider Instructions for Treatment How to access health informa tion online - Detail Indication:Non-smoker Start:30-Aug-2018 Instruction Type:Patient Education How to access health informa tion online Indication:Non-smoker Start:30-Aug-2018 Instruction Type:Patient Education How to access health informa tion online Indication:Diabetes mellitus type II, controlled, with no complications Start:17-May-2018 Instruction Type:Patient Education How to access health informa tion online - Detail Indication:Diabetes mellitus type II, controlled, with no complications Start:17-May-2018 Instruction Type:Patient Education Patient Instructions Indication:Diabetes mellitus type II, controlled, with no complications Start:17-May-2018 Instruction Type:Provider Instructions for Treatment How to access health informa tion online Indication:BMI 25.0-25.9,adult Start:12-Feb-2018 Instruction Type:Patient Education How to access health informa tion online - Detail Indication:BMI 25.0-25.9,adult Start:12-Feb-2018 Instruction Type:Patient Education Patient Instructions Indication:BMI 25.0-25.9,adult Start:12-Feb-2018 Instruction Type:Provider Instructions for Treatment How to access health informa tion online Indication:Diabetes mellitus type II, controlled, with no complications Start:17-Jul-2017 Instruction Type:Patient Education How to access health informa tion online - Detail Indication:Diabetes mellitus type II, controlled, with no complications Start:17-Jul-2017 Instruction Type:Patient Education Patient Instructions Indication:Diabetes mellitus type II, controlled, with no complications Start:17-Jul-2017 Instruction Type:Provider Instructions for Treatment How to access health informa tion online Indication:Non-smoker Start:10-Jul-2017 Instruction Type:Patient Education How to access health informa tion online - Detail Indication:Non-smoker Start:10-Jul-2017 Instruction Type:Patient Education Patient Instructions Indication:Non-smoker Start:10-Jul-2017 Instruction Type:Provider Instructions for Treatment How to access health informa tion online Indication:Diabetes mellitus type II, controlled, with no complications Start:17-Apr-2017 Instruction Type:Patient Education How to access health informa tion online - Detail Indication:Diabetes mellitus type II, controlled, with no complications Start:17-Apr-2017 Instruction Type:Patient Education Patient Instructions Indication:Diabetes mellitus type II, controlled, with no complications Start:17-Apr-2017 Instruction Type:Provider Instructions for Treatment How to access health informa tion online Indication:Tobacco abuse, 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) Start:27-Mar-2017 Instruction Type:Patient Education How to access health informa tion online - Detail Indication:Tobacco abuse, 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) Start:27-Mar-2017 Instruction Type:Patient Education Patient Instructions Indication:Tobacco abuse, 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) Start:27-Mar-2017 Instruction Type:Provider Instructions for Treatment How to access health informa tion online Indication:Diabetes mellitus type II, controlled, with no complications Start:09-Oct-2016 Instruction Type:Patient Education How to access health informa tion online - Detail Indication:Diabetes mellitus type II, controlled, with no complications Start:09-Oct-2016 Instruction Type:Patient Education Patient Instructions Indication:Diabetes mellitus type II, controlled, with no complications Start:09-Oct-2016 Instruction Type:Provider Instructions for Treatment How to access health informa tion online Indication:Diabetes mellitus type II, controlled, with no complications Start:11-Jun-2016 Instruction Type:Patient Education How to access health informa tion online - Detail Indication:Diabetes mellitus type II, controlled, with no complications Start:11-Jun-2016 Instruction Type:Patient Education Patient Instructions Indication:Diabetes mellitus type II, controlled, with no complications Start:11-Jun-2016 Instruction Type:Provider Instructions for Treatment How to access health informa tion online Indication:Body mass index (BMI) 24.0-24.9, adult Start:22-Apr-2016 Instruction Type:Patient Education How to access health informa tion online - Detail Indication:Body mass index (BMI) 24.0-24.9, adult Start:22-Apr-2016 Instruction Type:Patient Education Patient Instructions Indication:Body mass index (BMI) 24.0-24.9, adult Start:22-Apr-2016 Instruction Type:Provider Instructions for Treatment How to access health informa tion online Indication:Diabetes mellitus type II, controlled, with no complications Start:10-Mar-2016 Instruction Type:Patient Education How to access health informa tion online - Detail Indication:Diabetes mellitus type II, controlled, with no complications Start:10-Mar-2016 Instruction Type:Patient Education Patient Instructions Indication:Diabetes mellitus type II, controlled, with no complications Start:10-Mar-2016 Instruction Type:Provider Instructions for Treatment How to access health informa tion online Indication:Diabetes mellitus type II, controlled, with no complications Start:16-Jul-2015 Instruction Type:Patient Education How to access health informa tion online - Detail Indication:Diabetes mellitus type II, controlled, with no complications Start:16-Jul-2015 Instruction Type:Patient Education Patient Instructions Indication:Diabetes mellitus type II, controlled, with no complications Start:16-Jul-2015 Instruction Type:Provider Instructions for Treatment How to access health informa tion online Indication:Diabetes mellitus type II, controlled, with no complications Start:26-Dec-2014 Instruction Type:Patient Education How to access health informa tion online - Detail Indication:Diabetes mellitus type II, controlled, with no complications Start:26-Dec-2014 Instruction Type:Patient Education Patient Instructions Indication:Diabetes mellitus type II, controlled, with no complications Start:26-Dec-2014 Instruction Type:Provider Instructions for Treatment How to access health informa tion online Indication:Diabetes mellitus type II, controlled, with no complications Start:29-Aug-2014 Instruction Type:Patient Education How to access health informa tion online - Detail Indication:Diabetes mellitus type II, controlled, with no complications Start:29-Aug-2014 Instruction Type:Patient Education Patient Instructions Indication:Diabetes mellitus type II, controlled, with no complications Start:29-Aug-2014 Instruction Type:Provider Instructions for Treatment Weight check (V05.4) Indication:Weight loss Start:08-Jun-2014 Instruction Type:Nursing Car e Education How to access health informa tion online Indication:Diabetes mellitus type II, controlled, with no complications Start:27-Apr-2014 Instruction Type:Patient Education How to access health informa tion online - Detail Indication:Diabetes mellitus type II, controlled, with no complications Start:27-Apr-2014 Instruction Type:Patient Education Patient Instructions Indication:Diabetes mellitus type II, controlled, with no complications Start:27-Apr-2014 Instruction Type:Provider Instructions for Treatment How to access health informa tion online - Detail Indication:Diabetes mellitus type II, controlled, with no complications Start:09-Dec-2013 Instruction Type:Patient Education Patient Instructions Indication:Hypocalcemia Start:07-Jan-2013 Instruction Type:Provider Instructions for Treatment Patient Instructions Indication:Diabetes mellitus type II, controlled, with no complications Start:08-Oct-2012 Instruction Type:Provider Instructions for Treatment Name Dates Details How to access health informa tion online Indication:BMI 25.0-25.9,adult Start:14-Mar-2020 Instruction Type:Patient Education How to access health informa tion online - Detail Indication:BMI 25.0-25.9,adult Start:14-Mar-2020 Instruction Type:Patient Education Patient Instructions Indication:BMI 25.0-25.9,adult Start:14-Mar-2020 Instruction Type:Provider Instructions for Treatment How to access health informa tion online Indication:Non-smoker Start:02-Feb-2020 Instruction Type:Patient Education How to access health informa tion online - Detail Indication:Non-smoker Start:02-Feb-2020 Instruction Type:Patient Education Patient Instructions Indication:Non-smoker Start:02-Feb-2020 Instruction Type:Provider Instructions for Treatment How to access health informa tion online Indication:Non-smoker Start:02-Nov-2019 Instruction Type:Patient Education How to access health informa tion online - Detail Indication:Non-smoker Start:02-Nov-2019 Instruction Type:Patient Education Patient Instructions Indication:Non-smoker Start:02-Nov-2019 Instruction Type:Provider Instructions for Treatment How to access health informa tion online Indication:BMI 26.0-26.9,adult Start:28-Apr-2019 Instruction Type:Patient Education How to access health informa tion online - Detail Indication:BMI 26.0-26.9,adult Start:28-Apr-2019 Instruction Type:Patient Education Patient Instructions Indication:BMI 26.0-26.9,adult Start:28-Apr-2019 Instruction Type:Provider Instructions for Treatment How to access health informa tion online Indication:Diabetes mellitus type II, controlled, with no complications Start:23-Dec-2018 Instruction Type:Patient Education How to access health informa tion online - Detail Indication:Diabetes mellitus type II, controlled, with no complications Start:23-Dec-2018 Instruction Type:Patient Education Patient Instructions Indication:Diabetes mellitus type II, controlled, with no complications Start:23-Dec-2018 Instruction Type:Provider Instructions for Treatment Patient Instructions Indication:Non-smoker Start:30-Aug-2018 Instruction Type:Provider Instructions for Treatment How to access health informa tion online - Detail Indication:Non-smoker Start:30-Aug-2018 Instruction Type:Patient Education How to access health informa tion online Indication:Non-smoker Start:30-Aug-2018 Instruction Type:Patient Education How to access health informa tion online Indication:Diabetes mellitus type II, controlled, with no complications Start:17-May-2018 Instruction Type:Patient Education How to access health informa tion online - Detail Indication:Diabetes mellitus type II, controlled, with no complications Start:17-May-2018 Instruction Type:Patient Education Patient Instructions Indication:Diabetes mellitus type II, controlled, with no complications Start:17-May-2018 Instruction Type:Provider Instructions for Treatment How to access health informa tion online Indication:BMI 25.0-25.9,adult Start:12-Feb-2018 Instruction Type:Patient Education How to access health informa tion online - Detail Indication:BMI 25.0-25.9,adult Start:12-Feb-2018 Instruction Type:Patient Education Patient Instructions Indication:BMI 25.0-25.9,adult Start:12-Feb-2018 Instruction Type:Provider Instructions for Treatment How to access health informa tion online Indication:Diabetes mellitus type II, controlled, with no complications Start:17-Jul-2017 Instruction Type:Patient Education How to access health informa tion online - Detail Indication:Diabetes mellitus type II, controlled, with no complications Start:17-Jul-2017 Instruction Type:Patient Education Patient Instructions Indication:Diabetes mellitus type II, controlled, with no complications Start:17-Jul-2017 Instruction Type:Provider Instructions for Treatment How to access health informa tion online Indication:Non-smoker Start:10-Jul-2017 Instruction Type:Patient Education How to access health informa tion online - Detail Indication:Non-smoker Start:10-Jul-2017 Instruction Type:Patient Education Patient Instructions Indication:Non-smoker Start:10-Jul-2017 Instruction Type:Provider Instructions for Treatment How to access health informa tion online Indication:Diabetes mellitus type II, controlled, with no complications Start:17-Apr-2017 Instruction Type:Patient Education How to access health informa tion online - Detail Indication:Diabetes mellitus type II, controlled, with no complications Start:17-Apr-2017 Instruction Type:Patient Education Patient Instructions Indication:Diabetes mellitus type II, controlled, with no complications Start:17-Apr-2017 Instruction Type:Provider Instructions for Treatment How to access health informa tion online Indication:Tobacco abuse, 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) Start:27-Mar-2017 Instruction Type:Patient Education How to access health informa tion online - Detail Indication:Tobacco abuse, 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) Start:27-Mar-2017 Instruction Type:Patient Education Patient Instructions Indication:Tobacco abuse, 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) Start:27-Mar-2017 Instruction Type:Provider Instructions for Treatment How to access health informa tion online Indication:Diabetes mellitus type II, controlled, with no complications Start:09-Oct-2016 Instruction Type:Patient Education How to access health informa tion online - Detail Indication:Diabetes mellitus type II, controlled, with no complications Start:09-Oct-2016 Instruction Type:Patient Education Patient Instructions Indication:Diabetes mellitus type II, controlled, with no complications Start:09-Oct-2016 Instruction Type:Provider Instructions for Treatment How to access health informa tion online Indication:Diabetes mellitus type II, controlled, with no complications Start:11-Jun-2016 Instruction Type:Patient Education How to access health informa tion online - Detail Indication:Diabetes mellitus type II, controlled, with no complications Start:11-Jun-2016 Instruction Type:Patient Education Patient Instructions Indication:Diabetes mellitus type II, controlled, with no complications Start:11-Jun-2016 Instruction Type:Provider Instructions for Treatment How to access health informa tion online Indication:Body mass index (BMI) 24.0-24.9, adult Start:22-Apr-2016 Instruction Type:Patient Education How to access health informa tion online - Detail Indication:Body mass index (BMI) 24.0-24.9, adult Start:22-Apr-2016 Instruction Type:Patient Education Patient Instructions Indication:Body mass index (BMI) 24.0-24.9, adult Start:22-Apr-2016 Instruction Type:Provider Instructions for Treatment How to access health informa tion online Indication:Diabetes mellitus type II, controlled, with no complications Start:10-Mar-2016 Instruction Type:Patient Education How to access health informa tion online - Detail Indication:Diabetes mellitus type II, controlled, with no complications Start:10-Mar-2016 Instruction Type:Patient Education Patient Instructions Indication:Diabetes mellitus type II, controlled, with no complications Start:10-Mar-2016 Instruction Type:Provider Instructions for Treatment How to access health informa tion online Indication:Diabetes mellitus type II, controlled, with no complications Start:16-Jul-2015 Instruction Type:Patient Education How to access health informa tion online - Detail Indication:Diabetes mellitus type II, controlled, with no complications Start:16-Jul-2015 Instruction Type:Patient Education Patient Instructions Indication:Diabetes mellitus type II, controlled, with no complications Start:16-Jul-2015 Instruction Type:Provider Instructions for Treatment How to access health informa tion online Indication:Diabetes mellitus type II, controlled, with no complications Start:26-Dec-2014 Instruction Type:Patient Education How to access health informa tion online - Detail Indication:Diabetes mellitus type II, controlled, with no complications Start:26-Dec-2014 Instruction Type:Patient Education Patient Instructions Indication:Diabetes mellitus type II, controlled, with no complications Start:26-Dec-2014 Instruction Type:Provider Instructions for Treatment How to access health informa tion online Indication:Diabetes mellitus type II, controlled, with no complications Start:29-Aug-2014 Instruction Type:Patient Education How to access health informa tion online - Detail Indication:Diabetes mellitus type II, controlled, with no complications Start:29-Aug-2014 Instruction Type:Patient Education Patient Instructions Indication:Diabetes mellitus type II, controlled, with no complications Start:29-Aug-2014 Instruction Type:Provider Instructions for Treatment Weight check (V05.4) Indication:Weight loss Start:08-Jun-2014 Instruction Type:Nursing Car e Education How to access health informa tion online Indication:Diabetes mellitus type II, controlled, with no complications Start:27-Apr-2014 Instruction Type:Patient Education How to access health informa tion online - Detail Indication:Diabetes mellitus type II, controlled, with no complications Start:27-Apr-2014 Instruction Type:Patient Education Patient Instructions Indication:Diabetes mellitus type II, controlled, with no complications Start:27-Apr-2014 Instruction Type:Provider Instructions for Treatment How to access health informa tion online - Detail Indication:Diabetes mellitus type II, controlled, with no complications Start:09-Dec-2013 Instruction Type:Patient Education Patient Instructions Indication:Hypocalcemia Start:07-Jan-2013 Instruction Type:Provider Instructions for Treatment Patient Instructions Indication:Diabetes mellitus type II, controlled, with no complications Start:08-Oct-2012 Instruction Type:Provider Instructions for Treatment Name Dates Details How to access health informa tion online Indication:BMI 25.0-25.9,adult Start:14-Mar-2020 Instruction Type:Patient Education How to access health informa tion online - Detail Indication:BMI 25.0-25.9,adult Start:14-Mar-2020 Instruction Type:Patient Education Patient Instructions Indication:BMI 25.0-25.9,adult Start:14-Mar-2020 Instruction Type:Provider Instructions for Treatment How to access health informa tion online Indication:Non-smoker Start:02-Feb-2020 Instruction Type:Patient Education How to access health informa tion online - Detail Indication:Non-smoker Start:02-Feb-2020 Instruction Type:Patient Education Patient Instructions Indication:Non-smoker Start:02-Feb-2020 Instruction Type:Provider Instructions for Treatment How to access health informa tion online Indication:Non-smoker Start:02-Nov-2019 Instruction Type:Patient Education How to access health informa tion online - Detail Indication:Non-smoker Start:02-Nov-2019 Instruction Type:Patient Education Patient Instructions Indication:Non-smoker Start:02-Nov-2019 Instruction Type:Provider Instructions for Treatment How to access health informa tion online Indication:BMI 26.0-26.9,adult Start:28-Apr-2019 Instruction Type:Patient Education How to access health informa tion online - Detail Indication:BMI 26.0-26.9,adult Start:28-Apr-2019 Instruction Type:Patient Education Patient Instructions Indication:BMI 26.0-26.9,adult Start:28-Apr-2019 Instruction Type:Provider Instructions for Treatment How to access health informa tion online Indication:Diabetes mellitus type II, controlled, with no complications Start:23-Dec-2018 Instruction Type:Patient Education How to access health informa tion online - Detail Indication:Diabetes mellitus type II, controlled, with no complications Start:23-Dec-2018 Instruction Type:Patient Education Patient Instructions Indication:Diabetes mellitus type II, controlled, with no complications Start:23-Dec-2018 Instruction Type:Provider Instructions for Treatment Patient Instructions Indication:Non-smoker Start:30-Aug-2018 Instruction Type:Provider Instructions for Treatment How to access health informa tion online - Detail Indication:Non-smoker Start:30-Aug-2018 Instruction Type:Patient Education How to access health informa tion online Indication:Non-smoker Start:30-Aug-2018 Instruction Type:Patient Education How to access health informa tion online Indication:Diabetes mellitus type II, controlled, with no complications Start:17-May-2018 Instruction Type:Patient Education How to access health informa tion online - Detail Indication:Diabetes mellitus type II, controlled, with no complications Start:17-May-2018 Instruction Type:Patient Education Patient Instructions Indication:Diabetes mellitus type II, controlled, with no complications Start:17-May-2018 Instruction Type:Provider Instructions for Treatment How to access health informa tion online Indication:BMI 25.0-25.9,adult Start:12-Feb-2018 Instruction Type:Patient Education How to access health informa tion online - Detail Indication:BMI 25.0-25.9,adult Start:12-Feb-2018 Instruction Type:Patient Education Patient Instructions Indication:BMI 25.0-25.9,adult Start:12-Feb-2018 Instruction Type:Provider Instructions for Treatment How to access health informa tion online Indication:Diabetes mellitus type II, controlled, with no complications Start:17-Jul-2017 Instruction Type:Patient Education How to access health informa tion online - Detail Indication:Diabetes mellitus type II, controlled, with no complications Start:17-Jul-2017 Instruction Type:Patient Education Patient Instructions Indication:Diabetes mellitus type II, controlled, with no complications Start:17-Jul-2017 Instruction Type:Provider Instructions for Treatment How to access health informa tion online Indication:Non-smoker Start:10-Jul-2017 Instruction Type:Patient Education How to access health informa tion online - Detail Indication:Non-smoker Start:10-Jul-2017 Instruction Type:Patient Education Patient Instructions Indication:Non-smoker Start:10-Jul-2017 Instruction Type:Provider Instructions for Treatment How to access health informa tion online Indication:Diabetes mellitus type II, controlled, with no complications Start:17-Apr-2017 Instruction Type:Patient Education How to access health informa tion online - Detail Indication:Diabetes mellitus type II, controlled, with no complications Start:17-Apr-2017 Instruction Type:Patient Education Patient Instructions Indication:Diabetes mellitus type II, controlled, with no complications Start:17-Apr-2017 Instruction Type:Provider Instructions for Treatment How to access health informa tion online Indication:Tobacco abuse, 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) Start:27-Mar-2017 Instruction Type:Patient Education How to access health informa tion online - Detail Indication:Tobacco abuse, 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) Start:27-Mar-2017 Instruction Type:Patient Education Patient Instructions Indication:Tobacco abuse, 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) Start:27-Mar-2017 Instruction Type:Provider Instructions for Treatment How to access health informa tion online Indication:Diabetes mellitus type II, controlled, with no complications Start:09-Oct-2016 Instruction Type:Patient Education How to access health informa tion online - Detail Indication:Diabetes mellitus type II, controlled, with no complications Start:09-Oct-2016 Instruction Type:Patient Education Patient Instructions Indication:Diabetes mellitus type II, controlled, with no complications Start:09-Oct-2016 Instruction Type:Provider Instructions for Treatment How to access health informa tion online Indication:Diabetes mellitus type II, controlled, with no complications Start:11-Jun-2016 Instruction Type:Patient Education How to access health informa tion online - Detail Indication:Diabetes mellitus type II, controlled, with no complications Start:11-Jun-2016 Instruction Type:Patient Education Patient Instructions Indication:Diabetes mellitus type II, controlled, with no complications Start:11-Jun-2016 Instruction Type:Provider Instructions for Treatment How to access health informa tion online Indication:Body mass index (BMI) 24.0-24.9, adult Start:22-Apr-2016 Instruction Type:Patient Education How to access health informa tion online - Detail Indication:Body mass index (BMI) 24.0-24.9, adult Start:22-Apr-2016 Instruction Type:Patient Education Patient Instructions Indication:Body mass index (BMI) 24.0-24.9, adult Start:22-Apr-2016 Instruction Type:Provider Instructions for Treatment How to access health informa tion online Indication:Diabetes mellitus type II, controlled, with no complications Start:10-Mar-2016 Instruction Type:Patient Education How to access health informa tion online - Detail Indication:Diabetes mellitus type II, controlled, with no complications Start:10-Mar-2016 Instruction Type:Patient Education Patient Instructions Indication:Diabetes mellitus type II, controlled, with no complications Start:10-Mar-2016 Instruction Type:Provider Instructions for Treatment How to access health informa tion online Indication:Diabetes mellitus type II, controlled, with no complications Start:16-Jul-2015 Instruction Type:Patient Education How to access health informa tion online - Detail Indication:Diabetes mellitus type II, controlled, with no complications Start:16-Jul-2015 Instruction Type:Patient Education Patient Instructions Indication:Diabetes mellitus type II, controlled, with no complications Start:16-Jul-2015 Instruction Type:Provider Instructions for Treatment How to access health informa tion online Indication:Diabetes mellitus type II, controlled, with no complications Start:26-Dec-2014 Instruction Type:Patient Education How to access health informa tion online - Detail Indication:Diabetes mellitus type II, controlled, with no complications Start:26-Dec-2014 Instruction Type:Patient Education Patient Instructions Indication:Diabetes mellitus type II, controlled, with no complications Start:26-Dec-2014 Instruction Type:Provider Instructions for Treatment How to access health informa tion online Indication:Diabetes mellitus type II, controlled, with no complications Start:29-Aug-2014 Instruction Type:Patient Education How to access health informa tion online - Detail Indication:Diabetes mellitus type II, controlled, with no complications Start:29-Aug-2014 Instruction Type:Patient Education Patient Instructions Indication:Diabetes mellitus type II, controlled, with no complications Start:29-Aug-2014 Instruction Type:Provider Instructions for Treatment Weight check (V05.4) Indication:Weight loss Start:08-Jun-2014 Instruction Type:Nursing Car e Education How to access health informa tion online Indication:Diabetes mellitus type II, controlled, with no complications Start:27-Apr-2014 Instruction Type:Patient Education How to access health informa tion online - Detail Indication:Diabetes mellitus type II, controlled, with no complications Start:27-Apr-2014 Instruction Type:Patient Education Patient Instructions Indication:Diabetes mellitus type II, controlled, with no complications Start:27-Apr-2014 Instruction Type:Provider Instructions for Treatment How to access health informa tion online - Detail Indication:Diabetes mellitus type II, controlled, with no complications Start:09-Dec-2013 Instruction Type:Patient Education Patient Instructions Indication:Hypocalcemia Start:07-Jan-2013 Instruction Type:Provider Instructions for Treatment Patient Instructions Indication:Diabetes mellitus type II, controlled, with no complications Start:08-Oct-2012 Instruction Type:Provider Instructions for Treatment Name Dates Details Patient Instructions Indication:BMI 25.0-25.9,adult Start:04-May-2020 Instruction Type:Provider Instructions for Treatment How to Access Health Informa tion Online using Patient Portal and 3rd [employer] Apps Indication:BMI 25.0-25.9,adult Start:04-May-2020 Instruction Type:Patient Education How to access health informa tion online Indication:BMI 25.0-25.9,adult Start:14-Mar-2020 Instruction Type:Patient Education How to access health informa tion online - Detail Indication:BMI 25.0-25.9,adult Start:14-Mar-2020 Instruction Type:Patient Education Patient Instructions Indication:BMI 25.0-25.9,adult Start:14-Mar-2020 Instruction Type:Provider Instructions for Treatment How to access health informa tion online Indication:Non-smoker Start:02-Feb-2020 Instruction Type:Patient Education How to access health informa tion online - Detail Indication:Non-smoker Start:02-Feb-2020 Instruction Type:Patient Education Patient Instructions Indication:Non-smoker Start:02-Feb-2020 Instruction Type:Provider Instructions for Treatment How to access health informa tion online Indication:Non-smoker Start:02-Nov-2019 Instruction Type:Patient Education How to access health informa tion online - Detail Indication:Non-smoker Start:02-Nov-2019 Instruction Type:Patient Education Patient Instructions Indication:Non-smoker Start:02-Nov-2019 Instruction Type:Provider Instructions for Treatment How to access health informa tion online Indication:BMI 26.0-26.9,adult Start:28-Apr-2019 Instruction Type:Patient Education How to access health informa tion online - Detail Indication:BMI 26.0-26.9,adult Start:28-Apr-2019 Instruction Type:Patient Education Patient Instructions Indication:BMI 26.0-26.9,adult Start:28-Apr-2019 Instruction Type:Provider Instructions for Treatment How to access health informa tion online Indication:Diabetes mellitus type II, controlled, with no complications Start:23-Dec-2018 Instruction Type:Patient Education How to access health informa tion online - Detail Indication:Diabetes mellitus type II, controlled, with no complications Start:23-Dec-2018 Instruction Type:Patient Education Patient Instructions Indication:Diabetes mellitus type II, controlled, with no complications Start:23-Dec-2018 Instruction Type:Provider Instructions for Treatment Patient Instructions Indication:Non-smoker Start:30-Aug-2018 Instruction Type:Provider Instructions for Treatment How to access health informa tion online - Detail Indication:Non-smoker Start:30-Aug-2018 Instruction Type:Patient Education How to access health informa tion online Indication:Non-smoker Start:30-Aug-2018 Instruction Type:Patient Education How to access health informa tion online Indication:Diabetes mellitus type II, controlled, with no complications Start:17-May-2018 Instruction Type:Patient Education How to access health informa tion online - Detail Indication:Diabetes mellitus type II, controlled, with no complications Start:17-May-2018 Instruction Type:Patient Education Patient Instructions Indication:Diabetes mellitus type II, controlled, with no complications Start:17-May-2018 Instruction Type:Provider Instructions for Treatment How to access health informa tion online Indication:BMI 25.0-25.9,adult Start:12-Feb-2018 Instruction Type:Patient Education How to access health informa tion online - Detail Indication:BMI 25.0-25.9,adult Start:12-Feb-2018 Instruction Type:Patient Education Patient Instructions Indication:BMI 25.0-25.9,adult Start:12-Feb-2018 Instruction Type:Provider Instructions for Treatment How to access health informa tion online Indication:Diabetes mellitus type II, controlled, with no complications Start:17-Jul-2017 Instruction Type:Patient Education How to access health informa tion online - Detail Indication:Diabetes mellitus type II, controlled, with no complications Start:17-Jul-2017 Instruction Type:Patient Education Patient Instructions Indication:Diabetes mellitus type II, controlled, with no complications Start:17-Jul-2017 Instruction Type:Provider Instructions for Treatment How to access health informa tion online Indication:Non-smoker Start:10-Jul-2017 Instruction Type:Patient Education How to access health informa tion online - Detail Indication:Non-smoker Start:10-Jul-2017 Instruction Type:Patient Education Patient Instructions Indication:Non-smoker Start:10-Jul-2017 Instruction Type:Provider Instructions for Treatment How to access health informa tion online Indication:Diabetes mellitus type II, controlled, with no complications Start:17-Apr-2017 Instruction Type:Patient Education How to access health informa tion online - Detail Indication:Diabetes mellitus type II, controlled, with no complications Start:17-Apr-2017 Instruction Type:Patient Education Patient Instructions Indication:Diabetes mellitus type II, controlled, with no complications Start:17-Apr-2017 Instruction Type:Provider Instructions for Treatment How to access health informa tion online Indication:Tobacco abuse, 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) Start:27-Mar-2017 Instruction Type:Patient Education How to access health informa tion online - Detail Indication:Tobacco abuse, 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) Start:27-Mar-2017 Instruction Type:Patient Education Patient Instructions Indication:Tobacco abuse, 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) Start:27-Mar-2017 Instruction Type:Provider Instructions for Treatment How to access health informa tion online Indication:Diabetes mellitus type II, controlled, with no complications Start:09-Oct-2016 Instruction Type:Patient Education How to access health informa tion online - Detail Indication:Diabetes mellitus type II, controlled, with no complications Start:09-Oct-2016 Instruction Type:Patient Education Patient Instructions Indication:Diabetes mellitus type II, controlled, with no complications Start:09-Oct-2016 Instruction Type:Provider Instructions for Treatment How to access health informa tion online Indication:Diabetes mellitus type II, controlled, with no complications Start:11-Jun-2016 Instruction Type:Patient Education How to access health informa tion online - Detail Indication:Diabetes mellitus type II, controlled, with no complications Start:11-Jun-2016 Instruction Type:Patient Education Patient Instructions Indication:Diabetes mellitus type II, controlled, with no complications Start:11-Jun-2016 Instruction Type:Provider Instructions for Treatment How to access health informa tion online Indication:Body mass index (BMI) 24.0-24.9, adult Start:22-Apr-2016 Instruction Type:Patient Education How to access health informa tion online - Detail Indication:Body mass index (BMI) 24.0-24.9, adult Start:22-Apr-2016 Instruction Type:Patient Education Patient Instructions Indication:Body mass index (BMI) 24.0-24.9, adult Start:22-Apr-2016 Instruction Type:Provider Instructions for Treatment How to access health informa tion online Indication:Diabetes mellitus type II, controlled, with no complications Start:10-Mar-2016 Instruction Type:Patient Education How to access health informa tion online - Detail Indication:Diabetes mellitus type II, controlled, with no complications Start:10-Mar-2016 Instruction Type:Patient Education Patient Instructions Indication:Diabetes mellitus type II, controlled, with no complications Start:10-Mar-2016 Instruction Type:Provider Instructions for Treatment How to access health informa tion online Indication:Diabetes mellitus type II, controlled, with no complications Start:16-Jul-2015 Instruction Type:Patient Education How to access health informa tion online - Detail Indication:Diabetes mellitus type II, controlled, with no complications Start:16-Jul-2015 Instruction Type:Patient Education Patient Instructions Indication:Diabetes mellitus type II, controlled, with no complications Start:16-Jul-2015 Instruction Type:Provider Instructions for Treatment How to access health informa tion online Indication:Diabetes mellitus type II, controlled, with no complications Start:26-Dec-2014 Instruction Type:Patient Education How to access health informa tion online - Detail Indication:Diabetes mellitus type II, controlled, with no complications Start:26-Dec-2014 Instruction Type:Patient Education Patient Instructions Indication:Diabetes mellitus type II, controlled, with no complications Start:26-Dec-2014 Instruction Type:Provider Instructions for Treatment How to access health informa tion online Indication:Diabetes mellitus type II, controlled, with no complications Start:29-Aug-2014 Instruction Type:Patient Education How to access health informa tion online - Detail Indication:Diabetes mellitus type II, controlled, with no complications Start:29-Aug-2014 Instruction Type:Patient Education Patient Instructions Indication:Diabetes mellitus type II, controlled, with no complications Start:29-Aug-2014 Instruction Type:Provider Instructions for Treatment Weight check (V05.4) Indication:Weight loss Start:08-Jun-2014 Instruction Type:Nursing Car e Education How to access health informa tion online Indication:Diabetes mellitus type II, controlled, with no complications Start:27-Apr-2014 Instruction Type:Patient Education How to access health informa tion online - Detail Indication:Diabetes mellitus type II, controlled, with no complications Start:27-Apr-2014 Instruction Type:Patient Education Patient Instructions Indication:Diabetes mellitus type II, controlled, with no complications Start:27-Apr-2014 Instruction Type:Provider Instructions for Treatment How to access health informa tion online - Detail Indication:Diabetes mellitus type II, controlled, with no complications Start:09-Dec-2013 Instruction Type:Patient Education Patient Instructions Indication:Hypocalcemia Start:07-Jan-2013 Instruction Type:Provider Instructions for Treatment Patient Instructions Indication:Diabetes mellitus type II, controlled, with no complications Start:08-Oct-2012 Instruction Type:Provider Instructions for Treatment Name Dates Details How to access health informa tion online Indication:Diabetes mellitus type II, controlled, with no complications Start:23-Dec-2018 Instruction Type:Patient Education How to access health informa tion online - Detail Indication:Diabetes mellitus type II, controlled, with no complications Start:23-Dec-2018 Instruction Type:Patient Education Patient Instructions Indication:Diabetes mellitus type II, controlled, with no complications Start:23-Dec-2018 Instruction Type:Provider Instructions for Treatment Patient Instructions Indication:Non-smoker Start:30-Aug-2018 Instruction Type:Provider Instructions for Treatment How to access health informa tion online - Detail Indication:Non-smoker Start:30-Aug-2018 Instruction Type:Patient Education How to access health informa tion online Indication:Non-smoker Start:30-Aug-2018 Instruction Type:Patient Education How to access health informa tion online Indication:Diabetes mellitus type II, controlled, with no complications Start:17-May-2018 Instruction Type:Patient Education How to access health informa tion online - Detail Indication:Diabetes mellitus type II, controlled, with no complications Start:17-May-2018 Instruction Type:Patient Education Patient Instructions Indication:Diabetes mellitus type II, controlled, with no complications Start:17-May-2018 Instruction Type:Provider Instructions for Treatment How to access health informa tion online Indication:BMI 25.0-25.9,adult Start:12-Feb-2018 Instruction Type:Patient Education How to access health informa tion online - Detail Indication:BMI 25.0-25.9,adult Start:12-Feb-2018 Instruction Type:Patient Education Patient Instructions Indication:BMI 25.0-25.9,adult Start:12-Feb-2018 Instruction Type:Provider Instructions for Treatment How to access health informa tion online Indication:Diabetes mellitus type II, controlled, with no complications Start:17-Jul-2017 Instruction Type:Patient Education How to access health informa tion online - Detail Indication:Diabetes mellitus type II, controlled, with no complications Start:17-Jul-2017 Instruction Type:Patient Education Patient Instructions Indication:Diabetes mellitus type II, controlled, with no complications Start:17-Jul-2017 Instruction Type:Provider Instructions for Treatment How to access health informa tion online Indication:Non-smoker Start:10-Jul-2017 Instruction Type:Patient Education How to access health informa tion online - Detail Indication:Non-smoker Start:10-Jul-2017 Instruction Type:Patient Education Patient Instructions Indication:Non-smoker Start:10-Jul-2017 Instruction Type:Provider Instructions for Treatment How to access health informa tion online Indication:Diabetes mellitus type II, controlled, with no complications Start:17-Apr-2017 Instruction Type:Patient Education How to access health informa tion online - Detail Indication:Diabetes mellitus type II, controlled, with no complications Start:17-Apr-2017 Instruction Type:Patient Education Patient Instructions Indication:Diabetes mellitus type II, controlled, with no complications Start:17-Apr-2017 Instruction Type:Provider Instructions for Treatment How to access health informa tion online Indication:Tobacco abuse, 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) Start:27-Mar-2017 Instruction Type:Patient Education How to access health informa tion online - Detail Indication:Tobacco abuse, 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) Start:27-Mar-2017 Instruction Type:Patient Education Patient Instructions Indication:Tobacco abuse, 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) Start:27-Mar-2017 Instruction Type:Provider Instructions for Treatment How to access health informa tion online Indication:Diabetes mellitus type II, controlled, with no complications Start:09-Oct-2016 Instruction Type:Patient Education How to access health informa tion online - Detail Indication:Diabetes mellitus type II, controlled, with no complications Start:09-Oct-2016 Instruction Type:Patient Education Patient Instructions Indication:Diabetes mellitus type II, controlled, with no complications Start:09-Oct-2016 Instruction Type:Provider Instructions for Treatment How to access health informa tion online Indication:Diabetes mellitus type II, controlled, with no complications Start:11-Jun-2016 Instruction Type:Patient Education How to access health informa tion online - Detail Indication:Diabetes mellitus type II, controlled, with no complications Start:11-Jun-2016 Instruction Type:Patient Education Patient Instructions Indication:Diabetes mellitus type II, controlled, with no complications Start:11-Jun-2016 Instruction Type:Provider Instructions for Treatment How to access health informa tion online Indication:Body mass index (BMI) 24.0-24.9, adult Start:22-Apr-2016 Instruction Type:Patient Education How to access health informa tion online - Detail Indication:Body mass index (BMI) 24.0-24.9, adult Start:22-Apr-2016 Instruction Type:Patient Education Patient Instructions Indication:Body mass index (BMI) 24.0-24.9, adult Start:22-Apr-2016 Instruction Type:Provider Instructions for Treatment How to access health informa tion online Indication:Diabetes mellitus type II, controlled, with no complications Start:10-Mar-2016 Instruction Type:Patient Education How to access health informa tion online - Detail Indication:Diabetes mellitus type II, controlled, with no complications Start:10-Mar-2016 Instruction Type:Patient Education Patient Instructions Indication:Diabetes mellitus type II, controlled, with no complications Start:10-Mar-2016 Instruction Type:Provider Instructions for Treatment How to access health informa tion online Indication:Diabetes mellitus type II, controlled, with no complications Start:16-Jul-2015 Instruction Type:Patient Education How to access health informa tion online - Detail Indication:Diabetes mellitus type II, controlled, with no complications Start:16-Jul-2015 Instruction Type:Patient Education Patient Instructions Indication:Diabetes mellitus type II, controlled, with no complications Start:16-Jul-2015 Instruction Type:Provider Instructions for Treatment How to access health informa tion online Indication:Diabetes mellitus type II, controlled, with no complications Start:26-Dec-2014 Instruction Type:Patient Education How to access health informa tion online - Detail Indication:Diabetes mellitus type II, controlled, with no complications Start:26-Dec-2014 Instruction Type:Patient Education Patient Instructions Indication:Diabetes mellitus type II, controlled, with no complications Start:26-Dec-2014 Instruction Type:Provider Instructions for Treatment How to access health informa tion online Indication:Diabetes mellitus type II, controlled, with no complications Start:29-Aug-2014 Instruction Type:Patient Education How to access health informa tion online - Detail Indication:Diabetes mellitus type II, controlled, with no complications Start:29-Aug-2014 Instruction Type:Patient Education Patient Instructions Indication:Diabetes mellitus type II, controlled, with no complications Start:29-Aug-2014 Instruction Type:Provider Instructions for Treatment Weight check (V05.4) Indication:Weight loss Start:08-Jun-2014 Instruction Type:Nursing Car e Education How to access health informa tion online Indication:Diabetes mellitus type II, controlled, with no complications Start:27-Apr-2014 Instruction Type:Patient Education How to access health informa tion online - Detail Indication:Diabetes mellitus type II, controlled, with no complications Start:27-Apr-2014 Instruction Type:Patient Education Patient Instructions Indication:Diabetes mellitus type II, controlled, with no complications Start:27-Apr-2014 Instruction Type:Provider Instructions for Treatment How to access health informa tion online - Detail Indication:Diabetes mellitus type II, controlled, with no complications Start:09-Dec-2013 Instruction Type:Patient Education Patient Instructions Indication:Hypocalcemia Start:07-Jan-2013 Instruction Type:Provider Instructions for Treatment Patient Instructions Indication:Diabetes mellitus type II, controlled, with no complications Start:08-Oct-2012 Instruction Type:Provider Instructions for Treatment Summary Purpose Advance Directives Documents on File Type Date Recorded 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 Expiration date unspecified Effective:01-Oct-2022 Name Dates Details Immunization Registry [place] - Effective on 10/01/2022. Expiration date unspecified Effective:01-Oct-2022 Name Dates Details Immunization Registry [place] - Effective on 10/01/2022. Expiration date unspecified Effective:01-Oct-2022 Name Dates Details Immunization Registry [place] - Effective on 10/01/2022. Expiration date unspecified Effective:01-Oct-2022 Advance Directive Response Recorded Date/ Time Living Will Yes April 01, 2 019 12:50pm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
--- NOTE | 2024-12-15 12:10 | BD_ITS ---
PROCEDURE: DEXA BONE DENSITY STUDY 12/15/2024 REASON FOR EXAM: M, age 74 y/o . Postmenopausal. TECHNIQUE: DEXA BONE DENSITY STUDY COMPARISON: Prior study dated December 19, 2008. FINDINGS: BMD and T-SCORES Lumbar spine: 1.279 g/cm2, T-score 2.1 Levels: L1 through L4 Change from prior: Loss of 5%. Left femoral neck: 0.818 g/cm2, T-score -0.8 Femoral neck comparison data not recommended for monitoring change. Left total hip: 0.983 g/cm2, T-score -0.3 Change from prior: Loss of 15.2%. Right femoral neck: 0.894 g/cm2, T-score -0.3 Femoral neck comparison data not recommended for monitoring change. Right total hip: 1.103 g/cm2, T-score 0.5 Change from prior: Loss of 3.8%. The World Health Organization has defined the following categories based on bone density: Normal bone density: T-score equal to or greater than -1.0 Osteopenia: T-score between -1.0 and -2.5 Osteoporosis: T-score equal to or less than -2.5 The patient does meet the pharmacological treatment recommendations for prevention of osteoporosis. BD/Dexa Bone Density Study IMPRESSION: NORMAL T-SCORES. Recommend follow-up as clinically warranted. Reading Location: [id number]
== END 2024-12-15 23:59 | disposition home or self-care (01) ==
PROVIDERS: PCP Internal Medicine; Referring Provider Internal Medicine; Visit Provider Internal Medicine
DX: E55.9 Vitamin D deficiency, unspecified (principal); M81.0 Age-related osteoporosis without current pathological fracture
CPT/HCPCS: 77080

== ENCOUNTER → 2025-02-28 | Outpatient (CLI) | payer OTHER, SELFPAY ==
[2025-02-28 17:35] LABS: PSA,Total - Annual Screen 1.35 ng/mL (0.02-4.00)
== END | disposition home or self-care (01) ==
LOC: LAB 15:29
PROVIDERS: PCP Internal Medicine; Referring Provider Internal Medicine; Visit Provider Internal Medicine
DX: Z12.5 Encounter for screening for malignant neoplasm of prostate (principal)
CPT/HCPCS: 36415; 84153; G0103